=== PATIENT | female | born 1945 | race Caucasian/White ===

== ENCOUNTER → 2016-07-27 | Outpatient (CLI) | payer OTHER ==
[~2016-07-27] MED LIST: GADOBUTROL 10 ML VIAL IVP ONE; GLUCAGON,HUMAN RECOMBINANT 0.3 MG in SYRINGE 0.3 ML IVP ONE
[2016-07-27 12:30] LABS: CREATININE 0.9 mg/dL (0.6-1.0); GLOMERULAR FILTRATION RATE > 60
--- NOTE | 2016-07-27 17:40 | MR ---
MR Enterography (Abdomen and Pelvis) Without and With IV Contrast Indication: 70-year-old woman with history of Crohn disease. History of abscess. Follow up. Technique: Standard MR enterography protocol utilizing T2 and multiplanar T1 without and with contras t with fat suppression. Patient received 4 mL Gadavist intravenously without complication. Patient re ceived a total dose of 0.6 mg glucagon intravenously to minimize bowel peristalsis/motion artifact. P atient ingested 700 mL of negative oral contrast agent. Comparison: CT of the abdomen and pelvis dated December 03 and January 02, 2016. Findings: A 10-cm segment of the terminal ileum, extending to the ileocecal valve, has circumferentia l wall thickening and exuberant mucosal enhancement, indicative of active on chronic ileitis. The dis tati ileum is narrow and the small bowel just upstream from the active inflammation is mildly distende d up to 4 cm, suggestive of a low-grade partial obstruction due to underlying stricture and active in flammation. No residual abscess; however, residual architectural distortion and linear bands of enhancement commu nicating with adjacent loops of nondilated small bowel suggest fistula formation between the terminal ileum and adjacent loops of small bowel in the right lower quadrant. No free fluid. No other site of active inflammation or bowel wall thickening. No enlarged lymph node or mass. The liver, spleen, pancreas, adrenal glands, and kidneys are unremarkable. Simple bilateral renal cys ts are unchanged. No hydronephrosis. The bile ducts are normal caliber and normally taper to the major papilla. No evidence of common bile duct stone. Gallbladder is normal. No intraluminal stones or sludge. Bone marrow signal is normal. Minimal bilateral sacroiliitis is consistent with history of Crohn dise ase. Impression: 1. Active on chronic terminal ileitis and low-grade stenosis consistent with Crohn disease. 2. No residual abscess. 3. 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 4. Minimal enteropathic sacroiliitis.
== END ==
LOC: FIMAGING 11:06
PROVIDERS: ATTEND Internal Medicine Gastroenterology
DX: M46.1 Sacroiliitis, not elsewhere classified (principal); K50.814 Crohn's disease of both small and large intestine with abscess
CPT/HCPCS: 72196; 74182; A9585; J1610

== ENCOUNTER 2016-11-01 16:48 | Inpatient (IN) | payer OTHER ==
[2016-11-01] MEDS ORDERED: HYDROmorphONE/DILAUDID 1 MG/ML SYR IVP ONE ×2 (16:53→18:10)
[2016-11-01] MEDS ORDERED: NS 1,000 ML IV ONE (16:53)
[2016-11-01] MEDS ORDERED: ONDANSETRON 4 MG/2 ML VIAL IVP ONE (16:54)
--- NOTE | 2016-11-01 16:56 | EDPHY ---
H & P HPI/ROS: HPI CHIEF COMPLAINT: Abdominal pain, nausea, vomiting HISTORY OF PRESENT ILLNESS: This patient very pleasant 71-year-old female, she presents emergency room with abdominal pain x2 days with nausea vomiting. She tells me that she has a history of Crohn's disease takes daily steroids 5 mg twice daily she has had previous abdominal surgery including bowel resection. She tells me that the past 2 days she has had progressively worsening abdominal pain it is in her lower abdomen crampy with associated nausea vomiting. No bowel movement in 2 days. She thinks she may have a bowel obstruction. Past Medical History: Crohn's disease, arthritis Past Surgical History: Bowel resection, tubal ligation, SBO Social History: Denies daily use of drugs alcohol tobacco products Family History: Noncontributory ROS REVIEW OF SYSTEMS: A comprehensive 10 point review of systems is otherwise negative aside from elements mentioned in the history of present illness. Exam Constitutional triage nursing summary reviewed, vital signs reviewed, awake/ alert. Eyes normal conjunctivae and sclera, EOMI, PERRLA. HENT normal inspection, atraumatic, moist mucus membranes, no epistaxis, neck supple/ no meningismus, no raccoon eyes. Respiratory clear to auscultation bilaterally, normal breath sounds, no respiratory distress, no wheezing. Cardiovascular rate normal, regular rhythm, no murmur, no edema, distal pulses normal. Gastrointestinal mild tender palpation lower abdomen, no rebound, no guarding, normal bowel sounds, no distension, no pulsatile mass. Genitourinary no CVA tenderness. Musculoskeletal no midline vertebral tenderness, full range of motion, no calf swelling, no tenderness of extremities, no meningismus, good pulses, neurovascularly intact. Skin pink, warm, & dry, no rash, skin atraumatic. Neurologic awake, alert and oriented x 3, AAOx3, moves all 4 extremities equally, motor intact, sensory intact, CN II-XII intact, normal cerebellar, normal vision, normal speech. Psychiatric normal mood/affect. Heme/Lymph/Immune no lymphadenopathy. Differential diagnosis includes but is not limited to and in no particular order : Crohn's flare, Bowel obstruction, appendicitis, gallbladder disease, diverticulitis, colitis, enteritis, perforated viscus, gastritis, GERD, esophagitis, urinary tract infection, pyelonephritis, kidney stones Medical Decision Making: this patient had an IV established obtain blood work, patient be given a fluid bolus, IV Zofran for nausea, IV Dilaudid for pain control. Patient need a CT scan abdomen pelvis with IV contrast to rule out bowel perforation Crohn's inflammatory process or obstruction. Re-evaluation: CT scan of the abdomen pelvis with IV contrast. The results of the study are this shows a 10 cm area of focus inflammation of the distal ileum consistent with acute Crohn's however no evidence of perforation or free air no evidence of bowel obstruction The study was read by Dr. Roa I viewed the images myself on the PACS system. 182: Spoke with Dr. Olson with GI. Will See. Understands patient be admitted to the hospitalist service for Crohn's flare. Did not recommend steroids at this time. Will consult on the patient. 1825: I did update this patient she understands she will be admitted the hospital for pain control, IV fluids and Crohn's flare. No evidence of perforation free air or bowel obstruction. 1834: Spoke with the hospitalist service Dr. Arvizu who has accepted admission of this patient. Source: Patient, EMS - Personal History Tetanus Vaccine Date: >10 YEARS - Medical/Surgical History Hx Asthma: No Hx Chronic Respiratory Disease: No Hx Diabetes: No Hx Cardiac Disease: No Hx Renal Disease: No Hx Cirrhosis: No Hx Alcoholism: No Hx HIV/AIDS: No Hx Splenectomy or Spleen Trauma: No Other PMH: pmh- Depression, Chrons, DD scoliosis, SBO. psh- bowel resection 1997, breast augmentation, c-spine fusion, tubal ligation - Social History Smoking Status: Light smoker Constitutional: Initial Vital Signs Temperature (C) 36.5 C 11/01/16 16:55 Heart Rate 62 11/01/16 16:55 Respiratory Rate 16 11/01/16 16:55 Blood Pressure 168/62 H 11/01/16 16:55 O2 Sat (%) 95 11/01/16 16:55 O2 Delivery Mode Room Air Allergies/Adverse Reactions: fentanyl [Fentanyl] Allergy (Severe, Verified 05/14/14 20:23) WEIGHT LOSS, MEMORY LOSS gabapentin [From Neurontin] Allergy (Severe, Verified 05/14/14 20:23) Rash Penicillins Allergy (Severe, Verified 05/14/14 20:23) SEIZURES Sulfa (Sulfonamide Antibiotics) Allergy (Severe, Verified 05/14/14 20:23) NAUSEA morphine Allergy (Unknown, Verified 05/14/14 20:23) PT BECOMES "MEAN" tramadol [Tramadol] Allergy (Unknown, Verified 05/14/14 20:23) azathioprine [From Imuran] Allergy (Verified 12/01/15 11:22) Rash azathioprine sodium [From Imuran] Allergy (Verified 12/01/15 11:22) Rash budesonide [From Entocort EC] Allergy (Verified 12/01/15 11:24) Rash infliximab [From Remicade] Allergy (Verified 12/01/15 11:23) Itching mesalamine [From Pentasa] Allergy (Verified 12/01/15 11:23) Rash Home Medications: Medication Instructions Recorded FLUoxetine [Prozac 20 MG (*)] 60 mg PO DAILY 09/28/12 Pregabalin [LYRICA] 100 mg PO BID 09/28/12 Dicyclomine HCl 10 mg PO BID 09/28/13 oxyCODONE IR [Oxycodone Ir (*)] 15 mg PO Q6 PRN 09/28/13 Cholecalciferol Vit D3 [Vitamin D3 1,000 units PO DAILY 05/17/14 (*)] Herbals/Supplements -Info Only 1 ea PO DAILY 05/17/14 Multivitamins [Multivitamin (*)] 1 each PO DAILY 05/17/14 LORazepam [Ativan (*)] 0.25 mg PO BID #60 tab 12/05/15 Medical Decision Making - Diagnostics Imaging Results: Imaging Impressions Abdomen CT 11/01/16 16:53 Impression: 1. Status post distal small bowel resection and partial right hemicolectomy. There is a 10-cm segment of distal small bowel wall thickening compatible with Crohn's involvement, without active inflammatory changes or abscess. No significant dilatation of small bowel proximal to this. There is moderate fluid -filled distention of the stomach and right hemicolon. 2. Other findings, as above. Results called to Dr. Figueroa at 6:10 PM. - Data Points Laboratory Results: Laboratory Results 11/01/16 16:53 11/01/16 16:53 11/01/16 11/01/16 11/01/16 16:53 16:53 16:53 WBC 7.81 10^3/uL 10^3/uL (3.80-9.50) RBC 4.76 10^6/uL 10^6/uL (4.18-5.33) Hgb 14.3 g/dL g/dL (12.6-16.3) Hct 43.4 % % (38.0-47.0) MCV 91.2 fL fL (81.5-99.8) MCH 30.0 pg pg (27.9-34.1) MCHC 32.9 g/dL g/dL (32.4-36.7) RDW 15.6 % H % (11.5-15.2) Plt Count 337 10^3/uL 10^3/uL (150-400) MPV 10.4 fL fL (8.7-11.7) Neut % (Auto) 75.7 % H % (39.3-74.2) Lymph % (Auto) 15.6 % % (15.0-45.0) Imperial % (Auto) 6.8 % % (4.5-13.0) Eos % (Auto) 1.0 % % (0.6-7.6) Baso % (Auto) 0.5 % % (0.3-1.7) Nucleat RBC Rel Count 0.0 % % (0.0-0.2) Absolute Neuts (auto) 5.91 10^3/uL 10^3/uL (1.70-6.50) Absolute Lymphs (auto) 1.22 10^3/uL 10^3/uL (1.00-3.00) Absolute Monos (auto) 0.53 10^3/uL 10^3/uL (0.30-0.80) Absolute Eos (auto) 0.08 10^3/uL 10^3/uL (0.03-0.40) Absolute Basos (auto) 0.04 10^3/uL 10^3/uL (0.02-0.10) Absolute Nucleated RBC 0.00 10^3/uL 10^3/uL (0-0.01) Immature Gran % 0.4 % % (0.0-1.1) Immature Gran # 0.03 10^3/uL 10^3/uL (0.00-0.10) PT 13.3 SEC SEC (12.0-15.0) INR 1.02 (0.83-1.16) APTT 28.0 SEC SEC (23.0-38.0) VBG Lactic Acid Sodium 137 mEq/L mEq/L (134-144) Potassium 4.4 mEq/L mEq/L (3.5-5.2) Chloride 101 mEq/L mEq/L (97-110) Carbon Dioxide 26 mEq/l mEq/l (22-31) Anion Gap 10 mEq/L mEq/L (8-16) BUN 18 mg/dL mg/dL (7-23) Creatinine 0.8 mg/dL mg/dL (0.6-1.0) Estimated GFR > 60 Glucose 93 mg/dL mg/dL (70-100) Calcium 10.0 mg/dL mg/dL (8.5-10.4) Total Bilirubin 0.8 mg/dL mg/dL (0.1-1.4) Conjugated Bilirubin 0.5 mg/dL mg/dL (0.0-0.5) Unconjugated Bilirubin 0.3 mg/dL mg/dL (0.0-1.1) AST 27 IU/L IU/L (14-46) ALT 32 IU/L IU/L (9-52) Alkaline Phosphatase 66 IU/L IU/L (38-126) Total Protein 7.5 g/dL g/dL (6.3-8.2) Albumin 4.8 g/dL g/dL (3.5-5.0) Lipase 121.0 IU/L IU/L (23-300) 11/01/16 16:53 WBC RBC Hgb Hct MCV MCH MCHC RDW Plt Count MPV Neut % (Auto) Lymph % (Auto) Imperial % (Auto) Eos % (Auto) Baso % (Auto) Nucleat RBC Rel Count Absolute Neuts (auto) Absolute Lymphs (auto) Absolute Monos (auto) Absolute Eos (auto) Absolute Basos (auto) Absolute Nucleated RBC Immature Gran % Immature Gran # PT INR APTT VBG Lactic Acid 1.9 mmol/L mmol/L (0.7-2.1) Sodium Potassium Chloride Carbon Dioxide Anion Gap BUN Creatinine Estimated GFR Glucose Calcium Total Bilirubin Conjugated Bilirubin Unconjugated Bilirubin AST ALT Alkaline Phosphatase Total Protein Albumin Lipase Medications Given: Discontinued Medications Hydromorphone HCl (Dilaudid) 0.5 mg IVP EDNOW ONE Stop: 11/01/16 16:54 Last Admin: 11/01/16 17:24 Dose: 0.5 mg Hydromorphone HCl (Dilaudid) 1 mg IVP EDNOW ONE Stop: 11/01/16 18:11 Last Admin: 11/01/16 18:14 Dose: 1 mg Sodium Chloride (Ns) 1,000 mls @ 0 mls/hr IV ONCE ONE PRN Reason: Wide Open Stop: 11/01/16 16:54 Last Admin: 11/01/16 17:02 Dose: 1,000 mls Ondansetron HCl (Zofran) 4 mg IVP EDNOW ONE Stop: 11/01/16 16:55 Last Admin: 11/01/16 17:24 Dose: 4 mg Departure - Departure Disposition: [facility] Acute Clinical Impression: Abdominal pain Qualifiers: Abdominal location: generalized Qualified Code(s): R10.84 - Generalized abdominal pain Acute Crohn's disease Qualifiers: Digestive disease complication type: without complication Qualified Code(s): K50.90 - Crohn's disease, unspecified, without complications Condition: Fair Referrals: Patient,NotPresent [Unknown] - As per Instructions
[2016-11-01] MEDS ORDERED: IOPAMIDOL (ISOVUE-300) 100 ML BTL IV ONE (17:01)
[2016-11-01 17:06] LABS: % IMMATURE GRANULYOCYTES 0.4 % (0.0-1.1); ABSOLUTE IMMATURE GRANULOCYTES 0.03 10^3/uL (0.00-0.10); ADD DIFF? NO; ADD MORPH? NO; ADD SCAN? NO; ATYPICAL LYMPHOCYTE FLAG 0 (0-99); FRAGMENT RBC FLAG 0 (0-99); HEMATOCRIT 43.4 % (38.0-47.0); HEMOGLOBIN 14.3 g/dL (12.6-16.3); LEFT SHIFT FLG 0 (0-99); LIPEMIA HEMOLYSIS FLAG 80 (0-99); MEAN CELL HEMOGLOBIN CONCENTR. 32.9 g/dL (32.4-36.7); MEAN CELL VOLUME 91.2 fL (81.5-99.8); MEAN PLATELET VOLUME 10.4 fL (8.7-11.7); PLATELET CLUMPS FLAG 10 (0-99); PLATELET COUNT 337 10^3/uL (150-400); RED BLOOD CELL COUNT 4.76 10^6/uL (4.18-5.33); RED CELL DISTRIBUTION WIDTH 15.6 % (11.5-15.2)
[2016-11-01 17:17] LABS: INR 1.02 (0.83-1.16); PROTIME(PATIENT) 13.3 SEC (12.0-15.0)
[2016-11-01 17:39] LABS: ALANINE AMINOTRANSFERASE 32 IU/L (9-52); ALBUMIN 4.8 g/dL (3.5-5.0); ALKALINE PHOSPHATASE 66 IU/L (38-126); ANION GAP 10 mEq/L (8-16); ASPARTATE AMINOTRANSFERASE 27 IU/L (14-46); BILIRUBIN,TOTAL 0.8 mg/dL (0.1-1.4); BILIRUBIN-CONJUGATED 0.5 mg/dL (0.0-0.5); BILIRUBIN-UNCONJUGATED 0.3 mg/dL (0.0-1.1); CARBON DIOXIDE 26 mEq/l (22-31); CHLORIDE 101 mEq/L (97-110); CREATININE 0.8 mg/dL (0.6-1.0); GLOMERULAR FILTRATION RATE > 60; GLUCOSE 93 mg/dL (70-100); POTASSIUM 4.4 mEq/L (3.5-5.2); SODIUM 137 mEq/L (134-144); TOTAL PROTEIN 7.5 g/dL (6.3-8.2)
[2016-11-01 19:21] LABS: COLOR PALE YELLOW; LEUKOCYTE ESTERASE,URINE TRACE (NEGATIVE); NITRITE,URINE NEGATIVE (NEGATIVE)
[2016-11-01 19:28] LABS: BACTERIA NONE SEEN /hpf (NONE SEEN); MUCUS NONE SEEN /lpf (NONE-1+)
[2016-11-01] MEDS ORDERED: ACETAMINOPHEN 325 MG TAB PO PRN (21:01)
[2016-11-01] MEDS ORDERED: PREGABALIN 100 MG CAP PO SCH (21:15)
[2016-11-01] MEDS: NS 1,000 ML IV SCH (21:19)
--- NOTE | 2016-11-01 21:39 | GHP ---
[f rep st] HISTORY AND PHYSICAL DATE OF ADMISSION: 11/01/2016 CHIEF COMPLAINT: Abdominal pain. HISTORY OF PRESENT ILLNESS: This is a 71-year-old female with a history of Crohn disease. She has had previous surgery in the past. She has also had previous bowel obstructions. She sees Dr. Trejo as an outpatient. She has been on prednisone chronically. She has had chronic abdominal pain for some time which has been worsening. She does see Dr. Yee for surgery and the recommendation is fo r surgery. They think there might be a stricture at some point, perhaps in the anastomosis. A few days ago her dog became ill and her abdominal pain worsened, leading her to this admission. She fischer s not have any diarrhea, in fact feels a little bit constipated. No nausea or vomiting. No fevers or chills. REVIEW OF SYSTEMS: A 10-point review of systems was obtained and, other than stated, was negative. PAST MEDICAL HISTORY: 1. Crohn disease. 2. Chronic back pain with scoliosis. 3. Depression anxiety. PAST SURGICAL HISTORY: 1. Cervical fusion. 2. Breast augmentation. 3. Bilateral tubal ligation. 4. Bowel resection as well as lysis of adhesions. MEDICATIONS: Reviewed. SOCIAL HISTORY: No smoking or alcohol. FAMILY HISTORY: Mother of lung cancer. Father of an [place]. PHYSICAL EXAM: VITAL SIGNS: Afebrile, blood pressure is 142/76, heart rate 61, oxygen saturation 9 9% on room air. GENERAL: The patient is well developed, no apparent distress. HEENT: Nonicteric sclerae. Extraocular movements intact. Moist mucous membranes. NECK: Supple. No thyromegaly. L UNGS: Good effort. Clear to auscultation bilaterally. CARDIOVASCULAR: Regular rate and rhythm. No murmurs, gallops. ABDOMEN: Positive bowel sounds, soft, mild right upper quadrant tenderness. No rebound or guarding. EXTREMITIES: No clubbing, cyanosis, or edema. SKIN: Without rash dry int act. NEURO: Alert and oriented x3. Moving all 4 extremities equally. PSYCHIATRIC: Normal mood a nd affect. LABS: CBC is normal. Chemistry is also normal. CT scan of the abdomen and pelvis shows status pos t distal small-bowel resection and partial right hemicolectomy and there is a 10 cm segment of dista l small bowel that is thickened but no dilation prior to this. ASSESSMENT: A 71-year-old female with a history of Crohn disease, presenting with acute on chronic abdominal pain. PLAN: 1. Acute on chronic abdominal pain, possibly Crohn exacerbation. I am not sure if these inflammato ry changes seen on CT scan are chronic or new. She is not having a lot in the way of diarrhea. At this point she feels like her pain is unbearable and she wants to go ahead with surgery. I am not s ure what type of surgery Dr. Yee was thinking about. At this point, we will continue with pain co ntrol and continue her on her usual dose of steroids and will not increase this. We will have Dr. Gisell whitehead see in the morning. 2. Chronic pain. Patient is on oxycodone chronically. 3. Depression, anxiety. /[id number]/MODL
[2016-11-01] MEDS: LORazepam 0.5 MG TAB PO SCH (21:41)
[2016-11-01] MEDS: predniSONE 5 MG TAB PO SCH (21:41)
[2016-11-01] MEDS: PREGABALIN 50 MG CAP PO SCH (21:41)
[2016-11-01] MEDS: ONDANSETRON DISINTEGRATING 4 MG TAB PO PRN (21:46)
[2016-11-02 05:34] LABS: % IMMATURE GRANULYOCYTES 0.2 % (0.0-1.1); ABSOLUTE IMMATURE GRANULOCYTES 0.02 10^3/uL (0.00-0.10); ADD DIFF? NO; ADD MORPH? NO; ADD SCAN? NO; ATYPICAL LYMPHOCYTE FLAG 0 (0-99); FRAGMENT RBC FLAG 0 (0-99); HEMATOCRIT 40.3 % (38.0-47.0); HEMOGLOBIN 13.2 g/dL (12.6-16.3); LEFT SHIFT FLG 10 (0-99); LIPEMIA HEMOLYSIS FLAG 80 (0-99); MEAN CELL HEMOGLOBIN 30.3 pg (27.9-34.1); MEAN CELL HEMOGLOBIN CONCENTR. 32.8 g/dL (32.4-36.7); MEAN CELL VOLUME 92.4 fL (81.5-99.8); MEAN PLATELET VOLUME 10.2 fL (8.7-11.7); PLATELET CLUMPS FLAG 0 (0-99); PLATELET COUNT 261 10^3/uL (150-400); RED BLOOD CELL COUNT 4.36 10^6/uL (4.18-5.33); RED CELL DISTRIBUTION WIDTH 15.6 % (11.5-15.2)
[2016-11-02 06:12] LABS: ALANINE AMINOTRANSFERASE 28 IU/L (9-52); ALBUMIN 3.5 g/dL (3.5-5.0); ALKALINE PHOSPHATASE 55 IU/L (38-126); ANION GAP 8 mEq/L (8-16); ASPARTATE AMINOTRANSFERASE 19 IU/L (14-46); BILIRUBIN,TOTAL 0.7 mg/dL (0.1-1.4); CALCIUM 8.5 mg/dL (8.5-10.4); CARBON DIOXIDE 25 mEq/l (22-31); CHLORIDE 108 mEq/L (97-110); CREATININE 0.8 mg/dL (0.6-1.0); GLOMERULAR FILTRATION RATE > 60; GLUCOSE 86 mg/dL (70-100); POTASSIUM 4.5 mEq/L (3.5-5.2); SODIUM 141 mEq/L (134-144); TOTAL PROTEIN 5.8 g/dL (6.3-8.2)
[2016-11-02] MEDS: HYDROmorphONE/DILAUDID 1 MG/ML SYR IVP PRN ×2 (08:20→16:03)
[2016-11-02] MEDS ORDERED: PREGABALIN 50 MG CAP PO SCH (09:00)
[2016-11-02] MEDS: PREGABALIN 50 MG CAP PO SCH ×2 (10:17→20:55)
[2016-11-02] MEDS: NS 1,000 ML IV SCH (10:17)
[2016-11-02] MEDS: DICYCLOMINE 10 MG CAP PO SCH ×2 (10:17→20:56)
[2016-11-02] MEDS: predniSONE 5 MG TAB PO SCH ×2 (10:17→20:56)
[2016-11-02] MEDS: FLUoxetine 20 MG CAP PO SCH (10:18)
[2016-11-02] MEDS: LORazepam 0.5 MG TAB PO SCH ×2 (10:18→20:56)
[2016-11-02] MEDS: ENOXAPARIN 40 MG/0.4 ML SYR SC SCH (10:23)
--- NOTE | 2016-11-02 12:55 | GCON ---
[f rep st] CONSULTATION CONSULTATION NOTE. CHIEF COMPLAINT: Crohn disease with abdominal pain. HISTORY OF PRESENT ILLNESS: This 71-year-old woman has a longstanding history of Crohn disease. Katina moy is followed by Dr. Trejo as an outpatient. She was last seen on 10/09. 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 She has underlying terminal ileal Crohn d isease. She has had a previous small bowel resection in 1997. She had a recent MR enterography, wh ich showed long segment of active Crohn disease in the katina terminal ilium. She was asymptomatic at the time with periodic episodes of bowel obstruction best characterized by right abdominal pain, abd ominal distention, and obstipation. Symptoms typically do resolve after decompression of her abdome n with improvement of the symptoms. She has had intermittent attacks. She has been very adverse to taking any medications for Crohn disease in the past and has reviewed biologics and other immuno mo dulators. She has been intolerant to Entocort and mesalamine preparations. She has been thinking m ore about surgical resection. Biological therapy was discussed also. She does take chronic narcoti cs for back pain and hip pain. She recently was started on a course of low-dose prednisone without significant improvement of her symptoms. She has been diagnosed with sacral ileitis on previous yusra ging. She is felt to have significant stricturing and possible small bowel fistulization on recent imaging. There is probably a stenotic as well as inflammatory component of her disease. She had pr esented to the hospital with worsening abdominal pain. She had a CT scan that showed distal small b owel resection and partial right hemicolectomy. There again was a 10 cm segment of distal small bow el wall thickening compounded with patient's Crohn's involvement without significant active inflamma tion or changes of abscess. There was no significant dilatation of the proximal small bowel. There was a moderate amount of fluid-filled distention of the stomach in the right hemicolon. Otherwise unremarkable CT scan. I was asked to see patient for further evaluation. PAST MEDICAL HISTORY: Remarkable for Crohn disease, previous ileocolonic resection in 1997, chronic back pain with scoliosis and history of sacroiliitis, depression, anxiety. PAST SURGICAL HISTORY: Remarkable for cervical fusion, breast augmentation, bilateral tubal ligatio n, bowel resection as above, and previous history of lysis of adhesions. SOCIAL HISTORY: Nonsmoker, nondrinker. FAMILY HISTORY: Negative as it pertains to chief complaint. ALLERGIES: Reported to Duragesic, Entocort, fentanyl, Imuran, Neurontin, penicillin, Pentasa, sulfa drugs, and tramadol. MEDICATIONS: Prior to admission included acidophilus, cranberry extract, vitamin E, dicyclomine, fl uoxetine 20 mg three times daily, lorazepam 0.5 mg three times daily, Lyrica 100 mg twice daily, mul tivitamins, oxycodone 5 mg p.o. three times daily, and prednisone 10 mg twice daily. REVIEW OF SYSTEMS: Negative for 10 systems other than mentioned in HPI. PHYSICAL EXAMINATION: VITAL SIGNS: 104/58, pulse is 56, respiratory rate 18, 92% sat, 36.6 is her temperature. GENERAL: A very pleasant woman in no acute distress. HEENT: Normocephalic, atraumat ic. EOMI. Neck is supple. No cervical adenopathy. Mucous membranes moist. LUNGS: Clear. CARDI AC: Normal S1, S2, without murmur. ABDOMEN: Soft. Bowel sounds, multiple scars. No hepatospleno megaly. Mild tenderness to palpation. EXTREMITIES: Without clubbing, cyanosis, edema. NEURO: No nfocal. SKIN: Warm, dry, intact. PSYCH: Alert and oriented x3 with normal affect. LABORATORY DATA: White count of 8.31, hemoglobin 13.2, hematocrit 40.3, platelets of 261. PT 13.3. INR 1.02. PTT 28. Serum chemistries: Serum sodium 141, potassium 4.5, chloride 108, CO2 of 25, BUN 13, blood sugar of 86, total bilirubin 0.7, AST of 19, ALT of 28, alkaline phosphatase of 58. L ipase of 121. IMPRESSION: A 71-year-old woman with longstanding history of ileal Crohn disease with stricture for mation of the terminal ilium with probable component of active disease. She has a 10 cm segment of narrowing of the ilium with intermittent obstructive symptoms. Patient wishes to have surgery and s urgical resection. Patient would probably also benefit starting on biologics postop. However, this can be discussed with patient and Dr. Trejo. RECOMMENDATIONS: 1. Supportive care. Clear liquid diet, advance as tolerated. 2. Would recommend a surgical consultation. Patient has already met with Dr. Kassy Yee as an out patient prior to this admission. 3. Will follow with you. /[id number]/MODL
--- NOTE | 2016-11-02 13:29 | SOAPPROG ---
SOAP Progress Note Assessment/Plan: Assessment: OR at 2:3pm for lap poss open SB resection - will be made NPO Formal consult to follow Seen c Dr. Yee Objective: Vital Signs Temp Pulse Resp BP Pulse Ox 36.6 C 56 L 18 104/58 L 92 11/02/16 07:37 11/02/16 07:37 11/02/16 07:37 11/02/16 07:37 11/02/16 07:37 Laboratory Results 11/02/16 04:38 11/02/16 04:38 11/01/16 11/02/16 11/03/16 05:59 05:59 05:59 Intake Total 1800 Balance 1800 PT 13.3 SEC (12.0-15.0) 11/01/16 16:53 INR 1.02 (0.83-1.16) 11/01/16 16:53 ICD10 Worksheet Patient Problems: Problems Problem Status Onset Abdominal pain Acute Acute Crohn's disease Acute Abdominal pain, chronic, right lower quadrant Acute Bronchitis Acute Crohns disease Acute Crohns disease of small intestine Acute Intra-abdominal abscess Acute Malnutrition Acute
--- NOTE | 2016-11-02 14:00 | HOSPPROG ---
Hospitalist Progress Note Assessment/Plan: # crohn's exacerbation/abd pain - appreciate GI and surgery - OR on Thurs with Dr Yee for small bowel resection - cont prednisone, possible biologic after surgery as outpatient - pain control, supportive care Subjective: ongoing abd pain; no BM Objective: Vital Signs Temp Pulse Resp BP Pulse Ox 36.6 C 56 L 18 104/58 L 92 11/02/16 07:37 11/02/16 07:37 11/02/16 07:37 11/02/16 07:37 11/02/16 07:37 Laboratory Results 11/02/16 04:38 11/02/16 04:38 11/01/16 11/02/16 11/03/16 05:59 05:59 05:59 Intake Total 1800 Balance 1800 PT 13.3 SEC (12.0-15.0) 11/01/16 16:53 INR 1.02 (0.83-1.16) 11/01/16 16:[address] reviewed - Physical Exam Constitutional: no apparent distress, appears nourished Cardiovascular: regular rate and rhythym, no murmur, rub, or gallop Respiratory: no respiratory distress, no rales or rhonchi, clear to auscultation Gastrointestinal: normoactive bowel sounds, soft, non-tender abdomen, no palpable masses ICD10 Worksheet Patient Problems: Problems Problem Status Onset Bronchitis Acute Malnutrition Acute Crohns disease Acute Intra-abdominal abscess Acute Abdominal pain, chronic, right lower quadrant Acute Crohns disease of small intestine Acute Abdominal pain Acute Acute Crohn's disease Acute
--- NOTE | 2016-11-02 14:45 | GCON ---
[f rep st] CONSULTATION DATE OF CONSULTATION: 11/02/2016 REFERRING PHYSICIAN: Michele Willis MD HISTORY OF PRESENT ILLNESS: The patient is a 71-year-old woman with a long history of Crohn disease. She is followed by Dr. Rohan Trejo as an outpatient. She had a small bowel resection in 1997 and has been essentially symptom free since that time, with intermittent mild flares. She controls her flares with low doses of prednisone, as well as "pot tea" with relief. When we saw her as an outpatient in September, she was very against surgery or starting biologics, such as Humira. She presented to the emergency room yesterday complaining of worsening abdominal pain after her dog became sick. She denies nausea, vomiting , fevers, chills, constipation or diarrhea. She was admitted for pain control and possible surgical intervention. PAST MEDICAL HISTORY: Crohn disease, chronic back pain with scoliosis, depression, anxiety. PAST SURGICAL HISTORY: Small-bowel resection, as mentioned above; bilateral breast augmentation; cervical diskectomy, laminectomy; umbilical hernia repair; bilateral tubal ligation. SOCIAL HISTORY: She uses marijuana for medical reasons. She denies alcohol use. She is a current smoker. She is , with 2 children. FAMILY HISTORY: Mother of lung cancer, father with DC. ALLERGIES: Tylenol, Entocort, penicillins, sulfa. PHYSICAL EXAMINATION: GENERAL: Well-developed, well-nourished woman in no acute distress, sitting upright in bed, eating lunch. HEENT: Normocephalic, atraumatic. No hearing deficits. Pupils equal and round. No scleral icterus. Mucous membranes moist. NECK: Trachea midline. RESPIRATORY: No increased work of breathing. ABDOMEN: Soft, nondistended, nontender. Previous surgical scar is well healed. SKIN: Warm and dry. PSYCH: Mood and affect normal. IMPRESSION AND PLAN: The patient is a 71-year-old woman with chronic Crohn disease. She desires surgical intervention at this time. We discussed laparoscopic but possible open small-bowel resection at the area that shows on her CT to be thickened. We discussed risks of surgery, including, but not limited to, heart attack, stroke, blood clots or . We discussed risks of infection, bleeding, damage to surrounding structures, anastomotic leak, or recurrent symptoms. She understands the risks and would like to proceed. She is scheduled for surgery on , 11/04/2016, at 2:30 p.m. She will be made n.p.o. at 6:00 a.m. the morning of surgery. She will have antibiotics on- call to the operating room. We will continue to follow her until her surgery. Thank you to GI and hospitalist for co-managing. Patient seen with Dr. Kassy Yee, who agrees with the above impression and plan. I personally saw and evaluated this patient. She has recurrent small bowel obstructions. Her CT is stable. Her abdominal pain has essentially resolved. She is non tender. CTAB. We will proceed with lap likely open small bowel resection /[id number]/MODL MTDD
--- NOTE | 2016-11-02 19:27 | SOAPPROG ---
SOAP Progress Note Assessment/Plan: Assessment: saw and examined ms. garcia. full details in consultation by Sosa Ortiz PAC / Has crohns with recurrent sbo. Has thickened area of bowel. Decided that she would like to pursue surgery. Tolerating diet. Will take to OR on for small bowel resection. The risks and benefits were discussed. She is tolerating a general diet. NPO 6 am on Plan: 11/02/16 19:26 Objective: Vital Signs Temp Pulse Resp BP Pulse Ox 37.2 C 61 18 99/56 L 90 L 11/02/16 15:49 11/02/16 15:49 11/02/16 15:49 11/02/16 15:49 11/02/16 15:49 11/01/16 11/02/16 11/03/16 05:59 05:59 05:59 Intake Total 1900 Balance 1900 PT 13.3 SEC (12.0-15.0) 11/01/16 16:53 INR 1.02 (0.83-1.16) 11/01/16 16:53 ICD10 Worksheet Patient Problems: Problems Problem Status Onset Abdominal pain Acute Acute Crohn's disease Acute Abdominal pain, chronic, right lower quadrant Acute Bronchitis Acute Crohns disease Acute Crohns disease of small intestine Acute Intra-abdominal abscess Acute Malnutrition Acute
[2016-11-02] MEDS: TEMAZEPAM 15 MG CAP PO PRN (23:32)
--- NOTE | 2016-11-03 08:17 | SOAPPROG ---
SOAP Progress Note Assessment/Plan: Assessment: Crohn's Disease involving the katina-terminal ileum. 10 cm stricture. Patient with intermittent episodes of bowel obstruction. Clinically improved with normal BS and passing flatus. Surgery to do small bowel resection tomorrow. Patient c/o no BM's but not feeling uncomfortable. Plan: 1. Surgery tomorrow per Dr. foss, her help an input most appreciated. 2. Would not recommend use of oral laxatives. If patient with symptomatic constipation would recommend a fleets enema as needed. 3. Will need follow up with Dr. Trejo, post op after discharge to discuss possible additional treatment such as a biologic (Humira). Would recommend colonscopy six months post op to evaluate disease activity at the katina-terminal ileum. 11/03/16 08:11 Subjective: CC: Crohn's Disease, partial SBO and abdominal pain Patient feeling improved, tolerating PO. C/o no BM but does not feel uncomfortable. Objective: Vital Signs Temp Pulse Resp BP Pulse Ox 36.5 C 63 18 97/56 L 93 11/03/16 04:04 11/03/16 04:04 11/03/16 04:04 11/03/16 04:04 11/03/16 04:04 11/02/16 11/03/16 11/04/16 05:59 05:59 05:59 Intake Total 2350 300 Balance 2350 300 PT 13.3 SEC (12.0-15.0) 11/01/16 16:53 INR 1.02 (0.83-1.16) 11/01/16 16:53 Generic Name Dose Route Start Last Admin Trade Name Freq PRN Reason Stop Dose Admin Acetaminophen 650 mg 11/01/16 21:01 Tylenol PO 04/30/17 21:00 Q4HRS PRN Pain, Mild/Fever, Can Take PO Dicyclomine HCl 10 mg 11/02/16 09:00 11/02/16 20:56 Bentyl PO 05/01/17 08:59 10 mg BID ROLANDO Administration Enoxaparin Sodium 40 mg 11/02/16 09:00 11/02/16 10:23 Lovenox SC 05/01/17 08:59 Not Given DAILY ROLANDO Fluoxetine HCl 60 mg 11/02/16 09:00 11/02/16 10:18 Prozac PO 05/01/17 08:59 60 mg DAILY ROLANDO Administration Hydromorphone HCl 0.5 - 1 mg 11/01/16 21:03 11/02/16 16:03 Dilaudid IVP 11/11/16 21:02 0.8 mg Q2HRS PRN Administration Pain, Severe Unable to Take PO Sodium Chloride 1,000 mls @ 75 mls/hr 11/01/16 21:15 11/02/16 10:17 Ns IV 11/03/16 10:34 1,000 mls CONT ROLANDO Administration Lorazepam 0.25 mg 11/01/16 21:15 11/02/16 20:56 Ativan PO 04/30/17 21:14 0.25 mg BID ROLANDO Administration Ondansetron HCl 4 mg 11/01/16 21:01 Zofran IVP 04/30/17 21:00 Q4HRS PRN Nausea/Vomiting, Can't Take PO Ondansetron HCl 4 mg 11/01/16 21:01 11/01/16 21:46 Zofran Odt PO 04/30/17 21:00 4 mg Q4HRS PRN Administration Nausea/Vomiting, Use 1st Oxycodone HCl 15 mg 11/01/16 21:03 Oxycodone Ir PO 11/11/16 21:02 Q6 PRN Pain, Severe Prednisone 5 mg 11/01/16 21:15 11/02/16 20:56 Prednisone PO 04/30/17 21:14 5 mg BID ROLANDO Administration Pregabalin 100 mg 11/01/16 21:15 11/02/16 20:55 Lyrica PO 04/30/17 21:14 100 mg BID ROLANDO Administration Temazepam 15 mg 11/02/16 23:09 11/02/16 23:32 Restoril PO 05/01/17 23:08 15 mg HS PRN Administration Sleep/Insomnia Discontinued Medications Generic Name Dose Route Start Last Admin Trade Name Freq PRN Reason Stop Dose Admin Hydromorphone HCl 0.5 mg 11/01/16 16:53 11/01/16 17:24 Dilaudid IVP 11/01/16 16:54 0.5 mg EDNOW ONE Administration Hydromorphone HCl 1 mg 11/01/16 18:10 11/01/16 18:14 Dilaudid IVP 11/01/16 18:11 1 mg EDNOW ONE Administration Sodium Chloride 1,000 mls @ 0 mls/hr 11/01/16 16:53 11/01/16 17:02 Ns IV 11/01/16 16:54 1,000 mls ONCE ONE Administration Wide Open Iopamidol Confirm 11/01/16 17:01 Isovue-300 Administered 11/01/16 17:02 Dose 100 ml IV .STK-MED ONE Ondansetron HCl 4 mg 11/01/16 16:54 11/01/16 17:24 Zofran IVP 11/01/16 16:55 4 mg EDNOW ONE Administration Pregabalin 100 mg 11/01/16 21:15 Lyrica PO 04/30/17 21:14 BID ROLANDO Pregabalin 100 mg 11/02/16 09:00 Lyrica PO 04/30/17 21:14 BID ROLANDO Physical Exam - Physical Exam General Appearance: alert, no apparent distress Respiratory: lungs clear, normal breath sounds Cardiac/Chest: regular rate, rhythm Abdomen: normal bowel sounds, non-tender, soft Skin: normal color, warm/dry Extremities: non-tender Neuro/Psych: no motor/sensory deficits, alert, normal mood/affect ICD10 Worksheet Patient Problems: Problems Problem Status Onset Abdominal pain Acute Acute Crohn's disease Acute Abdominal pain, chronic, right lower quadrant Acute Bronchitis Acute Crohns disease Acute Crohns disease of small intestine Acute Intra-abdominal abscess Acute Malnutrition Acute
[2016-11-03] MEDS: ONDANSETRON DISINTEGRATING 4 MG TAB PO PRN ×2 (08:42→17:50)
[2016-11-03] MEDS: FLUoxetine 20 MG CAP PO SCH (09:49)
[2016-11-03] MEDS: predniSONE 5 MG TAB PO SCH ×2 (09:49→20:18)
[2016-11-03] MEDS: DICYCLOMINE 10 MG CAP PO SCH ×2 (09:49→20:18)
[2016-11-03] MEDS: ENOXAPARIN 40 MG/0.4 ML SYR SC SCH (09:49)
[2016-11-03] MEDS: PREGABALIN 50 MG CAP PO SCH ×2 (09:49→20:18)
[2016-11-03] MEDS: LORazepam 0.5 MG TAB PO SCH ×2 (09:50→18:27)
[2016-11-03] MEDS ORDERED: PNEUMOC 13-VAL CONJ-DIP CRM/PF 0.5 ML SYR IM ONE (10:36)
--- NOTE | 2016-11-03 11:53 | SOAPPROG ---
SOAP Progress Note Assessment/Plan: Assessment: 71yo F with Crohn's admitted with abdominal pain Tolerating regular diet Imaging reviewed - 10cm segment of small bowel thickening, ? fistulization on previous imaging OR tomorrow for lap poss open small bowel resection NPO after 6am. Consent signed in chart. Will receive IV cefoxitin OCTOR Pain controlled Seen c Dr. Yee S: pain controlled. tolerating regular diet. distension improved O: laying in bed, comfortable, NAD No increased WOB Abd soft, nondistended, nontender Surgical scars well healed 11/03/16 13:11 Objective: Vital Signs Temp Pulse Resp BP Pulse Ox 36.8 C 69 18 112/73 96 11/03/16 10:13 11/03/16 10:13 11/03/16 10:13 11/03/16 10:13 11/03/16 10:13 11/02/16 11/03/16 11/04/16 05:59 05:59 05:59 Intake Total 2350 300 Balance 2350 300 PT 13.3 SEC (12.0-15.0) 11/01/16 16:53 INR 1.02 (0.83-1.16) 11/01/16 16:53 ICD10 Worksheet Patient Problems: Problems Problem Status Onset Abdominal pain Acute Acute Crohn's disease Acute Abdominal pain, chronic, right lower quadrant Acute Bronchitis Acute Crohns disease Acute Crohns disease of small intestine Acute Intra-abdominal abscess Acute Malnutrition Acute
--- NOTE | 2016-11-03 12:21 | HOSPPROG ---
Hospitalist Progress Note Assessment/Plan: # crohn's exacerbation/abd pain - appreciate GI and surgery - OR tomorrow with Dr Yee for small bowel resection - cont prednisone, possible biologic after surgery as outpatient - pain control, supportive care Subjective: no BM; abd with ongoing pain, not distended; +flatus Objective: Vital Signs Temp Pulse Resp BP Pulse Ox 36.8 C 69 18 112/73 96 11/03/16 10:13 11/03/16 10:13 11/03/16 10:13 11/03/16 10:13 11/03/16 10:13 11/02/16 11/03/16 11/04/16 05:59 05:59 05:59 Intake Total 2350 300 Balance 2350 300 PT 13.3 SEC (12.0-15.0) 11/01/16 16:53 INR 1.02 (0.83-1.16) 11/01/16 16:[address] Olson's note - Physical Exam Constitutional: no apparent distress, appears nourished Cardiovascular: regular rate and rhythym, no murmur, rub, or gallop Respiratory: no respiratory distress, no rales or rhonchi, clear to auscultation Gastrointestinal: normoactive bowel sounds, other (soft, TTP mostly R sided), No guarding, No rebound, No distension ICD10 Worksheet Patient Problems: Problems Problem Status Onset Bronchitis Acute Malnutrition Acute Crohns disease Acute Intra-abdominal abscess Acute Abdominal pain, chronic, right lower quadrant Acute Crohns disease of small intestine Acute Abdominal pain Acute Acute Crohn's disease Acute
--- NOTE | 2016-11-03 18:24 | CPEKG ---
Heart Rate: 64 RR Interval: 938 P-R Interval: 132 QRSD Interval: 88 QT Interval: 388 QTC Interval: 401 P Halliday: 0 QRS Halliday: 79 T Wave Halliday: 67 EKG Severity - NORMAL ECG - EKG Impression: SINUS RHYTHM Electronically Signed By: Chucky Ahmadi 04-Nov-2016 14:16:21
[2016-11-03 18:27] LABS: HEMATOCRIT 42.7 % (38.0-47.0); HEMOGLOBIN 14.4 g/dL (12.6-16.3); MEAN CELL HEMOGLOBIN 30.4 pg (27.9-34.1); MEAN CELL HEMOGLOBIN CONCENTR. 33.7 g/dL (32.4-36.7); MEAN CELL VOLUME 90.1 fL (81.5-99.8); RED BLOOD CELL COUNT 4.74 10^6/uL (4.18-5.33); RED CELL DISTRIBUTION WIDTH 15.6 % (11.5-15.2)
[2016-11-03] MEDS ORDERED: IOPAMIDOL (ISOVUE 370) 100 ML BTL IV ONE (18:43)
[2016-11-03] MEDS: oxyCODONE IR 15 MG TAB PO PRN (20:18)
[2016-11-03] MEDS: TEMAZEPAM 15 MG CAP PO PRN (21:28)
[2016-11-03] MEDS ORDERED: LORazepam 0.5 MG TAB PO ONE (21:30)
[2016-11-04] MEDS: HYDROmorphONE/DILAUDID 1 MG/ML SYR IVP PRN ×5 (02:34→21:23)
[2016-11-04] MEDS ORDERED: LORazepam 0.5 MG TAB PO ONE (03:00)
[2016-11-04 06:21] LABS: % IMMATURE GRANULYOCYTES 0.3 % (0.0-1.1); ABSOLUTE IMMATURE GRANULOCYTES 0.02 10^3/uL (0.00-0.10); ADD DIFF? NO; ADD MORPH? NO; ADD SCAN? NO; ATYPICAL LYMPHOCYTE FLAG 0 (0-99); FRAGMENT RBC FLAG 0 (0-99); HEMATOCRIT 40.4 % (38.0-47.0); HEMOGLOBIN 13.6 g/dL (12.6-16.3); LEFT SHIFT FLG 0 (0-99); LIPEMIA HEMOLYSIS FLAG 80 (0-99); MEAN CELL HEMOGLOBIN 30.5 pg (27.9-34.1); MEAN CELL HEMOGLOBIN CONCENTR. 33.7 g/dL (32.4-36.7); MEAN CELL VOLUME 90.6 fL (81.5-99.8); MEAN PLATELET VOLUME 10.1 fL (8.7-11.7); PLATELET CLUMPS FLAG 10 (0-99); PLATELET COUNT 276 10^3/uL (150-400); RED BLOOD CELL COUNT 4.46 10^6/uL (4.18-5.33); RED CELL DISTRIBUTION WIDTH 15.6 % (11.5-15.2)
[2016-11-04 06:23] LABS: ANION GAP 5 mEq/L (8-16); CALCIUM 8.9 mg/dL (8.5-10.4); CARBON DIOXIDE 25 mEq/l (22-31); CHLORIDE 107 mEq/L (97-110); CREATININE 0.8 mg/dL (0.6-1.0); GLOMERULAR FILTRATION RATE > 60; GLUCOSE 84 mg/dL (70-100); POTASSIUM 4.3 mEq/L (3.5-5.2); SODIUM 137 mEq/L (134-144)
[2016-11-04 06:35] LABS: TROPONIN I < 0.012 ng/mL (0-0.034)
[2016-11-04] MEDS: ENOXAPARIN 40 MG/0.4 ML SYR SC SCH (07:22)
[2016-11-04] MEDS ORDERED: BUPIVACAINE 0.5% 30 ML SDV ONE (08:13)
[2016-11-04] MEDS: FLUoxetine 20 MG CAP PO SCH (09:28)
[2016-11-04] MEDS: LORazepam 0.5 MG TAB PO SCH ×2 (09:28→22:44)
[2016-11-04] MEDS: DICYCLOMINE 10 MG CAP PO SCH ×2 (09:28→21:24)
[2016-11-04] MEDS: PREGABALIN 50 MG CAP PO SCH ×3 (09:29→21:24)
[2016-11-04] MEDS: predniSONE 5 MG TAB PO SCH ×2 (09:29→21:24)
[2016-11-04] MEDS ORDERED: cefOXitin SODIUM 2 GM in D5W 100 ML IV ONE (11:21)
[2016-11-04] MEDS: LORazepam 2 MG/ML INJ IVP PRN ×2 (11:21→21:23)
--- NOTE | 2016-11-04 11:51 | HOSPPROG ---
Hospitalist Progress Note Assessment/Plan: # crohn's exacerbation/abd pain - appreciate GI and surgery - OR today with Dr Yee for small bowel resection - cont prednisone, possible biologic after surgery as outpatient - pain control, supportive care # anxiety attack - better with ativan Subjective: no acute events since last night Objective: Vital Signs Temp Pulse Resp BP Pulse Ox 36.9 C 66 18 107/60 97 11/04/16 08:45 11/04/16 08:45 11/04/16 08:45 11/04/16 08:45 11/04/16 08:45 Laboratory Results 11/04/16 05:39 11/04/16 05:39 11/03/16 11/04/16 11/05/16 05:59 05:59 05:59 Intake Total 2350 1600 Balance 2350 1600 PT 13.3 SEC (12.0-15.0) 11/01/16 16:53 INR 1.02 (0.83-1.16) 11/01/16 16:[address] Yee - OR today - Physical Exam Constitutional: no apparent distress, appears nourished, No chronically ill appearing, No uncomfortable, No cachectic Gastrointestinal: normoactive bowel sounds, soft, non-tender abdomen, no palpable masses ICD10 Worksheet Patient Problems: Problems Problem Status Onset Bronchitis Acute Malnutrition Acute Crohns disease Acute Intra-abdominal abscess Acute Abdominal pain, chronic, right lower quadrant Acute Crohns disease of small intestine Acute Abdominal pain Acute Acute Crohn's disease Acute
[2016-11-04] MEDS ORDERED: MIDAZOLAM 2 MG/2 ML VIAL ONE (14:23)
[2016-11-04] MEDS ORDERED: PROPOFOL 200 MG/20 ML VIAL ONE (14:47)
[2016-11-04] MEDS ORDERED: PROPOFOL/EMULSION 500 MG/50 ML BOTTLE IV ONE (14:48)
[2016-11-04] MEDS ORDERED: LR 1,000 ML IV ONE (15:01)
[2016-11-04] MEDS ORDERED: LIDOCAINE 2% 5 ML SDV ONE (16:22)
[2016-11-04] MEDS ORDERED: ROCURONIUM 50 MG/5 ML VIAL ONE ×2 (16:22→16:23)
[2016-11-04] MEDS ORDERED: PHENYLEPHRINE HCL 100 MCG/ML SYR ONE (16:23)
[2016-11-04] MEDS ORDERED: HYDROmorphONE/DILAUDID 2 MG/ML INJ ONE (16:25)
[2016-11-04] MEDS ORDERED: SUGAMMADEX SODIUM 200 MG/2 ML VIAL IVP ONE (16:46)
[2016-11-04] MEDS ORDERED: epHEDrine SULFATE 10 MG/ML SYR ONE (16:53)
[2016-11-04] MEDS ORDERED: HYDROmorphONE/DILAUDID 1 MG/ML SYR ONE (17:29)
--- NOTE | 2016-11-04 18:34 | POSTOPPROG ---
Post Op Note Date of Operation: 11/04/16 Surgeon: Kassy Yee Grinder Operator Automatic: michelle Anesthesiologist: randal Anesthesia: GET(General Endotracheal) Pre-op Diagnosis: chrons Post-op Diagnosis: adhesive stricture Indication: 71 yo with crohns and intermittendt sbo Procedure: lap josr, open small bowel resection Findings: adhesive disease Inf/Abcess present in the surg proc area at time of surgery?: No EBL: Minimal Specimen(s): small bowel
[2016-11-04] MEDS: D5W 1/2 NS W/ 20 KCl/L 1,000 ML IV SCH (20:03)
[2016-11-05] MEDS: HYDROmorphONE/DILAUDID 1 MG/ML SYR IVP PRN ×12 (00:36→23:58)
[2016-11-05] MEDS ORDERED: KETOROLAC 30 MG/1 ML SDV IVP ONE (01:06)
[2016-11-05] MEDS: D5W 1/2 NS W/ 20 KCl/L 1,000 ML IV SCH ×2 (06:26→19:49)
--- NOTE | 2016-11-05 06:48 | GOP ---
[f rep st] OPERATIVE REPORT DATE OF OPERATION: 11/04/2016 SURGEON: Kassy Yee MD PRODUCT SAFETY COORDINATOR: Isai Potter MD, who is needed for technical expertise and timely completion of the case. ANESTHESIA: General. ANESTHESIOLOGIST: Tonya Montes MD. PREOPERATIVE DIAGNOSIS: Crohn disease with also adhesive disease with intermittent small-bowel obstruction. POSTOPERATIVE DIAGNOSIS: Crohn disease with also adhesive disease with intermittent small-bowel obstruction. PROCEDURE PERFORMED: Laparoscopic lysis of adhesions and open small bowel resection. FINDINGS: She had a loop of proximal bowel that was adhered in her pelvis near the terminal ilium. There was no obvious fistulization. There were no stigmata of Crohn disease. SPECIMENS: Small bowel. ESTIMATED BLOOD LOSS: 25 cc. DESCRIPTION OF PROCEDURE: The patient was brought into the operating room, placed supine on the table, and general anesthesia was administered. Her abdomen was prepped and draped in the usual sterile fashion. I infiltrated all sites with 0.5% Marcaine prior to making incisions. I made an incision in the left upper quadrant. I inserted the Veress needle. It passed the hang drop test. Her abdomen insufflated easily to a pressure of 15 mmHg. I then placed a 5 mm trocar with a camera at this site. I explored her abdomen. There were no obvious stigmata of Crohn disease. She did have an area of the omentum adhesed to the upper midline incision. I, under direct vision, placed two 5 mm trocars in the lower midline. Using the Harmonic, I was able to reduce the omentum. Next, I ran the small bowel from the terminal ilium to the ligament of Treitz. At the ligament of Treitz, there appeared to be less movement of the bowel and appeared to be wrapping back on itself. I then traced the bowel distally; however, at the terminal ilium I saw another loop of bowel. At this point, I called my partner, Dr. Potter, in, and there was obvious pathology near the terminal ilium, but this appeared to be a loop of proximal bowel. I attempted laparoscopic lysis of adhesions in this area. However, it became clear that there were several loops that were adhered to each other as well as adhered to the abdominal sidewall. I removed the laparoscopic equipment. I made an incision over her prior horizontal incision in her right lower quadrant and dissected down through the skin and subcutaneous tissues. I retracted her rectus muscles medially, entered the peritoneal cavity and inserted an Carlton wound protector. I had to enlarge the incision slightly in order to safely dissect the area of concern. I ultimately was able to free the terminal ileum and the colon from the other loop of bowel. I then performed sharp dissection to continue dissecting the loop of bowel that was adhered. Once this was freed , I could see a stricture in this area. The pathology appeared to be adhesive disease rather than external stigmata of Crohn disease. I extracorporealized the bowel and ran the bowel. There were no injuries. The area that was adhesed tightly to the abdominal wall had a narrowing. I aligned the bowel along the antimesenteric borders. I placed Vicryl sutures. I then made an enterotomy in each limb of the bowel and created a [id number] functional end- to-end anastomosis. I divided the mesentery with the Harmonic Scalpel. I closed the enterotomy with a TANA 75. I closed the small defect in the mesentery with 3-0 Vicryl. The anastomosis was widely patent. The staple line was reinforced with 3-0 Vicryl. The bowel was returned to the abdominal cavity. I closed the posterior rectus sheath with 0 Vicryl. I closed the fascia with 0 PDS. I closed skin with 3-0 Vicryl and 4-0 Monocryl. Dermabond applied. She was awakened in the operating room, extubated, transferred to PACU in stable condition. /[id number]/MODL MTDD
[2016-11-05] MEDS: LORazepam 2 MG/ML INJ IVP PRN ×4 (07:42→21:01)
[2016-11-05] MEDS: DICYCLOMINE 10 MG CAP PO SCH ×2 (08:11→20:00)
[2016-11-05] MEDS: predniSONE 5 MG TAB PO SCH ×2 (08:12→20:00)
[2016-11-05] MEDS: PREGABALIN 50 MG CAP PO SCH ×2 (08:12→20:00)
[2016-11-05] MEDS: LORazepam 0.5 MG TAB PO SCH ×2 (08:12→20:00)
[2016-11-05] MEDS: FLUoxetine 20 MG CAP PO SCH (08:12)
[2016-11-05] MEDS: ENOXAPARIN 40 MG/0.4 ML SYR SC SCH (09:31)
--- NOTE | 2016-11-05 10:50 | SOAPPROG ---
<Sosa Ortiz - Last Filed: 11/05/16 10:48> SOAP Progress Note Assessment/Plan: Assessment: 71yo F with Crohn's admitted with abdominal pain POD#1 s/p ex lap with small bowel resection - pathology pending IV pain meds PRN NPO, sips and chips for comfort No nausea or vomiting PT Dispo: awaiting return of bowel function. Seen c Dr. Yee S: having pain at incision. no nausea or vomiting, no fevers O: laying in bed, comfortable, NAD NO increased WOB Hypoactive BS, softly distended, tender around surgical incisions. Incisions CDI Objective: Vital Signs Temp Pulse Resp BP Pulse Ox 37.3 C 83 18 98/57 L 95 11/05/16 09:07 11/05/16 09:07 11/05/16 09:07 11/05/16 09:07 11/05/16 09:07 Laboratory Results 11/04/16 05:39 11/04/16 05:39 11/04/16 11/05/16 11/06/16 05:59 05:59 05:59 Intake Total 1600 1350 Output Total 75 Balance 1600 1275 PT 13.3 SEC (12.0-15.0) 11/01/16 16:53 INR 1.02 (0.83-1.16) 11/01/16 16:53 ICD10 Worksheet Patient Problems: Problems Problem Status Onset Abdominal pain Acute Acute Crohn's disease Acute Abdominal pain, chronic, right lower quadrant Acute Bronchitis Acute Crohns disease Acute Crohns disease of small intestine Acute Intra-abdominal abscess Acute Malnutrition Acute <Kassy Yee - Last Filed: 11/05/16 23:22> SOAP Progress Note Assessment/Plan: Assessment: pain but admits to difficulty dealing with pain. Incision cdi. BS hypoactive. Soft. Comfortable. Encouraged ambulation Plan: 11/05/16 23:21 Objective: Vital Signs Temp Pulse Resp BP Pulse Ox 36.5 C 81 15 128/63 H 96 11/05/16 20:00 11/05/16 20:00 11/05/16 20:00 11/05/16 20:00 11/05/16 20:00 Laboratory Results 11/04/16 05:39 11/04/16 05:39 11/04/16 11/05/16 11/06/16 05:59 05:59 05:59 Intake Total 1600 1350 Output Total 75 Balance 1600 1275 PT 13.3 SEC (12.0-15.0) 11/01/16 16:53 INR 1.02 (0.83-1.16) 11/01/16 16:53
--- NOTE | 2016-11-05 14:22 | HOSPPROG ---
Hospitalist Progress Note Assessment/Plan: # crohn's exacerbation/abd pain s/p small bowel resection - bowel did not appear to have Crohn's involvement intra-operatively - cont prednisone, possible biologic after surgery as outpatient - pain control, post-op care # anxiety attack - better with ativan Subjective: s/p surgery; abd very painful Objective: Vital Signs Temp Pulse Resp BP Pulse Ox 37.1 C 80 16 109/63 99 11/05/16 13:02 11/05/16 13:02 11/05/16 13:02 11/05/16 13:02 11/05/16 13:02 Laboratory Results 11/04/16 05:39 11/04/16 05:39 11/04/16 11/05/16 11/06/16 05:59 05:59 05:59 Intake Total 1600 1350 Output Total 75 Balance 1600 1275 PT 13.3 SEC (12.0-15.0) 11/01/16 16:53 INR 1.02 (0.83-1.16) 11/01/16 16:53 - Physical Exam Constitutional: uncomfortable Cardiovascular: regular rate and rhythym, no murmur, rub, or gallop Respiratory: no respiratory distress, no rales or rhonchi, clear to auscultation Gastrointestinal: normoactive bowel sounds, soft, non-tender abdomen, no palpable masses ICD10 Worksheet Patient Problems: Problems Problem Status Onset Bronchitis Acute Malnutrition Acute Crohns disease Acute Intra-abdominal abscess Acute Abdominal pain, chronic, right lower quadrant Acute Crohns disease of small intestine Acute Abdominal pain Acute Acute Crohn's disease Acute
[2016-11-05] MEDS: ONDANSETRON 4 MG/2 ML VIAL IVP PRN (19:49)
[2016-11-06] MEDS: LORazepam 2 MG/ML INJ IVP PRN ×3 (00:53→14:50)
[2016-11-06 04:13] LABS: COLOR YELLOW; LEUKOCYTE ESTERASE,URINE 2+ (NEGATIVE); NITRITE,URINE NEGATIVE (NEGATIVE)
[2016-11-06 04:17] LABS: BACTERIA TRACE /hpf (NONE SEEN); MUCUS TRACE /lpf (NONE-1+); WBC,URINE 25-50 /hpf (0-3)
[2016-11-06] MEDS: DICYCLOMINE 10 MG CAP PO SCH ×2 (07:50→20:53)
[2016-11-06] MEDS: ENOXAPARIN 40 MG/0.4 ML SYR SC SCH (07:50)
[2016-11-06] MEDS: LORazepam 0.5 MG TAB PO SCH ×2 (07:50→20:50)
[2016-11-06 08:15] LABS: COLOR PALE YELLOW; LEUKOCYTE ESTERASE,URINE NEGATIVE (NEGATIVE); NITRITE,URINE NEGATIVE (NEGATIVE)
[2016-11-06 08:18] LABS: MUCUS TRACE /lpf (NONE-1+)
[2016-11-06] MEDS: FLUoxetine 20 MG CAP PO SCH (10:21)
[2016-11-06] MEDS: predniSONE 5 MG TAB PO SCH ×2 (10:21→20:52)
[2016-11-06] MEDS: PREGABALIN 50 MG CAP PO SCH (10:21)
[2016-11-06] MEDS: HYDROmorphONE/DILAUDID 1 MG/ML SYR IVP PRN ×4 (10:37→20:47)
[2016-11-06] MEDS: D5W 1/2 NS W/ 20 KCl/L 1,000 ML IV SCH (10:38)
--- NOTE | 2016-11-06 11:10 | SOAPPROG ---
SOAP Progress Note Assessment/Plan: Assessment: SP SB RESECTION FOR ADHESIVE STRICTURE/ PATH PENDING BUT NO OBVIOUS CROHNS AT SURGERY ABD SOFT WITH BS/ -FLATUS/ AFEBRILE, NONICTERIC CHEST CLEAR/ COR RR CONFUSED TODAY BUT PLEASANT/ DOESNT REMEMBER SURGERY/ CO A ROUGH NITE/ UO OK NEEDS MOBILIZATION Plan:AMBULATE/ ADD TORADOL/ MINIMIZE NARCS 11/06/16 11:06 Objective: Vital Signs Temp Pulse Resp BP Pulse Ox 37.1 C 96 20 130/86 H 97 11/06/16 10:28 11/06/16 07:19 11/06/16 07:19 11/06/16 07:19 11/06/16 07:19 Laboratory Results 11/04/16 05:39 11/04/16 05:39 11/05/16 11/06/16 11/07/16 05:59 05:59 05:59 Intake Total 1350 1400 Output Total 75 100 200 Balance 1275 -100 1200 PT 13.3 SEC (12.0-15.0) 11/01/16 16:53 INR 1.02 (0.83-1.16) 11/01/16 16:53 ICD10 Worksheet Patient Problems: Problems Problem Status Onset Abdominal pain Acute Acute Crohn's disease Acute Abdominal pain, chronic, right lower quadrant Acute Bronchitis Acute Crohns disease Acute Crohns disease of small intestine Acute Intra-abdominal abscess Acute Malnutrition Acute
[2016-11-06] MEDS: KETOROLAC 15 MG/1 ML SDV IVP SCH ×3 (11:50→23:39)
[2016-11-06] MEDS: ONDANSETRON 4 MG/2 ML VIAL IVP PRN (18:11)
[2016-11-06 18:35] LABS: ADD MORPH? NO; ADD SCAN? YES; ATYPICAL LYMPHOCYTE FLAG 0 (0-99); FRAGMENT RBC FLAG 0 (0-99); HEMATOCRIT 37.7 % (38.0-47.0); HEMOGLOBIN 12.8 g/dL (12.6-16.3); LIPEMIA HEMOLYSIS FLAG 90 (0-99); MEAN CELL VOLUME 88.3 fL (81.5-99.8); MEAN PLATELET VOLUME 10.1 fL (8.7-11.7); PLATELET CLUMPS FLAG 20 (0-99); PLATELET COUNT 254 10^3/uL (150-400); RED BLOOD CELL COUNT 4.27 10^6/uL (4.18-5.33); RED CELL DISTRIBUTION WIDTH 15.1 % (11.5-15.2)
[2016-11-06] MEDS: SIMETHICONE 80 MG TAB CHEW PO SCH ×2 (18:35→20:53)
[2016-11-06 18:36] LABS: LEFT SHIFT FLG 260 (0-99)
[2016-11-06 18:42] LABS: INR 1.24 (0.83-1.16); PROTIME(PATIENT) 15.6 SEC (12.0-15.0)
[2016-11-06 18:43] LABS: APTT 30.3 SEC (23.0-38.0)
[2016-11-06 18:45] LABS: ANION GAP 11 mEq/L (8-16); BILIRUBIN,TOTAL 1.2 mg/dL (0.1-1.4); CARBON DIOXIDE 23 mEq/l (22-31); CHLORIDE 100 mEq/L (97-110); CREATININE 0.6 mg/dL (0.6-1.0); GLOMERULAR FILTRATION RATE > 60; GLUCOSE 129 mg/dL (70-100); POTASSIUM 4.2 mEq/L (3.5-5.2); SODIUM 134 mEq/L (134-144)
[2016-11-06 18:57] LABS: ADD DIFF? YES; SCAN POSITIVE
[2016-11-06 19:12] LABS: PLATELET ESTIMATE ADEQUATE (ADEQ)
[2016-11-06 19:14] LABS: LARGE PLATELETS PRESENT
[2016-11-06 19:18] LABS: LACGHOST ORDER
[2016-11-06] MEDS ORDERED: NS 1,400 ML IV ONE (19:55)
--- NOTE | 2016-11-06 20:05 | HOSPPROG ---
Hospitalist Progress Note Objective: Vital Signs Temp Pulse Resp BP Pulse Ox 37.2 C 125 H 17 113/68 95 11/06/16 19:27 11/06/16 19:27 11/06/16 19:27 11/06/16 19:27 11/06/16 19:27 Laboratory Results 11/06/16 18:15 11/06/16 18:15 11/05/16 11/06/16 11/07/16 05:59 05:59 05:59 Intake Total 1350 2232 Output Total 75 100 500 Balance 1275 -100 1732 PT 15.6 SEC (12.0-15.0) H 11/06/16 18:15 INR 1.24 (0.83-1.16) H 11/06/16 18:15 ICD10 Worksheet Patient Problems: Problems Problem Status Onset Abdominal pain Acute Acute Crohn's disease Acute Abdominal pain, chronic, right lower quadrant Acute Bronchitis Acute Crohns disease Acute Crohns disease of small intestine Acute Intra-abdominal abscess Acute Malnutrition Acute
[2016-11-06] MEDS ORDERED: IPRATROPIUM/ALBUTEROL 3 ML DEYVIAL IH PRN (20:11)
--- NOTE | 2016-11-06 20:22 | HOSPPROG ---
Hospitalist Progress Note Assessment/Plan: The patient is a 71-year-old female with PMH Crohn's disease who was admitted for Crohn's exacerbation with abdominal pain, underwent small bowel resection for stricture. ASSESSMENT/PLAN: Severe sepsis Pneumonia, healthcare associated Abdominal pain Small bowel resection for stricture, pod #2 Crohn's disease Anxiety Delirium, resolved -alerted in the afternoon of sepsis flag with tachycardia and new onset fever. Ordered initial sepsis workup. Vital signs were stable at the time, patient was not hypotensive. Workup suggested severe sepsis secondary to pneumonia. -IV fluid resuscitation -IV antibiotics -cultures [id number] blood cultures, sputum culture -adding SVNs, flutter valve chest physiotherapy. Oxygen as needed. -added simethicone to help with gas. -patient resume p.o. meds today. Suspect withdrawal causing previous delirium symptoms reported by nursing, but infection may have also contributed. VTE prophylaxis: Enoxaparin Code Status: Full Status: Inpatient Disposition: Med surg This patient is new to me. Reviewed patient's chart/records for this visit. Personally discussed case with RN. ____ SUBJECTIVE: Patient was complaining of abdominal pain today. Had pain at site of surgery. Was complaining of bloating. Per nurse, patient was passing gas. Patient was complaining of frequent urination. OBJECTIVE: Physical Exam: General: The patient is a thin, elderly female who is alert and in mild acute distress. HEENT: normocephalic, extraocular movements intact, conjunctivae clear. Mucous membranes moist. Neck: trachea midline, no visible masses. CV: +S1/S2, RRR, no MRG. Resp: unlabored, CTAB no RRW. Abd: soft and nondistended. Bowel sounds present. Moderately tender centrally near surgical site. Musculoskeletal: Normal muscle tone/bulk. Neuro: cranial nerves II XII grossly intact. Intact gross motor and sensory function. Psych: Anxious mood and appropriate affect. Skin: Mild pallor. No petechiae. Heme/lymph: No peripheral edema at bilateral lower extremities. Labs/Imaging/Other Tests: Personally reviewed/interpreted. UA-no evidence of acute infection. Preliminary blood culture from 11/03- negative. White blood cells 1.49. Lactic acid 2.5. INR 1.24. PT 15.6. Total bilirubin 1.2. Chest x-ray: Personally reviewed and interpreted. Patchy bibasilar opacities. Reviewed radiology report Objective: Vital Signs Temp Pulse Resp BP Pulse Ox 37.2 C 125 H 17 113/68 95 11/06/16 19:27 11/06/16 19:27 11/06/16 19:27 11/06/16 19:27 11/06/16 19:27 Laboratory Results 11/06/16 18:15 11/06/16 18:15 11/05/16 11/06/16 11/07/16 05:59 05:59 05:59 Intake Total 1350 2232 Output Total 75 100 500 Balance 1275 -100 1732 PT 15.6 SEC (12.0-15.0) H 11/06/16 18:15 INR 1.24 (0.83-1.16) H 11/06/16 18:15 ICD10 Worksheet Patient Problems: Problems Problem Status Onset Abdominal pain Acute Acute Crohn's disease Acute Abdominal pain, chronic, right lower quadrant Acute Bronchitis Acute Crohns disease Acute Crohns disease of small intestine Acute Intra-abdominal abscess Acute Malnutrition Acute
[2016-11-06] MEDS: VANCOMYCIN 750 MG in D5W 150 ML IV SCH (20:43)
--- NOTE | 2016-11-06 21:40 | CPEKG ---
Heart Rate: 112 RR Interval: 536 P-R Interval: 136 QRSD Interval: 86 QT Interval: 304 QTC Interval: 415 P [place]: 53 QRS [place]: 74 T Wave [place]: -33 EKG Severity - BORDERLINE ECG - EKG Impression: SINUS TACHYCARDIA EKG Impression: BORDERLINE T ABNORMALITIES, INFERIOR LEADS Electronically Signed By: Yanet Rondon 08-Nov-2016 07:06:33
[2016-11-06] MEDS ORDERED: MEROPENEM 1 GM in NS 100 ML IV SCH (22:00)
[2016-11-06] MEDS: oxyCODONE IR 15 MG TAB PO PRN (23:35)
[2016-11-07 00:37] LABS: ADD DIFF? NO; ADD MORPH? NO; ADD SCAN? YES; ATYPICAL LYMPHOCYTE FLAG 50 (0-99); FRAGMENT RBC FLAG 0 (0-99); HEMATOCRIT 33.6 % (38.0-47.0); HEMOGLOBIN 11.3 g/dL (12.6-16.3); LIPEMIA HEMOLYSIS FLAG 80 (0-99); MEAN CELL HEMOGLOBIN 29.9 pg (27.9-34.1); MEAN CELL HEMOGLOBIN CONCENTR. 33.6 g/dL (32.4-36.7); MEAN CELL VOLUME 88.9 fL (81.5-99.8); MEAN PLATELET VOLUME 10.4 fL (8.7-11.7); PLATELET CLUMPS FLAG 10 (0-99); PLATELET COUNT 199 10^3/uL (150-400); RED BLOOD CELL COUNT 3.78 10^6/uL (4.18-5.33); RED CELL DISTRIBUTION WIDTH 15.1 % (11.5-15.2)
[2016-11-07 00:40] LABS: LEFT SHIFT FLG 300 (0-99)
[2016-11-07] MEDS ORDERED: POLYETHYLENE GLYCOL 3350 17 GM PKT PO PRN (00:52)
[2016-11-07] MEDS ORDERED: BISACODYL 10 MG SUPP PR PRN (00:52)
[2016-11-07] MEDS ORDERED: MAGNESIUM HYDROXIDE 30 ML UDCUP PO PRN (00:52)
[2016-11-07 01:15] LABS: SCAN POSITIVE
[2016-11-07 01:22] LABS: PLATELET ESTIMATE ADEQUATE (ADEQ)
[2016-11-07] MEDS: NS 1,000 ML IV SCH ×2 (01:56→09:51)
[2016-11-07] MEDS: HYDROmorphONE/DILAUDID 1 MG/ML SYR IVP PRN ×2 (03:47→15:01)
[2016-11-07 05:07] LABS: % IMMATURE GRANULYOCYTES 0.4 % (0.0-1.1); ABSOLUTE IMMATURE GRANULOCYTES 0.01 10^3/uL (0.00-0.10); ABSOLUTE NRBC COUNT 0.05 10^3/uL (0-0.01); ADD DIFF? NO; ADD SCAN? YES; ATYPICAL LYMPHOCYTE FLAG 0 (0-99); FRAGMENT RBC FLAG 0 (0-99); HEMATOCRIT 33.8 % (38.0-47.0); HEMOGLOBIN 11.2 g/dL (12.6-16.3); LIPEMIA HEMOLYSIS FLAG 80 (0-99); MEAN CELL HEMOGLOBIN 29.8 pg (27.9-34.1); MEAN CELL HEMOGLOBIN CONCENTR. 33.1 g/dL (32.4-36.7); MEAN CELL VOLUME 89.9 fL (81.5-99.8); PLATELET CLUMPS FLAG 0 (0-99); PLATELET COUNT 214 10^3/uL (150-400); RED BLOOD CELL COUNT 3.76 10^6/uL (4.18-5.33)
[2016-11-07 05:12] LABS: LEFT SHIFT FLG 300 (0-99); NRBC-AUTO% 1.8 % (0.0-0.2)
[2016-11-07 05:21] LABS: ANION GAP 4 mEq/L (8-16); CALCIUM 7.9 mg/dL (8.5-10.4); CARBON DIOXIDE 22 mEq/l (22-31); CHLORIDE 105 mEq/L (97-110); CREATININE 0.5 mg/dL (0.6-1.0); GLOMERULAR FILTRATION RATE > 60; GLUCOSE 101 mg/dL (70-100); MAGNESIUM 1.5 mg/dL (1.6-2.3); POTASSIUM 4.1 mEq/L (3.5-5.2); SODIUM 131 mEq/L (134-144)
[2016-11-07 05:35] LABS: SCAN POSITIVE
[2016-11-07] MEDS: KETOROLAC 15 MG/1 ML SDV IVP SCH ×4 (05:35→23:53)
[2016-11-07 05:51] LABS: PLATELET ESTIMATE ADEQUATE (ADEQ)
--- NOTE | 2016-11-07 08:38 | SOAPPROG ---
SOAP Progress Note Assessment/Plan: Assessment: SP SB RESECTION FOR ADHESIVE STRICTURE/ PATH PENDING BUT NO OBVIOUS CROHNS AT SURGERY ABD SOFT WITH BS/ -FLATUS/ AFEBRILE, NONICTERIC CHEST CLEAR/ COR RR CONFUSED TODAY BUT PLEASANT/ DOESNT REMEMBER SURGERY/ CO A ROUGH NITE/ UO OK NEEDS MOBILIZATION Plan:AMBULATE/ ADD TORADOL/ MINIMIZE NARCS 11/06/16 11:06 11/07/16 08:36 still confused/ wound ok/ abd soft/ -flatus/ no bm/ path pending/ cxr basilar atelectasis/ wbc2.7k/ mobilize Objective: Vital Signs Temp Pulse Resp BP Pulse Ox 36.3 C 86 16 95/61 L 96 11/07/16 06:40 11/07/16 06:40 11/07/16 06:40 11/07/16 07:03 11/07/16 06:40 Laboratory Results 11/07/16 04:59 11/07/16 04:39 11/06/16 11/07/16 11/08/16 05:59 05:59 05:59 Intake Total 3632 Output Total 100 1200 Balance -100 2432 PT 15.6 SEC (12.0-15.0) H 11/06/16 18:15 INR 1.24 (0.83-1.16) H 11/06/16 18:15 ICD10 Worksheet Patient Problems: Problems Problem Status Onset Abdominal pain Acute Acute Crohn's disease Acute Abdominal pain, chronic, right lower quadrant Acute Bronchitis Acute Crohns disease Acute Crohns disease of small intestine Acute Intra-abdominal abscess Acute Malnutrition Acute
[2016-11-07] MEDS: PREGABALIN 50 MG CAP PO SCH ×2 (09:52→20:48)
[2016-11-07] MEDS: SIMETHICONE 80 MG TAB CHEW PO SCH ×4 (09:52→20:49)
[2016-11-07] MEDS: SENNOSIDES/DOCUSATE SODIUM TAB PO SCH ×2 (09:52→20:49)
[2016-11-07] MEDS: DICYCLOMINE 10 MG CAP PO SCH ×2 (09:53→20:49)
[2016-11-07] MEDS: LORazepam 0.5 MG TAB PO SCH ×2 (09:53→20:49)
[2016-11-07] MEDS: predniSONE 5 MG TAB PO SCH ×2 (09:53→20:49)
[2016-11-07] MEDS: FLUoxetine 20 MG CAP PO SCH (09:53)
[2016-11-07] MEDS: ENOXAPARIN 40 MG/0.4 ML SYR SC SCH (09:56)
[2016-11-07] MEDS: VANCOMYCIN 750 MG in D5W 150 ML IV SCH (13:41)
[2016-11-07] MEDS: oxyCODONE IR 15 MG TAB PO PRN (13:52)
[2016-11-07 15:53] LABS: PLATELET ESTIMATE ADEQUATE (ADEQ)
--- NOTE | 2016-11-07 19:11 | HOSPPROG ---
Hospitalist Progress Note Assessment/Plan: The patient is a 71-year-old female with PMH Crohn's disease who was admitted for Crohn's exacerbation with abdominal pain, underwent small bowel resection for stricture. ASSESSMENT/PLAN: Severe sepsis, resolved Possible pneumonia vs Atelectasis - resolving Abdominal pain Small bowel resection for stricture, pod #3 Crohn's disease Leukopenia Hypomagnesemia Anxiety Delirium, resolved -Unclear what caused SIRS yesterday -- CXR suggests opacities which could be PNA. Pt has some hypoxemia is on O2, no cough/sputum production. D/w Dr. Doan, who believes it is atelectasis from being in bed a few days. -FU blood cultures. -IV antibiotics, empiric. May DC if blood Cx negative and pt exhibits no signs of ongoing infection. -SVNs, flutter valve chest physiotherapy. Oxygen as needed. -ISU. -Peripheral blood smear pending -daily magnesium supplement -simethicone to help with gas. -continue w/ ambulation, PT. VTE prophylaxis: Enoxaparin Code Status: Full Status: Inpatient Disposition: Med surg Personally discussed case with Surgeon and daughter. ____ SUBJECTIVE: Patient passed gas today. She was very pleased with this progress. No BM yet. Ambulated a little. OBJECTIVE: Physical Exam: General: The patient is a thin, elderly female who is alert and in mild acute distress. HEENT: normocephalic, extraocular movements intact, conjunctivae clear. Mucous membranes moist. Neck: trachea midline, no visible masses. CV: +S1/S2, RRR, no MRG. Resp: unlabored, CTAB no RRW. Abd: soft and nondistended. Bowel sounds present. Moderately tender centrally near surgical site. Musculoskeletal: Normal muscle tone/bulk. Neuro: cranial nerves II XII grossly intact. Intact gross motor and sensory function. Psych: Anxious mood and appropriate affect. Skin: Mild pallor. No petechiae. Heme/lymph: No peripheral edema at bilateral lower extremities. Labs/Imaging/Other Tests: Personally reviewed/interpreted. UA-no evidence of acute infection. Preliminary blood culture from 11/03- negative. New BCx pending. Chest x-ray: Personally reviewed and interpreted. minimal patchy opacities b/ l lower lobes. Reviewed radiology report Objective: Vital Signs Temp Pulse Resp BP Pulse Ox 36.8 C 85 16 108/72 92 11/07/16 17:00 11/07/16 17:00 11/07/16 17:00 11/07/16 17:00 11/07/16 17:00 Laboratory Results 11/07/16 04:59 11/07/16 04:39 11/06/16 11/07/16 11/08/16 05:59 05:59 05:59 Intake Total 3632 2240 Output Total 100 1200 1800 Balance -100 2432 440 PT 15.6 SEC (12.0-15.0) H 11/06/16 18:15 INR 1.24 (0.83-1.16) H 11/06/16 18:15 ICD10 Worksheet Patient Problems: Problems Problem Status Onset Abdominal pain Acute Acute Crohn's disease Acute Abdominal pain, chronic, right lower quadrant Acute Bronchitis Acute Crohns disease Acute Crohns disease of small intestine Acute Intra-abdominal abscess Acute Malnutrition Acute
[2016-11-08] MEDS: NS 1,000 ML IV SCH (00:59)
[2016-11-08] MEDS: HYDROmorphONE/DILAUDID 1 MG/ML SYR IVP PRN ×4 (02:41→18:59)
[2016-11-08 04:38] LABS: % IMMATURE GRANULYOCYTES 0.3 % (0.0-1.1); ABSOLUTE IMMATURE GRANULOCYTES 0.01 10^3/uL (0.00-0.10); ADD DIFF? NO; ADD MORPH? NO; ADD SCAN? YES; ATYPICAL LYMPHOCYTE FLAG 0 (0-99); FRAGMENT RBC FLAG 0 (0-99); HEMATOCRIT 29.4 % (38.0-47.0); HEMOGLOBIN 9.9 g/dL (12.6-16.3); LIPEMIA HEMOLYSIS FLAG 80 (0-99); MEAN CELL HEMOGLOBIN 30.4 pg (27.9-34.1); MEAN CELL HEMOGLOBIN CONCENTR. 33.7 g/dL (32.4-36.7); MEAN CELL VOLUME 90.2 fL (81.5-99.8); MEAN PLATELET VOLUME 10.3 fL (8.7-11.7); PLATELET CLUMPS FLAG 0 (0-99); PLATELET COUNT 221 10^3/uL (150-400); RED BLOOD CELL COUNT 3.26 10^6/uL (4.18-5.33); RED CELL DISTRIBUTION WIDTH 15.3 % (11.5-15.2)
[2016-11-08 04:49] LABS: ANION GAP 6 mEq/L (8-16); CALCIUM 8.1 mg/dL (8.5-10.4); CARBON DIOXIDE 22 mEq/l (22-31); CHLORIDE 107 mEq/L (97-110); CREATININE 0.6 mg/dL (0.6-1.0); GLOMERULAR FILTRATION RATE > 60; GLUCOSE 97 mg/dL (70-100); MAGNESIUM 1.7 mg/dL (1.6-2.3); POTASSIUM 3.7 mEq/L (3.5-5.2); SODIUM 135 mEq/L (134-144)
[2016-11-08 05:19] LABS: LEFT SHIFT FLG 300 (0-99)
[2016-11-08] MEDS: KETOROLAC 15 MG/1 ML SDV IVP SCH ×3 (05:24→18:14)
[2016-11-08 05:56] LABS: SCAN POSITIVE
[2016-11-08 06:02] LABS: PLATELET ESTIMATE ADEQUATE (ADEQ)
--- NOTE | 2016-11-08 08:45 | SOAPPROG ---
SOAP Progress Note Assessment/Plan: Assessment: 71yo F with Crohn's admitted with abdominal pain POD#4 s/p ex lap with small bowel resection - pathology pending Transition to PO pain meds Tolerating clear liquids- advance to low fiber No increased WOB Continue IS and ambulation PT Dispo: likely home in 1-[address] Doan S: pain controlled. no nausea or vomiting, no fevers. No shortness of breath or increased WOB, no cough O: laying in bed, comfortable, NAD, daughter at bedside NO increased WOB + BS throughout, softly distended, nontender. Incisions CDI Objective: Vital Signs Temp Pulse Resp BP Pulse Ox 36.7 C 97 18 111/65 92 11/08/16 07:41 11/08/16 07:41 11/08/16 07:41 11/08/16 07:41 11/08/16 07:41 Laboratory Results 11/08/16 04:22 11/08/16 04:22 11/07/16 11/08/16 11/09/16 05:59 05:59 05:59 Intake Total 3632 2615 819 Output Total 1200 2550 150 Balance 2432 65 669 PT 15.6 SEC (12.0-15.0) H 11/06/16 18:15 INR 1.24 (0.83-1.16) H 11/06/16 18:15 ICD10 Worksheet Patient Problems: Problems Problem Status Onset Abdominal pain Acute Acute Crohn's disease Acute Abdominal pain, chronic, right lower quadrant Acute Bronchitis Acute Crohns disease Acute Crohns disease of small intestine Acute Intra-abdominal abscess Acute Malnutrition Acute
[2016-11-08] MEDS: ENOXAPARIN 40 MG/0.4 ML SYR SC SCH (09:09)
[2016-11-08] MEDS: FLUoxetine 20 MG CAP PO SCH (09:09)
[2016-11-08] MEDS: SENNOSIDES/DOCUSATE SODIUM TAB PO SCH ×2 (09:10→20:30)
[2016-11-08] MEDS: predniSONE 5 MG TAB PO SCH ×2 (09:11→20:30)
[2016-11-08] MEDS: MAGNESIUM OXIDE 400 MG TAB PO SCH (09:11)
[2016-11-08] MEDS: PREGABALIN 50 MG CAP PO SCH ×2 (09:11→20:30)
[2016-11-08] MEDS: SIMETHICONE 80 MG TAB CHEW PO SCH ×4 (09:11→20:30)
[2016-11-08] MEDS: DICYCLOMINE 10 MG CAP PO SCH ×2 (09:12→20:30)
[2016-11-08] MEDS: oxyCODONE IR 15 MG TAB PO PRN (09:20)
[2016-11-08] MEDS: LORazepam 0.5 MG TAB PO SCH ×2 (09:24→20:32)
--- NOTE | 2016-11-08 10:31 | HOSPPROG ---
Hospitalist Progress Note Assessment/Plan: 71-year-old female with PMH of Crohn's disease who is admitted with a Crohn's exacerbation, abdominal pain and underwent a small-bowel resection for stricture. Patient is new to me today -SBO, status post small-bowel resection, pod #4. Patient is slowly improving and had a loose bowel movement today. She continues to have significant abdominal pain especially at the surgical site. Appetite is poor no vomiting. -possible pneumonia versus atelectasis, resolving patient is using IIS and has been ambulatory to the bathroom. -abdominal pain: Persists no vomiting she did move her bowels. Will continue with current pain regime. -leukopenia: Now resolved patient has been afebrile and on Levaquin and vancomycin. The surgical site is healing well without signs of inflammation or drainage. Will DC the vancomycin and continue the Levaquin. -hypo magnesiumemia, following and treating and -delirium: Resolved -DVT prophylaxis Lovenox Plan: DC the vancomycin as previous blood cultures are negative x2. 2 blood cultures are pending from 11/06. There is no signs of active infection and the patient is afebrile with a normal white count now. Continue pulmonary care incentive spirometer flutter chest physiotherapy. O2 as needed PT and OT Disposition: Patient is considering rehab or SNF for recovery. Case was discussed with the patient and her daughter Annika who was present in the room. Will have case management of explore disposition options with the patient and daughter. Subjective: Feeling slightly better. Very little appetite but no nausea or vomiting. Abdominal pain continues to be significant although it is decreasing. She moved her bowels with a loose stool today. No fever chills cough or chest pain. Objective: Vital Signs Temp Pulse Resp BP Pulse Ox 36.7 C 97 18 111/65 92 11/08/16 07:41 11/08/16 07:41 11/08/16 07:41 11/08/16 07:41 11/08/16 07:41 Laboratory Results 11/08/16 04:22 11/08/16 04:22 11/07/16 11/08/16 11/09/16 05:59 05:59 05:59 Intake Total 3632 2615 819 Output Total 1200 2550 150 Balance 2432 65 669 PT 15.6 SEC (12.0-15.0) H 11/06/16 18:15 INR 1.24 (0.83-1.16) H 11/06/16 18:15 Laboratory Tests 11/04/16 11/06/16 11/07/16 05:39 23:50 04:39 WBC 7.53 1.98 L Hgb 11.3 L Sodium 131 L 11/08/16 11/08/16 04:22 04:22 WBC 3.54 L Hgb 9.9 L Sodium 135 Afebrile; WBC was decreased and now normal; hyponatremia now resolved; ; anemia persists without bleeding signs - Time Spent With Patient Time Spent with Patient: greater than 35 minutes Time Spent with Patient: Greater than 35 minutes spent on this patients care, greater than 50% of time spent counseling, educating, and coordinating care regarding the above mentioned plan. - Pending Discharge Pending Discharge Within 24 Hours: No Pending Discharge Within 48 Hours: No - Physical Exam Constitutional: chronically ill appearing, other (Patient is in pain with abdominal pain) Eyes: PERRL, anicteric sclera Ears, Nose, Mouth, Throat: moist mucous membranes, hearing normal Cardiovascular: regular rate and rhythym, no murmur, rub, or gallop Respiratory: no respiratory distress, no rales or rhonchi Gastrointestinal: tenderness (Tenderness overall in the abdomen especially at the right abdominal surgical site which is healing well. She is tender to to light and deep palpation but no rebound is noted. Slight distention is noted with active bowel sounds.) Skin: warm Musculoskeletal: generalized weakness Neurologic: AAOx3, CN II-XII Intact Psychiatric: interacting appropriately ICD10 Worksheet Patient Problems: Problems Problem Status Onset Abdominal pain Acute Acute Crohn's disease Acute Abdominal pain, chronic, right lower quadrant Acute Bronchitis Acute Crohns disease Acute Crohns disease of small intestine Acute Intra-abdominal abscess Acute Malnutrition Acute
[2016-11-08] MEDS ORDERED: VANCOMYCIN 750 MG in D5W 150 ML IV SCH (13:30)
[2016-11-09] MEDS: KETOROLAC 15 MG/1 ML SDV IVP SCH ×4 (00:44→21:52)
[2016-11-09] MEDS: HYDROmorphONE/DILAUDID 1 MG/ML SYR IVP PRN ×3 (00:45→05:01)
[2016-11-09] MEDS: ONDANSETRON 4 MG/2 ML VIAL IVP PRN (00:52)
[2016-11-09 05:32] LABS: ABSOLUTE NRBC COUNT 0.02 10^3/uL (0-0.01); ATYPICAL LYMPHOCYTE FLAG 0 (0-99); FRAGMENT RBC FLAG 0 (0-99); HEMATOCRIT 38.3 % (38.0-47.0); HEMOGLOBIN 12.8 g/dL (12.6-16.3); LIPEMIA HEMOLYSIS FLAG 80 (0-99); MEAN CELL HEMOGLOBIN 29.7 pg (27.9-34.1); MEAN CELL HEMOGLOBIN CONCENTR. 33.4 g/dL (32.4-36.7); MEAN CELL VOLUME 88.9 fL (81.5-99.8); MEAN PLATELET VOLUME 10.1 fL (8.7-11.7); PLATELET CLUMPS FLAG 10 (0-99); PLATELET COUNT 290 10^3/uL (150-400); RED BLOOD CELL COUNT 4.31 10^6/uL (4.18-5.33); RED CELL DISTRIBUTION WIDTH 15.2 % (11.5-15.2)
[2016-11-09 05:46] LABS: ANION GAP 11 mEq/L (8-16); CALCIUM 7.9 mg/dL (8.5-10.4); CARBON DIOXIDE 21 mEq/l (22-31); CHLORIDE 107 mEq/L (97-110); CREATININE 0.7 mg/dL (0.6-1.0); GLOMERULAR FILTRATION RATE > 60; GLUCOSE 115 mg/dL (70-100); POTASSIUM 3.4 mEq/L (3.5-5.2); SODIUM 139 mEq/L (134-144)
[2016-11-09 06:23] LABS: LEFT SHIFT FLG 300 (0-99); NRBC-AUTO% 1.2 % (0.0-0.2)
[2016-11-09 06:24] LABS: ADD DIFF? YES; ADD MORPH? NO; ADD SCAN? NO
[2016-11-09 06:34] LABS: PLATELET ESTIMATE ADEQUATE (ADEQ); TOXIC GRANULATION PRESENT
[2016-11-09] MEDS: oxyCODONE IR 15 MG TAB PO PRN (07:51)
[2016-11-09] MEDS: LORazepam 2 MG/ML INJ IVP PRN (07:59)
[2016-11-09] MEDS ORDERED: NS 1,000 ML IV ONE (08:43)
[2016-11-09] MEDS: predniSONE 5 MG TAB PO SCH ×2 (08:51→21:50)
[2016-11-09] MEDS: PREGABALIN 50 MG CAP PO SCH (08:51)
[2016-11-09] MEDS: FLUoxetine 20 MG CAP PO SCH (08:52)
[2016-11-09] MEDS: SIMETHICONE 80 MG TAB CHEW PO SCH ×3 (08:52→21:50)
[2016-11-09] MEDS: ENOXAPARIN 40 MG/0.4 ML SYR SC SCH (08:52)
[2016-11-09] MEDS: MAGNESIUM OXIDE 400 MG TAB PO SCH (08:52)
--- NOTE | 2016-11-09 09:00 | SOAPPROG ---
SOAP Progress Note Assessment/Plan: Assessment: 71yo F with Crohn's admitted with abdominal pain POD#5 s/p ex lap with small bowel resection - pathology without overt evidence of crohns. +BM and flatus Increased pain this morning Hypotensive and tachy - 1L bolus NS. H/H stable Check AXR stat Back off on diet - clear liquids Continue IS and ambulation PT Will have Dr. Doan see this morning Dispo: home when CV stable and pain controlled. full return of bowel function S: increased pain this morning. she feels very tired. no nausea or vomiting, no fevers. No shortness of breath or increased WOB, no cough. urinating, no dysuria O: laying in bed, tired, daughter at bedside CTAB anteriorly + BS, distended but soft, tender RLQ. Incisions CDI 11/09/16 09:01 11/15/16 16:28 Objective: Vital Signs Temp Pulse Resp BP Pulse Ox 36.6 C 110 H 20 79/56 L 93 11/09/16 08:00 11/09/16 08:00 11/09/16 08:00 11/09/16 08:00 11/09/16 08:00 Microbiology 11/03/16 18:38 Blood Culture - Final Blood 11/03/16 18:38 Blood Culture - Final Blood Laboratory Results 11/09/16 04:56 11/09/16 04:56 11/08/16 11/09/16 11/10/16 05:59 05:59 05:59 Intake Total 2615 3219 Output Total 2550 475 Balance 65 2744 PT 15.6 SEC (12.0-15.0) H 11/06/16 18:15 INR 1.24 (0.83-1.16) H 11/06/16 18:15 ICD10 Worksheet Patient Problems: Problems Problem Status Onset Abdominal pain Acute Acute Crohn's disease Acute Abdominal pain, chronic, right lower quadrant Acute Bronchitis Acute Crohns disease Acute Crohns disease of small intestine Acute Intra-abdominal abscess Acute Malnutrition Acute
[2016-11-09] MEDS: LORazepam 0.5 MG TAB PO SCH (09:20)
[2016-11-09] MEDS: DICYCLOMINE 10 MG CAP PO SCH (09:21)
[2016-11-09] MEDS: SENNOSIDES/DOCUSATE SODIUM TAB PO SCH (09:21)
[2016-11-09] MEDS ORDERED: NS 1,000 ML IV SCH (09:45)
--- NOTE | 2016-11-09 09:45 | HOSPPROG ---
Hospitalist Progress Note Assessment/Plan: 71-year-old female with PMH of Crohn's disease who is admitted with a Crohn's exacerbation, abdominal pain and underwent Lysis of adhesions for stricture, and then end to end bowel anastomosis. She is postop day 5 Today a new problem of tachypnea tachycardia and new distention of the abdomen. -Sepsis with tachypnea, tachycardia, hypotension, and slightly increased hypoxemia today, new. We will give fluids get x-rays of the abdomen and chest, and review. Patient will be transferred to the ICU. CT angiography of the abdomen shows free air and a large amount of fluid. By report she had a large bowel movement this morning a sample will be sent for C difficile but it is likely this represents an intra-abdominal surgical problem. -SBO, status post small-bowel resection, pod #5. question here of C difficile and a stool sample will be sent. She continues to have significant abdominal pain especially at the surgical site. Appetite is poor no vomiting. -possible pneumonia versus atelectasis. Patient is using IS. Today she is slightly more hypoxic with abdominal pain. -abdominal pain: Persists no vomiting she did move her bowels. Will continue with current pain regime. -leukopenia: had been improving and now has a leukocytosis with the acute sepsis. She was on Levaquin for possible pneumonia. This will be changed to Invanz in light of her acute abdominal findings. -hypo magnesiumemia, following and treating. -delirium: Resolved -DVT prophylaxis Lovenox Plan: DC the vancomycin as previous blood cultures are negative x2. 2 blood cultures are pending from 11/06. Repeat blood cultures today unchanged Levaquin to Invanz. Transfer to the ICU. Disposition: Patient transferred to the ICU. Case was discussed with Dr. Doan, Dr. Balaji Jackson in the ICU, and Radiology. X-rays were reviewed personally by myself. Subjective: Tachypnea tachycardia and a increased abdominal pain with shortness of breath today. No fever. Objective: Vital Signs Temp Pulse Resp BP Pulse Ox 36.8 C 105 H 24 H 91/51 L 96 11/09/16 09:08 11/09/16 09:08 11/09/16 09:08 11/09/16 09:08 11/09/16 09:08 Microbiology 11/03/16 18:38 Blood Culture - Final Blood 11/03/16 18:38 Blood Culture - Final Blood Laboratory Results 11/09/16 04:56 11/09/16 04:56 11/08/16 11/09/16 11/10/16 05:59 05:59 05:59 Intake Total 2615 3219 Output Total 2550 475 Balance 65 2744 PT 15.6 SEC (12.0-15.0) H 11/06/16 18:15 INR 1.24 (0.83-1.16) H 11/06/16 18:15 - Time Spent With Patient Time Spent with Patient: greater than 35 minutes Time Spent with Patient: Greater than 35 minutes spent on this patients care, greater than 50% of time spent counseling, educating, and coordinating care regarding the above mentioned plan. - Pending Discharge Pending Discharge Within 24 Hours: No Pending Discharge Within 48 Hours: No - Physical Exam Constitutional: other (Acutely ill appearing and in pain with increased abdominal distention.) Eyes: PERRL, anicteric sclera Ears, Nose, Mouth, Throat: moist mucous membranes, hearing normal Cardiovascular: tachycardia Respiratory: clear to auscultation, reduced air movement Gastrointestinal: other (Hypoactive bowel sounds with distention greater than yesterday. There is increased tenderness around the surgical site without rebound.) Genitourinary: no bladder fullness Skin: warm Musculoskeletal: generalized weakness Neurologic: AAOx3, CN II-XII Intact, other (Appears in distress) Psychiatric: interacting appropriately ICD10 Worksheet Patient Problems: Problems Problem Status Onset Bronchitis Acute Malnutrition Acute Crohns disease Acute Intra-abdominal abscess Acute Abdominal pain, chronic, right lower quadrant Acute Crohns disease of small intestine Acute Abdominal pain Acute Acute Crohn's disease Acute
[2016-11-09 10:28] LABS: ADD MORPH? NO; ATYPICAL LYMPHOCYTE FLAG 0 (0-99); FRAGMENT RBC FLAG 0 (0-99); HEMATOCRIT 33.4 % (38.0-47.0); HEMOGLOBIN 11.5 g/dL (12.6-16.3); LIPEMIA HEMOLYSIS FLAG 90 (0-99); MEAN CELL HEMOGLOBIN 29.9 pg (27.9-34.1); MEAN CELL HEMOGLOBIN CONCENTR. 34.4 g/dL (32.4-36.7); PLATELET CLUMPS FLAG 10 (0-99); PLATELET COUNT 251 10^3/uL (150-400); RED BLOOD CELL COUNT 3.84 10^6/uL (4.18-5.33); RED CELL DISTRIBUTION WIDTH 15.4 % (11.5-15.2)
[2016-11-09 10:48] LABS: LEFT SHIFT FLG 300 (0-99)
[2016-11-09] MEDS ORDERED: ALTEPLASE 2 MG VIAL IVP PRN (10:54)
[2016-11-09 10:57] LABS: ANION GAP 11 mEq/L (8-16); CALCIUM 7.4 mg/dL (8.5-10.4); CARBON DIOXIDE 18 mEq/l (22-31); CHLORIDE 109 mEq/L (97-110); GLOMERULAR FILTRATION RATE 55; GLUCOSE 120 mg/dL (70-100); MAGNESIUM 1.9 mg/dL (1.6-2.3); POTASSIUM 3.3 mEq/L (3.5-5.2); SODIUM 138 mEq/L (134-144)
[2016-11-09 11:24] LABS: ADD DIFF? YES; ADD SCAN? NO; SCAN POSITIVE
[2016-11-09] MEDS ORDERED: NOREPINEPHRINE/NS 4 MG/500 ML BAG IV ONE (12:31)
[2016-11-09 12:32] LABS: MICROCYTES 1+; PLATELET ESTIMATE ADEQUATE (ADEQ); POLYCHROMASIA 2+
[2016-11-09 12:33] LABS: ECHINOCYTES 1+; GIANT PLATELETS PRESENT
[2016-11-09] MEDS ORDERED: IOPAMIDOL (ISOVUE-300) 100 ML BTL ONE (12:57)
[2016-11-09] MEDS ORDERED: PHENYLEPHRINE HCL 50 MG in D5W 250 ML IV SCH (13:00)
[2016-11-09] MEDS ORDERED: VASOPRESSIN/DEXTROSE 250 ML IV SCH (13:00)
--- NOTE | 2016-11-09 13:55 | SOAPPROG ---
SOAP Progress Note Assessment/Plan: Assessment: SP SB RESECTION FOR ADHESIVE STRICTURE/ PATH PENDING BUT NO OBVIOUS CROHNS AT SURGERY ABD SOFT WITH BS/ -FLATUS/ AFEBRILE, NONICTERIC CHEST CLEAR/ COR RR CONFUSED TODAY BUT PLEASANT/ DOESNT REMEMBER SURGERY/ CO A ROUGH NITE/ UO OK NEEDS MOBILIZATION Plan:AMBULATE/ ADD TORADOL/ MINIMIZE NARCS 11/06/16 11:06 11/07/16 08:36 still confused/ wound ok/ abd soft/ -flatus/ no bm/ path pending/ cxr basilar atelectasis/ wbc2.7k/ mobilize 11/09/16 13:54 DRAMATIC CHANGE TODAY/ MARKEDLY DISTENDED WITH ACTIVE BS/ MINIMAL FLATUS/ AFEBRILE/ WBC 2.6K WILL CHECK CT AND MOVE TO ICU Objective: Vital Signs Temp Pulse Resp BP Pulse Ox 37.1 C 112 H 20 74/50 L 92 11/09/16 10:26 11/09/16 12:30 11/09/16 12:30 11/09/16 12:30 11/09/16 12:30 Microbiology 11/03/16 18:38 Blood Culture - Final Blood 11/03/16 18:38 Blood Culture - Final Blood Laboratory Results 11/09/16 10:15 11/09/16 10:15 11/08/16 11/09/16 11/10/16 05:59 05:59 05:59 Intake Total 2615 3219 Output Total 2550 475 Balance 65 2744 PT 15.6 SEC (12.0-15.0) H 11/06/16 18:15 INR 1.24 (0.83-1.16) H 11/06/16 18:15 ICD10 Worksheet Patient Problems: Problems Problem Status Onset Abdominal pain Acute Acute Crohn's disease Acute Abdominal pain, chronic, right lower quadrant Acute Bronchitis Acute Crohns disease Acute Crohns disease of small intestine Acute Intra-abdominal abscess Acute Malnutrition Acute
[2016-11-09] MEDS: HYDROCORTISONE 100 MG/2 ML VIAL IVP SCH ×2 (14:17→22:15)
[2016-11-09] MEDS: ERTAPENEM 1 GM in NS 100 ML IV SCH (14:19)
--- NOTE | 2016-11-09 14:20 | CPEKG ---
Heart Rate: 119 RR Interval: 504 P-R Interval: 128 QRSD Interval: 78 QT Interval: 312 QTC Interval: 439 P [place]: -11 QRS [place]: 66 T Wave [place]: 27 EKG Severity - OTHERWISE NORMAL ECG - EKG Impression: SINUS TACHYCARDIA Electronically Signed By: Yanet Rondon 09-Nov-2016 17:06:29
[2016-11-09] MEDS: NOREPINEPHRINE/NS 500 ML IV SCH (14:29)
[2016-11-09 14:48] LABS: ANION GAP 9 mEq/L (8-16); CALCIUM 6.6 mg/dL (8.5-10.4); CARBON DIOXIDE 18 mEq/l (22-31); CHLORIDE 110 mEq/L (97-110); CREATININE 0.8 mg/dL (0.6-1.0); GLOMERULAR FILTRATION RATE > 60; GLUCOSE 82 mg/dL (70-100); MAGNESIUM 1.8 mg/dL (1.6-2.3); POTASSIUM 3.5 mEq/L (3.5-5.2); SODIUM 137 mEq/L (134-144)
[2016-11-09 14:59] LABS: TROPONIN I < 0.012 ng/mL (0-0.034)
[2016-11-09] MEDS ORDERED: BUPIVACAINE 0.5% 30 ML SDV ONE (15:53)
[2016-11-09] MEDS ORDERED: THROMBIN(HUM PLAS)/FIBRINOG/CA 5 ML VIAL TP ONE (15:53)
[2016-11-09] MEDS ORDERED: POLYMYXIN B SULFATE 500,000 UNIT/10 ML SYR IRR ONE (15:53)
[2016-11-09] MEDS ORDERED: BACITRACIN 50,000 UNITS/10 ML SYR IRR ONE (15:56)
[2016-11-09] MEDS ORDERED: PROPOFOL 200 MG/20 ML VIAL ONE (17:22)
--- NOTE | 2016-11-09 17:31 | SOAPPROG ---
SOAP Progress Note Assessment/Plan: Assessment: SP SB RESECTION FOR ADHESIVE STRICTURE/ PATH PENDING BUT NO OBVIOUS CROHNS AT SURGERY ABD SOFT WITH BS/ -FLATUS/ AFEBRILE, NONICTERIC CHEST CLEAR/ COR RR CONFUSED TODAY BUT PLEASANT/ DOESNT REMEMBER SURGERY/ CO A ROUGH NITE/ UO OK NEEDS MOBILIZATION Plan:AMBULATE/ ADD TORADOL/ MINIMIZE NARCS 11/06/16 11:06 11/07/16 08:36 still confused/ wound ok/ abd soft/ -flatus/ no bm/ path pending/ cxr basilar atelectasis/ wbc2.7k/ mobilize 11/09/16 13:54 DRAMATIC CHANGE TODAY/ MARKEDLY DISTENDED WITH ACTIVE BS/ MINIMAL FLATUS/ AFEBRILE/ WBC 2.6K WILL CHECK CT AND MOVE TO ICU 11/09/16 17:29 ct shows some free air and lots of ascites/ requiring pressors for bp/ uo diminished/ abd distended and tender risks and options fully discussed with pt and family who wish to proceed with urgent laparotomy Objective: Vital Signs Temp Pulse Resp BP Pulse Ox 36.9 C 119 H 24 H 97/60 L 95 11/09/16 14:00 11/09/16 17:00 11/09/16 17:00 11/09/16 17:00 11/09/16 17:00 Microbiology 11/03/16 18:38 Blood Culture - Final Blood 11/03/16 18:38 Blood Culture - Final Blood Laboratory Results 11/09/16 10:15 11/09/16 14:00 11/08/16 11/09/16 11/10/16 05:59 05:59 05:59 Intake Total 2615 3219 3090 Output Total 2550 475 150 Balance 65 2744 2940 PT 15.6 SEC (12.0-15.0) H 11/06/16 18:15 INR 1.24 (0.83-1.16) H 11/06/16 18:15 ICD10 Worksheet Patient Problems: Problems Problem Status Onset Abdominal pain Acute Acute Crohn's disease Acute Abdominal pain, chronic, right lower quadrant Acute Bronchitis Acute Crohns disease Acute Crohns disease of small intestine Acute Intra-abdominal abscess Acute Malnutrition Acute
[2016-11-09] MEDS ORDERED: MIDAZOLAM 2 MG/2 ML VIAL ONE (17:37)
[2016-11-09] MEDS ORDERED: HYDROmorphONE/DILAUDID 2 MG/ML INJ ONE (17:48)
[2016-11-09] MEDS ORDERED: SUGAMMADEX SODIUM 200 MG/2 ML VIAL IVP ONE (18:51)
[2016-11-09] MEDS ORDERED: ROCURONIUM 50 MG/5 ML VIAL ONE (18:51)
[2016-11-09] MEDS ORDERED: ONDANSETRON 4 MG/2 ML VIAL ONE (18:52)
[2016-11-09] MEDS ORDERED: PROTOCOL MAGNESIUM 1 DOSE IV PRN (19:26)
[2016-11-09] MEDS ORDERED: PROTOCOL POTASSIUM 1 DOSE MISC PRN (19:26)
[2016-11-09 21:10] LABS: ANION GAP 7 mEq/L (8-16); CALCIUM 6.9 mg/dL (8.5-10.4); CARBON DIOXIDE 19 mEq/l (22-31); CHLORIDE 112 mEq/L (97-110); CREATININE 0.7 mg/dL (0.6-1.0); GLOMERULAR FILTRATION RATE > 60; GLUCOSE 81 mg/dL (70-100); POTASSIUM 3.5 mEq/L (3.5-5.2); SODIUM 138 mEq/L (134-144)
[2016-11-09] MEDS ORDERED: ALBUMIN 5% 500 ML IV ONE (21:30)
--- NOTE | 2016-11-09 21:38 | GCON ---
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 She was admitte d on 11/01/2016 with what was thought to be a Crohn's exacerbation. She was managed conservatively at first, and eventually went for small-bowel resection and lysis of adhesions on 11/04. The surger y itself was uncomplicated, though she did develop fever on 11/06 with a normal blood pressure. She was given, I believe, Levaquin and vancomycin, as well as oxygen based on a chest x-ray that showed minor atelectasis. Blood cultures were negative at the time. She remains relatively stable, but h as continued to have issues of ongoing abdominal pain. Her blood pressure dropped a little bit yest erday, she got IV fluids, but today was down in the 70s, so she was transferred to the ICU. Started on Levophed and sepsis protocol. In terms of symptoms, the patient reports ongoing abdominal pain, and says that today's pain was certainly worse than it had been previously, and was sudden onset, a nd the drop in blood pressure was relatively acute. She has been getting prednisone 5 mg a day, but not stress dose steroids that I am aware of. She denies any shortness of breath or cough. No luis carlos rs. Review of systems otherwise negative. PAST MEDICAL HISTORY: Crohn's disease, chronic back pain with scoliosis, depression with anxiety. PAST SURGICAL HISTORY: Cervical fusion, breast augmentation, tubal ligation, previous bowel resecti ons and lysis of adhesions. SOCIAL HISTORY: She is a nonsmoker. No alcohol. FAMILY HISTORY: Lung cancer, coronary artery disease. MEDICATIONS: DuoNeb, Dulcolax, Bentyl, Lovenox, Prozac, Toradol, Ativan, Zofran, pantoprazole, pred nisone, Lyrica, Restoril. EXAM: VITAL SIGNS: Blood pressure was 74/58, heart rate of 112, respiratory rate 20, oxygen satura tion 92% on 2 L. GENERAL: She is awake, alert, oriented x3, in no apparent distress. Able to spea k in full sentences without using accessory muscles for breathing. HEENT: Pupils equally round, re active to light. Nonicteric and noninjected. Mucous membranes are dry, but otherwise neck is suppl e without adenopathy or jugular vein distention. LUNGS: Breath sounds are clear to auscultation bi laterally without wheezes, rubs or rales. HEART: Regular rate and rhythm without murmurs, rubs, or gallops. ABDOMEN: Firm, tender particularly in the left upper quadrant. Her surgical incision is clean and dry without evidence of obvious infection. EXTREMITIES: No clubbing, cyanosis, or edema . NEUROLOGIC: Nonfocal, including cranial nerves and deep tendon reflexes. SKIN: Warm and dry wi thout evidence of rash. LABORATORY DATA: White count of 2.18, with a hematocrit of 33, platelets of 251. Her basic metabol ic panel was relatively unremarkable, though her bicarb was dropping to 18. Her creatinine was 1.02 . Blood cultures were drawn. They were negative from 11/06. A chest x-ray from earlier today shows no significant infiltrate. She also had an abdominal CT scan, for which the official read is currently pending, but it is rumor ed to involve perforation and bleeding in the low pelvis. ASSESSMENT/PLAN: 1. Septic shock probably from abdominal bowel perforation. I would like to get the official read o n that. A surgical consult is pending at this time. I have started her on Zosyn, as well as Flagyl . In addition to her cultures, we will make sure she does not have C diff as well. I believe she i s already on vancomycin. She also will require stress dose steroids, so hydrocortisone was started because of the severe hypotension. I see little to support an acute coronary syndrome at this time. She has been getting some Dilaudid, but there is no spinal cord involvement, and it is not likely to explain her hypotension. 2. Crohn's disease. Stress dose steroids would be useful for this as well. 3. Diabetes. We will have to watch her blood sugars given the higher dose steroids. Total of about 45 minutes of critical care time was required for this patient. /[id number]/MODL
[2016-11-09] MEDS: PANTOPRAZOLE SODIUM 40 MG in NS 100 ML IV SCH (22:14)
[2016-11-09] MEDS: POTASSIUM Cl (KCl) 50 ML IV SCH (23:30)
[2016-11-10] MEDS: POTASSIUM Cl (KCl) 50 ML IV SCH ×8 (00:30→23:20)
[2016-11-10] MEDS: NOREPINEPHRINE/NS 500 ML IV SCH ×2 (02:00→11:34)
[2016-11-10 05:44] LABS: BASE EXCESS -6.7 mEq/L (-2.5-2.5); BICARBONATE 19 mEq/L (22-26); MEASURED OXYGEN SATURATION 85 % (92-95); PCO2 40 mmHg (34-38); PO2 54 mmHg (65-75); TCO2 20 mEq/L (23-27)
[2016-11-10] MEDS: HYDROCORTISONE 100 MG/2 ML VIAL IVP SCH ×3 (05:50→21:24)
[2016-11-10 06:05] LABS: ANION GAP 8 mEq/L (8-16); CALCIUM 7.4 mg/dL (8.5-10.4); CARBON DIOXIDE 20 mEq/l (22-31); CHLORIDE 114 mEq/L (97-110); CREATININE 0.6 mg/dL (0.6-1.0); GLOMERULAR FILTRATION RATE > 60; GLUCOSE 73 mg/dL (70-100); MAGNESIUM 2.4 mg/dL (1.6-2.3); POTASSIUM 4.1 mEq/L (3.5-5.2); SODIUM 142 mEq/L (134-144)
[2016-11-10 06:15] LABS: ADD MORPH? NO; ADD SCAN? YES; ATYPICAL LYMPHOCYTE FLAG 0 (0-99); FRAGMENT RBC FLAG 0 (0-99); HEMATOCRIT 29.8 % (38.0-47.0); HEMOGLOBIN 10.1 g/dL (12.6-16.3); LIPEMIA HEMOLYSIS FLAG 90 (0-99); MEAN CELL HEMOGLOBIN 30.3 pg (27.9-34.1); MEAN CELL HEMOGLOBIN CONCENTR. 33.9 g/dL (32.4-36.7); MEAN CELL VOLUME 89.5 fL (81.5-99.8); MEAN PLATELET VOLUME 10.3 fL (8.7-11.7); PLATELET CLUMPS FLAG 40 (0-99); PLATELET COUNT 242 10^3/uL (150-400); RED BLOOD CELL COUNT 3.33 10^6/uL (4.18-5.33); RED CELL DISTRIBUTION WIDTH 15.9 % (11.5-15.2)
[2016-11-10 06:16] LABS: LEFT SHIFT FLG 300 (0-99)
[2016-11-10] MEDS ORDERED: FUROSEMIDE 20 MG/2 ML VIAL IVP ONE (06:23)
[2016-11-10] MEDS: HYDROmorphONE/DILAUDID 1 MG/ML SYR IVP PRN ×3 (06:59→14:50)
[2016-11-10 07:18] LABS: ADD DIFF? YES; SCAN POSITIVE
[2016-11-10 07:25] LABS: ECHINOCYTES 1+; MICROCYTES 1+; PLATELET ESTIMATE ADEQUATE (ADEQ); POLYCHROMASIA 1+; TOXIC GRANULATION PRESENT; TOXIC VACUOLIZATION PRESENT
--- NOTE | 2016-11-10 07:40 | GOP ---
[f rep st] OPERATIVE REPORT DATE OF OPERATION: 11/09/2016 SURGEON: Denis Doan MD WIPING RAG WASHER: CHHAYA Calvert ANESTHESIOLOGIST: Franklin Agudelo M.D. PREOPERATIVE DIAGNOSIS: Peritonitis. POSTOPERATIVE DIAGNOSIS: Perforated ileocolonic anastomosis with peritonitis. PROCEDURE PERFORMED: Laparotomy with extensive adhesiolysis,, ileocolic resection with end ileostomy, peritoneal lavage and ABThera 0 wound VAC placement, drainage of retroperitoneal abscess FINDINGS: The patient was found to have diffuse cloudy fluid and fibrinous exudate throughout the abdominal cavity in all quadrants and spaces. A previous anastomosis done 5 days ago was quite viable and intact. The problem was found in the right upper quadrant fixed to the right lateral retroperitoneal wall. There was an inflammatory piece of bowel suggestive of recurrent Crohn's where a previous old ileocolic anastomosis had been made. This was heavily inflamed and fixed to the right abdominal wall and retroperitoneum and appeared to have a perforation at the end. There was necrotic abscess tissue in the area, but not a lot of gross actual pus. DESCRIPTION OF PROCEDURE: The patient was taken to the operating room, where she received satisfactory general endotracheal anesthesia by Dr. Agudelo. She was placed in the supine position, prepped and draped in usual sterile fashion. A midline abdominal incision was made and carried through to the linea alba. The abdomen was carefully entered. It became apparent that there was bile- stained cloudy infected fluid throughout the abdomen. The incision was traumatically enlarged. Fibrinous adhesions were broken down. The small bowel was eventually eviscerated out of the abdomen. All the pockets were broken down and adhesions were lysed. The previous anastomosis was identified and was only less than 2 feet from the ligament of Treitz and it appeared to be intact and healing well. The small bowel lead up to the right upper quadrant where a previous ileocolic anastomosis was present. It was markedly fixed and inflamed in that area and difficult to free up. This was eventually freed up with sharp dissection entering the retroperitoneal cavity with this small perforation at the very end of the anastomosis. So the bowel was all freed up. The terminal ileum was divided with a TANA stapler and the right transverse colon was divided with a TANA stapler. Mesentery between the two was divided with the Harmonic Scalpel and the specimen was removed and sent to Pathology. The wound was then massively irrigated with over 10 L of saline washing out all corners of the abdomen. A 15 round silicone JAS drain was brought out through a right flank stab incision and placed in the abscess pocket in the right upper quadrant and secured at the skin with a nylon suture. The cut end of the transverse colon was marked with some Prolene sutures and left in the upper abdomen. The terminal ileum was brought out through a circular incision in the left lower quadrant. This was chosen because of a recent incision in the right lower quadrant. The ostomy was brought up through this 2 cm incision and was secured at the fascia with interrupted 3-0 Vicryl sutures. An ABThera was placed in the abdomen covering the bowels and 2 large stay sutures of #1 PDS were created above and below the ileostomy site, partially closing the abdomen. The ABThera was covered with additional blue foam which was then covered with a sticky drape and then attached to the wound VAC suction which appeared to work well with no air leak despite the ileostomy coming out in the left lower quadrant. Ileostomy was then matured using 4-0 Vicryl interrupted sutures to create a lovelock type ileostomy nipple. Ostomy appliance was applied and she was taken to the recovery room in satisfactory condition. Blood loss from the procedure was less than 25 cc. There were no complications. She tolerated the procedure well. She was taken to the recovery room in satisfactory condition. PROCEDURE: Exploratory laparotomy with ileocolonic resection and drainage of perforation, extensive lysis of adhesions and extensive peritoneal lavage with ABThera wound VAC placement. /[id number]/MODL MTDD
[2016-11-10] MEDS ORDERED: ENOXAPARIN 40 MG/0.4 ML SYR SC SCH (09:00)
[2016-11-10] MEDS: predniSONE 5 MG TAB PO SCH (09:03)
[2016-11-10] MEDS: ERTAPENEM 1 GM in NS 100 ML IV SCH (09:10)
[2016-11-10] MEDS ORDERED: ALBUMIN 25% 100 ML IV ONE (09:39)
[2016-11-10] MEDS ORDERED: FUROSEMIDE 40 MG/4 ML VIAL IVP ONE (09:39)
[2016-11-10] MEDS: PANTOPRAZOLE SODIUM 40 MG in NS 100 ML IV SCH ×2 (10:43→21:40)
--- NOTE | 2016-11-10 11:28 | SOAPPROG ---
EMMANUEL Progress Note Assessment/Plan: Assessment/Plan: 71 Y F Crohn's disease, s/p SBR for stricture, peritonitis. s/ p abdominal exploration with resection of remote ileocolic anastomosis, open abdomen with abthera wound vac, ileostomy. Current condition is guarded. On pressors, some weaning overnight. +pulmonary edema on CXR. Diuresing now. 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 Possible intubation today pending course. Plan for return to OR tomorrow for abdominal exploration, possible closure, possible wound vac replacement, possible ileostomy takedown. Discussed with daughter today. Seen and examined twice this am--once with Dr. Doan. S: Sleeping but arousable O: Tired, nonverbal, nodding yes and seems appropriate given current condition. diminished BS rrr abd distended with vac in place, no BS, JAS serosanguinous, ileostomy pink, mild duskiness 11/10/16 11:21 Objective: Vital Signs Temp Pulse Resp BP Pulse Ox 37.0 C 106 H 21 H 117/68 93 11/10/16 11:00 11/10/16 11:00 11/10/16 11:00 11/10/16 11:00 11/10/16 11:00 Microbiology 11/09/16 12:40 Blood Panel (PCR) - Final Blood No Organism Detected Laboratory Results 11/10/16 05:30 11/10/16 05:30 11/09/16 11/10/16 11/11/16 05:59 05:59 05:59 Intake Total 3219 3090 Output Total 475 1215 1750 Balance 2744 1875 -1750 PT 15.6 SEC (12.0-15.0) H 11/06/16 18:15 INR 1.24 (0.83-1.16) H 11/06/16 18:15 ICD10 Worksheet Patient Problems: Problems Problem Status Onset Abdominal pain Acute Acute Crohn's disease Acute Abdominal pain, chronic, right lower quadrant Acute Bronchitis Acute Crohns disease Acute Crohns disease of small intestine Acute Intra-abdominal abscess Acute Malnutrition Acute
[2016-11-10] MEDS ORDERED: HYDROmorphONE/DILAUDID 1 MG/ML SYR ONE (11:32)
[2016-11-10 13:49] LABS: POTASSIUM 3.4 mEq/L (3.5-5.2)
[2016-11-10] MEDS ORDERED: ETOMIDATE 40 MG/20 ML INJ ONE (14:13)
[2016-11-10] MEDS ORDERED: MIDAZOLAM 2 MG/2 ML VIAL ONE (14:13)
[2016-11-10] MEDS ORDERED: MIDAZOLAM 2 MG/2 ML VIAL IVP ONE (14:13)
[2016-11-10] MEDS ORDERED: ETOMIDATE 20 MG/10 ML VIAL IVP ONE (14:14)
--- NOTE | 2016-11-10 14:28 | HOSPPROG ---
Hospitalist Progress Note Assessment/Plan: 71-year-old female with PMH of Crohn's disease who is admitted with a Crohn's exacerbation, abdominal pain and underwent Lysis of adhesions for stricture, and then end to end bowel anastomosis. She is postop day 6 for the initial surgery. Yesterday returned to OR and found grossly contaminated abdominal cavity with perforation at a 2nd site in the bowel. -Sepsis with tachypnea, tachycardia, hypotension, and slightly increased hypoxemia today, Persistent. Patient currently on pressors and 100% oxygen. Surgical plan is to re-explore and perform an abdominal washout 1 or 2 more times in the next 2-3 days. - Acute respiratory failure: Patient on 100% oxygen with PA O2 of 60%. Chest x-ray shows pulmonary edema and she has been given IV Lasix along with albumin and had a good diuresis but her hypoxemia persists. Intubation is likely. -SBO, status post small-bowel resection, pod #6. POD #1 reexploration and new perforated bowel 2/2 crohns inflammation. -possible pneumonia versus atelectasis. Patient is using IS. Today she is slightly more hypoxic with abdominal pain. -leukopenia: Persistent relatively probably secondary to ongoing sepsis. - Multiple electrolyte disorders: Patient is on replacement protocol. -delirium: Resolved -DVT prophylaxis Lovenox Plan: Continue ICU and pulmonary care. Possible intubation later today for respiratory failure. Disposition: Case was discussed with Dr. Doan, Dr. Balaji Jackson in the ICU, and Radiology. X-rays were reviewed personally by myself. Subjective: Drowsy and sedated. She can be aroused. She is experiencing abdominal pain and shows clear respiratory distress. Objective: Vital Signs Temp Pulse Resp BP Pulse Ox 36.9 C 102 H 21 H 117/68 64 L 11/10/16 13:00 11/10/16 13:00 11/10/16 13:00 11/10/16 13:00 11/10/16 13:00 Microbiology 11/09/16 12:40 Blood Panel (PCR) - Final Blood No Organism Detected Laboratory Results 11/10/16 05:30 11/10/16 12:55 11/09/16 11/10/16 11/11/16 05:59 05:59 05:59 Intake Total 3219 3090 Output Total 475 1215 3390 Balance 2744 1875 -3390 PT 15.6 SEC (12.0-15.0) H 11/06/16 18:15 INR 1.24 (0.83-1.16) H 11/06/16 18:15 - Time Spent With Patient Time Spent with Patient: greater than 35 minutes Time Spent with Patient: Greater than 35 minutes spent on this patients care, greater than 50% of time spent counseling, educating, and coordinating care regarding the above mentioned plan. - Pending Discharge Pending Discharge Within 24 Hours: No Pending Discharge Within 48 Hours: No - Physical Exam Constitutional: chronically ill appearing, other ( In pain.) Eyes: PERRL, anicteric sclera Ears, Nose, Mouth, Throat: hearing normal, dry mucous membranes Cardiovascular: regular rate and rhythym, systolic murmur, tachycardia Respiratory: reduced air movement, inspiratory crackles, bronchial breath sounds , rhonchi Gastrointestinal: tenderness, guarding, other ( Ileostomy is in place. Limited stools in the bag. [address] and performing well. Surgical sites appeared to be healing well.) Genitourinary: no bladder fullness, other ( Leiva cathetr in place) Skin: warm Musculoskeletal: generalized weakness, other ( PICC line noted in the right upper extremity) Psychiatric: other ( sedated due to respiratory distress.) ICD10 Worksheet Patient Problems: Problems Problem Status Onset Bronchitis Acute Malnutrition Acute Crohns disease Acute Intra-abdominal abscess Acute Abdominal pain, chronic, right lower quadrant Acute Crohns disease of small intestine Acute Abdominal pain Acute Acute Crohn's disease Acute
[2016-11-10] MEDS ORDERED: ETOMIDATE 40 MG/20 ML INJ IVP ONE (14:30)
[2016-11-10 15:24] LABS: BASE EXCESS -2.7 mEq/L (-2.5-2.5); BICARBONATE 23 mEq/L (22-26); MEASURED OXYGEN SATURATION 95 % (92-95); PCO2 47 mmHg (34-38); PO2 82 mmHg (65-75); TCO2 24 mEq/L (23-27)
[2016-11-10 15:25] LABS: ASSIST CONTROL YES; END TIDAL CO2 55; O2 CONCENTRATIION 70 % (0-100); P/F RATIO 117 RATIO
[2016-11-10 15:26] LABS: TOTAL RATE 15
[2016-11-10] MEDS: fentaNYL 100 MCG/2 ML INJ IVP PRN ×2 (18:43→20:38)
[2016-11-10 20:33] LABS: POTASSIUM 3.5 mEq/L (3.5-5.2)
[2016-11-10] MEDS: CHLORHEXIDINE GLUCONATE 15 ML UDL PO SCH (20:46)
[2016-11-10] MEDS: FAMOTIDINE 20 MG/NACL 50 ML IV SCH (21:25)
[2016-11-10 21:28] LABS: BICARBONATE 23 mEq/L (22-26); MEASURED OXYGEN SATURATION 99 % (92-95); PCO2 39 mmHg (34-38); PO2 151 mmHg (65-75); TCO2 24 mEq/L (23-27)
[2016-11-10 21:29] LABS: ASSIST CONTROL YES
[2016-11-10 21:30] LABS: END TIDAL CO2 54; O2 CONCENTRATIION 70 % (0-100); P/F RATIO 216 RATIO; TOTAL RATE 20
[2016-11-11] MEDS: fentaNYL 100 MCG/2 ML INJ IVP PRN ×7 (01:59→22:31)
[2016-11-11 04:59] LABS: BASE EXCESS -1.6 mEq/L (-2.5-2.5); BICARBONATE 23 mEq/L (22-26); MEASURED OXYGEN SATURATION 98 % (92-95); PCO2 40 mmHg (34-38); PO2 96 mmHg (65-75); TCO2 24 mEq/L (23-27)
[2016-11-11 05:18] LABS: % IMMATURE GRANULYOCYTES 1.6 % (0.0-1.1); ABSOLUTE IMMATURE GRANULOCYTES 0.21 10^3/uL (0.00-0.10); ABSOLUTE NRBC COUNT 0.06 10^3/uL (0-0.01); ADD DIFF? NO; ADD MORPH? NO; ADD SCAN? YES; ATYPICAL LYMPHOCYTE FLAG 0 (0-99); FRAGMENT RBC FLAG 0 (0-99); HEMATOCRIT 26.1 % (38.0-47.0); HEMOGLOBIN 8.8 g/dL (12.6-16.3); LIPEMIA HEMOLYSIS FLAG 80 (0-99); MEAN CELL HEMOGLOBIN 29.5 pg (27.9-34.1); MEAN CELL HEMOGLOBIN CONCENTR. 33.7 g/dL (32.4-36.7); MEAN CELL VOLUME 87.6 fL (81.5-99.8); MEAN PLATELET VOLUME 10.6 fL (8.7-11.7); NRBC-AUTO% 0.5 % (0.0-0.2); PLATELET CLUMPS FLAG 0 (0-99); PLATELET COUNT 187 10^3/uL (150-400); RED BLOOD CELL COUNT 2.98 10^6/uL (4.18-5.33); RED CELL DISTRIBUTION WIDTH 15.9 % (11.5-15.2)
[2016-11-11 05:25] LABS: LEFT SHIFT FLG 300 (0-99)
[2016-11-11 05:30] LABS: ALANINE AMINOTRANSFERASE 41 IU/L (9-52); ALBUMIN 2.4 g/dL (3.5-5.0); ALKALINE PHOSPHATASE 74 IU/L (38-126); ANION GAP 11 mEq/L (8-16); ASPARTATE AMINOTRANSFERASE 87 IU/L (14-46); BILIRUBIN,TOTAL 2.3 mg/dL (0.1-1.4); CALCIUM 8.2 mg/dL (8.5-10.4); CARBON DIOXIDE 25 mEq/l (22-31); CHLORIDE 110 mEq/L (97-110); CREATININE 0.6 mg/dL (0.6-1.0); GLOMERULAR FILTRATION RATE > 60; GLUCOSE 91 mg/dL (70-100); MAGNESIUM 2.4 mg/dL (1.6-2.3); POTASSIUM 3.3 mEq/L (3.5-5.2); SODIUM 146 mEq/L (134-144); TOTAL PROTEIN 4.4 g/dL (6.3-8.2)
[2016-11-11 05:37] LABS: BILIRUBIN-CONJUGATED 1.7 mg/dL (0.0-0.5); BILIRUBIN-UNCONJUGATED 0.6 mg/dL (0.0-1.1)
[2016-11-11 05:54] LABS: SCAN POSITIVE
[2016-11-11 06:00] LABS: TOXIC GRANULATION PRESENT; TOXIC VACUOLIZATION PRESENT
[2016-11-11 06:01] LABS: PLATELET ESTIMATE ADEQUATE (ADEQ); POLYCHROMASIA 1+
[2016-11-11] MEDS: POTASSIUM Cl (KCl) 50 ML IV SCH ×6 (06:16→21:25)
[2016-11-11] MEDS: HYDROCORTISONE 100 MG/2 ML VIAL IVP SCH ×3 (06:17→21:31)
[2016-11-11] MEDS: PROPOFOL/EMULSION 100 ML IV SCH (06:44)
[2016-11-11] MEDS: CHLORHEXIDINE GLUCONATE 15 ML UDL PO SCH ×2 (08:03→21:24)
--- NOTE | 2016-11-11 08:35 | HOSPPROG ---
Hospitalist Progress Note Assessment/Plan: 71-year-old female with PMH of Crohn's disease who is admitted with a Crohn's exacerbation, abdominal pain and underwent Lysis of adhesions for stricture, and then end to end bowel anastomosis. She is postop day 6 for the initial surgery. Yesterday returned to OR and found grossly contaminated abdominal cavity with perforation at a 2nd site in the bowel. -Sepsis with tachypnea, tachycardia, hypotension, and slightly increased hypoxemia today, Persistent. Patient currently on pressors and 100% oxygen. Surgical plan is to re-explore and perform an abdominal washout 1 or 2 more times in the next 2-3 days. - Acute respiratory failure: Patient on 100% oxygen with PA O2 of 60%. Chest x-ray shows pulmonary edema and she has been given IV Lasix along with albumin and had a good diuresis but her hypoxemia persists. Intubation is likely. -SBO, status post small-bowel resection, pod #6. POD #1 reexploration and new perforated bowel 2/2 crohns inflammation. -possible pneumonia versus atelectasis. Patient is using IS. Today she is slightly more hypoxic with abdominal pain. -leukopenia: Persistent relatively probably secondary to ongoing sepsis. - Multiple electrolyte disorders: Patient is on replacement protocol. -delirium: Resolved -DVT prophylaxis Lovenox Plan: Continue ICU and pulmonary care. Possible intubation later today for respiratory failure. Disposition: Case was discussed with Dr. Doan, Dr. Balaji Jackson in the ICU, and Radiology. X-rays were reviewed personally by myself. Objective: Vital Signs Temp Pulse Resp BP Pulse Ox 37.4 C 96 22 H 113/68 98 11/11/16 06:00 11/11/16 08:17 11/11/16 08:17 11/11/16 06:00 11/11/16 08:17 Microbiology 11/09/16 12:40 Blood Panel (PCR) - Final Blood No Organism Detected Laboratory Results 11/11/16 05:00 11/11/16 05:00 11/10/16 11/11/16 11/12/16 05:59 05:59 05:59 Intake Total 3090 2194 Output Total 1215 5900 Balance 1875 -3706 PT 15.6 SEC (12.0-15.0) H 11/06/16 18:15 INR 1.24 (0.83-1.16) H 11/06/16 18:15 Laboratory Tests 11/06/16 11/09/16 11/09/16 18:15 04:56 10:15 WBC 1.67 L 2.18 L Hgb 12.8 11.5 L INR 1.24 H Potassium Calcium Magnesium Albumin 11/10/16 11/10/16 11/11/16 05:30 05:30 05:00 WBC 6.93 Hgb 10.1 L INR Potassium 3.3 L Calcium 7.4 L Magnesium 2.4 H Albumin 2.4 L 11/11/16 05:00 WBC 13.15 H Hgb 8.8 L INR Potassium Calcium Magnesium Albumin ICD10 Worksheet Patient Problems: Problems Problem Status Onset Bronchitis Acute Malnutrition Acute Crohns disease Acute Intra-abdominal abscess Acute Abdominal pain, chronic, right lower quadrant Acute Crohns disease of small intestine Acute Abdominal pain Acute Acute Crohn's disease Acute
[2016-11-11] MEDS ORDERED: POLYMYXIN B SULFATE 500,000 UNIT/10 ML SYR IRR ONE (08:51)
[2016-11-11] MEDS ORDERED: BUPIVACAINE 0.5% 30 ML SDV ONE (08:51)
[2016-11-11] MEDS ORDERED: BACITRACIN 50,000 UNITS/10 ML SYR IRR ONE (08:52)
--- NOTE | 2016-11-11 09:00 | SOAPPROG ---
SOAP Progress Note Assessment/Plan: Assessment: SP SB RESECTION FOR ADHESIVE STRICTURE/ PATH PENDING BUT NO OBVIOUS CROHNS AT SURGERY ABD SOFT WITH BS/ -FLATUS/ AFEBRILE, NONICTERIC CHEST CLEAR/ COR RR CONFUSED TODAY BUT PLEASANT/ DOESNT REMEMBER SURGERY/ CO A ROUGH NITE/ UO OK NEEDS MOBILIZATION Plan:AMBULATE/ ADD TORADOL/ MINIMIZE NARCS 11/06/16 11:06 11/07/16 08:36 still confused/ wound ok/ abd soft/ -flatus/ no bm/ path pending/ cxr basilar atelectasis/ wbc2.7k/ mobilize 11/09/16 13:54 DRAMATIC CHANGE TODAY/ MARKEDLY DISTENDED WITH ACTIVE BS/ MINIMAL FLATUS/ AFEBRILE/ WBC 2.6K WILL CHECK CT AND MOVE TO ICU 11/09/16 17:29 ct shows some free air and lots of ascites/ requiring pressors for bp/ uo diminished/ abd distended and tender risks and options fully discussed with pt and family who wish to proceed with urgent laparotomy 11/11/16 08:58 STABLE ON PEEP AT 10/ CXR BILATERAL FLUFFINESS/ WOUND OK/ LOW GRADE TEMP/ UO MASSIVE WITH DIURESIS/ ABD GOOD/ HCT 26 WOUND VAC CHANGE TODAY/ CONSIDER WOUND FASCIAL CLOSURE Objective: Vital Signs Temp Pulse Resp BP Pulse Ox 37.4 C 96 22 H 113/68 98 11/11/16 06:00 11/11/16 08:17 11/11/16 08:17 11/11/16 06:00 11/11/16 08:17 Microbiology 11/09/16 12:40 Blood Panel (PCR) - Final Blood No Organism Detected Laboratory Results 11/11/16 05:00 11/11/16 05:00 11/10/16 11/11/16 11/12/16 05:59 05:59 05:59 Intake Total 3090 2194 Output Total 1215 5900 Balance 1875 -3706 PT 15.6 SEC (12.0-15.0) H 11/06/16 18:15 INR 1.24 (0.83-1.16) H 11/06/16 18:15 ICD10 Worksheet Patient Problems: Problems Problem Status Onset Abdominal pain Acute Acute Crohn's disease Acute Abdominal pain, chronic, right lower quadrant Acute Bronchitis Acute Crohns disease Acute Crohns disease of small intestine Acute Intra-abdominal abscess Acute Malnutrition Acute
[2016-11-11] MEDS ORDERED: HYDROmorphONE/DILAUDID 2 MG/ML INJ ONE (10:03)
[2016-11-11] MEDS ORDERED: DEXAMETHASONE 4 MG/ML VIAL ONE (10:17)
[2016-11-11] MEDS ORDERED: ONDANSETRON 4 MG/2 ML VIAL ONE (10:17)
[2016-11-11] MEDS ORDERED: ROCURONIUM 50 MG/5 ML VIAL ONE (10:17)
[2016-11-11] MEDS: PANTOPRAZOLE SODIUM 40 MG in NS 100 ML IV SCH ×2 (11:30→21:31)
[2016-11-11] MEDS: ERTAPENEM 1 GM in NS 100 ML IV SCH (11:30)
[2016-11-11] MEDS: FAMOTIDINE 20 MG/NACL 50 ML IV SCH ×2 (11:30→21:31)
[2016-11-11 12:27] LABS: POTASSIUM 3.5 mEq/L (3.5-5.2)
--- NOTE | 2016-11-11 12:33 | SOAPPROG ---
SOAP Progress Note Assessment/Plan: Assessment: SP SB RESECTION FOR ADHESIVE STRICTURE/ PATH PENDING BUT NO OBVIOUS CROHNS AT SURGERY ABD SOFT WITH BS/ -FLATUS/ AFEBRILE, NONICTERIC CHEST CLEAR/ COR RR CONFUSED TODAY BUT PLEASANT/ DOESNT REMEMBER SURGERY/ CO A ROUGH NITE/ UO OK NEEDS MOBILIZATION Plan:AMBULATE/ ADD TORADOL/ MINIMIZE NARCS 11/06/16 11:06 11/07/16 08:36 still confused/ wound ok/ abd soft/ -flatus/ no bm/ path pending/ cxr basilar atelectasis/ wbc2.7k/ mobilize 11/09/16 13:54 DRAMATIC CHANGE TODAY/ MARKEDLY DISTENDED WITH ACTIVE BS/ MINIMAL FLATUS/ AFEBRILE/ WBC 2.6K WILL CHECK CT AND MOVE TO ICU 11/09/16 17:29 ct shows some free air and lots of ascites/ requiring pressors for bp/ uo diminished/ abd distended and tender risks and options fully discussed with pt and family who wish to proceed with urgent laparotomy 11/11/16 08:58 STABLE ON PEEP AT 10/ CXR BILATERAL FLUFFINESS/ WOUND OK/ LOW GRADE TEMP/ UO MASSIVE WITH DIURESIS/ ABD GOOD/ HCT 26 WOUND VAC CHANGE TODAY/ CONSIDER WOUND FASCIAL CLOSURE 11/11/16 12:31 PATIENT SEEN EARLIER TODAY. AFEBRILE AND STABLE VITAL SIGNS. PLAN IS A WOUND VAC CHANGE IN THE OR. RISKS AND OPTIONS FULLY DISCUSSED WITH THE DAUGHTER WISHES TO PROCEED Objective: Vital Signs Temp Pulse Resp BP Pulse Ox 37.4 C 96 22 H 113/68 98 11/11/16 06:00 11/11/16 08:17 11/11/16 08:17 11/11/16 06:00 11/11/16 08:17 Microbiology 11/09/16 12:40 Blood Panel (PCR) - Final Blood No Organism Detected Laboratory Results 11/11/16 05:00 11/11/16 12:00 11/10/16 11/11/16 11/12/16 05:59 05:59 05:59 Intake Total 3090 2194 Output Total 1215 5900 Balance 1875 -3706 PT 15.6 SEC (12.0-15.0) H 11/06/16 18:15 INR 1.24 (0.83-1.16) H 11/06/16 18:15 ICD10 Worksheet Patient Problems: Problems Problem Status Onset Abdominal pain Acute Acute Crohn's disease Acute Abdominal pain, chronic, right lower quadrant Acute Bronchitis Acute Crohns disease Acute Crohns disease of small intestine Acute Intra-abdominal abscess Acute Malnutrition Acute
--- NOTE | 2016-11-11 12:35 | POSTOPPROG ---
Post Op Note Date of Operation: 11/11/16 Surgeon: Denis Doan Vacuum Drier Operator: CORINE Anesthesiologist: AVA Anesthesia: GET(General Endotracheal) Pre-op Diagnosis: PERITONITIS AND OPEN ABDOMEN Post-op Diagnosis: SAME Procedure: EXPLORATORY LAPAROTOMY WITH PERITONEAL LAVAGE AND WOUND VAC CHANGE Findings: STILL SOME PURULENT COLLECTIONS IN INTERLOOP ABSCESSES BOWEL IS QUITE VIAB Inf/Abcess present in the surg proc area at time of surgery?: Yes Depth: Organ Space EBL: Minimal Complications: NONE Drains: Wound Vac
[2016-11-11] MEDS: ENOXAPARIN 40 MG/0.4 ML SYR SC SCH (13:49)
--- NOTE | 2016-11-11 16:33 | PDINTPN ---
Apprentice/Lineman Progress Note Assessment/Plan: Assessment/plan: 71 F with Crohns disease admitted 10/30/16 with abdominal pain and eventually underwent SB resection/SUHAIL on 11/04 who developed an acute abdomen on 11/09 requiring emergent surgery. She had a perforated bowel with peritonitis and returned to the ICU extubated but tenuous. She continued to have respiratory distress and her CXR showed diffuse bilateral infiltrates. An attempt at diuresis was unsuccessful and she was re-intubated 11/10/16. * Peritonitis 2/2 bowel perforation at an old anastamosis site (separate from her recent surgery). She is on broad spectrum abx with a drop in WBC but will return to the OR today (and tomorrow?) for additional wash out. FU cultures and continue to titrate pressors * Septic shock 2/2 above. Following sepsis protocol. * Respiratory failure- source not clear at the moment. Differential includes volume overload/pulmonary edema, aspiration pneumonitis or asp PNA, versus ARDS from septic shock. Her PAP are low and she is responding well to PEEP. Checking BNP today and will consider diuretic though I am concerned about losses from OR. Since additional surgeyr is required tomorrow, anticipate she will remain intubated after OR. * Anemia- HCT is 24 but no signs of bleeding and improved BP overall. Follow * * * critical care 40 minutes Objective: Vital Signs Temp Pulse Resp BP Pulse Ox 37.3 C 89 20 91/53 L 96 11/11/16 16:00 11/11/16 16:00 11/11/16 16:00 11/11/16 16:00 11/11/16 16:00 Microbiology 11/09/16 12:40 Blood Panel (PCR) - Final Blood No Organism Detected Laboratory Results 11/11/16 05:00 11/11/16 12:00 11/10/16 11/11/16 11/12/16 05:59 05:59 05:59 Intake Total 3090 2194 Output Total 1215 5900 Balance 1875 -3706 PT 15.6 SEC (12.0-15.0) H 11/06/16 18:15 INR 1.24 (0.83-1.16) H 11/06/16 18:15 Physical Exam - Physical Exam General Appearance: other (sedated) EENT: PERRL/EOMI Neck: supple Respiratory: lungs clear, decreased breath sounds, No respiratory distress Cardiac/Chest: regular rate, rhythm, No edema Abdomen: non-tender, soft, No distended Skin: warm/dry Lymphatic: no adenopathy Neuro/Psych: cognition abnormalities ICD10 Worksheet Patient Problems: Problems Problem Status Onset Abdominal pain Acute Acute Crohn's disease Acute Abdominal pain, chronic, right lower quadrant Acute Bronchitis Acute Crohns disease Acute Crohns disease of small intestine Acute Intra-abdominal abscess Acute Malnutrition Acute
--- NOTE | 2016-11-11 16:34 | HOSPPROG ---
Hospitalist Progress Note Assessment/Plan: 71-year-old female with PMH of Crohn's disease who is admitted with a Crohn's exacerbation, abdominal pain and underwent Lysis of adhesions for stricture, and then end to end bowel anastomosis. 11/11 is postop day number 1 from an abdominal washout post abdominal abscess and viscus rupture with a perineal soiling. Today she had peritoneal washout. -Sepsis with tachypnea, tachycardia, hypotension, and slightly increased hypoxemia today, Persistent. Patient currently on pressors and requires ventilator support. She is sedated on Diprivan. - Acute respiratory failure: Chest x-ray shows pulmonary edema and she has been given IV Lasix along with albumin and had a good diuresis but her hypoxemia persists. Patient currently intubated. -SBO, status post small-bowel resection, pod #6. POD #2 reexploration and new perforated bowel 2/2 crohns inflammation. Today, 11/12 she returned to the OR for abdominal peritoneal washout. -possible pneumonia versus atelectasis. Patient is using IS. Today she is slightly more hypoxic with abdominal pain. -leukocytosis secondary to sepsis. - multiple little like disorders being repleted. -DVT prophylaxis Lovenox Plan: Continue ICU and pulmonary care. Disposition: Case was discussed with Dr. Doan, Dr. Balaji Jackson in the ICU, and Radiology. X-rays were reviewed personally by myself. Subjective: Sedated on ventilation. Objective: Vital Signs Temp Pulse Resp BP Pulse Ox 37.3 C 89 20 91/53 L 96 11/11/16 16:00 11/11/16 16:00 11/11/16 16:00 11/11/16 16:00 11/11/16 16:00 Microbiology 11/09/16 12:40 Blood Panel (PCR) - Final Blood No Organism Detected Laboratory Results 11/11/16 05:00 11/11/16 12:00 11/10/16 11/11/16 11/12/16 05:59 05:59 05:59 Intake Total 3090 2194 Output Total 1215 5900 Balance 1875 -3706 PT 15.6 SEC (12.0-15.0) H 11/06/16 18:15 INR 1.24 (0.83-1.16) H 11/06/16 18:15 - Time Spent With Patient Time Spent with Patient: greater than 35 minutes Time Spent with Patient: Greater than 35 minutes spent on this patients care, greater than 50% of time spent counseling, educating, and coordinating care regarding the above mentioned plan. - Pending Discharge Pending Discharge Within 24 Hours: No Pending Discharge Within 48 Hours: No - Physical Exam Constitutional: chronically ill appearing, other (Acutely ill.) Eyes: PERRL, other (Pinpoint pupils secondary to medication) Ears, Nose, Mouth, Throat: other (Intubated) Cardiovascular: regular rate and rhythym, no murmur, rub, or gallop Respiratory: rhonchi, other (Patient is intubated and sedated on Diprivan.) Gastrointestinal: other (Surgical wound noted and healing without erythema. A VAC pack is in place along with a JAS drain. No bowel sounds heard) Genitourinary: no bladder fullness Skin: warm Neurologic: other (Sedated on mechanical ventilation) ICD10 Worksheet Patient Problems: Problems Problem Status Onset Bronchitis Acute Malnutrition Acute Crohns disease Acute Intra-abdominal abscess Acute Abdominal pain, chronic, right lower quadrant Acute Crohns disease of small intestine Acute Abdominal pain Acute Acute Crohn's disease Acute
[2016-11-12 00:57] LABS: POTASSIUM 3.8 mEq/L (3.5-5.2)
[2016-11-12] MEDS ORDERED: POTASSIUM Cl (KCl) 50 ML IV ONE (01:05)
[2016-11-12] MEDS: NOREPINEPHRINE/NS 500 ML IV SCH ×2 (01:45→14:56)
[2016-11-12] MEDS: fentaNYL 100 MCG/2 ML INJ IVP PRN ×5 (04:00→14:56)
[2016-11-12 04:19] LABS: ABSOLUTE NRBC COUNT 0.09 10^3/uL (0-0.01); ADD DIFF? YES; ADD MORPH? NO; ASSIST CONTROL YES; ATYPICAL LYMPHOCYTE FLAG 30 (0-99); BASE EXCESS 0.5 mEq/L (-2.5-2.5); BICARBONATE 25 mEq/L (22-26); FRAGMENT RBC FLAG 0 (0-99); HEMATOCRIT 25.8 % (38.0-47.0); HEMOGLOBIN 8.6 g/dL (12.6-16.3); LIPEMIA HEMOLYSIS FLAG 80 (0-99); MEAN CELL HEMOGLOBIN 29.8 pg (27.9-34.1); MEAN CELL HEMOGLOBIN CONCENTR. 33.3 g/dL (32.4-36.7); MEAN CELL VOLUME 89.3 fL (81.5-99.8); MEAN PLATELET VOLUME 11.1 fL (8.7-11.7); MEASURED OXYGEN SATURATION 97 % (92-95); NRBC-AUTO% 0.5 % (0.0-0.2); PCO2 45 mmHg (34-38); PLATELET CLUMPS FLAG 0 (0-99); PLATELET COUNT 168 10^3/uL (150-400); PO2 94 mmHg (65-75); RED BLOOD CELL COUNT 2.89 10^6/uL (4.18-5.33); RED CELL DISTRIBUTION WIDTH 16.6 % (11.5-15.2); TCO2 27 mEq/L (23-27)
[2016-11-12 04:20] LABS: O2 CONCENTRATIION 40 % (0-100); P/F RATIO 235 RATIO
[2016-11-12 04:21] LABS: END TIDAL CO2 54; TOTAL RATE 40
[2016-11-12 04:30] LABS: ALANINE AMINOTRANSFERASE 42 IU/L (9-52); ALBUMIN 2.3 g/dL (3.5-5.0); ALKALINE PHOSPHATASE 94 IU/L (38-126); ANION GAP 6 mEq/L (8-16); ASPARTATE AMINOTRANSFERASE 105 IU/L (14-46); BILIRUBIN,TOTAL 1.7 mg/dL (0.1-1.4); CALCIUM 7.9 mg/dL (8.5-10.4); CARBON DIOXIDE 26 mEq/l (22-31); CHLORIDE 115 mEq/L (97-110); CREATININE 0.5 mg/dL (0.6-1.0); GLOMERULAR FILTRATION RATE > 60; GLUCOSE 122 mg/dL (70-100); LEFT SHIFT FLG 300 (0-99); MAGNESIUM 2.1 mg/dL (1.6-2.3); SODIUM 147 mEq/L (134-144); TOTAL PROTEIN 4.4 g/dL (6.3-8.2)
[2016-11-12 04:31] LABS: ADD SCAN? NO
[2016-11-12] MEDS: LORazepam 2 MG/ML INJ IVP PRN (05:23)
[2016-11-12 05:33] LABS: POLYCHROMASIA 1+
[2016-11-12 05:35] LABS: PLATELET ESTIMATE ADEQUATE (ADEQ); TOXIC GRANULATION PRESENT
[2016-11-12 05:36] LABS: TOXIC VACUOLIZATION PRESENT
[2016-11-12] MEDS: HYDROCORTISONE 100 MG/2 ML VIAL IVP SCH ×2 (06:20→14:43)
--- NOTE | 2016-11-12 06:40 | GOP ---
[f rep st] OPERATIVE REPORT DATE OF OPERATION: 11/11/2016 SURGEON: Denis Doan MD BAT CARRIER: CHHAYA Wayne. ANESTHESIOLOGIST: . PREOPERATIVE DIAGNOSIS: Peritonitis and open abdomen. POSTOPERATIVE DIAGNOSIS: Peritonitis and open abdomen. PROCEDURE PERFORMED: Laparotomy with peritoneal lavage and re-placement of an intraabdominal wound VAC. FINDINGS: The patient was found to have still pockets of cloudy peritoneal fluid and fibrinous exud ate around the bowels. The bowels all appeared to be viable, and the ostomy itself was viable. DESCRIPTION OF PROCEDURE: The patient was taken to the operating room where she received satisfacto ry general endotracheal anesthesia by . She was placed in supine position. Wound VAC was discontinued, and she was prepped and draped in the usual sterile fashion. The ABThera was the n removed from the abdomen, and adhesions were broken down, and all pockets were copiously irrigated . Fibrinous debris was removed as much as easily possible. There were no major collections of puru lent material but more thin watery interloop collections. These were all irrigated clear. It was f elt that there was still too much contamination for wound closure. ABThera was replaced in the abdo men, and the skin and fascia were approximated with 2 separate 0 PDS sutures. A wound VAC was then connected to the blue foam over the ABThera and appeared to function well. It was connected to the wound VAC. She tolerated the procedure well. She was taken to the recovery room in good condition. There were no complications. /[id number]/MODL
[2016-11-12] MEDS: FAMOTIDINE 20 MG/NACL 50 ML IV SCH (10:22)
[2016-11-12] MEDS: PANTOPRAZOLE SODIUM 40 MG in NS 100 ML IV SCH ×2 (10:22→22:56)
[2016-11-12] MEDS: ENOXAPARIN 40 MG/0.4 ML SYR SC SCH (10:22)
[2016-11-12] MEDS: CHLORHEXIDINE GLUCONATE 15 ML UDL PO SCH ×2 (10:22→20:31)
[2016-11-12] MEDS: ERTAPENEM 1 GM in NS 100 ML IV SCH (10:22)
[2016-11-12] MEDS ORDERED: D5W 1/2 NS W/ 10 KCl/L 1,000 ML IV SCH (15:15)
[2016-11-12 15:16] LABS: POTASSIUM 3.7 mEq/L (3.5-5.2)
--- NOTE | 2016-11-12 15:56 | SOAPPROG ---
SOAP Progress Note Assessment/Plan: Assessment: 71yo F with Crohn's admitted with abdominal pain S/p ex lap with small bowel resection - pathology without overt evidence of crohns. S/p ex lap with small bowel resection for perforation at old anastomosis Back to OR in am with Dr. Doan for washout and possible closure of fascia Neuro/resp: sedated on vent CV: hypotension on norepi GI: NG. tube feeds. ileostomy with stool in appliance. : au for accurate I&Os JAS drain to suction Ab-thera to suction IV invanz - add fluconazole. ID consult Additionally seen by Dr. Doan S: intubated and sedated O: laying in bed, intubated and sedated NG tube CTAB anteriorly RRR Hypoactive bs, distended, does not grimace to palpation. ileostomy pink with good profile, thin liquid stool in bag WV to suction JAS serosanguinous Clear yellow urine in bag SCDs in place 11/12/16 16:25 Objective: Vital Signs Temp Pulse Resp BP Pulse Ox 37.8 C 112 H 20 140/75 H 97 11/12/16 14:00 11/12/16 14:56 11/12/16 14:00 11/12/16 14:56 11/12/16 14:00 Microbiology 11/09/16 12:40 Blood Panel (PCR) - Final Blood No Organism Detected 11/06/16 18:25 Blood Culture - Final Blood 11/06/16 18:15 Blood Culture - Final Blood Laboratory Results 11/12/16 04:00 11/12/16 13:56 11/11/16 11/12/16 11/13/16 05:59 05:59 05:59 Intake Total 2194 2456 Output Total 5900 1660 350 Balance -3706 796 -350 PT 15.6 SEC (12.0-15.0) H 11/06/16 18:15 INR 1.24 (0.83-1.16) H 11/06/16 18:15 ICD10 Worksheet Patient Problems: Problems Problem Status Onset Abdominal pain Acute Acute Crohn's disease Acute Abdominal pain, chronic, right lower quadrant Acute Bronchitis Acute Crohns disease Acute Crohns disease of small intestine Acute Intra-abdominal abscess Acute Malnutrition Acute
[2016-11-12] MEDS: fentaNYL/NACL 100 ML IV SCH (15:57)
--- NOTE | 2016-11-12 16:14 | HOSPPROG ---
Hospitalist Progress Note Assessment/Plan: 71-year-old female with PMH of Crohn's disease who is admitted with a Crohn's exacerbation, abdominal pain and underwent Lysis of adhesions for stricture, and then end to end bowel anastomosis. 11/11 is postop day number 1 from an abdominal washout post abdominal abscess and viscus rupture with a perineal soiling. Today she had peritoneal washout. -Sepsis with tachypnea, tachycardia, hypotension, and slightly increased hypoxemia today, Persistent. Patient currently on pressors and requires ventilator support. She is sedated on Diprivan. - Acute respiratory failure: Chest x-ray shows pulmonary edema and she has been given IV Lasix along with albumin and had a good diuresis but her hypoxemia persists. Patient currently intubated. -SBO, status post small-bowel resection, pod #6. POD #2 reexploration and new perforated bowel 2/2 crohns inflammation. Today, 11/12 she returned to the OR for abdominal peritoneal washout. -possible pneumonia versus atelectasis. Patient is using IS. Today she is slightly more hypoxic with abdominal pain. -leukocytosis secondary to sepsis. - multiple little like disorders being repleted. -DVT prophylaxis Lovenox Plan: Continue ICU and pulmonary care. Disposition: Case was discussed with Dr. Doan, Dr. Balaji Jackson in the ICU, and Radiology. X-rays were reviewed personally by myself. Objective: Vital Signs Temp Pulse Resp BP Pulse Ox 37.8 C 112 H 20 140/75 H 97 11/12/16 14:00 11/12/16 14:56 11/12/16 14:00 11/12/16 14:56 11/12/16 14:00 Microbiology 11/09/16 12:40 Blood Panel (PCR) - Final Blood No Organism Detected 11/06/16 18:25 Blood Culture - Final Blood 11/06/16 18:15 Blood Culture - Final Blood Laboratory Results 11/12/16 04:00 11/12/16 13:56 11/11/16 11/12/16 11/13/16 05:59 05:59 05:59 Intake Total 2194 2456 Output Total 5900 1660 350 Balance -3706 796 -350 PT 15.6 SEC (12.0-15.0) H 11/06/16 18:15 INR 1.24 (0.83-1.16) H 11/06/16 18:15 - Time Spent With Patient Time Spent with Patient: greater than 35 minutes Time Spent with Patient: Greater than 35 minutes spent on this patients care, greater than 50% of time spent counseling, educating, and coordinating care regarding the above mentioned plan. - Pending Discharge Pending Discharge Within 24 Hours: No Pending Discharge Within 48 Hours: No - Physical Exam Constitutional: chronically ill appearing Eyes: PERRL Ears, Nose, Mouth, Throat: moist mucous membranes Cardiovascular: regular rate and rhythym, no murmur, rub, or gallop Respiratory: no respiratory distress, inspiratory crackles, bronchial breath sounds (No bowel sounds. Open abdominal wound. No signs of surface cellulitis for inflammation. Wound VAC is in place. JAS drain in place.), rhonchi Gastrointestinal: other Genitourinary: au in urethra Skin: warm Musculoskeletal: other Psychiatric: other (Intubated and sedated on a ventilator) ICD10 Worksheet Patient Problems: Problems Problem Status Onset Abdominal pain Acute Acute Crohn's disease Acute Abdominal pain, chronic, right lower quadrant Acute Bronchitis Acute Crohns disease Acute Crohns disease of small intestine Acute Intra-abdominal abscess Acute Malnutrition Acute
--- NOTE | 2016-11-12 17:01 | PDINTPN ---
Stereotyper Progress Note Assessment/Plan: Assessment/plan: 71 F with Crohns disease admitted 10/30/16 with abdominal pain and eventually underwent SB resection/SUHAIL on 11/04 who developed an acute abdomen on 11/09 requiring emergent surgery. She had a perforated bowel with peritonitis and returned to the ICU extubated but tenuous. She continued to have respiratory distress and her CXR showed diffuse bilateral infiltrates. An attempt at diuresis was unsuccessful and she was re-intubated 11/10/16. * Peritonitis 2/2 bowel perforation at an old anastamosis site (separate from her recent surgery). She is on broad spectrum abx and cultures are growing C ramosum. Her rising WBC may be from her stress dose steroids, which I hope to taper quickly once her abdomen is closed. * Septic shock 2/2 above. She is on smaller doses of levophed with a MAP of 70 at the moment. * Respiratory failure- source not clear at the moment. Differential includes volume overload/pulmonary edema, aspiration pneumonitis or asp PNA, versus ARDS from septic shock. Her PAP are low and she is responding well to PEEP. Stable from this perspective. Hopefully wean towards extubation in next 1-2 days * Anemia- Hct continues to trickle down and RN reports heme positive stool in ileostomy. Recheck H/H now, dc lovenox and use SCDs for prophylaxis. * * critical care 40 minutes 11/12/16 16:52 Objective: Vital Signs Temp Pulse Resp BP Pulse Ox 37.8 C 115 H 20 140/75 H 98 11/12/16 14:00 11/12/16 16:39 11/12/16 16:39 11/12/16 14:56 11/12/16 16:39 Microbiology 11/09/16 12:40 Blood Panel (PCR) - Final Blood No Organism Detected 11/06/16 18:25 Blood Culture - Final Blood 11/06/16 18:15 Blood Culture - Final Blood Laboratory Results 11/12/16 04:00 11/12/16 13:56 11/11/16 11/12/16 11/13/16 05:59 05:59 05:59 Intake Total 2194 2456 Output Total 5900 1660 350 Balance -3706 796 -350 PT 15.6 SEC (12.0-15.0) H 11/06/16 18:15 INR 1.24 (0.83-1.16) H 11/06/16 18:15 Physical Exam - Physical Exam General Appearance: no apparent distress, other (sedated) EENT: PERRL/EOMI Neck: supple Respiratory: lungs clear, normal breath sounds, No respiratory distress Cardiac/Chest: regular rate, rhythm, No edema Abdomen: soft, No distended Skin: normal color, warm/dry, No cyanosis Lymphatic: no adenopathy Extremities: No pedal edema ICD10 Worksheet Patient Problems: Problems Problem Status Onset Abdominal pain Acute Acute Crohn's disease Acute Abdominal pain, chronic, right lower quadrant Acute Bronchitis Acute Crohns disease Acute Crohns disease of small intestine Acute Intra-abdominal abscess Acute Malnutrition Acute
[2016-11-12 17:08] LABS: HEMATOCRIT 23.7 % (38.0-47.0); HEMOGLOBIN 7.9 g/dL (12.6-16.3); MEAN CELL HEMOGLOBIN 29.6 pg (27.9-34.1); MEAN CELL HEMOGLOBIN CONCENTR. 33.3 g/dL (32.4-36.7); MEAN CELL VOLUME 88.8 fL (81.5-99.8); RED BLOOD CELL COUNT 2.67 10^6/uL (4.18-5.33); RED CELL DISTRIBUTION WIDTH 16.6 % (11.5-15.2)
[2016-11-12] MEDS: POTASSIUM Cl (KCl) 100 ML IV SCH ×2 (17:08→18:15)
[2016-11-12] MEDS: PROPOFOL/EMULSION 100 ML IV SCH (17:09)
[2016-11-12] MEDS ORDERED: FUROSEMIDE 20 MG/2 ML VIAL IVP ONE (18:30)
--- NOTE | 2016-11-12 22:39 | GCON ---
[f rep st] CONSULTATION INFECTIOUS DISEASE CONSULTATION REFERRING PHYSICIAN: Denis Doan MD REASON FOR REFERRAL: Sepsis, bacteremia, peritonitis. HISTORY OF PRESENT ILLNESS: Patient is a 71-year-old female, with known underlying Crohn disease, w charlie was admitted to [facility] on 11/02/2016 after presenting to the emergency room wit h abdominal pain. Patient showed initially a 10 cm segment of small bowel which was thickened. Patie nt was in severe discomfort. Patient desired to have surgery for resection of the thickened area of small bowel. She has had numerous small bowel resections prior for Crohn disease flares. She underwe nt this procedure on 11/04/2016. She had lysis of adhesions with small bowel resection. Patient was covered appropriately perioperatively with antibiotic coverage for bowel azam; however, 4 days afte r surgery, patient started having hypotension, and a repeat abdominal CT showed free air, stranding, and fluid collections suspicious for breakdown of the anastomosis. Patient underwent surgery on the evening of 11/09/2016, where she underwent ileocolic resection with end ileostomy and peritoneal la vage. Since then, she has been intubated and on pressors. Currently, she is in the ICU on a low amou nt of pressors and remains intubated. She is covered with ertapenem monotherapy. She has not been fe brile. Blood cultures sent on 11/09/2016 are growing Clostridium ramosum. We are consulted to help d etermine the appropriate agent and duration of coverage. PAST MEDICAL HISTORY: 1. Crohn disease. 2. Chronic back pain. 3. Depression with anxiety. PAST SURGICAL HISTORY: 1. Status post cervical fusion. 2. Status post breast augmentation. 3. Status post tubal ligation. 4. Status post multiple bowel resections and lysis of adhesions. ANTIBIOTICS: Ertapenem. ALLERGIES: Patient is allergic to fentanyl, gabapentin, penicillins, sulfa, morphine, tramadol, Imu ran, budesonide, Remicade, and Pentasa. SOCIAL HISTORY: Patient denies any significant tobacco or alcohol use. FAMILY HISTORY: Noncontributory. REVIEW OF SYSTEMS: Unable to obtain secondary to patient's intubated status. PHYSICAL EXAMINATION: VITAL SIGNS: Temperature maximum is 37.8 and temperature current is 37.6, hea rt rate is 107, respiratory rate is 20, blood pressure is 117/63. GENERAL: Patient is a well-formed, thin-appearing older female. She is not alert. She is intubated and sedated. HEENT: Normocephalic f or age. Atraumatic. No scleral icterus. No oral lesion. ET tube in place. LUNGS: Clear to auscultati on with decreased breath sounds in the bases bilaterally. Mechanical effort. HEART: Tachycardic with a regular rhythm. The patient has 2+ bilateral pedal edema. ABDOMEN: Soft. Postoperative. The patie nt has an enterotomy with melenic-appearing stool in it. The patient also has an NG tube which is dr barrientos possibly melenic-appearing fluid, as well. MUSCULOSKELETAL: No muscle belly tenderness is not ed. No joint line effusion or arthritis is seen. LABORATORY DATA: Patient has a CBC dated 11/12/2016 that shows a white blood cell count of 16.5, he moglobin of 8.6, hematocrit of 25.8, and platelet count of 168. Differential shows left shifting wit h 57% segmented neutrophils and 37% band forms. Serum chemistries on 11/12/2016 show sodium of 147, potassium of 4.0, chloride of 115, bicarbonate of 26, BUN of 29, and creatinine is 0.5. AST is 105, ALT is 42. C diff toxin PCR is negative. MICROBIOLOGIC DATA: Patient's blood cultures dated 11/03 and 11/06 are negative. Blood culture date d 11/09/2016 is growing Clostridium ramosum. ASSESSMENT: Clostridial bacteremia secondary to small-bowel breakdown of anastomosis, peritonitis, and sepsis. Clostridium ramosum is a common anaerobe present in most humans' colon and small bowel. It is uncommonly a pathogen, but when it is, it is usually in children with chronic ear infections a nd older adults who are immunocompromised. Clearly, this patient falls in the latter group. Zoraida haines, this is not a highly resistant organism. The ertapenem monotherapy should be covering adequatel y. We will continue to watch blood cultures for other growth. By tracking her vitals and pressor use , it appears that she is improving clinically. At this point, no additional changes will be made. PLAN: 1. Continue ertapenem daily. 2. Follow blood cultures and weaning from pressors, as well as respiratory status. /[id number]/MODL
--- NOTE | 2016-11-12 23:04 | GPROG ---
[f rep st] PROGRESS NOTE INTERIM SUMMARY DATE OF SERVICE: 11/12/2016 ACUTE DIAGNOSES: 1. Acute sepsis with tachypnea, tachycardia, hypotension, and hypoxemia, requiring ventilator suppo rt and pressors, currently in the ICU. 2. Severe peritonitis secondary to ruptured viscus. Patient is status post lysis of adhesions x2. 3. Acute respiratory failure secondary to sepsis. 4. Small bowel obstruction secondary to adhesions secondary to Crohn disease. 5. Crohn disease for many years. 6. Severe protein-calorie malnutrition with an albumin of 2.3. CONSULTATIONS: General Surgery, Intensive Care Medicine. PROCEDURES: 11/[address] Yee, a laparoscopic lysis of adhesions and open small bowel resection, a nd another procedure on 11/[address] Doan was a laparotomy with extensive lysis of adhesions, ileoc olic resection with end ileostomy, peritoneal lavage, and drainage of a perineal abscess. Note that on the second procedure the patient had a new breakdown of a prior, prior to this admission and pro cedure, ileocolic anastomosis. This prior anastomosis experienced breakdown and subsequent peritoni tis. HOSPITAL COURSE: This is a 71-year-old female with a known history of Crohn disease and previous sm all bowel obstruction and prior lysis of adhesions, who presented with a small bowel obstruction. I t was unable to be relieved and on 11/05 she underwent a lysis of adhesions successfully. She had b een doing well and then on 11/09 she developed acute sepsis, was found to have acute and severe christiano tonitis, and underwent a second laparotomy lysis of adhesions and an ileostomy was made along with p eritoneal lavage. She has since undergone [address] Doan and continues on the ve ntilator in respiratory failure and in persistent sepsis. She is requiring mechanical ventilation, pressors for blood pressure support, and significant electrolyte management. Given the prolonged nature of the lady's illness, her nutrition should be addressed. This possibly needs to occur by TPN. Nutritional needs need to be met soon. Goals at this time are for perhaps a third abdominal wash out, ventilator and cardiovascular support . The patient is a full code. /[id number]/MODL
[2016-11-12] MEDS ORDERED: FUROSEMIDE 20 MG/2 ML VIAL ONE (23:30)
[2016-11-13] MEDS: POTASSIUM Cl (KCl) 50 ML IV SCH ×3 (01:52→03:00)
[2016-11-13] MEDS: fentaNYL/NACL 100 ML IV SCH ×2 (02:30→19:38)
[2016-11-13 04:31] LABS: BASE EXCESS 6.1 mEq/L (-2.5-2.5); BICARBONATE 31 mEq/L (22-26); MEASURED OXYGEN SATURATION 97 % (92-95); PCO2 46 mmHg (34-38); PO2 86 mmHg (65-75); TCO2 32 mEq/L (23-27)
[2016-11-13 04:33] LABS: ASSIST CONTROL YES; END TIDAL CO2 50; O2 CONCENTRATIION 40 % (0-100); P/F RATIO 215 RATIO; TOTAL RATE 20
[2016-11-13 04:44] LABS: ABSOLUTE NRBC COUNT 0.12 10^3/uL (0-0.01); ADD DIFF? YES; ADD MORPH? NO; FRAGMENT RBC FLAG 0 (0-99); HEMATOCRIT 30.8 % (38.0-47.0); HEMOGLOBIN 10.7 g/dL (12.6-16.3); LIPEMIA HEMOLYSIS FLAG 90 (0-99); MEAN CELL HEMOGLOBIN 29.8 pg (27.9-34.1); MEAN CELL HEMOGLOBIN CONCENTR. 34.7 g/dL (32.4-36.7); MEAN CELL VOLUME 85.8 fL (81.5-99.8); MEAN PLATELET VOLUME 11.3 fL (8.7-11.7); NRBC-AUTO% 0.9 % (0.0-0.2); PLATELET CLUMPS FLAG 0 (0-99); PLATELET COUNT 150 10^3/uL (150-400); RED BLOOD CELL COUNT 3.59 10^6/uL (4.18-5.33); RED CELL DISTRIBUTION WIDTH 16.4 % (11.5-15.2)
[2016-11-13 04:49] LABS: ADD SCAN? NO; ATYPICAL LYMPHOCYTE FLAG 130 (0-99); LEFT SHIFT FLG 170 (0-99)
[2016-11-13 05:04] LABS: ALANINE AMINOTRANSFERASE 46 IU/L (9-52); ALBUMIN 2.3 g/dL (3.5-5.0); ALKALINE PHOSPHATASE 92 IU/L (38-126); ANION GAP 5 mEq/L (8-16); ASPARTATE AMINOTRANSFERASE 94 IU/L (14-46); BILIRUBIN,TOTAL 1.6 mg/dL (0.1-1.4); CALCIUM 7.4 mg/dL (8.5-10.4); CARBON DIOXIDE 32 mEq/l (22-31); CHLORIDE 112 mEq/L (97-110); CREATININE 0.6 mg/dL (0.6-1.0); GLOMERULAR FILTRATION RATE > 60; GLUCOSE 162 mg/dL (70-100); POTASSIUM 4.2 mEq/L (3.5-5.2); SODIUM 149 mEq/L (134-144); TOTAL PROTEIN 4.3 g/dL (6.3-8.2)
[2016-11-13 06:30] LABS: PLATELET ESTIMATE DECREASED (ADEQ); TOXIC GRANULATION PRESENT; TOXIC VACUOLIZATION PRESENT
[2016-11-13 06:31] LABS: TARGET CELLS 1+
[2016-11-13] MEDS ORDERED: BUPIVACAINE 0.5% 30 ML SDV ONE (07:49)
[2016-11-13] MEDS ORDERED: POLYMYXIN B SULFATE 500,000 UNIT/10 ML SYR IRR ONE (07:50)
[2016-11-13] MEDS: PANTOPRAZOLE SODIUM 40 MG in NS 100 ML IV SCH ×2 (07:50→21:26)
[2016-11-13] MEDS ORDERED: BACITRACIN 50,000 UNITS/10 ML SYR IRR ONE (07:50)
[2016-11-13] MEDS ORDERED: ROCURONIUM 50 MG/5 ML VIAL ONE ×2 (07:51)
[2016-11-13] MEDS: ERTAPENEM 1 GM in NS 100 ML IV SCH (07:51)
[2016-11-13] MEDS ORDERED: PROPOFOL 200 MG/20 ML VIAL ONE (07:52)
[2016-11-13] MEDS ORDERED: PHENYLEPHRINE HCL 100 MCG/ML SYR ONE (07:54)
--- NOTE | 2016-11-13 09:52 | POSTOPPROG ---
Post Op Note Date of Operation: 11/13/16 Surgeon: Denis Doan Die Keeper: michelle Anesthesiologist: ana Anesthesia: GET(General Endotracheal) Pre-op Diagnosis: peritonitis Post-op Diagnosis: same Indication: open wound Procedure: laparotomy, peritoneal lavage, drainage multiple abscesses, wound vac place Findings: multiple fluid filled pockets/ bowell in good shape Inf/Abcess present in the surg proc area at time of surgery?: Yes Depth: Organ Space EBL: Minimal Complications: 0 Drains: Benito Durbin, Wound Vac
[2016-11-13] MEDS: CHLORHEXIDINE GLUCONATE 15 ML UDL PO SCH ×2 (10:27→21:26)
[2016-11-13] MEDS: FLUCONAZOLE/NaCl 100 ML IV SCH (10:27)
[2016-11-13] MEDS ORDERED: D10W 1,000 ML IV PRN (12:36)
[2016-11-13 14:01] LABS: APTT 22.8 SEC (23.0-38.0); INR 1.07 (0.83-1.16); PROTIME(PATIENT) 13.8 SEC (12.0-15.0)
[2016-11-13 14:04] LABS: POTASSIUM 3.9 mEq/L (3.5-5.2)
[2016-11-13 14:27] LABS: TRIGLYCERIDE 581 mg/dL (35-135)
[2016-11-13] MEDS: POTASSIUM Cl (KCl) 100 ML IV SCH ×2 (15:05→17:30)
--- NOTE | 2016-11-13 15:07 | PDINTPN ---
Peer Financial Counselor Progress Note Assessment/Plan: Assessment/plan: 71 F with Crohns disease admitted 10/30/16 with abdominal pain and eventually underwent SB resection/SUHAIL on 11/04 who developed an acute abdomen on 11/09 requiring emergent surgery. She had a perforated bowel with peritonitis and returned to the ICU extubated but tenuous. She continued to have respiratory distress and her CXR showed diffuse bilateral infiltrates. An attempt at diuresis was unsuccessful and she was re-intubated 11/10/16. * Peritonitis 2/2 bowel perforation at an old anastamosis site (separate from her recent surgery). She is on broad spectrum abx and cultures are growing C ramosum. Her rising WBC may be from her stress dose steroids, which I hope to taper quickly once her abdomen is closed. She went back to OR today and her abdomen remains open as additional wash out was necessary. A wound vac remains in place. Pressors are off and steroids dc'd. She will need low dose prednisone (5/day chronically). Currently on ertapenem and fluconazole * Septic shock 2/2 above. Off pressors * Respiratory failure- source not clear at the moment. Differential includes volume overload/pulmonary edema, aspiration pneumonitis or asp PNA, versus ARDS from septic shock. Her PAP are low and she is responding well to PEEP. Stable from this perspective. Started weans today. Planning OR again on tuesday * Anemia- Not clearly bleeding but transfused last PM. Will recheck again today. * Nutrition- starting TPN today. May need to adjust IVF (now on D51/2NS with 10 mEq KCL/liter and still supplementing. Await TPN formulation. * * critical care 40 minutes 11/12/16 16:52 11/13/16 15:03 Objective: Vital Signs Temp Pulse Resp BP Pulse Ox 37.9 C 122 H 20 119/65 95 11/13/16 14:00 11/13/16 14:00 11/13/16 14:00 11/13/16 14:00 11/13/16 14:00 Microbiology 11/09/16 12:40 Blood Panel (PCR) - Final Blood No Organism Detected Laboratory Results 11/13/16 04:25 11/13/16 13:45 11/12/16 11/13/16 11/14/16 05:59 05:59 05:59 Intake Total 2456 3710.4 Output Total 1660 2715 Balance 796 995.4 PT 13.8 SEC (12.0-15.0) 11/13/16 13:45 INR 1.07 (0.83-1.16) 11/13/16 13:45 Physical Exam - Physical Exam General Appearance: no apparent distress, other (sedated) EENT: PERRL/EOMI Neck: supple Respiratory: lungs clear, normal breath sounds, No respiratory distress Cardiac/Chest: regular rate, rhythm, No edema Abdomen: soft, other (ileostomy and wound vac clean and without evidence of infection), No distended Skin: normal color, warm/dry Lymphatic: no adenopathy Extremities: No pedal edema Neuro/Psych: No abnormal chief estimator II-XII ICD10 Worksheet Patient Problems: Problems Problem Status Onset Abdominal pain Acute Acute Crohn's disease Acute Abdominal pain, chronic, right lower quadrant Acute Bronchitis Acute Crohns disease Acute Crohns disease of small intestine Acute Intra-abdominal abscess Acute Malnutrition Acute
--- NOTE | 2016-11-13 16:55 | HOSPPROG ---
Hospitalist Progress Note Assessment/Plan: * SBO due to Crohn's stricture s/p SUHAIL/SB resection * Peritonitis and abd abscess s/p bowel perf -s/p washout - open abdomen with wound vac -invanz, fluconazole * Septic shock - pressors * Acute respiratory failure - vent -ARDS vs. asp PNA vs. CHF * Crohn's disease -on chronic prednisone 5mg BID -s/p stress dose steroids Subjective: no events Objective: Vital Signs Temp Pulse Resp BP Pulse Ox 37.9 C 129 H 20 132/76 H 96 11/13/16 16:00 11/13/16 16:00 11/13/16 16:00 11/13/16 16:00 11/13/16 16:00 Microbiology 11/09/16 12:40 Blood Panel (PCR) - Final Blood No Organism Detected Laboratory Results 11/13/16 04:25 11/13/16 13:45 11/12/16 11/13/16 11/14/16 05:59 05:59 05:59 Intake Total 2456 3710.4 Output Total 1660 2715 Balance 796 995.4 PT 13.8 SEC (12.0-15.0) 11/13/16 13:45 INR 1.07 (0.83-1.16) 11/13/16 13:45 IV fentanyl gtt - Physical Exam Constitutional: no apparent distress, appears nourished, not in pain Cardiovascular: regular rate and rhythym, no murmur, rub, or gallop Respiratory: no respiratory distress, no rales or rhonchi, clear to auscultation Gastrointestinal: normoactive bowel sounds, soft, non-tender abdomen, no palpable masses Neurologic: No AAOx3 Psychiatric: other (intubated and sedated), No interacting appropriately ICD10 Worksheet Patient Problems: Problems Problem Status Onset Abdominal pain Acute Acute Crohn's disease Acute Abdominal pain, chronic, right lower quadrant Acute Bronchitis Acute Crohns disease Acute Crohns disease of small intestine Acute Intra-abdominal abscess Acute Malnutrition Acute
[2016-11-13] MEDS ORDERED: NS BOLUS 500 ML (Wide open) IV ONE (17:00)
[2016-11-13] MEDS ORDERED: D5W 1,000 ML IV SCH (21:00)
[2016-11-13] MEDS: TPN 1 EA BAG IV SCH (21:04)
[2016-11-13] MEDS: HYDROCORTISONE 100 MG/2 ML VIAL IVP SCH (21:26)
[2016-11-14] MEDS ORDERED: D50W 25 GM/50 ML SYR IVP PRN ×2 (00:30→09:53)
[2016-11-14] MEDS ORDERED: INSULIN LISPRO 100 UNIT/ML SC ONE (00:38)
[2016-11-14] MEDS: INSULIN LISPRO 100 UNIT/ML SC SCH ×6 (00:49→23:52)
[2016-11-14 00:56] LABS: POTASSIUM 4.5 mEq/L (3.5-5.2)
[2016-11-14 08:14] LABS: ALANINE AMINOTRANSFERASE 40 IU/L (9-52); ALBUMIN 1.9 g/dL (3.5-5.0); ALKALINE PHOSPHATASE 69 IU/L (38-126); ANION GAP 5 mEq/L (8-16); ASPARTATE AMINOTRANSFERASE 84 IU/L (14-46); BILIRUBIN,TOTAL 1.3 mg/dL (0.1-1.4); CALCIUM 7.2 mg/dL (8.5-10.4); CARBON DIOXIDE 29 mEq/l (22-31); CHLORIDE 112 mEq/L (97-110); CREATININE 0.5 mg/dL (0.6-1.0); GLOMERULAR FILTRATION RATE > 60; GLUCOSE 268 mg/dL (70-100); MAGNESIUM 1.9 mg/dL (1.6-2.3); POTASSIUM 4.3 mEq/L (3.5-5.2); SODIUM 146 mEq/L (134-144); TOTAL PROTEIN 3.8 g/dL (6.3-8.2)
[2016-11-14 08:18] LABS: ADD DIFF? YES; ADD MORPH? NO; ATYPICAL LYMPHOCYTE FLAG 40 (0-99); FRAGMENT RBC FLAG 90 (0-99); HEMATOCRIT 32.9 % (38.0-47.0); HEMOGLOBIN 10.9 g/dL (12.6-16.3); LIPEMIA HEMOLYSIS FLAG 80 (0-99); MEAN CELL HEMOGLOBIN CONCENTR. 33.1 g/dL (32.4-36.7); MEAN CELL VOLUME 87.5 fL (81.5-99.8); MEAN PLATELET VOLUME 11.8 fL (8.7-11.7); NRBC-AUTO% 0.6 % (0.0-0.2); PLATELET CLUMPS FLAG 10 (0-99); PLATELET COUNT 162 10^3/uL (150-400); RED BLOOD CELL COUNT 3.76 10^6/uL (4.18-5.33); RED CELL DISTRIBUTION WIDTH 16.8 % (11.5-15.2)
[2016-11-14 08:19] LABS: ADD SCAN? NO; LEFT SHIFT FLG 300 (0-99)
[2016-11-14] MEDS: PANTOPRAZOLE SODIUM 40 MG in NS 100 ML IV SCH (08:53)
[2016-11-14] MEDS: CHLORHEXIDINE GLUCONATE 15 ML UDL PO SCH ×2 (08:54→19:54)
[2016-11-14] MEDS: HYDROCORTISONE 100 MG/2 ML VIAL IVP SCH ×2 (08:54→20:23)
[2016-11-14] MEDS: ERTAPENEM 1 GM in NS 100 ML IV SCH (08:54)
--- NOTE | 2016-11-14 09:20 | SOAPPROG ---
SOAP Progress Note Assessment/Plan: Assessment/Plan - Neuro: denies pain when asked this AM. Sedation has been held - Pulm: Intubated, has been making a lot of progress with weans. Attempting extubation later this AM, shes still a little sleepy today - CV: Off pressors since yesterday AM, BP and HR stable. Cont to monitor. Has L femoral A line, would dc this LOUIE if she continues to be stable from BP - Abd: denies pain, Abthera in place, 300cc out since placement. AJS serosang. Ostomy working well. Takeback planned for tomorrow. NPO at [place] - ID: WBC back up to 15, on BS abx. Appreciate ID assistance - Heme: Hb stable, on LMWH - Dispo: poss extubation today, takeback tomorrow where she will hopefully be closed. 11/14/16 09:17 Subjective: Alert, doing well with weans Objective: Vital Signs Temp Pulse Resp BP Pulse Ox 37.6 C 94 20 128/68 H 96 11/14/16 08:00 11/14/16 08:25 11/14/16 08:00 11/14/16 08:00 11/14/16 08:25 Microbiology 11/09/16 12:40 Blood Panel (PCR) - Final Blood No Organism Detected Laboratory Results 11/14/16 04:25 11/14/16 04:25 11/13/16 11/14/16 11/15/16 05:59 05:59 05:59 Intake Total 3710.4 2243.6 Output Total 2715 1100 Balance 995.4 1143.6 PT 13.8 SEC (12.0-15.0) 11/13/16 13:45 INR 1.07 (0.83-1.16) 11/13/16 13:45 ICD10 Worksheet Patient Problems: Problems Problem Status Onset Abdominal pain Acute Acute Crohn's disease Acute Abdominal pain, chronic, right lower quadrant Acute Bronchitis Acute Crohns disease Acute Crohns disease of small intestine Acute Intra-abdominal abscess Acute Malnutrition Acute
[2016-11-14] MEDS ORDERED: D50W 25 GM/50 ML VIAL IVP PRN (09:53)
[2016-11-14] MEDS ORDERED: PARAMETERS MISC PRN (09:53)
[2016-11-14] MEDS: FLUCONAZOLE/NaCl 100 ML IV SCH (10:14)
[2016-11-14 11:26] LABS: HYPOCHROMIA 2+; LARGE PLATELETS PRESENT; PLATELET ESTIMATE ADEQUATE (ADEQ); POLYCHROMASIA 1+; TARGET CELLS 1+; TOXIC GRANULATION PRESENT; TOXIC VACUOLIZATION PRESENT
[2016-11-14] MEDS ORDERED: INSULIN REGULAR, HUMAN 100 UNIT/1 ML VIAL STANDARD SC SCH (12:00)
[2016-11-14] MEDS ORDERED: ACETAMINOPHEN 650 MG SUPP PR PRN (12:21)
[2016-11-14 12:31] LABS: POTASSIUM 3.6 mEq/L (3.5-5.2)
[2016-11-14] MEDS: POTASSIUM Cl (KCl) 50 ML IV SCH ×3 (12:58→14:28)
[2016-11-14] MEDS: PROPOFOL/EMULSION 100 ML IV SCH ×2 (13:35→20:22)
--- NOTE | 2016-11-14 14:30 | PDINTPN ---
Adult Psychiatrist Progress Note Assessment/Plan: Assessment/plan: 71 F with Crohns disease admitted 10/30/16 with abdominal pain and eventually underwent SB resection/SUHAIL on 11/04 who developed an acute abdomen on 11/09 requiring emergent surgery. She had a perforated bowel with peritonitis and returned to the ICU extubated but tenuous. She continued to have respiratory distress and her CXR showed diffuse bilateral infiltrates. An attempt at diuresis was unsuccessful and she was re-intubated 11/10/16. * Peritonitis 2/2 bowel perforation at an old anastamosis site (separate from her recent surgery). She is on broad spectrum abx and cultures are growing C ramosum. Currently on ertapenem and fluconazole; planning OR 11/14/16 * Septic shock 2/2 above. Off pressors * Respiratory failure- source not clear at the moment. Differential includes volume overload/pulmonary edema, aspiration pneumonitis or asp PNA, versus ARDS from septic shock. Her PAP are low and she is responding well to PEEP. Stable from this perspective, but unable to extubate today. * Anemia- Not clearly bleeding but transfused 11/12. Hct stable with appropriate response to transfusion. * Nutrition- starting TPN 11/13/16. * Hyperglycemia- dc'd maintenance IVF. Use SSI in the meantime * critical care 40 minutes Objective: Vital Signs Temp Pulse Resp BP Pulse Ox 37.8 C 98 14 147/81 H 97 11/14/16 12:00 11/14/16 12:20 11/14/16 12:00 11/14/16 12:00 11/14/16 12:20 Microbiology 11/09/16 12:40 Blood Panel (PCR) - Final Blood No Organism Detected Laboratory Results 11/14/16 04:25 11/14/16 12:05 11/13/16 11/14/16 11/15/16 05:59 05:59 05:59 Intake Total 3710.4 2243.6 Output Total 2715 1100 Balance 995.4 1143.6 PT 13.8 SEC (12.0-15.0) 11/13/16 13:45 INR 1.07 (0.83-1.16) 11/13/16 13:45 Physical Exam - Physical Exam General Appearance: no apparent distress, other (awake, but not following commands) EENT: PERRL/EOMI Neck: supple Respiratory: lungs clear, normal breath sounds, No respiratory distress Cardiac/Chest: regular rate, rhythm, No edema Abdomen: soft, No normal bowel sounds, No distended Skin: normal color, warm/dry Lymphatic: no adenopathy Extremities: No pedal edema Neuro/Psych: cognition abnormalities, No abnormal 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
--- NOTE | 2016-11-14 16:16 | HOSPPROG ---
Hospitalist Progress Note Assessment/Plan: * SBO due to adhesions s/p SUHAIL/SB resection * Leaking old ileocolic anastomosis with peritonitis/abd abscess -s/p washout - open abdomen - back to OR in am to close -invanz, fluconazole * Crohn's disease -on chronic prednisone 5mg BID -s/p stress dose steroids -continue low dose hydrocortisone while NPO * Septic shock - pressors off * Acute respiratory failure - vent -possible extubate soon * Nutrition -TPN while NPO Subjective: weaning well, extubate soon Objective: Vital Signs Temp Pulse Resp BP Pulse Ox 37.5 C 97 22 H 128/73 H 95 11/14/16 14:00 11/14/16 14:00 11/14/16 14:00 11/14/16 14:00 11/14/16 14:00 Laboratory Results 11/14/16 04:25 11/14/16 12:05 11/13/16 11/14/16 11/15/16 05:59 05:59 05:59 Intake Total 3710.4 2243.6 Output Total 2715 1100 Balance 995.4 1143.6 PT 13.8 SEC (12.0-15.0) 11/13/16 13:45 INR 1.07 (0.83-1.16) 11/13/16 13:45 d/w Dr. Jackson ICU rounds - weaning well, possible extubation today tele reviewed - NSR - Physical Exam Constitutional: no apparent distress, appears nourished, not in pain Cardiovascular: regular rate and rhythym, no murmur, rub, or gallop Respiratory: no respiratory distress, no rales or rhonchi, clear to auscultation Gastrointestinal: soft, non-tender abdomen, no palpable masses, other (wound vac to open abdomen) Skin: no rashes or abrasions, no fluctuance, no induration Neurologic: other (sedated), No AAOx3 Psychiatric: encephalopathic, poor insight, poor judgement, poor memory, No agitated ICD10 Worksheet Patient Problems: Problems Problem Status Onset Abdominal pain Acute Acute Crohn's disease Acute Abdominal pain, chronic, right lower quadrant Acute Bronchitis Acute Crohns disease Acute Crohns disease of small intestine Acute Intra-abdominal abscess Acute Malnutrition Acute
--- NOTE | 2016-11-14 17:12 | PCMIDPN ---
Assessment/Plan: Assessment: Septic shock and peritonitis-with bacteremia due to Clostridium ramosum. This isolate is covered by the ertapenem. The broad-spectrum coverage of ertapenem also covers the majority of bowel organisms that could be involved in spillage. Fluconazole is a useful addition. Plan to continue this regimen. Patient to return to the OR tomorrow for another washout and hopeful closure. Plan: 1. Continue both ertapenem and fluconazole. 2. Return to the OR tomorrow. Await report from that procedure. 11/14/16 17:18 Subjective: Patient remains intubated. Weaning attempt today was halted secondary to patient's inability to follow commands appropriately. She will remain intubated through the procedure tomorrow. Temperatures have been fluctuating between 37 and 38 degrees C. Objective: Ertapenem # 6 Fluconazole # 2 Vital Signs Temp Pulse Resp BP Pulse Ox 37.4 C 71 18 108/62 96 11/14/16 16:00 11/14/16 16:00 11/14/16 16:00 11/14/16 16:00 11/14/16 16:00 Laboratory Results 11/14/16 04:25 11/14/16 12:05 11/13/16 11/14/16 11/15/16 05:59 05:59 05:59 Intake Total 3710.4 2243.6 Output Total 2715 1100 Balance 995.4 1143.6 - Physical Exam General Appearance: WD/WN, thin, other (Intubated and sedated) Respiratory: lungs clear, normal breath sounds, No respiratory distress Cardiac/Chest: regular rate, rhythm, No tachycardia Skin: normal color, warm/dry, No rash ICD10 Worksheet Patient Problems: Problems Problem Status Onset Abdominal pain Acute Acute Crohn's disease Acute Abdominal pain, chronic, right lower quadrant Acute Bronchitis Acute Crohns disease Acute Crohns disease of small intestine Acute Intra-abdominal abscess Acute Malnutrition Acute
[2016-11-14 18:10] LABS: POTASSIUM 3.9 mEq/L (3.5-5.2)
[2016-11-14] MEDS ORDERED: POTASSIUM Cl (KCl) 50 ML IV ONE (19:52)
[2016-11-14] MEDS: fentaNYL/NACL 100 ML IV SCH (20:23)
[2016-11-14] MEDS: TPN 1 EA BAG IV SCH (20:23)
[2016-11-15 04:38] LABS: ABSOLUTE NRBC COUNT 0.09 10^3/uL (0-0.01); ADD DIFF? YES; ADD MORPH? NO; ATYPICAL LYMPHOCYTE FLAG 10 (0-99); FRAGMENT RBC FLAG 0 (0-99); HEMATOCRIT 29.1 % (38.0-47.0); HEMOGLOBIN 9.6 g/dL (12.6-16.3); LIPEMIA HEMOLYSIS FLAG 80 (0-99); MEAN CELL HEMOGLOBIN 29.2 pg (27.9-34.1); MEAN CELL VOLUME 88.4 fL (81.5-99.8); NRBC-AUTO% 0.4 % (0.0-0.2); PLATELET CLUMPS FLAG 10 (0-99); PLATELET COUNT 176 10^3/uL (150-400); RED BLOOD CELL COUNT 3.29 10^6/uL (4.18-5.33); RED CELL DISTRIBUTION WIDTH 16.6 % (11.5-15.2)
[2016-11-15 04:45] LABS: ADD SCAN? NO; LEFT SHIFT FLG 230 (0-99)
[2016-11-15 04:50] LABS: INR 1.12 (0.83-1.16); PROTIME(PATIENT) 14.3 SEC (12.0-15.0)
[2016-11-15 04:53] LABS: ALANINE AMINOTRANSFERASE 45 IU/L (9-52); ALBUMIN 1.9 g/dL (3.5-5.0); ALKALINE PHOSPHATASE 76 IU/L (38-126); ANION GAP 2 mEq/L (8-16); ASPARTATE AMINOTRANSFERASE 81 IU/L (14-46); BILIRUBIN,TOTAL 0.9 mg/dL (0.1-1.4); CALCIUM 7.4 mg/dL (8.5-10.4); CARBON DIOXIDE 32 mEq/l (22-31); CHLORIDE 110 mEq/L (97-110); CREATININE 0.4 mg/dL (0.6-1.0); GLOMERULAR FILTRATION RATE > 60; GLUCOSE 197 mg/dL (70-100); MAGNESIUM 1.9 mg/dL (1.6-2.3); POTASSIUM 3.9 mEq/L (3.5-5.2); SODIUM 144 mEq/L (134-144); TOTAL PROTEIN 4.2 g/dL (6.3-8.2); TRIGLYCERIDE 244 mg/dL (35-135)
[2016-11-15] MEDS ORDERED: POTASSIUM Cl (KCl) 50 ML IV ONE ×2 (04:57→13:49)
[2016-11-15 04:58] LABS: APTT 27.6 SEC (23.0-38.0)
[2016-11-15] MEDS: INSULIN LISPRO 100 UNIT/ML SC SCH (05:09)
[2016-11-15 05:21] LABS: PLATELET ESTIMATE ADEQUATE (ADEQ)
[2016-11-15 05:22] LABS: HYPOCHROMIA 1+; LARGE PLATELETS PRESENT; POLYCHROMASIA 1+
[2016-11-15] MEDS: PREGABALIN 50 MG CAP PO SCH (07:56)
[2016-11-15] MEDS ORDERED: BUPIVACAINE 0.5% 30 ML SDV ONE (07:58)
[2016-11-15] MEDS: HYDROCORTISONE 100 MG/2 ML VIAL IVP SCH ×2 (08:00→20:22)
[2016-11-15] MEDS: PANTOPRAZOLE SODIUM 40 MG in NS 100 ML IV SCH (08:02)
[2016-11-15] MEDS: CHLORHEXIDINE GLUCONATE 15 ML UDL PO SCH ×2 (08:02→20:22)
[2016-11-15] MEDS: FLUCONAZOLE/NaCl 100 ML IV SCH (08:02)
[2016-11-15] MEDS: ERTAPENEM 1 GM in NS 100 ML IV SCH (08:02)
[2016-11-15] MEDS: PROPOFOL/EMULSION 100 ML IV SCH ×2 (11:00→20:22)
--- NOTE | 2016-11-15 11:10 | PCMIDPN ---
Assessment/Plan: Assessment/Plan: * Septic shock due to peritonitis associated with anastomotic breakdown: Blood culture show growth of Clostridia species. White blood cell count increased today which could be secondary to infection versus leukemoid response after initial white blood cell count had decreased significantly during acute sepsis. Plans for repeat washout in OR today and possible wound closure depending on findings. Continue ertapenem and fluconazole. 11/15/16 11:07 Subjective: Intubated. Plans for repeat washout in OR today. Off pressors. Objective: Vital Signs Temp Pulse Resp BP Pulse Ox 37.6 C 89 28 H 157/77 H 95 11/15/16 10:00 11/15/16 10:00 11/15/16 10:00 11/15/16 10:00 11/15/16 08:30 Laboratory Results 11/15/16 04:10 11/15/16 04:10 11/14/16 11/15/16 11/16/16 05:59 05:59 05:59 Intake Total 2243.6 2244 Output Total 1100 1810 Balance 1143.6 434 Ertapenem # 7 Fluconazole # 3 T 37.6 - Physical Exam General Appearance: non-toxic, other (Mild agitation) EENT: ET Tube, No scleral icterus Respiratory: lungs clear (Anterolaterally) Cardiac/Chest: regular rate, rhythm Abdomen: non-tender, other (Wound VAC in place; serous output from JAS bulb), No distended - Line/s RUE PICC Lines: No drainage, No erythema ICD10 Worksheet Patient Problems: Problems Problem Status Onset Abdominal pain Acute Acute Crohn's disease Acute Abdominal pain, chronic, right lower quadrant Acute Bronchitis Acute Crohns disease Acute Crohns disease of small intestine Acute Intra-abdominal abscess Acute Malnutrition Acute
[2016-11-15] MEDS: INSULIN REGULAR, HUMAN 100 UNIT/1 ML VIAL STANDARD SC SCH ×2 (11:51→18:11)
[2016-11-15 12:01] LABS: POTASSIUM 3.8 mEq/L (3.5-5.2)
[2016-11-15] MEDS ORDERED: fentaNYL 250 MCG/5 ML INJ ONE (13:22)
[2016-11-15] MEDS ORDERED: PROPOFOL 200 MG/20 ML VIAL ONE (13:24)
[2016-11-15] MEDS ORDERED: HYDROmorphONE/DILAUDID 2 MG/ML INJ ONE (14:10)
[2016-11-15] MEDS ORDERED: epHEDrine SULFATE 10 MG/ML SYR ONE (14:10)
[2016-11-15] MEDS ORDERED: PHENYLEPHRINE HCL 100 MCG/ML SYR ONE (14:38)
--- NOTE | 2016-11-15 15:50 | PDINTPN ---
Lower In Supervisor Progress Note Assessment/Plan: Assessment: 71 F with Crohns disease admitted 10/30/16 with abdominal pain and eventually underwent SB resection/SUHAIL on 11/04 who developed an acute abdomen on 11/09 requiring emergent surgery. She had a perforated bowel with peritonitis and returned to the ICU extubated but tenuous. She continued to have respiratory distress and her CXR showed diffuse bilateral infiltrates. An attempt at diuresis was unsuccessful and she was re-intubated 11/10/16. * Peritonitis 2/2 bowel perforation at an old anastamosis site (separate from her recent surgery). She is on broad spectrum abx and cultures are growing C ramosum. Currently on ertapenem and fluconazole; Unable to close abdomen today. * Septic shock 2/2 above. Off pressors * Respiratory failure- New problem to me. source not clear at the moment. Differential includes volume overload/pulmonary edema, aspiration pneumonitis or asp PNA, versus ARDS from septic shock. Her PAP are low and she is responding well to PEEP. Will not extubate today, as she has just returned from the OR and is still sedated. * Anemia- Not clearly bleeding but transfused 11/12. Hct stable with appropriate response to transfusion. * Nutrition- starting TPN 11/13/16. * Hyperglycemia- dc'd maintenance IVF. Use SSI in the meantime Plan: Continue antibiotics, mechanical ventilation. Follow Hgb. Repeat CXR. 11/15/16 15:48 11/15/16 15:51 Subjective: Intubated, sedated. Objective: Vital Signs Temp Pulse Resp BP Pulse Ox 36.9 C 92 9 L 145/67 H 96 11/15/16 15:07 11/15/16 15:07 11/15/16 15:07 11/15/16 15:07 11/15/16 15:07 Laboratory Results 11/15/16 04:10 11/15/16 11:45 11/14/16 11/15/16 11/16/16 05:59 05:59 05:59 Intake Total 2243.6 2244 1345 Output Total 1100 1810 400 Balance 1143.6 434 945 PT 14.3 SEC (12.0-15.0) 11/15/16 04:10 INR 1.12 (0.83-1.16) 11/15/16 04:10 CXR: Physical Exam - Physical Exam General Appearance: no apparent distress, No alert (sedated, opens eyes, not following commands.) EENT: pharynx normal Neck: normal inspection Respiratory: lungs clear, normal breath sounds, No respiratory distress Cardiac/Chest: regular rate, rhythm, No edema Abdomen: soft, other (open abdomen dressed.), No normal bowel sounds, No non- tender Skin: normal color, warm/dry Extremities: non-tender, normal inspection Neuro/Psych: No alert, No oriented x 3 ICD10 Worksheet Patient Problems: Problems Problem Status Onset Abdominal pain Acute Acute Crohn's disease Acute Abdominal pain, chronic, right lower quadrant Acute Bronchitis Acute Crohns disease Acute Crohns disease of small intestine Acute Intra-abdominal abscess Acute Malnutrition Acute
--- NOTE | 2016-11-15 16:23 | HOSPPROG ---
Hospitalist Progress Note Assessment/Plan: assessment: 71-year-old female presents with acute SBO c/b acute peritonitis, septic shock, acute hypoxic respiratory failure Plan: 1. SBO due to adhesions s/p SUHAIL/SB resection 2. Leaking old ileocolic anastomosis with peritonitis/abd abscess -Clostridium possible organism on culture -s/p OR today -cont invanz, fluconazole -appreciate ongoing ID consultation -cont monitor CBC, WBC rising today 3. Crohn's disease, with chronic immunosuppression, potentially contributing to presentation -s/p stress dose steroids -continue low dose hydrocortisone while NPO 4. Septic shock, evidenced by SBP 84, vLact 4.2, tachycardia/tachypnea/ leukocytosis/clear source of infection, resulting in autonomic dysregulation in setting of infxn -cont empiric Abx -holding on further IVF -monitor WBC 5. Acute hypoxic respiratory failure, evidenced by PaO2 54 and objective tachypnea/respiratory distress requiring reintubation, secondary to either acute volume overload vs. aspiration pneumonia, NOT a complication related to the surgery, infiltrates on CXR -d/w Dr. Roy, he does not recommend extubating patient while she is not following commands, will hold sedation daily to gauge level of interactiveness Diet. NPO, TPN Code. Full PPx. High risk, SCDs, lovenox 40 in AM Dispo. ADD uncertain, pending stabilization of above Patient remains critically ill w/ high level of medical complexity, high risk of morbidity and/or mortality. Subjective: patient not following commands Objective: Vital Signs Temp Pulse Resp BP Pulse Ox 36.9 C 87 8 L 138/74 H 95 11/15/16 16:00 11/15/16 16:00 11/15/16 16:00 11/15/16 16:00 11/15/16 16:00 Laboratory Results 11/15/16 04:10 11/15/16 11:45 11/14/16 11/15/16 11/16/16 05:59 05:59 05:59 Intake Total 2243.6 2244 1345 Output Total 1100 1810 400 Balance 1143.6 434 945 PT 14.3 SEC (12.0-15.0) 11/15/16 04:10 INR 1.12 (0.83-1.16) 11/15/16 04:10 - Physical Exam Constitutional: no apparent distress, not in pain, unkempt, No uncomfortable Eyes: PERRL, anicteric sclera, EOMI Cardiovascular: systolic murmur ( 1/6 at the sternum), No irregularly irregular , No tachycardia, No edema Respiratory: reduced air movement ( bilateral bases), No expiratory wheeze, No inspiratory crackles, No bronchial breath sounds Gastrointestinal: other ( abdominal incision site in place, tenderness to palpation over right abdomen, hypoactive bowel sounds), No guarding, No distension Neurologic: other ( not following commands) ICD10 Worksheet Patient Problems: Problems Problem Status Onset Bronchitis Acute Malnutrition Acute Crohns disease Acute Intra-abdominal abscess Acute Abdominal pain, chronic, right lower quadrant Acute Crohns disease of small intestine Acute Abdominal pain Acute Acute Crohn's disease Acute
--- NOTE | 2016-11-15 17:36 | POSTOPPROG ---
Post Op Note Date of Operation: 11/15/16 Surgeon: Denis Doan Range Examiner: TANYA Anesthesiologist: DENNIS Anesthesia: GET(General Endotracheal) Pre-op Diagnosis: PERITONITIS AND OPEN ABDOMEN Post-op Diagnosis: SAME Indication: IMPROVING Procedure: LAPAROTOMY / DRAINAGE PELVIC ABSCESS/ ABDOMINAL LAVAGE AND ABDOMINAL CLOSU Findings: DECREASING PERITONEAL CONTAMINATION / LOCALIZED COLLECTION IN CUL-DE -SAC Inf/Abcess present in the surg proc area at time of surgery?: Yes Depth: Organ Space EBL: Minimal Complications: 9 Drains: Benito Durbin
[2016-11-15] MEDS: TPN 1 EA BAG IV SCH (20:22)
[2016-11-15] MEDS: fentaNYL/NACL 100 ML IV SCH (20:22)
[2016-11-16] MEDS: INSULIN REGULAR, HUMAN 100 UNIT/1 ML VIAL STANDARD SC SCH ×4 (00:40→18:38)
[2016-11-16 04:28] LABS: HEMATOCRIT 31.8 % (38.0-47.0); HEMOGLOBIN 10.6 g/dL (12.6-16.3); MEAN CELL HEMOGLOBIN 29.6 pg (27.9-34.1); MEAN CELL HEMOGLOBIN CONCENTR. 33.3 g/dL (32.4-36.7); MEAN CELL VOLUME 88.8 fL (81.5-99.8); RED BLOOD CELL COUNT 3.58 10^6/uL (4.18-5.33); RED CELL DISTRIBUTION WIDTH 16.5 % (11.5-15.2)
[2016-11-16 04:41] LABS: ANION GAP 6 mEq/L (8-16); CALCIUM 7.6 mg/dL (8.5-10.4); CARBON DIOXIDE 34 mEq/l (22-31); CHLORIDE 106 mEq/L (97-110); CREATININE 0.3 mg/dL (0.6-1.0); GLOMERULAR FILTRATION RATE > 60; GLUCOSE 97 mg/dL (70-100); POTASSIUM 3.8 mEq/L (3.5-5.2); SODIUM 146 mEq/L (134-144)
[2016-11-16] MEDS ORDERED: POTASSIUM Cl (KCl) 50 ML IV ONE ×2 (07:08→15:45)
[2016-11-16] MEDS: PANTOPRAZOLE SODIUM 40 MG in NS 100 ML IV SCH (07:19)
[2016-11-16] MEDS: ERTAPENEM 1 GM in NS 100 ML IV SCH (07:20)
[2016-11-16] MEDS: CHLORHEXIDINE GLUCONATE 15 ML UDL PO SCH ×2 (07:20→21:23)
[2016-11-16] MEDS: HYDROCORTISONE 100 MG/2 ML VIAL IVP SCH (07:20)
[2016-11-16] MEDS: FLUCONAZOLE/NaCl 100 ML IV SCH (07:20)
--- NOTE | 2016-11-16 08:55 | PCMIDPN ---
Assessment/Plan: Assessment/Plan: 1. Septic shock secondary to Interloop abscess/peritonitis secondary related to anastomotic leak - s/p wash out x 4 (11/09, 11/11, 11/13, 11/15) -Recent op noted reviewed. less purulent material noted -For possible surgery tomorrow or day after with possible closure depending on findings. -Currnelty on invanz, fluconazole. -wbc still elevated. Cr stable. -recent c. diff neg -daughter updated, reviewed plan of care 2. Clostridium bacteremia: - secondary to above, -check f/u blood cx today. Meds invanz fluconaozle Subjective: inermittnet low grade temps. eyes open but not really following commands. on light sedation. intubated. drains in place. au Objective: Vital Signs Temp Pulse Resp BP Pulse Ox 37.7 C 97 23 H 158/91 H 99 11/16/16 07:23 11/16/16 07:23 11/16/16 07:23 11/16/16 07:23 11/16/16 07:23 Laboratory Results 11/16/16 04:15 11/16/16 04:15 11/15/16 11/16/16 11/17/16 05:59 05:59 05:59 Intake Total 2244 2420 Output Total 1810 2215 Balance 434 205 - Physical Exam General Appearance: other (eyes open but not following commands. in icu, intubated) EENT: ET Tube Respiratory: coarse breath sounds (mild) Cardiac/Chest: regular rate, rhythm Extremities: No swelling Abdomen: other (bs quiet, distended, drains in place, with serosanguinous and serous drainage. ) Pelvic Exam: au Skin: No erythema ICD10 Worksheet Patient Problems: Problems Problem Status Onset Abdominal pain Acute Acute Crohn's disease Acute Abdominal pain, chronic, right lower quadrant Acute Bronchitis Acute Crohns disease Acute Crohns disease of small intestine Acute Intra-abdominal abscess Acute Malnutrition Acute
[2016-11-16] MEDS ORDERED: PROTOCOL POTASSIUM 1 DOSE MISC PRN (09:31)
[2016-11-16] MEDS: fentaNYL/NACL 100 ML IV SCH (11:02)
--- NOTE | 2016-11-16 13:13 | PDINTPN ---
Energy Rater Progress Note Assessment/Plan: Assessment: 71 F with Crohns disease admitted 10/30/16 with abdominal pain and eventually underwent SB resection/SUHAIL on 11/04 who developed an acute abdomen on 11/09 requiring emergent surgery. She had a perforated bowel with peritonitis and returned to the ICU extubated but tenuous. She continued to have respiratory distress and her CXR showed diffuse bilateral infiltrates. An attempt at diuresis was unsuccessful and she was re-intubated 11/10/16. * Peritonitis 2/2 bowel perforation at an old anastamosis site (separate from her recent surgery). She is on broad spectrum abx and cultures are growing C ramosum. Currently on ertapenem and fluconazole; Unable to close abdomen today. * Septic shock 2/2 above. Off pressors * Respiratory failure- Source not clear at the moment. Differential includes volume overload/pulmonary edema, aspiration pneumonitis or asp PNA, versus ARDS from septic shock. Her PAP are low and she is responding well to PEEP. * Anemia- Not clearly bleeding but transfused 11/12. Hct stable with appropriate response to transfusion. * Nutrition- started TPN 11/13/16. * Hyperglycemia- Improved Plan: Continue antibiotics. Decrease sedation. Probably can extubate. Can start PO meds. Will change steroids to PO and reduce dose. Follow Hgb. 11/16/16 13:19 11/16/16 13:21 Subjective: Awake but not responding to questions. Objective: Vital Signs Temp Pulse Resp BP Pulse Ox 37.6 C 88 20 161/88 H 100 11/16/16 10:00 11/16/16 10:00 11/16/16 10:00 11/16/16 10:00 11/16/16 10:00 Laboratory Results 11/16/16 04:15 11/16/16 04:15 11/15/16 11/16/16 11/17/16 05:59 05:59 05:59 Intake Total 2244 2420 Output Total 1810 2215 225 Balance 434 205 -225 PT 14.3 SEC (12.0-15.0) 11/15/16 04:10 INR 1.12 (0.83-1.16) 11/15/16 04:10 Improved bilateral infiltrates. Images reviewed. Physical Exam - Physical Exam General Appearance: alert, no apparent distress EENT: normal ENT inspection Neck: normal inspection Respiratory: lungs clear, normal breath sounds, No respiratory distress Cardiac/Chest: regular rate, rhythm, No edema Abdomen: normal bowel sounds, soft, No non-tender (diffuse tenderness to firm palpation) Skin: normal color, warm/dry Extremities: normal inspection Neuro/Psych: alert, No normal mood/affect, No oriented x 3 ICD10 Worksheet Patient Problems: Problems Problem Status Onset Abdominal pain Acute Acute Crohn's disease Acute Abdominal pain, chronic, right lower quadrant Acute Bronchitis Acute Crohns disease Acute Crohns disease of small intestine Acute Intra-abdominal abscess Acute Malnutrition Acute
[2016-11-16 15:04] LABS: POTASSIUM 3.7 mEq/L (3.5-5.2)
--- NOTE | 2016-11-16 15:10 | SOAPPROG ---
SOAP Progress Note Assessment/Plan: Assessment/Plan: 71 Y F Crohn's disease, s/p SBR for stricture, peritonitis. s/ p abdominal exploration with resection of remote ileocolic anastomosis, open abdomen with multiple abthera wound vac changes in OR, ileostomy, now s/p fascial closure with superficial abdominal wall/incisional wound vac. Plan for vac change tomorrow. Appreciate home care associate, medicine, and ID input. Off pressors. Continue abx. Possible extubation soon. S: Sleeping but arousable O: Tired, nonverbal diminished BS rrr abd softer but still distended, vac to suction, drain serosanguinous, ileostomy in rlq pink 11/16/16 15:08 Objective: Vital Signs Temp Pulse Resp BP Pulse Ox 37.3 C 92 27 H 165/89 H 99 11/16/16 14:00 11/16/16 14:35 11/16/16 14:35 11/16/16 14:00 11/16/16 14:35 Laboratory Results 11/16/16 04:15 11/16/16 14:30 11/15/16 11/16/16 11/17/16 05:59 05:59 05:59 Intake Total 2244 2420 Output Total 1810 2215 1050 Balance 434 205 -1050 PT 14.3 SEC (12.0-15.0) 11/15/16 04:10 INR 1.12 (0.83-1.16) 11/15/16 04:10 ICD10 Worksheet Patient Problems: Problems Problem Status Onset Abdominal pain Acute Acute Crohn's disease Acute Abdominal pain, chronic, right lower quadrant Acute Bronchitis Acute Crohns disease Acute Crohns disease of small intestine Acute Intra-abdominal abscess Acute Malnutrition Acute
[2016-11-16] MEDS ORDERED: POTASSIUM Cl (KCl) 20 MEQ/50 ML BAG IV ONE (15:48)
[2016-11-16] MEDS ORDERED: ONDANSETRON DISINTEGRATING 4 MG TAB TUBE PRN (16:06)
[2016-11-16] MEDS: predniSONE 5 MG TAB TUBE SCH (18:41)
--- NOTE | 2016-11-16 19:10 | HOSPPROG ---
Hospitalist Progress Note Assessment/Plan: assessment: 71-year-old female presents with acute SBO c/b acute peritonitis, septic shock, acute hypoxic respiratory failure Plan: 1. SBO due to adhesions s/p SUHAIL/SB resection 2. Leaking old ileocolic anastomosis with peritonitis/abd abscess -Clostridium possible organism on culture -s/p OR w/ fluid collection washed out, vac in place -cont invanz, fluconazole -appreciate ongoing ID consultation, repeat BCx today -cont monitor CBC 3. Crohn's disease, with chronic immunosuppression, potentially contributing to presentation -s/p stress dose steroids -adjusted back to prednisone 4. Septic shock, evidenced by SBP 84, vLact 4.2, tachycardia/tachypnea/ leukocytosis/clear source of infection, resulting in autonomic dysregulation in setting of infxn -cont empiric Abx -holding on further IVF -monitor WBC 5. Acute hypoxic respiratory failure, evidenced by PaO2 54 and objective tachypnea/respiratory distress requiring reintubation, secondary to either acute volume overload vs. aspiration pneumonia, NOT a complication related to the surgery, infiltrates on CXR -d/w Dr. Roy, we agree that CXR is improving and if patient can be weaned from sedation safely, then she can possibly extubate 6. Atelectasis. Acute, present on CXR, will get IS when extubated Diet. TPN, trickle Code. Full PPx. High risk, SCDs, no lovenox 2/2 bleeding at site Dispo. ADD uncertain, pending stabilization of above Patient remains critically ill w/ high level of medical complexity, high risk of morbidity and/or mortality. Subjective: patient remains non directable Objective: Vital Signs Temp Pulse Resp BP Pulse Ox 37.1 C 82 16 145/72 H 97 11/16/16 18:00 11/16/16 18:00 11/16/16 16:00 11/16/16 18:00 11/16/16 16:00 Laboratory Results 11/16/16 04:15 11/16/16 14:30 11/15/16 11/16/16 11/17/16 05:59 05:59 05:59 Intake Total 2244 2420 1162 Output Total 1810 2215 1350 Balance 434 205 -188 PT 14.3 SEC (12.0-15.0) 11/15/16 04:10 INR 1.12 (0.83-1.16) 11/15/16 04:10 - Physical Exam Constitutional: no apparent distress, not in pain, chronically ill appearing, No uncomfortable Cardiovascular: No systolic murmur, No irregularly irregular, No tachycardia, No edema Respiratory: inspiratory crackles ( bilateral bases), No reduced air movement, No expiratory wheeze, No bronchial breath sounds Gastrointestinal: tenderness ( bilaterally to moderate depth palpation, patient winces), other ( central abdominal wound with VAC in place), No normoactive bowel sounds ( hypoactive bowel sounds), No guarding, No distension Skin: other ( no erythema, no induration, no fluctuance, no pustulant or bleeding around the wound VAC site) Neurologic: other ( patient not following commands) ICD10 Worksheet Patient Problems: Problems Problem Status Onset Bronchitis Acute Malnutrition Acute Crohns disease Acute Intra-abdominal abscess Acute Abdominal pain, chronic, right lower quadrant Acute Crohns disease of small intestine Acute Abdominal pain Acute Acute Crohn's disease Acute
[2016-11-16] MEDS: PREGABALIN 50 MG CAP TUBE SCH (21:23)
[2016-11-16] MEDS: TPN W/ FAMOTIDINE 1 EA BAG IV SCH (21:30)
[2016-11-17 00:57] LABS: GLUCOSE 115 mg/dL (70-100)
[2016-11-17] MEDS: PROPOFOL/EMULSION 100 ML IV SCH (02:03)
[2016-11-17] MEDS: fentaNYL/NACL 100 ML IV SCH (02:03)
[2016-11-17] MEDS: INSULIN REGULAR, HUMAN 100 UNIT/1 ML VIAL STANDARD SC SCH ×4 (02:04→18:21)
[2016-11-17 05:25] LABS: ANION GAP 7 mEq/L (8-16); CALCIUM 7.8 mg/dL (8.5-10.4); CARBON DIOXIDE 29 mEq/l (22-31); CHLORIDE 105 mEq/L (97-110); CREATININE 0.4 mg/dL (0.6-1.0); GLOMERULAR FILTRATION RATE > 60; GLUCOSE 123 mg/dL (70-100); MAGNESIUM 2.1 mg/dL (1.6-2.3); POTASSIUM 4.4 mEq/L (3.5-5.2); SODIUM 141 mEq/L (134-144)
--- NOTE | 2016-11-17 08:29 | PCMIDPN ---
Assessment/Plan: #Polymicrobial peritonitis s/p anastomotic leak following open SB resection for management of Crohn's. Now s/p abdominal exploration with resection of remote ileocolic anastomosis abdomen then left open with multiple wound vac changes in OR, ileostomy, now s/p fascial closure with superficial abdominal wall/ incisional wound vac. No new WBC today, but yesterday markedly elevated, Tm 37.7 --empiric coverage with ertapenem and fluconazole #clostridium bacteremia 11/09 secondary to intra-abdominal process --blood cx repeated yesterday 11/16 --ertapenem will cover meds ertapenem 1gm IV daily, #9 fluconazole 200mg IV daily, #5 Subjective: no specific events overnight off propofol but not following commands Currently trying to wean from vent, mental status limiting Objective: Vital Signs Temp Pulse Resp BP Pulse Ox 37.5 C 96 16 156/82 H 99 11/17/16 08:00 11/17/16 08:00 11/17/16 08:00 11/17/16 08:00 11/17/16 08:00 Laboratory Results 11/16/16 04:15 11/17/16 04:45 11/16/16 11/17/16 11/18/16 05:59 05:59 05:59 Intake Total 2420 2053 Output Total 2215 2260 Balance - Physical Exam EENT: pale conjunctiva, ET Tube, NG Tube Respiratory: coarse breath sounds, No accessory muscle use Cardiac/Chest: regular rate, rhythm Extremities: pedal edema Abdomen: non-tender, other (Bowel sound present; midline wound vac, ileostomy with stool) Pelvic Exam: au Skin: pallor, No diaphoresis, No rash Neuro/Psych: alert, confused - Line/s RUE PICC Lines: No drainage, No erythema ICD10 Worksheet Patient Problems: Problems Problem Status Onset Abdominal pain Acute Acute Crohn's disease Acute Abdominal pain, chronic, right lower quadrant Acute Bronchitis Acute Crohns disease Acute Crohns disease of small intestine Acute Intra-abdominal abscess Acute Malnutrition Acute
[2016-11-17] MEDS: CHLORHEXIDINE GLUCONATE 15 ML UDL PO SCH (09:17)
[2016-11-17] MEDS: FLUoxetine 20 MG CAP TUBE SCH (09:18)
[2016-11-17] MEDS: ERTAPENEM 1 GM in NS 100 ML IV SCH (09:18)
[2016-11-17] MEDS: predniSONE 5 MG TAB TUBE SCH ×2 (09:18→17:14)
[2016-11-17] MEDS: PREGABALIN 50 MG CAP TUBE SCH ×2 (09:18→20:32)
[2016-11-17] MEDS: FLUCONAZOLE/NaCl 100 ML IV SCH (09:26)
[2016-11-17 09:46] LABS: ABSOLUTE NRBC COUNT 0.02 10^3/uL (0-0.01); ADD DIFF? YES; ADD MORPH? NO; ATYPICAL LYMPHOCYTE FLAG 0 (0-99); FRAGMENT RBC FLAG 10 (0-99); HEMATOCRIT 32.4 % (38.0-47.0); HEMOGLOBIN 10.6 g/dL (12.6-16.3); LIPEMIA HEMOLYSIS FLAG 80 (0-99); MEAN CELL HEMOGLOBIN CONCENTR. 32.7 g/dL (32.4-36.7); MEAN CELL VOLUME 88.5 fL (81.5-99.8); MEAN PLATELET VOLUME 11.7 fL (8.7-11.7); NRBC-AUTO% 0.1 % (0.0-0.2); PLATELET CLUMPS FLAG 10 (0-99); PLATELET COUNT 345 10^3/uL (150-400); RED BLOOD CELL COUNT 3.66 10^6/uL (4.18-5.33); RED CELL DISTRIBUTION WIDTH 16.4 % (11.5-15.2)
[2016-11-17 09:49] LABS: LEFT SHIFT FLG 100 (0-99)
[2016-11-17 09:50] LABS: ADD SCAN? NO
[2016-11-17 11:26] LABS: BASE EXCESS 4.1 mEq/L (-2.5-2.5); BICARBONATE 28 mEq/L (22-26); CPAP YES; MEASURED OXYGEN SATURATION 96 % (92-95); PCO2 45 mmHg (34-38); PO2 88 mmHg (65-75); TCO2 30 mEq/L (23-27)
[2016-11-17 11:27] LABS: PATIENT RATE 20; PRESSURE SUPPORT 7
[2016-11-17 11:28] LABS: O2 CONCENTRATIION 40 % (0-100); P/F RATIO 220 RATIO
[2016-11-17 11:29] LABS: END TIDAL CO2 62
[2016-11-17 11:29] LABS: MACROCYTES 1+; PLATELET ESTIMATE ADEQUATE (ADEQ); POLYCHROMASIA 1+; TOXIC GRANULATION PRESENT
--- NOTE | 2016-11-17 12:20 | SOAPPROG ---
SOAP Progress Note Assessment/Plan: Assessment/Plan: 71 Y F Crohn's disease, s/p SBR for stricture, peritonitis. s/ p abdominal exploration with resection of remote ileocolic anastomosis, open abdomen with multiple abthera wound vac changes in OR, ileostomy, now s/p fascial closure with superficial abdominal wall/incisional wound vac. Vac change by acid tender today. Tube feeds to goal, wean TPN Appreciate beef boner, medicine, and ID input. Off pressors. Continue abx. Possible extubation soon. Seen c Dr. Yee S: Alert O: Laying in bed, comfortable, alert Intubated decreased bases bilaterally RRR Abd softly distended, vac to suction, drain serosanguinous, ileostomy in rlq pink with stool in appliance 11/17/16 12:22 Objective: Vital Signs Temp Pulse Resp BP Pulse Ox 37.5 C 101 H 16 159/95 H 100 11/17/16 12:00 11/17/16 12:00 11/17/16 12:00 11/17/16 12:00 11/17/16 12:00 Laboratory Results 11/17/16 09:30 11/17/16 04:45 11/16/16 11/17/16 11/18/16 05:59 05:59 05:59 Intake Total 2420 2053 Output Total 2215 2260 Balance 205 -207 PT 14.3 SEC (12.0-15.0) 11/15/16 04:10 INR 1.12 (0.83-1.16) 11/15/16 04:10 ICD10 Worksheet Patient Problems: Problems Problem Status Onset Abdominal pain Acute Acute Crohn's disease Acute Abdominal pain, chronic, right lower quadrant Acute Bronchitis Acute Crohns disease Acute Crohns disease of small intestine Acute Intra-abdominal abscess Acute Malnutrition Acute
--- NOTE | 2016-11-17 12:29 | PDINTPN ---
Beater Out Progress Note Assessment/Plan: Assessment: 71 F with Crohns disease admitted 10/30/16 with abdominal pain and eventually underwent SB resection/SUHAIL on 11/04 who developed an acute abdomen on 11/09 requiring emergent surgery. She had a perforated bowel with peritonitis and returned to the ICU extubated but tenuous. She continued to have respiratory distress and her CXR showed diffuse bilateral infiltrates. An attempt at diuresis was unsuccessful and she was re-intubated 11/10/16. * Peritonitis 2/2 bowel perforation at an old anastamosis site (separate from her recent surgery). She is on broad spectrum abx and cultures are growing C ramosum. Currently on ertapenem and fluconazole; Unable to close abdomen today. * Septic shock 2/2 above. Off pressors * Respiratory failure- Source not clear at the moment. Differential includes volume overload/pulmonary edema, aspiration pneumonitis or asp PNA, versus ARDS from septic shock. Her PAP are low and she is responding well to PEEP. Weaning parameters better today than yesterday. * Anemia- Not clearly bleeding but transfused 11/12. Hct stable over the last few days. * Nutrition- started TPN 11/13/16. * Hyperglycemia- Improved Plan: Continue antibiotics. Hold sedation. Probably can extubate. Continue PO meds/steroids. Follow Hgb. 11/17/16 12:29 Subjective: Intubated, alert but not responding to questions. Objective: Vital Signs Temp Pulse Resp BP Pulse Ox 37.5 C 101 H 16 159/95 H 100 11/17/16 12:00 11/17/16 12:00 11/17/16 12:00 11/17/16 12:00 11/17/16 12:00 Laboratory Results 11/17/16 09:30 11/17/16 04:45 11/16/16 11/17/16 11/18/16 05:59 05:59 05:59 Intake Total 2420 2053 Output Total 2215 2260 Balance 205 -207 PT 14.3 SEC (12.0-15.0) 11/15/16 04:10 INR 1.12 (0.83-1.16) 11/15/16 04:10 Laboratory Tests 11/17/16 11:15 pCO2 45 H pO2 88 H Total CO2 30 H ABG pH 7.42 ABG HCO3 28 H ABG O2 Saturation 96 H O2 Concentration % 40 CPAP YES Physical Exam - Physical Exam General Appearance: alert, no apparent distress EENT: normal ENT inspection Neck: normal inspection Respiratory: lungs clear, normal breath sounds Cardiac/Chest: regular rate, rhythm, edema Abdomen: normal bowel sounds, No non-tender (tender to firm palpation, less so than yesterday) Skin: normal color, warm/dry Extremities: non-tender Neuro/Psych: alert, No normal mood/affect, No oriented x 3 ICD10 Worksheet Patient Problems: Problems Problem Status Onset Abdominal pain Acute Acute Crohn's disease Acute Abdominal pain, chronic, right lower quadrant Acute Bronchitis Acute Crohns disease Acute Crohns disease of small intestine Acute Intra-abdominal abscess Acute Malnutrition Acute
[2016-11-17] MEDS: HYDROmorphONE/DILAUDID 1 MG/ML SYR IVP PRN ×2 (14:08→19:33)
--- NOTE | 2016-11-17 16:27 | WOCRNPDOC ---
WOCRN Advanced Assessment Note - Skin Integrity Problem, Advanced Assess Abdomen Surgical Wound/Incision Dressing Type: Black Vac Foam (x1), Wound Vac Dressing Description: Clean/Dry, Intact Closure Description: Sutures Exudate Amount: Scant Exudate Characteristic(s): Serosanguinous Integumentary Issue Intervention: Dressing Changed Kenzie Wound Swelling: Mild Wound Bed Color: [place], Red, Yellow Wound Bed Constitution: Granulation Tissue (40%), Smooth Tissue (50%), Adhered Slough (10%) Wound Edges: Attached Site Odor: None Site Measurement - Head-to-Toe Length X Width X Depth (cm): 23.5x2.3x1 Skin Integrity Problem Comment: Removed with adhesive releaser. Patient though non-verbal at this time did open mouth and say "ow" during dressing change. Patient received 5 mg dilaudid IV which helped. Pubic hair was clipped. Wound cleaned with ns and gauze. Skin prep applied kenzie wound and drape. One piece of medium simplace across wound bed with a second piece at bottom for trac pad. Vac restarted at -125 mm Hg continuous suction. Working with no leaks. Ostomy appliance very close to midline incision. Tape border was trimmed back as much as possible, however there was some drape overlap onto the border. Discussed care with Wound RN Claribel and she will check appliance tuesday to see if patient could use a smaller diameter appliance. Patient not teachable at this time for ostomy care. Findings communicated with Sosa Montalvo, [place] LAMA. [place] INGRAM in room for care.
--- NOTE | 2016-11-17 17:20 | SOAPPROG ---
SOAP Progress Note Assessment/Plan: Assessment: SP SB RESECTION FOR ADHESIVE STRICTURE/ PATH PENDING BUT NO OBVIOUS CROHNS AT SURGERY ABD SOFT WITH BS/ -FLATUS/ AFEBRILE, NONICTERIC CHEST CLEAR/ COR RR CONFUSED TODAY BUT PLEASANT/ DOESNT REMEMBER SURGERY/ CO A ROUGH NITE/ UO OK NEEDS MOBILIZATION Plan:AMBULATE/ ADD TORADOL/ MINIMIZE NARCS 11/06/16 11:06 11/07/16 08:36 still confused/ wound ok/ abd soft/ -flatus/ no bm/ path pending/ cxr basilar atelectasis/ wbc2.7k/ mobilize 11/09/16 13:54 DRAMATIC CHANGE TODAY/ MARKEDLY DISTENDED WITH ACTIVE BS/ MINIMAL FLATUS/ AFEBRILE/ WBC 2.6K WILL CHECK CT AND MOVE TO ICU 11/09/16 17:29 ct shows some free air and lots of ascites/ requiring pressors for bp/ uo diminished/ abd distended and tender risks and options fully discussed with pt and family who wish to proceed with urgent laparotomy 11/11/16 08:58 STABLE ON PEEP AT 10/ CXR BILATERAL FLUFFINESS/ WOUND OK/ LOW GRADE TEMP/ UO MASSIVE WITH DIURESIS/ ABD GOOD/ HCT 26 WOUND VAC CHANGE TODAY/ CONSIDER WOUND FASCIAL CLOSURE 11/11/16 12:31 PATIENT SEEN EARLIER TODAY. AFEBRILE AND STABLE VITAL SIGNS. PLAN IS A WOUND VAC CHANGE IN THE OR. RISKS AND OPTIONS FULLY DISCUSSED WITH THE DAUGHTER WISHES TO PROCEED 11/17/16 17:17 afebrile / vital signs stable/ wound clean with wound VAC change today / ostomy functioning well / abdomen clean rice grader and reel tender with decreased bowel sounds and slight distention / urine output is good / Pelvic JAS drain is putting out some cloudy fluid but the upper drain is putting out minimal serous fluid Unable to speak and mental status is in question but alert and follows the activities in the room / may need a head CT scan Objective: Vital Signs Temp Pulse Resp BP Pulse Ox 37.6 C 99 20 140/73 H 94 11/17/16 16:00 11/17/16 16:00 11/17/16 16:00 11/17/16 16:00 11/17/16 16:00 Laboratory Results 11/17/16 09:30 11/17/16 04:45 11/16/16 11/17/16 11/18/16 05:59 05:59 05:59 Intake Total 2422052 44 Output Total 5973 7210 175 Balance 205 -207 -131 PT 14.3 SEC (12.0-15.0) 11/15/16 04:10 INR 1.12 (0.83-1.16) 11/15/16 04:10 ICD10 Worksheet Patient Problems: Problems Problem Status Onset Abdominal pain Acute Acute Crohn's disease Acute Abdominal pain, chronic, right lower quadrant Acute Bronchitis Acute Crohns disease Acute Crohns disease of small intestine Acute Intra-abdominal abscess Acute Malnutrition Acute
[2016-11-17 17:38] LABS: POTASSIUM 4.7 mEq/L (3.5-5.2)
--- NOTE | 2016-11-17 18:27 | HOSPPROG ---
Hospitalist Progress Note Assessment/Plan: assessment: 71-year-old female presents with acute SBO c/b acute peritonitis, septic shock, acute hypoxic respiratory failure c/b ongoing acute encephalopathy Plan: 1. SBO due to adhesions s/p SUHAIL/SB resection 2. Leaking old ileocolic anastomosis with peritonitis/abd abscess -Clostridium possible organism on culture -s/p OR w/ fluid collection washed out, vac in place -potentially infected material draining from inferior drain, WBC remains elevated, likely e/o ongoing infxn -cont invanz, fluconazole -appreciate ongoing ID consultation -cont monitor CBC 3. Crohn's disease, with chronic immunosuppression, potentially contributing to presentation -s/p stress dose steroids -adjusted back to prednisone 4. Septic shock, evidenced by SBP 84, vLact 4.2, tachycardia/tachypnea/ leukocytosis/clear source of infection, resulting in autonomic dysregulation in setting of infxn -cont empiric Abx -holding on further IVF -monitor WBC 5. Acute hypoxic respiratory failure, evidenced by PaO2 54 and objective tachypnea/respiratory distress requiring reintubation, secondary to either acute volume overload vs. aspiration pneumonia, NOT a complication related to the surgery, infiltrates on CXR -d/w Dr. Roy, we agree that CXR is improving (personally interpreted) and if patient can be weaned from sedation safely, then she can possibly extubate if she protects airway 6. Atelectasis. Acute, present on CXR, will get IS when extubated 7. Encephalopathy. Acute, new problem, further w/u indicated. Evidenced by global brain dysfunction characterized by inability to follow commands, no cooperation and minimal communication, acute change from prior to intubation, likely 2/2 toxic effects of sedation and infxn -get HCT r/o bleed -blinks eyes appropriately in response to questions, but does not track or follow other commands -minimize sedation if possible Diet. TPN, trickle Code. Full PPx. High risk, SCDs, no lovenox 2/2 bleeding at site, initiation of pharm per Dr. Doan Dispo. ADD uncertain, pending stabilization of above Patient remains critically ill w/ high level of medical complexity, high risk of morbidity and/or mortality. Subjective: patient awakens to verbal stim but no other interactiveness Objective: Vital Signs Temp Pulse Resp BP Pulse Ox 37.6 C 98 24 H 134/77 H 93 11/17/16 16:00 11/17/16 18:00 11/17/16 18:00 11/17/16 18:00 11/17/16 18:00 Laboratory Results 11/17/16 09:30 11/17/16 17:20 11/16/16 11/17/16 11/18/16 05:59 05:59 05:59 Intake Total 2420 2052 102 Output Total 2218 6950 1131 Balance 205 -207 -110 PT 14.3 SEC (12.0-15.0) 11/15/16 04:10 INR 1.12 (0.83-1.16) 11/15/16 04:10 - Physical Exam Constitutional: no apparent distress, not in pain, chronically ill appearing, No uncomfortable Eyes: PERRL, anicteric sclera, EOMI Cardiovascular: regular rate and rhythym, no murmur, rub, or gallop, No edema Respiratory: inspiratory crackles, No reduced air movement, No expiratory wheeze , No bronchial breath sounds Gastrointestinal: tenderness (bilat to mod depth palpation), distension (mild), other (drains in place, vac in place), No normoactive bowel sounds (hypoactive bowel sounds), No guarding Neurologic: other (blinks to commands, no other volitional cooperative responsiveness) ICD10 Worksheet Patient Problems: Problems Problem Status Onset Bronchitis Acute Malnutrition Acute Crohns disease Acute Intra-abdominal abscess Acute Abdominal pain, chronic, right lower quadrant Acute Crohns disease of small intestine Acute Abdominal pain Acute Acute Crohn's disease Acute
[2016-11-17] MEDS: ONDANSETRON 4 MG/2 ML VIAL IVP PRN (19:33)
[2016-11-17] MEDS: LORazepam 2 MG/ML INJ IVP PRN (20:31)
[2016-11-17] MEDS: TPN W/ FAMOTIDINE 1 EA BAG IV SCH (20:32)
[2016-11-17] MEDS ORDERED: MELATONIN 3 MG TAB PO SCH (21:00)
[2016-11-18] MEDS: INSULIN REGULAR, HUMAN 100 UNIT/1 ML VIAL STANDARD SC SCH ×4 (00:16→17:46)
[2016-11-18] MEDS: HYDROmorphONE/DILAUDID 1 MG/ML SYR IVP PRN ×2 (04:18→19:43)
[2016-11-18 05:08] LABS: ALANINE AMINOTRANSFERASE 67 IU/L (9-52); ALBUMIN 2.1 g/dL (3.5-5.0); ALKALINE PHOSPHATASE 163 IU/L (38-126); ANION GAP 3 mEq/L (8-16); ASPARTATE AMINOTRANSFERASE 84 IU/L (14-46); BILIRUBIN,TOTAL 0.7 mg/dL (0.1-1.4); CALCIUM 7.6 mg/dL (8.5-10.4); CARBON DIOXIDE 28 mEq/l (22-31); CHLORIDE 104 mEq/L (97-110); CREATININE 0.4 mg/dL (0.6-1.0); GLOMERULAR FILTRATION RATE > 60; GLUCOSE 105 mg/dL (70-100); SODIUM 135 mEq/L (134-144); TOTAL PROTEIN 4.7 g/dL (6.3-8.2)
[2016-11-18 05:13] LABS: BASE EXCESS 3.4 mEq/L (-2.5-2.5); BICARBONATE 27 mEq/L (22-26); MEASURED OXYGEN SATURATION 89 % (92-95); PCO2 38 mmHg (34-38); PO2 58 mmHg (65-75); TCO2 28 mEq/L (23-27)
[2016-11-18 05:23] LABS: ABSOLUTE NRBC COUNT 0.02 10^3/uL (0-0.01); ADD DIFF? YES; ADD MORPH? NO; ATYPICAL LYMPHOCYTE FLAG 0 (0-99); FRAGMENT RBC FLAG 10 (0-99); HEMATOCRIT 29.3 % (38.0-47.0); HEMOGLOBIN 9.9 g/dL (12.6-16.3); LIPEMIA HEMOLYSIS FLAG 90 (0-99); MEAN CELL HEMOGLOBIN CONCENTR. 33.8 g/dL (32.4-36.7); MEAN CELL VOLUME 88.8 fL (81.5-99.8); MEAN PLATELET VOLUME 11.7 fL (8.7-11.7); NRBC-AUTO% 0.1 % (0.0-0.2); PLATELET CLUMPS FLAG 0 (0-99); PLATELET COUNT 383 10^3/uL (150-400); RED CELL DISTRIBUTION WIDTH 16.4 % (11.5-15.2)
[2016-11-18 05:24] LABS: ADD SCAN? NO; LEFT SHIFT FLG 170 (0-99)
--- NOTE | 2016-11-18 05:48 | CPEKG ---
Heart Rate: 113 RR Interval: 531 P-R Interval: 136 QRSD Interval: 74 QT Interval: 316 QTC Interval: 434 P [place]: 40 QRS [place]: 31 T Wave [place]: 56 EKG Severity - OTHERWISE NORMAL ECG - EKG Impression: SINUS TACHYCARDIA Electronically Signed By: Elise Campa 18-Nov-2016 11:51:27
[2016-11-18] MEDS ORDERED: IOPAMIDOL (ISOVUE 370) 100 ML BTL IV ONE (05:51)
--- NOTE | 2016-11-18 05:52 | HOSPPROG ---
Hospitalist Progress Note Assessment/Plan: CROSS COVER EVENT NOTE Called by RN at approximately 530AM for acute desaturation to 70% range on 4L NC , tachycardia and tachypnea. On my assessment, patient appeared encephalopathic , was not able to provide symptom/complaint VS: HR 110 RR 25 BP 90/45 O2 Sat 94% on 15L oxymask Gen: chronically ill appearing CV: tachycardic Resp: diffuse rhonchi bilaterally Abd: midline incision to wound vac drainage; 2 JAS drains with sero-purulent drainage Ext: edema of all four distal extremities Neuro: awake, maintains eye contact; minimal movements of all extremities equally Labs: ABG prior to desat: 7.47 / 38 / 58 / 28 / 89% CBC, BMP noted Impression/Plan: Patient is 71-year-old female presents with acute SBO c/b acute peritonitis, with long hospital course complicated by: septic shock, acute hypoxic respiratory failure requiring intubation and acute encephalopathy. Patient was extubated on 11/17 and, other than ongoing encephalopathy, had tolerated extubation well, was saturating well on 4L via NC. However, this morning at approximately 530am, patient acutely desaturated into the 70% range on 4L, began acutely tachycardic and relatively hypotensive. Stat chest x ray and EKG obtained. EKG reveals sinus tachycardia with new inf q waves. CXR shows bilateral patchy infiltrates, worse from 11/16 cxr. Differential for acute decompensation includes acute PE (pt not on dvt ppx due to concern for bleeding) vs acute fluid overload vs aspiration event. - obtain stat CT angio chest to r/o PE - consider escalation to BIPAP - f/u pulmonary recommendations Olivia Constantino DO Objective: Vital Signs Temp Pulse Resp BP Pulse Ox 37.9 C 107 H 26 H 90/44 L 90 L 11/18/16 05:15 11/18/16 05:15 11/18/16 05:15 11/18/16 05:15 11/18/16 05:15 Laboratory Results 11/18/16 04:20 11/18/16 04:20 11/16/16 11/17/16 11/18/16 05:59 05:59 05:59 Intake Total 2420 2053 1028 Output Total 2215 2260 1138 Balance 205 -207 -110 PT 14.3 SEC (12.0-15.0) 11/15/16 04:10 INR 1.12 (0.83-1.16) 11/15/16 04:10 ICD10 Worksheet Patient Problems: Problems Problem Status Onset Abdominal pain Acute Acute Crohn's disease Acute Abdominal pain, chronic, right lower quadrant Acute Bronchitis Acute Crohns disease Acute Crohns disease of small intestine Acute Intra-abdominal abscess Acute Malnutrition Acute
[2016-11-18 06:02] LABS: PLATELET ESTIMATE ADEQUATE (ADEQ)
[2016-11-18 06:03] LABS: POLYCHROMASIA 1+; TOXIC GRANULATION PRESENT
[2016-11-18] MEDS: FLUCONAZOLE/NaCl 100 ML IV SCH (08:02)
[2016-11-18] MEDS: ERTAPENEM 1 GM in NS 100 ML IV SCH (08:02)
--- NOTE | 2016-11-18 08:37 | SOAPPROG ---
SOAP Progress Note Assessment/Plan: Assessment: 71 yo s/p resection of bowel due to adhesions Later developed leak at original anastomosis/perforated crohns Remains critically ill Now extubated, will track with eyes but does not answer questions. CT head without new intracrainial abnormality CTA negative for PE, has pneumonia Can consider CT abdomen S: Tracks with eyes but does not respond O: Sitting in bed NG with tube feeds Lungs coarse bilaterally Regular rate BS present Ostomy in LUQ with thin output. Inferior drain with thin purulent drainage, superior drain with scant serous drainage WV to suction Plan: 11/05/16 23:21 11/18/16 08:34 Objective: Vital Signs Temp Pulse Resp BP Pulse Ox 38.1 C 108 H 20 127/67 H 94 11/18/16 08:00 11/18/16 08:00 11/18/16 08:00 11/18/16 08:00 11/18/16 08:00 Laboratory Results 11/18/16 04:20 11/18/16 04:20 11/17/16 11/18/16 11/19/16 05:59 05:59 05:59 Intake Total 2052 1658 Output Total 2259 2017 Balance -207 -359 PT 14.3 SEC (12.0-15.0) 11/15/16 04:10 INR 1.12 (0.83-1.16) 11/15/16 04:10 ICD10 Worksheet Patient Problems: Problems Problem Status Onset Abdominal pain Acute Acute Crohn's disease Acute Abdominal pain, chronic, right lower quadrant Acute Bronchitis Acute Crohns disease Acute Crohns disease of small intestine Acute Intra-abdominal abscess Acute Malnutrition Acute
--- NOTE | 2016-11-18 09:29 | SOAPPROG ---
SOAP Progress Note Assessment/Plan: Assessment: 71yo female s/p bowel resection for stricture, multiple washouts, anastomotic leak, wound now closed. History of crohn's . Main issues now are worsening respiratory status possibly secondary to PNA. Altered mental status, encephalopathy. CT head negative for acute process. PE awake, does not follow motor commands O2 mask chest rhonchi B/L abdomen Vac in place, JAS drains one with serous other with exudative Plan: saw pt with Dr Doan, would appreciate neuro consult given change in mental status 11/18/16 09:22 Objective: Vital Signs Temp Pulse Resp BP Pulse Ox 38.1 C 108 H 20 127/67 H 94 11/18/16 08:00 11/18/16 08:00 11/18/16 08:00 11/18/16 08:00 11/18/16 08:00 Laboratory Results 11/18/16 04:20 11/18/16 04:20 11/17/16 11/18/16 11/19/16 05:59 05:59 05:59 Intake Total 2052 1658 Output Total 2259 2017 Balance -207 -359 PT 14.3 SEC (12.0-15.0) 11/15/16 04:10 INR 1.12 (0.83-1.16) 11/15/16 04:10 ICD10 Worksheet Patient Problems: Problems Problem Status Onset Abdominal pain Acute Acute Crohn's disease Acute Abdominal pain, chronic, right lower quadrant Acute Bronchitis Acute Crohns disease Acute Crohns disease of small intestine Acute Intra-abdominal abscess Acute Malnutrition Acute
[2016-11-18 09:30] LABS: MAGNESIUM 2.1 mg/dL (1.6-2.3)
--- NOTE | 2016-11-18 09:47 | SOAPPROG ---
SOAP Progress Note Assessment/Plan: Assessment: SP SB RESECTION FOR ADHESIVE STRICTURE/ PATH PENDING BUT NO OBVIOUS CROHNS AT SURGERY ABD SOFT WITH BS/ -FLATUS/ AFEBRILE, NONICTERIC CHEST CLEAR/ COR RR CONFUSED TODAY BUT PLEASANT/ DOESNT REMEMBER SURGERY/ CO A ROUGH NITE/ UO OK NEEDS MOBILIZATION Plan:AMBULATE/ ADD TORADOL/ MINIMIZE NARCS 11/06/16 11:06 11/07/16 08:36 still confused/ wound ok/ abd soft/ -flatus/ no bm/ path pending/ cxr basilar atelectasis/ wbc2.7k/ mobilize 11/09/16 13:54 DRAMATIC CHANGE TODAY/ MARKEDLY DISTENDED WITH ACTIVE BS/ MINIMAL FLATUS/ AFEBRILE/ WBC 2.6K WILL CHECK CT AND MOVE TO ICU 11/09/16 17:29 ct shows some free air and lots of ascites/ requiring pressors for bp/ uo diminished/ abd distended and tender risks and options fully discussed with pt and family who wish to proceed with urgent laparotomy 11/11/16 08:58 STABLE ON PEEP AT 10/ CXR BILATERAL FLUFFINESS/ WOUND OK/ LOW GRADE TEMP/ UO MASSIVE WITH DIURESIS/ ABD GOOD/ HCT 26 WOUND VAC CHANGE TODAY/ CONSIDER WOUND FASCIAL CLOSURE 11/11/16 12:31 PATIENT SEEN EARLIER TODAY. AFEBRILE AND STABLE VITAL SIGNS. PLAN IS A WOUND VAC CHANGE IN THE OR. RISKS AND OPTIONS FULLY DISCUSSED WITH THE DAUGHTER WISHES TO PROCEED 11/17/16 17:17 afebrile / vital signs stable/ wound clean with wound VAC change today / ostomy functioning well / abdomen benzol still operator with decreased bowel sounds and slight distention / urine output is good / Pelvic JAS drain is putting out some cloudy fluid but the upper drain is putting out minimal serous fluid Unable to speak and mental status is in question but alert and follows the activities in the room / may need a head CT scan 11/18/16 09:45 low-grade temp / still with the non communication problem / wound okay / urine output grade / abdomen is soft and nontender / JAS drainage is still purulence from the pelvis Head CT was negative for any acute problem / chest CT shows bilateral pneumonia and effusion / abdominal CT is pending / patient is a setup for possible new abscess in her abdomen Objective: Vital Signs Temp Pulse Resp BP Pulse Ox 38.1 C 108 H 20 127/67 H 94 11/18/16 08:00 11/18/16 08:00 11/18/16 08:00 11/18/16 08:00 11/18/16 08:00 Laboratory Results 11/18/16 04:20 11/18/16 04:20 11/17/16 11/18/16 11/19/16 05:59 05:59 05:59 Intake Total 20521 Output Total 5026 2017 Balance -207 -273 PT 14.3 SEC (12.0-15.0) 11/15/16 04:10 INR 1.12 (0.83-1.16) 11/15/16 04:10 ICD10 Worksheet Patient Problems: Problems Problem Status Onset Abdominal pain Acute Acute Crohn's disease Acute Abdominal pain, chronic, right lower quadrant Acute Bronchitis Acute Crohns disease Acute Crohns disease of small intestine Acute Intra-abdominal abscess Acute Malnutrition Acute
[2016-11-18] MEDS: MEROPENEM 1 GM in NS 100 ML IV SCH ×3 (10:10→21:50)
[2016-11-18] MEDS: ACETAMINOPHEN 325 MG TAB TUBE PRN (11:03)
[2016-11-18] MEDS: ENOXAPARIN 40 MG/0.4 ML SYR SC SCH (11:03)
[2016-11-18] MEDS: VANCOMYCIN 750 MG in D5W 150 ML IV SCH ×2 (11:03→21:51)
[2016-11-18] MEDS: PREGABALIN 50 MG CAP TUBE SCH ×2 (11:07→21:51)
[2016-11-18] MEDS: predniSONE 5 MG TAB TUBE SCH ×2 (11:08→17:48)
[2016-11-18] MEDS: FLUoxetine 20 MG CAP TUBE SCH (11:08)
[2016-11-18] MEDS: oxyCODONE IR 5 MG TAB TUBE PRN ×2 (11:20→19:44)
--- NOTE | 2016-11-18 11:30 | PDINTPN ---
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 She had a perforated bowel with peritonitis and returned to the ICU extubated but tenuous. She continued to have respiratory distress and her CXR showed diffuse bilateral infiltrates. An attempt at diuresis was unsuccessful and she was re-intubated 11/10/16. * Peritonitis 2/2 bowel perforation at an old anastamosis site (separate from her recent surgery). She is on broad spectrum abx and cultures are growing C ramosum. Currently on ertapenem and fluconazole; Unable to close abdomen today. * Septic shock 2/2 above. Off pressors * Respiratory failure- Extubated. Likely has multifocal pneumonia. RLL atelectasis with probable mucous plugging RLL and RML. * Anemia- Not clearly bleeding but transfused 11/12. Hct stable over the last few days. * Nutrition- started TPN 11/13/16. * Hyperglycemia- Improved Plan: Continue Meropenem, Vanco. Probably bronch due to RLL collapse. Continue PO meds/steroids. Follow Hgb. Increase activity. D/C Ativan. 11/18/16 11:31 Subjective: COnfused, agitated, c/o back pain. Objective: Vital Signs Temp Pulse Resp BP Pulse Ox 38.1 C 106 H 24 H 140/68 H 91 L 11/18/16 08:00 11/18/16 10:00 11/18/16 10:00 11/18/16 10:00 11/18/16 10:00 Laboratory Results 11/18/16 04:20 11/18/16 04:20 11/17/16 11/18/16 11/19/16 05:59 05:59 05:59 Intake Total 2052 1658 Output Total 0 2018 Balance -207 -359 PT 14.3 SEC (12.0-15.0) 11/15/16 04:10 INR 1.12 (0.83-1.16) 11/15/16 04:10 CT Chest: Multiple small infiltrates, complete collapse RLL and partial RML, with occluded airways. Images reviewed. Physical Exam - Physical Exam General Appearance: alert, no apparent distress EENT: normal ENT inspection Neck: normal inspection Respiratory: decreased breath sounds (right base) Cardiac/Chest: regular rate, rhythm, No edema Abdomen: normal bowel sounds, non-tender Skin: normal color, warm/dry Extremities: non-tender Neuro/Psych: alert, No normal mood/affect, No oriented x 3, No motor weakness ICD10 Worksheet Patient Problems: Problems Problem Status Onset Abdominal pain Acute Acute Crohn's disease Acute Abdominal pain, chronic, right lower quadrant Acute Bronchitis Acute Crohns disease Acute Crohns disease of small intestine Acute Intra-abdominal abscess Acute Malnutrition Acute
--- NOTE | 2016-11-18 13:22 | ECHO ---
[id number] + + [address] : : [place] [address] : : [phone] + + Adult Echocardiographic Report + -------+ :Name: DARLEEN RUBIO Jyotsna Date: 11/18/2016 11:40 AM : : Hospital Admission Number: [id number] Locati on: 256: :: 1945 Gender: Female Height: 62 in : :Age: 71 yrs Race: WH Weight: 116 lb : :Reason For Study: R/O Cardiomyopathy : : BSA: 1.5 meter s2 : :History: Post Abdominal surgery, Tachycardia, hypoxia : + -------+ MMode/2D Measurements \T\ Calculations IVSd: 0.65 cm LVIDd: 3.5 cm FS: 43.5 % Ao root diam: 2.2 cm LVPWd: 0.77 cm LVIDs: 2.0 cm EDV(Teich): 49.7 ml ACS: 1.4 cm ESV(Teich): 12.1 ml EF(Teich): 75.7 % Normal Measurement Values: + + :LVIDd (3.5-5.7cm) IVSd (0.6-1.1cm) LVPWd (0.6-1.1cm) Aortic Root (2.0-3.7cm)Left Atrium (1.5-4.0cm): :LV Vol(d) (76-115ml) LV Vol(s) (29-48ml) Ejec Fraction (50-65%)PV Dereje (0.6- 1.2m/s) TV Dereje (0.4-1.0m/s) : :MV E Dereje (0.8-1.0m/s)MV A Dereje (0.3-1.0m/s)LVOT Dereje (0.7-1.2m/s) Asc Ao Dereje ( 0.9-1.8m/s) : + + Doppler Measurements \T\ Calculations MV E max dereje: Ao V2 max: LV V1 max: PA V2 max: 60.7 cm/sec 162.9 cm/sec 121.7 cm/sec 122.2 cm/sec MV A max dereje: Ao max PG: LV V1 max PG: PA max P.7 cm/sec 10.6 mmHg 5.9 mmHg 6.0 mmHg MV E/A: 0.61 TR max dereje: 313.6 cm/sec TR max P.3 mmHg RAP systole: 5.0 mmHg RVSP(TR): 44.3 mmHg Left Ventricle The left ventricle is normal in size. There is normal left ventricular wall thickness. Ejection Fraction = 75%. There is Doppler evidence for diastolic dysfunction. The left ventricle is hyperdynamic. The left ventricular wall motion is normal. Right Ventricle The right ventricle is normal in size and function. Atria The left atrial size is normal. Right atrial size is normal. Mitral Valve The mitral valve is normal in structure and function. There is no evidence of mitral valve prolapse. There is no mitral valve stenosis. There is no mitral regurgitation noted. Tricuspid Valve There is mild tricuspid regurgitation. Right ventricular systolic pressure is 44mmHg. There is Doppler evidence for mild pulmonary hypertension. Aortic Valve The aortic valve is not well visualized. There is no aortic stenosis. There is no aortic insufficiency. Pulmonic Valve The pulmonic valve is not well visualized. There is no pulmonic valvular regurgitation. Great Vessels The aortic root is normal size. Pericardium/Pleural There is no pericardial effusion. Subcostal views are not available due to surgical dressing. Conclusion A complete two-dimensional transthoracic echocardiogram was performed (2D, M-mode, Doppler and color flow Doppler). 1. The left ventricle is normal in size. The left ventricle is hyperdynamic. The Ejection Fraction = 75%. 2. The mitral valve is normal in structure and function. 3. The aortic valve is not well visualized. There is no aortic stenosis. There is no aortic insufficiency. 4. There is no pericardial effusion. 5. Right ventricular systolic pressure is elevated at 44mmHg. Final Reading Physician: Adan Hand MD electronically signed on 11/18/2016 01:21 PM Ordering Physician: Olivia Constantino Performed By: Blake Raphael, CS
[2016-11-18] MEDS ORDERED: LIDOCAINE 1% 300 MG/30 ML SDV MISC ONE (14:56)
[2016-11-18] MEDS ORDERED: LIDOCAINE 2% JELLY 5 ML TUBE TP ONE (14:56)
[2016-11-18] MEDS ORDERED: BENZOCAINE UNIT DOSE SPRAY HURRICAINE MM ONE ×2 (14:56→15:03)
[2016-11-18] MEDS ORDERED: MIDAZOLAM 2 MG/2 ML VIAL ONE ×2 (15:02→15:23)
[2016-11-18] MEDS ORDERED: fentaNYL 100 MCG/2 ML INJ ONE ×2 (15:03→15:22)
[2016-11-18] MEDS ORDERED: LIDOCAINE 1% 300 MG/30 ML SDV ONE (15:04)
[2016-11-18] MEDS ORDERED: LIDOCAINE 2% JELLY 5 ML TUBE ONE (15:04)
[2016-11-18] MEDS ORDERED: fentaNYL 100 MCG/2 ML INJ IVP ONE (15:45)
[2016-11-18] MEDS ORDERED: MIDAZOLAM 2 MG/2 ML VIAL IVP ONE (15:45)
--- NOTE | 2016-11-18 17:44 | GPN ---
[f rep st] PROCEDURE NOTE DATE OF PROCEDURE: 11/18/2016 PROCEDURE: Flexible fiberoptic upper bronchoscopy. REASON FOR THE PROCEDURE: Hypoxemic respiratory failure with occluded airways, probable mucus plugging. PROCEDURE NOTE: The risks and benefits of the procedure were explained to the patient and the patient's daughter, who agreed to proceed. The entire procedure was performed in the intensive care unit with the patient under blood pressure, EKG, and oximetry monitoring. It was my assessment that there was no risk of airborne infection from the procedure. After an appropriate time-out, the patient's oropharynx was anesthetized with topical spray and a bite block was placed between her teeth. The bronchoscope was advanced through the bite block into the vocal cords. There were fairly copious mucopurulent secretions in the posterior pharynx which were suctioned. I then advanced the bronchoscope through the vocal cords into the main trachea, where some scattered mucopurulent secretions were encountered and suctioned. I then decided to proceed to the left-sided airways , which had just scant secretions. On the right, there was a small to moderate amount of secretions, particularly on the right lower lobe, which were suctioned until clear. A small volume lavage was performed with return of cloudy fluid. All airways were clear of secretions at the end of the procedure. The patient tolerated the procedure well. There were no complications apparent at the end of the procedure. The patient received 3 mg of Versed and 100 mcg of fentanyl intravenously for analgesia and sedation. No specimens were sent. /[id number]/MODL MTDD
--- NOTE | 2016-11-18 18:10 | PCMIDPN ---
Assessment/Plan: Assessment: Septic shock and peritonitis-with bacteremia due to Clostridium ramosum. The blood isolate and the peritonitis was covered through this morning with ertapenem and fluconazole. Empirically broadened this morning to meropenem (to cover ? possible pseudomonas) and Vancomycin (to cover resistant gram positives ) as well as continuing fluconazole for yeast coverage. Plan: 1. Continue newly broadened regimen and observe for change. 2. Follow clinical changes including vital signs and leukocytosis. 11/14/16 17:18 11/18/16 23:20 11/18/16 23:22 Subjective: Patient remains in intensive care. No significant improvement in status. Antibiotics were broadened this morning. Early this afternoon patient underwent bronchoscopy where some mucous plugs and secretions were therapeutically aspirated. Objective: Vancomycin # 1 Meropenem # 1 Fluconazole # 6 Vital Signs Temp Pulse Resp BP Pulse Ox 37.5 C 94 14 111/65 95 11/18/16 15:43 11/18/16 15:43 11/18/16 15:43 11/18/16 15:43 11/18/16 15:43 Laboratory Results 11/18/16 04:20 11/18/16 04:20 11/17/16 11/18/16 11/19/16 05:59 05:59 05:59 Intake Total 20529 Output Total 2259 2017 116 Balance -207 -996 89 - Physical Exam General Appearance: WD/WN, no apparent distress, other (poorly interactive) Respiratory: lungs clear, normal breath sounds Cardiac/Chest: regular rate, rhythm, No tachycardia Extremities: non-tender, normal inspection Skin: normal color, warm/dry, No rash ICD10 Worksheet Patient Problems: Problems Problem Status Onset Abdominal pain Acute Acute Crohn's disease Acute Abdominal pain, chronic, right lower quadrant Acute Bronchitis Acute Crohns disease Acute Crohns disease of small intestine Acute Intra-abdominal abscess Acute Malnutrition Acute
--- NOTE | 2016-11-18 19:31 | NEUROPROG ---
Assessment: CC: Altered Mental Status HPI: This 71F patient was initially seen as an inpatient consult on 11/18/16. She has underlying Crohn's disease. She was admitted to [facility] on 11/02/16 for surgery for a thickened area of small bowel. She had this procedure on . 4 days after procedure she worsened and was noted to have free air in her abdomen concerning for breakdown of the anastomosis. On 11/09/16 she underwent ileocolic resection. Following that she was intubated requiring pressors for sepsis from bacteremia. ID was consulted. Pt improved so she was extubated on 11/17/16. At 5:30 am on 11/18/16, she developed acute desturation of 70% and was noted to be confused. STAT head CT and TTE showed no obvious cause of her confusion but chest CT did show b/l pneumonia. Neurology was consulted to evaluate mental status. 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 BP 90/44 P102H RR18 Satting 96% on 5L NC, Temp 37.8C General: Drowsy Eyes: Fundoscopic exam not able to visualize optic disks CV: Heart RRR, no murmur, no carotid bruit Lungs: Clear to auscultation bilaterally, no rhonci or rales Neuro: Patient lying in bed, she will minimally wiggle toes or fingers to command, opens eyes and looks around but does not speak, withdraws to pain in arms/legs weakly, reflexes 1 / 4 globally, tone decreased throughout Labs: 11/18/16- CBC WBC 21.17 Hct 29.3L, CMP BUN 26H Cr 0.4L AST/ALT elevated and alk phos elevated Rads: 11/18/16- Head CT w/o con: old R basal ganglia lacunar infarct, no definite bleed or infarct, mod atrophy, mild CMVD (I personally visualized the images on 11/18/16) 11/18/16- Chest CTA: no PE, RLL atelectasis w/small R pleural effusion, multifocal B/L PNA, no Ao aneurysm or dissection Assessment: 1. Septic Shock from Peritonitis secondary to bowel perforation at an old anastomosis from surgery 11/04/16 2. Recent Pneumonia with respiratory distress 3. History of Crohn's Disease 4. 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 No focal deficits to suggest stroke and brain MRI would require stopping the wound vac which seems to have greater risk than the benefit of obtaining the study. At this time recommend treating infection with antibiotics and pursuing PT/OT. Hopefully, with improvement of her pneumonia and sepsis then she will improve. Plan: -Hold off on brain MRI until no longer using wound vac as benefit of study outweighed by risk of not using wound vac -Agree with antibiotics and PT/OT -Neurology will continue to follow closely Objective: Vital Signs Temp Pulse Resp BP Pulse Ox 37.5 C 90 17 117/67 100 11/18/16 15:43 11/18/16 18:00 11/18/16 18:00 11/18/16 18:00 11/18/16 18:00 Laboratory Results 11/18/16 04:20 11/18/16 04:20 11/17/16 11/18/16 11/19/16 05:59 05:59 05:59 Intake Total 2052 1658 1248 Output Total 2259 2017 116 Balance -207 -359 89 PT 14.3 SEC (12.0-15.0) 11/15/16 04:10 INR 1.12 (0.83-1.16) 11/15/16 04:10 Allergies/Adverse Reactions: fentanyl [Fentanyl] Allergy (Severe, Verified 05/14/14 20:23) WEIGHT LOSS, MEMORY LOSS gabapentin [From Neurontin] Allergy (Severe, Verified 05/14/14 20:23) Rash Penicillins Allergy (Severe, Verified 05/14/14 20:23) SEIZURES Sulfa (Sulfonamide Antibiotics) Allergy (Severe, Verified 05/14/14 20:23) NAUSEA morphine Allergy (Unknown, Verified 05/14/14 20:23) PT BECOMES "MEAN" tramadol [Tramadol] Allergy (Unknown, Verified 05/14/14 20:23) azathioprine [From Imuran] Allergy (Verified 12/01/15 11:22) Rash azathioprine sodium [From Imuran] Allergy (Verified 12/01/15 11:22) Rash budesonide [From Entocort EC] Allergy (Verified 12/01/15 11:24) Rash infliximab [From Remicade] Allergy (Verified 12/01/15 11:23) Itching mesalamine [From Pentasa] Allergy (Verified 12/01/15 11:23) Rash
[2016-11-18] MEDS: MELATONIN 3 MG TAB TUBE SCH (21:51)
[2016-11-18] MEDS: TPN W/ FAMOTIDINE 1 EA BAG IV SCH (22:22)
--- NOTE | 2016-11-18 22:24 | HOSPPROG ---
Hospitalist Progress Note Assessment/Plan: assessment: 71-year-old female presents with acute SBO c/b acute peritonitis, septic shock, acute hypoxic respiratory failure c/b ongoing acute encephalopathy and healthcare assoc pneumonia Plan: 1. SBO due to adhesions s/p SUHAIL/SB resection 2. Leaking old ileocolic anastomosis with peritonitis/abd abscess -Clostridium possible organism on culture -s/p OR w/ fluid collection washed out, vac in place -potentially infected material draining from inferior drain -adjusted to cassidy, fluconazole -appreciate ongoing ID consultation -cont monitor CBC 3. Crohn's disease, with chronic immunosuppression, potentially contributing to presentation -s/p stress dose steroids -adjusted back to prednisone 4. Septic shock, evidenced by SBP 84, vLact 4.2, tachycardia/tachypnea/ leukocytosis/clear source of infection, resulting in autonomic dysregulation in setting of infxn -cont empiric Abx -holding on further IVF -monitor WBC 5. Acute hypoxic respiratory failure, evidenced by PaO2 54 and objective tachypnea/respiratory distress requiring reintubation, secondary suspected HCAP , NOT related to original surgery - cont high flow o2, extubated 6. Atelectasis. Acute, present on CXR, will get IS when extubated 7. Encephalopathy. Acute, evidenced by global brain dysfunction characterized by inability to follow commands, no cooperation and minimal communication, acute change from prior to intubation, likely 2/2 toxic effects of sedation and infxn - HCT w/o bleed - blinks eyes appropriately in response to questions, but does not track or follow other commands - appreciate neuro eval, hold on MRI 8. HCAP. Acute, new problem, further w/u indicated. Worsening resp status, fever , leukocytosis - d/w Dr. Roy, we noted infiltrates on CT (personally interpreted), get sputum cx, bcx - adjusted Abx to cover possible pseudomonas and MRSA w/ cassidy/vanco 9. Chronic pain w/ continuous opiate dependency. 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 Full PPx. High risk, SCDs, no lovenox 2/2 bleeding at site, initiation of pharm per Dr. Doan Dispo. ADD uncertain, pending stabilization of above Subjective: intermittently moving upper ext Objective: Vital Signs Temp Pulse Resp BP Pulse Ox 37.4 C 93 18 126/64 H 99 11/18/16 20:00 11/18/16 20:00 11/18/16 20:00 11/18/16 20:00 11/18/16 20:00 Laboratory Results 11/18/16 04:20 11/18/16 04:20 11/17/16 11/18/16 11/19/16 05:59 05:59 05:59 Intake Total 2052 1658 1248 Output Total 2259 2017 116 Balance -207 -359 89 PT 14.3 SEC (12.0-15.0) 11/15/16 04:10 INR 1.12 (0.83-1.16) 11/15/16 04:10 - Physical Exam Constitutional: chronically ill appearing, uncomfortable, unkempt, No not in pain Cardiovascular: systolic murmur, tachycardia, edema, No irregularly irregular Respiratory: reduced air movement (bilat bases anteriorly), rhonchi (bilat), No expiratory wheeze, No bronchial breath sounds Gastrointestinal: tenderness (bilat to mild depth palp), distension (moderate), other (wound vac in place), No normoactive bowel sounds (hypoactive bowel sounds ), No guarding Neurologic: other (blinks to commands, no volitional motor responses) ICD10 Worksheet Patient Problems: Problems Problem Status Onset Bronchitis Acute Malnutrition Acute Crohns disease Acute Intra-abdominal abscess Acute Abdominal pain, chronic, right lower quadrant Acute Crohns disease of small intestine Acute Abdominal pain Acute Acute Crohn's disease Acute
[2016-11-19] MEDS: oxyCODONE IR 5 MG TAB TUBE PRN ×3 (00:32→17:01)
[2016-11-19] MEDS: HYDROmorphONE/DILAUDID 1 MG/ML SYR IVP PRN ×7 (00:32→20:17)
[2016-11-19] MEDS: INSULIN REGULAR, HUMAN 100 UNIT/1 ML VIAL STANDARD SC SCH ×4 (00:34→17:27)
[2016-11-19 04:55] LABS: ABSOLUTE NRBC COUNT 0.02 10^3/uL (0-0.01); ADD DIFF? YES; ADD MORPH? NO; ADD SCAN? NO; ATYPICAL LYMPHOCYTE FLAG 0 (0-99); FRAGMENT RBC FLAG 10 (0-99); HEMATOCRIT 28.5 % (38.0-47.0); HEMOGLOBIN 9.4 g/dL (12.6-16.3); LEFT SHIFT FLG 80 (0-99); LIPEMIA HEMOLYSIS FLAG 80 (0-99); MEAN CELL HEMOGLOBIN 28.9 pg (27.9-34.1); MEAN CELL VOLUME 87.7 fL (81.5-99.8); MEAN PLATELET VOLUME 11.2 fL (8.7-11.7); NRBC-AUTO% 0.1 % (0.0-0.2); PLATELET CLUMPS FLAG 10 (0-99); PLATELET COUNT 446 10^3/uL (150-400); RED BLOOD CELL COUNT 3.25 10^6/uL (4.18-5.33); RED CELL DISTRIBUTION WIDTH 16.3 % (11.5-15.2)
[2016-11-19 05:12] LABS: ANION GAP 5 mEq/L (8-16); CALCIUM 7.5 mg/dL (8.5-10.4); CARBON DIOXIDE 28 mEq/l (22-31); CHLORIDE 100 mEq/L (97-110); CREATININE 0.4 mg/dL (0.6-1.0); GLOMERULAR FILTRATION RATE > 60; GLUCOSE 100 mg/dL (70-100); POTASSIUM 4.7 mEq/L (3.5-5.2); SODIUM 133 mEq/L (134-144)
[2016-11-19] MEDS: MEROPENEM 1 GM in NS 100 ML IV SCH ×3 (05:36→22:19)
[2016-11-19 06:03] LABS: PLATELET ESTIMATE INCREASED (ADEQ)
[2016-11-19 06:04] LABS: HYPOCHROMIA 1+
[2016-11-19 06:05] LABS: POLYCHROMASIA 1+
[2016-11-19] MEDS: ENOXAPARIN 40 MG/0.4 ML SYR SC SCH (09:00)
[2016-11-19] MEDS: predniSONE 5 MG TAB TUBE SCH ×2 (09:01→17:01)
[2016-11-19] MEDS: FLUoxetine 20 MG CAP TUBE SCH (09:02)
[2016-11-19] MEDS: PREGABALIN 50 MG CAP TUBE SCH ×2 (09:02→20:20)
[2016-11-19] MEDS: VANCOMYCIN 750 MG in D5W 150 ML IV SCH ×2 (09:15→20:21)
--- NOTE | 2016-11-19 13:04 | SOAPPROG ---
SOAP Progress Note Assessment/Plan: Assessment: 71 yo s/p resection of bowel due to adhesions Later developed leak at original anastomosis/perforated crohns Improved Now extubated, talking today WBC still elevated Advance tube feeds Can consider CT abdomen S: Oriented to person and place. O: Sitting in bed NG with tube feeds Lungs coarse bilaterally Regular rate BS present Ostomy in LUQ with thin output. Inferior drain with scant thin purulent drainage, superior drain with scant serous drainage WV to suction Plan: 11/05/16 23:21 11/18/16 08:34 11/19/16 13:02 Objective: Vital Signs Temp Pulse Resp BP Pulse Ox 37.9 C 105 H 19 107/60 92 11/19/16 09:40 11/19/16 09:40 11/19/16 09:40 11/19/16 09:40 11/19/16 11:00 Laboratory Results 11/19/16 04:45 11/19/16 04:45 11/18/16 11/19/16 11/20/16 05:59 05:59 05:59 Intake Total 1658 2411 Output Total 2017 1849 Balance -359 561 PT 14.3 SEC (12.0-15.0) 11/15/16 04:10 INR 1.12 (0.83-1.16) 11/15/16 04:10 ICD10 Worksheet Patient Problems: Problems Problem Status Onset Abdominal pain Acute Acute Crohn's disease Acute Abdominal pain, chronic, right lower quadrant Acute Bronchitis Acute Crohns disease Acute Crohns disease of small intestine Acute Intra-abdominal abscess Acute Malnutrition Acute
[2016-11-19] MEDS: FLUCONAZOLE/NaCl 100 ML IV SCH (15:02)
[2016-11-19] MEDS: ACETAMINOPHEN 325 MG TAB TUBE PRN (15:07)
--- NOTE | 2016-11-19 16:34 | PDINTPN ---
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 She had a perforated bowel with peritonitis and returned to the ICU extubated but tenuous. She continued to have respiratory distress and her CXR showed diffuse bilateral infiltrates. An attempt at diuresis was unsuccessful and she was re-intubated 11/10/16. * Peritonitis 2/2 bowel perforation at an old anastamosis site (separate from her recent surgery). She is on broad spectrum abx and cultures are growing C ramosum. Currently on meropenem and fluconazole; Unable to fully close abdomen. * Septic shock 2/2 above. Off pressors * Respiratory failure- Extubated, oxygen needs reduced. Likely has multifocal pneumonia. S/P bronch 11/18, with purulent secretions. * Anemia- Not clearly bleeding but transfused 11/12. Hct trending down a bit over the last few days. * Nutrition- started TPN 11/13/16. Now on TF at about 50% of goal. * Hyperglycemia- Improved Plan: Continue fluconazole, meropenem, Vanco. Continue PO meds/steroids. Increase TF. Follow Hgb. Increase activity. D/C Ativan. 11/18/16 11:31 11/19/16 16:34 11/19/16 16:35 11/19/16 16:35 Subjective: C/O back pain and confusion. No nausea. Objective: Vital Signs Temp Pulse Resp BP Pulse Ox 38.1 C 89 20 142/67 H 98 11/19/16 14:00 11/19/16 14:00 11/19/16 14:00 11/19/16 14:00 11/19/16 14:00 Laboratory Results 11/19/16 04:45 11/19/16 04:45 11/18/16 11/19/16 11/20/16 05:59 05:59 05:59 Intake Total 1659 2411 Output Total 2017 1849 Balance -359 561 PT 14.3 SEC (12.0-15.0) 11/15/16 04:10 INR 1.12 (0.83-1.16) 11/15/16 04:10 Physical Exam - Physical Exam General Appearance: alert, no apparent distress EENT: normal ENT inspection Neck: normal inspection Respiratory: lungs clear, normal breath sounds Cardiac/Chest: regular rate, rhythm, No edema Abdomen: soft, No normal bowel sounds (diminished), No non-tender (mild tenderness to firm palpation) Skin: normal color, warm/dry Extremities: non-tender Neuro/Psych: alert, normal mood/affect, No oriented x 3 ICD10 Worksheet Patient Problems: Problems Problem Status Onset Abdominal pain Acute Acute Crohn's disease Acute Abdominal pain, chronic, right lower quadrant Acute Bronchitis Acute Crohns disease Acute Crohns disease of small intestine Acute Intra-abdominal abscess Acute Malnutrition Acute
--- NOTE | 2016-11-19 17:03 | PCMIDPN ---
Assessment/Plan: Assessment: Septic shock and peritonitis-with bacteremia due to Clostridium ramosum. Currently covered with vancomycin, meropenem and fluconazole. Fever curve unchanged. Remains with expected leukocytosis given extent of peritonitis. Would expect the patient to continue to have this degree of leukocytosis with slow resolution over the next 1-2 weeks unless recurrent collection occurs within the abdominal or pelvic cavity. Plan: 1. Continue current antibiotic regimen. 2. Follow clinical changes including vital signs and leukocytosis. If these deviate from expected improvement then repeat CT scan would be the initial test looking for development of new collections.. Subjective: Patient is much more alert today. She is working with physical therapy and following commands appropriately. Continues to have low-grade fever elevations up to 38.1 C. Objective: Vancomycin # 2 Meropenem # 2 Fluconazole # 7 Vital Signs Temp Pulse Resp BP Pulse Ox 38.1 C 89 20 142/67 H 98 11/19/16 14:00 11/19/16 14:00 11/19/16 14:00 11/19/16 14:00 11/19/16 14:00 Laboratory Results 11/19/16 04:45 11/19/16 04:45 11/18/16 11/19/16 11/20/16 05:59 05:59 05:59 Intake Total 1658 4511 Output Total 2017 1849 Balance -359 561 - Physical Exam General Appearance: WD/WN, alert, no apparent distress, other (Appears confused and weak.) Respiratory: lungs clear, normal breath sounds, No respiratory distress Cardiac/Chest: regular rate, rhythm, No tachycardia Extremities: non-tender, normal inspection Skin: normal color, warm/dry, No rash Neuro/Psych: alert, confused ICD10 Worksheet Patient Problems: Problems Problem Status Onset Abdominal pain Acute Acute Crohn's disease Acute Abdominal pain, chronic, right lower quadrant Acute Bronchitis Acute Crohns disease Acute Crohns disease of small intestine Acute Intra-abdominal abscess Acute Malnutrition Acute
--- NOTE | 2016-11-19 19:11 | NEUROPROG ---
Assessment: CC: F/U for Altered Mental Status Narrative SUmmary: This 71F patient was initially seen as an inpatient consult on 11/18/16. She has underlying Crohn's disease. She was admitted to [facility] on 11/02/16 for surgery for a thickened area of small bowel. She had this procedure on 11/04/16. 4 days after procedure she worsened and was noted to have free air in her abdomen concerning for breakdown of the anastomosis. On 11/09/16 she underwent ileocolic resection. Following that she was intubated requiring pressors for sepsis from bacteremia. ID was consulted. Pt improved so she was extubated on 11/17/16. At 5:30 am on 11/18/16, she developed acute desturation of 70% and was noted to be confused. STAT head CT and TTE showed no obvious cause of her confusion but chest CT did show b/l pneumonia. Neurology was consulted to evaluate mental status. HPI: F/U on 11/19/16. Pt improved with ability to answer questions (1-2 words), follow simple commands, and move arms a little better. No lateralizing neurologic weakness seen so stroke seems unlikely. 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 Septic Shock from Peritonitis secondary to bowel perforation at an old anastomosis from surgery 11/04/16 2. Recent Pneumonia with respiratory distress 3. History of Crohn's Disease 4. 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 No focal deficits to suggest stroke and brain MRI would require stopping the wound vac which seems to have greater risk than the benefit of obtaining the study. At this time recommend treating infection with antibiotics and pursuing PT/OT. Hopefully, with improvement of her pneumonia and sepsis then she will improve. 5. Critical Illness Myoneuropathy Plan: -Agree with antibiotics and PT/OT -Neurology will sign off but is happy to become re-involved if needed 35 min spent with patient, majority of time spent coordinating her care with nurse to include discussing diagnostic testing. Objective: Vital Signs Temp Pulse Resp BP Pulse Ox 37.8 C 86 20 138/60 H 97 11/19/16 17:06 11/19/16 17:06 11/19/16 17:06 11/19/16 17:06 11/19/16 17:06 Laboratory Results 11/19/16 04:45 11/19/16 04:45 11/18/16 11/19/16 11/20/16 05:59 05:59 05:59 Intake Total 1658 2411 847.1 Output Total 2017 169 2410 Balance -359 561 -1562.9 PT 14.3 SEC (12.0-15.0) 11/15/16 04:10 INR 1.12 (0.83-1.16) 11/15/16 04:10 Allergies/Adverse Reactions: fentanyl [Fentanyl] Allergy (Severe, Verified 05/14/14 20:23) WEIGHT LOSS, MEMORY LOSS gabapentin [From Neurontin] Allergy (Severe, Verified 05/14/14 20:23) Rash Penicillins Allergy (Severe, Verified 05/14/14 20:23) SEIZURES Sulfa (Sulfonamide Antibiotics) Allergy (Severe, Verified 05/14/14 20:23) NAUSEA morphine Allergy (Unknown, Verified 05/14/14 20:23) PT BECOMES "MEAN" tramadol [Tramadol] Allergy (Unknown, Verified 05/14/14 20:23) azathioprine [From Imuran] Allergy (Verified 12/01/15 11:22) Rash azathioprine sodium [From Imuran] Allergy (Verified 12/01/15 11:22) Rash budesonide [From Entocort EC] Allergy (Verified 12/01/15 11:24) Rash infliximab [From Remicade] Allergy (Verified 12/01/15 11:23) Itching mesalamine [From Pentasa] Allergy (Verified 12/01/15 11:23) Rash
--- NOTE | 2016-11-19 19:46 | SOAPPROG ---
SOAP Progress Note Assessment/Plan: Assessment: SP SB RESECTION FOR ADHESIVE STRICTURE/ PATH PENDING BUT NO OBVIOUS CROHNS AT SURGERY ABD SOFT WITH BS/ -FLATUS/ AFEBRILE, NONICTERIC CHEST CLEAR/ COR RR CONFUSED TODAY BUT PLEASANT/ DOESNT REMEMBER SURGERY/ CO A ROUGH NITE/ UO OK NEEDS MOBILIZATION Plan:AMBULATE/ ADD TORADOL/ MINIMIZE NARCS 11/06/16 11:06 11/07/16 08:36 still confused/ wound ok/ abd soft/ -flatus/ no bm/ path pending/ cxr basilar atelectasis/ wbc2.7k/ mobilize 11/09/16 13:54 DRAMATIC CHANGE TODAY/ MARKEDLY DISTENDED WITH ACTIVE BS/ MINIMAL FLATUS/ AFEBRILE/ WBC 2.6K WILL CHECK CT AND MOVE TO ICU 11/09/16 17:29 ct shows some free air and lots of ascites/ requiring pressors for bp/ uo diminished/ abd distended and tender risks and options fully discussed with pt and family who wish to proceed with urgent laparotomy 11/11/16 08:58 STABLE ON PEEP AT 10/ CXR BILATERAL FLUFFINESS/ WOUND OK/ LOW GRADE TEMP/ UO MASSIVE WITH DIURESIS/ ABD GOOD/ HCT 26 WOUND VAC CHANGE TODAY/ CONSIDER WOUND FASCIAL CLOSURE 11/11/16 12:31 PATIENT SEEN EARLIER TODAY. AFEBRILE AND STABLE VITAL SIGNS. PLAN IS A WOUND VAC CHANGE IN THE OR. RISKS AND OPTIONS FULLY DISCUSSED WITH THE DAUGHTER WISHES TO PROCEED 11/17/16 17:17 afebrile / vital signs stable/ wound clean with wound VAC change today / ostomy functioning well / abdomen distillery miller with decreased bowel sounds and slight distention / urine output is good / Pelvic JAS drain is putting out some cloudy fluid but the upper drain is putting out minimal serous fluid Unable to speak and mental status is in question but alert and follows the activities in the room / may need a head CT scan 11/18/16 09:45 low-grade temp / still with the non communication problem / wound okay / urine output grade / abdomen is soft and nontender / JAS drainage is still purulence from the pelvis Head CT was negative for any acute problem / chest CT shows bilateral pneumonia and effusion / abdominal CT is pending / patient is a setup for possible new abscess in her abdomen 11/19/16 19:44 AFEBRILE/ MENTAL STATUS IMPROVED/ WOUND OKAY / OSTOMY FUNCTIONING WELL/ TOLERATING SLOW TO FEEDS / ABDOMEN IS SOFT AND VAGUELY TENDER / DRAINAGE DECREASED / PLAN IS TO SLOWLY ADVANCE THE TUBE FEEDS / SHE MAY NEED FOLLOW-UP CT SCAN IF SHE GETS SICKER Objective: Vital Signs Temp Pulse Resp BP Pulse Ox 37.8 C 86 20 138/60 H 97 11/19/16 17:06 11/19/16 17:06 11/19/16 17:06 11/19/16 17:06 11/19/16 17:06 Laboratory Results 11/19/16 04:45 11/19/16 04:45 11/18/16 11/19/16 11/20/16 05:59 05:59 05:59 Intake Total 1658 2411 847.1 Output Total 2017 612 2410 Balance -359 561 -1562.9 PT 14.3 SEC (12.0-15.0) 11/15/16 04:10 INR 1.12 (0.83-1.16) 11/15/16 04:10 ICD10 Worksheet Patient Problems: Problems Problem Status Onset Abdominal pain Acute Acute Crohn's disease Acute Abdominal pain, chronic, right lower quadrant Acute Bronchitis Acute Crohns disease Acute Crohns disease of small intestine Acute Intra-abdominal abscess Acute Malnutrition Acute
[2016-11-19] MEDS: TPN W/ FAMOTIDINE 1 EA BAG IV SCH (20:20)
[2016-11-19] MEDS: MELATONIN 3 MG TAB TUBE SCH (20:20)
--- NOTE | 2016-11-19 21:15 | HOSPPROG ---
Hospitalist Progress Note Assessment/Plan: assessment: 71-year-old female presents with acute SBO requiring SUHAIL/SB resection c/b anastomotic leak and acute peritonitis, septic shock, acute hypoxic respiratory failure, and possible healthcare assoc pneumonia Plan: 1. SBO due to adhesions s/p SUHAIL/SB resection by Dr. Yee 11/04 2. Leaking old ileocolic anastomosis with peritonitis/abd abscess -Clostridium possible organism on culture -s/p repeat OR w/ fluid collection washed out, vac in place -potentially infected material draining from inferior drain, drainage somewhat purulent -cont cassidy, fluconazole -cont monitor CBC -on team rounds we agreed that the likely cause of her ongoing leukocytosis and mild fever is intra-abdominal infxn, and, if significantly worsening, would get abd CT to eval for discreet fluid collection 3. Crohn's disease, with chronic immunosuppression, potentially contributing stricture on presentation -s/p stress dose steroids -adjusted back to prednisone 4. Septic shock, resolved 5. Acute hypoxic respiratory failure, secondary suspected HCAP, NOT related to original surgery - cont high flow o2, extubated 6. Atelectasis. Acute, present on CXR, IS 7. Encephalopathy. Acute, likely 2/2 toxic effects of sedation and infxn -improving today w/ ability to follow commands and verbally respond -remains below baseline 8. Possible HCAP. PNA noted on chest CT in context of worsening resp status, rising WBC, fever, already on ertapenem -d/w Dr. Roy, purulent secretions suctioned from bronch w/o culture given that initial secretions were from posterior pharynx and contamination was possible -d/w Dr. Knox, cont current Abx to cover possible pseudomonas and MRSA w/ cassidy /vanco, will de-escalate the vanco if/when improving 9. Chronic pain w/ continuous opiate dependency. High home opiate requirements, increasing PO oxy IR and uptitrate if needed for pain -home requirement is 15mg q6 Diet. Increase TF rate to 25/hr, cont TPN Code. Full PPx. High risk, SCDs, no lovenox 2/2 bleeding at site, initiation of pharm per Dr. Doan Dispo. ADD uncertain, pending stabilization of above Subjective: patient reports she is in pain Objective: Vital Signs Temp Pulse Resp BP Pulse Ox 37.3 C 91 20 142/52 H 99 11/19/16 20:00 11/19/16 20:00 11/19/16 20:00 11/19/16 20:00 11/19/16 20:00 Laboratory Results 11/19/16 04:45 11/19/16 04:45 11/18/16 11/19/16 11/20/16 05:59 05:59 05:59 Intake Total 9 2411 847.1 Output Total 20170 2860 Balance -359 561 -2012.9 PT 14.3 SEC (12.0-15.0) 11/15/16 04:10 INR 1.12 (0.83-1.16) 11/15/16 04:10 - Time Spent With Patient Time Spent with Patient: greater than 35 minutes Time Spent with Patient: Greater than 35 minutes spent on this patients care, greater than 50% of time spent counseling, educating, and coordinating care regarding the above mentioned plan. - Physical Exam Constitutional: chronically ill appearing, uncomfortable, No no apparent distress (moderate distress), No not in pain Cardiovascular: tachycardia, No systolic murmur, No edema Respiratory: rhonchi (bilat), No expiratory wheeze, No bronchial breath sounds Gastrointestinal: tenderness (diffusely throughout to moderate depth palpation) , distension (mild), other (hypoactive bowel sounds, two drains in place, central wound vac) Neurologic: other (following some commands, motor strength 4/5 bilat hand warp drawer, moving feet spontaneously but not on command) Psychiatric: encephalopathic ICD10 Worksheet Patient Problems: Problems Problem Status Onset Abdominal pain Acute Acute Crohn's disease Acute Abdominal pain, chronic, right lower quadrant Acute Bronchitis Acute Crohns disease Acute Crohns disease of small intestine Acute Intra-abdominal abscess Acute Malnutrition Acute
[2016-11-20] MEDS: INSULIN REGULAR, HUMAN 100 UNIT/1 ML VIAL STANDARD SC SCH ×4 (00:24→18:34)
[2016-11-20] MEDS: HYDROmorphONE/DILAUDID 1 MG/ML SYR IVP PRN ×3 (00:57→05:59)
[2016-11-20] MEDS: oxyCODONE IR 5 MG TAB TUBE PRN ×3 (02:14→19:15)
[2016-11-20] MEDS: ONDANSETRON 4 MG/2 ML VIAL IVP PRN (02:16)
[2016-11-20] MEDS: MEROPENEM 1 GM in NS 100 ML IV SCH ×3 (05:19→21:21)
[2016-11-20 05:47] LABS: ANION GAP 8 mEq/L (8-16); CALCIUM 7.4 mg/dL (8.5-10.4); CARBON DIOXIDE 25 mEq/l (22-31); CHLORIDE 98 mEq/L (97-110); CREATININE 0.4 mg/dL (0.6-1.0); GLOMERULAR FILTRATION RATE > 60; GLUCOSE 121 mg/dL (70-100); SODIUM 131 mEq/L (134-144)
[2016-11-20 05:54] LABS: % IMMATURE GRANULYOCYTES 1.4 % (0.0-1.1); ABSOLUTE IMMATURE GRANULOCYTES 0.27 10^3/uL (0.00-0.10); ADD DIFF? NO; ADD MORPH? NO; ADD SCAN? YES; ATYPICAL LYMPHOCYTE FLAG 0 (0-99); FRAGMENT RBC FLAG 10 (0-99); HEMATOCRIT 28.4 % (38.0-47.0); HEMOGLOBIN 9.7 g/dL (12.6-16.3); LEFT SHIFT FLG 70 (0-99); LIPEMIA HEMOLYSIS FLAG 90 (0-99); MEAN CELL HEMOGLOBIN 29.6 pg (27.9-34.1); MEAN CELL HEMOGLOBIN CONCENTR. 34.2 g/dL (32.4-36.7); MEAN CELL VOLUME 86.6 fL (81.5-99.8); MEAN PLATELET VOLUME 11.1 fL (8.7-11.7); PLATELET CLUMPS FLAG 20 (0-99); PLATELET COUNT 464 10^3/uL (150-400); RED BLOOD CELL COUNT 3.28 10^6/uL (4.18-5.33)
[2016-11-20 06:48] LABS: SCAN POSITIVE
[2016-11-20 06:54] LABS: HYPOCHROMIA 1+; PLATELET ESTIMATE INCREASED (ADEQ); POLYCHROMASIA 1+
--- NOTE | 2016-11-20 07:53 | SOAPPROG ---
SOAP Progress Note Assessment/Plan: Assessment: 71 yo s/p resection of bowel due to adhesions Later developed leak at original anastomosis/perforated crohns Passed swallow. Regular diet with supervision If mental status worsens, we can remove wound vac to get MRI If concern for intrabdominal process, can get CT abdomen S: Pulled NG O: Required assist of 2 to move from chair to bed Lungs decreased bilaterally Regular rate BS present Ostomy in LUQ with thin output. Inferior drain with scant thin purulent drainage, superior drain with scant serous drainage WV to suction Plan: 11/05/16 23:21 11/18/16 08:34 11/19/16 13:02 11/20/16 07:52 11/20/16 13:39 Objective: Vital Signs Temp Pulse Resp BP Pulse Ox 37.5 C 89 14 137/85 H 97 11/20/16 04:00 11/20/16 04:00 11/20/16 04:00 11/20/16 04:00 11/20/16 00:00 Laboratory Results 11/20/16 05:15 11/20/16 05:15 11/19/16 11/20/16 11/21/16 05:59 05:59 05:59 Intake Total 2411 2140.1 Output Total 1850 4355 Balance 561 -2214.9 PT 14.3 SEC (12.0-15.0) 11/15/16 04:10 INR 1.12 (0.83-1.16) 11/15/16 04:10 ICD10 Worksheet Patient Problems: Problems Problem Status Onset Abdominal pain Acute Acute Crohn's disease Acute Abdominal pain, chronic, right lower quadrant Acute Bronchitis Acute Crohns disease Acute Crohns disease of small intestine Acute Intra-abdominal abscess Acute Malnutrition Acute
[2016-11-20] MEDS: PREGABALIN 50 MG CAP TUBE SCH ×2 (08:55→21:22)
[2016-11-20] MEDS: FLUoxetine 20 MG CAP TUBE SCH (08:55)
[2016-11-20] MEDS: predniSONE 5 MG TAB TUBE SCH ×2 (08:55→19:15)
[2016-11-20] MEDS: VANCOMYCIN 750 MG in D5W 150 ML IV SCH ×2 (08:55→13:26)
[2016-11-20] MEDS: ENOXAPARIN 40 MG/0.4 ML SYR SC SCH (08:55)
--- NOTE | 2016-11-20 10:36 | HOSPPROG ---
Hospitalist Progress Note Assessment/Plan: * SBO due to adhesions s/p SUHAIL/SB resection by Dr. Yee 11/04 * Leaking old ileocolic anastomosis with peritonitis/abd abscess -Clostridium possible organism on culture -s/p repeat OR w/ fluid collection washed out, vac in place -potentially infected material draining from inferior drain, drainage somewhat purulent -cont cassidy, fluconazole -cont monitor CBC -consider CT scan abdomen pelvis if continued fever and leukocytosis * Crohn's disease, with chronic immunosuppression, potentially contributing stricture on presentation -s/p stress dose steroids -adjusted back to prednisone * Septic shock, resolved * Acute hypoxic respiratory failure, secondary suspected HCAP, NOT related to original surgery * cont high flow o2, extubated * acute encephalopathy * Uncertain cause but probably due to acute illness and being in the ICU * Considering MRI if not better * Adjusting pain medicine * Healthcare associated pneumonia * On meropenem and vancomycin * Id following * Chronic pain w/ continuous opiate dependency. High home opiate requirements, increasing PO oxy IR and uptitrate if needed for pain -home requirement is 15mg q6 * nutrition * Increase tube feeds to goal discontinue TPN Subjective: Still confused. Moaning in pain Objective: Vital Signs Temp Pulse Resp BP Pulse Ox 37.4 C 94 16 160/78 H 94 11/20/16 08:00 11/20/16 08:00 11/20/16 08:00 11/20/16 08:00 11/20/16 08:00 Laboratory Results 11/20/16 05:15 11/20/16 05:15 11/19/16 11/20/16 11/21/16 05:59 05:59 05:59 Intake Total 2411 2140.1 Output Total 1850 4355 Balance 561 -2214.9 PT 14.3 SEC (12.0-15.0) 11/15/16 04:10 INR 1.12 (0.83-1.16) 11/15/16 04:10 Discussed with pulmonology Tele personally viewed interpreted normal sinus rhythm - Physical Exam Constitutional: no apparent distress, appears nourished, not in pain Eyes: anicteric sclera, EOMI Ears, Nose, Mouth, Throat: moist mucous membranes, hearing normal Cardiovascular: regular rate and rhythym, no murmur, rub, or gallop Respiratory: no respiratory distress, no rales or rhonchi, clear to auscultation Gastrointestinal: normoactive bowel sounds, tenderness (Mild), distension Skin: warm Neurologic: other (Not very interactive. Possibly slight left sided weakness), No AAOx3 ICD10 Worksheet Patient Problems: Problems Problem Status Onset Abdominal pain Acute Acute Crohn's disease Acute Abdominal pain, chronic, right lower quadrant Acute Bronchitis Acute Crohns disease Acute Crohns disease of small intestine Acute Intra-abdominal abscess Acute Malnutrition Acute
--- NOTE | 2016-11-20 12:17 | PDINTPN ---
Maintenance Department Technician Progress Note Assessment/Plan: Assessment: 71 F with Crohns disease admitted 10/30/16 with abdominal pain and eventually underwent SB resection/SUHAIL on 11/04 who developed an acute abdomen on 11/09 requiring emergent surgery. She had a perforated bowel with peritonitis and returned to the ICU extubated but tenuous. She continued to have respiratory distress and her CXR showed diffuse bilateral infiltrates. An attempt at diuresis was unsuccessful and she was re-intubated 11/10/16. * Peritonitis 2/2 bowel perforation at an old anastamosis site (separate from her recent surgery). She is on broad spectrum abx and cultures are growing C ramosum. Currently on meropenem and fluconazole; Unable to fully close abdomen. * Septic shock 2/2 above. Off pressors * Respiratory failure- Extubated, oxygen needs reduced to 0-2 liters/minute. Likely has multifocal pneumonia. S/P bronch 11/18, with purulent secretions. * Anemia- Not clearly bleeding but transfused 11/12. Hct stable past few days. * Nutrition- started TPN 11/13/16. Now on TF at about 50% of goal. * Hyperglycemia- Improved Plan: Continue fluconazole, meropenem, Vanco. Continue PO meds/steroids. Increase TF, hopefully can stop TPN soon. Follow Hgb. Increase activity. 11/20/16 12:17 Subjective: Not reliably answering questions, but denies pain at this time. Objective: Vital Signs Temp Pulse Resp BP Pulse Ox 37.4 C 94 16 160/78 H 94 11/20/16 08:00 11/20/16 08:00 11/20/16 08:00 11/20/16 08:00 11/20/16 08:00 Laboratory Results 11/20/16 05:15 11/20/16 05:15 11/19/16 11/20/16 11/21/16 05:59 05:59 05:59 Intake Total 2411 2140.1 Output Total 1850 4355 Balance 561 -2214.9 PT 14.3 SEC (12.0-15.0) 11/15/16 04:10 INR 1.12 (0.83-1.16) 11/15/16 04:10 Physical Exam - Physical Exam General Appearance: alert EENT: normal ENT inspection Neck: normal inspection Respiratory: normal breath sounds, No respiratory distress Cardiac/Chest: regular rate, rhythm, No edema Abdomen: normal bowel sounds, non-tender Skin: normal color, warm/dry Extremities: normal inspection Neuro/Psych: alert, No normal mood/affect, No oriented x 3, No motor weakness ICD10 Worksheet Patient Problems: Problems Problem Status Onset Abdominal pain Acute Acute Crohn's disease Acute Abdominal pain, chronic, right lower quadrant Acute Bronchitis Acute Crohns disease Acute Crohns disease of small intestine Acute Intra-abdominal abscess Acute Malnutrition Acute
[2016-11-20] MEDS: LIDOCAINE 5% 1 EA PATCH TD SCH (13:22)
[2016-11-20] MEDS: FLUCONAZOLE/NaCl 100 ML IV SCH (13:27)
[2016-11-20] MEDS ORDERED: VANCOMYCIN HCL/NORMAL SALINE 250 ML IV SCH (13:30)
--- NOTE | 2016-11-20 14:11 | PCMIDPN ---
Assessment/Plan: 1. Peritonitis status post anastomotic leak in the setting of Crohn's disease: Patient is on broad-spectrum therapy with vancomycin, meropenem, and fluconazole. Previous to that, she had been on ertapenem and fluconazole alone. Antibiotics broadened by the hospitalist service given low-grade fevers and persistent leukocytosis. No evidence of resistant g positives, although patient did not have a bronch sample sent for culture at the time of this procedure 2 days ago. That being said, her respiratory status is quite stable. Will discontinue vancomycin and continue meropenem and fluconazole as is. If low-grade fevers and leukocytosis continue, would pursue CT scan of the abdomen and pelvis 1st, as outlined by my colleague, Dr. Knox. Subjective: Much better today. Passed her swallow evaluation. No cough, oxygenating well. Objective: T-max 37.9degrees Vancomycin 1 g IV q.12 hours day 3 Meropenem 1 g IV q.8 hours day 3. ( antibiotics day 12, previously received 9 days of ertapenem) Fluconazole 200 mg daily day 8 Vital Signs Temp Pulse Resp BP Pulse Ox 37.4 C 86 16 148/76 H 98 11/20/16 08:00 11/20/16 12:00 11/20/16 12:00 11/20/16 12:00 11/20/16 12:00 Laboratory Results 11/20/16 05:15 11/20/16 05:15 11/19/16 11/20/16 11/21/16 05:59 05:59 05:59 Intake Total 2411 2140.1 Output Total 1850 5565 Balance 561 -2214.9 November 18 blood cultures x2 negative Blood cultures November 09 with Clostridium ramosum - Physical Exam General Appearance: alert, no apparent distress, cachetic EENT: pharynx normal, No thrush Respiratory: lungs clear Cardiac/Chest: regular rate, rhythm Abdomen: other ( ileostomy bag with gas, wound VAC looks fine. No surrounding erythema. Minimal tenderness to palpation. ) Skin: No rash ICD10 Worksheet Patient Problems: Problems Problem Status Onset Abdominal pain Acute Acute Crohn's disease Acute Abdominal pain, chronic, right lower quadrant Acute Bronchitis Acute Crohns disease Acute Crohns disease of small intestine Acute Intra-abdominal abscess Acute Malnutrition Acute
[2016-11-20] MEDS: PATCH REMOVAL 1 EA PATCH TD SCH (19:01)
[2016-11-20] MEDS: MELATONIN 3 MG TAB TUBE SCH (21:21)
[2016-11-21 04:42] LABS: % IMMATURE GRANULYOCYTES 0.9 % (0.0-1.1); ADD DIFF? NO; ADD MORPH? NO; ADD SCAN? NO; ATYPICAL LYMPHOCYTE FLAG 0 (0-99); FRAGMENT RBC FLAG 10 (0-99); HEMATOCRIT 28.5 % (38.0-47.0); HEMOGLOBIN 9.6 g/dL (12.6-16.3); LEFT SHIFT FLG 20 (0-99); LIPEMIA HEMOLYSIS FLAG 80 (0-99); MEAN CELL HEMOGLOBIN 28.6 pg (27.9-34.1); MEAN CELL HEMOGLOBIN CONCENTR. 33.7 g/dL (32.4-36.7); MEAN CELL VOLUME 84.8 fL (81.5-99.8); MEAN PLATELET VOLUME 10.9 fL (8.7-11.7); PLATELET CLUMPS FLAG 10 (0-99); PLATELET COUNT 520 10^3/uL (150-400); RED BLOOD CELL COUNT 3.36 10^6/uL (4.18-5.33); RED CELL DISTRIBUTION WIDTH 15.9 % (11.5-15.2)
[2016-11-21 04:56] LABS: ALANINE AMINOTRANSFERASE 73 IU/L (9-52); ALBUMIN 2.5 g/dL (3.5-5.0); ALKALINE PHOSPHATASE 187 IU/L (38-126); ANION GAP 6 mEq/L (8-16); ASPARTATE AMINOTRANSFERASE 66 IU/L (14-46); BILIRUBIN,TOTAL 0.9 mg/dL (0.1-1.4); CALCIUM 7.9 mg/dL (8.5-10.4); CARBON DIOXIDE 26 mEq/l (22-31); CHLORIDE 99 mEq/L (97-110); CREATININE 0.4 mg/dL (0.6-1.0); GLOMERULAR FILTRATION RATE > 60; GLUCOSE 78 mg/dL (70-100); POTASSIUM 3.9 mEq/L (3.5-5.2); SODIUM 131 mEq/L (134-144); TOTAL PROTEIN 5.2 g/dL (6.3-8.2)
[2016-11-21] MEDS: INSULIN REGULAR, HUMAN 100 UNIT/1 ML VIAL STANDARD SC SCH ×3 (05:45→17:57)
[2016-11-21] MEDS: MEROPENEM 1 GM in NS 100 ML IV SCH ×3 (05:52→20:55)
--- NOTE | 2016-11-21 08:10 | SOAPPROG ---
SOAP Progress Note Assessment/Plan: Assessment: 71 yo s/p resection of bowel due to adhesions Later developed leak at original anastomosis/perforated crohns Passed swallow. Regular diet with supervision If mental status worsens, we can remove wound vac to get MRI WBC persistently elevated. Can get CT abdomen S: Said food tasted good O: Sitting in bed, nodding appropriately but not talking Lungs decreased bilaterally Regular rate BS present Ostomy in LUQ with thin output. Inferior drain with scant thin purulent drainage, superior drain with scant serous drainage WV to suction Abdomen is soft Plan: 11/05/16 23:21 11/18/16 08:34 11/19/16 13:02 11/20/16 07:52 11/20/16 13:39 11/21/16 08:08 Objective: Vital Signs Temp Pulse Resp BP Pulse Ox 37.2 C 75 18 144/63 H 100 11/21/16 03:59 11/21/16 03:59 11/21/16 03:59 11/21/16 03:59 11/21/16 03:59 Laboratory Results 11/21/16 04:15 11/21/16 04:15 11/20/16 11/21/16 11/22/16 05:59 05:59 05:59 Intake Total 2140.1 1440 Output Total 4355 3420 Balance -2214.9 -1979 PT 14.3 SEC (12.0-15.0) 11/15/16 04:10 INR 1.12 (0.83-1.16) 11/15/16 04:10 ICD10 Worksheet Patient Problems: Problems Problem Status Onset Abdominal pain Acute Acute Crohn's disease Acute Abdominal pain, chronic, right lower quadrant Acute Bronchitis Acute Crohns disease Acute Crohns disease of small intestine Acute Intra-abdominal abscess Acute Malnutrition Acute
[2016-11-21] MEDS: ENOXAPARIN 40 MG/0.4 ML SYR SC SCH (08:55)
[2016-11-21] MEDS: PREGABALIN 50 MG CAP TUBE SCH ×2 (08:55→20:55)
[2016-11-21] MEDS: predniSONE 5 MG TAB TUBE SCH ×2 (08:55→18:00)
[2016-11-21] MEDS: FLUoxetine 20 MG CAP TUBE SCH (08:55)
[2016-11-21] MEDS: LIDOCAINE 5% 1 EA PATCH TD SCH (08:56)
--- NOTE | 2016-11-21 09:20 | WOCRNPDOC ---
WOCRN Advanced Assessment Note - Skin Integrity Problem, Advanced Assess Abdomen Surgical Wound/Incision Dressing Type: Black Vac Foam (2 pieces removed), Wound Vac Dressing Description: Intact Closure Description: Retention Sutures (visible at wound base) Exudate Amount: Minimal Exudate Color: Reddish/Yellow Exudate Characteristic(s): Cloudy, Serosanguinous Integumentary Issue Intervention: Dressing Changed Wound Bed Color: Red Wound Bed Constitution: Granulation Tissue Site Odor: None Site Measurement - Head-to-Toe Length X Width X Depth (cm): [id number] Skin Integrity Problem Comment: Previous wound vac black foam dressing removed. Intact retention sutures in wound base. Red, granulating tissue noted throughout , more exudative in the inferior aspect of wound where some scant cloudy drainage was observed. Of concern to nursing is the ostomy appliance, which is very close to this midline incision. Upon my assessment, ostomy appliance was intact, and no effluent was observed under the adhesive or leaking onto midline dressing. 2 1/, 2-piece appliance intact, though it has to be trimmed along the medial aspect in order to get a seal on the wound vac. Vac dressing reapplied to midline, 2 pieces of black Simplace w/ trac pad at inferior aspect , set to 125mmHg low, continuous suction, no leaks. Wound care will follow up with patient on Tuesday, 11/22.
[2016-11-21] MEDS ORDERED: IOPAMIDOL (ISOVUE-300) 100 ML BTL ONE (09:33)
--- NOTE | 2016-11-21 09:58 | HOSPPROG ---
Hospitalist Progress Note Assessment/Plan: * SBO due to adhesions s/p SUHAIL/SB resection by Dr. Yee 11/04 * Leaking old ileocolic anastomosis with peritonitis/abd abscess * Clostridium possible organism on culture * s/p repeat OR w/ fluid collection washed out, vac in place * potentially infected material draining from inferior drain, drainage somewhat purulent * cont cassidy, fluconazole * CT scan today due to persistent leukocytosis * Crohn's disease, with chronic immunosuppression, potentially contributing stricture on presentation -s/p stress dose steroids -adjusted back to prednisone * Septic shock, resolved * Acute hypoxic respiratory failure, secondary suspected HCAP, NOT related to original surgery * cont high flow o2, extubated * acute encephalopathy * Uncertain cause but probably due to acute illness and being in the ICU * Getting better * Healthcare associated pneumonia * Resolving * Chronic pain w/ continuous opiate dependency. High home opiate requirements, increasing PO oxy IR and uptitrate if needed for pain -home requirement is 15mg q6 * nutrition * On oral Subjective: Much more conversive. Quite fatigued with any type of exertion Objective: Vital Signs Temp Pulse Resp BP Pulse Ox 37.0 C 86 18 143/89 H 97 11/21/16 08:00 11/21/16 08:00 11/21/16 08:00 11/21/16 08:00 11/21/16 08:00 Laboratory Results 11/21/16 04:15 11/21/16 04:15 11/20/16 11/21/16 11/22/16 05:59 05:59 05:59 Intake Total 2140.1 1440 Output Total 4355 3420 Balance -4.9 -1979 PT 14.3 SEC (12.0-15.0) 11/15/16 04:10 INR 1.12 (0.83-1.16) 11/15/16 04:10 Discussed with Pulmonary - Physical Exam Constitutional: no apparent distress, appears nourished, not in pain Eyes: anicteric sclera, EOMI Ears, Nose, Mouth, Throat: moist mucous membranes, hearing normal Cardiovascular: regular rate and rhythym, no murmur, rub, or gallop Respiratory: no respiratory distress, no rales or rhonchi, clear to auscultation Gastrointestinal: normoactive bowel sounds, tenderness (Mild) Skin: warm Psychiatric: interacting appropriately, not anxious, not encephalopathic, thought process linear ICD10 Worksheet Patient Problems: Problems Problem Status Onset Abdominal pain Acute Acute Crohn's disease Acute Abdominal pain, chronic, right lower quadrant Acute Bronchitis Acute Crohns disease Acute Crohns disease of small intestine Acute Intra-abdominal abscess Acute Malnutrition Acute
[2016-11-21] MEDS: ONDANSETRON 4 MG/2 ML VIAL IVP PRN (11:03)
--- NOTE | 2016-11-21 11:23 | PDINTPN ---
Veterinary Surgeon Progress Note Assessment/Plan: Assessment: 71 F with Crohns disease admitted 10/30/16 with abdominal pain and eventually underwent SB resection/SUHAIL on 11/04 who developed an acute abdomen on 11/09 requiring emergent surgery. She had a perforated bowel with peritonitis and returned to the ICU extubated but tenuous. She continued to have respiratory distress and her CXR showed diffuse bilateral infiltrates. An attempt at diuresis was unsuccessful and she was re-intubated 11/10/16. * Peritonitis 2/2 bowel perforation at an old anastamosis site (separate from her recent surgery). She is on broad spectrum abx and cultures are growing C ramosum. Currently on meropenem and fluconazole; Unable to fully close abdomen. WBC continues to trend up. * Septic shock 2/2 above. Off pressors * Respiratory failure- Extubated, oxygen needs reduced to 0-2 liters/minute. May have multifocal pneumonia. S/P bronch 11/18, with purulent secretions. * Anemia- Not clearly bleeding but transfused 11/12. Hct stable past few days. * Nutrition- Taking some PO, but appetite poor. * Hyperglycemia- Improved * Delerium: Improved a bit, but still disoriented. Plan: Continue fluconazole, meropenem, Vanco. Continue PO meds, low-dose steroids (chronic). CT Abdomen today. Follow Hgb. Increase activity. Probably can transfer to floor. 11/21/16 11:21 Subjective: Confused, but denies pain. Poor appetite. Objective: Vital Signs Temp Pulse Resp BP Pulse Ox 37.0 C 86 18 143/89 H 97 11/21/16 08:00 11/21/16 08:00 11/21/16 08:00 11/21/16 08:00 11/21/16 08:00 Laboratory Results 11/21/16 04:15 11/21/16 04:15 11/20/16 11/21/16 11/22/16 05:59 05:59 05:59 Intake Total 2140.1 1440 Output Total 4355 3420 Balance -2214.9 -1980 PT 14.3 SEC (12.0-15.0) 11/15/16 04:10 INR 1.12 (0.83-1.16) 11/15/16 04:10 Physical Exam - Physical Exam General Appearance: alert, no apparent distress EENT: normal ENT inspection Neck: normal inspection Respiratory: lungs clear, normal breath sounds Cardiac/Chest: regular rate, rhythm, No edema Abdomen: normal bowel sounds, soft, No non-tender (mild tenderness to firm palpation) Skin: normal color, warm/dry Extremities: normal inspection Neuro/Psych: alert, No normal mood/affect (flat), No oriented x 3 ICD10 Worksheet Patient Problems: Problems Problem Status Onset Abdominal pain Acute Acute Crohn's disease Acute Abdominal pain, chronic, right lower quadrant Acute Bronchitis Acute Crohns disease Acute Crohns disease of small intestine Acute Intra-abdominal abscess Acute Malnutrition Acute
--- NOTE | 2016-11-21 15:37 | PCMIDPN ---
Assessment/Plan: 1. Peritonitis status post anastomotic leak in the setting of Crohn's disease: Persistent leukocytosis after her 2nd surgery-- would continue same antibiotics meropenem and fluconazole. Vancomycin was discontinued by me yesterday. I am mindful of the fact that we are not covering MRSA or Enterococcus with this particular regimen, but I do not feel that a change in her antibiotic regimen is warranted at this time. Continue to follow her clinically, and hopefully her white blood cell count will start to fall. No obvious drainable focus on CT of the abdomen done today. Subjective: much more interactive with me today. Talking. Told me that Skip is the president. much more alert and aware. Objective: Meropenem 1 g IV q.8 hours day 4. (Antibiotics day 13) Fluconazole 200 mg daily day 9 line T-max 37.5degrees Vital Signs Temp Pulse Resp BP Pulse Ox 37.5 C 101 H 18 144/90 H 95 11/21/16 12:00 11/21/16 12:00 11/21/16 12:00 11/21/16 12:00 11/21/16 12:00 Microbiology 11/16/16 10:30 Blood Culture - Final Blood Laboratory Results 11/21/16 04:15 11/21/16 04:15 11/20/16 11/21/16 11/22/16 05:59 05:59 05:59 Intake Total 2140.1 1440 Output Total 4355 3420 Balance -2214.9 -1980 blood cultures 525 no growth - Physical Exam General Appearance: alert, no apparent distress, cachetic EENT: pharynx normal, No scleral icterus, No thrush Respiratory: lungs clear Cardiac/Chest: regular rate, rhythm Abdomen: other ( wound VAC in place. Margins are not red. [address], and ileostomy bag with dark brown thin fluid.) Skin: No rash ICD10 Worksheet Patient Problems: Problems Problem Status Onset Abdominal pain Acute Acute Crohn's disease Acute Abdominal pain, chronic, right lower quadrant Acute Bronchitis Acute Crohns disease Acute Crohns disease of small intestine Acute Intra-abdominal abscess Acute Malnutrition Acute
[2016-11-21] MEDS: FLUCONAZOLE/NaCl 100 ML IV SCH (16:05)
[2016-11-21] MEDS: oxyCODONE IR 5 MG TAB TUBE PRN (21:10)
[2016-11-21] MEDS: MELATONIN 3 MG TAB TUBE SCH (21:29)
[2016-11-21] MEDS: PATCH REMOVAL 1 EA PATCH TD SCH (21:29)
[2016-11-22] MEDS: oxyCODONE IR 5 MG TAB TUBE PRN ×3 (00:44→20:36)
[2016-11-22] MEDS: INSULIN REGULAR, HUMAN 100 UNIT/1 ML VIAL STANDARD SC SCH ×5 (02:24→23:59)
[2016-11-22] MEDS: MEROPENEM 1 GM in NS 100 ML IV SCH ×3 (06:35→22:08)
[2016-11-22 06:51] LABS: % IMMATURE GRANULYOCYTES 0.6 % (0.0-1.1); ADD DIFF? NO; ADD MORPH? NO; ADD SCAN? NO; ATYPICAL LYMPHOCYTE FLAG 10 (0-99); FRAGMENT RBC FLAG 10 (0-99); HEMATOCRIT 28.9 % (38.0-47.0); HEMOGLOBIN 9.8 g/dL (12.6-16.3); LEFT SHIFT FLG 30 (0-99); LIPEMIA HEMOLYSIS FLAG 90 (0-99); MEAN CELL HEMOGLOBIN 29.2 pg (27.9-34.1); MEAN CELL HEMOGLOBIN CONCENTR. 33.9 g/dL (32.4-36.7); MEAN PLATELET VOLUME 10.6 fL (8.7-11.7); PLATELET CLUMPS FLAG 0 (0-99); PLATELET COUNT 593 10^3/uL (150-400); RED BLOOD CELL COUNT 3.36 10^6/uL (4.18-5.33); RED CELL DISTRIBUTION WIDTH 15.9 % (11.5-15.2)
[2016-11-22 07:02] LABS: INR 1.22 (0.83-1.16); PROTIME(PATIENT) 15.4 SEC (12.0-15.0)
[2016-11-22 07:03] LABS: APTT 36.5 SEC (23.0-38.0)
[2016-11-22 07:09] LABS: ALANINE AMINOTRANSFERASE 79 IU/L (9-52); ALBUMIN 2.7 g/dL (3.5-5.0); ALKALINE PHOSPHATASE 228 IU/L (38-126); ANION GAP 10 mEq/L (8-16); ASPARTATE AMINOTRANSFERASE 72 IU/L (14-46); BILIRUBIN,TOTAL 0.9 mg/dL (0.1-1.4); CALCIUM 8.4 mg/dL (8.5-10.4); CARBON DIOXIDE 24 mEq/l (22-31); CHLORIDE 98 mEq/L (97-110); CREATININE 0.4 mg/dL (0.6-1.0); GLOMERULAR FILTRATION RATE > 60; GLUCOSE 73 mg/dL (70-100); MAGNESIUM 2.1 mg/dL (1.6-2.3); SODIUM 132 mEq/L (134-144); TOTAL PROTEIN 5.8 g/dL (6.3-8.2); TRIGLYCERIDE 209 mg/dL (35-135)
[2016-11-22] MEDS: ONDANSETRON 4 MG/2 ML VIAL IVP PRN ×2 (08:30→12:44)
[2016-11-22] MEDS: PREGABALIN 50 MG CAP TUBE SCH ×2 (08:30→20:36)
[2016-11-22] MEDS: FLUoxetine 20 MG CAP TUBE SCH (08:30)
[2016-11-22] MEDS: ENOXAPARIN 40 MG/0.4 ML SYR SC SCH (08:31)
[2016-11-22] MEDS: predniSONE 5 MG TAB TUBE SCH ×2 (08:31→20:36)
[2016-11-22] MEDS: LIDOCAINE 5% 1 EA PATCH TD SCH (08:31)
--- NOTE | 2016-11-22 11:17 | HOSPPROG ---
Hospitalist Progress Note Assessment/Plan: * SBO due to adhesions s/p SUHAIL/SB resection by Dr. Yee 11/04 * Leaking old ileocolic anastomosis with peritonitis/abd abscess * Clostridium possible organism on culture * s/p repeat OR w/ fluid collection washed out, vac in place * CT scan with small fluid collections although I am not sure if this is amenable to drainage * cont cassidy, fluconazole * Leukocytosis better today * Crohn's disease, with chronic immunosuppression, potentially contributing stricture on presentation -s/p stress dose steroids -adjusted back to prednisone * Septic shock, resolved * Acute hypoxic respiratory failure, secondary suspected HCAP, NOT related to original surgery * cont high flow o2, extubated * acute encephalopathy * Uncertain cause but probably due to acute illness and being in the ICU * Getting better * Healthcare associated pneumonia * Resolving * Chronic pain w/ continuous opiate dependency. High home opiate requirements, increasing PO oxy IR and uptitrate if needed for pain -home requirement is 15mg q6 * nutrition * On oral Subjective: No new complaints. Denies pain Objective: Vital Signs Temp Pulse Resp BP Pulse Ox 37 C 89 18 137/69 H 96 11/22/16 08:00 11/22/16 08:00 11/22/16 08:00 11/22/16 08:00 11/22/16 08:00 Microbiology 11/16/16 22:00 Blood Culture - Final Blood 11/16/16 10:30 Blood Culture - Final Blood Laboratory Results 11/22/16 06:40 11/22/16 06:40 11/21/16 11/22/16 11/23/16 05:59 05:59 05:59 Intake Total 1440 648 Output Total 3420 3660 800 Balance -1980 -3012 -800 PT 15.4 SEC (12.0-15.0) H 11/22/16 06:40 INR 1.22 (0.83-1.16) H 11/22/16 06:40 CT scan abdomen pelvis reviewed and summarized Discussed with Infectious Disease - Physical Exam Constitutional: no apparent distress, appears nourished, not in pain Eyes: anicteric sclera, EOMI Ears, Nose, Mouth, Throat: moist mucous membranes, hearing normal Cardiovascular: regular rate and rhythym, no murmur, rub, or gallop Respiratory: no respiratory distress, no rales or rhonchi, clear to auscultation Gastrointestinal: normoactive bowel sounds, soft, non-tender abdomen, other ( Ileostomy) Skin: warm Neurologic: AAOx3 Psychiatric: interacting appropriately, not anxious, not encephalopathic, thought process linear ICD10 Worksheet Patient Problems: Problems Problem Status Onset Abdominal pain Acute Acute Crohn's disease Acute Abdominal pain, chronic, right lower quadrant Acute Bronchitis Acute Crohns disease Acute Crohns disease of small intestine Acute Intra-abdominal abscess Acute Malnutrition Acute
--- NOTE | 2016-11-22 11:21 | PCMIDPN ---
Assessment/Plan: 1. Peritonitis status post anastomotic leak in the setting of Crohn's disease: White blood cell count down today. No new recommendations other than changing fluconazole to Micafungin as outlined in 2. continue supportive care. As outlined in previous notes, ertapenem changed to meropenem by hospitalist service, which we have left as is. I discontinued vancomycin 2 days ago as no evidence of resistant g positives. 2. Elevated liver function tests: Query secondary to history of TPN, but could be exacerbated by fluconazole. Will change to Micafungin and follow. 11/22/16 11:22 Subjective: No significant overnight events. Remains quite deconditioned. Does not know year, but continues to know that Skip is president. Has minimal abdominal discomfort. No nausea or vomiting. Objective: Meropenem 1 g IV q.8 hours day 5 (antibiotics day 14) Fluconazole 200 mg daily day 10 T-max 37.6degrees Vital Signs Temp Pulse Resp BP Pulse Ox 37 C 89 18 137/69 H 96 11/22/16 08:00 11/22/16 08:00 11/22/16 08:00 11/22/16 08:00 11/22/16 08:00 Microbiology 11/16/16 22:00 Blood Culture - Final Blood 11/16/16 10:30 Blood Culture - Final Blood Laboratory Results 11/22/16 06:40 11/22/16 06:40 11/21/16 11/22/16 11/23/16 05:59 05:59 05:59 Intake Total 1440 648 Output Total 3420 3660 800 Balance -1979 -3012 -[address] scan of the abdomen and pelvis yesterday shows multiple scattered fluid collections, but they are small, and not particularly amenable to Drainage - Physical Exam General Appearance: cachetic EENT: pharynx normal, No thrush Respiratory: lungs clear Abdomen: other ( wound VAC in place. Margins are fine. ileostomy bag in place. Stoma pink. 2 drains right lower abdomen are empty. Her abdomen is still fairly tender. Not distended.) Skin: No rash ICD10 Worksheet Patient Problems: Problems Problem Status Onset Abdominal pain Acute Acute Crohn's disease Acute Abdominal pain, chronic, right lower quadrant Acute Bronchitis Acute Crohns disease Acute Crohns disease of small intestine Acute Intra-abdominal abscess Acute Malnutrition Acute
[2016-11-22] MEDS: MICAFUNGIN NA 100 MG in NS 100 ML IV SCH (11:40)
--- NOTE | 2016-11-22 15:19 | WOCRNPDOC ---
WOCRN Advanced Assessment Note - Skin Integrity Problem, Advanced Assess Abdomen Surgical Wound/Incision Dressing Type: Black Vac Foam (x2), Wound Vac Dressing Description: Clean/Dry, Intact Closure Description: Retention Sutures Exudate Amount: Scant Exudate Characteristic(s): Serosanguinous Integumentary Issue Intervention: Dressing Changed Christiano Wound Tissue: Erythema Christiano Wound Swelling: Mild Wound Bed Color: Red, Yellow Wound Bed Constitution: Granulation Tissue (70%), Smooth Tissue (30%) Wound Edges: Epithelizing Site Measurement - Head-to-Toe Length X Width X Depth (cm): 19.7x1.8x1 Skin Integrity Problem Comment: Cleaned with ns and gauze. Skin prep christiano wound and drape. Had to cut back tape border on ileostomy quite a bit to fit drape down. One piece of small simplace foam placed on wound bed. Vac set to suction - 125 mm Hg continuous and working with no leaks. Rolly ZAVALA in room for final portion of vac placement. Next vac change Wed.
--- NOTE | 2016-11-22 16:46 | SOAPPROG ---
SOAP Progress Note Assessment/Plan: Assessment: 71 yo s/p resection of bowel due to adhesions Later developed leak at original anastomosis/perforated crohns Passed swallow. Regular diet with supervision CT abdomen with multiple small collections, too small to drain Severe deconditioning S: Tolerating ensure O: Sitting in bed, pleasant, says uncomfortable in bed Lungs decreased bilaterally Regular rate BS present Ostomy in LUQ with thin output. Inferior drain with scant thin purulent drainage, superior drain with scant serous drainage WV to suction Abdomen is soft Plan: 11/05/16 23:21 11/18/16 08:34 11/19/16 13:02 11/20/16 07:52 11/20/16 13:39 11/21/16 08:08 11/22/16 16:45 Objective: Vital Signs Temp Pulse Resp BP Pulse Ox 36.7 C 90 20 139/79 H 92 11/22/16 15:28 11/22/16 15:28 11/22/16 15:28 11/22/16 15:28 11/22/16 15:28 Microbiology 11/16/16 22:00 Blood Culture - Final Blood 11/16/16 10:30 Blood Culture - Final Blood Laboratory Results 11/22/16 06:40 11/22/16 06:40 11/21/16 11/22/16 11/23/16 05:59 05:59 05:59 Intake Total 1440 648 Output Total 3420 3660 800 Balance -1980 -3012 -800 PT 15.4 SEC (12.0-15.0) H 11/22/16 06:40 INR 1.22 (0.83-1.16) H 11/22/16 06:40 ICD10 Worksheet Patient Problems: Problems Problem Status Onset Abdominal pain Acute Acute Crohn's disease Acute Abdominal pain, chronic, right lower quadrant Acute Bronchitis Acute Crohns disease Acute Crohns disease of small intestine Acute Intra-abdominal abscess Acute Malnutrition Acute
[2016-11-22] MEDS: MELATONIN 3 MG TAB TUBE SCH (20:36)
[2016-11-22] MEDS: PATCH REMOVAL 1 EA PATCH TD SCH (20:47)
[2016-11-22] MEDS: ACETAMINOPHEN 325 MG TAB PO PRN (23:50)
[2016-11-23 05:04] LABS: % IMMATURE GRANULYOCYTES 0.7 % (0.0-1.1); ADD DIFF? NO; ADD MORPH? NO; ADD SCAN? NO; ATYPICAL LYMPHOCYTE FLAG 20 (0-99); FRAGMENT RBC FLAG 10 (0-99); HEMOGLOBIN 9.9 g/dL (12.6-16.3); LEFT SHIFT FLG 10 (0-99); LIPEMIA HEMOLYSIS FLAG 80 (0-99); MEAN CELL HEMOGLOBIN 28.7 pg (27.9-34.1); MEAN PLATELET VOLUME 10.8 fL (8.7-11.7); PLATELET CLUMPS FLAG 0 (0-99); PLATELET COUNT 666 10^3/uL (150-400); RED BLOOD CELL COUNT 3.45 10^6/uL (4.18-5.33)
[2016-11-23] MEDS: MEROPENEM 1 GM in NS 100 ML IV SCH ×3 (05:10→21:50)
[2016-11-23 05:20] LABS: ALANINE AMINOTRANSFERASE 73 IU/L (9-52); ALBUMIN 2.8 g/dL (3.5-5.0); ALKALINE PHOSPHATASE 194 IU/L (38-126); ANION GAP 9 mEq/L (8-16); ASPARTATE AMINOTRANSFERASE 59 IU/L (14-46); BILIRUBIN,TOTAL 0.7 mg/dL (0.1-1.4); CALCIUM 8.9 mg/dL (8.5-10.4); CARBON DIOXIDE 28 mEq/l (22-31); CHLORIDE 98 mEq/L (97-110); CREATININE 0.6 mg/dL (0.6-1.0); GLOMERULAR FILTRATION RATE > 60; GLUCOSE 118 mg/dL (70-100); POTASSIUM 4.3 mEq/L (3.5-5.2); SODIUM 135 mEq/L (134-144); TOTAL PROTEIN 5.9 g/dL (6.3-8.2)
[2016-11-23] MEDS: INSULIN REGULAR, HUMAN 100 UNIT/1 ML VIAL STANDARD SC SCH ×2 (06:12→15:51)
[2016-11-23] MEDS: FLUoxetine 20 MG CAP TUBE SCH (09:18)
[2016-11-23] MEDS: predniSONE 5 MG TAB TUBE SCH (09:20)
[2016-11-23] MEDS: PREGABALIN 50 MG CAP TUBE SCH (09:20)
[2016-11-23] MEDS: ENOXAPARIN 40 MG/0.4 ML SYR SC SCH (09:21)
[2016-11-23] MEDS: MICAFUNGIN NA 100 MG in NS 100 ML IV SCH (09:23)
[2016-11-23] MEDS: LIDOCAINE 5% 1 EA PATCH TD SCH (09:34)
--- NOTE | 2016-11-23 13:09 | HOSPPROG ---
Hospitalist Progress Note Assessment/Plan: * SBO due to adhesions s/p SUHAIL/SB resection by Dr. Yee 11/04 * Leaking old ileocolic anastomosis with peritonitis/abd abscess * Clostridium possible organism on culture * s/p repeat OR w/ fluid collection washed out, vac in place * CT scan with small fluid collections although I am not sure if this is amenable to drainage * cont cassidy, fluconazole switched to micofungin * Leukocytosis better today * elevated liver function tests * Possibly due to fluconazole * Will monitor off now that she is off * * Crohn's disease, with chronic immunosuppression, potentially contributing stricture on presentation -s/p stress dose steroids -adjusted back to prednisone * Septic shock, resolved * Acute hypoxic respiratory failure, secondary suspected HCAP, NOT related to original surgery * cont high flow o2, extubated * acute encephalopathy * Uncertain cause but probably due to acute illness and being in the ICU * Getting better * Healthcare associated pneumonia * Resolving * Chronic pain w/ continuous opiate dependency. High home opiate requirements, increasing PO oxy IR and uptitrate if needed for pain -home requirement is 15mg q6 * nutrition * On oral Subjective: Making more progress with physical therapy today Objective: Vital Signs Temp Pulse Resp BP Pulse Ox 36.5 C 98 18 104/70 96 11/23/16 11:37 11/23/16 11:37 11/23/16 11:37 11/23/16 11:37 11/23/16 11:37 Microbiology 11/16/16 22:00 Blood Culture - Final Blood Laboratory Results 11/23/16 04:44 11/23/16 04:44 11/22/16 11/23/16 11/24/16 05:59 05:59 05:59 Intake Total 648 500 Output Total 3660 4363 700 Balance -3012 -2193 -700 PT 15.4 SEC (12.0-15.0) H 11/22/16 06:40 INR 1.22 (0.83-1.16) H 11/22/16 06:40 - Physical Exam Constitutional: no apparent distress, appears nourished, not in pain Eyes: anicteric sclera, EOMI Ears, Nose, Mouth, Throat: moist mucous membranes, hearing normal Cardiovascular: regular rate and rhythym, no murmur, rub, or gallop Respiratory: no respiratory distress, no rales or rhonchi Gastrointestinal: normoactive bowel sounds, soft, non-tender abdomen, no palpable masses Skin: warm Neurologic: AAOx3 Psychiatric: interacting appropriately, not anxious, not encephalopathic, thought process linear ICD10 Worksheet Patient Problems: Problems Problem Status Onset Abdominal pain Acute Acute Crohn's disease Acute Abdominal pain, chronic, right lower quadrant Acute Bronchitis Acute Crohns disease Acute Crohns disease of small intestine Acute Intra-abdominal abscess Acute Malnutrition Acute
--- NOTE | 2016-11-23 13:49 | SOAPPROG ---
SOAP Progress Note Assessment/Plan: Assessment: SP SB RESECTION FOR ADHESIVE STRICTURE/ PATH PENDING BUT NO OBVIOUS CROHNS AT SURGERY ABD SOFT WITH BS/ -FLATUS/ AFEBRILE, NONICTERIC CHEST CLEAR/ COR RR CONFUSED TODAY BUT PLEASANT/ DOESNT REMEMBER SURGERY/ CO A ROUGH NITE/ UO OK NEEDS MOBILIZATION Plan:AMBULATE/ ADD TORADOL/ MINIMIZE NARCS 11/06/16 11:06 11/07/16 08:36 still confused/ wound ok/ abd soft/ -flatus/ no bm/ path pending/ cxr basilar atelectasis/ wbc2.7k/ mobilize 11/09/16 13:54 DRAMATIC CHANGE TODAY/ MARKEDLY DISTENDED WITH ACTIVE BS/ MINIMAL FLATUS/ AFEBRILE/ WBC 2.6K WILL CHECK CT AND MOVE TO ICU 11/09/16 17:29 ct shows some free air and lots of ascites/ requiring pressors for bp/ uo diminished/ abd distended and tender risks and options fully discussed with pt and family who wish to proceed with urgent laparotomy 11/11/16 08:58 STABLE ON PEEP AT 10/ CXR BILATERAL FLUFFINESS/ WOUND OK/ LOW GRADE TEMP/ UO MASSIVE WITH DIURESIS/ ABD GOOD/ HCT 26 WOUND VAC CHANGE TODAY/ CONSIDER WOUND FASCIAL CLOSURE 11/11/16 12:31 PATIENT SEEN EARLIER TODAY. AFEBRILE AND STABLE VITAL SIGNS. PLAN IS A WOUND VAC CHANGE IN THE OR. RISKS AND OPTIONS FULLY DISCUSSED WITH THE DAUGHTER WISHES TO PROCEED 11/17/16 17:17 afebrile / vital signs stable/ wound clean with wound VAC change today / ostomy functioning well / abdomen ammonia distiller with decreased bowel sounds and slight distention / urine output is good / Pelvic JAS drain is putting out some cloudy fluid but the upper drain is putting out minimal serous fluid Unable to speak and mental status is in question but alert and follows the activities in the room / may need a head CT scan 11/18/16 09:45 low-grade temp / still with the non communication problem / wound okay / urine output grade / abdomen is soft and nontender / JAS drainage is still purulence from the pelvis Head CT was negative for any acute problem / chest CT shows bilateral pneumonia and effusion / abdominal CT is pending / patient is a setup for possible new abscess in her abdomen 11/19/16 19:44 AFEBRILE/ MENTAL STATUS IMPROVED/ WOUND OKAY / OSTOMY FUNCTIONING WELL/ TOLERATING SLOW TO FEEDS / ABDOMEN IS SOFT AND VAGUELY TENDER / DRAINAGE DECREASED / PLAN IS TO SLOWLY ADVANCE THE TUBE FEEDS / SHE MAY NEED FOLLOW-UP CT SCAN IF SHE GETS SICKER 11/23/16 13:47 afebrile/ ostomy ok/ wound ok/ uo adequate/ wbc down to 14k/ abd soft,minimally tender/ probably can dc vac soon Objective: Vital Signs Temp Pulse Resp BP Pulse Ox 36.5 C 98 18 104/70 96 11/23/16 11:37 11/23/16 11:37 11/23/16 11:37 11/23/16 11:37 11/23/16 11:37 Laboratory Results 11/23/16 04:44 11/23/16 04:44 11/22/16 11/23/16 11/24/16 05:59 05:59 05:59 Intake Total 648 500 Output Total 3660 2693 950 [facility] -3012 -2193 -950 PT 15.4 SEC (12.0-15.0) H 11/22/16 06:40 INR 1.22 (0.83-1.16) H 11/22/16 06:40 ICD10 Worksheet Patient Problems: Problems Problem Status Onset Abdominal pain Acute Acute Crohn's disease Acute Abdominal pain, chronic, right lower quadrant Acute Bronchitis Acute Crohns disease Acute Crohns disease of small intestine Acute Intra-abdominal abscess Acute Malnutrition Acute
--- NOTE | 2016-11-23 14:19 | PCMIDPN ---
Assessment/Plan: Assessment/Plan: 1. Septic shock secondary to Interloop abscess/peritonitis secondary related to anastomotic leak - s/p wash out x 4 (11/09, 11/11, 11/13, 11/15) - Currently on merem, micafungin. Switched to micafungin due to rising LFT's -Recently with leukocytosis, now improving. -Continue therapy for now. 2. Clostridium bacteremia: - secondary to above. - f/u blood cx from 11/16, adn 11/18 ngtd Meds merem 1g q8- 11/18/16 micafungin 100mg daily - 11/22/16 s/p invanz, fluconazole. Subjective: Afebrile. awake. denies sob, cough. continues with abd pain. wound vac present. colostomy. Objective: Vital Signs Temp Pulse Resp BP Pulse Ox 36.5 C 98 18 104/70 96 11/23/16 11:37 11/23/16 11:37 11/23/16 11:37 11/23/16 11:37 11/23/16 11:37 Laboratory Results 11/23/16 04:44 11/23/16 04:44 11/22/16 11/23/16 11/24/16 05:59 05:59 05:59 Intake Total 648 500 Output Total 3660 4923 351 [facility] -3012 -2193 -950 - Physical Exam General Appearance: alert, no apparent distress Respiratory: lungs clear Cardiac/Chest: regular rate, rhythm Extremities: No swelling Abdomen: normal bowel sounds, soft, other (colostomy. wound vac noted.), No distended, No guarding Pelvic Exam: au Skin: No erythema ICD10 Worksheet Patient Problems: Problems Problem Status Onset Abdominal pain Acute Acute Crohn's disease Acute Abdominal pain, chronic, right lower quadrant Acute Bronchitis Acute Crohns disease Acute Crohns disease of small intestine Acute Intra-abdominal abscess Acute Malnutrition Acute
[2016-11-23] MEDS: oxyCODONE IR 5 MG TAB TUBE PRN ×2 (14:49)
[2016-11-23] MEDS: predniSONE 5 MG TAB PO SCH (18:34)
[2016-11-23] MEDS: oxyCODONE IR 5 MG TAB PO PRN (19:53)
--- NOTE | 2016-11-23 19:53 | SOAPPROG ---
SOAP Progress Note Assessment/Plan: Assessment: 71 yo s/p resection of bowel due to adhesions Later developed leak at original anastomosis/perforated crohns Regular diet with supervision CT abdomen with multiple small collections, too small to drain Severe deconditioning D/C superior drain in am. Will likely be able to discontinue wound vac later this week Needs to work on PO intake and strength WBC improved Mentation improved Look for placement S: Tolerating diet - had a fruit cup and ensure today O: Lying in bed, smiling BS present Ostomy in LUQ with thin output. Both drains with scant output WV to suction Abdomen is soft Plan: 11/05/16 23:21 11/18/16 08:34 11/19/16 13:02 11/20/16 07:52 11/20/16 13:39 11/21/16 08:08 11/22/16 16:45 11/23/16 19:52 Objective: Vital Signs Temp Pulse Resp BP Pulse Ox 37 C 96 18 122/67 H 96 11/23/16 19:36 11/23/16 19:36 11/23/16 19:36 11/23/16 19:36 11/23/16 19:36 Microbiology 11/18/16 09:17 Blood Culture - Final Blood 11/18/16 09:10 Blood Culture - Final Blood Laboratory Results 11/23/16 04:44 11/23/16 04:44 11/22/16 11/23/16 11/24/16 05:59 05:59 05:59 Intake Total 437 820 1551 Output Total 3660 2693 1660 Balance -3012 -2193 140 PT 15.4 SEC (12.0-15.0) H 11/22/16 06:40 INR 1.22 (0.83-1.16) H 11/22/16 06:40 ICD10 Worksheet Patient Problems: Problems Problem Status Onset Abdominal pain Acute Acute Crohn's disease Acute Abdominal pain, chronic, right lower quadrant Acute Bronchitis Acute Crohns disease Acute Crohns disease of small intestine Acute Intra-abdominal abscess Acute Malnutrition Acute
[2016-11-23] MEDS: PREGABALIN 50 MG CAP PO SCH (21:40)
[2016-11-23] MEDS: ACETAMINOPHEN 325 MG TAB PO PRN (21:41)
[2016-11-23] MEDS: MELATONIN 3 MG TAB PO SCH (21:41)
[2016-11-23] MEDS: PATCH REMOVAL 1 EA PATCH TD SCH (22:00)
[2016-11-24 06:10] LABS: ANION GAP 10 mEq/L (8-16); CALCIUM 8.6 mg/dL (8.5-10.4); CARBON DIOXIDE 29 mEq/l (22-31); CHLORIDE 99 mEq/L (97-110); CREATININE 0.4 mg/dL (0.6-1.0); GLOMERULAR FILTRATION RATE > 60; GLUCOSE 90 mg/dL (70-100); MAGNESIUM 2.2 mg/dL (1.6-2.3); POTASSIUM 4.5 mEq/L (3.5-5.2); SODIUM 138 mEq/L (134-144)
[2016-11-24] MEDS: MEROPENEM 1 GM in NS 100 ML IV SCH ×3 (06:27→21:47)
[2016-11-24] MEDS: PREGABALIN 50 MG CAP PO SCH ×2 (08:29→21:47)
[2016-11-24] MEDS: FLUoxetine 20 MG CAP PO SCH (08:29)
[2016-11-24] MEDS: oxyCODONE IR 5 MG TAB PO PRN ×4 (08:30→21:53)
[2016-11-24] MEDS: ENOXAPARIN 40 MG/0.4 ML SYR SC SCH (08:38)
[2016-11-24] MEDS: predniSONE 5 MG TAB PO SCH ×2 (08:43→18:01)
[2016-11-24] MEDS: ONDANSETRON 4 MG/2 ML VIAL IVP PRN (09:19)
[2016-11-24] MEDS: MICAFUNGIN NA 100 MG in NS 100 ML IV SCH (09:21)
[2016-11-24] MEDS: LIDOCAINE 5% 1 EA PATCH TD SCH (10:13)
--- NOTE | 2016-11-24 11:35 | SOAPPROG ---
SOAP Progress Note Assessment/Plan: Assessment: SP SB RESECTION FOR ADHESIVE STRICTURE/ PATH PENDING BUT NO OBVIOUS CROHNS AT SURGERY ABD SOFT WITH BS/ -FLATUS/ AFEBRILE, NONICTERIC CHEST CLEAR/ COR RR CONFUSED TODAY BUT PLEASANT/ DOESNT REMEMBER SURGERY/ CO A ROUGH NITE/ UO OK NEEDS MOBILIZATION Plan:AMBULATE/ ADD TORADOL/ MINIMIZE NARCS 11/06/16 11:06 11/07/16 08:36 still confused/ wound ok/ abd soft/ -flatus/ no bm/ path pending/ cxr basilar atelectasis/ wbc2.7k/ mobilize 11/09/16 13:54 DRAMATIC CHANGE TODAY/ MARKEDLY DISTENDED WITH ACTIVE BS/ MINIMAL FLATUS/ AFEBRILE/ WBC 2.6K WILL CHECK CT AND MOVE TO ICU 11/09/16 17:29 ct shows some free air and lots of ascites/ requiring pressors for bp/ uo diminished/ abd distended and tender risks and options fully discussed with pt and family who wish to proceed with urgent laparotomy 11/11/16 08:58 STABLE ON PEEP AT 10/ CXR BILATERAL FLUFFINESS/ WOUND OK/ LOW GRADE TEMP/ UO MASSIVE WITH DIURESIS/ ABD GOOD/ HCT 26 WOUND VAC CHANGE TODAY/ CONSIDER WOUND FASCIAL CLOSURE 11/11/16 12:31 PATIENT SEEN EARLIER TODAY. AFEBRILE AND STABLE VITAL SIGNS. PLAN IS A WOUND VAC CHANGE IN THE OR. 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 / urine output is good / Pelvic JAS drain is putting out some cloudy fluid but the upper drain is putting out minimal serous fluid Unable to speak and mental status is in question but alert and follows the activities in the room / may need a head CT scan 11/18/16 09:45 low-grade temp / still with the non communication problem / wound okay / urine output grade / abdomen is soft and nontender / JAS drainage is still purulence from the pelvis Head CT was negative for any acute problem / chest CT shows bilateral pneumonia and effusion / abdominal CT is pending / patient is a setup for possible new abscess in her abdomen 11/19/16 19:44 AFEBRILE/ MENTAL STATUS IMPROVED/ WOUND OKAY / OSTOMY FUNCTIONING WELL/ TOLERATING SLOW TO FEEDS / ABDOMEN IS SOFT AND VAGUELY TENDER / DRAINAGE DECREASED / PLAN IS TO SLOWLY ADVANCE THE TUBE FEEDS / SHE MAY NEED FOLLOW-UP CT SCAN IF SHE GETS SICKER 11/23/16 13:47 afebrile/ ostomy ok/ wound ok/ uo adequate/ wbc down to 14k/ abd soft,minimally tender/ probably can dc vac soon 11/24/16 11:34 VITAL SIGNS STABLE/ AFEBRILE/ ABDOMEN SOFT/ WOUND VAC IN PLACE/ STARTING TO EAT SMALL AMOUNTS/ OSTOMY GOOD / POSITIVE BOWEL SOUNDS / MINIMAL JAS DRAINAGE / IMPROVING Objective: Vital Signs Temp Pulse Resp BP Pulse Ox 36.4 C 93 16 123/75 H 97 11/24/16 08:00 11/24/16 08:00 11/24/16 08:00 11/24/16 08:00 11/24/16 08:00 Microbiology 11/18/16 09:17 Blood Culture - Final Blood 11/18/16 09:10 Blood Culture - Final Blood Laboratory Results 11/23/16 04:44 11/24/16 05:00 11/23/16 11/24/16 11/25/16 05:59 05:59 05:59 Intake Total 500 2100 Output Total 2693 2085 200 Balance -2193 15 -200 PT 15.4 SEC (12.0-15.0) H 11/22/16 06:40 INR 1.22 (0.83-1.16) H 11/22/16 06:40 ICD10 Worksheet Patient Problems: Problems Problem Status Onset Abdominal pain Acute Acute Crohn's disease Acute Abdominal pain, chronic, right lower quadrant Acute Bronchitis Acute Crohns disease Acute Crohns disease of small intestine Acute Intra-abdominal abscess Acute Malnutrition Acute
[2016-11-24 11:36] LABS: ALBUMIN 2.9 g/dL (3.5-5.0); BILIRUBIN,TOTAL 0.8 mg/dL (0.1-1.4); BILIRUBIN-CONJUGATED 0.6 mg/dL (0.0-0.5); BILIRUBIN-UNCONJUGATED 0.2 mg/dL (0.0-1.1); TOTAL PROTEIN 5.9 g/dL (6.3-8.2)
--- NOTE | 2016-11-24 13:38 | HOSPPROG ---
Hospitalist Progress Note Assessment/Plan: * SBO due to adhesions s/p SUHAIL/SB resection by Dr. Yee 11/04 * Leaking old ileocolic anastomosis with peritonitis/abd abscess * Clostridium possible organism on culture * s/p repeat OR w/ fluid collection washed out, vac in place * CT scan with small fluid collections although I am not sure if this is amenable to drainage * cont cassidy, fluconazole switched to micofungin * Leukocytosis improving * elevated liver function tests * Possibly due to fluconazole * Will monitor off now that she is off * Crohn's disease, with chronic immunosuppression, potentially contributing stricture on presentation * s/p stress dose steroids * adjusted back to prednisone * Septic shock, resolved * Acute hypoxic respiratory failure, secondary suspected HCAP, NOT related to original surgery * cont high flow o2, extubated * acute encephalopathy * resolved * Healthcare associated pneumonia * Resolving * Chronic pain w/ continuous opiate dependency. High home opiate requirements, increasing PO oxy IR and uptitrate if needed for pain -home requirement is 15mg q6 * nutrition * On oral * disposition - probably can go to rehab fairly soon Subjective: no new complaints. Is still quite weak but seems to be getting a little bit stronger. Objective: Vital Signs Temp Pulse Resp BP Pulse Ox 36.9 C 92 16 124/75 H 98 11/24/16 12:51 11/24/16 12:51 11/24/16 12:51 11/24/16 12:51 11/24/16 12:51 Microbiology 11/18/16 09:17 Blood Culture - Final Blood 11/18/16 09:10 Blood Culture - Final Blood Laboratory Results 11/23/16 04:44 11/24/16 05:00 11/23/16 11/24/16 11/25/16 05:59 05:59 05:59 Intake Total 500 2100 Output Total 2693 2085 200 Balance -2193 15 -200 PT 15.4 SEC (12.0-15.0) H 11/22/16 06:40 INR 1.22 (0.83-1.16) H 11/22/16 06:40 - Physical Exam Constitutional: no apparent distress, appears nourished, not in pain Eyes: anicteric sclera, EOMI Ears, Nose, Mouth, Throat: moist mucous membranes, hearing normal Cardiovascular: regular rate and rhythym Respiratory: no respiratory distress Gastrointestinal: normoactive bowel sounds, soft, non-tender abdomen, no palpable masses, other ( Ileostomy) Skin: warm Neurologic: AAOx3 Psychiatric: interacting appropriately, not anxious, not encephalopathic, thought process linear ICD10 Worksheet Patient Problems: Problems Problem Status Onset Abdominal pain Acute Acute Crohn's disease Acute Abdominal pain, chronic, right lower quadrant Acute Bronchitis Acute Crohns disease Acute Crohns disease of small intestine Acute Intra-abdominal abscess Acute Malnutrition Acute
--- NOTE | 2016-11-24 15:24 | WOCRNPDOC ---
WOCRN Advanced Assessment Note - Skin Integrity Problem, Advanced Assess Abdomen Surgical Wound/Incision Dressing Type: Black Vac Foam, Wound Vac Dressing Description: Clean/Dry, Intact Closure Description: Retention Sutures (noted in wound base, intact.) Exudate Amount: None Exudate Characteristic(s): None Integumentary Issue Intervention: Dressing Changed Kenzie Wound Swelling: None Wound Bed Color: Red, Yellow Wound Bed Constitution: Granulation Tissue (95%), Subcutaneous Fat, Adhered Slough (5%) Wound Edges: Epithelizing Site Odor: None Site Measurement - Head-to-Toe Length X Width X Depth (cm): [id number] Skin Integrity Problem Comment: Vac dressing removed; wound bed 95% granulation tissue, w/ scant adhered slough in distal aspect of wound bed. Wound almost approximated at midpoint, distal and proximal wound beds. No exudate was noted in the canister, which was changed on 11/22, and there was no appreciable exudate observed during dressing change or assessment. After consultation w/ Dr. Yee, decision was made to transition patient from a wound vac to an incisional dressing. Site cleansed w/ NS and gauze, and Hydrofera Blue classic foam was applied to the wound bed. Site covered w/ an incisional dressing, trimmed along left lateral edge to accommodate ostomy appliance. Wound vac dc'd, and report given to software architectLUCAS Smith. Wound care will follow up with patient on Sunday 11/26.
--- NOTE | 2016-11-24 19:09 | SOAPPROG ---
SOAP Progress Note Assessment/Plan: Assessment/Plan: 71yo F Crohn's disease s/p small bowel resection due to adhesions, later developed leak at original anastomosis/perforated crohns Wound vac to be d/c'd today and switch to HFB Regular diet Remove superior drain today Severe deconditioning - PT and OT Dispo: pending placement. appreciate hospitalists. discussed c Dr. Yee S: Says she is "so weak". tolerating regular diet without n/v. Abdominal pain but mostly discouraged O: Laying in bed, no acute distress CTAB anteriorly RRR BS presents, abd soft, nondistended, nontender Ostomy in LUQ with thin output Both drains with min output WV to suction Objective: Vital Signs Temp Pulse Resp BP Pulse Ox 36.4 C 112 H 18 106/63 98 11/24/16 15:58 11/24/16 15:58 11/24/16 15:58 11/24/16 15:58 11/24/16 15:58 Microbiology 11/18/16 09:17 Blood Culture - Final Blood 11/18/16 09:10 Blood Culture - Final Blood Laboratory Results 11/23/16 04:44 11/24/16 05:00 11/23/16 11/24/16 11/25/16 05:59 05:59 05:59 Intake Total 500 2100 750 Output Total 2693 2085 1203 Balance -2193 15 -453 PT 15.4 SEC (12.0-15.0) H 11/22/16 06:40 INR 1.22 (0.83-1.16) H 11/22/16 06:40 ICD10 Worksheet Patient Problems: Problems Problem Status Onset Abdominal pain Acute Acute Crohn's disease Acute Abdominal pain, chronic, right lower quadrant Acute Bronchitis Acute Crohns disease Acute Crohns disease of small intestine Acute Intra-abdominal abscess Acute Malnutrition Acute
--- NOTE | 2016-11-24 19:19 | PCMIDPN ---
Assessment/Plan: Assessment/Plan: * Septic shock due to peritonitis associated with anastomotic breakdown with Clostridium bacteremia: Continued slow clinical improvement. Continue micafungin and meropenem. Treatment duration dependent on clinical course but likely to require at least 4 week course of treatment. * Increased LFTs: Stable mild increase in LFTs. Fluconazole changed to micafungin in event contributing. Continue to follow over time. 11/24/16 19:15 Subjective: Patient was able to walk today. Remains quite weak. Mild abdominal discomfort present. Objective: Vital Signs Temp Pulse Resp BP Pulse Ox 36.4 C 112 H 18 106/63 98 11/24/16 15:58 11/24/16 15:58 11/24/16 15:58 11/24/16 15:58 11/24/16 15:58 Microbiology 11/18/16 09:17 Blood Culture - Final Blood 11/18/16 09:10 Blood Culture - Final Blood Laboratory Results 11/23/16 04:44 11/24/16 05:00 11/23/16 11/24/16 11/25/16 05:59 05:59 05:59 Intake Total 500 2100 750 Output Total 2693 2085 1203 [facility] -2193 15 -712 Meropenem # 7, antibiotics # 16 Micafungin # 3, anti fungal # 12 Laboratory Tests 11/24/16 05:20 Total Bilirubin 0.8 AST 70 H ALT 72 H Alkaline Phosphatase 196 H - Physical Exam General Appearance: alert, no apparent distress, thin EENT: No scleral icterus, No thrush Respiratory: No respiratory distress Cardiac/Chest: regular rate, rhythm Abdomen: tender (Mild diffusely), other (JAS bulb with serosanguineous output) Neuro/Psych: other (Diffuse muscular atrophy) ICD10 Worksheet Patient Problems: Problems Problem Status Onset Abdominal pain Acute Acute Crohn's disease Acute Abdominal pain, chronic, right lower quadrant Acute Bronchitis Acute Crohns disease Acute Crohns disease of small intestine Acute Intra-abdominal abscess Acute Malnutrition Acute
[2016-11-24] MEDS: ACETAMINOPHEN 325 MG TAB PO PRN (19:39)
[2016-11-24] MEDS: ONDANSETRON DISINTEGRATING 4 MG TAB PO PRN (19:39)
[2016-11-24] MEDS: MELATONIN 3 MG TAB PO SCH (21:47)
[2016-11-24] MEDS: PATCH REMOVAL 1 EA PATCH TD SCH (22:00)
[2016-11-25] MEDS ORDERED: LORazepam 0.5 MG TAB PO ONE (02:57)
[2016-11-25] MEDS: MEROPENEM 1 GM in NS 100 ML IV SCH ×2 (05:40→14:12)
[2016-11-25 05:59] LABS: % IMMATURE GRANULYOCYTES 0.5 % (0.0-1.1); ABSOLUTE IMMATURE GRANULOCYTES 0.07 10^3/uL (0.00-0.10); ADD DIFF? NO; ADD MORPH? NO; ADD SCAN? NO; ATYPICAL LYMPHOCYTE FLAG 40 (0-99); FRAGMENT RBC FLAG 0 (0-99); HEMATOCRIT 31.5 % (38.0-47.0); HEMOGLOBIN 10.4 g/dL (12.6-16.3); LEFT SHIFT FLG 30 (0-99); LIPEMIA HEMOLYSIS FLAG 80 (0-99); MEAN CELL HEMOGLOBIN 29.3 pg (27.9-34.1); MEAN CELL VOLUME 88.7 fL (81.5-99.8); MEAN PLATELET VOLUME 10.1 fL (8.7-11.7); PLATELET CLUMPS FLAG 10 (0-99); PLATELET COUNT 622 10^3/uL (150-400); RED BLOOD CELL COUNT 3.55 10^6/uL (4.18-5.33); RED CELL DISTRIBUTION WIDTH 15.9 % (11.5-15.2)
[2016-11-25 06:32] LABS: ALANINE AMINOTRANSFERASE 87 IU/L (9-52); ALKALINE PHOSPHATASE 195 IU/L (38-126); ANION GAP 9 mEq/L (8-16); ASPARTATE AMINOTRANSFERASE 70 IU/L (14-46); BILIRUBIN,TOTAL 0.8 mg/dL (0.1-1.4); CALCIUM 8.8 mg/dL (8.5-10.4); CARBON DIOXIDE 30 mEq/l (22-31); CHLORIDE 97 mEq/L (97-110); CREATININE 0.4 mg/dL (0.6-1.0); GLOMERULAR FILTRATION RATE > 60; GLUCOSE 107 mg/dL (70-100); POTASSIUM 4.6 mEq/L (3.5-5.2); SODIUM 136 mEq/L (134-144); TOTAL PROTEIN 6.4 g/dL (6.3-8.2)
[2016-11-25] MEDS: FLUoxetine 20 MG CAP PO SCH (08:56)
[2016-11-25] MEDS: predniSONE 5 MG TAB PO SCH ×2 (08:56→18:14)
[2016-11-25] MEDS: oxyCODONE IR 5 MG TAB PO PRN ×4 (08:56→22:11)
[2016-11-25] MEDS: MICAFUNGIN NA 100 MG in NS 100 ML IV SCH (08:56)
[2016-11-25] MEDS: PREGABALIN 50 MG CAP PO SCH ×2 (08:56→22:13)
[2016-11-25] MEDS: ONDANSETRON DISINTEGRATING 4 MG TAB PO PRN ×3 (08:56→18:14)
[2016-11-25] MEDS: ENOXAPARIN 40 MG/0.4 ML SYR SC SCH (09:01)
[2016-11-25] MEDS: LIDOCAINE 5% 1 EA PATCH TD SCH (09:03)
--- NOTE | 2016-11-25 10:12 | PCMIDPN ---
Assessment/Plan: #Polymicrobial peritonitis s/p anastomotic leak following open SB resection for management of Crohn's. Now s/p abdominal exploration with resection of remote ileocolic anastomosis abdomen then left open with multiple wound vac changes in OR, ileostomy, now s/p fascial closure. WBC improving, increasing strength. Antibiotics broadened during sepsis but now microbiologic evidence of more resistant GNRs --stepdown antibiotics to ertapenem for clostridium coverage + typical enterics --resume fluconazole for empiric annamaria coverage, no clear that flucononazole cause LFT elevations #clostridium bacteremia 11/09 secondary to intra-abdominal process, 11/16 & 11/18 blood cx negative # Elevated LFTs preceded fluconazole therapy meds Meropenem 1gm IV q8 # 8, antibiotics # 17 Micafungin # 4, anti fungal # 13 Subjective: patient without pain today. She is feeling stronger. Objective: Vital Signs Temp Pulse Resp BP Pulse Ox 37.1 C 96 18 130/69 H 98 11/25/16 08:30 11/25/16 08:30 11/25/16 08:30 11/25/16 08:30 11/25/16 08:30 Laboratory Results 11/25/16 05:45 11/25/16 05:45 11/24/16 11/25/16 11/26/16 05:59 05:59 05:59 Intake Total 2100 750 Output Total 2085 2178 200 Balance 15 -1428 -200 - Physical Exam General Appearance: thin EENT: pale conjunctiva, No thrush Respiratory: other ( Decreased breath sounds n the base), No accessory muscle use Cardiac/Chest: regular rate, rhythm Extremities: No pedal edema Abdomen: non-tender, soft, other ( ostomy with liquid stool that is somewhat black in color) Skin: No rash Neuro/Psych: alert, normal mood/affect, oriented x 3 - Time Spent With Patient Time Spent with Patient: greater than 35 minutes (care reviewed with patient's daughter at bedside) Time Spent with Patient: Greater than 35 minutes spent on this patients care, greater than 50% of time spent counseling, educating, and coordinating care regarding the above mentioned plan. ICD10 Worksheet Patient Problems: Problems Problem Status Onset Abdominal pain Acute Acute Crohn's disease Acute Abdominal pain, chronic, right lower quadrant Acute Bronchitis Acute Crohns disease Acute Crohns disease of small intestine Acute Intra-abdominal abscess Acute Malnutrition Acute
--- NOTE | 2016-11-25 12:16 | WOCRNPDOC ---
WOCRN Advanced Assessment Note - Skin Integrity Problem, Advanced Assess Coccyx Dressing Type: Allevyn Life Dressing Description: Clean/Dry, Intact Exudate Amount: None Integumentary Issue Intervention: Visualized Under Dressing Kenzie Wound Tissue: Blanching, Intact Kenzie Wound Swelling: None Wound Bed Color: Purple Wound Edges: Attached, Well Defined Site Odor: None Site Measurement - Head-to-Toe Length X Width X Depth (cm): 0.8 x 1.1 x 0 Pressure Injury Present on Admit: No (new finding, reported by LUCAS Smith) Skin Integrity Problem Comment: Small, intact, purple bruise-like discoloration at coccyx, under appropriately placed sacrum dressing. Patient is on TAPS and turn schedule, currently positioned on right side. Discussed addition of Accumax mattress with pump with LUCAS Smith; have also ordered aircushion for chair with repositioning schedule to implement as patient begins remobilization.
--- NOTE | 2016-11-25 15:59 | HOSPPROG ---
Hospitalist Progress Note Assessment/Plan: This 71-year-old female new to my care today with: * SBO due to adhesions s/p SUHAIL/SB resection by Dr. Yee 11/04 * Leaking old ileocolic anastomosis with suspected Clostridium peritonitis/abd abscess s/p repeat OR w/ fluid collection washed out * Continue micafungin and meropenem per ID * elevated liver function tests * Possibly due to fluconazole * Will monitor off now that she is off * Crohn's disease, with chronic immunosuppression, potentially contributing stricture on presentation * s/p stress dose steroids * adjusted back to prednisone * Septic shock, resolved * Acute hypoxic respiratory failure, secondary suspected HCAP, NOT related to original surgery * cont high flow o2, extubated * acute encephalopathy * resolved * Healthcare associated pneumonia * Resolving * Chronic pain w/ continuous opiate dependency. High home opiate requirements, increasing PO oxy IR and uptitrate if needed for pain -home requirement is 15mg q6 * nutrition * On oral * disposition - continue inpatient care for now. We are currently pursuing inpatient rehab placement patient is high risk. History physical and physical /consult notes were reviewed Subjective: no fevers or chills. tolerating diet, but appetite is poor. still very weak and unable to ambulate independently Objective: Vital Signs Temp Pulse Resp BP Pulse Ox 36.6 C 106 H 18 105/73 98 11/25/16 12:20 11/25/16 12:20 11/25/16 12:20 11/25/16 12:20 11/25/16 12:20 Laboratory Results 11/25/16 05:45 11/25/16 05:45 11/24/16 11/25/16 11/26/16 05:59 05:59 05:59 Intake Total 2100 750 Output Total 2085 2178 900 Balance 15 1428 -900 PT 15.4 SEC (12.0-15.0) H 11/22/16 06:40 INR 1.22 (0.83-1.16) H 11/22/16 06:40 - Physical Exam Constitutional: no apparent distress, appears nourished, not in pain Cardiovascular: regular rate and rhythym, no murmur, rub, or gallop Respiratory: no respiratory distress, no rales or rhonchi, clear to auscultation Gastrointestinal: normoactive bowel sounds, distension, No tenderness, No rebound Genitourinary: no bladder fullness, no bladder tenderness, no renal bruits Neurologic: AAOx3, sensation intact bilaterally ICD10 Worksheet Patient Problems: Problems Problem Status Onset Bronchitis Acute Malnutrition Acute Crohns disease Acute Intra-abdominal abscess Acute Abdominal pain, chronic, right lower quadrant Acute Crohns disease of small intestine Acute Abdominal pain Acute Acute Crohn's disease Acute
[2016-11-25] MEDS: MELATONIN 3 MG TAB PO SCH (22:13)
[2016-11-25] MEDS: PATCH REMOVAL 1 EA PATCH TD SCH (23:00)
[2016-11-26] MEDS: oxyCODONE IR 5 MG TAB PO PRN (03:42)
[2016-11-26] MEDS: ONDANSETRON DISINTEGRATING 4 MG TAB PO PRN (05:06)
--- NOTE | 2016-11-26 08:36 | SOAPPROG ---
SOAP Progress Note Assessment/Plan: Assessment/Plan: 71yo F Crohn's disease s/p small bowel resection due to adhesions, later developed leak at original anastomosis/perforated crohns HFB to midline wound Regular diet Nausea with meals Severe deconditioning - PT and OT Dispo: pending placement. appreciate hospitalists. seen c Dr. Yee S: nausea with eating. does well with yogurt and fish. pain controlled. getting stronger O: Laying in bed, no acute distress no increased wob abd soft, nondistended, nontender Ostomy in LUQ with thin output Midline dressing intact Objective: Vital Signs Temp Pulse Resp BP Pulse Ox 36.6 C 100 18 116/75 100 11/26/16 08:10 11/26/16 08:10 11/26/16 08:10 11/26/16 08:10 11/26/16 08:10 Laboratory Results 11/25/16 05:45 11/25/16 05:45 11/25/16 11/26/16 11/27/16 05:59 05:59 05:59 Intake Total 750 1020 Output Total 2178 2150 Balance -1428 -1130 PT 15.4 SEC (12.0-15.0) H 11/22/16 06:40 INR 1.22 (0.83-1.16) H 11/22/16 06:40 ICD10 Worksheet Patient Problems: Problems Problem Status Onset Abdominal pain Acute Acute Crohn's disease Acute Abdominal pain, chronic, right lower quadrant Acute Bronchitis Acute Crohns disease Acute Crohns disease of small intestine Acute Intra-abdominal abscess Acute Malnutrition Acute
--- NOTE | 2016-11-26 09:33 | PCMIDPN ---
Assessment/Plan: #Polymicrobial peritonitis s/p anastomotic leak following open SB resection for management of Crohn's. Multiple surgical interventions now s/p abdominal closure 11/15 and all drains out as of 11/25. AF, no new labs today. --continue antibiotics to ertapenem for clostridium coverage + typical enterics --continue fluconazole for empiric annamaria coverage\ --dc Au if feasible --tentatively plan CT scan in approximately 7-10 days to assess duration of antibiotics #clostridium bacteremia 11/09 secondary to intra-abdominal process, 11/16 & 11/18 blood cx negative # Elevated LFTs preceded fluconazole therapy --re-check LFTs tomorrow meds Meropenem 1gm IV q8 # 9, antibiotics # 18 Micafungin # 5, anti fungal # [address] Yee. Reviewed plans with patient and daughter Subjective: some nausea felt too weak to walk yesterday Objective: Vital Signs Temp Pulse Resp BP Pulse Ox 36.6 C 100 18 116/75 100 11/26/16 08:10 11/26/16 08:10 11/26/16 08:10 11/26/16 08:10 11/26/16 08:10 Laboratory Results 11/25/16 05:45 11/25/16 05:45 11/25/16 11/26/16 11/27/16 05:59 05:59 05:59 Intake Total 750 1020 Output Total 2178 2150 300 Balance -1428 -1130 -300 - Physical Exam General Appearance: alert, no apparent distress, thin EENT: pale conjunctiva, No scleral icterus, No thrush Respiratory: lungs clear, No accessory muscle use Neck: supple Cardiac/Chest: regular rate, rhythm Extremities: No pedal edema Abdomen: non-tender, soft, other (ostomy with green fecal material, stoma pink/ healthy; midine incision without erythema or discharge. superficially skin open ), No distended Pelvic Exam: au Skin: pallor, No rash Neuro/Psych: alert, normal mood/affect, oriented x 3 - Line/s RUE PICC Lines: No drainage, No erythema ICD10 Worksheet Patient Problems: Problems Problem Status Onset Abdominal pain Acute Acute Crohn's disease Acute Abdominal pain, chronic, right lower quadrant Acute Bronchitis Acute Crohns disease Acute Crohns disease of small intestine Acute Intra-abdominal abscess Acute Malnutrition Acute
--- NOTE | 2016-11-26 09:38 | WOCRNPDOC ---
[facility] Advanced Assessment Note - Skin Integrity Problem, Advanced Assess Abdomen Surgical Wound/Incision Dressing Type: Hydrofera Blue, LeukoMed with Pads Dressing Description: Clean/Dry, Intact Closure Description: Retention Sutures (trimmed by Dr. Yee at the bedside) Exudate Amount: Scant Exudate Characteristic(s): Serosanguinous Integumentary Issue Intervention: Dressing Changed Christiano Wound Swelling: None Wound Bed Color: Red, Yellow Wound Bed Constitution: Granulation Tissue (95%), Subcutaneous Fat, Adhered Slough (trace, >5 in distal aspect of wound) Wound Edges: Epithelizing Site Odor: None Skin Integrity Problem Comment: Wound bed granulating throughout, w/ only trace adhered slough distally. Margins are epithelializing, almost approximated at midpoint along the incision. Continue w/ HFB classic, adding collagen to wound bed next dressing change. Dr. Yee trimmed retention sutures in wound bed this morning. Will round on patient again on Wednesday 11/29. - Ileostomy Assessment, Advanced Left Lower Abdomen Ileostomy Ileostomy Appliance Intact: No (leaking onto midline during dressing change) Ileostomy Appliance Currently in Use: Two Piece Flat, 2 1/4, Moldable Ileostomy Accessory: Barrier Ring Stoma Color: Red Stoma Turgor: Moist Stoma Shape: Round Stoma Height: Protruding Mucocutaneus Junction: Intact (sutures visible, intact) Ileostomy Effluent: Fecal, Thin, Liquid Ileostomy Details: Loop Peristomal Skin: Denuded Peristomal Skin Complications: Irritant Contact Dermatitis Ileostomy Comment/Treatment Details: Changed appliance w/ quality director Paavo at the bedside when leak noted. Well-protruding stoma, moist and red. Sutures intact at mucocutaneous junction w/ no separation noted. Very thin, liquid, green output noted in pouch. There is some mild christiano-stomal irritant dermatitis r/t exposure to effluent at 11, 6-7 o'clock, w/ raw, denuded skin evident. Applied barrier ring and ostomy wafer right up to the stoma w/ no peristomal skin showing. Appliance had to be trimmed along the R side due to close proximity of midline incision/dressing. Advised quality director to monitor for leaks, especially on this R side facing the incisional dressing.
[2016-11-26] MEDS: ENOXAPARIN 40 MG/0.4 ML SYR SC SCH (09:44)
[2016-11-26] MEDS: PREGABALIN 50 MG CAP PO SCH ×2 (09:45→20:23)
[2016-11-26] MEDS: LIDOCAINE 5% 1 EA PATCH TD SCH (09:45)
[2016-11-26] MEDS: predniSONE 5 MG TAB PO SCH ×2 (09:45→19:03)
[2016-11-26] MEDS: FLUoxetine 20 MG CAP PO SCH (09:48)
[2016-11-26] MEDS: FLUCONAZOLE 100 MG TAB PO SCH (09:51)
[2016-11-26] MEDS: ERTAPENEM 1 GM in NS 100 ML IV SCH (10:05)
--- NOTE | 2016-11-26 15:12 | HOSPPROG ---
Hospitalist Progress Note Assessment/Plan: This 71-year-old female new to my care on 11/25/16 with: * SBO due to adhesions s/p SUHAIL/SB resection by Dr. Yee 11/04 * Leaking old ileocolic anastomosis with suspected Clostridium peritonitis/abd abscess s/p repeat OR w/ fluid collection washed out * Continue micafungin and meropenem per ID * elevated liver function tests * Possibly due to fluconazole * repeat lfts in AM * Crohn's disease, with chronic immunosuppression, potentially contributing stricture on presentation * s/p stress dose steroids * adjusted back to prednisone * Septic shock, resolved * Acute hypoxic respiratory failure, secondary suspected HCAP, NOT related to original surgery * cont high flow o2, extubated * acute encephalopathy * resolved * Healthcare associated pneumonia * Resolving * Chronic pain w/ continuous opiate dependency. High home opiate requirements, increasing PO oxy IR and uptitrate if needed for pain -home requirement is 15mg q6 * nutrition * On oral * disposition - continue inpatient care for now. We are currently pursuing inpatient rehab placement patient is high risk. I discussed the case with Dr. Yee and reviewed the Infectious Disease progress notes. Subjective: Denies fevers or chills. improving nausea today. improving appetite Objective: Vital Signs Temp Pulse Resp BP Pulse Ox 36.3 C 119 H 18 102/70 98 11/26/16 11:32 11/26/16 11:32 11/26/16 11:32 11/26/16 11:32 11/26/16 11:32 Laboratory Results 11/25/16 05:45 11/25/16 05:45 11/25/16 11/26/16 11/27/16 05:59 05:59 05:59 Intake Total 750 1020 Output Total 2178 2150 300 Balance -1428 -1130 -300 PT 15.4 SEC (12.0-15.0) H 11/22/16 06:40 INR 1.22 (0.83-1.16) H 11/22/16 06:40 - Physical Exam Constitutional: no apparent distress, appears nourished, not in pain Cardiovascular: regular rate and rhythym, no murmur, rub, or gallop Respiratory: no respiratory distress, no rales or rhonchi, clear to auscultation Gastrointestinal: normoactive bowel sounds, soft, non-tender abdomen, no palpable masses, No guarding, No rebound Neurologic: AAOx3, CN II-XII Intact, No facial droop ICD10 Worksheet Patient Problems: Problems Problem Status Onset Bronchitis Acute Malnutrition Acute Crohns disease Acute Intra-abdominal abscess Acute Abdominal pain, chronic, right lower quadrant Acute Crohns disease of small intestine Acute Abdominal pain Acute Acute Crohn's disease Acute
[2016-11-26] MEDS: MELATONIN 3 MG TAB PO SCH (20:23)
[2016-11-26] MEDS: PATCH REMOVAL 1 EA PATCH TD SCH (20:38)
[2016-11-27 05:07] LABS: ALBUMIN 3.6 g/dL (3.5-5.0); BILIRUBIN,TOTAL 0.7 mg/dL (0.1-1.4); BILIRUBIN-CONJUGATED 0.5 mg/dL (0.0-0.5); BILIRUBIN-UNCONJUGATED 0.2 mg/dL (0.0-1.1); TOTAL PROTEIN 6.8 g/dL (6.3-8.2)
--- NOTE | 2016-11-27 07:56 | SOAPPROG ---
SOAP Progress Note Assessment/Plan: Assessment: SP SB RESECTION FOR ADHESIVE STRICTURE/ PATH PENDING BUT NO OBVIOUS CROHNS AT SURGERY ABD SOFT WITH BS/ -FLATUS/ AFEBRILE, NONICTERIC CHEST CLEAR/ COR RR CONFUSED TODAY BUT PLEASANT/ DOESNT REMEMBER SURGERY/ CO A ROUGH NITE/ UO OK NEEDS MOBILIZATION Plan:AMBULATE/ ADD TORADOL/ MINIMIZE NARCS 11/06/16 11:06 11/07/16 08:36 still confused/ wound ok/ abd soft/ -flatus/ no bm/ path pending/ cxr basilar atelectasis/ wbc2.7k/ mobilize 11/09/16 13:54 DRAMATIC CHANGE TODAY/ MARKEDLY DISTENDED WITH ACTIVE BS/ MINIMAL FLATUS/ AFEBRILE/ WBC 2.6K WILL CHECK CT AND MOVE TO ICU 11/09/16 17:29 ct shows some free air and lots of ascites/ requiring pressors for bp/ uo diminished/ abd distended and tender risks and options fully discussed with pt and family who wish to proceed with urgent laparotomy 11/11/16 08:58 STABLE ON PEEP AT 10/ CXR BILATERAL FLUFFINESS/ WOUND OK/ LOW GRADE TEMP/ UO MASSIVE WITH DIURESIS/ ABD GOOD/ HCT 26 WOUND VAC CHANGE TODAY/ CONSIDER WOUND FASCIAL CLOSURE 11/11/16 12:31 PATIENT SEEN EARLIER TODAY. AFEBRILE AND STABLE VITAL SIGNS. PLAN IS A WOUND VAC CHANGE IN THE OR. RISKS AND OPTIONS FULLY DISCUSSED WITH THE DAUGHTER WISHES TO PROCEED 11/17/16 17:17 afebrile / vital signs stable/ wound clean with wound VAC change today / ostomy functioning well / abdomen precipitation equipment tender with decreased bowel sounds and slight distention / urine output is good / Pelvic JAS drain is putting out some cloudy fluid but the upper drain is putting out minimal serous fluid Unable to speak and mental status is in question but alert and follows the activities in the room / may need a head CT scan 11/18/16 09:45 low-grade temp / still with the non communication problem / wound okay / urine output grade / abdomen is soft and nontender / JAS drainage is still purulence from the pelvis Head CT was negative for any acute problem / chest CT shows bilateral pneumonia and effusion / abdominal CT is pending / patient is a setup for possible new abscess in her abdomen 11/19/16 19:44 AFEBRILE/ MENTAL STATUS IMPROVED/ WOUND OKAY / OSTOMY FUNCTIONING WELL/ TOLERATING SLOW TO FEEDS / ABDOMEN IS SOFT AND VAGUELY TENDER / DRAINAGE DECREASED / PLAN IS TO SLOWLY ADVANCE THE TUBE FEEDS / SHE MAY NEED FOLLOW-UP CT SCAN IF SHE GETS SICKER 11/23/16 13:47 afebrile/ ostomy ok/ wound ok/ uo adequate/ wbc down to 14k/ abd soft,minimally tender/ probably can dc vac soon 11/24/16 11:34 VITAL SIGNS STABLE/ AFEBRILE/ ABDOMEN SOFT/ WOUND VAC IN PLACE/ STARTING TO EAT SMALL AMOUNTS/ OSTOMY GOOD / POSITIVE BOWEL SOUNDS / MINIMAL JAS DRAINAGE / IMPROVING 11/27/16 07:55 AFEBRILE/ WOUND OK/ DRAINS OUT/ UO GREAT/ +OSTOMY OUTPUT Objective: Vital Signs Temp Pulse Resp BP Pulse Ox 36.4 C 112 H 18 119/83 H 100 11/27/16 07:52 11/27/16 07:52 11/27/16 07:52 11/27/16 07:52 11/27/16 07:52 Laboratory Results 11/25/16 05:45 11/25/16 05:45 11/26/16 11/27/16 11/28/16 05:59 05:59 05:59 Intake Total 1020 100 Output Total 2150 2100 Balance -1130 -1999 PT 15.4 SEC (12.0-15.0) H 11/22/16 06:40 INR 1.22 (0.83-1.16) H 11/22/16 06:40 ICD10 Worksheet Patient Problems: Problems Problem Status Onset Abdominal pain Acute Acute Crohn's disease Acute Abdominal pain, chronic, right lower quadrant Acute Bronchitis Acute Crohns disease Acute Crohns disease of small intestine Acute Intra-abdominal abscess Acute Malnutrition Acute
--- NOTE | 2016-11-27 10:04 | PCMIDPN ---
Assessment/Plan: #Polymicrobial peritonitis s/p anastomotic leak following open SB resection for management of Crohn's. Multiple surgical interventions now s/p abdominal closure 11/15 and all drains out as of 11/25. AF. ostomy continues to function well and patient with increasing activity --continue antibiotics to ertapenem for clostridium coverage + typical enterics --continue fluconazole for empiric annamaria coverage, --tentatively plan CT scan in approximately 7-10 days to assess duration of antibiotics # clostridium bacteremia 11/09 secondary to intra-abdominal process, 11/16 & 11/18 blood cx negative # Elevated LFTs preceded fluconazole therapy, LFTs stable after couple days of Diflucan # chest pain: Past on report of symptoms to primary care service meds Meropenem 1gm IV q8 # 10, antibiotics # 19 fluconazole 200mg PO daily # 2, anti fungal # 15 Subjective: c/o of constant non-pleuritic CP L side, spontaneous onset. Did not wake from sleep. No radiation, no SOB, no cough Objective: Vital Signs Temp Pulse Resp BP Pulse Ox 36.8 C 118 H 24 H 106/74 100 11/27/16 08:34 11/27/16 08:34 11/27/16 08:34 11/27/16 08:34 11/27/16 08:34 Laboratory Results 11/25/16 05:45 11/25/16 05:45 11/26/16 11/27/16 11/28/16 05:59 05:59 05:59 Intake Total 1020 100 Output Total 2150 2100 Balance -1130 -2000 Laboratory Tests 11/25/16 11/27/16 05:45 04:45 AST 70 H 70 H ALT 87 H 90 H Alkaline Phosphatase 195 H 173 H - Physical Exam General Appearance: alert, no apparent distress, thin EENT: pale conjunctiva, No thrush Respiratory: lungs clear, No accessory muscle use Cardiac/Chest: tachycardia Extremities: No pedal edema Abdomen: non-tender, soft, other (Ostomy bag with stool) Skin: No rash Neuro/Psych: alert, oriented x 3, depressed affect - Line/s RUE PICC Lines: No drainage, No erythema, No other (triple lumen) ICD10 Worksheet Patient Problems: Problems Problem Status Onset Abdominal pain Acute Acute Crohn's disease Acute Abdominal pain, chronic, right lower quadrant Acute Bronchitis Acute Crohns disease Acute Crohns disease of small intestine Acute Intra-abdominal abscess Acute Malnutrition Acute
[2016-11-27] MEDS ORDERED: ALPRAZolam 0.25 MG TAB PO PRN ×2 (10:19→10:21)
[2016-11-27] MEDS: predniSONE 5 MG TAB PO SCH ×2 (10:37→17:54)
--- NOTE | 2016-11-27 10:39 | HOSPPROG ---
Hospitalist Progress Note Assessment/Plan: This 71-year-old female new to my care on 11/25/16 with: *Acute chest pain (new problem) suspect anxiety -EKG was ordered and doesn't appear to show acute ischemic changes -send serial troponins -dimer (will likely be positive) -will consider cta chest if pain not improving or if she becomes hemodynamically compromised * SBO due to adhesions s/p SUHAIL/SB resection by Dr. Yee 11/04 * Leaking old ileocolic anastomosis with suspected Clostridium peritonitis/abd abscess s/p repeat OR w/ fluid collection washed out * Continue micafungin and meropenem per ID * elevated liver function tests * Possibly due to fluconazole * repeat lfts in AM * Crohn's disease, with chronic immunosuppression, potentially contributing stricture on presentation * s/p stress dose steroids * adjusted back to prednisone * Septic shock, resolved * Acute hypoxic respiratory failure, secondary suspected HCAP, NOT related to original surgery * cont high flow o2, extubated * acute encephalopathy * resolved * Healthcare associated pneumonia * Resolving * Chronic pain w/ continuous opiate dependency. High home opiate requirements, increasing PO oxy IR and uptitrate if needed for pain -home requirement is 15mg q6 * nutrition * On oral * disposition - continue inpatient care for now given new chest pain. DC to inpatient rehab once medically stable patient is high risk. Subjective: new onset shart left sided chest pain 8/10 constant since onset this morning. pain began at rest. pain is worse with inhalation. No alleviating factors. she think she may be having a panic attack. no shortness of breath. Denies fevers or chills Objective: Vital Signs Temp Pulse Resp BP Pulse Ox 36.8 C 118 H 24 H 106/74 100 11/27/16 08:34 11/27/16 08:34 11/27/16 08:34 11/27/16 08:34 11/27/16 08:34 Laboratory Results 11/25/16 05:45 11/25/16 05:45 11/26/16 11/27/16 11/28/16 05:59 05:59 05:59 Intake Total 1020 100 Output Total 2150 2100 Balance -1130 -2000 PT 15.4 SEC (12.0-15.0) H 11/22/16 06:40 INR 1.22 (0.83-1.16) H 11/22/16 06:40 - Physical Exam Constitutional: no apparent distress, appears nourished, not in pain Ears, Nose, Mouth, Throat: moist mucous membranes, hearing normal, ears appear normal, no oral mucosal ulcers Cardiovascular: regular rate and rhythym, no murmur, rub, or gallop, tachycardia Respiratory: no respiratory distress, no rales or rhonchi, clear to auscultation , other (no tenderness to palp over the anterior chest wall) Gastrointestinal: normoactive bowel sounds, soft, non-tender abdomen, no palpable masses, No guarding, No rebound ICD10 Worksheet Patient Problems: Problems Problem Status Onset Bronchitis Acute Malnutrition Acute Crohns disease Acute Intra-abdominal abscess Acute Abdominal pain, chronic, right lower quadrant Acute Crohns disease of small intestine Acute Abdominal pain Acute Acute Crohn's disease Acute
[2016-11-27] MEDS: PREGABALIN 50 MG CAP PO SCH ×2 (10:44→21:21)
[2016-11-27] MEDS: FLUCONAZOLE 100 MG TAB PO SCH (10:44)
[2016-11-27] MEDS: ACETAMINOPHEN 325 MG TAB PO PRN (10:49)
[2016-11-27] MEDS: FLUoxetine 20 MG CAP PO SCH (10:49)
[2016-11-27] MEDS: LIDOCAINE 5% 1 EA PATCH TD SCH (10:51)
[2016-11-27] MEDS: ENOXAPARIN 40 MG/0.4 ML SYR SC SCH (10:52)
[2016-11-27] MEDS: ERTAPENEM 1 GM in NS 100 ML IV SCH (10:56)
[2016-11-27] MEDS ORDERED: NS BOLUS 500 ML (Wide open) IV ONE ×2 (14:30→15:30)
[2016-11-27 17:39] LABS: % IMMATURE GRANULYOCYTES 0.6 % (0.0-1.1); ABSOLUTE IMMATURE GRANULOCYTES 0.07 10^3/uL (0.00-0.10); ADD DIFF? NO; ADD MORPH? NO; ADD SCAN? NO; ATYPICAL LYMPHOCYTE FLAG 40 (0-99); FRAGMENT RBC FLAG 0 (0-99); HEMATOCRIT 27.8 % (38.0-47.0); HEMOGLOBIN 8.9 g/dL (12.6-16.3); LEFT SHIFT FLG 0 (0-99); LIPEMIA HEMOLYSIS FLAG 80 (0-99); MEAN CELL HEMOGLOBIN 28.8 pg (27.9-34.1); MEAN PLATELET VOLUME 9.7 fL (8.7-11.7); PLATELET CLUMPS FLAG 0 (0-99); PLATELET COUNT 511 10^3/uL (150-400); RED BLOOD CELL COUNT 3.09 10^6/uL (4.18-5.33)
[2016-11-27 17:54] LABS: ANION GAP 7 mEq/L (8-16); CALCIUM 8.7 mg/dL (8.5-10.4); CARBON DIOXIDE 27 mEq/l (22-31); CHLORIDE 102 mEq/L (97-110); CREATININE 0.5 mg/dL (0.6-1.0); GLOMERULAR FILTRATION RATE > 60; GLUCOSE 102 mg/dL (70-100); POTASSIUM 4.3 mEq/L (3.5-5.2); SODIUM 136 mEq/L (134-144)
[2016-11-27 18:06] LABS: TROPONIN I < 0.012 ng/mL (0-0.034)
[2016-11-27] MEDS ORDERED: IOPAMIDOL (ISOVUE 370) 100 ML BTL IV ONE (18:50)
[2016-11-27] MEDS: PATCH REMOVAL 1 EA PATCH TD SCH (21:15)
[2016-11-27] MEDS: MELATONIN 3 MG TAB PO SCH (21:21)
[2016-11-28] MEDS: PREGABALIN 50 MG CAP PO SCH ×2 (09:40→21:58)
[2016-11-28] MEDS: LIDOCAINE 5% 1 EA PATCH TD SCH (09:40)
[2016-11-28] MEDS: predniSONE 5 MG TAB PO SCH ×2 (09:40→18:00)
[2016-11-28] MEDS: ERTAPENEM 1 GM in NS 100 ML IV SCH (09:40)
[2016-11-28] MEDS: FLUCONAZOLE 100 MG TAB PO SCH (09:40)
[2016-11-28] MEDS: FLUoxetine 20 MG CAP PO SCH (09:40)
[2016-11-28] MEDS: ENOXAPARIN 40 MG/0.4 ML SYR SC SCH (09:41)
--- NOTE | 2016-11-28 09:44 | PCMIDPN ---
Assessment/Plan: #Polymicrobial peritonitis with multifocal abscesses s/p anastomotic leak following open SB resection for management of Crohn's. Multiple surgical interventions now s/p abdominal closure 11/15 and all drains out as of 11/25.AF. WBC and platelets continue to improve. --continue antibiotics to ertapenem for clostridium coverage + typical enterics --continue fluconazole for empiric annamaria coverage, --repeat abdominal/pelivs CT scan w contrast 12/06 --antibiotics through 12/10 with re-assess CT prior to dc antibiotic to asses transition to PO antibiotics # clostridium bacteremia 11/09 secondary to intra-abdominal process, 11/16 & 11/18 blood cx negative # Elevated LFTs preceded fluconazole therapy, LFTs remain stable after couple days of Diflucan meds Meropenem 1gm IV q8 # 11, antibiotics # 20 fluconazole 200mg PO daily # 3, anti fungal # 16 CT 11/21: re-reviewed today, shows multifocal enhancing small fluid collections throughout abdomen suggestive of abscess Subjective: c/o being uncomfortable Objective: Vital Signs Temp Pulse Resp BP Pulse Ox 36.8 C 118 H 19 110/76 100 11/28/16 08:00 11/28/16 08:00 11/28/16 08:00 11/28/16 08:00 11/28/16 08:00 Laboratory Results 11/27/16 17:30 11/27/16 17:30 11/27/16 11/28/16 11/29/16 05:59 05:59 05:59 Intake Total 100 695 Output Total 2100 1525 Balance -2000 -830 General Appearance: alert, no apparent distress, thin EENT: pale conjunctiva, No thrush Respiratory: lungs clear, No accessory muscle use Cardiac/Chest: tachycardia Extremities: No pedal edema Abdomen: non-tender, soft, Ostomy bag with stool Skin: No rash Neuro/Psych: alert, oriented x 3, depressed affect RUE PICC:: No drainage, No erythema, -triple lumen ICD10 Worksheet Patient Problems: Problems Problem Status Onset Abdominal pain Acute Acute Crohn's disease Acute Abdominal pain, chronic, right lower quadrant Acute Bronchitis Acute Crohns disease Acute Crohns disease of small intestine Acute Intra-abdominal abscess Acute Malnutrition Acute
--- NOTE | 2016-11-28 09:48 | PDIAF ---
- Diagnosis Diagnosis: Multifocal abdominal abscess, clostridium bacteremia Code Status: Full Code - Medication Management Discharge Medications: Medications to Continue on Transfer FLUoxetine [Prozac 20 MG (*)] 60 mg PO DAILY 09/28/12 [Last Taken 11/01/16] Pregabalin [LYRICA] 100 mg PO BID 09/28/12 [Last Taken 11/01/16 09:00] Dicyclomine HCl 10 mg PO BID 09/28/13 [Last Taken 11/01/16 09:00] oxyCODONE IR [Oxycodone Ir (*)] 15 mg PO Q6 PRN 09/28/13 [Last Taken 12/01/15] Cholecalciferol Vit D3 [Vitamin D3 (*)] 1,000 units PO DAILY 05/17/14 [Last Taken 11/01/16] Herbals/Supplements -Info Only 1 ea PO DAILY 05/17/14 [Last Taken 11/01/16] Multivitamins [Multivitamin (*)] 1 each PO DAILY 05/17/14 [Last Taken 11/01/16] LORazepam [Ativan (*)] 0.25 mg PO BID #60 tab 12/05/15 [Last Taken 11/01/16] predniSONE [Prednisone] 5 mg PO BID 11/01/16 [Last Taken 11/01/16] 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 PICC Care - Routine: Yes - Labs/Radiology CBC Date: 12/06/16 (weekly, Tuesday) CMP Date: 12/06/16 (weekly Tuesday) Imaging Orders: CT abdomen and pelvis with contrast at [facility] on 12/06/16 Call or Fax Lab and Imaging Results to: [facility] [phone] - Follow Up Care Current Providers and Referrals: Tami Benitez MD [Medical Doctor] - 12/10/16 11:00 am Patient,NotPresent [Unknown] - As per Instructions
[2016-11-28] MEDS ORDERED: NS 1,000 ML IV ONE (10:21)
--- NOTE | 2016-11-28 10:26 | HOSPPROG ---
Hospitalist Progress Note Assessment/Plan: This 71-year-old female new to my care on 11/25/16 with: *Acute chest pain (resolved) suspect anxiety -neg trop x 2 -cta chest neg for PE *persistent tachycardia in the setting of prerenal azotemia -NS bolus and monitor *worsening anemia without signs of acute bleeding -repeat cbc in AM * SBO due to adhesions s/p SUHAIL/SB resection by Dr. Yee 11/04 * Leaking old ileocolic anastomosis with suspected Clostridium peritonitis/abd abscess s/p repeat OR w/ fluid collection washed out * Continue micafungin and meropenem per ID * elevated liver function tests * Possibly due to fluconazole * repeat lfts in AM * Crohn's disease, with chronic immunosuppression, potentially contributing stricture on presentation * s/p stress dose steroids * adjusted back to prednisone * Septic shock, resolved * Acute hypoxic respiratory failure, secondary suspected HCAP, NOT related to original surgery * cont high flow o2, extubated * acute encephalopathy * resolved * Healthcare associated pneumonia * Resolving * Chronic pain w/ continuous opiate dependency. High home opiate requirements, increasing PO oxy IR and uptitrate if needed for pain -home requirement is 15mg q6 * nutrition * On oral * disposition - continue inpatient care for now given new chest pain. DC to inpatient rehab once medically stable patient is high risk. Subjective: no chest pain. overall feeling better today than yesterday. no fevers or chills Objective: Vital Signs Temp Pulse Resp BP Pulse Ox 36.8 C 118 H 19 110/76 100 11/28/16 08:00 11/28/16 08:00 11/28/16 08:00 11/28/16 08:00 11/28/16 08:00 Laboratory Results 11/27/16 17:30 11/27/16 17:30 11/27/16 11/28/16 11/29/16 05:59 05:59 05:59 Intake Total 100 695 Output Total 2100 1525 Balance -2000 -830 PT 15.4 SEC (12.0-15.0) H 11/22/16 06:40 INR 1.22 (0.83-1.16) H 11/22/16 06:40 cta chest reviewed negative for PE Laboratory Tests 11/27/16 11/27/16 11:00 17:30 Troponin I < 0.012 < 0.012 - Physical Exam Constitutional: chronically ill appearing Cardiovascular: tachycardia, No systolic murmur, No JVD, No edema Respiratory: no respiratory distress, no rales or rhonchi, clear to auscultation , No rhonchi Gastrointestinal: normoactive bowel sounds, soft, non-tender abdomen, no palpable masses, No guarding, No rebound Genitourinary: no bladder fullness, no bladder tenderness, no renal bruits Skin: no rashes or abrasions, no fluctuance, no induration Neurologic: AAOx3 Psychiatric: interacting appropriately, not anxious, not encephalopathic, thought process linear ICD10 Worksheet Patient Problems: Problems Problem Status Onset Bronchitis Acute Malnutrition Acute Crohns disease Acute Intra-abdominal abscess Acute Abdominal pain, chronic, right lower quadrant Acute Crohns disease of small intestine Acute Abdominal pain Acute Acute Crohn's disease Acute
[2016-11-28] MEDS: oxyCODONE IR 5 MG TAB PO PRN ×2 (10:28→15:15)
--- NOTE | 2016-11-28 10:33 | SOAPPROG ---
SOAP Progress Note Assessment/Plan: Assessment: SP SB RESECTION FOR ADHESIVE STRICTURE/ PATH PENDING BUT NO OBVIOUS CROHNS AT SURGERY ABD SOFT WITH BS/ -FLATUS/ AFEBRILE, NONICTERIC CHEST CLEAR/ COR RR CONFUSED TODAY BUT PLEASANT/ DOESNT REMEMBER SURGERY/ CO A ROUGH NITE/ UO OK NEEDS MOBILIZATION Plan:AMBULATE/ ADD TORADOL/ MINIMIZE NARCS 11/06/16 11:06 11/07/16 08:36 still confused/ wound ok/ abd soft/ -flatus/ no bm/ path pending/ cxr basilar atelectasis/ wbc2.7k/ mobilize 11/09/16 13:54 DRAMATIC CHANGE TODAY/ MARKEDLY DISTENDED WITH ACTIVE BS/ MINIMAL FLATUS/ AFEBRILE/ WBC 2.6K WILL CHECK CT AND MOVE TO ICU 11/09/16 17:29 ct shows some free air and lots of ascites/ requiring pressors for bp/ uo diminished/ abd distended and tender risks and options fully discussed with pt and family who wish to proceed with urgent laparotomy 11/11/16 08:58 STABLE ON PEEP AT 10/ CXR BILATERAL FLUFFINESS/ WOUND OK/ LOW GRADE TEMP/ UO MASSIVE WITH DIURESIS/ ABD GOOD/ HCT 26 WOUND VAC CHANGE TODAY/ CONSIDER WOUND FASCIAL CLOSURE 11/11/16 12:31 PATIENT SEEN EARLIER TODAY. AFEBRILE AND STABLE VITAL SIGNS. PLAN IS A WOUND VAC CHANGE IN THE OR. 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 and slight distention / urine output is good / Pelvic JAS drain is putting out some cloudy fluid but the upper drain is putting out minimal serous fluid Unable to speak and mental status is in question but alert and follows the activities in the room / may need a head CT scan 11/18/16 09:45 low-grade temp / still with the non communication problem / wound okay / urine output grade / abdomen is soft and nontender / JAS drainage is still purulence from the pelvis Head CT was negative for any acute problem / chest CT shows bilateral pneumonia and effusion / abdominal CT is pending / patient is a setup for possible new abscess in her abdomen 11/19/16 19:44 AFEBRILE/ MENTAL STATUS IMPROVED/ WOUND OKAY / OSTOMY FUNCTIONING WELL/ TOLERATING SLOW TO FEEDS / ABDOMEN IS SOFT AND VAGUELY TENDER / DRAINAGE DECREASED / PLAN IS TO SLOWLY ADVANCE THE TUBE FEEDS / SHE MAY NEED FOLLOW-UP CT SCAN IF SHE GETS SICKER 11/23/16 13:47 afebrile/ ostomy ok/ wound ok/ uo adequate/ wbc down to 14k/ abd soft,minimally tender/ probably can dc vac soon 11/24/16 11:34 VITAL SIGNS STABLE/ AFEBRILE/ ABDOMEN SOFT/ WOUND VAC IN PLACE/ STARTING TO EAT SMALL AMOUNTS/ OSTOMY GOOD / POSITIVE BOWEL SOUNDS / MINIMAL JAS DRAINAGE / IMPROVING 11/27/16 07:55 AFEBRILE/ WOUND OK/ DRAINS OUT/ UO GREAT/ +OSTOMY OUTPUT 11/28/16 10:32 much happier and comfortable today/ wound healing well/ afebrile/ chest ct -/ eating/ ostomy ok/ snf soon Objective: Vital Signs Temp Pulse Resp BP Pulse Ox 36.8 C 118 H 19 110/76 100 11/28/16 08:00 11/28/16 08:00 11/28/16 08:00 11/28/16 08:00 11/28/16 08:00 Laboratory Results 11/27/16 17:30 11/27/16 17:30 11/27/16 11/28/16 11/29/16 05:59 05:59 05:59 Intake Total 100 695 Output Total 2100 1525 Balance -1999 -830 PT 15.4 SEC (12.0-15.0) H 11/22/16 06:40 INR 1.22 (0.83-1.16) H 11/22/16 06:40 ICD10 Worksheet Patient Problems: Problems Problem Status Onset Abdominal pain Acute Acute Crohn's disease Acute Abdominal pain, chronic, right lower quadrant Acute Bronchitis Acute Crohns disease Acute Crohns disease of small intestine Acute Intra-abdominal abscess Acute Malnutrition Acute
[2016-11-28] MEDS: ONDANSETRON 4 MG/2 ML VIAL IVP PRN (13:15)
[2016-11-28] MEDS: MELATONIN 3 MG TAB PO SCH (21:58)
[2016-11-28] MEDS: PATCH REMOVAL 1 EA PATCH TD SCH (21:59)
[2016-11-29 03:43] VITALS: RESP 16
[2016-11-29] MEDS: ACETAMINOPHEN 325 MG TAB PO PRN (05:08)
[2016-11-29 05:16] LABS: % IMMATURE GRANULYOCYTES 0.6 % (0.0-1.1); ABSOLUTE IMMATURE GRANULOCYTES 0.06 10^3/uL (0.00-0.10); ADD DIFF? NO; ADD MORPH? NO; ADD SCAN? NO; ATYPICAL LYMPHOCYTE FLAG 20 (0-99); FRAGMENT RBC FLAG 0 (0-99); HEMATOCRIT 25.8 % (38.0-47.0); HEMOGLOBIN 8.2 g/dL (12.6-16.3); LEFT SHIFT FLG 0 (0-99); LIPEMIA HEMOLYSIS FLAG 80 (0-99); MEAN CELL HEMOGLOBIN CONCENTR. 31.8 g/dL (32.4-36.7); MEAN CELL VOLUME 91.2 fL (81.5-99.8); MEAN PLATELET VOLUME 9.9 fL (8.7-11.7); PLATELET CLUMPS FLAG 10 (0-99); PLATELET COUNT 433 10^3/uL (150-400); RED BLOOD CELL COUNT 2.83 10^6/uL (4.18-5.33); RED CELL DISTRIBUTION WIDTH 16.3 % (11.5-15.2)
[2016-11-29 05:31] LABS: ANION GAP 9 mEq/L (8-16); CALCIUM 9.5 mg/dL (8.5-10.4); CARBON DIOXIDE 27 mEq/l (22-31); CHLORIDE 103 mEq/L (97-110); CREATININE 0.5 mg/dL (0.6-1.0); GLOMERULAR FILTRATION RATE > 60; GLUCOSE 93 mg/dL (70-100); POTASSIUM 4.7 mEq/L (3.5-5.2); SODIUM 139 mEq/L (134-144)
--- NOTE | 2016-11-29 09:33 | PCMIDPN ---
Assessment/Plan: Assessment: Septic shock and peritonitis-with bacteremia due to Clostridium ramosum. Currently covered with ertapenem and fluconazole. Leukocytosis resolved. Appears much stronger and more coherent today. Plan: 1. Continue current antibiotic regimen. 2. Follow clinical changes including vital signs and leukocytosis. 11/29/16 17:29 Subjective: Patient is conversing normally. She is eating a good breakfast. She states that she remains weak. Discussions about her hospital stay and peritonitis occurred. She denies any current fever or chills. Objective: Ertapenem # 1 Fluconazole # 4 Vital Signs Temp Pulse Resp BP Pulse Ox 36.9 C 94 16 120/79 99 11/29/16 03:42 11/29/16 03:42 11/29/16 03:42 11/29/16 03:42 11/29/16 03:42 Laboratory Results 11/29/16 05:00 11/29/16 05:00 11/28/16 11/29/16 11/30/16 05:59 05:59 05:59 Intake Total 695 1350 Output Total 1525 850 Balance -830 500 - Physical Exam General Appearance: WD/WN, alert, no apparent distress, non-toxic Respiratory: lungs clear, normal breath sounds, No respiratory distress Cardiac/Chest: regular rate, rhythm, No tachycardia Skin: normal color, warm/dry, No rash Neuro/Psych: alert, normal mood/affect, oriented x 3 ICD10 Worksheet Patient Problems: Problems Problem Status Onset Abdominal pain Acute Abdominal pain, chronic, right lower quadrant Acute Acute Crohn's disease Acute Bronchitis Acute Crohns disease Acute Crohns disease of small intestine Acute Intra-abdominal abscess Acute Malnutrition Acute
--- NOTE | 2016-11-29 11:54 | WOCRNPDOC ---
WOCRN Advanced Assessment Note - Skin Integrity Problem, Advanced Assess Abdomen Surgical Wound/Incision Dressing Type: Hydrofera Blue, LeukoMed with Pads Dressing Description: Clean/Dry, Intact Closure Description: Retention Sutures Exudate Amount: Scant Exudate Color: Reddish/Yellow Exudate Characteristic(s): Serosanguinous Integumentary Issue Intervention: Dressing Reinforced, Visualized Under Dressing , Hydrogel Applied Kenzie Wound Tissue: Intact Kenzie Wound Swelling: None Wound Bed Color: Red Wound Bed Constitution: Granulation Tissue Wound Edges: Epithelizing Skin Integrity Problem Comment: Removed secondary dressing to assess wound bed. Epithelialization noted all along wound margins, and red, beefy granulation tissue in wound bed. Topical collagen initiated since previous assessment on 11/26. Plan is to continue with current tx, as it is working well. Tegaderm dressing applied over the Hydrofera Blue. inspector fuel hose June present and assisting. Wound care will follow up with patient again on 11/29. Coccyx Dressing Type: Allevyn Life Dressing Description: Clean/Dry, Intact Exudate Amount: None Exudate Characteristic(s): None Integumentary Issue Intervention: Visualized Under Dressing Kenzie Wound Tissue: Blanching, Intact Kenzie Wound Swelling: None Wound Bed Color: Brown, Purple Site Measurement - Head-to-Toe Length X Width X Depth (cm): 0.6cmx0.8cmxocm Pressure Injury Stage: Deep Tissue Injury (DTI) (resolving) Skin Integrity Problem Comment: DTI noted on previous assessment on 11/25 is resolving, changing from dark purple to a brown/grimes color w/ dry, flaky skin. Kenzie-wound skin in intact and blanching. Patient's BMI remains very low, and she is still not moving very much, putting her at continued risk for pressure injuries. Continue w/ protective dressing, turns, and Accu-max w/ pump. inspector fuel hose June present and assisting.
--- NOTE | 2016-11-29 12:32 | PDIAF ---
- Diagnosis Diagnosis: Multifocal abdominal abscess, clostridium bacteremia Code Status: Full Code - Medication Management Discharge Medications: Medications to Continue on Transfer FLUoxetine [Prozac 20 MG (*)] 60 mg PO DAILY 09/28/12 [Last Taken 11/01/16] Pregabalin [LYRICA] 100 mg PO BID 09/28/12 [Last Taken 11/01/16 09:00] Dicyclomine HCl 10 mg PO BID 09/28/13 [Last Taken 11/01/16 09:00] oxyCODONE IR [Oxycodone Ir (*)] 15 mg PO Q6 PRN 09/28/13 [Last Taken 12/01/15] Cholecalciferol Vit D3 [Vitamin D3 (*)] 1,000 units PO DAILY 05/17/14 [Last Taken 11/01/16] Herbals/Supplements -Info Only 1 ea PO DAILY 05/17/14 [Last Taken 11/01/16] Multivitamins [Multivitamin (*)] 1 each PO DAILY 05/17/14 [Last Taken 11/01/16] LORazepam [Ativan (*)] 0.25 mg PO BID #60 tab 12/05/15 [Last Taken 11/01/16] Acetaminophen [Tylenol 325mg (*)] 650 mg PO Q4HRS PRN #0 tab 11/29/16 [Last Taken Unknown] Enoxaparin [Lovenox 40 MG (*)] 40 mg SC DAILY syr 11/29/16 [Last Taken Unknown] Ertapenem [INVanz] 1 gm IV DAILY vial 11/29/16 [Last Taken Unknown] Fluconazole [Diflucan (*)] 200 mg PO DAILY tab 11/29/16 [Last Taken Unknown] Lidocaine 5% [Lidoderm 5% Patch (*)] 1 ea TD DAILY patch 11/29/16 [Last Taken Unknown] Melatonin [Melatonin 3 MG (*)] 1.5 mg PO HS tab 11/29/16 [Last Taken Unknown] Ondansetron Odt [Zofran Odt 4 mg (*)] 4 mg PO Q4HRS PRN #0 tab 11/29/16 [Last Taken Unknown] Patch Removal 1 ea TD DAILY21 patch 11/29/16 [Last Taken Unknown] oxyCODONE IR [Oxycodone Ir (*)] 5 mg PO Q4HRS PRN #0 tab 11/29/16 [Last Taken Unknown] predniSONE 5 mg PO BIDMEAL #0 tab 11/29/16 [Last Taken Unknown] Clinical Rehabilitation Specialist Antibiotics: ertapenem 1gm IV daily, fluconazole 200mg PO daily Alf Antibiotic Stop Date: 12/10/16 Discharge Medications: Refer to the Discharge Home Medication list for PRN reason. PICC Care - Routine: Yes - Orders Diet Recommendation: no restrictions on diet Diet Texture: Regular Texture Diet - Labs/Radiology CBC Date: 12/06/16 (weekly, Tuesday) CMP Date: 12/06/16 (weekly Tuesday) Imaging Orders: CT abdomen and pelvis with contrast at [facility] on 12/06/16 Call or Fax Lab and Imaging Results to: lukas [phone] - Follow Up Care Current Providers and Referrals: Tami Benitez MD [Medical Doctor] - 12/10/16 11:00 am Patient,NotPresent [Unknown] - As per Instructions
--- NOTE | 2016-11-29 13:34 | GDS ---
[f rep st] DISCHARGE SUMMARY DISCHARGE DIAGNOSES: 1. Leaking ileocolic anastomosis with suspected clostridium peritonitis and abdominal abscess, stat us post washout. 2. Small bowel obstruction due to adhesions, status post lysis of adhesions, small bowel resection by Dr. Yee on 11/04/2016. 3. Transaminitis, possibly due to medications. 4. History of Crohn disease with chronic immunosuppression. 5. Resolved septic shock. 6. Resolved acute hypoxemic respiratory failure. 7. Resolved acute encephalopathy. 8. Healthcare-associated pneumonia. 9. Chronic pain with chronic continuous opioid dependency. 10. Resolved chest pain of unclear etiology. CONSULTANTS: Dr. Denis Doan, general surgery, [facility], [facility]. HOSPITAL COURSE AND STAY BY PROBLEM: 1. Abdominal pain, history of Crohn disease: The patient was admitted to the hospital, where she w as taken to the operating room initially on 11/04/2016, where she underwent laparoscopic lysis of ad hesions and open small bowel resection. She was taken back to the operating room on 11/09/2016, whe re she was found to have a perforated ileocolonic anastomosis with peritonitis and subsequently unde rwent an ileocolic resection with end ileostomy and peritoneal lavage, as well as drainage of a retr operitoneal abscess. Postprocedure, a wound VAC was placed. She was taken back to the operating ro om a third time on 11/11/2016, for repeat peritoneal lavage and replacement of an intraabdominal wou nd VAC. Postoperatively, her hospital stay has been complicated by respiratory failure and pneumoni a. She was cared for in the intensive care unit. She has been seen by Infectious Disease who are r ecommending that she complete an extended course of treatment with ertapenem and fluconazole. On da y of discharge, she is on her 20th day of antibiotics. Dr. Benitez has recommended that she continue the ertapenem and daily fluconazole to be stopped on 12/10/2016. She should have a repeat CT of th e abdomen and pelvis done on 12/06/2016. 2. Chest pain: The patient reported an episode of chest pain on 11/27/2016. She underwent a CT an tj of the chest that was negative for PE. Serial troponins were done that were negative. Chest pa in subsequently resolved. However, she continued to have some tachycardia, which resolved with IV h ydration. PHYSICAL EXAM: VITAL SIGNS: On day of discharge, blood pressure 124/83, heart rate 94, respiratory rate 16, O2 saturation 99% on 1 L, temperature afebrile. GENERAL: No acute distress, chronically ill-appearing. HEART: S1, S2. LUNGS: Clear. ABDOMEN: Soft. EXTREMITIES: No edema. PERTINENT LABS AND STUDIES: A CT angio of the chest done 11/27/2016, refer to report. Abdominal CT done 11/21/2016, refer to report. PROCEDURES THIS HOSPITAL STAY: Bronchoscopy done by Dr. Roy on 11/18/2016, for acute hypoxemic re spiratory failure with mucous plugging. Once again, she went to the operating room a total of 3 times; the first of which was on 11/05/2016, where she underwent lysis of adhesions, and then returned to the operating room on the for rep air of her anastomotic leak and washout, with return to the operating room on 11/11/2016. DISCHARGE MEDICATIONS: Please refer to discharge medication reconciliation in [facility]. DISCHARGE INSTRUCTIONS: The patient will be transferred to senior living facility for further ashlie abilitation. She should have monitoring of her LFTs to ensure they normalize. She should undergo r epeat CT of the abdomen on 12/06/2016. She should follow up with Dr. Benitez as directed. Once agai n, she should remain on IV ertapenem and fluconazole through 12/10/2016. Greater than 30 minutes were spent on the discharge of this patient. /[id number]/MODL
[2016-11-29 14:54] VITALS: BP 100/68; PULSE 110; TEMP 98.6; O2SAT 93
== END 2016-11-29 14:40 | DRG 329 ==
LOC: EDUNIT# → F1N 20:37 → OBSVTOIN 11-02 13:55 → F2N 11-09 12:30 → F1N 11-22 15:17
PROVIDERS: ADMIT Internal Medicine; ATTEND Family Medicine
PROC: 0DB80ZX Excision of Small Intestine, Open Approach, Diagnostic (ICD-10-PCS; 2016-11-04 14:30)
PROC: 0DN80ZZ Release Small Intestine, Open Approach (ICD-10-PCS; 2016-11-04 14:30)
PROC: 0W9G0ZX Drainage of Peritoneal Cavity, Open Approach, Diagnostic (ICD-10-PCS; 2016-11-04 14:30)
PROC: 5A1955Z Respiratory Ventilation, Greater than 96 Consecutive Hours (ICD-10-PCS; 2016-11-09)
PROC: 02HV33Z Insertion of Infusion Device into Superior Vena Cava, Percutaneous Approach (ICD-10-PCS; 2016-11-09)
PROC: 2W13X6Z Compression of Abdominal Wall using Pressure Dressing (ICD-10-PCS; principal; 2016-11-09 20:30)
PROC: 0D1B0Z4 Bypass Ileum to Cutaneous, Open Approach (ICD-10-PCS; principal; 2016-11-09 20:30)
PROC: 0W9G0ZZ Drainage of Peritoneal Cavity, Open Approach (ICD-10-PCS; principal; 2016-11-09 20:30)
PROC: 0DN80ZZ Release Small Intestine, Open Approach (ICD-10-PCS; principal; 2016-11-09 20:30)
PROC: 0W9H0ZZ Drainage of Retroperitoneum, Open Approach (ICD-10-PCS; principal; 2016-11-09 20:30)
PROC: 0DBB0ZX Excision of Ileum, Open Approach, Diagnostic (ICD-10-PCS; principal; 2016-11-09 20:30)
PROC: 0W9G0ZZ Drainage of Peritoneal Cavity, Open Approach (ICD-10-PCS; 2016-11-11)
PROC: 30233N1 Transfusion of Nonautologous Red Blood Cells into Peripheral Vein, Percutaneous Approach (ICD-10-PCS; 2016-11-12)
PROC: 0W9G0ZZ Drainage of Peritoneal Cavity, Open Approach (ICD-10-PCS; 2016-11-13)
PROC: 3E0G36Z Introduction of Nutritional Substance into Upper GI, Percutaneous Approach (ICD-10-PCS; 2016-11-13)
PROC: 0WQF0ZZ Repair Abdominal Wall, Open Approach (ICD-10-PCS; 2016-11-15)
PROC: 0W9G0ZZ Drainage of Peritoneal Cavity, Open Approach (ICD-10-PCS; 2016-11-15)
PROC: 0B9J8ZX Drainage of Left Lower Lung Lobe, Via Natural or Artificial Opening Endoscopic, Diagnostic (ICD-10-PCS; 2016-11-18)
DX: K91.89 Other postprocedural complications and disorders of digestive system (principal); K50.014 Crohn's disease of small intestine with abscess; K50.012 Crohn's disease of small intestine with intestinal obstruction; K56.5 Intestinal adhesions [bands] with obstruction (postinfection); A41.89 Other specified sepsis; R65.21 Severe sepsis with septic shock; K65.8 Other peritonitis; J96.01 Acute respiratory failure with hypoxia; G93.40 Encephalopathy, unspecified; E43 Unspecified severe protein-calorie malnutrition; E11.9 Type 2 diabetes mellitus without complications; G89.29 Other chronic pain; F11.20 Opioid dependence, uncomplicated; J18.9 Pneumonia, unspecified organism; R74.0 Nonspecific elevation of levels of transaminase and lactic acid dehydrogenase [LDH]; M41.9 Scoliosis, unspecified; Z79.52 Long term (current) use of systemic steroids; Z98.1 Arthrodesis status; Z23 Encounter for immunization
CPT/HCPCS: 82947-QW; 87186-90; 92507-GN; 92523-GN; 92610-GN; 96374; 97116-GP; 97161-GP; 97164-GP; 97167-GO; 97530-GO; 97530-GP; 97535-GO; C1751; C1765; G0009; G0378; G8978-GP-CJ; G8978-GP-CM; G8979-GP-CI; G8979-GP-CJ; G8980-GP-CJ; G8987-GO-CN; G8988-GO-CK; G8996-GN-CH; G8997-GN-CH; G8998-GN-CH; G9168-GN-CK; G9168-GN-CL; G9169-GN-CK; G9169-GN-CL; G9170-GN-CL; G9171-GN-CK; J0694; J1100; J1170; J1335; J1450; J1650; J1815; J1885; J1940; J1956; J2060; J2185; J2248; J2250; J2370; J2405; J2704; J2997; J3010; J3370; P9016; P9041; P9047; Q9967

== ENCOUNTER 2016-12-06 14:13 | Inpatient (IN) | payer OTHER ==
[2016-12-06] MEDS ORDERED: NS 1,000 ML IV ONE ×2 (15:11→16:15)
--- NOTE | 2016-12-06 15:20 | EDPHY ---
H & P Stated Complaint: AMS, sent here via cab from [facility] for r/o brain bleed. ruth in [facility] Time Seen by Provider: 12/06/16 14:56 HPI/ROS: CHIEF COMPLAINT: Unknown HISTORY OF PRESENT ILLNESS: Patient is a 71-year-old female who states she does not know why she is here. According to senior care paperwork she was sent here for follow-up CT scan of her abdomen and pelvis. She was admitted last month to our hospital initially with a small-bowel obstruction and a history of Crohn's disease that required lysis of adhesions and small-bowel resection. She was then taken back on November 08 for she has found have a perforated the anastomosis peritonitis and no went a further resection and ileostomy and a retroperitoneal abscess was drained. She has had a wound VAC and chronic abdominal wound treatment since that time. Her course was complicated by pneumonia for which she stayed in the ICU and was on an extended course of ertapenem and fluconazole. Is she continues to take these through a PICC line. They are set to discontinue on the . They also recommended at discharge that she have repeat CT of her abdomen done today. She was sent here today by dre from her senior care to have this imaging done of her abdomen. The registration staff noticed that she seemed confused and spoke with ER triage nurse who then checked into the emergency department. The triage nurse is telling us that she is here to get a head CT to rule out head bleed although I am not sure that this is accurate. Patient tells me that she is feeling well and has no complaints. She is slightly confused but states that this is her baseline. At triage her temperature is 38 degrees although here in the room was 36.6. She is mildly tachycardic. She denies recent falls or head injury. She denies any pain. She denies GI symptoms. REVIEW OF SYSTEMS: Constitutional: See HPI EENTM: denies: blurred vision, double vision, nose congestion Respiratory: denies: cough, shortness of breath Cardiac: denies: chest pain, irregular heart rate, lightheadedness, palpitations Gastrointestinal/Abdominal: See HPI Genitourinary: denies: dysuria, frequency, hematuria, pain Musculoskeletal: denies: joint pain, muscle pain Skin: denies: lesions, rash, jaundice, bruising Neurological: denies: headache, numbness, paresthesia, tingling, dizziness, weakness Hematologic/Lymphatic: denies: blood clots, easy bleeding, easy bruising Immunologic/allergic: denies: HIV/AIDS, transplant EXAM: GENERAL: Thin, cachectic HEAD: Atraumatic, normocephalic. EYES: Pupils equal round and reactive to light, extraocular movements intact, sclera anicteric, conjunctiva are normal. ENT: TMs normal, nares patent, oropharynx clear without exudates. Moist mucous membranes. NECK: Normal range of motion, supple without lymphadenopathy or JVD. LUNGS: Breath sounds clear to auscultation bilaterally and equal. No wheezes rales or rhonchi. HEART: Regular rate and rhythm without murmurs, rubs or gallops. ABDOMEN: Ostomy in place, wounds clean and dress, mild dehiscence and drainage of the abdominal incision, no erythema BACK: No CVA tenderness, no spinal tenderness, step-offs or deformities EXTREMITIES: Normal range of motion, no pitting or edema. No clubbing or cyanosis. NEUROLOGICAL: Cranial nerves II through XII grossly intact. Normal speech, normal gait. 5/5 strength, normal movement in all extremities, normal sensation PSYCH: Normal mood, normal affect. SKIN: Warm, dry, normal turgor, no visible rashes or lesions. Source: Patient Exam Limitations: No limitations - Personal History Current Tetanus/Diphtheria Vaccine: Yes Current Tetanus Diphtheria and Acellular Pertussis (TDAP): Yes Tetanus Vaccine Date: >10 YEARS - Medical/Surgical History Hx Asthma: No Hx Chronic Respiratory Disease: No Hx Diabetes: No Hx Cardiac Disease: No Hx Renal Disease: No Hx Cirrhosis: No Hx Alcoholism: No Hx HIV/AIDS: No Hx Splenectomy or Spleen Trauma: No Other PMH: pmh- Depression, Chrons, DD scoliosis, SBO. psh- bowel resection 1997, breast augmentation, c-spine fusion, tubal ligation - Family History Significant Family History: No pertinent family hx - Social History Smoking Status: Light smoker Alcohol Use: Sober Drug Use: None Constitutional: Initial Vital Signs Temperature (C) 38 C 12/06/16 14:17 Heart Rate 116 H 12/06/16 14:17 Respiratory Rate 16 12/06/16 14:17 Blood Pressure 158/142 H 12/06/16 14:17 O2 Sat (%) 99 12/06/16 14:17 O2 Delivery Mode Nasal Cannula O2 (L/minute) 2 Allergies/Adverse Reactions: fentanyl [Fentanyl] Allergy (Severe, Verified 05/14/14 20:23) WEIGHT LOSS, MEMORY LOSS gabapentin [From Neurontin] Allergy (Severe, Verified 05/14/14 20:23) Rash Penicillins Allergy (Severe, Verified 05/14/14 20:23) SEIZURES Sulfa (Sulfonamide Antibiotics) Allergy (Severe, Verified 05/14/14 20:23) NAUSEA morphine Allergy (Unknown, Verified 05/14/14 20:23) PT BECOMES "MEAN" tramadol [Tramadol] Allergy (Unknown, Verified 05/14/14 20:23) azathioprine [From Imuran] Allergy (Verified 12/01/15 11:22) Rash azathioprine sodium [From Imuran] Allergy (Verified 12/01/15 11:22) Rash budesonide [From Entocort EC] Allergy (Verified 12/01/15 11:24) Rash infliximab [From Remicade] Allergy (Verified 12/01/15 11:23) Itching mesalamine [From Pentasa] Allergy (Verified 12/01/15 11:23) Rash Home Medications: Medication Instructions Recorded Acetaminophen [Tylenol 325mg (*)] 650 mg PO Q4H PRN 12/06/16 Cholecalciferol Vit D3 [Vitamin D3 1,000 units PO DAILY 12/06/16 (*)] Dicyclomine [Bentyl 10 MG (*)] 10 mg PO BID 12/06/16 Enoxaparin [Lovenox 40 MG (*)] 40 mg SQ DAILY 12/06/16 FLUoxetine [Prozac 20 MG (*)] 60 mg PO DAILY 12/06/16 LORazepam [Ativan (*)] 0.5 mg PO BID 12/06/16 Lidocaine 5% [Lidoderm 5% Patch 1 ea TD DAILY 12/06/16 (*)] Melatonin [Melatonin 3 MG (*)] 1.5 mg PO HS 12/06/16 Multivitamins [Multivitamin (*)] 1 each PO DAILY 12/06/16 Ondansetron Odt [Zofran Odt 4 mg 4 mg PO Q4 PRN 12/06/16 (*)] Pregabalin [LYRICA] 100 mg PO BID 12/06/16 oxyCODONE IR [Oxycodone Ir (*)] 10 mg PO Q4H PRN 12/06/16 predniSONE 5 mg PO BID 12/06/16 Medical Decision Making - Diagnostics EKG Interpretation: An EKG obtained and was read and documented in trace view. Please see trace view for full reading and report. Sinus tachycardia, nonspecific QRS widening, unchanged from previous ED Course/Re-evaluation: Patient qualifies as severe sepsis but not septic shock. She did have a fever triage but on 2 checks here in the department she does not. Tachycardia is resolved with fluids. White blood cell count is slightly elevated. No obvious source of infection at this point. According to her over the phone she is altered mental status. I will start her on antibiotics and admit to the hospitalist service. 5:55 p.m. I discussed the case with Dr. Tory De La Rosa who will admit to the medical service. Differential Diagnosis: Partial list of the Differential diagnosis considered include but were not limited to; sepsis, urinary tract infection, abdominal infection and although unlikely based on the history and physical exam, I also considered seizure, head injury, stroke, meningitis. Critical Care Time: Critical care time spent by me, Dr. Braun exclusive with this patient was 45 minutes, exclusive of the PA time exclusive of procedures. The organ system that was at risk was cardiovascular and I gave IV fluids, antibiotics, multiple discussions with senior care staff and family and admission to prevent worsening of the patient's condition - Data Points Laboratory Results: Laboratory Results 12/06/16 15:00 12/06/16 15:00 Medications Given: Discontinued Medications Sodium Chloride (Ns) 1,000 mls @ 0 mls/hr IV ONCE ONE; Wide Open PRN Reason: Protocol Stop: 12/06/16 15:12 Last Admin: 12/06/16 15:24 Dose: 1,000 mls Sodium Chloride (Ns) 1,000 mls @ 0 mls/hr IV ONCE ONE; Wide Open PRN Reason: Protocol Stop: 12/06/16 16:16 Last Admin: 12/06/16 16:49 Dose: 1,000 mls Ertapenem 1 gm/ Sodium (Chloride) 100 mls @ 200 mls/hr IV EDNOW ONE PRN Reason: Protocol Stop: 12/06/16 18:14 Last Admin: 12/06/16 18:57 Dose: 100 mls Departure - Departure Disposition: [facility] Clinical Impression: Severe sepsis Altered mental status Qualifiers: Altered mental status type: unspecified Qualified Code(s): R41.82 - Altered mental status, unspecified Condition: Fair
[2016-12-06 15:31] LABS: INR 1.15 (0.83-1.16); PROTIME(PATIENT) 14.6 SEC (12.0-15.0)
[2016-12-06 15:32] LABS: % IMMATURE GRANULYOCYTES 0.7 % (0.0-1.1); ABSOLUTE IMMATURE GRANULOCYTES 0.08 10^3/uL (0.00-0.10); ADD DIFF? NO; ADD MORPH? NO; ADD SCAN? NO; ATYPICAL LYMPHOCYTE FLAG 0 (0-99); FRAGMENT RBC FLAG 0 (0-99); HEMATOCRIT 32.5 % (38.0-47.0); HEMOGLOBIN 10.1 g/dL (12.6-16.3); LEFT SHIFT FLG 10 (0-99); LIPEMIA HEMOLYSIS FLAG 80 (0-99); MEAN CELL HEMOGLOBIN 28.5 pg (27.9-34.1); MEAN CELL HEMOGLOBIN CONCENTR. 31.1 g/dL (32.4-36.7); MEAN CELL VOLUME 91.8 fL (81.5-99.8); PLATELET CLUMPS FLAG 10 (0-99); PLATELET COUNT 499 10^3/uL (150-400); RED BLOOD CELL COUNT 3.54 10^6/uL (4.18-5.33); RED CELL DISTRIBUTION WIDTH 17.8 % (11.5-15.2)
[2016-12-06 15:35] LABS: ALANINE AMINOTRANSFERASE 105 IU/L (9-52); ALBUMIN 4.1 g/dL (3.5-5.0); ALKALINE PHOSPHATASE 160 IU/L (38-126); ANION GAP 14 mEq/L (8-16); ASPARTATE AMINOTRANSFERASE 68 IU/L (14-46); BILIRUBIN,TOTAL 0.7 mg/dL (0.1-1.4); BILIRUBIN-CONJUGATED 0.5 mg/dL (0.0-0.5); BILIRUBIN-UNCONJUGATED 0.2 mg/dL (0.0-1.1); CALCIUM 10.7 mg/dL (8.5-10.4); CARBON DIOXIDE 22 mEq/l (22-31); CHLORIDE 100 mEq/L (97-110); CREATININE 0.6 mg/dL (0.6-1.0); GLOMERULAR FILTRATION RATE > 60; GLUCOSE 118 mg/dL (70-100); POTASSIUM 5.2 mEq/L (3.5-5.2); SODIUM 136 mEq/L (134-144); TOTAL PROTEIN 7.4 g/dL (6.3-8.2)
--- NOTE | 2016-12-06 15:35 | CPEKG ---
Heart Rate: 108 RR Interval: 556 P-R Interval: 120 QRSD Interval: 82 QT Interval: 324 QTC Interval: 435 P [place]: 43 QRS [place]: 68 T Wave [place]: 95 EKG Severity - ABNORMAL ECG - EKG Impression: SINUS TACHYCARDIA EKG Impression: NONSPECIFIC T ABNORMALITIES, LATERAL LEADS EKG Impression: Similar to previous Electronically Signed By: Alex Braun 06-Dec-2016 15:39:27
[2016-12-06] MEDS ORDERED: IOPAMIDOL (ISOVUE-300) 100 ML BTL ONE (16:08)
[2016-12-06 16:35] LABS: COLOR YELLOW; LEUKOCYTE ESTERASE,URINE NEGATIVE (NEGATIVE); NITRITE,URINE NEGATIVE (NEGATIVE)
[2016-12-06 16:41] LABS: HYALINE CASTS 25-50 /lpf (0-1); MUCUS TRACE /lpf (NONE-1+)
[2016-12-06 16:55] LABS: WBC,URINE 0-1 /hpf (0-3)
[2016-12-06] MEDS ORDERED: ERTAPENEM 1 GM in NS 100 ML IV ONE (17:45)
[2016-12-06] MEDS ORDERED: ACETAMINOPHEN 325 MG TAB PO PRN (21:47)
--- NOTE | 2016-12-06 22:35 | GHP ---
[f rep st] HISTORY AND PHYSICAL DATE OF ADMISSION: 12/06/2016 CHIEF COMPLAINT: Confusion. HISTORY: The patient is a 71-year-old female, who recently had a small bowel obstruction due to adh esions. She underwent lysis of adhesions and small-bowel resection. She went back to the operating room 5 days later with a perforated anastomosis with peritonitis. She got an ileostomy and had mul tiple abscesses drained. She had an open wound with a wound VAC. She was intubated in the ICU. [facility] plan was IV Invanz and fluconazole through December 10. Plan was for repeat CT scan as an outpatient today. Per this determined schedule, [facility] sent her to the hospital today for her CT scan of the abdom en. At registration when she was trying to check in, she was noted to be very confused and she was diverted to the emergency room. Her partner does say things have been going poorly at the SNF. She has had progressive confusion, worsening ever since she got there. She is refusing to eat, she is not walking, she is losing weight. She talks only in a whisper and she has had multiple falls at [facility], falling out of bed and falling to the ground. PAST MEDICAL HISTORY: 1. Crohn disease. 2. Scoliosis. PAST SURGICAL HISTORY: Cervical fusion. MEDICATIONS: Please see computer record for full detailed list. ALLERGIES: To penicillin, gabapentin and fentanyl. SOCIAL HISTORY: No smoking. No alcohol. She lives with her common-law . Currently at [facility] recovering from this illness. Power of state attorney is her daughter. REVIEW OF SYSTEMS: Complete review of systems is obtained. Review of systems is negative regarding constitutional, HEENT, GI, pulmonary, cardiovascular, , hematology, skin, musculoskeletal, endocr ine, psych. For pertinent positives and negatives as in HPI. FAMILY HISTORY: Reviewed, noncontributory. PHYSICAL EXAMINATION: GENERAL: Well-developed, well-nourished female in no acute distress. VITAL SIGNS: Temperature 38, pulse 116, blood pressure 138/86, saturating 92% on room air. EYES: Normal conjunctivae. Pupils equal, round, reactive to light. ENT: Normal ears and nose. Hearing intact. Normal lips and teeth. Oropharynx moist. NECK: Trachea midline. No thyromegaly. CHEST: Henny l effort. Lungs clear to auscultation bilaterally. CARDIOVASCULAR: Regular rhythm. No murmur. N o lower extremity edema. ABDOMEN: Soft, nontender. No hepatosplenomegaly. Her ileostomy bag is i n place. SKIN: Warm, dry, intact without rash. MUSCULOSKELETAL: No cyanosis or clubbing. Streng th 5/5 upper and lower extremities. NEUROLOGIC: Cranial nerves intact. Normal sensation to light touch. PSYCH: She is confused and tangential, not able to give a good linear history. Belligerent at times. Poor memory. LABORATORY DATA: White count 11.17, hematocrit 32.5, platelets 499. Sodium 136, potassium 5.2, chl oride 100, bicarb 22, BUN 29, creatinine 0.6, glucose 118. Urinalysis is negative. Lactate is 2.1. AST 60, ALT is 105, head CT is negative. Chest x-ray is negative. EKG viewed by me. My personal interpretation is sinus tachycardia. No ST or T wave changes. CT scan of the abdomen and pelvis s hows a 3 cm fluid collection at the right side of the liver. Medical records reviewed. I reviewed all records from her recent hospitalization including her comp licated surgical course in ICU stay. ASSESSMENT/PLAN: 1. Peritonitis with abscess status post anastomotic leak. She is supposed to be on IV Invanz and o ral fluconazole through December 10. For some reason, I do not see these on her home medication list fr [facility], so probably need to confirm that she is receiving them. Her followup CT scan does sh ow a persistent 3 cm fluid collection which we could consider draining. I will consult Infectious D bar, as they are following her for her long-term antibiotics. 2. Sepsis. She does meet sepsis criteria with fever, leukocytosis and tachycardia. This is perhap s severe sepsis given her metabolic encephalopathy on presentation. Her lactate is mildly elevated. 3. Small bowel obstruction status post lysis of adhesions and resection, complicated by anastomotic leak requiring ileostomy. We will consult the wound RN to follow regarding ostomy care. 4. Crohn disease. She is on chronic prednisone which will be continued. 5. Malnutrition. Reportedly she is losing weight and not eating at the Nursing Facility. We will consult Dietary. 6. Metabolic encephalopathy. She was clearly confused at presentation. I suspect this is due to h er overall medical illness. CODE STATUS: Full. ADMISSION STATUS: We will admit to inpatient as she is medically complex. Anticipate greater than 2 midnights will be required. DVT PROPHYLAXIS: She is high risk. Will place on subcu Lovenox. /[id number]/MODL
[2016-12-07] MEDS: NS 1,000 ML IV SCH ×2 (01:37→12:07)
[2016-12-07 05:04] LABS: % IMMATURE GRANULYOCYTES 0.4 % (0.0-1.1); ABSOLUTE IMMATURE GRANULOCYTES 0.04 10^3/uL (0.00-0.10); ADD DIFF? NO; ADD MORPH? NO; ADD SCAN? NO; ATYPICAL LYMPHOCYTE FLAG 0 (0-99); FRAGMENT RBC FLAG 0 (0-99); HEMATOCRIT 26.9 % (38.0-47.0); HEMOGLOBIN 8.3 g/dL (12.6-16.3); LEFT SHIFT FLG 30 (0-99); LIPEMIA HEMOLYSIS FLAG 80 (0-99); MEAN CELL HEMOGLOBIN 28.8 pg (27.9-34.1); MEAN CELL HEMOGLOBIN CONCENTR. 30.9 g/dL (32.4-36.7); MEAN CELL VOLUME 93.4 fL (81.5-99.8); MEAN PLATELET VOLUME 9.8 fL (8.7-11.7); PLATELET CLUMPS FLAG 0 (0-99); PLATELET COUNT 363 10^3/uL (150-400); RED BLOOD CELL COUNT 2.88 10^6/uL (4.18-5.33); RED CELL DISTRIBUTION WIDTH 17.7 % (11.5-15.2)
[2016-12-07 05:12] LABS: INR 1.13 (0.83-1.16); PROTIME(PATIENT) 14.4 SEC (12.0-15.0)
[2016-12-07 05:31] LABS: ALANINE AMINOTRANSFERASE 81 IU/L (9-52); ALKALINE PHOSPHATASE 114 IU/L (38-126); ANION GAP 9 mEq/L (8-16); ASPARTATE AMINOTRANSFERASE 46 IU/L (14-46); BILIRUBIN,TOTAL 0.5 mg/dL (0.1-1.4); BILIRUBIN-CONJUGATED 0.4 mg/dL (0.0-0.5); BILIRUBIN-UNCONJUGATED 0.1 mg/dL (0.0-1.1); CARBON DIOXIDE 21 mEq/l (22-31); CHLORIDE 108 mEq/L (97-110); CREATININE 0.5 mg/dL (0.6-1.0); GLOMERULAR FILTRATION RATE > 60; GLUCOSE 93 mg/dL (70-100); SODIUM 138 mEq/L (134-144); TOTAL PROTEIN 5.6 g/dL (6.3-8.2)
[2016-12-07] MEDS ORDERED: ENOXAPARIN 40 MG/0.4 ML SYR SC SCH (09:00)
[2016-12-07] MEDS: predniSONE 5 MG TAB PO SCH ×2 (10:04→20:45)
[2016-12-07] MEDS: FLUCONAZOLE 100 MG TAB PO SCH (10:04)
[2016-12-07] MEDS: DICYCLOMINE 10 MG CAP PO SCH ×2 (10:04→20:45)
[2016-12-07] MEDS: FLUoxetine 20 MG CAP PO SCH (10:05)
[2016-12-07] MEDS: PREGABALIN 100 MG CAP PO SCH ×2 (10:05→20:45)
[2016-12-07] MEDS: LORazepam 0.5 MG TAB PO SCH ×2 (10:05→20:45)
[2016-12-07] MEDS: LIDOCAINE 5% 1 EA PATCH TD SCH (10:06)
[2016-12-07] MEDS: ERTAPENEM 1 GM in NS 100 ML IV SCH (10:14)
--- NOTE | 2016-12-07 12:14 | PCMIDPN ---
Assessment/Plan: Assessment/Plan: 1. Peritonitis/abscess secondary to anastomotic leak: s/p multiple wash outs (, 11/11, 11/13, 11/15) - On invanz and fluconazole - Ct abd with small residual collection noted: 3 x 1.2 cm in RUQ -Tentative previous end date was supposed to be 12/10 but will likely be extended given residual collection -wbc improved overall. LFt improved, creatinine stable. -blood cx pending. Meds invanz 1g daily fluconazole 200mg daily Subjective: Readmited due to fever ,leukocytosis, confusion and weakness. Afebrile. voice soft. Mostly oriented. Denies abd pain as such. Denies sob. c/o weakness all over. Requiring 2 person assist to get to commode. Objective: Vital Signs Temp Pulse Resp BP Pulse Ox 36.8 C 89 16 97/61 L 100 12/07/16 08:19 12/07/16 11:05 12/07/16 11:05 12/07/16 11:05 12/07/16 11:05 Laboratory Results 12/07/16 04:40 12/07/16 04:40 12/06/16 12/07/16 12/08/16 05:59 05:59 05:59 Intake Total 2558 Output Total 300 300 Balance 2258 -300 - Physical Exam General Appearance: alert, no apparent distress Respiratory: lungs clear Cardiac/Chest: regular rate, rhythm Extremities: No swelling Abdomen: normal bowel sounds, non-tender, soft, other (ostomy noted ), No distended Skin: No erythema ICD10 Worksheet Patient Problems: Problems Problem Status Onset Altered mental status Acute Severe sepsis Acute Abdominal pain Acute Abdominal pain, chronic, right lower quadrant Acute Acute Crohn's disease Acute Bronchitis Acute Crohns disease Acute Crohns disease of small intestine Acute Intra-abdominal abscess Acute Malnutrition Acute
--- NOTE | 2016-12-07 12:21 | HOSPPROG ---
Hospitalist Progress Note Assessment/Plan: Patient is a 71 y/o female who recently had a SBO secondary to adhesions. She underwent lysis of adhesions and small bowel resection. 5 days later, she developed peritonitis, got an ileostomy and multiple abscesses drained. She came to the hospital for a f/u CT scan and was noted to be very confused. She was admitted for further care. Today is my first encounter w the patient, chart reviewed. 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 Objective: Vital Signs Temp Pulse Resp BP Pulse Ox 36.8 C 89 16 97/61 L 100 12/07/16 08:19 12/07/16 11:05 12/07/16 11:05 12/07/16 11:05 12/07/16 11:05 Laboratory Results 12/07/16 04:40 12/07/16 04:40 12/06/16 12/07/16 12/08/16 05:59 05:59 05:59 Intake Total 2558 Output Total 300 300 Balance 2258 -300 PT 14.4 SEC (12.0-15.0) 12/07/16 04:40 INR 1.13 (0.83-1.16) 12/07/16 04:40 - Physical Exam Constitutional: chronically ill appearing, cachectic Eyes: PERRL Ears, Nose, Mouth, Throat: dry mucous membranes Cardiovascular: regular rate and rhythym Respiratory: no respiratory distress, reduced air movement Gastrointestinal: normoactive bowel sounds, other (ostomy with liquidy output) Skin: warm Musculoskeletal: generalized weakness Neurologic: other (alert but only speaks in a whisper) Psychiatric: interacting appropriately ICD10 Worksheet Patient Problems: Problems Problem Status Onset Altered mental status Acute Severe sepsis Acute Abdominal pain Acute Abdominal pain, chronic, right lower quadrant Acute Acute Crohn's disease Acute Bronchitis Acute Crohns disease Acute Crohns disease of small intestine Acute Intra-abdominal abscess Acute Malnutrition Acute
--- NOTE | 2016-12-07 18:35 | WOCRNPDOC ---
[facility] Advanced Assessment Note - Skin Integrity Problem, Advanced Assess Distal Abdomen Surgical Wound/Incision Dressing Type: Mepilex Border Dressing Description: Intact Exudate Amount: Scant Exudate Color: Red Exudate Characteristic(s): Dried Integumentary Issue Intervention: Dressing Changed (Replicare hydrocolloid), Dressing Initialed & Dated Kenzie Wound Tissue: Intact Kenzie Wound Swelling: None Wound Bed Color: [place], Red Wound Bed Constitution: Smooth Tissue Wound Edges: Epithelizing Site Odor: None Site Measurement - Head-to-Toe Length X Width X Depth (cm): 7.5 x 2 x 0.5 Skin Integrity Problem Comment: Cleansed ileostomy effluent from adjacent ileostomy that had leaked into healing, re-epithilializing surgical site. Placed a hydrocolloid to provide a low-profile, long-wearing dressing, to promote completion of re-surfacing. Report to LUCAS Arita. - Ileostomy Assessment, Advanced Left Lower Abdomen Ileostomy Ileostomy Appliance Intact: No (leaking medially towards midline abdominal wound ) Ileostomy Appliance Currently in Use: Two Piece Flat, 2 1/4, Moldable Stoma Color: [place] Stoma Turgor: Moist Stoma Shape: Oval Stoma Height: Protruding Slightly Mucocutaneus Junction: Intact Ileostomy Effluent: Thin, Bile Ileostomy Size - Head-to-Toe Length X Width X Depth (cm): 2.3 x 2 x 0.7 protruding height Peristomal Skin: Denuded (at 3 and 6 o'clock), Rash (extending 0.4 cm circumferentially) Ileostomy Comment/Treatment Details: After achieving a clean, dry peristomal surface, crusted peristomal skin with alternating applications of Cavilon skin protectant and stoma powder, then placed a new skin barrier wafer and pouch, with added ile-sorb packet to thicken effluent. Report to LUCAS Arita
[2016-12-07] MEDS: PATCH REMOVAL 1 EA PATCH TD SCH (20:46)
[2016-12-07] MEDS ORDERED: MELATONIN 3 MG TAB PO SCH (21:00)
[2016-12-08] MEDS: NS 1,000 ML IV SCH (05:52)
[2016-12-08 06:03] LABS: % IMMATURE GRANULYOCYTES 0.4 % (0.0-1.1); ABSOLUTE IMMATURE GRANULOCYTES 0.03 10^3/uL (0.00-0.10); ADD DIFF? NO; ADD MORPH? NO; ADD SCAN? NO; ATYPICAL LYMPHOCYTE FLAG 0 (0-99); FRAGMENT RBC FLAG 0 (0-99); HEMATOCRIT 25.7 % (38.0-47.0); HEMOGLOBIN 7.9 g/dL (12.6-16.3); LEFT SHIFT FLG 20 (0-99); LIPEMIA HEMOLYSIS FLAG 80 (0-99); MEAN CELL HEMOGLOBIN 28.8 pg (27.9-34.1); MEAN CELL HEMOGLOBIN CONCENTR. 30.7 g/dL (32.4-36.7); MEAN CELL VOLUME 93.8 fL (81.5-99.8); MEAN PLATELET VOLUME 9.7 fL (8.7-11.7); PLATELET CLUMPS FLAG 20 (0-99); PLATELET COUNT 323 10^3/uL (150-400); RED BLOOD CELL COUNT 2.74 10^6/uL (4.18-5.33); RED CELL DISTRIBUTION WIDTH 17.6 % (11.5-15.2)
[2016-12-08 06:29] LABS: ANION GAP 7 mEq/L (8-16); CALCIUM 8.8 mg/dL (8.5-10.4); CARBON DIOXIDE 23 mEq/l (22-31); CHLORIDE 111 mEq/L (97-110); CREATININE 0.4 mg/dL (0.6-1.0); GLOMERULAR FILTRATION RATE > 60; GLUCOSE 94 mg/dL (70-100); SODIUM 141 mEq/L (134-144)
--- NOTE | 2016-12-08 12:45 | PCMIDPN ---
Assessment/Plan: # intra-abdominal abscess/peritonitis following anastomotic leak, antibiotic day # 30, antifungal # 26. minimal residual changes on CT scan, small fluid collection adjacent to R dome of liver. CT scan personally reviewed by me --talk to IR to see if fluid collection can be easily aspirated --hold ertapenem for now with concern of ELECTROENCEPHALOGRAPHIC TECHNICIAN toxicity + good control of infection # anaerobic bacteremia secondary to intra-abdominal process: 11/16, 11/18, 12/06 blood cultures negative # delirium could consider toxicity of carbapenem, adrenal insufficiency, etiology of hypoxia # hypoxia - defer w/u to hospitalist. Medications Ertapenem 1 g IV daily Fluconazole 200 mg IV daily Subjective: Patient complaining of poor care at [facility] No abdominal pain Complaining of generalized weakness Objective: Vital Signs Temp Pulse Resp BP Pulse Ox 37.2 C 88 16 106/65 100 12/08/16 12:00 12/08/16 12:00 12/08/16 12:00 12/08/16 12:00 12/08/16 12:00 Laboratory Results 12/08/16 05:45 12/08/16 05:45 12/07/16 12/08/16 12/09/16 05:59 05:59 05:59 Intake Total 2558 1865 Output Total 300 1525 Balance 2258 340 - Physical Exam General Appearance: alert, no apparent distress, thin Respiratory: lungs clear, No accessory muscle use Cardiac/Chest: tachycardia Extremities: No pedal edema Abdomen: non-tender, soft, other (incision healing, no erythema) Skin: pallor, No rash Neuro/Psych: alert, confused - Time Spent With Patient Time Spent with Patient: greater than 35 minutes (called and updated partner) Time Spent with Patient: Greater than 35 minutes spent on this patients care, greater than 50% of time spent counseling, educating, and coordinating care regarding the above mentioned plan. ICD10 Worksheet Patient Problems: Problems Problem Status Onset Altered mental status Acute Severe sepsis Acute Abdominal pain Acute Abdominal pain, chronic, right lower quadrant Acute Acute Crohn's disease Acute Bronchitis Acute Crohns disease Acute Crohns disease of small intestine Acute Intra-abdominal abscess Acute Malnutrition Acute
[2016-12-08] MEDS: FLUoxetine 20 MG CAP PO SCH (12:51)
[2016-12-08] MEDS: PREGABALIN 100 MG CAP PO SCH ×2 (12:52→20:12)
[2016-12-08] MEDS: FLUCONAZOLE 100 MG TAB PO SCH (12:52)
[2016-12-08] MEDS: DICYCLOMINE 10 MG CAP PO SCH ×2 (12:52→20:12)
[2016-12-08] MEDS: predniSONE 5 MG TAB PO SCH ×2 (12:52→20:12)
[2016-12-08] MEDS: LIDOCAINE 5% 1 EA PATCH TD SCH (12:53)
[2016-12-08] MEDS: ERTAPENEM 1 GM in NS 100 ML IV SCH (12:54)
[2016-12-08] MEDS: ENOXAPARIN 40 MG/0.4 ML SYR SC SCH (12:54)
--- NOTE | 2016-12-08 14:07 | HOSPPROG ---
Hospitalist Progress Note Assessment/Plan: Patient is a 71 y/o female who recently had a SBO secondary to adhesions. She underwent lysis of adhesions and small bowel resection. 5 days later, she developed peritonitis, got an ileostomy and multiple abscesses drained. She came to the hospital for a f/u CT scan and was noted to be very confused. She was admitted for further care. Today is my first encounter w the patient, chart reviewed. D/W Dr Benitez. *Metabolic encephalopathy/confusion likely due to sepsis and recent illness she looks malnourished in addition has no focal deficits *Peritonitis/abscess secondary to anastomotic leak CT scan on this admit shows a 3 cm fluid collection will await input from ID cont Ertapenem and fluconazole antibiotic day # 30, antifungal # 26. minimal residual changes on CT scan, small fluid collection adjacent to R dome of liver. hold ertapenem for now with concern of SOURCING SPECIALIST toxicity + good control of infection *anemia hx of this *elevated LFT's on admission, now w improvement *Underweight with a BMI of 14.6 dietary to see recommending a calorie count *anastomotic leak from SBO requiring ileostomy application dba to see *Crohns disease on chronic prednisone *Hypoxia unclear etiol sat 100% will do room air challenge *DVT prophylaxis: LMWH Subjective: Getting out of bed. No specific issues. Confused. Objective: Vital Signs Temp Pulse Resp BP Pulse Ox 37.2 C 88 16 106/65 100 12/08/16 12:00 12/08/16 12:00 12/08/16 12:00 12/08/16 12:00 12/08/16 12:00 Laboratory Results 12/08/16 05:45 12/08/16 05:45 12/07/16 12/08/16 12/09/16 05:59 05:59 05:59 Intake Total 2558 1865 Output Total 300 1525 Balance 2258 340 PT 14.4 SEC (12.0-15.0) 12/07/16 04:40 INR 1.13 (0.83-1.16) 12/07/16 04:40 - Physical Exam Constitutional: not in pain, chronically ill appearing, cachectic Eyes: PERRL, anicteric sclera, EOMI Ears, Nose, Mouth, Throat: moist mucous membranes, hearing normal, ears appear normal Cardiovascular: No JVD, No tachycardia, No edema Respiratory: no respiratory distress, no rales or rhonchi, reduced air movement Gastrointestinal: tenderness, No ascites, No guarding Skin: warm, normal color, No erythema Musculoskeletal: normal joint ROM, no joint effusions Psychiatric: not anxious, poor insight, poor judgement, poor memory, No thought process linear ICD10 Worksheet Patient Problems: Problems Problem Status Onset Altered mental status Acute Severe sepsis Acute Abdominal pain Acute Abdominal pain, chronic, right lower quadrant Acute Acute Crohn's disease Acute Bronchitis Acute Crohns disease Acute Crohns disease of small intestine Acute Intra-abdominal abscess Acute Malnutrition Acute
--- NOTE | 2016-12-08 15:37 | SOAPPROG ---
SOAP Progress Note Assessment/Plan: Assessment: 71 year old s/p small bowel resection for ulcer/fistula with subsequent perforation at previous ileocolonic anastomosis. S/P wash out and ileostomy Admitted due to fall at [facility] Spoke with her common law for 20 minutes this am Reviewed CT scan with a 1x3 cm fluid collection by liver - can try aspiration. OVerall, CT improved Discussed with Dr. Benitez. WBC normal. I am comfortable discontinuing antibiotics Confusion Renetta thought I was her daughter and voiced concerned about her care that she was found slouched in the chair. Difficult to discern if this actually happened. I discussed with Charge Nurse to monitor Renetta was worried that her dressings on her abdomen were not being changed daily. I explained that the type of dressing she has does not need to be changed daily. Her significant other wants her to get stronger here, then bring her home with PT/OT and nursing. At this time, I do not think she is a candidate for in home care. He was concerned that a wound vac was removed prior to her admission. Renetta no longer need the wound vac S: Confused O: Incision with very small dressings on it. Ileostomy with green stool in bag Plan: 12/08/16 15:31 Objective: Vital Signs Temp Pulse Resp BP Pulse Ox 37.2 C 88 16 106/65 100 12/08/16 12:00 12/08/16 12:00 12/08/16 12:00 12/08/16 12:00 12/08/16 12:00 Laboratory Results 12/08/16 05:45 12/08/16 05:45 12/07/16 12/08/16 12/09/16 05:59 05:59 05:59 Intake Total 2558 1865 Output Total 300 1525 Balance 2258 340 PT 14.4 SEC (12.0-15.0) 12/07/16 04:40 INR 1.13 (0.83-1.16) 12/07/16 04:40 ICD10 Worksheet Patient Problems: Problems Problem Status Onset Altered mental status Acute Severe sepsis Acute Abdominal pain Acute Abdominal pain, chronic, right lower quadrant Acute Acute Crohn's disease Acute Bronchitis Acute Crohns disease Acute Crohns disease of small intestine Acute Intra-abdominal abscess Acute Malnutrition Acute
[2016-12-08] MEDS: LORazepam 0.5 MG TAB PO SCH ×2 (16:38→20:12)
[2016-12-08] MEDS: ONDANSETRON 4 MG/2 ML VIAL IVP PRN (20:11)
[2016-12-08] MEDS: PATCH REMOVAL 1 EA PATCH TD SCH (20:13)
[2016-12-08] MEDS: oxyCODONE IR 5 MG TAB PO PRN (20:45)
[2016-12-09] MEDS: FLUoxetine 20 MG CAP PO SCH (08:40)
[2016-12-09] MEDS: LORazepam 0.5 MG TAB PO SCH ×2 (08:41→22:21)
[2016-12-09] MEDS: predniSONE 5 MG TAB PO SCH ×2 (08:41→22:20)
[2016-12-09] MEDS: PREGABALIN 100 MG CAP PO SCH ×2 (08:41→22:21)
[2016-12-09] MEDS: DICYCLOMINE 10 MG CAP PO SCH ×2 (08:41→22:21)
[2016-12-09] MEDS: LIDOCAINE 5% 1 EA PATCH TD SCH (08:50)
--- NOTE | 2016-12-09 10:26 | SOAPPROG ---
SOAP Progress Note Assessment/Plan: Assessment: ALERT, COMMUNICATIVE/ ABD SOFT/ OSTOMY OK/ AFEBRILE NUTRITION IS ISSUE PEG MAYBE DIFFICULT WITH ALL THE RECENT SURGERY/ WOULD CONSIDER DOBHOFF Plan:OSTOMY CLOSURE IN6-8 WEEKS 12/09/16 10:24 Objective: Vital Signs Temp Pulse Resp BP Pulse Ox 37.1 C 90 14 117/77 96 12/09/16 07:52 12/09/16 07:52 12/09/16 07:52 12/09/16 07:52 12/09/16 07:52 Laboratory Results 12/08/16 05:45 12/08/16 05:45 12/08/16 12/09/16 12/10/16 05:59 05:59 05:59 Intake Total 1865 2034 Output Total 1525 1750 Balance 340 284 PT 14.4 SEC (12.0-15.0) 12/07/16 04:40 INR 1.13 (0.83-1.16) 12/07/16 04:40 ICD10 Worksheet Patient Problems: Problems Problem Status Onset Altered mental status Acute Severe sepsis Acute Abdominal pain Acute Abdominal pain, chronic, right lower quadrant Acute Acute Crohn's disease Acute Bronchitis Acute Crohns disease Acute Crohns disease of small intestine Acute Intra-abdominal abscess Acute Malnutrition Acute
[2016-12-09] MEDS ORDERED: MIDAZOLAM 2 MG/2 ML VIAL ONE (11:18)
[2016-12-09] MEDS ORDERED: HYDROmorphONE/DILAUDID 2 MG/ML INJ ONE (11:18)
[2016-12-09] MEDS ORDERED: FLUMAZENIL 0.5 MG/5 ML MDV IVP ONE (11:19)
[2016-12-09] MEDS ORDERED: NALOXONE HCL 0.4 MG/ML INJ ONE (11:19)
[2016-12-09] MEDS ORDERED: LIDOCAINE 1% 300 MG/30 ML SDV ONE (11:19)
--- NOTE | 2016-12-09 12:25 | HOSPPROG ---
Hospitalist Progress Note Assessment/Plan: Patient is a 71 y/o female who recently had a SBO secondary to adhesions. She underwent lysis of adhesions and small bowel resection. 5 days later, she developed peritonitis, got an ileostomy and multiple abscesses drained. She came to the hospital for a f/u CT scan and was noted to be very confused. She was admitted for further care. D/W Dr Benitez. *Metabolic encephalopathy/confusion likely due to sepsis and recent illness she looks malnourished in addition has no focal deficits *Peritonitis/abscess secondary to anastomotic leak minimal residual changes on CT scan, small fluid collection adjacent to R dome of liver. hold ertapenem for now with concern of IT SUPPORT MANAGER toxicity + good control of infection *anemia hx of this check in am *elevated LFT's on admission, now w improvement *Underweight with a BMI of 14.6 dietary rec feeding tube Called daughter, LAZARUS, agrees to dobhoff will place under fluro given complicated situation with a nasal bridle *anastomotic leak from SBO requiring ileostomy cert occupational therapy asst to see *Crohns disease on chronic prednisone *Hypoxia unclear etiol likely ATX *DVT prophylaxis: LMWH Subjective: In bed. No specific complaints. Confused. Objective: Vital Signs Temp Pulse Resp BP Pulse Ox 36.6 C 88 14 99/61 L 95 12/09/16 11:54 12/09/16 11:54 12/09/16 11:54 12/09/16 11:54 12/09/16 11:54 Laboratory Results 12/08/16 05:45 12/08/16 05:45 12/08/16 12/09/16 12/10/16 05:59 05:59 05:59 Intake Total 1865 2034 Output Total 1525 1750 Balance 340 284 PT 14.4 SEC (12.0-15.0) 12/07/16 04:40 INR 1.13 (0.83-1.16) 12/07/16 04:40 - Physical Exam Constitutional: not in pain, chronically ill appearing, cachectic Eyes: PERRL, anicteric sclera, EOMI Ears, Nose, Mouth, Throat: moist mucous membranes, hearing normal, ears appear normal Cardiovascular: No JVD, No tachycardia, No edema Respiratory: no respiratory distress, no rales or rhonchi, reduced air movement Gastrointestinal: tenderness, No ascites, No guarding Skin: warm, no rashes or abrasions, No mottled Musculoskeletal: normal joint ROM, no joint effusions, generalized weakness Neurologic: No AAOx3 Psychiatric: not anxious, poor insight, poor judgement, poor memory, No thought process linear ICD10 Worksheet Patient Problems: Problems Problem Status Onset Bronchitis Acute Malnutrition Acute Crohns disease Acute Intra-abdominal abscess Acute Abdominal pain, chronic, right lower quadrant Acute Crohns disease of small intestine Acute Abdominal pain Acute Acute Crohn's disease Acute Altered mental status Acute Severe sepsis Acute
--- NOTE | 2016-12-09 14:17 | PCMIDPN ---
Assessment/Plan: # intra-abdominal abscess/peritonitis following anastomotic leak s/p SB revision for recurrent SBOs, antibiotic day # 30, antifungal # 26. Today patient underwent aspiration with approximately 12 ml of purulent material returned. clinically patient remains stable -- follow cultures for christiano-liver abscess collected today -- Continue to monitor off antibiotics and adjust based on cultures # anaerobic bacteremia secondary to intra-abdominal process: 11/16, 11/18, 12/06 blood cultures negative # delirium : Difficult to re-assess patient's delirium postprocedure and sedation. Ertapenem stopped yesterday as possible contributing factor. Also plan dopoff for TF to improve nutritional status Case discussed with Dr. Yee. Subjective: patient is quite sedated postoperatively no clear complaints Objective: Vital Signs Temp Pulse Resp BP Pulse Ox 36 C 85 16 115/77 99 12/09/16 13:53 12/09/16 13:53 12/09/16 13:53 12/09/16 13:53 12/09/16 13:53 Microbiology 12/09/16 12:45 Gram Stain - Final Abdomen - Other Laboratory Results 12/08/16 05:45 12/08/16 05:45 12/08/16 12/09/16 12/10/16 05:59 05:59 05:59 Intake Total 1865 2034 Output Total 1525 1750 100 Balance 340 284 -100 - Physical Exam General Appearance: thin, non-toxic EENT: dry mucous membranes Respiratory: lungs clear, normal breath sounds, No accessory muscle use Neck: supple Cardiac/Chest: regular rate, rhythm Extremities: No pedal edema Abdomen: non-tender, soft, other ( ostomy site appears healthy) Pelvic Exam: No au - Line/s RUE PICC Lines: No drainage, No erythema ICD10 Worksheet Patient Problems: Problems Problem Status Onset Altered mental status Acute Severe sepsis Acute Abdominal pain Acute Abdominal pain, chronic, right lower quadrant Acute Acute Crohn's disease Acute Bronchitis Acute Crohns disease Acute Crohns disease of small intestine Acute Intra-abdominal abscess Acute Malnutrition Acute
[2016-12-09] MEDS: oxyCODONE IR 5 MG TAB PO PRN (22:21)
[2016-12-09] MEDS: PATCH REMOVAL 1 EA PATCH TD SCH (22:21)
[2016-12-10 04:13] LABS: HEMATOCRIT 29.5 % (38.0-47.0); MEAN CELL HEMOGLOBIN 28.8 pg (27.9-34.1); MEAN CELL HEMOGLOBIN CONCENTR. 30.5 g/dL (32.4-36.7); MEAN CELL VOLUME 94.2 fL (81.5-99.8); RED BLOOD CELL COUNT 3.13 10^6/uL (4.18-5.33); RED CELL DISTRIBUTION WIDTH 17.3 % (11.5-15.2)
[2016-12-10 04:28] LABS: ANION GAP 8 mEq/L (8-16); CALCIUM 9.4 mg/dL (8.5-10.4); CARBON DIOXIDE 27 mEq/l (22-31); CHLORIDE 104 mEq/L (97-110); CREATININE 0.5 mg/dL (0.6-1.0); GLOMERULAR FILTRATION RATE > 60; GLUCOSE 91 mg/dL (70-100); POTASSIUM 4.2 mEq/L (3.5-5.2); SODIUM 139 mEq/L (134-144)
[2016-12-10] MEDS: oxyCODONE IR 5 MG TAB PO PRN ×2 (05:35→20:12)
[2016-12-10] MEDS: LIDOCAINE 5% 1 EA PATCH TD SCH (07:54)
[2016-12-10] MEDS: predniSONE 5 MG TAB PO SCH ×2 (07:55→20:12)
[2016-12-10] MEDS: ENOXAPARIN 40 MG/0.4 ML SYR SC SCH (07:55)
[2016-12-10] MEDS: DICYCLOMINE 10 MG CAP PO SCH ×2 (07:55→20:12)
[2016-12-10] MEDS: PREGABALIN 100 MG CAP PO SCH ×2 (07:55→20:12)
[2016-12-10] MEDS: LORazepam 0.5 MG TAB PO SCH ×2 (07:55→20:12)
[2016-12-10] MEDS: FLUoxetine 20 MG CAP PO SCH (07:55)
[2016-12-10] MEDS ORDERED: BENZOCAINE UNIT DOSE SPRAY HURRICAINE MM ONE (09:27)
[2016-12-10] MEDS ORDERED: LIDOCAINE 2% JELLY 5 ML TUBE ONE (09:28)
--- NOTE | 2016-12-10 12:27 | HOSPPROG ---
Hospitalist Progress Note Assessment/Plan: Patient is a 71 y/o female who recently had a SBO secondary to adhesions. She underwent lysis of adhesions and small bowel resection. 5 days later, she developed peritonitis, got an ileostomy and multiple abscesses drained. She came to the hospital for a f/u CT scan and was noted to be very confused. She was admitted for further care. *Metabolic encephalopathy/confusion much better today, no confusion likely due to sepsis and recent illness she looks malnourished in addition has no focal deficits *Peritonitis/abscess secondary to anastomotic leak minimal residual changes on CT scan, small fluid collection adjacent to R dome of liver. hold ertapenem for now with concern of VP SECURITIES toxicity + good control of infection *anemia hx of this stable and improved *elevated LFT's on admission, now w improvement *Underweight with a BMI of 14.6 dietary rec feeding tube Called daughter, LAZARUS, agrees to dobhoff placed under fluro given complicated situation with a nasal bridle start tube feeding *anastomotic leak from SBO requiring ileostomy formulator to see *Crohns disease on chronic prednisone *Hypoxia unclear etiol likely ATX getting better OOB *DVT prophylaxis: LMWH *Dispo unclear, consider LTAC D/W CM and Dr Yee Subjective: Feeling stronger today. No pain currently. Eating. Objective: Vital Signs Temp Pulse Resp BP Pulse Ox 36.9 C 105 H 18 107/66 92 12/10/16 12:00 12/10/16 12:00 12/10/16 12:00 12/10/16 12:00 12/10/16 12:00 Microbiology 12/09/16 12:45 Gram Stain - Final Abdomen - Other Laboratory Results 12/10/16 03:50 12/10/16 03:50 12/09/16 12/10/16 12/11/16 05:59 05:59 05:59 Intake Total 2034 375 Output Total 1750 650 160 Balance 284 -275 -160 PT 14.4 SEC (12.0-15.0) 12/07/16 04:40 INR 1.13 (0.83-1.16) 12/07/16 04:40 - Physical Exam Constitutional: not in pain, chronically ill appearing, cachectic Eyes: PERRL, anicteric sclera, EOMI Ears, Nose, Mouth, Throat: moist mucous membranes, hearing normal, ears appear normal Cardiovascular: No JVD, No tachycardia, No edema Respiratory: no respiratory distress, no rales or rhonchi, reduced air movement Gastrointestinal: tenderness, No ascites, No guarding Skin: warm, normal color, No erythema Musculoskeletal: normal joint ROM, no joint effusions, generalized weakness Neurologic: AAOx3 Psychiatric: interacting appropriately, not anxious, not encephalopathic, poor memory ICD10 Worksheet Patient Problems: Problems Problem Status Onset Bronchitis Acute Malnutrition Acute Crohns disease Acute Intra-abdominal abscess Acute Abdominal pain, chronic, right lower quadrant Acute Crohns disease of small intestine Acute Abdominal pain Acute Acute Crohn's disease Acute Altered mental status Acute Severe sepsis Acute
--- NOTE | 2016-12-10 16:30 | PCMIDPN ---
Assessment/Plan: Assessment: Mental status changes-cleared clinically since the discontinuation of antibiotics. Peritonitis status post anastomotic leak. Sepsis secondary to this. Patient is complete with her antibiotic treatment and stable from this circumstance. Small intra-abdominal abscess status post drainage of 12 cc of purulent material yesterday. G stain and culture not revealing of pathogen so far. Plan: 1. No empiric antibiotics at present. 2. Follow culture results of abdominal collection aspirate. 3. Follow clinical course. Subjective: Patient is sitting up in a chair in her hospital room. She states that she is feeling much better. No new complaint. No fevers or chills. Objective: No antibiotics Vital Signs Temp Pulse Resp BP Pulse Ox 36.9 C 105 H 18 107/66 92 12/10/16 12:00 12/10/16 12:00 12/10/16 12:00 12/10/16 12:00 12/10/16 12:00 Microbiology 12/09/16 12:45 Gram Stain - Final Abdomen - Other Laboratory Results 12/10/16 03:50 12/10/16 03:50 12/09/16 12/10/16 12/11/16 05:59 05:59 05:59 Intake Total 2034 375 Output Total 1750 650 160 Balance 284 -275 -160 - Physical Exam General Appearance: WD/WN, alert, no apparent distress, other (Chronically ill- appearing) Respiratory: lungs clear, normal breath sounds, No respiratory distress Cardiac/Chest: regular rate, rhythm, No tachycardia Extremities: normal inspection Skin: normal color, warm/dry, No rash Neuro/Psych: alert, normal mood/affect, oriented x 3 ICD10 Worksheet Patient Problems: Problems Problem Status Onset Altered mental status Acute Severe sepsis Acute Abdominal pain Acute Abdominal pain, chronic, right lower quadrant Acute Acute Crohn's disease Acute Bronchitis Acute Crohns disease Acute Crohns disease of small intestine Acute Intra-abdominal abscess Acute Malnutrition Acute
--- NOTE | 2016-12-10 17:13 | SOAPPROG ---
<Sosa Ortiz - Last Filed: 12/10/16 17:08> SOAP Progress Note Assessment/Plan: Assessment: 71 year old s/p small bowel resection for ulcer/fistula with subsequent perforation at previous ileocolonic anastomosis. S/P wash out and ileostomy Admitted due to fall at [facility] D/c antibiotics - appetite improving Dobhoff placed Calorie count Continue PT/OT Seen c Dr. Yee. Continue inpatient S: Appetite slightly improved. Pain controlled. Less confused O: Laying in bed, comfortable, NAD No increased WOB No peripheral edema Incision CDI Ileostomy with green stool in bag Objective: Vital Signs Temp Pulse Resp BP Pulse Ox 36.6 C 96 18 89/63 L 92 12/10/16 16:00 12/10/16 16:00 12/10/16 16:00 12/10/16 16:00 12/10/16 16:00 Microbiology 12/09/16 12:45 Gram Stain - Final Abdomen - Other Laboratory Results 12/10/16 03:50 12/10/16 03:50 12/09/16 12/10/16 12/11/16 05:59 05:59 05:59 Intake Total 2034 375 Output Total 1750 650 160 Balance 284 -275 -160 PT 14.4 SEC (12.0-15.0) 12/07/16 04:40 INR 1.13 (0.83-1.16) 12/07/16 04:40 ICD10 Worksheet Patient Problems: Problems Problem Status Onset Altered mental status Acute Severe sepsis Acute Abdominal pain Acute Abdominal pain, chronic, right lower quadrant Acute Acute Crohn's disease Acute Bronchitis Acute Crohns disease Acute Crohns disease of small intestine Acute Intra-abdominal abscess Acute Malnutrition Acute <Kassy Yee - Last Filed: 12/11/16 07:32> SOAP Progress Note Assessment/Plan: Assessment: Ate well for breakfast. HOpefully feeding tube short term need. Can take down ostomy when stronger - I think the earliest would be 4-6 weeks from now Plan: 12/11/16 07:31 Objective: Vital Signs Temp Pulse Resp BP Pulse Ox 36.6 C 106 H 18 102/72 93 12/11/16 03:09 12/11/16 03:09 12/11/16 03:09 12/11/16 03:09 12/11/16 03:09 Microbiology 12/09/16 12:45 Gram Stain - Final Abdomen - Other Laboratory Results 12/10/16 03:50 12/10/16 03:50 12/10/16 12/11/16 12/12/16 05:59 05:59 05:59 Intake Total 375 310 Output Total 650 785 Balance -275 -475 PT 14.4 SEC (12.0-15.0) 12/07/16 04:40 INR 1.13 (0.83-1.16) 12/07/16 04:40
[2016-12-10] MEDS: PATCH REMOVAL 1 EA PATCH TD SCH (21:59)
[2016-12-11] MEDS: oxyCODONE IR 5 MG TAB PO PRN (01:59)
--- NOTE | 2016-12-11 08:36 | HOSPPROG ---
Hospitalist Progress Note Assessment/Plan: Patient is a 71 y/o female who recently had a SBO secondary to adhesions. She underwent lysis of adhesions and small bowel resection. 5 days later, she developed peritonitis, got an ileostomy and multiple abscesses drained. She came to the hospital for a f/u CT scan and was noted to be very confused. She was admitted for further care. *Metabolic encephalopathy/confusion much clearer today/ knows where she is, doesn't know year, knows who the president is *Peritonitis/abscess secondary to anastomotic leak s/p washout minimal residual changes on CT scan, small fluid collection adjacent to R dome of liver. hold ertapenem for now with concern of CHECKER AND PACKER toxicity + good control of infection *anemia hx of this stable and improved *elevated LFT's on admission, now w improvement *Underweight with a BMI of 14.6 dietary rec feeding tube Dobhoff placed in *anastomotic leak from SBO requiring ileostomy chicken cutter to see *Crohns disease on chronic prednisone *Hypoxia resolved *DVT prophylaxis: LMWH *Dispo pending/reviewed her care with Dr Yee who thinks the patient may not need Dobbhoff and hopefully will eat more soon. Hoping to dc Dobbhoff in the next day or so. Subjective: arpan is feeling much better today/ talkative/ wants to eat. Objective: Vital Signs Temp Pulse Resp BP Pulse Ox 36.6 C 101 H 14 105/70 94 12/11/16 07:44 12/11/16 07:44 12/11/16 07:44 12/11/16 07:44 12/11/16 07:44 Microbiology 12/09/16 12:45 Gram Stain - Final Abdomen - Other Laboratory Results 12/10/16 03:50 12/10/16 03:50 12/10/16 12/11/16 12/12/16 05:59 05:59 05:59 Intake Total 375 310 Output Total 650 785 150 Balance -275 -475 -150 PT 14.4 SEC (12.0-15.0) 12/07/16 04:40 INR 1.13 (0.83-1.16) 12/07/16 04:40 - Physical Exam Constitutional: not in pain, chronically ill appearing Eyes: PERRL Ears, Nose, Mouth, Throat: hearing normal Cardiovascular: regular rate and rhythym Respiratory: no respiratory distress Gastrointestinal: normoactive bowel sounds Skin: warm Musculoskeletal: generalized weakness Neurologic: AAOx3 Psychiatric: interacting appropriately, not anxious, not encephalopathic ICD10 Worksheet Patient Problems: Problems Problem Status Onset Altered mental status Acute Severe sepsis Acute Abdominal pain Acute Abdominal pain, chronic, right lower quadrant Acute Acute Crohn's disease Acute Bronchitis Acute Crohns disease Acute Crohns disease of small intestine Acute Intra-abdominal abscess Acute Malnutrition Acute
--- NOTE | 2016-12-11 09:47 | PCMIDPN ---
Assessment/Plan: 1. History of peritonitis, re-admitted with confusion/lethargy: Confusion has completely resolved. Suspect that it indeed was related to ertapenem. I agree with Dr. Benitez that she does not need any further antibiotics at this point in time. Culture of the small residual abscess has rare gram-positive cocci. Given clinical stability, would not advocate for additional antibiotics at this point in time, and rather, follow her clinically. 2. History of elevated liver function tests: Resolved.? Secondary to fluconazole versus other. 12/11/16 09:47 Subjective: " I am doing so much better." Patient says that overall she feels significantly improved. She understands that she cannot yet go home because of her overall weakness. Objective: No antibiotics Afebrile Vital Signs Temp Pulse Resp BP Pulse Ox 36.6 C 101 H 14 105/70 94 12/11/16 07:44 12/11/16 07:44 12/11/16 07:44 12/11/16 07:44 12/11/16 07:44 Microbiology 12/09/16 12:45 Gram Stain - Final Abdomen - Other Laboratory Results 12/10/16 03:50 12/10/16 03:50 12/10/16 12/11/16 12/12/16 05:59 05:59 05:59 Intake Total 375 310 Output Total 650 785 150 Balance -275 -475 -150 Small residual abscess culture: Rare GPC's G stain showed 2+ PMNs, no organisms - Physical Exam General Appearance: alert, no apparent distress, cachetic EENT: No thrush ICD10 Worksheet Patient Problems: Problems Problem Status Onset Altered mental status Acute Severe sepsis Acute Abdominal pain Acute Abdominal pain, chronic, right lower quadrant Acute Acute Crohn's disease Acute Bronchitis Acute Crohns disease Acute Crohns disease of small intestine Acute Intra-abdominal abscess Acute Malnutrition Acute
[2016-12-11] MEDS: FLUoxetine 20 MG CAP PO SCH (10:19)
[2016-12-11] MEDS: predniSONE 5 MG TAB PO SCH ×2 (10:20→20:02)
[2016-12-11] MEDS: DICYCLOMINE 10 MG CAP PO SCH ×2 (10:20→20:02)
[2016-12-11] MEDS: PREGABALIN 100 MG CAP PO SCH ×2 (10:20→20:02)
[2016-12-11] MEDS: ENOXAPARIN 40 MG/0.4 ML SYR SC SCH (10:20)
[2016-12-11] MEDS: LORazepam 0.5 MG TAB PO SCH ×2 (10:20→20:02)
[2016-12-11] MEDS: LIDOCAINE 5% 1 EA PATCH TD SCH (10:28)
--- NOTE | 2016-12-11 11:29 | SOAPPROG ---
SOAP Progress Note Assessment/Plan: Assessment: 71 yo s/p small bowel resection for ulceration/fistula/adhesions then takeback for perforated crohns Mental status improved dramatically since discontinuing ertapenum Eating better too Working on strength Abdominal culture with rare GPC - watching clinically Hopefully DHT short term Can take down ostomy when stronger - I think the earliest would be 4-6 weeks from now S: Feeling much improved. Hungry Incision cd dressings intact Ostomy with green fluid Plan: 12/11/16 07:31 12/11/16 11:27 Objective: Vital Signs Temp Pulse Resp BP Pulse Ox 36.6 C 101 H 14 105/70 94 12/11/16 07:44 12/11/16 07:44 12/11/16 07:44 12/11/16 07:44 12/11/16 07:44 Microbiology 12/09/16 12:45 Gram Stain - Final Abdomen - Other Laboratory Results 12/10/16 03:50 12/10/16 03:50 12/10/16 12/11/16 12/12/16 05:59 05:59 05:59 Intake Total 375 310 Output Total 650 785 150 Balance -275 -475 -150 PT 14.4 SEC (12.0-15.0) 12/07/16 04:40 INR 1.13 (0.83-1.16) 12/07/16 04:40 ICD10 Worksheet Patient Problems: Problems Problem Status Onset Altered mental status Acute Severe sepsis Acute Abdominal pain Acute Abdominal pain, chronic, right lower quadrant Acute Acute Crohn's disease Acute Bronchitis Acute Crohns disease Acute Crohns disease of small intestine Acute Intra-abdominal abscess Acute Malnutrition Acute
[2016-12-11] MEDS: PATCH REMOVAL 1 EA PATCH TD SCH (20:07)
--- NOTE | 2016-12-12 08:02 | HOSPPROG ---
Hospitalist Progress Note Assessment/Plan: Patient is a 71 y/o female who recently had a SBO secondary to adhesions. She underwent lysis of adhesions and small bowel resection. 5 days later, she developed peritonitis, got an ileostomy and multiple abscesses drained. She came to the hospital for a f/u CT scan and was noted to be very confused. She was admitted for further care. *Metabolic encephalopathy/confusion much clearer this morning this varies during the day *Peritonitis/abscess secondary to anastomotic leak s/p washout minimal residual changes on CT scan, small fluid collection adjacent to R dome of liver. hold ertapenem for now with concern of HOME CHILD CARE PROVIDER toxicity + good control of infection *anemia hx of this stable and improved *elevated LFT's on admission, now w improvement *Underweight with a BMI of 14.6 dietary rec feeding tube dobhoff pulled out last evening by patient/ will hold off replacing and see if she can tolerate more oral intake *anastomotic leak from SBO requiring ileostomy cco & president to see *Crohns disease on chronic prednisone *Hypoxia resolved *DVT prophylaxis: LMWH *Dispo: pending/ doubtful she needs an LTAC but could go to SNF Subjective: Farnaz is feeling better, wants to go home but is willing to go to SNF to get stronger. Has no c/o pain. Objective: Vital Signs Temp Pulse Resp BP Pulse Ox 36.9 C 125 H 16 108/82 H 92 12/12/16 07:41 12/12/16 07:41 12/12/16 04:00 12/12/16 07:41 12/12/16 07:41 Microbiology 12/09/16 12:45 Gram Stain - Final Abdomen - Other Laboratory Results 12/10/16 03:50 12/10/16 03:50 12/11/16 12/12/16 12/13/16 05:59 05:59 05:59 Intake Total 310 Output Total 785 1375 Balance -475 -1375 PT 14.4 SEC (12.0-15.0) 12/07/16 04:40 INR 1.13 (0.83-1.16) 12/07/16 04:40 - Physical Exam Constitutional: not in pain, cachectic, No appears nourished Eyes: PERRL Ears, Nose, Mouth, Throat: hearing normal Cardiovascular: regular rate and rhythym Respiratory: no respiratory distress Gastrointestinal: normoactive bowel sounds Skin: warm Musculoskeletal: generalized weakness Neurologic: AAOx3 Psychiatric: interacting appropriately, poor insight, poor judgement, poor memory ICD10 Worksheet Patient Problems: Problems Problem Status Onset Altered mental status Acute Severe sepsis Acute Abdominal pain Acute Abdominal pain, chronic, right lower quadrant Acute Acute Crohn's disease Acute Bronchitis Acute Crohns disease Acute Crohns disease of small intestine Acute Intra-abdominal abscess Acute Malnutrition Acute
[2016-12-12] MEDS: PREGABALIN 100 MG CAP PO SCH ×2 (08:09→20:18)
[2016-12-12] MEDS: DICYCLOMINE 10 MG CAP PO SCH ×2 (08:09→20:18)
[2016-12-12] MEDS: LORazepam 0.5 MG TAB PO SCH ×2 (08:10→20:18)
[2016-12-12] MEDS: LIDOCAINE 5% 1 EA PATCH TD SCH (08:10)
[2016-12-12] MEDS: predniSONE 5 MG TAB PO SCH ×2 (08:10→20:18)
[2016-12-12] MEDS: ENOXAPARIN 40 MG/0.4 ML SYR SC SCH (08:10)
[2016-12-12] MEDS: FLUoxetine 20 MG CAP PO SCH (08:10)
[2016-12-12] MEDS ORDERED: NS 1,000 ML IV SCH (13:45)
--- NOTE | 2016-12-12 14:08 | CPEKG ---
Heart Rate: 120 RR Interval: 500 P-R Interval: 120 QRSD Interval: 92 QT Interval: 308 QTC Interval: 436 P [place]: 42 QRS [place]: 62 T Wave [place]: 73 EKG Severity - OTHERWISE NORMAL ECG - EKG Impression: SINUS TACHYCARDIA Electronically Signed By: Noah Bradley 13-Dec-2016 09:06:36
[2016-12-12] MEDS: oxyCODONE IR 5 MG TAB PO PRN (16:21)
--- NOTE | 2016-12-12 16:51 | WOCRNPDOC ---
WOCRN Advanced Assessment Note - Skin Integrity Problem, Advanced Assess Left Upper Abdomen Surgical Wound/Incision Dressing Type: Allevyn Life Dressing Description: Clean/Dry, Intact Integumentary Issue Intervention: Dressing Initialed & Dated (by staff forester), Visualized Under Dressing Kenzie Wound Tissue: Intact Wound Bed Color: Loa Wound Bed Constitution: Granulation Tissue, Smooth Tissue Wound Edges: Epithelizing Site Odor: None Skin Integrity Problem Comment: Hydrocolloids have been replaced as of yesterday with Allevyn dressings. May continue as protection per current orders until healed.
[2016-12-12] MEDS: ONDANSETRON 4 MG/2 ML VIAL IVP PRN (17:28)
[2016-12-12] MEDS: PATCH REMOVAL 1 EA PATCH TD SCH (20:21)
--- NOTE | 2016-12-13 08:36 | HOSPPROG ---
Hospitalist Progress Note Assessment/Plan: Patient is a 71 y/o female who recently had a SBO secondary to adhesions. She underwent lysis of adhesions and small bowel resection. 5 days later, she developed peritonitis, got an ileostomy and multiple abscesses drained. She came to the hospital for a f/u CT scan and was noted to be very confused. She was admitted for further care. *Metabolic encephalopathy/confusion she is clear today *Peritonitis/abscess secondary to anastomotic leak s/p washout minimal residual changes on CT scan, small fluid collection adjacent to R dome of liver. ertapenem stopped for now with concern of CARRY ALL DRIVER toxicity + good control of infection *tachycardia has been intermittent and ongoing improved with hydration/ suspect she is not eating or drinking enough *anemia hx of this stable and improved *elevated LFT's on admission, now w improvement *Underweight with a BMI of 14.6 dietary rec feeding tube dobhoff pulled out by patient/ will hold off replacing and see if she can tolerate more oral intake *anastomotic leak from SBO requiring ileostomy livestock commission agent to see *Crohns disease on chronic prednisone *Hypoxia resolved *DVT prophylaxis: LMWH *Dispo: to SNF/ will need f/u with either Dr Doan or Dr Yee for ostomy takedown in 4-6 weeks when stronger Subjective: Farnaz is feeling well/ no complaints. Objective: Vital Signs Temp Pulse Resp BP Pulse Ox 36.9 C 106 H 18 123/84 H 92 12/13/16 08:22 12/13/16 08:22 12/13/16 08:22 12/13/16 08:22 12/13/16 08:22 Microbiology 12/09/16 12:45 Gram Stain - Final Abdomen - Other Laboratory Results 12/10/16 03:50 12/10/16 03:50 12/12/16 12/13/16 12/14/16 05:59 05:59 05:59 Intake Total 700 Output Total 1375 775 Balance -1375 -75 PT 14.4 SEC (12.0-15.0) 12/07/16 04:40 INR 1.13 (0.83-1.16) 12/07/16 04:40 - Physical Exam Constitutional: chronically ill appearing, cachectic Eyes: PERRL Ears, Nose, Mouth, Throat: hearing normal Cardiovascular: regular rate and rhythym Respiratory: no respiratory distress Gastrointestinal: normoactive bowel sounds, other (osotomy with loose stool) Skin: warm Musculoskeletal: generalized weakness Neurologic: AAOx3 Psychiatric: interacting appropriately, poor insight, poor judgement, poor memory ICD10 Worksheet Patient Problems: Problems Problem Status Onset Altered mental status Acute Severe sepsis Acute Abdominal pain Acute Abdominal pain, chronic, right lower quadrant Acute Acute Crohn's disease Acute Bronchitis Acute Crohns disease Acute Crohns disease of small intestine Acute Intra-abdominal abscess Acute Malnutrition Acute
[2016-12-13] MEDS: PREGABALIN 100 MG CAP PO SCH (08:54)
[2016-12-13] MEDS: LIDOCAINE 5% 1 EA PATCH TD SCH (08:54)
[2016-12-13] MEDS: FLUoxetine 20 MG CAP PO SCH (08:54)
[2016-12-13] MEDS: LORazepam 0.5 MG TAB PO SCH (08:55)
[2016-12-13] MEDS: predniSONE 5 MG TAB PO SCH (08:55)
[2016-12-13] MEDS: DICYCLOMINE 10 MG CAP PO SCH (08:55)
[2016-12-13] MEDS: ENOXAPARIN 40 MG/0.4 ML SYR SC SCH (08:56)
--- NOTE | 2016-12-13 09:14 | SOAPPROG ---
SOAP Progress Note Assessment/Plan: Assessment: 71 yo s/p small bowel resection for ulceration/fistula/adhesions then takeback for perforated crohns Mental status significantly improved Appetite improving and taking in more calories PT/OT to work on strength Abdominal culture with rare GPC - watching clinically Plan ostomy takedown when stronger (4-6 weeks at earliest per Dr. Yee) S: Feeling well this morning. Sat up in chair to eat breakfast. Back sore from bed O: laying in bed, comfortable, NAD No increased WOB No peripheral edema +BS, abd soft, nondistended, nontender Ostomy good profile, appliance recently emptied so no stool Objective: Vital Signs Temp Pulse Resp BP Pulse Ox 36.9 C 106 H 18 123/84 H 92 12/13/16 08:22 12/13/16 08:22 12/13/16 08:22 12/13/16 08:22 12/13/16 08:22 Microbiology 12/09/16 12:45 Gram Stain - Final Abdomen - Other Laboratory Results 12/10/16 03:50 12/10/16 03:50 12/12/16 12/13/16 12/14/16 05:59 05:59 05:59 Intake Total 700 Output Total 1375 775 Balance -1375 -75 PT 14.4 SEC (12.0-15.0) 12/07/16 04:40 INR 1.13 (0.83-1.16) 12/07/16 04:40 ICD10 Worksheet Patient Problems: Problems Problem Status Onset Altered mental status Acute Severe sepsis Acute Abdominal pain Acute Abdominal pain, chronic, right lower quadrant Acute Acute Crohn's disease Acute Bronchitis Acute Crohns disease Acute Crohns disease of small intestine Acute Intra-abdominal abscess Acute Malnutrition Acute
--- NOTE | 2016-12-13 10:52 | PDIAF ---
- Diagnosis Diagnosis: hx of peritonitis, metabolic encephalopathy, malnutrition Code Status: Do Not Resuscitate - Medication Management Discharge Medications: Medications to Continue on Transfer Acetaminophen [Tylenol 325mg (*)] 650 mg PO Q4H PRN 12/06/16 [Last Taken Unknown ] Cholecalciferol Vit D3 [Vitamin D3 (*)] 1,000 units PO DAILY 12/06/16 [Last Taken Unknown] Dicyclomine [Bentyl 10 MG (*)] 10 mg PO BID 12/06/16 [Last Taken Unknown] Enoxaparin [Lovenox 40 MG (*)] 40 mg SQ DAILY 12/06/16 [Last Taken Unknown] FLUoxetine [Prozac 20 MG (*)] 60 mg PO DAILY 12/06/16 [Last Taken Unknown] LORazepam [Ativan (*)] 0.5 mg PO BID 12/06/16 [Last Taken Unknown] Lidocaine 5% [Lidoderm 5% Patch (*)] 1 ea TD DAILY 12/06/16 [Last Taken Unknown] Melatonin [Melatonin 3 MG (*)] 1.5 mg PO HS 12/06/16 [Last Taken Unknown] Multivitamins [Multivitamin (*)] 1 each PO DAILY 12/06/16 [Last Taken Unknown] Ondansetron Odt [Zofran Odt 4 mg (*)] 4 mg PO Q4 PRN 12/06/16 [Last Taken Unknown] Pregabalin [LYRICA] 100 mg PO BID 12/06/16 [Last Taken Unknown] predniSONE 5 mg PO BID 12/06/16 [Last Taken Unknown] Ondansetron HCl Pf [Zofran 4 mg Inj (*)] 4 mg IVP Q4 PRN #0 vial 12/13/16 [ Last Taken Unknown] Patch Removal 1 ea TD DAILY21 patch 12/13/16 [Last Taken Unknown] oxyCODONE IR [Oxycodone Ir (*)] 10 mg PO Q4H PRN #20 tab 12/13/16 [Last Taken Unknown] Discharge Medications: Refer to the Discharge Home Medication list for PRN reason. - Orders Services needed: Registered Nurse, Physical Therapy, Occupational Therapy Diet Recommendation: no restrictions on diet Diet Texture: Regular Texture Diet Weigh Patient: daily Additional: Patient needs f/u with Dr Yee or Dr Doan for ostomy take down in 4-6 weeks at the soonest. It is critical she is monitored for adequate intake and fluids. Needs multiple meals a day that are small. She gets tachycardic when she is dehydrated and needs encouragement to eat. - Labs/Radiology BMP Date: 12/14/16 CBC Date: 12/14/16 - Follow Up Care Current Providers and Referrals: Cherelle Welsh MD [Primary Care Provider] - As per Instructions Kassy Yee MD [Medical Doctor] -
--- NOTE | 2016-12-13 12:18 | GDS ---
[f rep st] DISCHARGE SUMMARY DISCHARGE DIAGNOSES: 1. Metabolic encephalopathy. 2. Peritonitis/abscess. 3. Tachycardia. 4. Anemia. 5. Elevated liver function tests. 6. Malnutrition/underweight with a body max index of 14.6. 7. Anastomotic leak from SBO requiring an ileostomy in the past. 8. Crohn's disease, on chronic prednisone. 9. Hypoxemia. CONSULTATIONS DURING STAY: 1. Dr. Tami Benitez. 2. Dr. Kassy eYe. HISTORY OF PRESENT ILLNESS: The patient is a 71-year-old female who recently had a small bowel obstruction due to adhesions. She underwent lysis of adhesions and a small-bowel resection. Five days after the surgery, she had a perforated anastomosis with peritonitis. She subsequently got an ileostomy, and had multiple abscesses drained. She had an open wound with a wound VAC and was intubated in ICU. She improved and was discharged to [facility]. She had been doing poorly at [facility], and not eating, not walking, and was losing weight. She would only whisper. On admission, she had a CT of her head that was negative. In addition, she had a CT scan of the abdomen and pelvis, which showed a 3 cm fluid collection at the right side of the liver. She was seen and evaluated by the infectious disease team, who placed on Invanz and fluconazole. She was then seen and evaluated by the surgical team. She was evaluated because she was not eating enough. Surgery recommended a Dobbhoff, which was placed. The patient pulled this out. Over her stay, she mentally improved, and she has been eating for the last several days. The plan is for an ostomy takedown once she gets stronger in approximately 4-6 weeks. Today, she is alert and oriented to person, place, time, and situation. She knows the plan is for her to go to [facility] for strengthening. HOSPITAL COURSE: 1. Metabolic encephalopathy. There was concern that this was secondary to ertapenem, which can cause CLOTH NAPPING SUPERVISOR toxicity. She improved with the discontinuation of antibiotics. 2. Peritonitis abscess. She is status post a washout, stable. 3. Tachycardia. This has been intermittent ongoing. It resolved after she got saline yesterday. I am recommending at the half-way facility they monitor her very closely, make sure she is eating and drinking. A CTA was performed on November 27 which was negative for a pulmonary emboli. 4. Anemia, history of this. Will have this monitored. 5. Elevated LFTs, improved. 6. Malnutrition with a BMI of 14.6. She had a Dobbhoff she accidentally pulled out. This was not replaced, but she is starting to eat better. 7. Anastomotic leak from small-bowel obstruction requiring ileostomy. Wound care evaluated her. 8. Crohn's disease. Chronic prednisone. 9. Hypoxemia, resolved. CONDITION AT DISCHARGE: Stable. Blood pressure is 106/59, heart rate 78, respiratory rate is 14, O2 sats on room air are 96%, temperature is 36.9 Celsius. MEDICATIONS AT DISCHARGE: Please see the EMR. DISCHARGE INSTRUCTIONS: 1. I asked for the half-way facility to do close monitoring of her intake. 2. Further follow up with Dr. Yee or Dr. Doan for an ostomy takedown in 4-6 weeks. 3. Greater than 30 minutes discharging and coordinating care. /[id number]/MODL MTDD
[2016-12-13 13:15] VITALS: BP 113/80; RESP 20; TEMP 98.1; O2SAT 95
[2016-12-13] MEDS ORDERED: NS 250 ML IV ONE (13:18)
[2016-12-13 16:43] VITALS: PULSE 92
== END 2016-12-13 16:02 | disposition home or self-care (01) | DRG 871 ==
LOC: OBSVTOIN 21:43 → F3E 22:10
PROVIDERS: ADMIT Internal Medicine; ATTEND Internal Medicine
PROC: 0FB13ZX Excision of Right Lobe Liver, Percutaneous Approach, Diagnostic (ICD-10-PCS; principal; 2016-12-09 12:55)
DX: A41.4 Sepsis due to anaerobes (principal); R65.20 Severe sepsis without septic shock; K65.1 Peritoneal abscess; T36.95XA Adverse effect of unspecified systemic antibiotic, initial encounter; G92 Toxic encephalopathy; E46 Unspecified protein-calorie malnutrition; Z93.2 Ileostomy status; R09.02 Hypoxemia; Z68.1 Body mass index [BMI] 19.9 or less, adult; Z79.52 Long term (current) use of systemic steroids; K50.90 Crohn's disease, unspecified, without complications; Z98.1 Arthrodesis status
CPT/HCPCS: 87186-90; 92507-GN; 92523-GN; 96365; 97116-GP; 97162-GP; 97166-GO; 97530-GO; 97530-GP; 97535-GO; G8978-GP-CL; G8979-GP-CJ; G8987-GO-CM; G8988-GO-CK; G9165-GN-CJ; G9166-GN-CJ; J1170; J1335; J1650; J2250; J2310; J2405; Q9967

== ENCOUNTER 2016-12-14 18:52 | Inpatient (IN) | payer OTHER ==
--- NOTE | 2016-12-14 19:22 | EDPHY ---
HPI/HX/ROS/PE/MDM Narrative: CHIEF COMPLAINT: Abdominal pain, Vomiting. HISTORY OF PRESENT ILLNESS: The patient is a 71-year-old female with a history of possible Crohn's disease who had a small bowel resection secondary to ulcerations. She developed a small-bowel obstruction and was diagnosed with recurrent ulcerations. Patient had a complicated postoperative course and developed peritonitis with a resultant colostomy. Patient was initially discharged to [facility]. However, patient developed septicemia, was readmitted to the hospital and has recently been discharged [facility]. For the past three days at rehab the patient has not been able to keep down liquids or solids. She has multiple episodes of emesis per day and states vomiting has progressively worsened. Today she went to have her ostomy bag changed and after developed abdominal pain at the site. She believes the ostomy was not changed properly and continues to experience intermittent, sharp, stabbing pain in the abdomen. She denies fever, chills, chest pain, shortness of breath, palpitations, urinary complaints, headache, lightheadedness. Patient additionally notes increased weakness, she had a fall today and hit her head. No LOC. Patient is not on anticoagulants. REVIEW OF SYSTEMS: Aside from elements discussed in the HPI, a comprehensive 10-point review of systems was reviewed and is negative. PAST MEDICAL HISTORY: Crohn disease, SBO, Chronic back pain with scoliosis, Depression, Anxiety, Anemia, Peritonitis. PAST SURGICAL HISTORY: Cervical fusion, Breast augmentation, bilateral tubal ligation, bowel resection as well as lysis of adhesions. Colostomy. SOCIAL HISTORY: No smoking or alcohol. VITAL SIGNS: Reviewed by me GENERAL: Very thin, cachectic individual. Reports pain. Complains of feeling very weak. HEENT: Atraumatic. Eyes: No icterus, no injection. Mouth: slightly dry mucous membranes. No erythema or lesions. Neck: supple with no adenopathy. LUNGS: Crackles at left base. CARDIAC: Regular rate and rhythm, no rubs, murmurs or gallops. ABDOMEN: Colostomy bag in LLQ, Midline incision with dressing over it. Healing upper abdominal surgical incision. Tenderness and fullness in the suprapubic region. No guarding. No distension. BACK: No CVA tenderness. EXTREMITIES: No trauma. No edema. Range of motion is normal throughout. NEURO: Alert and oriented, grossly nonfocal. SKIN: Warm and dry, no rash. PSYCHIATRIC: Normal mentation, no agitation. Portions of this note were transcribed by a medical technologist chemistry. I personally performed a history, physical exam, medical decision making, and confirmed accuracy of information the transcribed note. ED Course: Patient with complicated abdominal history including Crohn's disease, SBO, Peritonitis, presents with persistent nausea vomiting for the last 3 days as well as pain around her colostomy site after having the bag changed today. She states she has not been able to keep anything down. Patient was placed on IV fluids. Plan to check CBC and CHEM. Patient received fluids, 0.5mg Dilaudid for pain, and 6.25mg Phenergan for nausea. I ordered CT abdomen/pelvis. Patient's pain has improved with medication. Patient's CT scan demonstrates mildly dilated small bowel. No definitive abscess. Note there is a fecal ball measuring 8 cm in the patient's rectum. Plan to admit the patient to the hospitalist service. The patient will be admitted to Dr. De La Rosa. On re-examination the patient is sleeping. She reports improved pain. No further vomiting while in the emergency department. MDM: After obtaining the patient's history and performing an examination, differential diagnosis considered included but was not limited to bowel obstruction, abscess, perforation, dehydration, viral syndrome, electrolyte abnormalities, urinary tract infections and other causes. - Data Points Imaging Results: Imaging Impressions Abdomen CT 12/14/16 19:57 Impression: 1. Mildly dilated small bowel in the upper abdomen. The amount of upper abdominal fluid has diminished further. 2. No findings to suggest abscess. 3. See above report for additional findings. Results called and discussed with Treasure Ritchie MD, on 12/14/2016 at 2148 hours. Imaging: Discussed imaging studies w/ automotive design layout drafter Radiologist Laboratory Results: Laboratory Results 12/14/16 18:40 12/14/16 18:40 12/14/16 12/14/16 18:40 18:40 WBC 8.60 10^3/uL 10^3/uL (3.80-9.50) RBC 3.63 10^6/uL L 10^6/uL (4.18-5.33) Hgb 10.4 g/dL L g/dL (12.6-16.3) Hct 32.4 % L % (38.0-47.0) MCV 89.3 fL fL (81.5-99.8) MCH 28.7 pg pg (27.9-34.1) MCHC 32.1 g/dL L g/dL (32.4-36.7) RDW 16.9 % H % (11.5-15.2) Plt Count 417 10^3/uL H 10^3/uL (150-400) MPV 10.2 fL fL (8.7-11.7) Neut % (Auto) 67.5 % % (39.3-74.2) Lymph % (Auto) 22.4 % % (15.0-45.0) [place] % (Auto) 9.0 % % (4.5-13.0) Eos % (Auto) 0.5 % L % (0.6-7.6) Baso % (Auto) 0.3 % % (0.3-1.7) Nucleat RBC Rel Count 0.0 % % (0.0-0.2) Absolute Neuts (auto) 5.80 10^3/uL 10^3/uL (1.70-6.50) Absolute Lymphs (auto) 1.93 10^3/uL 10^3/uL (1.00-3.00) Absolute Monos (auto) 0.77 10^3/uL 10^3/uL (0.30-0.80) Absolute Eos (auto) 0.04 10^3/uL 10^3/uL (0.03-0.40) Absolute Basos (auto) 0.03 10^3/uL 10^3/uL (0.02-0.10) Absolute Nucleated RBC 0.00 10^3/uL 10^3/uL (0-0.01) Immature Gran % 0.3 % % (0.0-1.1) Immature Gran # 0.03 10^3/uL 10^3/uL (0.00-0.10) Sodium 134 mEq/L mEq/L (134-144) Potassium 3.6 mEq/L mEq/L (3.5-5.2) Chloride 102 mEq/L mEq/L (97-110) Carbon Dioxide 22 mEq/l mEq/l (22-31) Anion Gap 10 mEq/L mEq/L (8-16) BUN 23 mg/dL mg/dL (7-23) Creatinine 0.6 mg/dL mg/dL (0.6-1.0) Estimated GFR > 60 Glucose 87 mg/dL mg/dL (70-100) Calcium 9.4 mg/dL mg/dL (8.5-10.4) Total Bilirubin 0.9 mg/dL mg/dL (0.1-1.4) Conjugated Bilirubin 0.6 mg/dL H mg/dL (0.0-0.5) Unconjugated Bilirubin 0.3 mg/dL mg/dL (0.0-1.1) AST 45 IU/L IU/L (14-46) ALT 75 IU/L H IU/L (9-52) Alkaline Phosphatase 104 IU/L IU/L (38-126) Total Protein 6.1 g/dL L g/dL (6.3-8.2) Albumin 3.4 g/dL L g/dL (3.5-5.0) Lipase 191.0 IU/L IU/L (23-300) Medications Given: Discontinued Medications Hydromorphone HCl (Dilaudid) 0.5 mg IVP EDNOW ONE Stop: 12/14/16 19:59 Last Admin: 12/14/16 20:14 Dose: 0.5 mg Sodium Chloride (Ns) 1,000 mls @ 0 mls/hr IV ONCE ONE PRN Reason: Wide Open Stop: 12/14/16 20:01 Last Admin: 12/14/16 20:22 Dose: 1,000 mls Promethazine HCl (Phenergan) 6.25 mg IVP ONCE ONE Stop: 12/14/16 20:35 Last Admin: 12/14/16 20:49 Dose: 6.25 mg General Time Seen by Provider: 12/14/16 18:54 Initial Vital Signs: Initial Vital Signs Temperature (C) 37.2 C 12/14/16 19:19 Heart Rate 102 H 12/14/16 19:19 Respiratory Rate 14 12/14/16 19:19 Blood Pressure 130/72 H 12/14/16 19:19 O2 Sat (%) 96 12/14/16 19:19 O2 Delivery Mode Room Air Allergies/Adverse Reactions: fentanyl [Fentanyl] Allergy (Severe, Verified 12/14/16 19:19) WEIGHT LOSS, MEMORY LOSS gabapentin [From Neurontin] Allergy (Severe, Verified 12/14/16 19:19) Rash Penicillins Allergy (Severe, Verified 12/14/16 19:19) SEIZURES Sulfa (Sulfonamide Antibiotics) Allergy (Severe, Verified 12/14/16 19:19) NAUSEA morphine Allergy (Unknown, Verified 12/14/16 19:19) PT BECOMES "MEAN" tramadol [Tramadol] Allergy (Unknown, Verified 12/14/16 19:19) azathioprine [From Imuran] Allergy (Verified 12/14/16 19:19) Rash azathioprine sodium [From Imuran] Allergy (Verified 12/14/16 19:19) Rash budesonide [From Entocort EC] Allergy (Verified 12/14/16 19:19) Rash infliximab [From Remicade] Allergy (Verified 12/14/16 19:19) Itching mesalamine [From Pentasa] Allergy (Verified 12/14/16 19:19) Rash Home Medications: Medication Instructions Recorded Acetaminophen [Tylenol 325mg (*)] 650 mg PO Q4H PRN 12/06/16 Cholecalciferol Vit D3 [Vitamin D3 1,000 units PO DAILY 12/06/16 (*)] Dicyclomine [Bentyl 10 MG (*)] 10 mg PO BID 12/06/16 Enoxaparin [Lovenox 40 MG (*)] 40 mg SQ DAILY 12/06/16 FLUoxetine [Prozac 20 MG (*)] 60 mg PO DAILY 12/06/16 LORazepam [Ativan (*)] 0.5 mg PO BID 12/06/16 Lidocaine 5% [Lidoderm 5% Patch 1 ea TD DAILY 12/06/16 (*)] Melatonin [Melatonin 3 MG (*)] 1.5 mg PO HS 12/06/16 Multivitamins [Multivitamin (*)] 1 each PO DAILY 12/06/16 Ondansetron Odt [Zofran Odt 4 mg 4 mg PO Q4 PRN 12/06/16 (*)] Pregabalin [LYRICA] 100 mg PO BID 12/06/16 predniSONE 5 mg PO BID 12/06/16 oxyCODONE IR [Oxycodone Ir (*)] 10 mg PO Q4H PRN #20 tab 12/13/16 Departure - Departure Disposition: [facility] Clinical Impression: Malnutrition Abdominal pain Qualifiers: Abdominal location: generalized Qualified Code(s): R10.84 - Generalized abdominal pain Vomiting Qualifiers: Vomiting type: unspecified Vomiting Intractability: non-intractable Nausea presence: with nausea Qualified Code(s): R11.2 - Nausea with vomiting, unspecified Condition: Fair Report Scribed for: Treasure Ritchie Report Scribed by: Anuja Chatman Date of Report: 12/14/16 Time of Report: 19:49
[2016-12-14] MEDS ORDERED: HYDROmorphONE/DILAUDID 1 MG/ML SYR IVP ONE (19:58)
[2016-12-14] MEDS ORDERED: NS 1,000 ML IV ONE (20:00)
[2016-12-14 20:07] LABS: % IMMATURE GRANULYOCYTES 0.3 % (0.0-1.1); ABSOLUTE IMMATURE GRANULOCYTES 0.03 10^3/uL (0.00-0.10); ADD DIFF? NO; ADD MORPH? NO; ADD SCAN? NO; ATYPICAL LYMPHOCYTE FLAG 10 (0-99); FRAGMENT RBC FLAG 0 (0-99); HEMATOCRIT 32.4 % (38.0-47.0); HEMOGLOBIN 10.4 g/dL (12.6-16.3); LEFT SHIFT FLG 10 (0-99); LIPEMIA HEMOLYSIS FLAG 80 (0-99); MEAN CELL HEMOGLOBIN 28.7 pg (27.9-34.1); MEAN CELL HEMOGLOBIN CONCENTR. 32.1 g/dL (32.4-36.7); MEAN CELL VOLUME 89.3 fL (81.5-99.8); MEAN PLATELET VOLUME 10.2 fL (8.7-11.7); PLATELET CLUMPS FLAG 0 (0-99); PLATELET COUNT 417 10^3/uL (150-400); RED BLOOD CELL COUNT 3.63 10^6/uL (4.18-5.33); RED CELL DISTRIBUTION WIDTH 16.9 % (11.5-15.2)
[2016-12-14 20:20] LABS: ALANINE AMINOTRANSFERASE 75 IU/L (9-52); ALBUMIN 3.4 g/dL (3.5-5.0); ALKALINE PHOSPHATASE 104 IU/L (38-126); ANION GAP 10 mEq/L (8-16); ASPARTATE AMINOTRANSFERASE 45 IU/L (14-46); BILIRUBIN,TOTAL 0.9 mg/dL (0.1-1.4); BILIRUBIN-CONJUGATED 0.6 mg/dL (0.0-0.5); BILIRUBIN-UNCONJUGATED 0.3 mg/dL (0.0-1.1); CALCIUM 9.4 mg/dL (8.5-10.4); CARBON DIOXIDE 22 mEq/l (22-31); CHLORIDE 102 mEq/L (97-110); CREATININE 0.6 mg/dL (0.6-1.0); GLOMERULAR FILTRATION RATE > 60; GLUCOSE 87 mg/dL (70-100); POTASSIUM 3.6 mEq/L (3.5-5.2); SODIUM 134 mEq/L (134-144); TOTAL PROTEIN 6.1 g/dL (6.3-8.2)
[2016-12-14] MEDS ORDERED: IOPAMIDOL (ISOVUE-300) 100 ML BTL ONE (20:28)
[2016-12-14] MEDS ORDERED: PROMETHAZINE HCL 25 MG/ML INJ ONE (20:32)
[2016-12-14] MEDS ORDERED: PROMETHAZINE HCL 25 MG/ML INJ IVP ONE (20:34)
[2016-12-14] MEDS ORDERED: ACETAMINOPHEN 325 MG TAB PO PRN (22:22)
[2016-12-14] MEDS ORDERED: PROMETHAZINE HCL 25 MG/ML INJ IVP PRN (22:22)
[2016-12-14] MEDS ORDERED: ACETAMINOPHEN 650 MG SUPP PR PRN (22:22)
[2016-12-14] MEDS ORDERED: HYDROmorphONE/DILAUDID 1 MG/ML SYR IVP PRN (22:23)
[2016-12-14] MEDS ORDERED: NS 1,000 ML IV SCH (22:30)
--- NOTE | 2016-12-15 01:53 | GHP ---
[f rep st] HISTORY AND PHYSICAL DATE OF ADMISSION: 12/14/2016 CHIEF COMPLAINT: Nausea, vomiting, abdominal pain. HISTORY: The patient is a 71-year-old female with a complicated recent surgical history. She has C rohn disease and developed small bowel obstruction secondary to adhesions. She underwent lysis of a dhesions and a small-bowel resection. She subsequently developed an anastomotic leak with peritonit is and abscess formation. She went back to surgery, had an ileostomy and abscess drainage. She was on prolonged IV antibiotics. She recently had a repeat admission for poor oral intake. She was ju st discharged yesterday. During her recent hospitalization, she was noted to have severe protein-ca sherman malnutrition and spent a couple of days with a Dobbhoff tube, getting tube feeds. She pulled the Dobbhoff out. At that point, it appeared her oral intake was improving so she was [facility]. Ostomy takedown is recommended in 4-6 weeks, when she gets a little bit stronger. She now re-presents to the emergency room with a chief complaint of persistent nausea, vomiting and stabbing abdominal pain. The patient is at this time a very poor historian and I am unable to get a ny further details. It did appear she was conversant in the emergency room, although perhaps some c onfused, stating that she had been out of the hospital for 3 days when per our records, it has only been 24 hours. She is now somnolent, although I am trying to arouse her at the late hour and she is not arousing. She wakes and tells me, "I'm doing better than yesterday." She cannot further elabo rate at this time. PAST MEDICAL HISTORY: 1. Crohn disease, on chronic prednisone. 2. Small bowel obstruction due to adhesions, complicated by abdominal abscesses and requiring ileos ruslan placement. 3. Severe protein-calorie malnutrition. 4. Scoliosis. PAST SURGICAL HISTORY: Cervical fusion. Breast augmentation. MEDICATIONS: Please see computer record for full detailed list. ALLERGIES: To fentanyl. SOCIAL HISTORY: No smoking. No alcohol. She lives with her common-law . Her daughter is h power of sports attorney. She was previously at [facility]; however, after last admission, went to [facility] for 24 hours. REVIEW OF SYSTEMS: Unobtainable due to patient's current altered mental status. FAMILY HISTORY: Reviewed and noncontributory to current complaint. PHYSICAL EXAMINATION: GENERAL: This is a cachectic ill-appearing female, in no acute distress. Mariluz moy is a little somnolent. VITAL SIGNS: Temp is 37.2, pulse 96, blood pressure 129/76, saturating 94 % on room air. HEENT: Normal conjunctivae. Pupils react to light. ENT: Normal ears, nose. Hear ing intact. Normal teeth. Oropharynx moist. NECK: Trachea midline. No thyromegaly. CHEST: Nor mal effort. LUNGS: Clear to auscultation bilaterally. CARDIOVASCULAR: Regular rate and rhythm. No murmur. No lower extremity edema. ABDOMEN: Soft, nontender. No hepatosplenomegaly. She has a n ileostomy with a bag. SKIN: Warm, dry, intact. No rash. MUSCULOSKELETAL: No cyanosis or clubb ing. Strength 5/5, upper and lower extremities. NEUROLOGIC: Cranial nerves intact grossly. Sensa tion grossly intact. PSYCH: She appears confused, poor historian, somnolent but arousable. Unable to give a clear history at this time. LABORATORY DATA: White count 8.6, hematocrit 32.4, platelets 417. Sodium 134, potassium 3.6, chlor mervin 102, bicarb 22, BUN 23, creatinine 0.6, glucose 87. LFTs normal except for ALT 75, albumin 3.4, lipase is 191. CT scan of the abdomen and pelvis shows some small bowel dilatation, an 8.5 cm feca l ball. This case was discussed with Dr. Treasure Ritchie in the emergency room. She felt the fecal ball may be contributing to the patient's symptoms. MEDICAL RECORDS REVIEW: She was just discharged yesterday by Abi Grant NP. It appears she w as taking good p.o. for the last couple of days prior to discharge, so artificial nutrition was disc ontinued. ASSESSMENT/PLAN: 1. Nausea, vomiting and decreased p.o. intake. This has been waxing and waning over a period of we eks. I believe she has lost quite a large amount of weight. She has a complicated recent surgical history. Her current CAT scan is remarkable for some small bowel dilatation. We will check a small bowel follow-through in the morning to assess whether there may be any persistent obstruction contr ibuting to her inability to eat. 2. An 8.5 cm fecal ball. This is of unclear significance, as it is in the rectum and she is status post ileostomy. 3. Crohn disease. Recent complicated surgical history, including small-bowel obstruction with lyse s of adhesions, small-bowel resection, anastomotic leak leading to intraabdominal abscesses which we re subsequently drained, and subsequent ileostomy placed. On the current CAT scan, these abscesses are dramatically improving. I believe she is off antibiotics at this time. Medication reconciliati on is pending. 4. Chronic steroids for Crohn disease. We will continue her prednisone, stress dose steroids if mariluz moy becomes more acutely ill. 5. Severe protein-calorie malnutrition. She continues to lose weight and is not able to take p.o. We will consult Dietary. CODE STATUS: Full. ADMISSION STATUS: Will admit to inpatient as she is medically complex, and a difficult time control ling her symptoms outside of the hospital. DVT PROPHYLAXIS: She is high risk. We will place her on subcu Lovenox. /[id number]/MODL
[2016-12-15 05:34] LABS: % IMMATURE GRANULYOCYTES 0.3 % (0.0-1.1); ABSOLUTE IMMATURE GRANULOCYTES 0.02 10^3/uL (0.00-0.10); ADD DIFF? NO; ADD MORPH? NO; ADD SCAN? NO; ATYPICAL LYMPHOCYTE FLAG 10 (0-99); FRAGMENT RBC FLAG 0 (0-99); HEMATOCRIT 31.3 % (38.0-47.0); HEMOGLOBIN 9.7 g/dL (12.6-16.3); LEFT SHIFT FLG 10 (0-99); LIPEMIA HEMOLYSIS FLAG 80 (0-99); MEAN CELL HEMOGLOBIN 28.9 pg (27.9-34.1); MEAN CELL VOLUME 93.2 fL (81.5-99.8); MEAN PLATELET VOLUME 9.6 fL (8.7-11.7); PLATELET CLUMPS FLAG 10 (0-99); PLATELET COUNT 339 10^3/uL (150-400); RED BLOOD CELL COUNT 3.36 10^6/uL (4.18-5.33); RED CELL DISTRIBUTION WIDTH 17.2 % (11.5-15.2)
[2016-12-15 05:38] LABS: ALANINE AMINOTRANSFERASE 67 IU/L (9-52); ALKALINE PHOSPHATASE 91 IU/L (38-126); ANION GAP 8 mEq/L (8-16); ASPARTATE AMINOTRANSFERASE 32 IU/L (14-46); BILIRUBIN,TOTAL 0.8 mg/dL (0.1-1.4); BILIRUBIN-CONJUGATED 0.4 mg/dL (0.0-0.5); BILIRUBIN-UNCONJUGATED 0.4 mg/dL (0.0-1.1); C-REACTIVE PROTEIN 6.5 mg/L (<10.0); CALCIUM 9.5 mg/dL (8.5-10.4); CARBON DIOXIDE 23 mEq/l (22-31); CHLORIDE 109 mEq/L (97-110); CREATININE 0.6 mg/dL (0.6-1.0); GLOMERULAR FILTRATION RATE > 60; GLUCOSE 84 mg/dL (70-100); MAGNESIUM 1.7 mg/dL (1.6-2.3); POTASSIUM 3.6 mEq/L (3.5-5.2); SODIUM 140 mEq/L (134-144); TOTAL PROTEIN 5.8 g/dL (6.3-8.2)
[2016-12-15 06:02] LABS: COLOR YELLOW; LEUKOCYTE ESTERASE,URINE NEGATIVE (NEGATIVE); NITRITE,URINE NEGATIVE (NEGATIVE)
[2016-12-15 07:29] LABS: SEDIMENTATION RATE 44 MM/HR (0-30)
[2016-12-15] MEDS ORDERED: predniSONE 5 MG TAB PO SCH (09:00)
[2016-12-15] MEDS ORDERED: oxyCODONE IR 5 MG TAB PO PRN (09:21)
[2016-12-15] MEDS: DICYCLOMINE 10 MG CAP PO SCH ×2 (11:01→21:22)
[2016-12-15] MEDS: PREGABALIN 100 MG CAP PO SCH ×2 (11:01→21:21)
[2016-12-15] MEDS: predniSONE 5 MG TAB PO SCH ×2 (11:01→21:21)
[2016-12-15] MEDS: LORazepam 0.5 MG TAB PO SCH ×2 (11:01→21:22)
[2016-12-15] MEDS: ENOXAPARIN 40 MG/0.4 ML SYR SC SCH (11:02)
[2016-12-15] MEDS: FLUoxetine 20 MG CAP PO SCH (11:02)
[2016-12-15] MEDS: LIDOCAINE 5% 1 EA PATCH TD SCH (11:03)
[2016-12-15] MEDS: ONDANSETRON 4 MG/2 ML VIAL IVP PRN (11:12)
--- NOTE | 2016-12-15 13:55 | HOSPPROG ---
Hospitalist Progress Note Assessment/Plan: 71 yo F with complicated surgical hx and recent discharge from this hospital returning from snf with concerns that snf was unable to care for her with abdominal pain her main complaint # abdominal pain: this was largely related to nurses at snf changing her dressings per her report, today is much resolved. # n/v: patient reporting poor po intake again and has had waxing/waning sxs of abd pain/n/v. Abd ct personally reviewed and no clear explanation for her sxs. SBFT performed today, report pending. # crohns disease: with complications of SBO in the past, led to SUHAIL surgery as well as SB resection, this was complicated by anastamotic leak, peritonitis with abscess leading to ileostomy placement. Continue on chronic steroids (pred 5 bid) as well as bentyl. # acute on chronic pain with continuous opiate dependency: as above, pain now controlled and will continue her usual regimen including oxycodone, lyrica # spcm: due to protracted surgical course as above, dietary consulted # anemia: stable, chronic # IP status, will likely need to dc to a different SNF, will need CM/PT/OT involved Patient new to my care. Old records reviewed and summarized as above. Care plan reviewed with patients partner Orlando over the phone. Subjective: no significant overnight events, patient feeling much better today and states she thinks it is because the place where she was "was no [facility]", denies pain or n/v at this time Objective: Vital Signs Temp Pulse Resp BP Pulse Ox 36.9 C 93 16 89/57 L 99 12/15/16 08:19 12/15/16 08:19 12/15/16 08:19 12/15/16 08:19 12/15/16 08:19 Laboratory Results 12/15/16 05:14 12/15/16 05:14 12/14/16 12/15/16 12/16/16 05:59 05:59 05:59 Intake Total 1000 Output Total 325 Balance 675 chronically ill appearing cachectic anicteric op clear rrr no mrg cta b soft ostomy with brown liquid stool dec bulk, no cce warm dry well perfused oriented apprporiat ICD10 Worksheet Patient Problems: Problems Problem Status Onset Bronchitis Acute Malnutrition Acute Crohns disease Acute Intra-abdominal abscess Acute Abdominal pain, chronic, right lower quadrant Acute Crohns disease of small intestine Acute Abdominal pain Acute Acute Crohn's disease Acute Altered mental status Acute Severe sepsis Acute Abdominal pain Acute Vomiting Acute
[2016-12-15] MEDS: MELATONIN 3 MG TAB PO SCH (21:21)
[2016-12-16 04:53] LABS: % IMMATURE GRANULYOCYTES 0.5 % (0.0-1.1); ABSOLUTE IMMATURE GRANULOCYTES 0.03 10^3/uL (0.00-0.10); ADD DIFF? NO; ADD MORPH? NO; ADD SCAN? NO; ATYPICAL LYMPHOCYTE FLAG 30 (0-99); FRAGMENT RBC FLAG 0 (0-99); HEMATOCRIT 30.5 % (38.0-47.0); HEMOGLOBIN 9.2 g/dL (12.6-16.3); LEFT SHIFT FLG 30 (0-99); LIPEMIA HEMOLYSIS FLAG 80 (0-99); MEAN CELL HEMOGLOBIN 28.8 pg (27.9-34.1); MEAN CELL HEMOGLOBIN CONCENTR. 30.2 g/dL (32.4-36.7); MEAN CELL VOLUME 95.3 fL (81.5-99.8); MEAN PLATELET VOLUME 9.6 fL (8.7-11.7); PLATELET CLUMPS FLAG 0 (0-99); PLATELET COUNT 343 10^3/uL (150-400); RED CELL DISTRIBUTION WIDTH 16.9 % (11.5-15.2)
[2016-12-16 04:56] LABS: ANION GAP 10 mEq/L (8-16); CALCIUM 9.2 mg/dL (8.5-10.4); CARBON DIOXIDE 21 mEq/l (22-31); CHLORIDE 110 mEq/L (97-110); CREATININE 0.5 mg/dL (0.6-1.0); GLOMERULAR FILTRATION RATE > 60; GLUCOSE 74 mg/dL (70-100); POTASSIUM 3.6 mEq/L (3.5-5.2); SODIUM 141 mEq/L (134-144)
[2016-12-16] MEDS: LIDOCAINE 5% 1 EA PATCH TD SCH (09:36)
[2016-12-16] MEDS: PREGABALIN 100 MG CAP PO SCH ×2 (09:36→21:05)
[2016-12-16] MEDS: LORazepam 0.5 MG TAB PO SCH ×2 (09:36→21:05)
[2016-12-16] MEDS: CHOLECALCIFEROL VIT D3 1,000 UNITS TAB PO SCH (09:36)
[2016-12-16] MEDS: predniSONE 5 MG TAB PO SCH ×2 (09:37→21:05)
[2016-12-16] MEDS: ENOXAPARIN 40 MG/0.4 ML SYR SC SCH (09:37)
[2016-12-16] MEDS: FLUoxetine 20 MG CAP PO SCH (09:37)
[2016-12-16] MEDS: DICYCLOMINE 10 MG CAP PO SCH ×2 (09:37→21:05)
[2016-12-16] MEDS: MULTIVITAMINS 1 EACH TAB PO SCH (09:37)
[2016-12-16] MEDS ORDERED: NS 1,000 ML IV SCH (10:45)
--- NOTE | 2016-12-16 13:32 | PCMIDPN ---
Assessment/Plan: 71-year-old woman well known to the ID service # intra-abdominal abscess/peritonitis following anastomotic leak s/p SB revision for recurrent SBOs, s/p 30 days of antibiotics and 26 days of antifungal, off antibiotics for 7 days. she underwent underwent aspiration perihepatic small abscess on 12/09/2016, with approximately 12 ml of purulent material returned. cultures now show rare Mayra and coagulase-negative Staph. Unclear significance of these organisms. CT 12/14/16 showed diminishing sides of perihepatic abscess and large fecal ball, 8 cm --continue off of antibiotics with monitoring # anaerobic bacteremia secondary to intra-abdominal process: 11/16, 11/18, 12/06 blood cultures negative # delirium: Resolved with discontinuation of ertapenem approximately 1 week ago Subjective: complaining of itching at ostomy site patient is hoping to go home Objective: Vital Signs Temp Pulse Resp BP Pulse Ox 37.1 C 104 H 16 96/55 L 100 12/16/16 09:48 12/16/16 09:48 12/16/16 09:48 12/16/16 09:48 12/16/16 09:48 Laboratory Results 12/16/16 04:32 12/16/16 04:32 12/15/16 12/16/16 12/17/16 05:59 05:59 05:59 Intake Total 1000 100 Output Total 325 1200 200 Balance 675 -1100 -200 ESR 44 MM/HR (0-30) H 12/15/16 05:14 C-Reactive Protein 6.5 mg/L (<10.0) 12/15/16 05:14 - Physical Exam General Appearance: alert, no apparent distress, thin, non-toxic Respiratory: lungs clear, No accessory muscle use Cardiac/Chest: regular rate, rhythm Extremities: No pedal edema Abdomen: non-tender, soft, other ( ostomy bag with stool, ostomy stoma appears healthy) Skin: No rash Neuro/Psych: alert, normal mood/affect, oriented x 3 ICD10 Worksheet Patient Problems: Problems Problem Status Onset Abdominal pain Acute Malnutrition Acute Vomiting Acute Abdominal pain Acute Abdominal pain, chronic, right lower quadrant Acute Acute Crohn's disease Acute Altered mental status Acute Bronchitis Acute Crohns disease Acute Crohns disease of small intestine Acute Intra-abdominal abscess Acute Severe sepsis Acute
--- NOTE | 2016-12-16 14:17 | HOSPPROG ---
Hospitalist Progress Note Assessment/Plan: 71 yo F with complicated surgical hx and recent discharge from this hospital returning from snf with concerns that snf was unable to care for her with abdominal pain her main complaint # abdominal pain: this was largely related to nurses at snf changing her dressings per her report, has resolved since admission here # n/v: abd ct w/? of sbo but upper gi shows no obstruction and she is now tolerating diet without issues. # crohns disease: with complications of SBO in the past, led to SUHAIL surgery as well as SB resection, this was complicated by anastamotic leak, peritonitis with abscess leading to ileostomy placement. Continue on chronic steroids (pred 5 bid) as well as bentyl. She is s/p prolonged course of abx/antifungals and monitoring off of abx without e/o recurrent issues thus far. Appreciate ID input. # acute on chronic pain with continuous opiate dependency: as above, pain now controlled and will continue her usual regimen including oxycodone, lyrica # spcm: due to protracted surgical course as above, dietary consulted, BMI 14 # anemia: stable, chronic # IP status Care plan reviewed with CM and partner Orlando over the phone, they plan to have her return home with him as her caregiver Subjective: no significant overnight events, patient is currently feeling much better, walking/eating without abd pain or n/v. She wants to go home with her partner once she is strong enough Objective: Vital Signs Temp Pulse Resp BP Pulse Ox 37.1 C 104 H 16 96/55 L 100 12/16/16 09:48 12/16/16 09:48 12/16/16 09:48 12/16/16 09:48 12/16/16 09:48 Laboratory Results 12/16/16 04:32 12/16/16 04:32 12/15/16 12/16/16 12/17/16 05:59 05:59 05:59 Intake Total 1000 100 Output Total 325 1200 200 Balance 675 -1100 -200 chronically ill appearing cachectic anicteric op clear rrr no mrg cta b soft ostomy with brown liquid stool dec bulk, no cce warm dry well perfused oriented apprporiat - Time Spent With Patient Time Spent with Patient: greater than 35 minutes Time Spent with Patient: Greater than 35 minutes spent on this patients care, greater than 50% of time spent counseling, educating, and coordinating care regarding the above mentioned plan. ICD10 Worksheet Patient Problems: Problems Problem Status Onset Abdominal pain Acute Malnutrition Acute Vomiting Acute Abdominal pain Acute Abdominal pain, chronic, right lower quadrant Acute Acute Crohn's disease Acute Altered mental status Acute Bronchitis Acute Crohns disease Acute Crohns disease of small intestine Acute Intra-abdominal abscess Acute Severe sepsis Acute
[2016-12-16] MEDS: LORazepam 2 MG/ML INJ IVP PRN (16:46)
[2016-12-16] MEDS: ONDANSETRON 4 MG/2 ML VIAL IVP PRN (17:35)
[2016-12-16] MEDS: MELATONIN 3 MG TAB PO SCH (21:05)
[2016-12-17] MEDS: LORazepam 0.5 MG TAB PO SCH ×2 (09:13→19:39)
[2016-12-17] MEDS: PREGABALIN 100 MG CAP PO SCH ×2 (09:14→19:39)
[2016-12-17] MEDS: LIDOCAINE 5% 1 EA PATCH TD SCH (09:14)
[2016-12-17] MEDS: MULTIVITAMINS 1 EACH TAB PO SCH (09:14)
[2016-12-17] MEDS: FLUoxetine 20 MG CAP PO SCH (09:14)
[2016-12-17] MEDS: ENOXAPARIN 40 MG/0.4 ML SYR SC SCH (09:14)
[2016-12-17] MEDS: CHOLECALCIFEROL VIT D3 1,000 UNITS TAB PO SCH (09:14)
[2016-12-17] MEDS: DICYCLOMINE 10 MG CAP PO SCH ×2 (09:14→19:39)
[2016-12-17] MEDS: predniSONE 5 MG TAB PO SCH ×2 (09:14→19:39)
--- NOTE | 2016-12-17 11:59 | WOCRNPDOC ---
[facility] Advanced Assessment Note - Skin Integrity Problem, Advanced Assess Abdomen Surgical Wound/Incision Dressing Type: Latasha Life (X2) Dressing Description: Clean/Dry Exudate Amount: Scant Exudate Color: Reddish/Yellow Exudate Characteristic(s): Serosanguinous Kenzie Wound Tissue: Intact Kenzie Wound Swelling: None Wound Bed Color: Brown, Red Wound Bed Constitution: Granulation Tissue (in distal wound), Scab (in proximal wound) Wound Edges: Epithelizing Site Odor: None Site Measurement - Head-to-Toe Length X Width X Depth (cm): Distal: 1.5cmx0.4cmx0.2cm. Proximal:1.3cmx0.3cmxscab Skin Integrity Problem Comment: Patient is well-known to wound RN w/ h/o midline surgical wound which was previously treated w/ NPWT. During this assessment, the formerly larger wound has epithelialized medially creating two smaller, discrete midline abominal wounds. Presently, the proximal wound is fully scabbed and dry. Distal wound is narrow, linear, w/ a moist, granulating base. Kenzie-wound skin is intact w/ no erythema or associated swelling noted. Given the progress this wound has made in the last month, sites should continue to heal w/ minimal wound care. Report given to whipped topping finisher Dawn.
--- NOTE | 2016-12-17 13:30 | HOSPPROG ---
Hospitalist Progress Note Assessment/Plan: 71 yo F with complicated surgical hx and recent discharge from this hospital returning [facility] with concerns that [facility] was unable to care for her with abdominal pain her main complaint # abdominal pain: this was largely related to nurses at [facility] changing her dressings per her report, has resolved since admission here # n/v: abd ct w/? of sbo but upper gi shows no obstruction and she is now tolerating diet without issues. # crohns disease: with complications of SBO in the past, led to SUHAIL surgery as well as SB resection, this was complicated by anastamotic leak, peritonitis with abscess leading to ileostomy placement. Continue on chronic steroids (pred 5 bid) as well as bentyl. She is s/p prolonged course of abx/antifungals and monitoring off of abx without e/o recurrent issues thus far. Appreciate ID input. # acute on chronic pain with continuous opiate dependency: as above, pain now controlled and will continue her usual regimen including oxycodone, lyrica # spcm: due to protracted surgical course as above, dietary consulted, BMI 14 # anemia: stable, chronic # IP status Care plan reviewed with CM. Will dc either today or in the am once we can be sure she has everything she needs at home Subjective: no significant overnight events, patient feeling well, walking some , eating Objective: Vital Signs Temp Pulse Resp BP Pulse Ox 36.9 C 88 18 96/58 L 99 12/17/16 08:00 12/17/16 08:00 12/17/16 08:00 12/17/16 08:00 12/17/16 08:00 Laboratory Results 12/16/16 04:32 12/16/16 04:32 12/16/16 12/17/16 12/18/16 05:59 05:59 05:59 Intake Total 100 1498 Output Total 1200 1125 Balance -1100 373 chronically ill appearing cachectic anicteric op clear rrr no mrg cta b soft ostomy with brown liquid stool dec bulk, no cce warm dry well perfused oriented apprporiat ICD10 Worksheet Patient Problems: Problems Problem Status Onset Abdominal pain Acute Malnutrition Acute Vomiting Acute Abdominal pain Acute Abdominal pain, chronic, right lower quadrant Acute Acute Crohn's disease Acute Altered mental status Acute Bronchitis Acute Crohns disease Acute Crohns disease of small intestine Acute Intra-abdominal abscess Acute Severe sepsis Acute
[2016-12-17] MEDS: LORazepam 2 MG/ML INJ IVP PRN (15:39)
[2016-12-17] MEDS: MELATONIN 3 MG TAB PO SCH (20:59)
[2016-12-17] MEDS: ONDANSETRON 4 MG/2 ML VIAL IVP PRN (22:29)
[2016-12-18] MEDS: ONDANSETRON 4 MG/2 ML VIAL IVP PRN (02:30)
[2016-12-18] MEDS: FLUoxetine 20 MG CAP PO SCH (08:40)
[2016-12-18] MEDS: PREGABALIN 100 MG CAP PO SCH (08:41)
[2016-12-18] MEDS: MULTIVITAMINS 1 EACH TAB PO SCH (08:41)
[2016-12-18] MEDS: CHOLECALCIFEROL VIT D3 1,000 UNITS TAB PO SCH (08:41)
[2016-12-18] MEDS: DICYCLOMINE 10 MG CAP PO SCH (08:41)
[2016-12-18] MEDS: LORazepam 0.5 MG TAB PO SCH ×2 (08:41→17:11)
[2016-12-18] MEDS: predniSONE 5 MG TAB PO SCH (08:41)
[2016-12-18] MEDS: ENOXAPARIN 40 MG/0.4 ML SYR SC SCH (08:44)
[2016-12-18] MEDS: LIDOCAINE 5% 1 EA PATCH TD SCH (08:44)
[2016-12-18 08:46] VITALS: BP 112/70; PULSE 95; RESP 18; TEMP 99.3; O2SAT 94
[2016-12-18] MEDS ORDERED: ONDANSETRON DISINTEGRATING 4 MG TAB PO PRN ×2 (08:47→09:41)
--- NOTE | 2016-12-18 09:47 | PDIAF ---
- Diagnosis Diagnosis: sbo Code Status: Full Code - Medication Management Discharge Medications: Medications to Continue on Transfer Acetaminophen [Tylenol 325mg (*)] 650 mg PO Q4H PRN 12/06/16 [Last Taken Unknown ] Cholecalciferol Vit D3 [Vitamin D3 (*)] 1,000 units PO DAILY 12/06/16 [Last Taken Unknown] Dicyclomine [Bentyl 10 MG (*)] 10 mg PO BID 12/06/16 [Last Taken Unknown] Enoxaparin [Lovenox 40 MG (*)] 40 mg SQ DAILY 12/06/16 [Last Taken Unknown] FLUoxetine [Prozac 20 MG (*)] 60 mg PO DAILY 12/06/16 [Last Taken Unknown] LORazepam [Ativan (*)] 0.5 mg PO BID 12/06/16 [Last Taken Unknown] Lidocaine 5% [Lidoderm 5% Patch (*)] 1 ea TD DAILY 12/06/16 [Last Taken Unknown] Melatonin [Melatonin 3 MG (*)] 1.5 mg PO HS 12/06/16 [Last Taken Unknown] Multivitamins [Multivitamin (*)] 1 each PO DAILY 12/06/16 [Last Taken Unknown] Ondansetron Odt [Zofran Odt 4 mg (*)] 4 mg PO Q4 PRN 12/06/16 [Last Taken Unknown] Pregabalin [LYRICA] 100 mg PO BID 12/06/16 [Last Taken Unknown] Calcitriol 0.5 mcg PO DAILY #30 capsule 12/18/16 [Last Taken Unknown] oxyCODONE IR [Oxycodone Ir (*)] 5 mg PO Q4H PRN #90 tab 12/18/16 [Last Taken Unknown] predniSONE 5 mg PO DAILY #0 12/18/16 [Last Taken Unknown] Discharge Medications: Refer to the Discharge Home Medication list for PRN reason. - Orders Services needed: Home Care, Registered Nurse, Certified Tube Teller, Master Oracle Bpm Developer, Physical Therapy, Occupational Therapy Home Care Face to Face: I certify that this patient was under my care and that I had the required [id number] encounter meeting the encounter requirements on the discharge day. My findings support the fact that the patient is homebound as defined in CMS Chapter 7 Medicare Benefits Manual 30.1.1, The condition of the patient is such that there exists a normal inability to leave home and consequently, leaving home would require a considerable and taxing effort. Diet Recommendation: sodium restricted Diet Texture: Regular Texture Diet Additional: see dc instruction - Follow Up Care Current Providers and Referrals: Patient,NotPresent [Unknown] - As per Instructions Kassy Yee MD [Medical Doctor] -
--- NOTE | 2016-12-18 23:54 | GDS ---
[f rep st] DISCHARGE SUMMARY DISCHARGE DIAGNOSES: Include: 1. Crohn's disease, status post a small-bowel obstruction, with subsequent small-bowel resection an d ostomy placement. 2. Acute on chronic pain, with continuous opioid dependency. 3. Severe protein-calorie malnutrition. 4. Chronic anemia. 5. Chronic intermittent nausea and vomiting. 6. Scoliosis. HISTORY OF PRESENT ILLNESS: A 71-year-old female with a recent complicated surgical history, includ ing a small-bowel obstruction, secondary to adhesions with surgical lysis and small-bowel resection. For details of the patient's initial presentation, please see the history and physical dated 12/14. CONSULTATIONS: Include Wound Care and Infectious Disease. PROCEDURES: On 12/14/2016, patient had a CT of the abdomen that showed mildly dilated small bowel. HOSPITAL COURSE: By issue: 1. Abdominal pain, possibly a mild small-bowel obstruction. Patient was medically treated with IV fluids, IV pain medications, and supportive care. Had resolution of her abdominal discomfort, with resumption of normal ostomy output. The patient is being discharged to home, with home healthcare a nd surgical followup. 2. Chronic pain, with continuous opiate dependency. Patient is on low-dose oxycodone at dispositio n. This can be weaned in the outpatient setting. 3. Severe protein-calorie malnutrition, secondary to longstanding dietary limitation, with presumed Crohn's. The patient is tolerating improved oral intake at the time of disposition, has a nutritio nal plan for weight gain post discharge. 4. New ileostomy. Patient will receive ostomy care from home nursing, and will have outpatient jarrod gical followup in the next 2 weeks. MEDICATIONS AT THE TIME OF DISPOSITION: Please reference the med rec printed on 12/18/2016. PENDING STUDIES: At the time of this dictation are none. FOLLOWUP APPOINTMENTS: Include with Dr. Yee post discharge for her first postop followup, as well as with home nursing for ongoing ostomy care and wound care. I spent greater than 30 minutes in the planning and coordination of this discharge. /[id number]/MODL
== END 2016-12-18 18:44 | disposition home health service (06) | DRG 388 ==
LOC: EDUNIT# → OBSVTOIN 22:20 → F1N 23:00
PROVIDERS: ADMIT Internal Medicine; ATTEND Hospitalist
DX: K56.60 Unspecified intestinal obstruction (principal); K50.90 Crohn's disease, unspecified, without complications; E43 Unspecified severe protein-calorie malnutrition; Z68.1 Body mass index [BMI] 19.9 or less, adult; G89.29 Other chronic pain; M41.9 Scoliosis, unspecified; F11.20 Opioid dependence, uncomplicated; F32.9 Major depressive disorder, single episode, unspecified; F41.9 Anxiety disorder, unspecified; D64.9 Anemia, unspecified; K56.41 Fecal impaction; Z98.1 Arthrodesis status; Z93.2 Ileostomy status; Z79.52 Long term (current) use of systemic steroids
CPT/HCPCS: 96374; 97110-GO; 97116-GP; 97162-GP; 97166-GO; 97530-GO; G8978-GP-CK; G8979-GP-CI; G8980-GP-CI; G8987-GO-CL; G8988-GO-CJ; J1170; J1650; J2060; J2405; J2550; Q9967

== ENCOUNTER 2017-03-31 05:25 | Inpatient (IN) | payer OTHER, MEDICAID ==
[2017-03-31] MEDS ORDERED: levOFLOXACIN 500 MG/DEXTROSE 100 ML IV ONE (05:54)
[2017-03-31] MEDS ORDERED: LIDOCAINE 1% 2 ML INJ ID PRN (05:54)
[2017-03-31] MEDS ORDERED: LR 1,000 ML IV ONE (05:54)
--- NOTE | 2017-03-31 06:59 | PDHPUP ---
History & Physical Update H&P update statement: This history and physical update is based on an assessment of the patient which was completed after admission or registration (within 24 hours), but prior to the surgery/procedure. H&P update: H&P reviewed & patient examined H&P changes: pre op potassium and cr were slightly up. Redraw pending. Otherwise plan to go to OR for takedown if stable
[2017-03-31] MEDS ORDERED: BUPIVACAINE 0.5% 30 ML SDV ONE (07:03)
[2017-03-31 07:06] LABS: ANION GAP 13 mEq/L (8-16); CARBON DIOXIDE 17 mEq/l (22-31); CHLORIDE 108 mEq/L (97-110); CREATININE 0.9 mg/dL (0.6-1.0); GLOMERULAR FILTRATION RATE > 60; GLUCOSE 78 mg/dL (70-100); POTASSIUM 4.3 mEq/L (3.5-5.2); SODIUM 138 mEq/L (134-144)
--- NOTE | 2017-03-31 07:13 | PDANEPAE ---
ANE History of Present Illness Patient presents for ostomy take down ANE Past Medical History - Cardiovascular History Hx Hypertension: No Hx Arrhythmias: No Hx Chest Pain: No Hx Coronary Artery / Peripheral Vascular Disease: No Hx CHF / Valvular Disease: No Hx Palpitations: No - Pulmonary History Hx COPD: No Hx Asthma/Reactive Airway Disease: No Hx Recent Upper Respiratory Infection: No Hx Oxygen in Use at Home: No Hx Sleep Apnea: No Sleep Apnea Screening Result - Last Documented: Negative Pulmonary History Comment: quit smoking 2 cigs/day 03-28-17. "fluid in lungs- September while in ICU for sepsis" - Neurologic History Hx Cerebrovascular Accident: No Hx Seizures: No Hx Dementia: No - Endocrine History Hx Diabetes: No - Renal History Hx Renal Disorders: No - Liver History Hx Hepatic Disorders: No - Neurological & Psychiatric Hx Hx Neurological and Psychiatric Disorders: Yes Neurological / Psychiatric History Comment: ANXIETY, depression. scoliosis- back and neck pain. - Cancer History Hx Cancer: No - Congenital Disorder History Hx Congenital Disorders: No - GI History Hx Gastrointestinal Disorders: Yes Gastrointestinal History Comment: CROHNS DIS. "ulcers found in upper and lower bowel", VIOLENT VOMITTING after feeding tube removed. No vomitting now. - Other Health History Other Health History: NEG - Chronic Pain History Chronic Pain: Yes (back,neck.) - Surgical History Prior Surgeries: BOWEL RESECTION. TUBAL LIGATION. CERVICAL SURG. BACK SURG FOR GROWTH ANE Review of Systems Review of Systems: - Exercise capacity METS (RN): 4 METS ANE Patient History - Allergies Allergies/Adverse Reactions: fentanyl [Fentanyl] Allergy (Severe, Verified 12/14/16 19:19) WEIGHT LOSS, MEMORY LOSS Penicillins Allergy (Severe, Verified 12/14/16 19:19) SEIZURES Sulfa (Sulfonamide Antibiotics) Allergy (Severe, Verified 12/14/16 19:19) NAUSEA azathioprine Allergy (Unknown, Unverified 02/14/17 13:39) Rash budesonide Allergy (Unknown, Unverified 02/14/17 13:39) Rash gabapentin Allergy (Unknown, Unverified 02/14/17 13:39) Rash infliximab Allergy (Unknown, Unverified 02/14/17 13:39) Itching mesalamine Allergy (Unknown, Unverified 02/14/17 13:39) Rash morphine Allergy (Unknown, Verified 12/14/16 19:19) PT BECOMES "MEAN" tramadol [Tramadol] Allergy (Unknown, Verified 12/14/16 19:19) azathioprine sodium [From Imuran] Allergy (Verified 12/14/16 19:19) Rash cefuroxime [From Ceftin] Allergy (Verified 03/28/17 15:52) Other-Enter Comments ertapenem [From Invanz] Allergy (Verified 03/28/17 15:52) Other-Enter Comments azathioprine sodium Allergy (Unknown, Uncoded 02/14/17 13:39) Rash - Home Medications Home medications: home medication list seen and reviewed Home Medications: Acetaminophen [Tylenol 325mg (*)] 650 mg PO HS PRN 12/06/16 [Last Taken Unknown] Dicyclomine [Bentyl 10 MG (*)] 10 mg PO BID 12/06/16 [Last Taken Unknown] FLUoxetine [Prozac 20 MG (*)] 60 mg PO DAILY 12/06/16 [Last Taken 03/30/17] LORazepam [Ativan (*)] 0.5 mg PO BID 12/06/16 [Last Taken 03/30/17 14:00] Multivitamins [Multivitamin (*)] 1 each PO DAILY 12/06/16 [Last Taken 03/27/17] Acetamn/Diphenhydramine 500/25 [Tylenol PM (*)] 2 each PO HS 03/28/17 [Last Taken 03/30/17 14:00] Cholecalciferol Vit D3 [Vitamin D3 2000 units tab (OTC)] 2,000 units PO DAILY [Last Taken Unknown] Herbals/Supplements -Info Only 1 ea PO DAILY 03/28/17 [Last Taken Unknown] Pregabalin [Lyrica 50mg (*)] 100 mg PO TID 03/28/17 [Last Taken 03/30/17] oxyCODONE IR [Oxycodone Ir (*)] 5 mg PO BID@03/28/17 [Last Taken 03/30/17 17:00] oxyCODONE IR [Oxycodone Ir (*)] 10 mg PO DAILY 03/28/17 [Last Taken 03/30/17 08: 00] - NPO status NPO Status: no food or drink >8 hours - Anes Hx Anes Hx: no prior problems - Smoking Hx Smoking Status: Current some day smoker - Family Anes Hx Family Hx Anesthesia Complications: NEG ANE Labs/Vital Signs - Labs Result Diagrams: 03/31/17 06:30 - Vital Signs Height: 134.62 cm Weight: 40.823 kg ANE Physical Exam - Airway Neck exam: decreased ROM, spinal fusion Mallampati Score: Class 2 Mouth exam: normal dental/mouth exam - Pulmonary Pulmonary: no respiratory distress - Cardiovascular Cardiovascular: regular rate and rhythym - ASA Status ASA Status: III ANE Anesthesia Plan Anesthesia Plan: general endotracheal anesthesia (RBA discussed)
[2017-03-31] MEDS ORDERED: PROPOFOL 200 MG/20 ML VIAL ONE (07:15)
[2017-03-31] MEDS ORDERED: ROCURONIUM 50 MG/5 ML VIAL ONE ×2 (07:16→07:56)
[2017-03-31] MEDS ORDERED: PHENYLEPHRINE HCL 100 MCG/ML SYR ONE (07:28)
[2017-03-31] MEDS ORDERED: epHEDrine SULFATE 10 MG/ML SYR ONE (07:38)
[2017-03-31] MEDS ORDERED: DEXAMETHASONE 4 MG/ML VIAL ONE (07:40)
[2017-03-31] MEDS ORDERED: ONDANSETRON 4 MG/2 ML VIAL ONE (07:40)
[2017-03-31] MEDS ORDERED: ALBUTEROL 3 ML DEYVIAL IH PRN (09:04)
[2017-03-31] MEDS ORDERED: NALOXONE HCL 0.4 MG/ML INJ IVP PRN (09:04)
[2017-03-31] MEDS ORDERED: LR 500 ML IV PRN (09:04)
[2017-03-31] MEDS ORDERED: ONDANSETRON 4 MG/2 ML VIAL IVP PRN ×2 (09:04→09:10)
[2017-03-31] MEDS ORDERED: SUGAMMADEX SODIUM 200 MG/2 ML VIAL IVP ONE (09:05)
[2017-03-31] MEDS ORDERED: ACETAMINOPHEN 325 MG TAB PO PRN (09:10)
--- NOTE | 2017-03-31 09:14 | POSTOPPROG ---
Post Op Note Date of Operation: 03/31/17 Surgeon: Kassy Yee Industrial Green Systems Designer: jim Anesthesiologist: benedict Anesthesia: GET(General Endotracheal) Pre-op Diagnosis: ileostomy crohns Post-op Diagnosis: same Indication: 71 yo with bowel perf, crohns, ostomy Procedure: ileostomy take down Findings: adhesions Inf/Abcess present in the surg proc area at time of surgery?: No Specimen(s): ileostomy
[2017-03-31] MEDS ORDERED: HYDROmorphONE/DILAUDID 1 MG/ML INJ ONE ×2 (09:31→10:17)
--- NOTE | 2017-03-31 09:35 | POSTANESTH ---
Post Anesthetic Evaluation Cardiovascular Status: Normal, Stable Respiratory Status: Normal, Stable Level of Consciousness/Mental Status: Can Participate in Eval Pain Control: Adequate, Prn Tx Ordered Nausea/Vomiting Control: Adequate, Prn Tx Ordered Complications Possibly Related to Anesthesia: None Noted
[2017-03-31] MEDS: HYDROmorphONE/DILAUDID 1 MG/ML INJ IVP PRN ×9 (09:39→20:23)
[2017-03-31] MEDS: PREGABALIN 50 MG CAP PO SCH ×2 (16:08→21:38)
[2017-03-31] MEDS: LORazepam 0.5 MG TAB PO SCH (20:23)
[2017-03-31] MEDS: DICYCLOMINE 10 MG CAP PO SCH (20:23)
[2017-03-31] MEDS: ACETAMN/DIPHENHYDRAMINE 500/25MG TAB PO SCH (20:23)
[2017-04-01 05:41] LABS: % IMMATURE GRANULYOCYTES 0.1 % (0.0-1.1); ABSOLUTE IMMATURE GRANULOCYTES 0.01 10^3/uL (0.00-0.10); ADD DIFF? NO; ADD MORPH? NO; ADD SCAN? NO; ATYPICAL LYMPHOCYTE FLAG 0 (0-99); FRAGMENT RBC FLAG 0 (0-99); HEMOGLOBIN 10.1 g/dL (12.6-16.3); LEFT SHIFT FLG 10 (0-99); LIPEMIA HEMOLYSIS FLAG 80 (0-99); MEAN CELL HEMOGLOBIN CONCENTR. 32.6 g/dL (32.4-36.7); MEAN CELL VOLUME 82.9 fL (81.5-99.8); MEAN PLATELET VOLUME 10.1 fL (8.7-11.7); PLATELET CLUMPS FLAG 0 (0-99); PLATELET COUNT 321 10^3/uL (150-400); RED BLOOD CELL COUNT 3.74 10^6/uL (4.18-5.33)
[2017-04-01 05:52] LABS: ANION GAP 8 mEq/L (8-16); CARBON DIOXIDE 19 mEq/l (22-31); CHLORIDE 111 mEq/L (97-110); CREATININE 0.9 mg/dL (0.6-1.0); GLOMERULAR FILTRATION RATE > 60; GLUCOSE 72 mg/dL (70-100); POTASSIUM 3.5 mEq/L (3.5-5.2); SODIUM 138 mEq/L (134-144)
[2017-04-01] MEDS: DICYCLOMINE 10 MG CAP PO SCH ×2 (08:40→21:03)
[2017-04-01] MEDS: PREGABALIN 50 MG CAP PO SCH ×3 (08:41→21:02)
[2017-04-01] MEDS: LORazepam 0.5 MG TAB PO SCH ×2 (08:41→21:03)
[2017-04-01] MEDS: FLUoxetine 20 MG CAP PO SCH (08:41)
[2017-04-01] MEDS: oxyCODONE IR 5 MG TAB PO PRN (08:55)
[2017-04-01] MEDS: NS 1,000 ML IV SCH (08:55)
[2017-04-01] MEDS ORDERED: MAGNESIUM HYDROXIDE 30 ML UDCUP PO PRN (10:47)
[2017-04-01] MEDS ORDERED: POLYETHYLENE GLYCOL 3350 17 GM PKT PO PRN (10:47)
--- NOTE | 2017-04-01 11:21 | SOAPPROG ---
SOAP Progress Note Assessment/Plan: Assessment: 71yo F POD#1 s/p ileostomy takedown and adhesiolysis Passing flatus Advance to clear liquid diet Pain controlled Will change ileostomy takedown site in 1 week or prior to dc OK to shower with allevyn dressing in place Ambulate Seen c Dr. Joselito PRASAD when return of bowel function and pain controlled S: feeling great. passed gas 3 times. pain controlled O: laying in bed, comfortable, NAD Hair and makeup done No increased WOB No peripheral edema +BS, softly distended, nontender. Dressings intact Objective: Vital Signs Temp Pulse Resp BP Pulse Ox 37.0 C 77 18 116/72 93 04/01/17 08:00 04/01/17 08:00 04/01/17 08:00 04/01/17 08:00 04/01/17 08:00 Laboratory Results 04/01/17 04:39 04/01/17 04:39 03/31/17 04/01/17 04/02/17 05:59 05:59 05:59 Intake Total 3346 Output Total 200 Balance 3146 ICD10 Worksheet Patient Problems: Problems Problem Status Onset Abdominal pain Acute Abdominal pain Acute Abdominal pain, chronic, right lower quadrant Acute Acute Crohn's disease Acute Altered mental status Acute Bronchitis Acute Crohns disease Acute Crohns disease of small intestine Acute Intra-abdominal abscess Acute Malnutrition Acute Severe sepsis Acute Vomiting Acute
[2017-04-01] MEDS: HYDROmorphONE/DILAUDID 1 MG/ML INJ IVP PRN (14:04)
--- NOTE | 2017-04-01 17:21 | ASMTCMCOM ---
CM Note CM Note Notes: Met w/pt re; dc poc. Pt cleared by PT/OT, anticipate will dc home w/support of when medically stable. CM available for any changes. Date Signed: 04/01/2017 05:20 PM Electronically Signed By:Martha Santacruz RN
[2017-04-01] MEDS: SENNOSIDES/DOCUSATE SODIUM TAB PO SCH (21:03)
[2017-04-01] MEDS: ACETAMN/DIPHENHYDRAMINE 500/25MG TAB PO SCH (21:03)
[2017-04-02] MEDS: NS 1,000 ML IV SCH (00:31)
[2017-04-02] MEDS: SENNOSIDES/DOCUSATE SODIUM TAB PO SCH ×2 (08:06→21:14)
[2017-04-02] MEDS: FLUoxetine 20 MG CAP PO SCH (08:49)
[2017-04-02] MEDS: PREGABALIN 50 MG CAP PO SCH ×3 (08:50→21:14)
[2017-04-02] MEDS: DICYCLOMINE 10 MG CAP PO SCH ×2 (08:51→21:14)
[2017-04-02] MEDS: LORazepam 0.5 MG TAB PO SCH ×2 (08:52→21:14)
[2017-04-02] MEDS: oxyCODONE IR 5 MG TAB PO PRN ×2 (15:46→21:12)
--- NOTE | 2017-04-02 16:13 | SOAPPROG ---
SOAP Progress Note Assessment/Plan: Assessment: doing great postop colostomy closure / wants to go home soon / positive BMs and flatus abdomen soft, wound okay, positive bowel sounds / afebrile Plan: home in the a.m. if tolerating regular diet 04/02/17 16:11 Objective: Vital Signs Temp Pulse Resp BP Pulse Ox 37.1 C 85 20 117/68 94 04/02/17 15:58 04/02/17 15:58 04/02/17 15:58 04/02/17 15:58 04/02/17 15:58 Laboratory Results 04/01/17 04:39 04/01/17 04:39 04/01/17 04/02/17 04/03/17 05:59 05:59 05:59 Intake Total 3346 Output Total 200 Balance 3146 ICD10 Worksheet Patient Problems: Problems Problem Status Onset Abdominal pain Acute Abdominal pain Acute Abdominal pain, chronic, right lower quadrant Acute Acute Crohn's disease Acute Altered mental status Acute Bronchitis Acute Crohns disease Acute Crohns disease of small intestine Acute Intra-abdominal abscess Acute Malnutrition Acute Severe sepsis Acute Vomiting Acute
[2017-04-02] MEDS: ACETAMN/DIPHENHYDRAMINE 500/25MG TAB PO SCH (21:12)
[2017-04-03 03:34] VITALS: RESP 16
[2017-04-03 07:05] VITALS: BP 111/73; PULSE 79; TEMP 98.3; O2SAT 96
[2017-04-03] MEDS: PREGABALIN 50 MG CAP PO SCH (09:05)
[2017-04-03] MEDS: SENNOSIDES/DOCUSATE SODIUM TAB PO SCH (09:05)
[2017-04-03] MEDS: FLUoxetine 20 MG CAP PO SCH (09:05)
[2017-04-03] MEDS: DICYCLOMINE 10 MG CAP PO SCH (09:05)
[2017-04-03] MEDS: LORazepam 0.5 MG TAB PO SCH (09:05)
--- NOTE | 2017-04-03 13:15 | SOAPPROG ---
SOAP Progress Note Assessment/Plan: Assessment: doing great postop colostomy closure / wants to go home soon / positive BMs and flatus abdomen soft, wound okay, positive bowel sounds / afebrile Plan: home in the a.m. if tolerating regular diet 04/02/17 16:11 04/03/17 13:12 AFEBRILE/ANXIOUS TO GO HOME/EATING WELL/POSITIVE BOWEL MOVEMENTS/WOUND OKAY/ PLAN HOME TODAY Objective: Vital Signs Temp Pulse Resp BP Pulse Ox 36.8 C 79 16 111/73 96 04/03/17 07:04 04/03/17 07:04 04/03/17 07:04 04/03/17 07:04 04/03/17 07:04 Laboratory Results 04/01/17 04:39 04/01/17 04:39 04/02/17 04/03/17 04/04/17 05:59 05:59 05:59 Intake Total 1280 Balance 1280 ICD10 Worksheet Patient Problems: Problems Problem Status Onset Abdominal pain Acute Abdominal pain Acute Abdominal pain, chronic, right lower quadrant Acute Acute Crohn's disease Acute Altered mental status Acute Bronchitis Acute Crohns disease Acute Crohns disease of small intestine Acute Intra-abdominal abscess Acute Malnutrition Acute Severe sepsis Acute Vomiting Acute
--- NOTE | 2017-04-03 15:16 | ASDISCHSUM ---
Discharge Information Plan Status:Home with No Needs Medically Cleared to Leave:04/03/2017 Discharge Date:04/03/2017 01:13 PM CM D/C Disposition:Home, Routine, Self-Care ADT D/C Disposition:Home, Routine, Self-Care Projected Discharge Date:04/03/2017 01:13 PM Transportation at D/C:Medicaid Transportation Discharge Delay Reason: Follow-Up Date:04/03/2017 01:13 PM Discharge Slot: Final Diagnosis: Placement Information Patient Contact Information Contact Name:KANDICE Relationship:Life Partner Address:[address] Work Phone: City:[facility] Phone: [facility]/Zip Code:[place] [address] Email: Financial Information Financial Class: Primary Plan Desc:MEDICARE INPATIENT Primary Plan Number:[id number] Secondary Plan Desc:MED[place] Secondary Plan Number:[id number] Assessment Information [facility] CM Progress Note CM Note CM Note Notes: Met w/pt re; dc poc. Pt cleared by PT/OT, anticipate will dc home w/support of when medically stable. CM available for any changes. Date Signed: 04/01/2017 05:20 PM Electronically Signed By:Martha Santacruz RN Intervention Information
== END 2017-04-03 13:13 | disposition home or self-care (01) | DRG 331 ==
LOC: F3E 05:25 → UNDODISIN 04-03 12:44
PROVIDERS: ADMIT Surgery; ATTEND Surgery
PROC: 0DBB0ZZ Excision of Ileum, Open Approach (ICD-10-PCS; principal; 2017-03-31 07:15)
DX: Z43.2 Encounter for attention to ileostomy (principal); F41.8 Other specified anxiety disorders; K66.0 Peritoneal adhesions (postprocedural) (postinfection)
CPT/HCPCS: 80048-PO; 97161-GP; 97165-GO; G8978-GP-CI; G8979-GP-CI; G8980-GP-CI; G8987-GO-CI; G8988-GO-CI; G8989-GO-CI; J1100; J1170; J1956; J2370; J2405; J2704

== ENCOUNTER 2017-04-06 16:15 | Inpatient (IN) | payer OTHER, MEDICAID ==
--- NOTE | 2017-04-06 16:28 | EDPHY ---
H & P HPI/ROS: CHIEF COMPLAINT: Rectal pain HISTORY OF PRESENT ILLNESS: The patient is a 71-year-old female with a complicated past medical history who presents emergency department with rectal pain. Patient has significant Crohn's disease. This required colostomy placement. This was taken down [address] Yee. She was recovering well. She had 2 bowel movements in the hospital which were "diarrhea." She was discharged home. Today she developed increasing rectal pain. She also describes abdominal bloating and distension. No nausea vomiting. No fevers or chills. No dysuria frequency. REVIEW OF SYSTEMS: My complete review of systems is negative except as mentioned in the HPI. Past Medical/Surgical History: Includes a back pain, chronic pain, Crohn's disease, depression, vitamin-D deficiency Past surgical history: Lysis of adhesions, breast augmentation, cervical diskectomy, colectomy, laminectomy, bili hernia, ostomy takedown Smoking Status: Current some day smoker Physical Exam: Vitals noted GENERAL: No acute distress, alert. HEENT: Eyes normal to inspection, normal pharynx, no signs of dehydration. NECK: No thyromegaly, no lymphadenopathy, supple. RESPIRATORY: Clear to auscultation bilaterally, no rales, rhonchi or wheezing. CVS: Regular rate and rhythm, no rubs, murmurs, or gallops. ABDOMEN: Soft, moderate distension. The wound site appears to to be healing. There is no surrounding erythema. No pus or discharge. Mild diffuse tenderness to palpation with no rebound or guarding. BACK: Normal to inspection, no CVA tenderness. SKIN: Normal color, no rash, warm, dry. No pallor. EXTREMITIES: No pedal edema, no calf tenderness, no joint swelling. NEURO/PSYCH: Alert and oriented, normal mood and affect, normal motor sensory exam. Constitutional: Initial Vital Signs Temperature (C) 37.6 C 04/06/17 16:23 Heart Rate 76 04/06/17 16:23 Respiratory Rate 18 04/06/17 16:23 Blood Pressure 136/81 H 04/06/17 16:23 O2 Sat (%) 98 04/06/17 16:23 O2 Delivery Mode Room Air Allergies/Adverse Reactions: fentanyl [Fentanyl] Allergy (Severe, Verified 12/14/16 19:19) WEIGHT LOSS, MEMORY LOSS Penicillins Allergy (Severe, Verified 04/06/17 21:46) SEIZURES Sulfa (Sulfonamide Antibiotics) Allergy (Severe, Verified 04/06/17 21:46) NAUSEA azathioprine Allergy (Unknown, Unverified 04/06/17 21:46) Rash budesonide Allergy (Unknown, Unverified 04/06/17 21:46) Rash gabapentin Allergy (Unknown, Unverified 04/06/17 21:46) Rash infliximab Allergy (Unknown, Unverified 04/06/17 21:46) Itching mesalamine Allergy (Unknown, Unverified 04/06/17 21:46) Rash morphine Allergy (Unknown, Verified 04/06/17 21:46) PT BECOMES "MEAN" tramadol [Tramadol] Allergy (Unknown, Verified 04/06/17 21:46) azathioprine sodium [From Imuran] Allergy (Verified 04/06/17 21:46) Rash cefuroxime [From Ceftin] Allergy (Verified 04/06/17 21:46) Other-Enter Comments ertapenem [From Invanz] Allergy (Verified 04/06/17 21:46) Other-Enter Comments azathioprine sodium Allergy (Unknown, Uncoded 04/06/17 21:46) Rash Home Medications: Medication Instructions Recorded Acetaminophen [Tylenol 325mg (*)] 650 mg PO HS PRN 12/06/16 Dicyclomine [Bentyl 10 MG (*)] 10 mg PO BID 12/06/16 FLUoxetine [Prozac 20 MG (*)] 60 mg PO DAILY 12/06/16 LORazepam [Ativan (*)] 0.5 mg PO BID 12/06/16 Multivitamins [Multivitamin (*)] 1 each PO DAILY 12/06/16 Acetamn/Diphenhydramine 500/25 2 each PO HS 03/28/17 [Tylenol PM (*)] Cholecalciferol Vit D3 [Vitamin D3 2,000 units PO DAILY 03/28/17 2000 units tab (OTC)] Herbals/Supplements -Info Only 1 ea PO DAILY 03/28/17 Pregabalin [Lyrica 50mg (*)] 100 mg PO TID 03/28/17 oxyCODONE IR [Oxycodone Ir (*)] 5 mg PO BID@14,21 03/28/17 oxyCODONE IR [Oxycodone Ir (*)] 10 mg PO DAILY 03/28/17 Medical Decision Making - Diagnostics Imaging Results: Imaging Impressions Abdomen CT 04/06/17 16:29 Impression: 1. Small amount of free intraperitoneal fluid and air with minimal peritoneal enhancement, without definite evidence of peritonitis, likely within expected limits for recent postoperative status. If symptoms persist or clinical suspicion warrants, consider follow-up CT with oral contrast. 2. Fecal impaction. 3. 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 4. Mild wall thickening of the ileocolonic anastomosis, which could be related to inflammation or postoperative edema. 5. Additional findings as above. Findings discussed with Dr. Humaira Lira on April 06, 2017 at 1820 hours. ED Course/Re-evaluation: A I met EMS on arrival. I took report from the java swing developer. I discussed the plan with the patient. I answered all her questions. Per EMS, the patient received morphine 5 mg total. Her symptoms are much improved. Laboratory studies and CT were ordered. I reviewed the patient's laboratory studies. Of note her hematocrit was slightly low at 29. Her previous hematocrit on 04/01/2017 was 31. Patient's CBC is normal. Chemistries unremarkable. Patient's urine showed a 5-10 red cells, 3-5 white cells and 15-25 hyaline casts. Negative nitrate, negative bilirubin. CT of the abdomen and pelvis: Please refer the dictated report by Dr. Lebron. I discussed the case with him on the phone. Patient has fecal impaction. There is no signs of distended bowel. 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 This was reviewed with Dr. Madeline Singh. She recommends that the patient take aspirin but does not need other intervention at this time. I discussed the case with Dr. Denis Doan. I discussed the CT findings. He felt comfortable with the patient undergoing enema. I discussed the results with the patient. She was given a soapsuds enema. On recheck she did not have much relief from the soapsuds enema. Fleet's enema was performed. Post Fleet's enema the patient had minimal relief. She is given a mineral enema. I rechecked the patient. She was having some relief from the enema. However, she stated she still had a fair amount of discomfort. A glycerin suppository was placed. She felt that there was "no way" she go home due to the discomfort. I discussed case with Dr. Doan. He will admit the patient for observation. Differential Diagnosis: My differential includes but is not limited to small-bowel obstruction, volvulus , perforation, abscess, constipation - Data Points Laboratory Results: Laboratory Results 04/06/17 16:15 04/06/17 16:15 04/06/17 04/06/17 04/06/17 16:45 16:32 16:15 WBC RBC Hgb Hct MCV MCH MCHC RDW Plt Count MPV Neut % (Auto) Lymph % (Auto) [place] % (Auto) Eos % (Auto) Baso % (Auto) Nucleat RBC Rel Count Absolute Neuts (auto) Absolute Lymphs (auto) Absolute Monos (auto) Absolute Eos (auto) Absolute Basos (auto) Absolute Nucleated RBC Immature Gran % Immature Gran # PT 14.6 SEC SEC (12.0-15.0) INR 1.15 (0.83-1.16) APTT 37.6 SEC SEC (23.0-38.0) Sodium 138 mEq/L mEq/L (134-144) Potassium 4.2 mEq/L mEq/L (3.5-5.2) Chloride 102 mEq/L mEq/L (97-110) Carbon Dioxide 23 mEq/l mEq/l (22-31) Anion Gap 13 mEq/L mEq/L (8-16) BUN 15 mg/dL mg/dL (7-23) Creatinine 0.8 mg/dL mg/dL (0.6-1.0) Estimated GFR > 60 Glucose 87 mg/dL mg/dL (70-100) Calcium 9.6 mg/dL mg/dL (8.5-10.4) Total Bilirubin Conjugated Bilirubin Unconjugated Bilirubin AST ALT Alkaline Phosphatase Total Protein Albumin Lipase Beta HCG, Qual Urine Color YELLOW Urine Appearance HAZY Urine pH 5.0 (5.0-7.5) Ur Specific [place] 1.011 (1.002-1.030) Urine Protein NEGATIVE (NEGATIVE) Urine Ketones NEGATIVE (NEGATIVE) Urine Blood 1+ H (NEGATIVE) Urine Nitrate NEGATIVE (NEGATIVE) Urine Bilirubin NEGATIVE (NEGATIVE) Urine Urobilinogen NEGATIVE EU EU (0.2-1.0) Ur Leukocyte Esterase TRACE H (NEGATIVE) Urine RBC 5-10 /hpf H /hpf (0-3) Urine WBC 3-5 /hpf H /hpf (0-3) Ur Epithelial Cells TRACE /lpf /lpf (NONE-1+) Hyaline Casts 15-25 /lpf H /lpf (0-1) Urine Mucus 2+ /lpf H /lpf (NONE-1+) Urine Glucose NEGATIVE (NEGATIVE) 04/06/17 04/06/17 04/06/17 16:15 16:15 16:15 WBC 8.11 10^3/uL 10^3/uL (3.80-9.50) RBC 3.59 10^6/uL L 10^6/uL (4.18-5.33) Hgb 10.0 g/dL L g/dL (12.6-16.3) Hct 29.9 % L % (38.0-47.0) MCV 83.3 fL fL (81.5-99.8) MCH 27.9 pg pg (27.9-34.1) MCHC 33.4 g/dL g/dL (32.4-36.7) RDW 18.5 % H % (11.5-15.2) Plt Count 364 10^3/uL 10^3/uL (150-400) MPV 10.4 fL fL (8.7-11.7) Neut % (Auto) 65.6 % % (39.3-74.2) Lymph % (Auto) 22.1 % % (15.0-45.0) [place] % (Auto) 9.5 % % (4.5-13.0) Eos % (Auto) 2.1 % % (0.6-7.6) Baso % (Auto) 0.5 % % (0.3-1.7) Nucleat RBC Rel Count 0.0 % % (0.0-0.2) Absolute Neuts (auto) 5.32 10^3/uL 10^3/uL (1.70-6.50) Absolute Lymphs (auto) 1.79 10^3/uL 10^3/uL (1.00-3.00) Absolute Monos (auto) 0.77 10^3/uL 10^3/uL (0.30-0.80) Absolute Eos (auto) 0.17 10^3/uL 10^3/uL (0.03-0.40) Absolute Basos (auto) 0.04 10^3/uL 10^3/uL (0.02-0.10) Absolute Nucleated RBC 0.00 10^3/uL 10^3/uL (0-0.01) Immature Gran % 0.2 % % (0.0-1.1) Immature Gran # 0.02 10^3/uL 10^3/uL (0.00-0.10) PT INR APTT Sodium Potassium Chloride Carbon Dioxide Anion Gap BUN Creatinine Estimated GFR Glucose Calcium Total Bilirubin 0.4 mg/dL mg/dL (0.1-1.4) Conjugated Bilirubin 0.3 mg/dL mg/dL (0.0-0.5) Unconjugated Bilirubin 0.1 mg/dL mg/dL (0.0-1.1) AST 27 IU/L IU/L (14-46) ALT 37 IU/L IU/L (9-52) Alkaline Phosphatase 67 IU/L IU/L (38-126) Total Protein 6.7 g/dL g/dL (6.3-8.2) Albumin 3.9 g/dL g/dL (3.5-5.0) Lipase 64 IU/L IU/L (23-300) Beta HCG, Qual NEGATIVE Urine Color Urine Appearance Urine pH Ur Specific [place] Urine Protein Urine Ketones Urine Blood Urine Nitrate Urine Bilirubin Urine Urobilinogen Ur Leukocyte Esterase Urine RBC Urine WBC Ur Epithelial Cells Hyaline Casts Urine Mucus Urine Glucose Medications Given: Discontinued Medications Glycerin (Glycerin Adult) 1 each HI ONCE ONE Stop: 04/06/17 21:33 Last Admin: 04/06/17 21:45 Dose: 1 each Morphine Sulfate (Morphine) 4 mg IVP EDNOW ONE Stop: 04/06/17 17:36 Last Admin: 04/06/17 17:58 Dose: 4 mg Departure - Departure Disposition: [facility] Clinical Impression: Abdominal pain Qualifiers: Abdominal location: generalized Qualified Code(s): R10.84 - Generalized abdominal pain Constipation Qualifiers: Constipation type: other constipation type Qualified Code(s): K59.09 - Other constipation Condition: Good Referrals: NONE *PRIMARY CARE P,. [Primary Care Provider] - As per Instructions
[2017-04-06 16:42] LABS: % IMMATURE GRANULYOCYTES 0.2 % (0.0-1.1); ABSOLUTE IMMATURE GRANULOCYTES 0.02 10^3/uL (0.00-0.10); ADD DIFF? NO; ADD MORPH? NO; ADD SCAN? NO; ATYPICAL LYMPHOCYTE FLAG 0 (0-99); FRAGMENT RBC FLAG 20 (0-99); HEMATOCRIT 29.9 % (38.0-47.0); LEFT SHIFT FLG 0 (0-99); LIPEMIA HEMOLYSIS FLAG 80 (0-99); MEAN CELL HEMOGLOBIN 27.9 pg (27.9-34.1); MEAN CELL HEMOGLOBIN CONCENTR. 33.4 g/dL (32.4-36.7); MEAN CELL VOLUME 83.3 fL (81.5-99.8); MEAN PLATELET VOLUME 10.4 fL (8.7-11.7); PLATELET CLUMPS FLAG 0 (0-99); PLATELET COUNT 364 10^3/uL (150-400); RED BLOOD CELL COUNT 3.59 10^6/uL (4.18-5.33); RED CELL DISTRIBUTION WIDTH 18.5 % (11.5-15.2)
[2017-04-06 16:46] LABS: COLOR YELLOW; LEUKOCYTE ESTERASE,URINE TRACE (NEGATIVE); NITRITE,URINE NEGATIVE (NEGATIVE)
[2017-04-06 16:50] LABS: ALBUMIN 3.9 g/dL (3.5-5.0); BILIRUBIN,TOTAL 0.4 mg/dL (0.1-1.4); BILIRUBIN-CONJUGATED 0.3 mg/dL (0.0-0.5); BILIRUBIN-UNCONJUGATED 0.1 mg/dL (0.0-1.1); TOTAL PROTEIN 6.7 g/dL (6.3-8.2)
[2017-04-06 16:56] LABS: HYALINE CASTS 15-25 /lpf (0-1); MUCUS 2+ /lpf (NONE-1+)
[2017-04-06 17:11] LABS: ANION GAP 13 mEq/L (8-16); CALCIUM 9.6 mg/dL (8.5-10.4); CARBON DIOXIDE 23 mEq/l (22-31); CHLORIDE 102 mEq/L (97-110); CREATININE 0.8 mg/dL (0.6-1.0); GLOMERULAR FILTRATION RATE > 60; GLUCOSE 87 mg/dL (70-100); POTASSIUM 4.2 mEq/L (3.5-5.2); SODIUM 138 mEq/L (134-144)
[2017-04-06 17:12] LABS: INR 1.15 (0.83-1.16); PROTIME(PATIENT) 14.6 SEC (12.0-15.0)
[2017-04-06 17:13] LABS: APTT 37.6 SEC (23.0-38.0)
[2017-04-06] MEDS ORDERED: IOPAMIDOL (ISOVUE-300) 100 ML BTL ONE (17:36)
[2017-04-06] MEDS ORDERED: LORazepam 1 MG TAB PO ONE (21:31)
[2017-04-06] MEDS ORDERED: GLYCERIN ADULT 1 EACH SUPP PR ONE (21:32)
[2017-04-07] MEDS ORDERED: BISACODYL 10 MG SUPP PR PRN (08:32)
[2017-04-07] MEDS ORDERED: POLYETHYLENE GLYCOL 3350 17 GM PKT PO PRN (08:32)
[2017-04-07] MEDS: FLUoxetine 20 MG CAP PO SCH (08:47)
[2017-04-07] MEDS: DICYCLOMINE 10 MG CAP PO SCH ×2 (08:48→20:21)
[2017-04-07] MEDS: PREGABALIN 50 MG CAP PO SCH ×3 (08:48→20:21)
[2017-04-07] MEDS: SENNOSIDES/DOCUSATE SODIUM TAB PO SCH ×2 (08:48→20:21)
[2017-04-07] MEDS: oxyCODONE IR 5 MG TAB PO SCH ×3 (08:49→20:23)
[2017-04-07] MEDS: LORazepam 0.5 MG TAB PO SCH ×2 (08:49→20:21)
--- NOTE | 2017-04-07 11:06 | ASMTCMCOM ---
CM Note CM Note Notes: Spoke w/RN, anticipate will dc home w/support of when medically stable. CM available for any changes. Date Signed: 04/07/2017 11:06 AM Electronically Signed By:Martha Santacruz RN
--- NOTE | 2017-04-07 14:37 | GHP ---
[f rep st] HISTORY AND PHYSICAL DATE OF ADMISSION: 04/06/2017 HISTORY OF PRESENT ILLNESS: The patient is a 71-year-old female who has a history of Crohn disease. She just recently had a closure of the ileostomy with an ileocolonic anastomosis. She presents to [facility] ER with complaints of constipation and abdominal distention. Denies any fever, chills, or dischar ge from the rectum at this time. In the ER, she was found to have a huge fecal ball, which was unabl e to be evacuated with enemas in the emergency room. She is admitted at this time for pain control a nd further catharsis. PAST HISTORY: Includes Crohn disease, some depression, and vitamin D deficiency. She has had lysis of adhesions, breast augmentation, cervical diskectomy. She has had a colectomy, laminectomy, inguin al hernias, and recent colostomy takedown. REVIEW OF SYSTEMS: Reveals no other major medical problems on full, complete review of systems, exce pt that she does smoke. PHYSICAL EXAMINATION: GENERAL: Reveals alert, cooperative, 71-year-old female in no acute distress. HEAD AND NECK: Reveals no icterus, adenopathy, or oral lesions. CHEST: Clear and symmetric. CAR DIAC: Regular rhythm. ABDOMEN: Soft, mildly distended. Her recent wound is healing well. There i s no real distention. EXTREMITIES: Have full range of motion. SKIN: Reveals no major lesions. NE UROLOGIC: Physiologic. RECTAL: Reveals a stool impaction. IMPRESSION: Rectal stool impaction. PLAN: Admit for catharsis. /[id number]/MODL
[2017-04-07] MEDS: MAGNESIUM HYDROXIDE 30 ML UDCUP PO PRN (18:22)
[2017-04-07] MEDS: LACTULOSE 20 GM/30 ML UDCUP PO PRN (18:22)
[2017-04-07] MEDS ORDERED: oxyCODONE IR 5 MG TAB PO ONE (20:15)
[2017-04-07] MEDS: ACETAMN/DIPHENHYDRAMINE 500/25MG TAB PO SCH (20:20)
[2017-04-08] MEDS: FLUoxetine 20 MG CAP PO SCH (08:07)
[2017-04-08] MEDS: SENNOSIDES/DOCUSATE SODIUM TAB PO SCH ×2 (08:07→21:00)
[2017-04-08] MEDS: oxyCODONE IR 5 MG TAB PO SCH ×3 (08:08→21:00)
[2017-04-08] MEDS: PREGABALIN 50 MG CAP PO SCH ×3 (08:08→21:00)
[2017-04-08] MEDS: DICYCLOMINE 10 MG CAP PO SCH ×2 (08:08→20:59)
[2017-04-08] MEDS: LORazepam 0.5 MG TAB PO SCH ×2 (08:08→21:00)
--- NOTE | 2017-04-08 08:09 | SOAPPROG ---
SOAP Progress Note Assessment/Plan: Assessment: HD # 2 for fecal impactation following ostomy takedown enemas regular diet Large stool ball - ? if residual stool in colon from prior to take down S: Small stool - can still feel pressure in rectum Plan: 04/08/17 08:08 Objective: Vital Signs Temp Pulse Resp BP Pulse Ox 37.2 C 78 16 114/69 95 04/08/17 07:22 04/08/17 07:22 04/08/17 07:22 04/08/17 07:22 04/08/17 07:22 04/07/17 04/08/17 04/09/17 05:59 05:59 05:59 Intake Total 300 Balance 300 PT 14.6 SEC (12.0-15.0) 04/06/17 16:45 INR 1.15 (0.83-1.16) 04/06/17 16:45 Physical Exam - Physical Exam General Appearance: WD/WN, alert, no apparent distress EENT: PERRL/EOMI, normal ENT inspection, pharynx normal, No scleral icterus (R) , No scleral icterus (L) Neck: non-tender, full range of motion Respiratory: chest non-tender, lungs clear Cardiac/Chest: normal peripheral pulses, regular rate, rhythm Abdomen: normal bowel sounds, non-tender, soft, other (ostomy take down site changed with miguel and hydrofera blue) Skin: normal color, warm/dry Extremities: normal range of motion, non-tender Neuro/Psych: no motor/sensory deficits, alert ICD10 Worksheet Patient Problems: Problems Problem Status Onset Abdominal pain Acute Constipation Acute Abdominal pain Acute Abdominal pain, chronic, right lower quadrant Acute Acute Crohn's disease Acute Altered mental status Acute Bronchitis Acute Crohns disease Acute Crohns disease of small intestine Acute Intra-abdominal abscess Acute Malnutrition Acute Severe sepsis Acute Vomiting Acute
--- NOTE | 2017-04-08 12:26 | SOAPPROG ---
SOAP Progress Note Assessment/Plan: Assessment: HD # 3 for fecal impactation following ostomy takedown starting to have bowel movements although hard stool is not all evacuated regular diet S: More BM overnight - can still feel pressure in rectum Plan: 04/08/17 08:08 04/08/17 12:25 Objective: Vital Signs Temp Pulse Resp BP Pulse Ox 36.9 C 76 18 85/53 L 92 04/08/17 11:29 04/08/17 11:29 04/08/17 11:29 04/08/17 11:29 04/08/17 11:29 04/07/17 04/08/17 04/09/17 05:59 05:59 05:59 Intake Total 300 Balance 300 PT 14.6 SEC (12.0-15.0) 04/06/17 16:45 INR 1.15 (0.83-1.16) 04/06/17 16:45 Physical Exam - Physical Exam General Appearance: WD/WN, alert, no apparent distress EENT: PERRL/EOMI, normal ENT inspection, No scleral icterus (R), No scleral icterus (L) Respiratory: chest non-tender, lungs clear, normal breath sounds Cardiac/Chest: regular rate, rhythm, No edema Abdomen: normal bowel sounds, non-tender, soft Skin: normal color, warm/dry Extremities: normal range of motion Neuro/Psych: other (dizzy) ICD10 Worksheet Patient Problems: Problems Problem Status Onset Abdominal pain Acute Constipation Acute Abdominal pain Acute Abdominal pain, chronic, right lower quadrant Acute Acute Crohn's disease Acute Altered mental status Acute Bronchitis Acute Crohns disease Acute Crohns disease of small intestine Acute Intra-abdominal abscess Acute Malnutrition Acute Severe sepsis Acute Vomiting Acute
[2017-04-08] MEDS: MAGNESIUM HYDROXIDE 30 ML UDCUP PO PRN (13:01)
[2017-04-08 13:17] LABS: % IMMATURE GRANULYOCYTES 0.2 % (0.0-1.1); ABSOLUTE IMMATURE GRANULOCYTES 0.01 10^3/uL (0.00-0.10); ADD DIFF? NO; ADD MORPH? NO; ADD SCAN? NO; ATYPICAL LYMPHOCYTE FLAG 0 (0-99); FRAGMENT RBC FLAG 20 (0-99); HEMATOCRIT 32.6 % (38.0-47.0); HEMOGLOBIN 10.4 g/dL (12.6-16.3); LEFT SHIFT FLG 0 (0-99); LIPEMIA HEMOLYSIS FLAG 80 (0-99); MEAN CELL HEMOGLOBIN 26.9 pg (27.9-34.1); MEAN CELL HEMOGLOBIN CONCENTR. 31.9 g/dL (32.4-36.7); MEAN CELL VOLUME 84.2 fL (81.5-99.8); MEAN PLATELET VOLUME 10.2 fL (8.7-11.7); PLATELET CLUMPS FLAG 0 (0-99); PLATELET COUNT 401 10^3/uL (150-400); RED BLOOD CELL COUNT 3.87 10^6/uL (4.18-5.33); RED CELL DISTRIBUTION WIDTH 18.7 % (11.5-15.2)
[2017-04-08 14:56] LABS: ANION GAP 12 mEq/L (8-16); CALCIUM 9.4 mg/dL (8.5-10.4); CARBON DIOXIDE 25 mEq/l (22-31); CHLORIDE 103 mEq/L (97-110); GLOMERULAR FILTRATION RATE 55; GLUCOSE 138 mg/dL (70-100); MAGNESIUM 2.2 mg/dL (1.6-2.3); POTASSIUM 3.3 mEq/L (3.5-5.2); SODIUM 140 mEq/L (134-144)
[2017-04-08] MEDS ORDERED: POTASSIUM CL 20 MEQ TAB PO ONE (16:55)
[2017-04-08] MEDS: LACTULOSE 20 GM/30 ML UDCUP PO PRN (17:12)
[2017-04-08] MEDS: ACETAMN/DIPHENHYDRAMINE 500/25MG TAB PO SCH (20:59)
[2017-04-09] MEDS ORDERED: MIDAZOLAM 2 MG/2 ML VIAL ONE (07:50)
[2017-04-09] MEDS ORDERED: MIDAZOLAM 2 MG/2 ML VIAL IVP ONE (07:50)
--- NOTE | 2017-04-09 07:50 | PDANEPAE ---
ANE Past Medical History - Cardiovascular History Hx Hypertension: No Hx Arrhythmias: No Hx Chest Pain: No Hx Coronary Artery / Peripheral Vascular Disease: No Hx CHF / Valvular Disease: No Hx Palpitations: No - Pulmonary History Hx COPD: No Hx Asthma/Reactive Airway Disease: No Hx Recent Upper Respiratory Infection: No Hx Oxygen in Use at Home: No Hx Sleep Apnea: No Sleep Apnea Screening Result - Last Documented: Negative Pulmonary History Comment: quit smoking 2 cigs/day 03-28-17. "fluid in lungs- September while in ICU for sepsis" - Neurologic History Hx Cerebrovascular Accident: No Hx Seizures: No Hx Dementia: No - Endocrine History Hx Diabetes: No - Renal History Hx Renal Disorders: No - Liver History Hx Hepatic Disorders: No - Neurological & Psychiatric Hx Hx Neurological and Psychiatric Disorders: Yes Neurological / Psychiatric History Comment: ANXIETY, depression. scoliosis- back and neck pain. - Cancer History Hx Cancer: No - Congenital Disorder History Hx Congenital Disorders: No - GI History GERD: no Hx Gastrointestinal Disorders: Yes Gastrointestinal History Comment: CROHNS DIS. "ulcers found in upper and lower bowel", VIOLENT VOMITTING after feeding tube removed. No vomitting now. - Other Health History Other Health History: NEG - Chronic Pain History Chronic Pain: Yes (back,neck.) - Surgical History Prior Surgeries: BOWEL RESECTION. TUBAL LIGATION. CERVICAL SURG. BACK SURG FOR GROWTH ANE Review of Systems Review of Systems: ANE Patient History - Allergies Allergies/Adverse Reactions: fentanyl [Fentanyl] Allergy (Severe, Verified 12/14/16 19:19) WEIGHT LOSS, MEMORY LOSS Penicillins Allergy (Severe, Verified 04/06/17 21:46) SEIZURES Sulfa (Sulfonamide Antibiotics) Allergy (Severe, Verified 04/06/17 21:46) NAUSEA azathioprine Allergy (Unknown, Unverified 04/06/17 21:46) Rash budesonide Allergy (Unknown, Unverified 04/06/17 21:46) Rash gabapentin Allergy (Unknown, Unverified 04/06/17 21:46) Rash infliximab Allergy (Unknown, Unverified 04/06/17 21:46) Itching mesalamine Allergy (Unknown, Unverified 04/06/17 21:46) Rash morphine Allergy (Unknown, Verified 04/06/17 21:46) PT BECOMES "MEAN" tramadol [Tramadol] Allergy (Unknown, Verified 04/06/17 21:46) azathioprine sodium [From Imuran] Allergy (Verified 04/06/17 21:46) Rash cefuroxime [From Ceftin] Allergy (Verified 04/06/17 21:46) Other-Enter Comments ertapenem [From Invanz] Allergy (Verified 04/06/17 21:46) Other-Enter Comments azathioprine sodium Allergy (Unknown, Uncoded 04/06/17 21:46) Rash - Home Medications Home Medications: Dicyclomine [Bentyl 10 MG (*)] 10 mg PO BID 12/06/16 [Last Taken 04/06/17 09:00] FLUoxetine [Prozac 20 MG (*)] 60 mg PO DAILY 12/06/16 [Last Taken 04/06/17] LORazepam [Ativan (*)] 0.5 mg PO BID 12/06/16 [Last Taken 04/06/17 22:00] Multivitamins [Multivitamin (*)] 1 each PO DAILY 12/06/16 [Last Taken 04/06/17] Acetamn/Diphenhydramine 500/25 [Tylenol PM (*)] 2 each PO HS 03/28/17 [Last Taken 04/05/17] Pregabalin [Lyrica 50mg (*)] 100 mg PO TID 03/28/17 [Last Taken 04/06/17 12:00] oxyCODONE IR [Oxycodone Ir (*)] 5 mg PO BID@14,21 03/28/17 [Last Taken 04/06/17 14:00] oxyCODONE IR [Oxycodone Ir (*)] 10 mg PO DAILY 03/28/17 [Last Taken 04/06/17] - NPO status NPO Since - Liquids (Date): 04/09/17 NPO Since - Liquids (Time): 00:00 NPO Since - Solids (Date): 04/09/17 NPO Since - Solids (Time): 00:00 - Smoking Hx Smoking Status: Current some day smoker - Family Anes Hx Family Hx Anesthesia Complications: NEG ANE Labs/Vital Signs - Labs Result Diagrams: 04/08/17 13:10 04/08/17 13:10 - Vital Signs Blood Pressure: 103/61 Heart Rate: 68 Respiratory Rate: 16 O2 Sat (%): 90 Height: 157.48 cm Weight: 39.916 kg ANE Physical Exam - Airway Neck exam: FROM Mallampati Score: Class 1 Mouth exam: normal dental/mouth exam - Pulmonary Pulmonary: no respiratory distress - Cardiovascular Cardiovascular: regular rate and rhythym - ASA Status ASA Status: II
[2017-04-09] MEDS ORDERED: LIDOCAINE 2% 5 ML SDV ONE (07:55)
[2017-04-09] MEDS ORDERED: PROPOFOL 200 MG/20 ML VIAL ONE ×2 (07:55→08:15)
[2017-04-09] MEDS ORDERED: ONDANSETRON 4 MG/2 ML VIAL IVP PRN (08:18)
[2017-04-09] MEDS ORDERED: NALOXONE HCL 0.4 MG/ML INJ IVP PRN (08:18)
[2017-04-09] MEDS ORDERED: OXYCODONE/APAP 5/325 TAB PO PRN (08:18)
[2017-04-09] MEDS ORDERED: LR 500 ML IV PRN (08:18)
[2017-04-09] MEDS ORDERED: PHENYLEPHRINE HCL 100 MCG/ML SYR ONE (08:21)
[2017-04-09] MEDS ORDERED: MAGNESIUM CITRATE 300 ML BOTTLE PO ONE ×2 (08:27→16:30)
--- NOTE | 2017-04-09 08:29 | POSTOPPROG ---
Post Op Note Date of Operation: 04/09/17 Surgeon: Kassy Yee Anesthesiologist: carlie Anesthesia: GET(General Endotracheal) Pre-op Diagnosis: fecal impactation Post-op Diagnosis: same Indication: 71 yo with fecal impactation Procedure: eua with evacuation of stool and rigid sig Findings: sticky stool Inf/Abcess present in the surg proc area at time of surgery?: No Specimen(s): none
--- NOTE | 2017-04-09 09:40 | GOP ---
[f rep st] OPERATIVE REPORT DATE OF OPERATION: 04/09/2017 SURGEON: Kassy Yee MD ANESTHESIA: General. ANESTHESIOLOGIST: Praful Jefferson MD PREOPERATIVE DIAGNOSIS: Fecal impaction. POSTOPERATIVE DIAGNOSIS: Fecal impaction. PROCEDURE PERFORMED: Exam under anesthesia with evacuation of stool and rigid sigmoidoscopy. FINDINGS: A lot of sticky stool mixed with formed stool. SPECIMENS: None. ESTIMATED BLOOD LOSS: None. INDICATIONS: The patient is a 71-year-old woman who underwent ostomy takedown. She became impacted. She has been trying enemas. She requested manual disimpaction. DESCRIPTION OF PROCEDURE: Patient was brought into the operating room, placed supine on the table, a nd monitored anesthesia care with IV sedation was performed. She was placed in lithotomy position. I performed exam under anesthesia. I grasped lot of sticky stool mixed with hard stool balls and ayo cuated this. I then irrigated her rectum with 200 cc of saline. I then performed a rigid sigmoidosc opy and did not see any additional areas of concern up to 20 cm. I pulled the scope back slowly and irrigated additionally. She was awakened in the operating room and transferred to PACU in stable con dition. /[id number]/MODL
[2017-04-09] MEDS: FLUoxetine 20 MG CAP PO SCH (09:53)
[2017-04-09] MEDS: PREGABALIN 50 MG CAP PO SCH ×3 (09:53→21:25)
[2017-04-09] MEDS: SENNOSIDES/DOCUSATE SODIUM TAB PO SCH ×2 (09:53→21:26)
[2017-04-09] MEDS: LORazepam 0.5 MG TAB PO SCH ×2 (09:54→21:24)
[2017-04-09] MEDS: oxyCODONE IR 5 MG TAB PO SCH ×3 (09:54→21:24)
[2017-04-09] MEDS: DICYCLOMINE 10 MG CAP PO SCH ×2 (09:54→21:25)
[2017-04-09] MEDS: ACETAMN/DIPHENHYDRAMINE 500/25MG TAB PO SCH (21:24)
[2017-04-10 08:01] VITALS: BP 102/59; PULSE 75; RESP 14; TEMP 98.9; O2SAT 91
[2017-04-10] MEDS: PREGABALIN 50 MG CAP PO SCH (08:17)
[2017-04-10] MEDS: FLUoxetine 20 MG CAP PO SCH (08:17)
[2017-04-10] MEDS: oxyCODONE IR 5 MG TAB PO SCH (08:17)
[2017-04-10] MEDS: LORazepam 0.5 MG TAB PO SCH (08:18)
[2017-04-10] MEDS: DICYCLOMINE 10 MG CAP PO SCH (08:18)
[2017-04-10] MEDS: SENNOSIDES/DOCUSATE SODIUM TAB PO SCH (08:18)
--- NOTE | 2017-04-10 08:22 | SOAPPROG ---
SOAP Progress Note Assessment/Plan: Assessment: HD # 5 for fecal impactation following ostomy takedown POD # 1 s/p EUA with evacuation of stool and rigid sig. BM clear now Ready for DC Tolerating diet S: Feels much improved Plan: 04/08/17 08:08 04/08/17 12:25 04/10/17 08:21 Objective: Vital Signs Temp Pulse Resp BP Pulse Ox 37.2 C 75 14 102/59 L 91 L 04/10/17 08:00 04/10/17 08:00 04/10/17 08:00 04/10/17 08:00 04/10/17 08:00 Laboratory Results 04/08/17 13:10 04/08/17 13:10 04/09/17 04/10/17 04/11/17 05:59 05:59 05:59 Intake Total 550 2300 Output Total 1200 Balance 550 1100 PT 14.6 SEC (12.0-15.0) 04/06/17 16:45 INR 1.15 (0.83-1.16) 04/06/17 16:45 Physical Exam - Physical Exam General Appearance: WD/WN, alert, no apparent distress EENT: PERRL/EOMI, normal ENT inspection, No scleral icterus (R), No scleral icterus (L) Respiratory: lungs clear, normal breath sounds Cardiac/Chest: regular rate, rhythm Abdomen: normal bowel sounds, non-tender, soft, other (ostomy take down cdi. Repacked with miguel and HFP ready) Skin: normal color, warm/dry Extremities: normal range of motion, non-tender Neuro/Psych: no motor/sensory deficits, alert, normal mood/affect ICD10 Worksheet Patient Problems: Problems Problem Status Onset Abdominal pain Acute Constipation Acute Abdominal pain Acute Abdominal pain, chronic, right lower quadrant Acute Acute Crohn's disease Acute Altered mental status Acute Bronchitis Acute Crohns disease Acute Crohns disease of small intestine Acute Intra-abdominal abscess Acute Malnutrition Acute Severe sepsis Acute Vomiting Acute
--- NOTE | 2017-04-10 13:45 | ASMTCMCOM ---
CM Note CM Note Notes: Pt is being discharged today. CM scheduled a ride through [employer]. [place] missed the pickers material handlers time for scheduled pickers material handlers. Pt was waiting 40+ mins. Pt is unable to have friends or family pick her up. CM provided taxi voucher to get home. CM available for changes. Date Signed: 04/10/2017 01:45 PM Electronically Signed By:YULI Cruz
--- NOTE | 2017-04-10 13:46 | ASDISCHSUM ---
Discharge Information Plan Status:Home with No Needs Medically Cleared to Leave:04/10/2017 Discharge Date:04/10/2017 10:54 AM CM D/C Disposition: ADT D/C Disposition:Home, Routine, Self-Care Projected Discharge Date:04/10/2017 12:00 AM Transportation at D/C: Discharge Delay Reason: Follow-Up Date:04/10/2017 12:00 AM Discharge Slot: Final Diagnosis: Placement Information Patient Contact Information Contact Name:KANDICE Relationship:Life Partner Address:[address] Work Phone: City:[place] Alternate Phone: [facility]/Zip Code:[place] [address] Email: Financial Information Financial Class: Primary Plan Desc:MEDICARE OUTPATIENT Primary Plan Number:[id number] Secondary Plan Desc:MEDICA[place] Secondary Plan Number:[id number] Assessment Information [facility] Progress Note CM Note CM Note Notes: Spoke w/RN, anticipate will dc home w/support of when medically stable. CM available for any changes. Date Signed: 04/07/2017 11:06 AM Electronically Signed By:Martha Santacruz RN [facility] CM Progress Note CM Note CM Note Notes: Pt is being discharged today. CM scheduled a ride through [employer]. 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 Pt was waiting 40+ mins. Pt is unable to have friends or family pick her up. CM provided taxi voucher to get home. CM available for changes. Date Signed: 04/10/2017 01:45 PM Electronically Signed By:YULI Cruz Intervention Information Intervention Type:*MANJARREZ-Signed Date of Service:04/08/2017 10:53 AM Patient Type:Observation Staff Member:Miriam Ronquillo Hours: Discipline: Severity: Comment:
--- NOTE | 2017-04-11 13:13 | GDS ---
[f rep st] DISCHARGE SUMMARY ADMITTING DIAGNOSIS: Fecal impaction. SECONDARY DIAGNOSES: 1. Crohn disease. 2. Chronic pain. 3. Depression. 4. Vitamin D deficiency. REASON FOR ADMISSION: The patient is a 71-year-old woman who recently underwent ileostomy takedown. She had return of bowel function and was discharged home; however, she developed worsening rectal pa in, constipation and discomfort with bowel movements. She presented to the emergency room and was fo und to have fecal impaction. She was admitted at this time for pain control, observation and cathars is. 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 She un derwent a soapsuds enema without much relief. A Fleet enema was then performed with minimal relief. She was then given a mineral enema. She did report some relief from this. She had a suppository pl aced. Through her admission, she did have return of bowel function and passed several bowel movement s; however, she was still extremely uncomfortable. On 04/09/2017, she was taken to the operating lenora m by Dr. Yee for exam under anesthesia with evacuation of stool and rigid sigmoidoscopy. On postop erative day #1, she was feeling much better. She was tolerating a regular diet and she was ready for discharge. CONDITION: Being discharged home in stable condition. Pain is well controlled, tolerating regular d iet, ambulating independently. DISCHARGE MEDICATIONS: She was sent home with bowel protocol instructions and instructed to resume h ome medications. See EMR for further detail. DISCHARGE INSTRUCTIONS AND FOLLOWUP: She will continue to follow her lifting restrictions from her p rior surgery, including no heavy lifting, pushing or pulling greater than 20 pounds for 4 more weeks. Diet as tolerated. She will follow up with Dr. Yee in 1 week. She may shower. Call with any wo rsening symptoms, questions, or concerns. /[id number]/MODL
== END 2017-04-10 10:54 | disposition home or self-care (01) | DRG 389 ==
LOC: EDUNIT# → F3E 23:10 → OBSVTOIN 04-08 12:53
PROVIDERS: ADMIT Surgery; ATTEND Surgery
PROC: 0DCN8ZZ Extirpation of Matter from Sigmoid Colon, Via Natural or Artificial Opening Endoscopic (ICD-10-PCS; principal; 2017-04-09 08:00)
DX: K56.41 Fecal impaction (principal); K50.918 Crohn's disease, unspecified, with other complication; I82.890 Acute embolism and thrombosis of other specified veins; G89.29 Other chronic pain; F32.9 Major depressive disorder, single episode, unspecified; E55.9 Vitamin D deficiency, unspecified; Z87.891 Personal history of nicotine dependence
CPT/HCPCS: 96374; G0378; J2250; J2370; J2704; Q9967

== ENCOUNTER 2017-05-17 18:14 | Inpatient (IN) | payer OTHER, MEDICAID ==
[2017-05-17 19:08] LABS: % IMMATURE GRANULYOCYTES 0.3 % (0.0-1.1); ABSOLUTE IMMATURE GRANULOCYTES 0.04 10^3/uL (0.00-0.10); ADD DIFF? NO; ADD MORPH? NO; ADD SCAN? NO; ATYPICAL LYMPHOCYTE FLAG 0 (0-99); FRAGMENT RBC FLAG 10 (0-99); HEMATOCRIT 26.4 % (38.0-47.0); HEMOGLOBIN 8.5 g/dL (12.6-16.3); LEFT SHIFT FLG 0 (0-99); LIPEMIA HEMOLYSIS FLAG 80 (0-99); MEAN CELL HEMOGLOBIN CONCENTR. 32.2 g/dL (32.4-36.7); MEAN CELL VOLUME 83.8 fL (81.5-99.8); MEAN PLATELET VOLUME 10.4 fL (8.7-11.7); PLATELET CLUMPS FLAG 0 (0-99); PLATELET COUNT 425 10^3/uL (150-400); RED BLOOD CELL COUNT 3.15 10^6/uL (4.18-5.33); RED CELL DISTRIBUTION WIDTH 15.7 % (11.5-15.2)
[2017-05-17 19:18] LABS: ANION GAP 13 mEq/L (8-16); CALCIUM 9.3 mg/dL (8.5-10.4); CARBON DIOXIDE 23 mEq/l (22-31); CHLORIDE 101 mEq/L (97-110); CREATININE 0.9 mg/dL (0.6-1.0); GLOMERULAR FILTRATION RATE > 60; GLUCOSE 77 mg/dL (70-100); SODIUM 137 mEq/L (134-144)
[2017-05-17] MEDS ORDERED: IOPAMIDOL (ISOVUE-300) 100 ML BTL ONE (19:41)
[2017-05-17 19:43] LABS: COLOR YELLOW; LEUKOCYTE ESTERASE,URINE TRACE (NEGATIVE); NITRITE,URINE NEGATIVE (NEGATIVE)
[2017-05-17 19:49] LABS: RBC,URINE NONE SEEN /hpf (0-3)
[2017-05-17] MEDS ORDERED: VANCOMYCIN HCL/NORMAL SALINE 250 ML IV ONE (21:18)
[2017-05-17] MEDS ORDERED: LORazepam 2 MG/ML INJ ONE (22:03)
[2017-05-17] MEDS ORDERED: LORazepam 2 MG/ML INJ IVP ONE (22:05)
[2017-05-17] MEDS ORDERED: oxyCODONE IR 5 MG TAB PO PRN (22:46)
[2017-05-17] MEDS ORDERED: ACETAMINOPHEN 325 MG TAB PO PRN (22:46)
[2017-05-17] MEDS ORDERED: ONDANSETRON DISINTEGRATING 4 MG TAB PO PRN (22:46)
[2017-05-17] MEDS ORDERED: ONDANSETRON 4 MG/2 ML VIAL IVP PRN ×2 (22:46→23:39)
[2017-05-17] MEDS ORDERED: NS 1,000 ML IV SCH (23:00)
[2017-05-17] MEDS ORDERED: VANCOMYCIN 1 GM in D5W 250 ML IV ONE (23:30)
--- NOTE | 2017-05-17 23:34 | EDPHY ---
H & P Smoking Status: Current some day smoker Time Seen by Provider: 05/17/17 18:36 HPI/ROS: CHIEF COMPLAINT: Abdominal pain HISTORY OF PRESENT ILLNESS: 71-year-old female presents to the emergency department complaining of abdominal pain and distension over last few days. The patient has a history of Crohn's disease and had a resection. She had her ostomy closed [address] Kassy Yee. She states that she has been doing well until most recently she developed increased pain, swelling, and a fever today. No back pain. No urinary symptoms. No chest pain or difficulty breathing. She states that she did not sleep at all last night because of the pain in her abdomen. REVIEW OF SYSTEMS: Constitutional: Fever. No chills. Eyes: No double or blurry vision. ENT: No sore throat. Respiratory: No cough, no shortness of breath. Cardiac: No chest pain. Gastrointestinal: Abdominal pain as above. No vomiting or diarrhea. Normal bowel movement yesterday. Genitourinary: No dysuria. Musculoskeletal: No neck or back pain. Skin: No rashes. Neurological: No headache. (Ann Beltran) Past Medical/Surgical History: Crohn's disease, breast augmentation, chronic back pain, bowel resection (Ann Beltran) Social History: Single (Ann Beltran) Physical Exam: General Appearance: Alert, no distress. 38.6. Nontoxic appearing. Eyes: Pupils equal and round. Extraocular motions are all intact. ENT: Mouth: Mucous membranes moist. Respiratory: No wheezing, rhonchi, or rales, lungs are clear to auscultation. Cardiovascular: Regular rate and rhythm. Gastrointestinal: Abdomen reveals well-healed surgical incisions that are midline. She has swelling to the lower mid abdomen especially to the left of midline that is also erythematous and warm and diffusely tender to palpate. No palpable fluctuance noted. Very tender to palpate. It does appear quite swollen in her lower abdomen especially on the left side. No rebound tenderness. Neurological: Alert and oriented x 3, cranial nerves II through XII grossly intact Skin: Warm and dry, no rashes. Musculoskeletal: Nontender to palpate along the cervical, thoracic or lumbar spine. Neck is supple. Extremities: Full range of motion and no peripheral edema. Psychiatric: Patient is oriented X 3, there is no agitation. (Ann Beltran) Constitutional: Initial Vital Signs Temperature (C) 38.6 C H 05/17/17 18:23 Heart Rate 95 05/17/17 18:23 Respiratory Rate 17 05/17/17 18:23 Blood Pressure 112/78 05/17/17 18:23 O2 Sat (%) 95 05/17/17 18:23 O2 Delivery Mode Room Air Allergies/Adverse Reactions: fentanyl [Fentanyl] Allergy (Severe, Verified 12/14/16 19:19) WEIGHT LOSS, MEMORY LOSS Penicillins Allergy (Severe, Verified 04/06/17 21:46) SEIZURES Sulfa (Sulfonamide Antibiotics) Allergy (Severe, Verified 04/06/17 21:46) NAUSEA azathioprine Allergy (Unknown, Unverified 04/06/17 21:46) Rash budesonide Allergy (Unknown, Unverified 04/06/17 21:46) Rash gabapentin Allergy (Unknown, Unverified 04/06/17 21:46) Rash infliximab Allergy (Unknown, Unverified 04/06/17 21:46) Itching mesalamine Allergy (Unknown, Unverified 04/06/17 21:46) Rash morphine Allergy (Unknown, Verified 04/06/17 21:46) PT BECOMES "MEAN" tramadol [Tramadol] Allergy (Unknown, Verified 04/06/17 21:46) azathioprine sodium [From Imuran] Allergy (Verified 04/06/17 21:46) Rash cefuroxime [From Ceftin] Allergy (Verified 04/06/17 21:46) Other-Enter Comments ertapenem [From Invanz] Allergy (Verified 04/06/17 21:46) Other-Enter Comments azathioprine sodium Allergy (Unknown, Uncoded 04/06/17 21:46) Rash Home Medications: Medication Instructions Recorded Dicyclomine [Bentyl 10 MG (*)] 10 mg PO BID 12/06/16 FLUoxetine [Prozac 20 MG (*)] 60 mg PO DAILY 12/06/16 LORazepam [Ativan (*)] 0.5 mg PO BID 12/06/16 Acetamn/Diphenhydramine 500/25 2 each PO HS 03/28/17 [Tylenol PM (*)] Pregabalin [Lyrica 50mg (*)] 100 mg PO BID 03/28/17 oxyCODONE IR [Oxycodone Ir (*)] 5 mg PO TID 03/28/17 Medical Decision Making - Diagnostics Imaging: Discussed imaging studies w/ house calls nurse Radiologist ED Course/Re-evaluation: 71-year-old female presents to the emergency department with abdominal pain and distension. I was concerned about possible postoperative infection. Venous lactate was 0.9. Patient does have a fever although she is not hypotensive and not tachycardic. She appears well. Patient does not meet SIRS criteria. White blood cell count is mildly elevated at 11,000 thousand. Her hemoglobin and hematocrit are 8.5 in 26.4%. The case was discussed with Dr. Jorge Medina, secondary supervising physician, who did not directly evaluate the patient but agrees with treatment and plan. He recommended starting the patient on IV Levaquin and IV vancomycin. Patient has numerous medication allergies. Blood cultures have already been obtained. CT imaging of the abdomen and pelvis reveals air-fluid level to the anterior abdominal wall which measures 4 x 2 cm and could represent possible abscess. There is also thickening noted to the anastomosis site and a bowel leak cannot be excluded although this is less likely. This was reported to me by the radiologist. I spoke with Dr. Denis Doan who will come to evaluate the patient and asked that the patient be admitted to the hospitalist. I spoke with Dr. Anna Peres, hospitalist, who agreed to admit this patient to the medical-surgical floor. She recommended adding IV Flagyl as well. Dr. Denis Doan came to evaluate the patient in the emergency department. ( Ann Beltran) Differential Diagnosis: Including but not limited to sepsis, abscess, cellulitis (Ann Beltran) - Data Points Laboratory Results: Laboratory Results 05/17/17 18:48 05/17/17 18:48 Medications Given: Hydromorphone HCl (Dilaudid) 0.2 - 0.4 mg IVP Q4 PRN PRN Reason: Pain, Severe Unable to Take PO Stop: 05/27/17 23:38 Last Admin: 05/18/17 11:16 Dose: 0.4 mg Hydromorphone/Sodium Chloride (Hydromorphone) 0.2 mg IVP Q2HRS PRN PRN Reason: PAIN SEVERE UNABLE TO TAKE PO Stop: 05/28/17 10:29 Last Admin: 05/18/17 10:20 Dose: 0.2 mg Metronidazole/Sodium Chloride (Flagyl 500 Mg (Premix)) 100 mls @ 100 mls/hr IV Q8HRS ROLANDO PRN Reason: Protocol Stop: 06/17/17 05:59 Last Admin: 05/18/17 14:50 Dose: 100 mls Potassium Chloride/Dextrose/Sod Cl (D5w 1/2 Ns W/ 20 Kcl/L) 1,000 mls @ 125 mls /hr IV CONT ROLANDO Stop: 11/13/17 23:44 Last Admin: 05/18/17 06:39 Dose: 1,000 mls Ferric Sodium Gluconate Complex 125 mg/ Sodium Chloride 110 mls @ 110 mls/hr IV DAILY ROLANDO Stop: 11/14/17 09:59 Last Admin: 05/18/17 13:09 Dose: 110 mls Oxycodone/Acetaminophen (Percocet 5/325) 1 - 2 tab PO Q4 PRN PRN Reason: Pain, Severe Able to Take PO Stop: 05/27/17 23:38 Last Admin: 05/18/17 07:16 Dose: 2 tab Discontinued Medications Levofloxacin/Dextrose (Levaquin 750 Mg (Premix)) 150 mls @ 100 mls/hr IV EDNOW ONE PRN Reason: Protocol Stop: 05/17/17 22:47 Last Admin: 05/17/17 21:51 Dose: 150 mls Metronidazole/Sodium Chloride (Flagyl 500 Mg (Premix)) 100 mls @ 100 mls/hr IV EDNOW ONE PRN Reason: Protocol Stop: 05/17/17 22:40 Last Admin: 05/17/17 23:26 Dose: 100 mls Vancomycin HCl 1 gm/ Dextrose 250 mls @ 250 mls/hr IV ONCE ONE Stop: 05/18/17 00:29 Last Admin: 05/17/17 23:53 Dose: Not Given Lorazepam (Ativan Injection) 0.25 mg IVP ONCE ONE Stop: 05/17/17 22:06 Last Admin: 05/17/17 22:07 Dose: 0.25 mg Midazolam HCl (Versed) 0 mg IVP ONCALL PRN PRN Reason: Per provider during procedure Stop: 05/18/17 11:11 Last Admin: 05/18/17 11:17 Dose: 3 mg Departure - Departure Disposition: [facility] Acute Clinical Impression: Abdominal pain Qualifiers: Abdominal location: generalized Qualified Code(s): R10.84 - Generalized abdominal pain Fever Qualifiers: Fever type: unspecified Qualified Code(s): R50.9 - Fever, unspecified Postoperative infection Qualifiers: Encounter type: initial encounter Qualified Code(s): T81.4XXA - Infection following a procedure, initial encounter Condition: Good
[2017-05-17] MEDS ORDERED: OXYCODONE/APAP 5/325 TAB PO PRN (23:39)
[2017-05-17] MEDS ORDERED: HYDROmorphONE/DILAUDID 1 MG/ML INJ IVP PRN (23:39)
[2017-05-17] MEDS ORDERED: D5W 1/2 NS W/ 20 KCl/L 1,000 ML IV SCH (23:45)
--- NOTE | 2017-05-17 23:46 | PDGENHP ---
History & Physical Chief Complaint: ABD PAIN History of Present Illness: 71 FEMALE, 5 WEEKS SP COLOSTOMY CLOSRE BY DR SHIN/ PRESENTS TODAY WITH PAIN, FEVER, NAUSEA AND TENDERNESS OVER PREVIOUS ILEOSTOMY SITE. WBC 11K. Pertinent Past, Social, Family History: PMH CROHNS, 2 SB RESECTIONS AND ABSCESS DRAINAGE. ROS- 10 PT REVIEW IS NEG, SHE DOESNOT SMOKE. ALL: MULTIPLE , SEE LIST. MEDS : SEE LIST. FAM HX: NONCONTRIBUTORY Relevant Physical Exam: HEALTHY FRUSTRATED 71 FEMALE WITH FEVER. HEENT NONICTERIC WITH NO ADENOPATHY. CHESTCLEAR. COR RR. ABD: SOFT, + BS, TENDER FLUCTANT AREA NEAR SURGICAL SITE. EXTREM OK Cardiorespiratory Assessment: IMPR: SUBFASCIAL ABSCESS. PLAN IR OR SURGICAL DRAINAGE IN AM/ RISKS AND OPTIONS FULLY DISCUSSED/ ABX
--- NOTE | 2017-05-18 01:09 | PDGENHP ---
History and Physical - Chief Complaint Abdominal pain - History of Present Illness 71 yo F w/ hx of Chron's disease presents with abdominal pain. Patient had an SBO and partial colectomy earlier this year. She then had a takedown procedure performed in March. She noted over the last few days lower abdominal bloating and pain so she came to the ED for evaluation. In the ED, CT scan notable for likely abscess in the anterior abdomen/pelvis so patient admitted for further management. Patient is fairly asymptomatic at the time of my evaluation. History Information - Allergies/Home Medication List Allergies/Adverse Reactions: fentanyl [Fentanyl] Allergy (Severe, Verified 12/14/16 19:19) WEIGHT LOSS, MEMORY LOSS Penicillins Allergy (Severe, Verified 04/06/17 21:46) SEIZURES Sulfa (Sulfonamide Antibiotics) Allergy (Severe, Verified 04/06/17 21:46) NAUSEA azathioprine Allergy (Unknown, Unverified 04/06/17 21:46) Rash budesonide Allergy (Unknown, Unverified 04/06/17 21:46) Rash gabapentin Allergy (Unknown, Unverified 04/06/17 21:46) Rash infliximab Allergy (Unknown, Unverified 04/06/17 21:46) Itching mesalamine Allergy (Unknown, Unverified 04/06/17 21:46) Rash morphine Allergy (Unknown, Verified 04/06/17 21:46) PT BECOMES "MEAN" tramadol [Tramadol] Allergy (Unknown, Verified 04/06/17 21:46) azathioprine sodium [From Imuran] Allergy (Verified 04/06/17 21:46) Rash cefuroxime [From Ceftin] Allergy (Verified 04/06/17 21:46) Other-Enter Comments ertapenem [From Invanz] Allergy (Verified 04/06/17 21:46) Other-Enter Comments azathioprine sodium Allergy (Unknown, Uncoded 04/06/17 21:46) Rash Home Medications: Dicyclomine [Bentyl 10 MG (*)] 10 mg PO BID 12/06/16 [Last Taken 05/17/17] FLUoxetine [Prozac 20 MG (*)] 60 mg PO DAILY 12/06/16 [Last Taken 05/17/17] LORazepam [Ativan (*)] 0.5 mg PO BID 12/06/16 [Last Taken 04/06/17 22:00] Acetamn/Diphenhydramine 500/25 [Tylenol PM (*)] 2 each PO HS 03/28/17 [Last Taken 05/16/17] Pregabalin [Lyrica 50mg (*)] 100 mg PO BID 03/28/17 [Last Taken 04/06/17 12:00] oxyCODONE IR [Oxycodone Ir (*)] 5 mg PO TID 03/28/17 [Last Taken 05/17/17 12:00] I have personally reviewed and updated: family history, medical history - Past Medical History Crohn's Disease - Surgical History Additional surgical history: Colectemy s/p ostomy and takedown - Family History Positive for: cancer - Social History Smoking Status: Current some day smoker Review of Systems Review of Systems: ROS: 10pt was reviewed & negative except for what was stated in HPI & below Physical Exam Physical Exam: Temp Pulse Resp BP Pulse Ox 37.6 C 100 16 116/67 90 L 05/17/17 23:55 05/17/17 23:55 05/17/17 23:55 05/17/17 23:55 05/17/17 23:55 Constitutional: no apparent distress, not in pain Eyes: PERRL, EOMI Ears, Nose, Mouth, Throat: moist mucous membranes, no oral mucosal ulcers Cardiovascular: regular rate and rhythym, no murmur, rub, or gallop Respiratory: no respiratory distress, clear to auscultation Gastrointestinal: normoactive bowel sounds, tenderness (LLQ and supra-pubic area ), distension, No guarding, No rebound Skin: warm, other (Multiple well-healing abdominal incisions) Musculoskeletal: full muscle strength, no muscle tenderness Neurologic: AAOx3, CN II-XII Intact Psychiatric: interacting appropriately, not anxious Lab Data & Imaging Review 05/17/17 18:48 05/17/17 18:48 WBC 11.64 10^3/uL (3.80-9.50) H 05/17/17 18:48 RBC 3.15 10^6/uL (4.18-5.33) L 05/17/17 18:48 Hgb 8.5 g/dL (12.6-16.3) L 05/17/17 18:48 Hct 26.4 % (38.0-47.0) L 05/17/17 18:48 MCV 83.8 fL (81.5-99.8) 05/17/17 18:48 MCH 27.0 pg (27.9-34.1) L 05/17/17 18:48 MCHC 32.2 g/dL (32.4-36.7) L 05/17/17 18:48 RDW 15.7 % (11.5-15.2) H 05/17/17 18:48 Plt Count 425 10^3/uL (150-400) H 05/17/17 18:48 MPV 10.4 fL (8.7-11.7) 05/17/17 18:48 Neut % (Auto) 71.1 % (39.3-74.2) 05/17/17 18:48 Lymph % (Auto) 18.8 % (15.0-45.0) 05/17/17 18:48 Dixie % (Auto) 8.8 % (4.5-13.0) 05/17/17 18:48 Eos % (Auto) 0.5 % (0.6-7.6) L 05/17/17 18:48 Baso % (Auto) 0.5 % (0.3-1.7) 05/17/17 18:48 Nucleat RBC Rel Count 0.0 % (0.0-0.2) 05/17/17 18:48 Absolute Neuts (auto) 8.27 10^3/uL (1.70-6.50) H 05/17/17 18:48 Absolute Lymphs (auto) 2.19 10^3/uL (1.00-3.00) 05/17/17 18:48 Absolute Monos (auto) 1.02 10^3/uL (0.30-0.80) H 05/17/17 18:48 Absolute Eos (auto) 0.06 10^3/uL (0.03-0.40) 05/17/17 18:48 Absolute Basos (auto) 0.06 10^3/uL (0.02-0.10) 05/17/17 18:48 Absolute Nucleated RBC 0.00 10^3/uL (0-0.01) 05/17/17 18:48 Immature Gran % 0.3 % (0.0-1.1) 05/17/17 18:48 Immature Gran # 0.04 10^3/uL (0.00-0.10) 05/17/17 18:48 VBG Lactic Acid 0.9 mmol/L (0.7-2.1) 05/17/17 18:48 Sodium 137 mEq/L (134-144) 05/17/17 18:48 Potassium 4.0 mEq/L (3.5-5.2) 05/17/17 18:48 Chloride 101 mEq/L (97-110) 05/17/17 18:48 Carbon Dioxide 23 mEq/l (22-31) 05/17/17 18:48 Anion Gap 13 mEq/L (8-16) 05/17/17 18:48 BUN 20 mg/dL (7-23) 05/17/17 18:48 Creatinine 0.9 mg/dL (0.6-1.0) 05/17/17 18:48 Estimated GFR > 60 05/17/17 18:48 Glucose 77 mg/dL (70-100) 05/17/17 18:48 Calcium 9.3 mg/dL (8.5-10.4) 05/17/17 18:48 Urine Color YELLOW 05/17/17 19:25 Urine Appearance CLEAR 05/17/17 19:25 Urine pH 6.0 (5.0-7.5) 05/17/17 19:25 Ur Specific Shorter 1.010 (1.002-1.030) 05/17/17 19:25 Urine Protein NEGATIVE (NEGATIVE) 05/17/17 19:25 Urine Ketones NEGATIVE (NEGATIVE) 05/17/17 19:25 Urine Blood NEGATIVE (NEGATIVE) 05/17/17 19:25 Urine Nitrate NEGATIVE (NEGATIVE) 05/17/17 19:25 Urine Bilirubin NEGATIVE (NEGATIVE) 05/17/17 19:25 Urine Urobilinogen NEGATIVE EU (0.2-1.0) 05/17/17 19:25 Ur Leukocyte Esterase TRACE (NEGATIVE) H 05/17/17 19:25 Urine RBC NONE SEEN /hpf (0-3) 05/17/17 19:25 Urine WBC 1-3 /hpf (0-3) 05/17/17 19:25 Ur Epithelial Cells TRACE /lpf (NONE-1+) 05/17/17 19:25 Urine Glucose NEGATIVE (NEGATIVE) 05/17/17 19:25 Imaging Review: CT A/P with fluid collection in anterior abdomen/pelvis. Assessment & Plan Assessment: 71 yo F w/ Chron's presents with abdominal pain and intra-abdominal abscess. Plan: 1. Intra-abdominal abscess - Unclear if related to recent surgery or Chron's disease. I suspect the former noting that patient has been symptom free from a Chron's standpoint for some time. Febrile in ED with WBC of 11. - Surgery service consulted, appreciate assistance - Noting multiple antibiotic allergies (Penicillin, carbapenem) will proceed with levofloxacin and Flagyl IV - Maintain NPO noting likely need for surgical vs. IR drainage 2. Chron's disease - Patient denies recent symptoms including diarrhea, blood in stool, or abdominal pain (aside from day of admission) - Acute management as above 3. Normocytic anemia - Chronic but worsened from prior values on this admission. Patient denies any blood in stool or melena. - Will send iron panel, ferritin, B12 Diet - NPO Code - Full Ppx - SCDs Dispo - Admit to inpatient status noting need for IV antibiotics and abscess drainage
--- NOTE | 2017-05-18 01:49 | PDMN ---
Medical Necessity Medical necessity: C/M review: est. > 2 MN LOS for eval and TX of acute intra- abdominal abscess, abdominal pain, requiring planned 05/18/2017 surgical versus IR abscess drainage, ongoing IV Levaquin, IV Flagyl, NPO, IV fluids, comorbid Chron's disease, normocytic anemia, current everyday tobacco smoker, hx SBO and partial colectomy earlier 2016and takedown procedure 03/2017 per Hospitalist H/ P.
[2017-05-18 04:46] LABS: % IMMATURE GRANULYOCYTES 0.3 % (0.0-1.1); ABSOLUTE IMMATURE GRANULOCYTES 0.03 10^3/uL (0.00-0.10); ADD DIFF? NO; ADD MORPH? NO; ADD SCAN? NO; ATYPICAL LYMPHOCYTE FLAG 0 (0-99); FRAGMENT RBC FLAG 0 (0-99); HEMATOCRIT 28.4 % (38.0-47.0); HEMOGLOBIN 9.1 g/dL (12.6-16.3); LEFT SHIFT FLG 0 (0-99); LIPEMIA HEMOLYSIS FLAG 80 (0-99); MEAN CELL VOLUME 84.3 fL (81.5-99.8); MEAN PLATELET VOLUME 9.9 fL (8.7-11.7); PLATELET CLUMPS FLAG 0 (0-99); PLATELET COUNT 390 10^3/uL (150-400); RED BLOOD CELL COUNT 3.37 10^6/uL (4.18-5.33); RED CELL DISTRIBUTION WIDTH 15.5 % (11.5-15.2)
[2017-05-18 05:01] LABS: ANION GAP 11 mEq/L (8-16); CALCIUM 9.2 mg/dL (8.5-10.4); CARBON DIOXIDE 24 mEq/l (22-31); CHLORIDE 108 mEq/L (97-110); CREATININE 0.8 mg/dL (0.6-1.0); GLOMERULAR FILTRATION RATE > 60; GLUCOSE 88 mg/dL (70-100); POTASSIUM 4.2 mEq/L (3.5-5.2); SODIUM 143 mEq/L (134-144)
[2017-05-18 05:10] LABS: % SATURATION 5 % (20-55); TOTAL IRON BINDING CAPACITY 352 ug/dL (260-490)
[2017-05-18 05:37] LABS: FERRITIN - BCH 25.5 ng/mL (6.2-264.0)
--- NOTE | 2017-05-18 09:07 | SOAPPROG ---
SOAP Progress Note Assessment/Plan: Assessment: 71 yo female with hx of Crohns disease s/p small bowel resections and recent ostomy closure 5 weeks ago presented to the emergency department with abdominal pain, distention, and fever. Pt had an abdominal CT done, which showed a fluid collection just inferior to the umbilicus, consistent with abscess, and bowel wall thickening. Today, pt reports mild improvement of distention but still with abdominal pain. Plan: Continue IV antibiotics- appreciate hospitalist Proceed with IR drainage of abdominal wall abscess- appreciate IR 05/18/17 09:05 Subjective: Pt reports persistent pain and nausea. Reports mild improvement of abdominal distention, but states this is still present. Improvement of fever, currently receiving IV levaquin and flagyl. Objective: Vital Signs Temp Pulse Resp BP Pulse Ox 36.8 C 77 18 94/56 L 96 05/18/17 07:35 05/18/17 07:35 05/18/17 07:35 05/18/17 07:35 05/18/17 07:35 Laboratory Results 05/18/17 04:35 05/18/17 04:35 05/17/17 05/18/17 05/19/17 05:59 05:59 05:59 Output Total 450 Balance -450 ICD10 Worksheet Patient Problems: Problems Problem Status Onset Abdominal pain Acute Fever Acute Postoperative infection Acute Abdominal pain Acute Abdominal pain, chronic, right lower quadrant Acute Acute Crohn's disease Acute Altered mental status Acute Bronchitis Acute Constipation Acute Crohns disease Acute Crohns disease of small intestine Acute Intra-abdominal abscess Acute Malnutrition Acute Severe sepsis Acute Vomiting Acute
[2017-05-18] MEDS ORDERED: FLUMAZENIL 0.5 MG/5 ML MDV IVP ONE (10:02)
[2017-05-18] MEDS ORDERED: fentaNYL 100 MCG/2 ML INJ ONE (10:02)
[2017-05-18] MEDS ORDERED: NALOXONE HCL 0.4 MG/ML INJ ONE (10:02)
[2017-05-18] MEDS ORDERED: MIDAZOLAM 2 MG/2 ML VIAL ONE (10:03)
[2017-05-18] MEDS ORDERED: HYDROmorphONE/DILAUDID 2 MG/ML INJ ONE (10:09)
[2017-05-18] MEDS ORDERED: NALOXONE HCL 0.4 MG/ML INJ IVP PRN (10:11)
[2017-05-18] MEDS ORDERED: MIDAZOLAM 2 MG/2 ML VIAL IVP PRN (10:11)
[2017-05-18] MEDS ORDERED: FLUMAZENIL 0.5 MG/5 ML MDV IVP PRN (10:11)
[2017-05-18] MEDS ORDERED: NS 1,000 ML IV SCH (10:15)
[2017-05-18] MEDS ORDERED: HYDROmorphone HCL/NS/PF 0.4 MG/2 ML SYR IVP PRN (10:30)
[2017-05-18] MEDS ORDERED: IOPAMIDOL (ISOVUE-300) 100 ML BTL ONE (10:50)
--- NOTE | 2017-05-18 11:23 | PDPROPOC ---
Sedation Plan of Care Sedation Plan of Care: vital signs stable, mental status noted, patient educated of risks, benefits, alternatives, patient can tolerate sedation ASA Classification: ASA 3 Planned drugs: fentanyl, midazolam Mallampati Score: Class 3 Mallampati Reference Image: Patient passed 3-3-2 rule?: Yes
--- NOTE | 2017-05-18 11:23 | PDRADPN ---
Radiology Procedure Note Date of Procedure: 05/18/17 Radiologist: Madeline Singh Anesthesia: IV Sedation Pre-op Diagnosis: crohns Post-op Diagnosis: same Indication: fluid collection after ostomy take down Procedure: CT guided abscess drain placement Finding(s): 6cc pus removed. Inf/Abcess present in the surg proc area at time of surgery?: Yes Depth: Deep Incisional (Fascial) Complications: none Drains: Other (8Fr abscess drain) Specimen(s): 6 cc fluid sent for GS/CX
--- NOTE | 2017-05-18 11:48 | ASMTCASEMG ---
Living Arrangements What is your living Answers: With Partner arrangement? Who do you live with? Type Of Residence What kind of residence do Answers: House you live in? Discharge Plan Comments Coordination Status Comments Notes: Pt is a 71 y/o female admitted for a post op infection. Pt is having her abscess drained today. OT have been ordered and awaiting recommendation. Pt will most likely d/c independent w/ supportive partner when medically ready. CM available for d/c needs. Date Signed: 05/18/2017 11:47 AM Electronically Signed By:YULI Cruz
[2017-05-18] MEDS: SODIUM FERRIC GLUCONAT/SUCROSE 125 MG in NS 100 ML IV SCH (13:09)
[2017-05-18] MEDS ORDERED: LORazepam 1 MG TAB PO PRN (17:34)
--- NOTE | 2017-05-18 18:51 | HOSPPROG ---
Hospitalist Progress Note Assessment/Plan: Assessment: 71 yo F w/ Crohn's presents with periumbilical abscess s/p recent bowel surgery Plan: 1. Intra-abdominal abscess: present at infra-umbilicus, unclear if related to recent surgery or Crohn's disease - POD#0 from IR drainage, drain currently indwelling - pain well controlled post-procedure, cont to monitor 24hr requirements - cont levo/flagyl - patient may be able to discharge home tomorrow w/ indwelling drain and home care, to be addressed by gen surg 2. Crohn's disease: no acute flare 3. Iron deficient anemia: normocytic, iron studies suggest inflammatory w/ iron deficient component - give IV iron x 2 - repeat Hgb as outpt Diet - Regular Code - Full Ppx - SCDs Dispo - ADD 05/19, pending stability of above. Subjective: patient reports abd pain improved s/p drain Objective: Vital Signs Temp Pulse Resp BP Pulse Ox 36.5 C 76 16 92/55 L 94 05/18/17 15:31 05/18/17 15:31 05/18/17 15:31 05/18/17 15:31 05/18/17 15:31 Microbiology 05/18/17 11:15 Gram Stain - Final Abdomen - Aspirate Laboratory Results 05/18/17 04:35 05/18/17 04:35 05/17/17 05/18/17 05/19/17 05:59 05:59 05:59 Intake Total 120 Output Total 450 1650 Balance -450 -1530 - Physical Exam Constitutional: no apparent distress, appears nourished, not in pain, No uncomfortable Cardiovascular: regular rate and rhythym, no murmur, rub, or gallop, No edema Respiratory: no respiratory distress, no rales or rhonchi, clear to auscultation Gastrointestinal: normoactive bowel sounds, tenderness (around drain site), distension (mild), No no palpable masses (mild firmness, possible mass adjacent to drain), No guarding Neurologic: AAOx3, No facial droop Psychiatric: interacting appropriately, not anxious, not encephalopathic, thought process linear ICD10 Worksheet Patient Problems: Problems Problem Status Onset Bronchitis Acute Malnutrition Acute Crohns disease Acute Intra-abdominal abscess Acute Abdominal pain, chronic, right lower quadrant Acute Crohns disease of small intestine Acute Abdominal pain Acute Acute Crohn's disease Acute Altered mental status Acute Severe sepsis Acute Abdominal pain Acute Vomiting Acute Constipation Acute Fever Acute Postoperative infection Acute
[2017-05-18] MEDS ORDERED: BISACODYL 10 MG SUPP PR PRN (18:53)
[2017-05-18] MEDS ORDERED: LACTULOSE 20 GM/30 ML UDCUP PO PRN (18:53)
[2017-05-18] MEDS ORDERED: POLYETHYLENE GLYCOL 3350 17 GM PKT PO PRN (18:53)
[2017-05-18] MEDS ORDERED: MAGNESIUM HYDROXIDE 30 ML UDCUP PO PRN (18:53)
[2017-05-18] MEDS: oxyCODONE IR 5 MG TAB PO SCH (21:07)
[2017-05-18] MEDS: ACETAMN/DIPHENHYDRAMINE 500/25MG TAB PO SCH (21:07)
[2017-05-18] MEDS: PREGABALIN 100 MG CAP PO SCH (21:07)
[2017-05-18] MEDS: DICYCLOMINE 10 MG CAP PO SCH (21:07)
[2017-05-18] MEDS: LORazepam 0.5 MG TAB PO SCH (21:07)
[2017-05-18] MEDS: SENNOSIDES/DOCUSATE SODIUM TAB PO SCH (21:07)
[2017-05-19 04:43] LABS: % IMMATURE GRANULYOCYTES 0.2 % (0.0-1.1); ABSOLUTE IMMATURE GRANULOCYTES 0.01 10^3/uL (0.00-0.10); ADD DIFF? NO; ADD MORPH? NO; ADD SCAN? NO; ATYPICAL LYMPHOCYTE FLAG 10 (0-99); FRAGMENT RBC FLAG 10 (0-99); HEMATOCRIT 26.9 % (38.0-47.0); HEMOGLOBIN 8.9 g/dL (12.6-16.3); LEFT SHIFT FLG 0 (0-99); LIPEMIA HEMOLYSIS FLAG 80 (0-99); MEAN CELL HEMOGLOBIN 28.2 pg (27.9-34.1); MEAN CELL HEMOGLOBIN CONCENTR. 33.1 g/dL (32.4-36.7); MEAN CELL VOLUME 85.1 fL (81.5-99.8); PLATELET CLUMPS FLAG 0 (0-99); PLATELET COUNT 386 10^3/uL (150-400); RED BLOOD CELL COUNT 3.16 10^6/uL (4.18-5.33); RED CELL DISTRIBUTION WIDTH 15.4 % (11.5-15.2)
[2017-05-19 05:00] LABS: ANION GAP 12 mEq/L (8-16); CALCIUM 8.9 mg/dL (8.5-10.4); CARBON DIOXIDE 21 mEq/l (22-31); CHLORIDE 110 mEq/L (97-110); CREATININE 0.8 mg/dL (0.6-1.0); GLOMERULAR FILTRATION RATE > 60; GLUCOSE 81 mg/dL (70-100); POTASSIUM 3.8 mEq/L (3.5-5.2); SODIUM 143 mEq/L (134-144)
[2017-05-19] MEDS: oxyCODONE IR 5 MG TAB PO SCH ×3 (08:52→21:13)
[2017-05-19] MEDS: SENNOSIDES/DOCUSATE SODIUM TAB PO SCH ×2 (08:52→21:09)
[2017-05-19] MEDS: LORazepam 0.5 MG TAB PO SCH ×2 (08:52→21:08)
[2017-05-19] MEDS: DICYCLOMINE 10 MG CAP PO SCH ×2 (08:52→21:08)
[2017-05-19] MEDS: PREGABALIN 100 MG CAP PO SCH ×2 (08:53→21:08)
[2017-05-19] MEDS: SODIUM FERRIC GLUCONAT/SUCROSE 125 MG in NS 100 ML IV SCH (08:53)
[2017-05-19] MEDS: FLUoxetine 20 MG CAP PO SCH (08:53)
--- NOTE | 2017-05-19 11:23 | SOAPPROG ---
SOAP Progress Note Assessment/Plan: Assessment: 71 yo female with hx of Crohns disease s/p small bowel resections and recent ostomy closure 5 weeks ago presented to the emergency department with abdominal pain, distention, and fever. Pt had an abdominal CT done, which showed a fluid collection just inferior to the umbilicus, consistent with abscess, and bowel wall thickening. S/P drain by IR with strep. Feeling better today but not well Continue IV abx Continue drain Will follow S: Not feeling well after had flagyl O: BS present, purulent drainage in JAS, firm medial to ostomy takedown site. 05/19/17 11:21 Objective: Vital Signs Temp Pulse Resp BP Pulse Ox 36.8 C 73 20 110/68 96 05/19/17 07:47 05/19/17 07:47 05/19/17 07:47 05/19/17 07:47 05/19/17 07:47 Microbiology 05/18/17 11:15 Gram Stain - Final Abdomen - Aspirate Laboratory Results 05/19/17 04:19 05/19/17 04:19 05/18/17 05/19/17 05/20/17 05:59 05:59 05:59 Intake Total 120 Output Total 450 1660 Balance -450 -1540 ICD10 Worksheet Patient Problems: Problems Problem Status Onset Abdominal pain Acute Fever Acute Postoperative infection Acute Abdominal pain Acute Abdominal pain, chronic, right lower quadrant Acute Acute Crohn's disease Acute Altered mental status Acute Bronchitis Acute Constipation Acute Crohns disease Acute Crohns disease of small intestine Acute Intra-abdominal abscess Acute Malnutrition Acute Severe sepsis Acute Vomiting Acute
--- NOTE | 2017-05-19 12:39 | HOSPPROG ---
Hospitalist Progress Note Assessment/Plan: 71 yo F w/ Crohn's presents with periumbilical abscess s/p recent bowel surgery. First encounter, chart reviewed. D/W Dr Yee. Plan: 1. Intra-abdominal abscess: present at infra-umbilicus POD#1 from IR drainage, drain currently indwelling pain well controlled post-procedure, cont to monitor 24hr requirements cont levo/flagyl, hx of bad reaction to invanz patient may be able to discharge home tomorrow w/ indwelling drain and home care , to be addressed by gen surg 2. Crohn's disease: no acute flare 3. Iron deficient anemia: normocytic, iron deficient component give IV iron x 2 repeat Hgb as outpt Diet - Regular Code - Full Ppx - SCDs Dispo - ADD 05/20, pending stability of above. Subjective: Still feels ill. Not ready to go home. Not hungry. Objective: Vital Signs Temp Pulse Resp BP Pulse Ox 36.6 C 80 18 71/43 L 96 05/19/17 11:53 05/19/17 11:53 05/19/17 11:53 05/19/17 11:53 05/19/17 11:53 Microbiology 05/18/17 11:15 Gram Stain - Final Abdomen - Aspirate Laboratory Results 05/19/17 04:19 05/19/17 04:19 05/18/17 05/19/17 05/20/17 05:59 05:59 05:59 Intake Total 120 Output Total 450 1660 Balance -450 -1540 - Physical Exam Constitutional: appears nourished, chronically ill appearing, uncomfortable Eyes: PERRL, anicteric sclera, EOMI Ears, Nose, Mouth, Throat: moist mucous membranes, hearing normal, ears appear normal Cardiovascular: regular rate and rhythym, No JVD, No edema Respiratory: no respiratory distress, no rales or rhonchi, reduced air movement Gastrointestinal: tenderness, other (drain), No ascites Skin: warm, normal color, No erythema Musculoskeletal: normal joint ROM, no joint effusions, generalized weakness Neurologic: AAOx3 Psychiatric: interacting appropriately, not anxious, not encephalopathic, thought process linear ICD10 Worksheet Patient Problems: Problems Problem Status Onset Bronchitis Acute Malnutrition Acute Crohns disease Acute Intra-abdominal abscess Acute Abdominal pain, chronic, right lower quadrant Acute Crohns disease of small intestine Acute Abdominal pain Acute Acute Crohn's disease Acute Altered mental status Acute Severe sepsis Acute Abdominal pain Acute Vomiting Acute Constipation Acute Fever Acute Postoperative infection Acute
[2017-05-19] MEDS: ACETAMN/DIPHENHYDRAMINE 500/25MG TAB PO SCH (21:08)
[2017-05-20 07:51] VITALS: BP 127/72; PULSE 77; RESP 20; TEMP 98.5; O2SAT 95
--- NOTE | 2017-05-20 07:57 | SOAPPROG ---
SOAP Progress Note Assessment/Plan: Assessment: 71 yo female with hx of Crohns disease s/p small bowel resections and recent ostomy closure 5 weeks ago presented to the emergency department with abdominal pain, distention, and fever. Pt had an abdominal CT done, which showed a fluid collection just inferior to the umbilicus, consistent with abscess, and bowel wall thickening. S/P drain by IR with strep. Feeling better today Continue abx, so far only growing strep. I think it will be fine to be discharged with drain and po antibiotics to include strep Continue drain I will see in office on tuesday or in house tomorrow if still here S:Feeling better today O: BS present, scant drainage in JAS, less firm medial to ostomy takedown site. 05/19/17 11:21 05/20/17 07:56 Objective: Vital Signs Temp Pulse Resp BP Pulse Ox 36.9 C 77 20 127/72 H 95 05/20/17 07:49 05/20/17 07:49 05/20/17 07:49 05/20/17 07:49 05/20/17 07:49 Microbiology 05/18/17 11:15 Gram Stain - Final Abdomen - Aspirate Laboratory Results 05/19/17 04:19 05/19/17 04:19 05/19/17 05/20/17 05/21/17 05:59 05:59 05:59 Intake Total 120 Output Total 1660 20 Balance -1540 -20 ICD10 Worksheet Patient Problems: Problems Problem Status Onset Abdominal pain Acute Fever Acute Postoperative infection Acute Abdominal pain Acute Abdominal pain, chronic, right lower quadrant Acute Acute Crohn's disease Acute Altered mental status Acute Bronchitis Acute Constipation Acute Crohns disease Acute Crohns disease of small intestine Acute Intra-abdominal abscess Acute Malnutrition Acute Severe sepsis Acute Vomiting Acute
[2017-05-20] MEDS: oxyCODONE IR 5 MG TAB PO SCH (08:48)
[2017-05-20] MEDS: LORazepam 0.5 MG TAB PO SCH (08:48)
[2017-05-20] MEDS: PREGABALIN 100 MG CAP PO SCH (08:48)
[2017-05-20] MEDS: DICYCLOMINE 10 MG CAP PO SCH (08:48)
[2017-05-20] MEDS: FLUoxetine 20 MG CAP PO SCH (08:48)
[2017-05-20] MEDS: SODIUM FERRIC GLUCONAT/SUCROSE 125 MG in NS 100 ML IV SCH (08:48)
[2017-05-20] MEDS: SENNOSIDES/DOCUSATE SODIUM TAB PO SCH (08:51)
--- NOTE | 2017-05-20 10:06 | PDIAF ---
- Diagnosis Diagnosis: abd abcess Code Status: Full Code - Medication Management Discharge Medications: Medications to Continue on Transfer Dicyclomine [Bentyl 10 MG (*)] 10 mg PO BID 12/06/16 [Last Taken 05/17/17] FLUoxetine [Prozac 20 MG (*)] 60 mg PO DAILY 12/06/16 [Last Taken 05/17/17] LORazepam [Ativan (*)] 0.5 mg PO BID 12/06/16 [Last Taken 04/06/17 22:00] Acetamn/Diphenhydramine 500/25 [Tylenol PM (*)] 2 each PO HS 03/28/17 [Last Taken 05/16/17] Pregabalin [Lyrica 50mg (*)] 100 mg PO BID 03/28/17 [Last Taken 04/06/17 12:00] oxyCODONE IR [Oxycodone Ir (*)] 5 mg PO TID 03/28/17 [Last Taken 05/17/17 12:00] Acetaminophen [Tylenol 325mg (*)] 650 mg PO Q4HRS PRN tab 05/20/17 [Last Taken Unknown] levOFLOXACIN [levAQUIN (*)] 750 mg PO DAILY #7 tab 05/20/17 [Last Taken Unknown] metroNIDAZOLE [Flagyl 250 mg (*)] 250 mg PO Q6 #21 tab 05/20/17 [Last Taken Unknown] Mcc Antibiotics: levaquin/flagyl Discharge Medications: Refer to the Discharge Home Medication list for PRN reason. PICC Care - Routine: N/A - Orders Services needed: Home Care, Registered Nurse Home Care Face to Face: I certify that this patient was under my care and that I had the required [id number] encounter meeting the encounter requirements on the discharge day. My findings support the fact that the patient is homebound as defined in Home Care Face to Face Continued: CMS Chapter 7 Medicare Benefits Manual 30.1.1 , The condition of the patient is such that there exists a normal inability to leave home and consequently, leaving home would require a considerable and taxing effort. Diet Recommendation: no restrictions on diet - Follow Up Care Current Providers and Referrals: Kassy Yee MD [Medical Doctor] - (Tuesday - call to make an appointment) Cherelle Welsh MD [Primary Care Provider] -
--- NOTE | 2017-05-20 12:04 | ASDISCHSUM ---
Discharge Information Plan Status:Home with No Needs Medically Cleared to Leave:05/19/2017 Discharge Date:05/20/2017 11:44 AM CM D/C Disposition: ADT D/C Disposition:Home Health Service Projected Discharge Date:05/20/2017 12:00 AM Transportation at D/C: Discharge Delay Reason: Follow-Up Date:05/20/2017 12:00 AM Discharge Slot: Final Diagnosis: Placement Information Patient Contact Information Contact Name:KANDICE Relationship:Life Partner Address:[address] Work Phone: City:[place] Alternate Phone: State/Zip Code:[place] [address] Email: Financial Information Financial Class: Primary Plan Desc:MEDICARE INPATIENT Primary Plan Number:[id number] Secondary Plan Desc:MED[place] Secondary Plan Number:[id number] Assessment Information [facility] Initial CM Assessment Living Arrangements What is your living Answers: With Partner arrangement? Who do you live with? Type Of Residence What kind of residence do Answers: House you live in? Discharge Plan Comments Coordination Status Comments Notes: Pt is a 71 y/o female admitted for a post op infection. Pt is having her abscess drained today. OT have been ordered and awaiting recommendation. Pt will most likely d/c independent w/ supportive partner when medically ready. CM available for d/c needs. Date Signed: 05/18/2017 11:47 AM Electronically Signed By:YULI Cruz Case Management Discharge Plan Note Case Management Discharge Discharge Order Complete? Answers: Yes Patient to Obtain Answers: Independently Medications Transportation Arranged Answers: Family/Friends Transport will Pick (Date 05/20/2017 12:00 AM & Time) NEFTALI Complete Answers: No Case Management Transport Answers: No Form Complete Faxed Final Orders Answers: No Agency/Facility Transfer Answers: No Report Printed & Faxed to Receiving Agency Family Notified Answers: No Notes: Pt has arranged transpo rt w/ family. Discharge Comments Notes: Pt is being discharged independent w/out any needs. Pt refused VINITA, RN to help manage her drain. Pt reports that she has an appointment w/ Dr. Yee on Tuesday. Pt reports that she will be living w/ her children. Pt reports feeling very fortunate to have their support. CM available for changes. Date Signed: 05/20/2017 10:21 AM Electronically Signed By:YULI Cruz Intervention Information Intervention Type:*IM-Signed Date of Service:05/20/2017 10:49 AM Patient Type:Inpatient Staff Member:YULI Kelley Michelle Hours: Discipline: Severity: Comment:
--- NOTE | 2017-05-20 13:49 | GDS ---
[f rep st] DISCHARGE SUMMARY DISCHARGE DIAGNOSES: 1. Intraabdominal abscess. 2. History of Crohn disease. 3. Iron-deficiency anemia. CONSULTATION: Dr. Kassy Yee. STUDIES AND PROCEDURES DONE: 1. CT of the abdomen. 2. Abscess drainage CT. PHYSICAL EXAM: GENERAL: The patient is alert. VITAL SIGNS: Afebrile at 36.9, pulse is 77, respira tory rate is 20, blood pressure is 127/72, she is saturating 95% on room air. I have seen and evaluated the patient on the day of discharge. HOSPITAL COURSE: The patient is a 71-year-old female, who presents TO the hospital with complaints o f abdominal pain. She was evaluated and diagnosed with: 1. Intraabdominal abscess. During this hospitalization she received a consultation from Dr. Yee. A drain was placed under Interventional Radiology. The patient has been continued on IV antibiotics during this hospitalization and will continue oral Levaquin and Flagyl at the time of disposition. She has significantly improved and will follow up in the outpatient setting. 2. History of Crohn disease. She has no signs of acute flare at this time. 3. Iron-deficiency anemia. The patient did receive 2 transfusions of IV iron during this hospitaliz ation. She will follow in the outpatient setting with further adjustments to be made. DISPOSITION: The patient will be discharged home independently. She still has a JAS drain intact della t she will empty and monitor daily. She has been offered home health care at the time of disposition , but is denying. I have reviewed the patient's disposition with Dr. Yee. She is in agreement wit h the plan. FOLLOWUP: The patient will follow up with Dr. Yee in 4 days in the office. There are no pending studies. DISCHARGE MEDICATIONS: Prescription for Flagyl as well as Levaquin have been provided at the time of disposition. The patient is sensitive to antibiotic therapy. We will try to limit her course of an tibiotics as much as appropriate. I spent greater than 35 minutes in the care, coordination, and management of this patient's dispositi on. /[id number]/MODL
== END 2017-05-20 11:44 | disposition home or self-care (01) | DRG 862 ==
LOC: OBSVTOIN 22:46 → F3E 22:51
PROVIDERS: ADMIT Hospitalist; ATTEND Hospitalist
PROC: 0W9G30Z Drainage of Peritoneal Cavity with Drainage Device, Percutaneous Approach (ICD-10-PCS; principal; 2017-05-18 11:09)
DX: T81.4XXA Infection following a procedure, initial encounter (principal); K65.1 Peritoneal abscess; D50.9 Iron deficiency anemia, unspecified
CPT/HCPCS: 82607-90; 96365; 97165-GO; G8987-GO-CI; G8988-GO-CI; G8989-GO-CI; J1170; J1956; J2060; J2250; J2310; J2916; J3010; J3370; Q9967

== ENCOUNTER → 2017-05-17 | Outpatient (CLI) | payer OTHER, MEDICAID | LOC: CIMAGING 12:04 | PROVIDERS: ATTEND Family Medicine | DX: R10.9 Unspecified abdominal pain (principal); K50.90 Crohn's disease, unspecified, without complications; Z90.49 Acquired absence of other specified parts of digestive tract | CPT/HCPCS: 76705-PO ==

== ENCOUNTER 2017-05-27 09:04 | Day surgery (SDC) | payer OTHER, MEDICAID ==
[2017-05-27] MEDS ORDERED: IOPAMIDOL (ISOVUE-300) 100 ML BTL ONE (10:25)
[2017-05-27 12:11] VITALS: BP 107/62; PULSE 72
[2017-05-27 12:13] VITALS: RESP 16; TEMP 99.1; O2SAT 92
== END 2017-05-27 12:00 | disposition home or self-care (01) ==
LOC: FIMAGING 09:04
PROVIDERS: ATTEND Radiology Diagnostic Radiology
DX: L02.211 Cutaneous abscess of abdominal wall (principal)
CPT/HCPCS: Q9967

== ENCOUNTER 2017-06-10 07:54 | Inpatient (IN) | payer OTHER, MEDICAID ==
--- NOTE | 2017-06-08 16:18 | GHP ---
[f rep st] PREOP HISTORY AND PHYSICAL DATE OF ADMISSION: 06/10/2017 DATE OF SURGERY: 06/10/2017. PREOPERATIVE DIAGNOSIS: Enterocutaneous fistula. HISTORY OF PRESENT ILLNESS: The patient is a 71-year-old woman who underwent small-bowel resection a nd ileostomy takedown. Since the time of her surgery, she developed abdominal pain. She had a CT sc an performed, which showed an abdominal abscess. She was placed on IV antibiotics. Interventional R adiology placed a drain. She continues to have between 5-10 cc output per day. The drainage is a br own, purulent material. She no longer has induration of her abdominal wall. She denies fevers or ch ills. She had a drain study performed on 05/27/2017, which showed a multiloculated anterior abdomina l wall fluid collection that communicates with the underlying bowel, consistent with an enterocutaneo us fistula. PAST MEDICAL HISTORY: Crohn disease, chronic pain, degenerative disk disease, depression. PAST SURGICAL HISTORY: Breast augmentation, cervical diskectomy, colectomy, small-bowel resection fo r obstruction, takedown of diverting ileostomy, laminectomy, hernia repair. SOCIAL HISTORY: She recently from her partner. She is living with her daughter. She lillian es tobacco or alcohol use. She uses medical marijuana. FAMILY HISTORY: Significant for heart disease and lung cancer. REVIEW OF SYSTEMS: Ten-point review of systems is negative, aside from the HPI. PHYSICAL EXAM: GENERAL: Pleasant, thin woman, in no acute distress. HEENT: Normocephalic, atrauma tic. No hearing deficits. Pupils equal and round. No scleral icterus. Mucous membranes moist. NE CK: Trachea midline. RESPIRATORY: Clear to auscultation bilaterally. No increased work of breathi ng. CARDIOVASCULAR: Regular rate and rhythm. No peripheral edema. ABDOMEN: Soft, nondistended, n ontender. JAS drain with brown, purulent material. No induration or erythema of abdominal wall. PSY CH: Mood and affect normal. MUSCULOSKELETAL: Normal gait. Normal nails. NEURO: Grossly intact. IMPRESSION AND PLAN: The patient is a 71-year-old woman with Crohn disease who underwent small-bowel resection, developed an enterocutaneous fistula. She will go to the operating room for exploratory laparotomy with revision of anastomosis. We discussed risks of surgery, including, but not limited t o, heart attack, stroke, blood clots or . We discussed risk of infection, bleeding, damage to s urrounding structures, delayed wound healing, or further complications, such as fistulization. She u nderstands the risks and would like to proceed. This will be an inpatient procedure. She will recei ve antibiotics on-call to the operating room. The patient was additionally seen by Dr. Kassy Yee, who agrees with the above impression and plan. /[id number]/MODL
[2017-06-10] MEDS ORDERED: levOFLOXACIN 500 MG/DEXTROSE 100 ML IV ONE (08:03)
[2017-06-10] MEDS ORDERED: LIDOCAINE 1% 2 ML INJ ID PRN (08:04)
--- NOTE | 2017-06-10 10:02 | PDHPUP ---
History & Physical Update H&P update statement: This history and physical update is based on an assessment of the patient which was completed after admission or registration (within 24 hours), but prior to the surgery/procedure. H&P update: H&P reviewed & patient examined H&P changes: fell. Drainage
[2017-06-10] MEDS ORDERED: MIDAZOLAM 2 MG/2 ML VIAL IVP ONE (10:10)
[2017-06-10] MEDS ORDERED: BUPIVACAINE 0.5% 30 ML SDV ONE (10:11)
--- NOTE | 2017-06-10 10:12 | PDANEPAE ---
ANE History of Present Illness here for ex lap ANE Past Medical History - Cardiovascular History Hx Hypertension: No Hx Arrhythmias: No Hx Chest Pain: No Hx Coronary Artery / Peripheral Vascular Disease: No Hx CHF / Valvular Disease: No Hx Palpitations: No - Pulmonary History Hx COPD: No Hx Asthma/Reactive Airway Disease: No Hx Recent Upper Respiratory Infection: No Hx Oxygen in Use at Home: No Hx Sleep Apnea: No Sleep Apnea Screening Result - Last Documented: Negative Pulmonary History Comment: quit smoking 2 cigs/day 03-28-17. "fluid in lungs- September while in ICU for sepsis" - Neurologic History Hx Cerebrovascular Accident: No Hx Seizures: No Hx Dementia: No Neurologic History Comment: scoliosis-back and neck pain. - Endocrine History Hx Diabetes: No - Renal History Hx Renal Disorders: No - Liver History Hx Hepatic Disorders: No - Neurological & Psychiatric Hx Hx Neurological and Psychiatric Disorders: Yes Neurological / Psychiatric History Comment: ANXIETY, depression. - Cancer History Hx Cancer: No - Congenital Disorder History Hx Congenital Disorders: No - GI History Hx Gastrointestinal Disorders: Yes Gastrointestinal History Comment: CROHNS. 03/2017 EUA FOR IMPACTION WITH KIP. "ulcers found in upper and lower bowel", VIOLENT VOMITTING after feeding tube removed. No vomitting now. - Other Health History Other Health History: WEARS GLASSES - Chronic Pain History Chronic Pain: Yes (back,neck.) - Surgical History Prior Surgeries: 04/09/17 EUA WITH EVACUATION OF STOOL WITH KIP. BOWEL RESECTION. TUBAL LIGATION. CERVICAL SURG. BACK SURG FOR GROWTH ANE Review of Systems Review of systems is: negative Review of Systems: - Exercise capacity Exercise capacity: >=4 METS METS (RN): 4 METS ANE Patient History - Allergies Allergies/Adverse Reactions: fentanyl [Fentanyl] Allergy (Severe, Verified 12/14/16 19:19) WEIGHT LOSS, MEMORY LOSS Penicillins Allergy (Severe, Verified 04/06/17 21:46) SEIZURES Sulfa (Sulfonamide Antibiotics) Allergy (Severe, Verified 04/06/17 21:46) NAUSEA azathioprine Allergy (Unknown, Unverified 04/06/17 21:46) Rash budesonide Allergy (Unknown, Unverified 04/06/17 21:46) Rash gabapentin Allergy (Unknown, Unverified 04/06/17 21:46) Rash infliximab Allergy (Unknown, Unverified 04/06/17 21:46) Itching mesalamine Allergy (Unknown, Unverified 04/06/17 21:46) Rash morphine Allergy (Unknown, Verified 04/06/17 21:46) PT BECOMES "MEAN" tramadol [Tramadol] Allergy (Unknown, Verified 04/06/17 21:46) azathioprine sodium [From Imuran] Allergy (Verified 04/06/17 21:46) Rash cefuroxime [From Ceftin] Allergy (Verified 04/06/17 21:46) Other-Enter Comments ertapenem [From Invanz] Allergy (Verified 04/06/17 21:46) Other-Enter Comments azathioprine sodium Allergy (Unknown, Uncoded 04/06/17 21:46) Rash - Home Medications Home medications: home medication list seen and reviewed Home Medications: Dicyclomine [Bentyl 10 MG (*)] 10 mg PO BID 12/06/16 [Last Taken 06/09/17] FLUoxetine [Prozac 20 MG (*)] 60 mg PO DAILY 12/06/16 [Last Taken 06/09/17] LORazepam [Ativan (*)] 0.5 mg PO BID 12/06/16 [Last Taken 06/09/17] Acetamn/Diphenhydramine 500/25 [Tylenol PM (*)] 2 each PO HS 03/28/17 [Last Taken 06/08/17] Pregabalin [Lyrica 50mg (*)] 100 mg PO BID 03/28/17 [Last Taken 06/09/17] oxyCODONE IR [Oxycodone Ir (*)] 5 mg PO TID 03/28/17 [Last Taken 06/09/17 17:00] - NPO status NPO Since - Liquids (Date): 06/09/17 NPO Since - Liquids (Time): 18:30 NPO Since - Solids (Date): 06/09/17 NPO Since - Solids (Time): 17:00 - Smoking Hx Smoking Status: Current some day smoker - Family Anes Hx Family Hx Anesthesia Complications: NEG ANE Labs/Vital Signs - Vital Signs Blood Pressure: 143/67 Heart Rate: 67 Respiratory Rate: 17 O2 Sat (%): 97 Height: 152.4 cm Weight: 44.452 kg ANE Physical Exam - Airway Neck exam: FROM Mallampati Score: Class 1 - Pulmonary Pulmonary: no respiratory distress - Cardiovascular Cardiovascular: regular rate and rhythym - ASA Status ASA Status: II ANE Anesthesia Plan Anesthesia Plan: general endotracheal anesthesia
[2017-06-10] MEDS ORDERED: PROPOFOL/EMULSION 500 MG/50 ML BOTTLE IV ONE (10:17)
[2017-06-10] MEDS ORDERED: HYDROmorphONE/DILAUDID 2 MG/ML INJ ONE ×2 (10:20→12:12)
[2017-06-10] MEDS ORDERED: MIDAZOLAM 2 MG/2 ML VIAL ONE (10:22)
[2017-06-10] MEDS ORDERED: KETAMINE 100 MG/10 ML SYR ONE (10:43)
[2017-06-10] MEDS ORDERED: ONDANSETRON 4 MG/2 ML VIAL IVP PRN (10:54)
[2017-06-10] MEDS ORDERED: DEXAMETHASONE 4 MG/ML VIAL IVP PRN (10:54)
[2017-06-10] MEDS ORDERED: NALOXONE HCL 0.4 MG/ML INJ IVP PRN (10:54)
[2017-06-10] MEDS ORDERED: ALBUTEROL 3 ML DEYVIAL IH PRN (10:54)
[2017-06-10] MEDS ORDERED: SUGAMMADEX SODIUM 200 MG/2 ML VIAL IVP ONE (12:40)
--- NOTE | 2017-06-10 12:43 | POSTOPPROG ---
Post Op Note Date of Operation: 06/10/17 Surgeon: Kassy Yee Insulator Cutter And Former: deny Anesthesiologist: gladys Anesthesia: GET(General Endotracheal) Pre-op Diagnosis: enterocutaneous fistula Post-op Diagnosis: same Indication: 71yo F s/p R hemicolectomy with enterocutaneous fistula at anastamosis Procedure: ex lap, lysis of adhesions, small bowel resection Findings: extensive adhesions, enterocutaneous fistula Inf/Abcess present in the surg proc area at time of surgery?: Yes Depth: Organ Space EBL: Minimal Specimen(s): anastomosis, small bowel
[2017-06-10] MEDS ORDERED: NS 1,000 ML IV SCH (12:45)
[2017-06-10] MEDS ORDERED: ACETAMINOPHEN 325 MG TAB PO PRN (12:45)
[2017-06-10] MEDS ORDERED: HYDROmorphONE/DILAUDID 1 MG/ML INJ ONE (13:38)
[2017-06-10] MEDS: HYDROmorphONE/DILAUDID 1 MG/ML INJ IVP PRN ×2 (13:39→13:48)
[2017-06-10] MEDS: diphenhydrAMINE 25 MG CAP PO PRN (15:15)
[2017-06-10] MEDS: ONDANSETRON 4 MG/2 ML VIAL IVP PRN (15:16)
[2017-06-10] MEDS: HYDROmorphone HCL/NS/PF 0.4 MG/2 ML SYR IVP PRN ×2 (15:16→17:44)
[2017-06-10] MEDS: LR 1,000 ML IV ONE ×2 (15:18→16:34)
[2017-06-10] MEDS: HYDROCODONE/APAP 5/325 TAB PO PRN (16:33)
[2017-06-10] MEDS: KETOROLAC 15 MG/1 ML SDV IVP SCH ×2 (17:44→23:03)
--- NOTE | 2017-06-10 17:52 | POSTANESTH ---
Post Anesthetic Evaluation Cardiovascular Status: Normal, Stable Respiratory Status: Normal, Stable Level of Consciousness/Mental Status: Can Participate in Eval, Moderately Sleepy Pain Control: Adequate, Prn Tx Ordered Nausea/Vomiting Control: Adequate, Prn Tx Ordered Complications Possibly Related to Anesthesia: None Noted
[2017-06-10] MEDS ORDERED: LR 1,000 ML IV SCH (19:30)
[2017-06-11] MEDS: diphenhydrAMINE 25 MG CAP PO PRN (01:07)
[2017-06-11] MEDS: HYDROCODONE/APAP 5/325 TAB PO PRN ×4 (04:41→18:51)
[2017-06-11] MEDS: KETOROLAC 15 MG/1 ML SDV IVP SCH ×4 (05:29→23:07)
[2017-06-11 06:20] LABS: PLATELET COUNT 356 10^3/uL (150-400)
[2017-06-11] MEDS: HYDROmorphone HCL/NS/PF 0.4 MG/2 ML SYR IVP PRN ×2 (07:51→16:27)
[2017-06-11] MEDS: levOFLOXACIN 500 MG/DEXTROSE 100 ML IV SCH (07:52)
[2017-06-11] MEDS: ENOXAPARIN 40 MG/0.4 ML SYR SC SCH (07:52)
--- NOTE | 2017-06-11 13:25 | SOAPPROG ---
SOAP Progress Note Assessment/Plan: Assessment: STATUS POST RESECTION OF A ENTEROCUTANEOUS FISTULA/AFEBRILE/VITAL SIGNS STABLE/ URINE OUTPUT OKAY ABDOMEN SOFT WOUND CLEAN AND DRY WITH HYDROFERA IN PLACE Plan: CONTINUE PRESENT ORDERS/CONTINUE NPO 06/11/17 13:23 Objective: Vital Signs Temp Pulse Resp BP Pulse Ox 37.1 C 76 16 124/72 H 98 06/11/17 11:06 06/11/17 11:06 06/11/17 11:06 06/11/17 11:06 06/11/17 11:06 Laboratory Results 06/11/17 05:58 06/11/17 05:58 06/10/17 06/11/17 06/12/17 05:59 05:59 05:59 Intake Total 1567 Balance 1567 ICD10 Worksheet Patient Problems: Problems Problem Status Onset Abdominal pain Acute Abdominal pain Acute Abdominal pain, chronic, right lower quadrant Acute Acute Crohn's disease Acute Altered mental status Acute Bronchitis Acute Constipation Acute Crohns disease Acute Crohns disease of small intestine Acute Fever Acute Intra-abdominal abscess Acute Malnutrition Acute Postoperative infection Acute Severe sepsis Acute Vomiting Acute
[2017-06-11] MEDS: ONDANSETRON 4 MG/2 ML VIAL IVP PRN (23:04)
[2017-06-12] MEDS ORDERED: LORazepam 2 MG/ML INJ IVP PRN (02:17)
[2017-06-12] MEDS: KETOROLAC 15 MG/1 ML SDV IVP SCH ×3 (05:14→18:30)
[2017-06-12] MEDS: ENOXAPARIN 40 MG/0.4 ML SYR SC SCH (10:13)
[2017-06-12] MEDS: levOFLOXACIN 500 MG/DEXTROSE 100 ML IV SCH (10:13)
--- NOTE | 2017-06-12 11:27 | SOAPPROG ---
SOAP Progress Note Assessment/Plan: Assessment: STATUS POST RESECTION OF A ENTEROCUTANEOUS FISTULA/AFEBRILE/VITAL SIGNS STABLE/ URINE OUTPUT OKAY ABDOMEN SOFT WOUND CLEAN AND DRY WITH HYDROFERA IN PLACE Plan: CONTINUE PRESENT ORDERS/CONTINUE NPO 06/11/17 13:23 06/12/17 11:26 complain of discomfort/ wound ok/ afebrile/ uo ok/ abd soft with bs/ plan clears Objective: Vital Signs Temp Pulse Resp BP Pulse Ox 37.2 C 100 17 134/70 H 97 06/12/17 04:00 06/12/17 04:00 06/12/17 04:00 06/12/17 04:00 06/12/17 04:00 Laboratory Results 06/11/17 05:58 06/11/17 05:58 06/11/17 06/12/17 06/13/17 05:59 05:59 05:59 Intake Total 1567 1834 Output Total 1350 Balance 1567 484 ICD10 Worksheet Patient Problems: Problems Problem Status Onset Abdominal pain Acute Abdominal pain Acute Abdominal pain, chronic, right lower quadrant Acute Acute Crohn's disease Acute Altered mental status Acute Bronchitis Acute Constipation Acute Crohns disease Acute Crohns disease of small intestine Acute Fever Acute Intra-abdominal abscess Acute Malnutrition Acute Postoperative infection Acute Severe sepsis Acute Vomiting Acute
[2017-06-12] MEDS: LORazepam 1 MG TAB PO PRN (12:50)
--- NOTE | 2017-06-12 16:18 | ASMTCMCOM ---
CM Note CM Note Notes: Chart reviewed. Patient post surgery. Slow improvement. No therapies ordered yet. Advanced to clears but poor tolerance. Note from spiritual care appreciated. Attempted to see patient but she was asleep. From the note it appears she has multiple problems. Needs to be determined. CM to follow. Date Signed: 06/12/2017 04:18 PM Electronically Signed By:Amelia Ross RN
[2017-06-12] MEDS: ONDANSETRON DISINTEGRATING 4 MG TAB PO PRN (18:35)
[2017-06-13] MEDS: KETOROLAC 15 MG/1 ML SDV IVP SCH ×5 (00:40→23:41)
[2017-06-13] MEDS: ENOXAPARIN 40 MG/0.4 ML SYR SC SCH (09:40)
[2017-06-13] MEDS: levOFLOXACIN 500 MG/DEXTROSE 100 ML IV SCH (09:40)
[2017-06-13] MEDS: ONDANSETRON DISINTEGRATING 4 MG TAB PO PRN ×2 (12:05→18:01)
[2017-06-13] MEDS: HYDROCODONE/APAP 5/325 TAB PO PRN (12:05)
--- NOTE | 2017-06-13 16:12 | SOAPPROG ---
SOAP Progress Note Assessment/Plan: Assessment/Plan: 71yo F POD#3 s/p ex lap, lysis of adhesions and small bowel resection Path pending Clear liquid diet +Flatus and several small loose BMs today Uncontrolled nausea today Pain controlled Dispo: likely home in 1-2 days when nausea controlled and tolerating diet S: Nausea this morning that is not getting better with zofran. no pain. ambulating halls. O: laying in bed, comfortable, NAD No increased WOB +BS, abd softly distended, nontender. Incision CDI. HFB packing in central incision changed. No evidence of infection Objective: Vital Signs Temp Pulse Resp BP Pulse Ox 37 C 78 14 119/76 93 06/13/17 15:58 06/13/17 15:58 06/13/17 15:58 06/13/17 15:58 06/13/17 15:58 Laboratory Results 06/11/17 05:58 06/11/17 05:58 06/12/17 06/13/17 06/14/17 05:59 05:59 05:59 Intake Total 1834 600 Output Total 1350 500 Balance 484 100 ICD10 Worksheet Patient Problems: Problems Problem Status Onset Abdominal pain Acute Abdominal pain Acute Abdominal pain, chronic, right lower quadrant Acute Acute Crohn's disease Acute Altered mental status Acute Bronchitis Acute Constipation Acute Crohns disease Acute Crohns disease of small intestine Acute Fever Acute Intra-abdominal abscess Acute Malnutrition Acute Postoperative infection Acute Severe sepsis Acute Vomiting Acute
[2017-06-13] MEDS: LORazepam 1 MG TAB PO PRN (18:01)
[2017-06-14] MEDS: ONDANSETRON DISINTEGRATING 4 MG TAB PO PRN ×3 (02:18→17:00)
[2017-06-14] MEDS: PROMETHAZINE HCL 25 MG/ML INJ IVP PRN ×4 (03:56→21:34)
[2017-06-14] MEDS: LORazepam 1 MG TAB PO PRN ×3 (04:02→16:59)
[2017-06-14] MEDS: KETOROLAC 15 MG/1 ML SDV IVP SCH ×3 (06:03→18:41)
--- NOTE | 2017-06-14 08:05 | SOAPPROG ---
SOAP Progress Note Assessment/Plan: Assessment/Plan: 71yo F POD#4 s/p ex lap, lysis of adhesions and small bowel resection Path pending Clear liquid diet +Flatus and several small loose BMs today Uncontrolled nausea - check XR, check labs Pain controlled Dispo: likely home in 1-2 days when nausea controlled and tolerating diet S: Nausea O: laying in bed, comfortable, NAD No increased WOB +BS, abd softly distended, nontender. Incision CDI. HFB packing in central incision changed. No evidence of infection 06/14/17 08:04 06/14/17 08:05 Objective: Vital Signs Temp Pulse Resp BP Pulse Ox 36.9 C 94 14 157/93 H 90 L 06/14/17 07:36 06/14/17 07:36 06/14/17 07:36 06/14/17 07:36 06/14/17 07:36 Laboratory Results 06/11/17 05:58 06/11/17 05:58 06/13/17 06/14/17 06/15/17 05:59 05:59 05:59 Intake Total 600 440 Output Total 500 Balance 100 440 ICD10 Worksheet Patient Problems: Problems Problem Status Onset Abdominal pain Acute Abdominal pain Acute Abdominal pain, chronic, right lower quadrant Acute Acute Crohn's disease Acute Altered mental status Acute Bronchitis Acute Constipation Acute Crohns disease Acute Crohns disease of small intestine Acute Fever Acute Intra-abdominal abscess Acute Malnutrition Acute Postoperative infection Acute Severe sepsis Acute Vomiting Acute
[2017-06-14 10:41] LABS: PLATELET COUNT 386 10^3/uL (150-400)
--- NOTE | 2017-06-14 11:20 | ASMTCMCOM ---
CM Note CM Note Notes: Patient is not doing well and has severe nausea this morning. Patient's nurse states patient is also experiencing anxiety that is making her recovery slower. Initially looking at home care for d/c. Patient may need some SNF rehab according to the nurse. CM will follow. Date Signed: 06/14/2017 11:20 AM Electronically Signed By:Joselin Bowling LCSW
[2017-06-14] MEDS: ENOXAPARIN 40 MG/0.4 ML SYR SC SCH (11:54)
[2017-06-14] MEDS: levOFLOXACIN 500 MG/DEXTROSE 100 ML IV SCH (11:54)
[2017-06-14] MEDS ORDERED: POTASSIUM CL 20 MEQ/15 ML UDCUP PO ONE (13:39)
[2017-06-14] MEDS ORDERED: POTASSIUM CL 20 MEQ TAB PO ONE (13:48)
[2017-06-14] MEDS ORDERED: METOCLOPRAMIDE 10 MG/2 ML VIAL IVP PRN (20:32)
[2017-06-14] MEDS ORDERED: hydrALAZINE 20 MG/ML VIAL IVP PRN (20:33)
[2017-06-15] MEDS: ONDANSETRON 4 MG/2 ML VIAL IVP PRN (00:43)
[2017-06-15] MEDS: LORazepam 1 MG TAB PO PRN (00:49)
[2017-06-15] MEDS: KETOROLAC 15 MG/1 ML SDV IVP SCH ×3 (00:50→12:14)
[2017-06-15] MEDS: PROMETHAZINE HCL 25 MG/ML INJ IVP PRN (03:41)
[2017-06-15] MEDS ORDERED: LR 1,000 ML IV SCH (06:00)
[2017-06-15] MEDS ORDERED: MAGNESIUM SULF 2 GM/WATER 50 ML IV ONE (07:17)
[2017-06-15] MEDS ORDERED: POTASSIUM CL 20 MEQ TAB PO ONE (07:18)
[2017-06-15] MEDS ORDERED: POTASSIUM CL 20 MEQ/15 ML UDCUP PO ONE (07:18)
[2017-06-15] MEDS ORDERED: TROLAMINE SALICYLATE 85 GM CRTUBE TP PRN (07:22)
--- NOTE | 2017-06-15 08:53 | SOAPPROG ---
SOAP Progress Note Assessment/Plan: Assessment/Plan: 71yo F POD#5 s/p ex lap, lysis of adhesions and small bowel resection Hypokalemia - replace and recheck this afternoon Tachycardia - feels very anxious and thinks this is contributing Hospitalists to see today +flatus and BMs Persistent nausea - DC antibiotics, consider abd CT. XR yesterday nl. Check C. diff Dispo: continue inpt until nausea controlled, CV stable S: Nausea and anxiety. dry heaves and some vomiting. O: laying in bed, anxious, appears uncomfortable No increased WOB +BS, abd softly distended, nontender. Inc CDI Objective: Vital Signs Temp Pulse Resp BP Pulse Ox 36.8 C 122 H 18 149/93 H 99 06/15/17 07:44 06/15/17 07:44 06/15/17 07:44 06/15/17 07:44 06/15/17 07:44 Laboratory Results 06/14/17 10:25 06/15/17 04:23 06/14/17 06/15/17 06/16/17 05:59 05:59 05:59 Intake Total 440 490 740 Output Total 800 150 Balance 440 -310 590 ICD10 Worksheet Patient Problems: Problems Problem Status Onset Abdominal pain Acute Abdominal pain Acute Abdominal pain, chronic, right lower quadrant Acute Acute Crohn's disease Acute Altered mental status Acute Bronchitis Acute Constipation Acute Crohns disease Acute Crohns disease of small intestine Acute Fever Acute Intra-abdominal abscess Acute Malnutrition Acute Postoperative infection Acute Severe sepsis Acute Vomiting Acute
[2017-06-15] MEDS ORDERED: LORazepam 2 MG/ML INJ IVP ONE (08:56)
[2017-06-15] MEDS: POTASSIUM Cl (KCl) 20 MEQ in LR 1,000 ML IV SCH ×2 (09:22→14:58)
[2017-06-15] MEDS: FLUoxetine 20 MG CAP PO SCH (09:27)
[2017-06-15] MEDS: ENOXAPARIN 40 MG/0.4 ML SYR SC SCH (09:28)
[2017-06-15] MEDS: oxyCODONE IR 5 MG TAB PO SCH ×4 (09:28→18:05)
[2017-06-15] MEDS: PREGABALIN 50 MG CAP PO SCH ×2 (09:28→20:38)
[2017-06-15] MEDS: DICYCLOMINE 10 MG CAP PO SCH ×2 (09:28→20:38)
[2017-06-15] MEDS: levOFLOXACIN 500 MG/DEXTROSE 100 ML IV SCH (12:43)
[2017-06-15 15:32] LABS: PLATELET COUNT 440 10^3/uL (150-400)
--- NOTE | 2017-06-15 18:06 | GCON ---
[f rep st] CONSULTATION CONSULTING PHYSICIAN: Kassy Yee M.D. CONSULTING QUESTION: Hypertension management. HISTORY OF PRESENT ILLNESS: A 71-year-old female with a history of Crohn disease who underwent small bowel resection and ileostomy takedown. Since that time, she has developed abdominal pain. Imaging by CT confirms abdominal abscess. Patient is re-presenting for surgical management on 06/10/2017. Patria flaherty underwent exploratory laparotomy and lysis of adhesions, as well as revision of ileal colonic anastomosis. On my evaluation today, patient is denying any chest pain. Denies palpitations. Denies shortness of breath. Reports abdominal discomfort. Does feel mildly anxious in the hospital. Denies any nausea or vomiting. She did have some dry heaves and vomiting overnight. Patient is passing gas and stool s. PAST MEDICAL HISTORY: For this patient: 1. Crohn's. 2. Chronic pain. 3. Degenerative disk disease. 4. Depression. SOCIAL HISTORY: Patient is currently living with her daughter. Denies tobacco or alcohol use. Repo rts that she uses medical marijuana. FAMILY HISTORY: Positive for heart disease and lung cancer. REVIEW OF SYSTEMS: A 10-point review of systems is negative with the exception of that reported in t he HPI. PHYSICAL EXAMINATION: VITAL SIGNS: Blood pressure is 154/84, heart rate 122, respiratory rate 16, s aturating 93% on room air. Afebrile at 36.7. GENERAL: This is a thin-appearing female who is somno lent on my examination. HEENT: Notable for dry mucous membranes. Eye exam is negative for any icte andi. CARDIAC: Patient is tachycardic but regular. PULMONARY: Has diminished pulmonary effort but is c lear to auscultation bilaterally. GASTROINTESTINAL: Positive bowel sounds. ABDOMEN: Soft and mildly tender to palpation. No rebound or guarding is appreciated. MUSCULOSKELETAL: Negative for any lowe r extremity edema. SKIN: Negative for any rashes. NEUROLOGIC: She is somnolent on my exam. PSYCHIAT YADIEL: She is depressed on my exam. LABORATORY: White count 8.6, hematocrit 30.3, platelet count 368. Sodium 142, potassium 3.1, creati nine 0.6, magnesium 1.4. Abdominal x-ray which I personally reviewed and interpreted: Postsurgical clips are seen. No signifi cant bowel dilatation. ASSESSMENT AND PLAN: This is a 71-year-old female presenting for exploratory laparotomy, adhesion ly sis and anastomosis revision who has postoperative hypertension and tachycardia. 1. Hypertension. Patient does not have a history of elevated blood pressures in the past based on c wallace review and her reported history. Suspect the cause is likely related to anxiety and pain postop eratively. Patient systolic seemed to be ranging in the 140s to 160s at this time. I believe the use of a p.r.n. medication is appropriate if the patient's systolics are above 170. With her tachycardi a, would recommend the use p.r.n. beta chao, although I suspect as we move further along in our po stoperative course, continued use of an antihypertensive will not be likely. I have re-questioned th e patient about alcohol and other medication use in the home and she denies any substances she could be withdrawing from. Will continue to monitor with p.r.n. beta blockade again for systolics greater than 170. 2. Sinus tachycardia. Again withdrawal rises to the top of the list as possible postoperative cause s but the patient strongly denies any alcohol or other substance use in the home. Will treat with IV fluid bolus to rule out any hypovolemia postop and follow patient clinically if TSH. My suspicion for pulmonary embolism is low at this time as the patient is saturating well on room air wi thout any symptoms in her chest. Beta blockade use p.r.n. for hypertension can certainly assist altho ugh, again, if this is related to stress and/or pain, we should see improvement as she progresses pos toperatively. My concern for occult infection is also low. Patient does not have an elevation in he r white count and has not had fever during this hospital stay. Will continue to monitor. 3. Anxiety. Patient has been quite anxious based on nursing reports. Continue p.r.n. benzodiazepin e as written. 4. Status post exploratory laparoscopy with small-bowel resection. Patient is postoperative day #5. 5. Primary management per the surgical service. 6. Hypokalemia. Would continue aggressive potassium replacement. 7. Hypomagnesemia. Repleting magnesium will certainly assist with potassium repletion, continue as ordered. 8. Prophylaxis. Continue Lovenox. DIET: Currently clear liquid. DISPOSITION: Greater than 2 midnights if patient slowly progressing postoperatively. Discussed the case with the RN. Will give an IV fluid bolus now, follow heart rates post treatment. I will add a p .r.n. beta-chao to the patient's medication list. Her systolic blood pressure is greater than 170 . /[id number]/MODL
[2017-06-15] MEDS: oxyCODONE IR 5 MG TAB PO PRN (21:20)
[2017-06-16] MEDS: ONDANSETRON 4 MG/2 ML VIAL IVP PRN ×2 (01:04→18:05)
[2017-06-16] MEDS: LABETALOL HCL 5 MG/ML 20 ML MDV IVP PRN ×2 (03:11→18:20)
[2017-06-16] MEDS: LORazepam 1 MG TAB PO PRN ×2 (03:15→18:10)
[2017-06-16] MEDS: FLUoxetine 20 MG CAP PO SCH (08:47)
[2017-06-16] MEDS: PREGABALIN 50 MG CAP PO SCH ×2 (08:47→19:45)
[2017-06-16] MEDS: ENOXAPARIN 40 MG/0.4 ML SYR SC SCH (08:48)
[2017-06-16] MEDS: oxyCODONE IR 5 MG TAB PO SCH ×3 (08:48→17:21)
[2017-06-16] MEDS: DICYCLOMINE 10 MG CAP PO SCH ×2 (08:48→19:49)
--- NOTE | 2017-06-16 10:57 | SOAPPROG ---
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 Regular diet as tolerated S: Was feeling much improved last evening. Some nausea this am. Passing flatus O: Lying in bed sleeping but arousable Abdomen soft Incision cdi with wick of HFB Plan: 06/16/17 10:54 Objective: Vital Signs Temp Pulse Resp BP Pulse Ox 37.1 C 98 16 125/82 H 94 06/16/17 07:54 06/16/17 07:54 06/16/17 07:54 06/16/17 07:54 06/16/17 07:54 Laboratory Results 06/15/17 15:24 06/16/17 04:25 06/15/17 06/16/17 06/17/17 05:59 05:59 05:59 Intake Total 490 740 Output Total 800 550 Balance -310 190 ICD10 Worksheet Patient Problems: Problems Problem Status Onset Abdominal pain Acute Abdominal pain Acute Abdominal pain, chronic, right lower quadrant Acute Acute Crohn's disease Acute Altered mental status Acute Bronchitis Acute Constipation Acute Crohns disease Acute Crohns disease of small intestine Acute Fever Acute Intra-abdominal abscess Acute Malnutrition Acute Postoperative infection Acute Severe sepsis Acute Vomiting Acute
--- NOTE | 2017-06-16 15:17 | HOSPPROG ---
Hospitalist Progress Note Assessment/Plan: # Elevated blood pressures - suspect related to anxiety and pain - received one dose of labetalol IV overnight SBP 110's this am without treatment - continue to monitor - would not schedule any ongoing meds # Sinus tachycardia - TELE (personally reviewed and interpreted) sinus tachycardia no acute changes also improved overnight with hydration and pain control- oxygen saturations 95% on RA - taking increased PO - prn ativan - encourage ambulation # s/p exploratory lap and bowel resection - advancing diet per surgery - pt markedly improved today - encourage ambulation # sever protein calorie malnutrition - BMI 19 - needs increased nutritional support when tolerated # proph - lovenox # diet - advancing # dispo - per primary service I have discussed the case with surgery - pt improved today Subjective: feels much better Objective: Vital Signs Temp Pulse Resp BP Pulse Ox 37.2 C 106 H 19 114/65 92 06/16/17 11:07 06/16/17 11:07 06/16/17 11:07 06/16/17 11:07 06/16/17 11:07 Laboratory Results 06/15/17 15:24 06/16/17 04:25 06/15/17 06/16/17 06/17/17 05:59 05:59 05:59 Intake Total 490 740 Output Total 800 550 Balance -310 190 - Physical Exam Constitutional: cachectic Eyes: anicteric sclera Ears, Nose, Mouth, Throat: moist mucous membranes Cardiovascular: regular rate and rhythym, No tachycardia Respiratory: no respiratory distress Gastrointestinal: normoactive bowel sounds, No tenderness Genitourinary: no bladder fullness Skin: warm Musculoskeletal: No asymmetric calves Neurologic: AAOx3 Psychiatric: interacting appropriately Lymph, Heme, Immunologic: no cervical LAD ICD10 Worksheet Patient Problems: Problems Problem Status Onset Abdominal pain Acute Abdominal pain Acute Abdominal pain, chronic, right lower quadrant Acute Acute Crohn's disease Acute Altered mental status Acute Bronchitis Acute Constipation Acute Crohns disease Acute Crohns disease of small intestine Acute Fever Acute Intra-abdominal abscess Acute Malnutrition Acute Postoperative infection Acute Severe sepsis Acute Vomiting Acute
--- NOTE | 2017-06-16 18:28 | CPEKG ---
Heart Rate: 99 RR Interval: 606 P-R Interval: 136 QRSD Interval: 84 QT Interval: 388 QTC Interval: 498 P Chamberlain: 24 QRS Chamberlain: 63 T Wave Chamberlain: 57 EKG Severity - BORDERLINE ECG - EKG Impression: SINUS RHYTHM EKG Impression: BORDERLINE PROLONGED QT INTERVAL EKG Impression: COMPARED WITH 12/12/2016 QT INTERVAL NOW PROLONGED Electronically Signed By: Elise Campa 17-Jun-2017 13:36:40
--- NOTE | 2017-06-16 19:48 | HOSPPROG ---
Hospitalist Progress Note Assessment/Plan: 71 yo F w postop CP 1. ekg unchanges, non ischemic (interp by me) cycle trop 2. likely panioc attack given 1 mg ativan 3. htb: bp 180/110 prn labetalaol 35 crit care Subjective: CTSP as part of STAT team for cp, vomiting Objective: Vital Signs Temp Pulse Resp BP Pulse Ox 37.1 C 90 16 178/108 H 90 L 06/16/17 19:24 06/16/17 19:24 06/16/17 19:24 06/16/17 19:24 06/16/17 19:24 Laboratory Results 06/15/17 15:24 06/16/17 04:25 06/15/17 06/16/17 06/17/17 05:59 05:59 05:59 Intake Total 490 740 Output Total 800 550 Balance -310 190 - Physical Exam Constitutional: other (anxious) Eyes: PERRL, anicteric sclera Ears, Nose, Mouth, Throat: moist mucous membranes, hearing normal Cardiovascular: regular rate and rhythym, no murmur, rub, or gallop, No systolic murmur Respiratory: no respiratory distress, no rales or rhonchi Gastrointestinal: soft, non-tender abdomen, No guarding, No rebound Genitourinary: No au in urethra Skin: warm, normal color Neurologic: AAOx3 ICD10 Worksheet Patient Problems: Problems Problem Status Onset Abdominal pain Acute Abdominal pain Acute Abdominal pain, chronic, right lower quadrant Acute Acute Crohn's disease Acute Altered mental status Acute Bronchitis Acute Constipation Acute Crohns disease Acute Crohns disease of small intestine Acute Fever Acute Intra-abdominal abscess Acute Malnutrition Acute Postoperative infection Acute Severe sepsis Acute Vomiting Acute
[2017-06-16] MEDS: PROMETHAZINE HCL 25 MG/ML INJ IVP PRN (21:24)
[2017-06-17] MEDS: ONDANSETRON 4 MG/2 ML VIAL IVP PRN (00:23)
[2017-06-17] MEDS: LABETALOL HCL 5 MG/ML 20 ML MDV IVP PRN (01:54)
[2017-06-17] MEDS: PROMETHAZINE HCL 25 MG/ML INJ IVP PRN (04:55)
[2017-06-17] MEDS: LORazepam 1 MG TAB PO PRN (04:56)
[2017-06-17 05:06] LABS: PLATELET COUNT 476 10^3/uL (150-400)
[2017-06-17] MEDS: oxyCODONE IR 5 MG TAB PO PRN (07:11)
[2017-06-17] MEDS: PREGABALIN 50 MG CAP PO SCH ×3 (08:22→21:26)
[2017-06-17] MEDS: oxyCODONE IR 5 MG TAB PO SCH ×3 (08:22→17:50)
[2017-06-17] MEDS: FLUoxetine 20 MG CAP PO SCH (08:22)
[2017-06-17] MEDS: DICYCLOMINE 10 MG CAP PO SCH ×2 (08:22→21:26)
[2017-06-17] MEDS: ENOXAPARIN 40 MG/0.4 ML SYR SC SCH (08:23)
[2017-06-17] MEDS ORDERED: hydrALAZINE 10 MG TAB PO PRN (10:13)
--- NOTE | 2017-06-17 13:05 | SOAPPROG ---
SOAP Progress Note Assessment/Plan: Assessment/Plan: 71yo F s/p ex lap, lysis of adhesions and small bowel resection Nausea resolved today Return of bowel function Hypertension - appreciate hospitalist management Anxiety - patient states this is a new problem for her Wound care - change HFB ready in midline wound q3d Dispo: continue inpt until nausea controlled, CV stable. Seen with Dr. Yee S: No nausea today. anxiety attack last night. able to eat real food today. passing flatus and stool O: laying in bed, comfortable, NAD No increased WOB +BS, abd softly distended, nontender. Inc CDI - HFB changed Objective: Vital Signs Temp Pulse Resp BP Pulse Ox 36.9 C 99 18 99/65 L 95 06/17/17 11:32 06/17/17 11:32 06/17/17 11:32 06/17/17 11:32 06/17/17 11:32 Laboratory Results 06/17/17 04:21 06/17/17 04:21 06/16/17 06/17/17 06/18/17 05:59 05:59 05:59 Intake Total 740 Output Total 550 1100 500 Balance 190 -1100 -500 ICD10 Worksheet Patient Problems: Problems Problem Status Onset Abdominal pain Acute Abdominal pain Acute Abdominal pain, chronic, right lower quadrant Acute Acute Crohn's disease Acute Altered mental status Acute Bronchitis Acute Constipation Acute Crohns disease Acute Crohns disease of small intestine Acute Fever Acute Intra-abdominal abscess Acute Malnutrition Acute Postoperative infection Acute Severe sepsis Acute Vomiting Acute
[2017-06-17] MEDS ORDERED: NS 1,000 ML IV ONE (13:51)
[2017-06-17] MEDS ORDERED: LR 1,000 ML IV ONE (14:00)
--- NOTE | 2017-06-17 14:00 | HOSPPROG ---
Hospitalist Progress Note Assessment/Plan: # Acute Hypotension - SBP 60's 3 hours after receiving Hydralazine 10mg PO for SBP 190's Patient is light headed but mentating normally - dc all prn BP meds - tolerate HTN in this patient as suspect situational and clearly more dangerous to treat # Elevated blood pressures - suspect related to anxiety and pain - didn't respond to labetalol prn overnight SBP 180-190's this am - creatinine normal - continue to monitor - changed IV labetalol to PO hydralazine # Sinus tachycardia - TELE (personally reviewed and interpreted) sinus tachycardia no acute changes oxygen saturations 95% on RA - taking increased PO - prn ativan - encourage ambulation # s/p exploratory lap and bowel resection - advancing diet per surgery - pt markedly improved today - encourage ambulation # sever protein calorie malnutrition - BMI 19 - needs increased nutritional support when tolerated # proph - lovenox # diet - advancing # dispo - per primary service I have discussed the case with RN - we will bolus fluids now and officially leave HTN untreated going forward Subjective: nausea improved Objective: Vital Signs Temp Pulse Resp BP Pulse Ox 36.9 C 108 H 18 64/48 L 98 06/17/17 11:32 06/17/17 13:12 06/17/17 11:32 06/17/17 13:12 06/17/17 13:12 Laboratory Results 06/17/17 04:21 06/17/17 04:21 06/16/17 06/17/17 06/18/17 05:59 05:59 05:59 Intake Total 740 Output Total 550 1100 500 Balance 190 -1100 -500 - Physical Exam Constitutional: no apparent distress, cachectic Eyes: anicteric sclera Ears, Nose, Mouth, Throat: moist mucous membranes Cardiovascular: regular rate and rhythym Respiratory: no respiratory distress Gastrointestinal: normoactive bowel sounds Genitourinary: no bladder fullness Skin: warm Musculoskeletal: No asymmetric calves Neurologic: AAOx3 Psychiatric: agitated Lymph, Heme, Immunologic: no cervical LAD ICD10 Worksheet Patient Problems: Problems Problem Status Onset Abdominal pain Acute Abdominal pain Acute Abdominal pain, chronic, right lower quadrant Acute Acute Crohn's disease Acute Altered mental status Acute Bronchitis Acute Constipation Acute Crohns disease Acute Crohns disease of small intestine Acute Fever Acute Intra-abdominal abscess Acute Malnutrition Acute Postoperative infection Acute Severe sepsis Acute Vomiting Acute
[2017-06-17] MEDS ORDERED: HYDROmorphONE/DILAUDID 1 MG/ML INJ IVP PRN (15:03)
--- NOTE | 2017-06-18 08:09 | SOAPPROG ---
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 Anticipate dc in am S: Feeling improved. Passing flatus. No BM O: Lying in bed, awake Abdomen soft, BS present Incision cdi with wick of HFB CTAB RRR Plan: 06/16/17 10:54 06/18/17 08:08 Objective: Vital Signs Temp Pulse Resp BP Pulse Ox 36.8 C 85 19 103/67 93 06/18/17 07:51 06/18/17 07:51 06/18/17 07:51 06/18/17 07:51 06/18/17 07:51 Laboratory Results 06/17/17 04:21 06/17/17 04:21 06/17/17 06/18/17 06/19/17 05:59 05:59 05:59 Intake Total 300 Output Total 1100 1700 Balance -1100 -1400 ICD10 Worksheet Patient Problems: Problems Problem Status Onset Abdominal pain Acute Abdominal pain Acute Abdominal pain, chronic, right lower quadrant Acute Acute Crohn's disease Acute Altered mental status Acute Bronchitis Acute Constipation Acute Crohns disease Acute Crohns disease of small intestine Acute Fever Acute Intra-abdominal abscess Acute Malnutrition Acute Postoperative infection Acute Severe sepsis Acute Vomiting Acute
--- NOTE | 2017-06-18 08:31 | HOSPPROG ---
Hospitalist Progress Note Assessment/Plan: #Revision ileocolonic anastomosis/lysis of adhesions (06/15) #Tachycardia: resolved #Hypertension: holding BP meds with severe hypotension. Cont to monitor closely #Hypokalemia/hypomagnesium: repleted #Deconditioning: home care at DC #Disp: cont PT/OT. If stable in morn, can DC Subjective: no SOB. Mild dizziness with standing Objective: Vital Signs Temp Pulse Resp BP Pulse Ox 36.8 C 85 19 103/67 93 06/18/17 07:51 06/18/17 07:51 06/18/17 07:51 06/18/17 07:51 06/18/17 07:51 Laboratory Results 06/17/17 04:21 06/17/17 04:21 06/17/17 06/18/17 06/19/17 05:59 05:59 05:59 Intake Total 300 Output Total 1100 1700 Balance -1100 -1400 - Physical Exam Constitutional: no apparent distress Eyes: PERRL Ears, Nose, Mouth, Throat: moist mucous membranes, hearing normal Cardiovascular: regular rate and rhythym, no murmur, rub, or gallop Respiratory: no respiratory distress, no rales or rhonchi Gastrointestinal: normoactive bowel sounds, other (surgical incision CDI, no TTP ) Genitourinary: no bladder fullness, No au in urethra Skin: warm Musculoskeletal: full muscle strength Neurologic: AAOx3, CN II-XII Intact Psychiatric: anxious ICD10 Worksheet Patient Problems: Problems Problem Status Onset Abdominal pain Acute Abdominal pain Acute Abdominal pain, chronic, right lower quadrant Acute Acute Crohn's disease Acute Altered mental status Acute Bronchitis Acute Constipation Acute Crohns disease Acute Crohns disease of small intestine Acute Fever Acute Intra-abdominal abscess Acute Malnutrition Acute Postoperative infection Acute Severe sepsis Acute Vomiting Acute
[2017-06-18] MEDS: FLUoxetine 20 MG CAP PO SCH (09:02)
[2017-06-18] MEDS: oxyCODONE IR 5 MG TAB PO SCH ×3 (09:03→16:50)
[2017-06-18] MEDS: DICYCLOMINE 10 MG CAP PO SCH ×2 (09:03→20:35)
[2017-06-18] MEDS: ENOXAPARIN 40 MG/0.4 ML SYR SC SCH (09:03)
[2017-06-18] MEDS: PREGABALIN 50 MG CAP PO SCH ×3 (09:03→20:36)
[2017-06-18] MEDS: oxyCODONE IR 5 MG TAB PO PRN (11:04)
[2017-06-18] MEDS: LORazepam 1 MG TAB PO PRN (11:05)
--- NOTE | 2017-06-18 14:34 | ASMTCMCOM ---
CM Note CM Note Notes: Spoke w/pt re; dc poc. Pt living with daughter, will dc with [facility], CM confirmed with [place] supervisor photocomposition RN for [facility]. Needs SW for complex family situation. DC Plan: [facility] (RN/SW) Date Signed: 06/18/2017 02:35 PM Electronically Signed By:Martha Santacruz RN
[2017-06-19 05:04] LABS: PLATELET COUNT 504 10^3/uL (150-400)
[2017-06-19] MEDS: ONDANSETRON DISINTEGRATING 4 MG TAB PO PRN (05:16)
--- NOTE | 2017-06-19 08:05 | PDIAF ---
- Diagnosis Diagnosis: EC fistula Code Status: Full Code - Medication Management Discharge Medications: Medications to Continue on Transfer Dicyclomine [Bentyl 10 MG (*)] 10 mg PO BID 12/06/16 [Last Taken 06/09/17] FLUoxetine [Prozac 20 MG (*)] 60 mg PO DAILY 12/06/16 [Last Taken 06/09/17] LORazepam [Ativan (*)] 0.5 mg PO BID 12/06/16 [Last Taken 06/09/17] Acetamn/Diphenhydramine 500/25 [Tylenol PM (*)] 2 each PO HS PRN 03/28/17 [Last Taken 06/08/17] Pregabalin [Lyrica 50mg (*)] 100 mg PO TID 03/28/17 [Last Taken 06/09/17] oxyCODONE IR [Oxycodone Ir (*)] 5 mg PO BID@03/28/17 [Last Taken 06/09/17 17:00] Trolamine Salicylate [Aspercreme] 1 gautam TP DAILY PRN 06/10/17 [Last Taken Unknown] oxyCODONE IR [Oxycodone Ir (*)] 10 mg PO DAILY 06/10/17 [Last Taken 06/09/17] oxyCODONE IR [Oxycodone Ir (*)] 10 mg PO DAILY #40 tab 06/19/17 [Last Taken Unknown] Discharge Medications: Refer to the Discharge Home Medication list for PRN reason. - Orders Services needed: Home Care, Registered Nurse, [employer] Home Care Face to Face: I certify that this patient was under my care and that I had the required [id number] encounter meeting the encounter requirements on the discharge day. My findings support the fact that the patient is homebound as defined in Home Care Face to Face Continued: CMS Chapter 7 Medicare Benefits Manual 30.1.1 , The condition of the patient is such that there exists a normal inability to leave home and consequently, leaving home would require a considerable and taxing effort. Diet Recommendation: no restrictions on diet Diet Texture: Regular Texture Diet Wound Care Instructions: needs Hydrofera blue chaned every 3-5 days - Follow Up Care Current Providers and Referrals: Cherelle Welsh MD [Primary Care Provider] - Kassy Yee MD [Medical Doctor] - (next week to have your dressing changed)
[2017-06-19] MEDS: ENOXAPARIN 40 MG/0.4 ML SYR SC SCH (08:07)
[2017-06-19] MEDS: oxyCODONE IR 5 MG TAB PO SCH ×2 (08:08→11:48)
[2017-06-19] MEDS: FLUoxetine 20 MG CAP PO SCH (08:08)
[2017-06-19] MEDS: PREGABALIN 50 MG CAP PO SCH (08:09)
[2017-06-19] MEDS: DICYCLOMINE 10 MG CAP PO SCH (08:09)
[2017-06-19 08:36] VITALS: BP 90/60; PULSE 97; RESP 18; TEMP 98.9; O2SAT 94
--- NOTE | 2017-06-19 09:41 | PDDCSUM ---
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 She remained in the hospital for some time as she had tachycardia, abdominal pain and slow advancement of diet. On day of discharge, her abdomen is soft, she continues to tolerate regular diet having loose stools and was otherwise stable. Her pain was well controlled on oral narcotics in her anxiety was well controlled with oral anxiolytics. She was discharged home in stable condition on the morning of the . DISCHARGE MEDICATIONS All home medications were restarted, her oxycodone was refilled for pain control. DISPOSITION Home with home health FOLLOW UP Follow up with Dr. Yee in the next 1-2 weeks for routine follow-up.
--- NOTE | 2017-06-19 10:14 | ASMTCMCOM ---
CM Note CM Note Notes: Confirmed dc for pt today with [place] at [facility], orders in chart. Date Signed: 06/19/2017 10:13 AM Electronically Signed By:Martha Santacruz RN
--- NOTE | 2017-06-19 14:37 | ASDISCHSUM ---
Discharge Information Plan Status:Home with Home Health Medically Cleared to Leave: Discharge Date:06/19/2017 01:50 PM CM D/C Disposition:Home Health Service ADT D/C Disposition:Home Health Service Projected Discharge Date:06/19/2017 11:00 AM Transportation at D/C:Family Discharge Delay Reason: Follow-Up Date:06/19/2017 11:00 AM Discharge Slot: Final Diagnosis: Placement Information Referral Type:*Home Health Care Services Referral ID:[id number] Provider Name:[facility] Care Address 1:[address] Address 2: City:[place] Selection Factors: State:[place] Patient Contact Information Contact Name:JHOAN Relationship:Daughter Address:[address] Work Phone: [facility]:[place] Alternate Phone: State/Zip Code:[place] [address] Email: Financial Information Financial Class: Primary Plan Desc:MEDICARE INPATIENT Primary Plan Number:[id number] Secondary Plan Desc:MEDICA[place] Secondary Plan Number:[id number] Assessment Information [facility] CM Progress Note CM Note CM Note Notes: Chart reviewed. Patient post surgery. Slow improvement. No therapies ordered yet. Advanced to clears but poor tolerance. Note from spiritual care appreciated. Attempted to see patient but she was asleep. From the note it appears she has multiple problems. Needs to be determined. CM to follow. Date Signed: 06/12/2017 04:18 PM Electronically Signed By:Amelia Ross RN [facility] CM Progress Note CM Note CM Note Notes: Patient is not doing well and has severe nausea this morning. Patient's nurse states patient is also experiencing anxiety that is making her recovery slower. Initially looking at home care for d/c. Patient may need some SNF rehab according to the nurse. CM will follow. Date Signed: 06/14/2017 11:20 AM Electronically Signed By:Joselin Bowling LCSW [facility] CM Progress Note CM Note CM Note Notes: Spoke w/pt re; dc poc. Pt living with daughter, will dc with [facility] homecare, CM confirmed with [place] transportation associate RN for [facility]. Needs SW for complex family situation. DC Plan: [facility] (RN/SW) Date Signed: 06/18/2017 02:35 PM Electronically Signed By:Martha Santacruz RN [facility] CM Progress Note CM Note CM Note Notes: Confirmed dc for pt today with [place] at [facility], orders in chart. Date Signed: 06/19/2017 10:13 AM Electronically Signed By:Martha Santacruz RN Case Management Discharge Plan Note Case Management Discharge Discharge Order Complete? Answers: Yes Patient to Obtain Answers: Independently Medications Transportation Arranged Answers: Family/Friends Faxed Final Orders Answers: Yes Discharge Comments Notes: D/w RN, final orders faxed. [place] at [facility] notified, RN to leave report. Date Signed: 06/19/2017 10:15 AM Electronically Signed By:Martha Santacruz RN Intervention Information
--- NOTE | 2017-06-27 07:38 | GOP ---
[f rep st] OPERATIVE REPORT DATE OF OPERATION: 06/10/2017 SURGEON: Kassy Yee MD COMMUNICATIONS PROFESSIONAL: Sosa Ortiz, CHHAYA. ANESTHESIA: General. ANESTHESIOLOGIST: Elmo Gonzales MD. PREOPERATIVE DIAGNOSIS: Enterocutaneous fistula. POSTOPERATIVE DIAGNOSIS: Enterocutaneous fistula. PROCEDURE PERFORMED: 1. Exploratory laparotomy. 2. Lysis of adhesions. 3. Small bowel resection. FINDINGS: Extensive adhesions, enterocutaneous fistula. SPECIMENS: Small bowel. INDICATIONS: A 71-year-old, status post right hemicolectomy with entero and colostomy takedown, who developed an enterocutaneous fistula. She presents for repair. DESCRIPTION OF PROCEDURE: Patient was brought into the operating room, placed supine on the table, a nd general anesthesia was administered. Her abdomen was prepped and draped in the usual sterile fash ion. I made an incision to the left of the midline and dissected down through the subcutaneous tissu es. It became apparent, as I divided the fascia very carefully, that there were extensive adhesions. I then opened her midline incision. It took over an hour to perform adhesiolysis. I performed thi s with Metzenbaum scissors. It was very tedious. I was ultimately able to free the area of the ente rocutaneous fistula away from the surrounding peritoneum and fascia. I then continued to perform adh esiolysis to free several loops of small bowel as well as her transverse colon. Once the adhesiolysi s was performed, I was able to identify the proximal and distal portions of her bowel. I used a TANA stapler to transect each of these. I divided the mesentery with the Harmonic Scalpel. I aligned the colon and the small bowel on the antimesenteric borders, performing an enterotomy in each limb, and I passed a TANA 75 to create a [id number] functional end-to-end anastomosis. I closed the enterotom y with 3-0 Vicryl running, followed by 3-0 Vicryl pop-offs. Hemostasis was achieved. I performed ir rigation. I returned the bowel to the abdominal cavity. I closed her midline with #1 PDS. I closed the skin with heidy. I left a small opening where the previous site had been, and packed this wit h Hydrofera Blue. A dressing was applied. She was awakened in the operating room, extubated, transf erred to PACU in stable condition. /[id number]/MODL
== END 2017-06-19 13:50 | disposition home health service (06) | DRG 329 ==
LOC: F3N 07:54 → F3E 11:58
PROVIDERS: ADMIT Surgery; ATTEND Surgery
DX: K63.2 Fistula of intestine (principal); K66.0 Peritoneal adhesions (postprocedural) (postinfection); E87.6 Hypokalemia; E83.42 Hypomagnesemia; R00.0 Tachycardia, unspecified; E43 Unspecified severe protein-calorie malnutrition; Z68.1 Body mass index [BMI] 19.9 or less, adult; F41.9 Anxiety disorder, unspecified; K50.90 Crohn's disease, unspecified, without complications
CPT/HCPCS: 97110-GP; 97116-GP; 97162-GP; 97165-GO; 97530-GP; C9399; G8978-GP-CJ; G8979-GP-CI; G8980-GP-CI; G8987-GO-CI; G8988-GO-CI; G8989-GO-CI; J0360; J1170; J1650; J1885; J1956; J2060; J2250; J2405; J2550; J2704; J3490

== ENCOUNTER 2017-07-11 17:16 | Inpatient (IN) | payer OTHER, MEDICAID ==
--- NOTE | 2017-07-11 17:44 | EDPHY ---
H & P Time Seen by Provider: 07/11/17 17:19 HPI/ROS: Chief complaint. Abdominal pain HPI. 71-year-old female with history of multiple abdominal surgeries presents by EMS with abdominal pain and fever for 1 day. Pain is in the right side especially of her abdomen but she describes pain all the way across sharp. No radiation to back. No nausea or vomiting. Positive diarrhea. No chest pain or shortness of breath. Fever to 101 degrees. She has a history of Crohn's disease and had multiple bowel resections. She was admitted in May and had surgery for an intra-abdominal abscess. ROS Constitutional. Fever Eyes. no problems with vision ENT. no sore throat, no nasal drainage Cardiovascular. no chest pain Respiratory. no shortness of breath, no cough Abdominal. Abdominal pain with diarrhea . no problems urinating MS. no calf pain/swelling, no neck/back pain, no joint pain Skin. no rash Lymph. no swollen glands Neuro. no headache, no dizziness, no difficulty walking or with speech Past Medical/Surgical History: Depression, Crohn's disease, multiple abdominal surgeries, small-bowel obsess struck sanches, spine fusion, ileostomy and reversal Social History: Single, nonsmoker, no alcohol Smoking Status: Former smoker Physical Exam: General Appearance: Alert well-developed female moderate distress vital signs are stable. Currently afebrile Eyes:[ Pupils equal and round no pallor or injection]. ENT,[ Mouth: Mucous membranes are moist.] Respiratory: [There are no retractions, lungs are clear to auscultation.] Cardiovascular:[ Regular rate and rhythm.] Gastrointestinal: Abdomen is soft with tenderness especially on the right side of her abdomen. Slight distension. Normal bowel sounds. No masses Neurological: [Awake and alert, sensory and motor exams grossly normal.] Skin:[ Warm and dry, no rashes.] Musculoskeletal: [Neck is supple nontender.] Extremities [ symmetrical, full range of motion.] Psychiatric:[ Patient is oriented X 3, there is no agitation.] Constitutional: Initial Vital Signs Temperature (C) 36.9 C 07/11/17 17:19 Heart Rate 83 07/11/17 17:19 Respiratory Rate 18 07/11/17 17:19 Blood Pressure 122/73 H 07/11/17 17:19 O2 Sat (%) 99 07/11/17 17:19 O2 Delivery Mode Room Air Allergies/Adverse Reactions: fentanyl [Fentanyl] Allergy (Severe, Verified 06/10/17 13:43) MEMORY LOSS Penicillins Allergy (Severe, Verified 04/06/17 21:46) SEIZURES Sulfa (Sulfonamide Antibiotics) Allergy (Severe, Verified 04/06/17 21:46) NAUSEA azathioprine Allergy (Unknown, Verified 06/15/17 18:08) Rash budesonide Allergy (Unknown, Verified 06/15/17 18:08) Rash gabapentin Allergy (Unknown, Verified 06/15/17 18:08) Rash infliximab Allergy (Unknown, Verified 06/15/17 18:08) Itching mesalamine Allergy (Unknown, Verified 06/15/17 18:08) Rash morphine Allergy (Unknown, Verified 04/06/17 21:46) PT BECOMES "MEAN" tramadol [Tramadol] Allergy (Unknown, Verified 04/06/17 21:46) azathioprine sodium [From Imuran] Allergy (Verified 04/06/17 21:46) Rash cefuroxime [From Ceftin] Allergy (Verified 04/06/17 21:46) Other-Enter Comments ertapenem [From Invanz] Allergy (Verified 04/06/17 21:46) Other-Enter Comments azathioprine sodium Allergy (Unknown, Uncoded 04/06/17 21:46) Rash Home Medications: Medication Instructions Recorded Dicyclomine [Bentyl 10 MG (*)] 10 mg PO BID 12/06/16 FLUoxetine [Prozac 20 MG (*)] 60 mg PO DAILY 12/06/16 LORazepam [Ativan (*)] 0.5 mg PO ,12/06/16 Pregabalin [Lyrica 50mg (*)] 100 mg PO TID 03/28/17 oxyCODONE IR [Oxycodone Ir (*)] 5 mg PO BID@,03/28/17 Trolamine Salicylate [Aspercreme] 1 gautam TP DAILY PRN 06/10/17 oxyCODONE IR [Oxycodone Ir (*)] 10 mg PO DAILY 06/10/17 Acetaminophen [Tylenol ES 500 mg 1,000 mg PO DAILY PRN 07/11/17 (*)] Acetamn/Diphenhydramine 500/25 2 each PO HS PRN 07/11/17 [Tylenol PM (*)] Herbals/Supplements -Info Only 1 ea PO DAILY 07/11/17 Medical Decision Making - Diagnostics Imaging Results: Imaging Impressions Abdomen CT 07/11/17 17:54 Impression: Right anterior abdominal abscess with swelling of the transverse abdominis muscle versus stuck bowel. Recommend repeat CT of the abdomen and pelvis after copious oral contrast has been administered for a few hours. Results called and discussed with GWENDOLYN PHILLIPS, at 07/11/2017 19:27 If you have questions or comments about this report, please contact me at (hospital) or [phone] (cell). CT abdomen pelvis with IV contrast is suspicious for right-sided abscess. It is reviewed by me and discussed with Dr. Leblanc. Near the transverse abdominus muscle and next to a colon anastomosis there is an indurated area with air bubbles. No evidence for SBO, free air, free Procedures: IV normal saline. Dilaudid for pain. ED Course/Re-evaluation: Re-evaluation at 7:25 p.m.. Patient and I discussed imaging and lab results. We discussed treatment plan including recommendation for surgical consult. She expresses understanding and agreement I consulted and discussed the case with Dr. Doan, surgery who will see The patient in the emergency department Radiologist has recommended oral contrast and rescanning. I discussed this with Dr. Doan who agrees with this plan. She will be started on oral contrast Differential Diagnosis: Likely this patient has intra-abdominal abscess. She has had 1 about 1 month ago. Patient has had multiple intestinal surgeries and anastomoses. It appears that this may represent abscess near 1 of the anastomoses. - Data Points Laboratory Results: Laboratory Results 07/11/17 17:30 07/11/17 17:30 07/11/17 07/11/17 17:30 17:30 WBC 8.80 10^3/uL 10^3/uL (3.80-9.50) RBC 3.39 10^6/uL L 10^6/uL (4.18-5.33) Hgb 8.9 g/dL L g/dL (12.6-16.3) Hct 27.2 % L % (38.0-47.0) MCV 80.2 fL L fL (81.5-99.8) MCH 26.3 pg L pg (27.9-34.1) MCHC 32.7 g/dL g/dL (32.4-36.7) RDW 17.3 % H % (11.5-15.2) Plt Count 461 10^3/uL H 10^3/uL (150-400) MPV 9.8 fL fL (8.7-11.7) Neut % (Auto) 66.5 % % (39.3-74.2) Lymph % (Auto) 22.2 % % (15.0-45.0) [place] % (Auto) 8.2 % % (4.5-13.0) Eos % (Auto) 2.6 % % (0.6-7.6) Baso % (Auto) 0.3 % % (0.3-1.7) Nucleat RBC Rel Count 0.0 % % (0.0-0.2) Absolute Neuts (auto) 5.85 10^3/uL 10^3/uL (1.70-6.50) Absolute Lymphs (auto) 1.95 10^3/uL 10^3/uL (1.00-3.00) Absolute Monos (auto) 0.72 10^3/uL 10^3/uL (0.30-0.80) Absolute Eos (auto) 0.23 10^3/uL 10^3/uL (0.03-0.40) Absolute Basos (auto) 0.03 10^3/uL 10^3/uL (0.02-0.10) Absolute Nucleated RBC 0.00 10^3/uL 10^3/uL (0-0.01) Immature Gran % 0.2 % % (0.0-1.1) Immature Gran # 0.02 10^3/uL 10^3/uL (0.00-0.10) Sodium 141 mEq/L mEq/L (135-145) Potassium 4.4 mEq/L mEq/L (3.5-5.2) Chloride 101 mEq/L mEq/L (97-110) Carbon Dioxide 25 mEq/l mEq/l (22-31) Anion Gap 15 mEq/L mEq/L (8-16) BUN 20 mg/dL mg/dL (7-23) Creatinine 1.0 mg/dL mg/dL (0.6-1.0) Estimated GFR 55 Glucose 95 mg/dL mg/dL (70-100) Calcium 9.3 mg/dL mg/dL (8.5-10.4) Total Bilirubin < 0.1 mg/dL L mg/dL (0.1-1.4) Conjugated Bilirubin 0.1 mg/dL mg/dL (0.0-0.5) Unconjugated Bilirubin 0.0 mg/dL mg/dL (0.0-1.1) AST 14 IU/L IU/L (14-46) ALT 24 IU/L IU/L (9-52) Alkaline Phosphatase 66 IU/L IU/L (38-126) Total Protein 6.1 g/dL L g/dL (6.3-8.2) Albumin 3.7 g/dL g/dL (3.5-5.0) Lipase 83 IU/L IU/L (23-300) Medications Given: Hydromorphone HCl (Dilaudid) 0.5 mg IVP Q2HRS PRN PRN Reason: Pain, Severe Unable to Take PO Last Admin: 07/11/17 19:43 Dose: 0.5 mg Discontinued Medications Diatrizoate Meglum/Diatrizoate Sod (Gastroview 66-10 Soln) 30 ml PO EDNOW ONE Stop: 07/11/17 19:31 Last Admin: 07/11/17 20:14 Dose: Not Given Hydromorphone HCl (Dilaudid) 0.5 mg IVP EDNOW ONE Stop: 07/11/17 17:55 Last Admin: 07/11/17 18:26 Dose: 0.5 mg Sodium Chloride (Ns) 1,000 mls @ 0 mls/hr IV EDNOW ONE; Wide Open PRN Reason: Protocol Stop: 07/11/17 17:55 Last Admin: 07/11/17 18:00 Dose: 1,000 mls Departure - Departure Disposition: [facility] Inpatient Acute Clinical Impression: Abdominal pain Qualifiers: Abdominal location: right lower quadrant Qualified Code(s): R10.31 - Right lower quadrant pain Condition: Good
[2017-07-11] MEDS ORDERED: NS 1,000 ML IV ONE (17:54)
[2017-07-11] MEDS ORDERED: HYDROmorphONE/DILAUDID 1 MG/ML INJ IVP ONE (17:54)
[2017-07-11 18:06] LABS: PLATELET COUNT 461 10^3/uL (150-400)
[2017-07-11] MEDS ORDERED: IOPAMIDOL (ISOVUE-300) 100 ML BTL ONE (18:37)
[2017-07-11] MEDS ORDERED: GASTROVIEW 30 ML UNIT PO ONE (19:30)
[2017-07-11] MEDS: HYDROmorphONE/DILAUDID 1 MG/ML INJ IVP PRN ×2 (19:43→22:12)
--- NOTE | 2017-07-11 21:44 | SOAPPROG ---
SOAP Progress Note Assessment/Plan: Assessment: 71-year-old female with another admission for abdominal abscess. Patient is status post multiple abdominal surgeries for complications of Crohn's disease She presents with fever and tenderness in the right upper quadrant underneath the previous transverse incision. CT scan reveals a possible abscess in the area but no contrast was used At the present time patient is refusing any care other than pain medicine and does not want to consider another surgery HEENT nonicteric without adenopathy Chest clear Cor regular rhythm Abdomen soft slightly distended with very tender in the right upper quadrant underneath the transverse incision/positive bowel sounds/no hernia Extremities are benign with full range of motion full pulses Neuro intact and physiologic Psych alert cooperative oriented Skin exam reveals no major lesions Risks and options fully discussed/probable recurrent abdominal abscess Plan: Admit for pain control and IV antibiotics and if the patient is willing consider percutaneous drainage or incision and drainage of the tender area 07/11/17 21:40 Objective: Vital Signs Temp Pulse Resp BP Pulse Ox 37.9 C 84 16 129/72 H 91 L 07/11/17 21:29 07/11/17 21:29 07/11/17 21:29 07/11/17 21:29 07/11/17 21:29 07/10/17 07/11/17 07/12/17 05:59 05:59 05:59 Intake Total 1300 Balance 1300 ICD10 Worksheet Patient Problems: Problems Problem Status Onset Abdominal pain Acute Abdominal pain Acute Abdominal pain, chronic, right lower quadrant Acute Acute Crohn's disease Acute Altered mental status Acute Bronchitis Acute Constipation Acute Crohns disease Acute Crohns disease of small intestine Acute Fever Acute Intra-abdominal abscess Acute Malnutrition Acute Postoperative infection Acute Severe sepsis Acute Vomiting Acute
[2017-07-11] MEDS ORDERED: ONDANSETRON 4 MG/2 ML VIAL IVP PRN (21:47)
[2017-07-11] MEDS ORDERED: TROLAMINE SALICYLATE 85 GM CRTUBE TP PRN (21:48)
[2017-07-11] MEDS ORDERED: ACETAMINOPHEN 500 MG TAB PO PRN (21:48)
[2017-07-11] MEDS: D5W 1/2 NS W/ 20 KCl/L 1,000 ML IV SCH (22:12)
[2017-07-11] MEDS: ACETAMN/DIPHENHYDRAMINE 500/25MG TAB PO PRN (22:13)
[2017-07-11] MEDS: PREGABALIN 100 MG CAP PO SCH (22:13)
[2017-07-12] MEDS: HYDROmorphONE/DILAUDID 1 MG/ML INJ IVP PRN ×4 (04:32→18:36)
[2017-07-12 06:02] LABS: PLATELET COUNT 426 10^3/uL (150-400)
[2017-07-12] MEDS: D5W 1/2 NS W/ 20 KCl/L 1,000 ML IV SCH ×2 (07:44→22:10)
[2017-07-12] MEDS: oxyCODONE IR 5 MG TAB PO SCH ×3 (07:45→16:14)
[2017-07-12] MEDS: DICYCLOMINE 10 MG CAP PO SCH ×2 (07:45→20:16)
[2017-07-12] MEDS: LORazepam 0.5 MG TAB PO SCH ×2 (07:45→16:14)
[2017-07-12] MEDS: FLUoxetine 20 MG CAP PO SCH (07:45)
[2017-07-12] MEDS: PREGABALIN 100 MG CAP PO SCH ×3 (07:45→20:17)
--- NOTE | 2017-07-12 09:02 | SOAPPROG ---
SOAP Progress Note Assessment/Plan: Assessment/Plan: 71yo F with complicated surgical course due to Crohn's disease. Admitted with abdominal abscess Malnutrition Did not have oral contrast - repeat CT to evaluate anastomotic leak versus subQ abscess IV antibiotics Pain control Seen c Dr. Yee S: does not want any additional surgical procedures. Pain. Eating but has lost 9 lbs since last admission O: walking around in room, comfortable, NAD No increased WOB Midline wound healing well with HFB in place. No evidence of infection Abd with palpable mass right central abdomen, associated with previous surgical scar. No evidence of hernia. No overlying erythema or induration. Tender to palpation Objective: Vital Signs Temp Pulse Resp BP Pulse Ox 37.2 C 68 18 99/60 L 95 07/12/17 07:23 07/12/17 07:23 07/12/17 07:23 07/12/17 07:23 07/12/17 07:23 Laboratory Results 07/12/17 05:28 07/11/17 07/12/17 07/13/17 05:59 05:59 05:59 Intake Total 2201 Output Total 1060 Balance 1141 ICD10 Worksheet Patient Problems: Problems Problem Status Onset Abdominal pain Acute Abdominal pain Acute Abdominal pain, chronic, right lower quadrant Acute Acute Crohn's disease Acute Altered mental status Acute Bronchitis Acute Constipation Acute Crohns disease Acute Crohns disease of small intestine Acute Fever Acute Intra-abdominal abscess Acute Malnutrition Acute Postoperative infection Acute Severe sepsis Acute Vomiting Acute
[2017-07-12] MEDS ORDERED: IOPAMIDOL (ISOVUE-300) 100 ML BTL ONE (10:11)
--- NOTE | 2017-07-12 16:46 | ASMTCMCOM ---
CM Note CM Note Notes: Chart reviewed. Patient admitted with abscess She has had multiple abdominal surgeries. [facility] RN called and expressed concern about patient being at home. Plan of care uncertain at present. CM to follow. Date Signed: 07/12/2017 04:45 PM Electronically Signed By:Amelia Ross RN
[2017-07-12] MEDS ORDERED: LIDOCAINE 1% *Not for Epidural 20 ML MDV NB ONE (18:51)
[2017-07-12] MEDS: ACETAMN/DIPHENHYDRAMINE 500/25MG TAB PO PRN (20:17)
[2017-07-13] MEDS: D5W 1/2 NS W/ 20 KCl/L 1,000 ML IV SCH ×2 (06:16→18:32)
[2017-07-13] MEDS: HYDROmorphONE/DILAUDID 1 MG/ML INJ IVP PRN ×5 (08:16→18:16)
[2017-07-13] MEDS: PREGABALIN 100 MG CAP PO SCH ×3 (08:17→21:05)
[2017-07-13] MEDS: oxyCODONE IR 5 MG TAB PO SCH ×3 (08:17→18:09)
[2017-07-13] MEDS: DICYCLOMINE 10 MG CAP PO SCH ×2 (08:17→21:05)
[2017-07-13] MEDS: LORazepam 0.5 MG TAB PO SCH ×2 (08:17→14:36)
[2017-07-13] MEDS: FLUoxetine 20 MG CAP PO SCH (08:18)
--- NOTE | 2017-07-13 09:01 | SOAPPROG ---
SOAP Progress Note Assessment/Plan: Assessment/Plan: 71yo F with complicated surgical course due to Crohn's disease. Admitted with abdominal abscess s/p I&D abdominal wall abscess last night by Dr. Yee. Packing change daily ID consult today for antibiotic choice Severe malnutrition - dietary consulting stool sample d/t diarrhea Seen c Dr. Yee S: incisional pain but deep abdominal pain improved. Diarrhea O: laying in bed, comfortable, NAD No increased WOB Midline wound healing well with HFB in place. No evidence of infection RUQ mass less indurated, no erythema. 07/13/17 11:55 Objective: Vital Signs Temp Pulse Resp BP Pulse Ox 37.7 C 86 18 110/73 96 07/13/17 07:36 07/13/17 07:36 07/13/17 07:36 07/13/17 07:36 07/13/17 07:36 Laboratory Results 07/12/17 05:28 07/12/17 07/13/17 07/14/17 05:59 05:59 05:59 Intake Total 2201 3027 Output Total 1060 300 Balance 1141 2727 ICD10 Worksheet Patient Problems: Problems Problem Status Onset Abdominal pain Acute Abdominal pain Acute Abdominal pain, chronic, right lower quadrant Acute Acute Crohn's disease Acute Altered mental status Acute Bronchitis Acute Constipation Acute Crohns disease Acute Crohns disease of small intestine Acute Fever Acute Intra-abdominal abscess Acute Malnutrition Acute Postoperative infection Acute Severe sepsis Acute Vomiting Acute
[2017-07-13] MEDS ORDERED: MEROPENEM 1 GM in STERILE WATER INJ 20 ML IV SCH (11:00)
--- NOTE | 2017-07-13 11:55 | ASMTCMCOM ---
CM Note CM Note Notes: Patient has had a complicated surgical course due to her Crohn's Disease and was admitted with an abdominal abcess for this admission. ID is being consulted today for antibiotic choice. Left a message for patient's daughter to discuss home situation and D/C needs. Patient recently broke up with her life partner and at last admission in May she was living with her daughter. Patient had 8 inpatient admissions in 2017. D/C needs TBD. CM will follow. Date Signed: 07/13/2017 11:54 AM Electronically Signed By:Joselin Bowling LCSW
--- NOTE | 2017-07-13 15:22 | PCMIDPN ---
Assessment/Plan: Assessment/Plan: * Recurrent abdominal wall abscess: Recurrent abdominal wall abscess status post incision and drainage. Recurring nature of abdominal wall abscesses concerning for persistent intra-abdominal communication. Patient does not want further intra-abdominal surgery however. No culture data from current abscess to guide additional therapy. Last abscess grew Streptococcus anginosus and Bacteroides. Will begin levofloxacin adjusted for creatinine clearance and Flagyl for activity against anaerobic azam. If intra-abdominal etiology present, may need to consider long-term suppressive antibiotics. Underlying allergies complicate antibiotic use. Time spent with patient, 35 minutes, of which > 1/2 was spent in education and counseling/coordination of care regarding recurrent abdominal wall abscess and plan of care. Discussion with patient and Dr. Yee. 07/13/17 15:06 Subjective: Patient seen by our service in October/November 2016 with intra-abdominal sepsis/ abscess complicated by anaerobic bacteremia in the setting of anastomotic leak. Treated with long course of antibiotic therapy. Did develop encephalopathy which was attributed to ertapenem. Cultures from 05/13 showed growth from abscess of Streptococcus anginosus and Bacteroides. She has been packing left lower abdominal abscess with Hydrofera Blue and this is noted to be improving. Recently developed increasing pain, redness, warmth and tenderness along right lower abdominal wall. CT scan shows abscess formation in subcutaneous tissues of right lower abdominal wall. Some question of residual gas bubbles near anastomotic site. Patient does not desire additional intra-abdominal surgery and therefore only had I and D of subcutaneous tissues yesterday. Based on these findings, she is now seen for further infectious disease care. Objective: Vital Signs Temp Pulse Resp BP Pulse Ox 37.1 C 73 18 95/56 L 95 07/13/17 14:40 07/13/17 14:40 07/13/17 14:40 07/13/17 14:40 07/13/17 14:40 Microbiology 07/13/17 07:32 Gastrointestinal Tract Panel (PCR) - Final Stool No Organism Detected Laboratory Results 07/12/17 05:28 07/12/17 07/13/17 07/14/17 05:59 05:59 05:59 Intake Total 2201 3027 Output Total 1060 300 Balance 1141 2727 Tm 38.2 - Physical Exam General Appearance: alert, no apparent distress, thin, non-toxic EENT: No scleral icterus, No thrush Respiratory: lungs clear, No respiratory distress Cardiac/Chest: regular rate, rhythm Abdomen: other (Mild tenderness in right lower quadrant with packing in place; minimal surrounding erythema with some residual induration; left lower quadrant with no inflammatory changes and Hydrofera Blue packing in place) Neuro/Psych: alert ICD10 Worksheet Patient Problems: Problems Problem Status Onset Bronchitis Acute Malnutrition Acute Crohns disease Acute Intra-abdominal abscess Acute Abdominal pain, chronic, right lower quadrant Acute Crohns disease of small intestine Acute Abdominal pain Acute Acute Crohn's disease Acute Altered mental status Acute Severe sepsis Acute Abdominal pain Acute Vomiting Acute Constipation Acute Fever Acute Postoperative infection Acute
--- NOTE | 2017-07-13 16:47 | WOCRNPDOC ---
WOCRN Advanced Assessment Note - Skin Integrity Problem, Advanced Assess Lower Medial Abdomen Surgical Wound/Incision Dressing Type: Allevyn Life, Hydrofera Blue Exudate Amount: None Integumentary Issue Intervention: Dressing Changed Site Measurement - Head-to-Toe Length X Width X Depth (cm): 0.3x0.3x2.2 Skin Integrity Problem Comment: Tiny tunneling wound running toward 3 oclock. Cleaned with ns and gauze. HFB classic in wound bed and secured with Allevyn life. Right Lower Abdomen Dressing Type: Allevyn Life, Gauze Dressing Description: Clean/Dry, Intact Exudate Amount: Minimal Exudate Characteristic(s): Sanguinous Integumentary Issue Intervention: Dressing Changed Kenzie Wound Tissue: Erythema, Swollen, Painful/Tender Kenzie Wound Swelling: Mild Wound Bed Constitution: Undermining (1-3 oclock 0.5 cm ) Site Measurement - Head-to-Toe Length X Width X Depth (cm): 0.7x5x0.7 Skin Integrity Problem Comment: Cleaned with ns and gauze. HFB classic in wound bed and secured with Allevyn life.
[2017-07-13] MEDS: ACETAMN/DIPHENHYDRAMINE 500/25MG TAB PO PRN (21:05)
[2017-07-14] MEDS: PREGABALIN 100 MG CAP PO SCH ×3 (08:34→22:04)
[2017-07-14] MEDS: LORazepam 0.5 MG TAB PO SCH ×2 (08:34→15:23)
[2017-07-14] MEDS: FLUoxetine 20 MG CAP PO SCH (08:34)
[2017-07-14] MEDS: DICYCLOMINE 10 MG CAP PO SCH ×2 (08:34→22:04)
[2017-07-14] MEDS: oxyCODONE IR 5 MG TAB PO SCH ×3 (08:34→16:35)
[2017-07-14] MEDS: HYDROmorphONE/DILAUDID 1 MG/ML INJ IVP PRN ×2 (10:17→18:21)
--- NOTE | 2017-07-14 15:47 | PCMIDPN ---
Assessment/Plan: Recurrent abdominal wall abscess. Past cx with strep and bacteroides, s/p I&D at bedside couple days ago. US today shows SQ swelling, no intra-abdominal connection, no drainable focus. --discuss with Dr. Yee --could dc from ID standpoint on PO FQ + Flagyl x 13 more days - based on prior cultures. Cr Cl = 32 would dose levofloxacin 750mg PO every other day, orders changed in AUG and antibiotic warnings added to discharge paperwork. meds flagyl 500mg PO TID levofloxacin 750mg PO Q 2 D, #2 07/14/17 16:42 Subjective: patient worried about recurrence of infection no diarrhea no malaise no rash Objective: Vital Signs Temp Pulse Resp BP Pulse Ox 37.6 C 76 18 100/63 92 07/14/17 14:54 07/14/17 14:54 07/14/17 14:54 07/14/17 14:54 07/14/17 14:54 Microbiology 07/13/17 07:32 Gastrointestinal Tract Panel (PCR) - Final Stool No Organism Detected Laboratory Results 07/12/17 05:28 07/13/17 07/14/17 07/15/17 05:59 05:59 05:59 Intake Total 3027 275 Output Total 300 1000 Balance 5347 -725 - Physical Exam General Appearance: alert, no apparent distress, thin EENT: other (good dentition), No scleral icterus Respiratory: No accessory muscle use Neck: supple Cardiac/Chest: regular rate, rhythm, systolic murmur Abdomen: normal bowel sounds, non-tender, soft, other (R lateral abdominal superficial wound without surrounding erythema, mild induration and tenderness; midline smaller wound without erythema or purulence) Skin: No rash Neuro/Psych: alert, normal mood/affect, oriented x 3 - Time Spent With Patient Time Spent with Patient: greater than 35 minutes (imaging discussed with radiology; plan of care discussed with patient as decribed above.) Time Spent with Patient: Greater than 35 minutes spent on this patients care, greater than 50% of time spent counseling, educating, and coordinating care regarding the above mentioned plan. ICD10 Worksheet Patient Problems: Problems Problem Status Onset Abdominal pain Acute Abdominal pain Acute Abdominal pain, chronic, right lower quadrant Acute Acute Crohn's disease Acute Altered mental status Acute Bronchitis Acute Constipation Acute Crohns disease Acute Crohns disease of small intestine Acute Fever Acute Intra-abdominal abscess Acute Malnutrition Acute Postoperative infection Acute Severe sepsis Acute Vomiting Acute
--- NOTE | 2017-07-14 21:51 | SOAPPROG ---
SOAP Progress Note Assessment/Plan: Assessment: admitted for fever and abdominal pain Subcutaneous abscess s/p incision and drainage Still firm superior to incision will get ultrasound S: Appetite is good. Feeling Well Abdomen is soft. BS present. No erythema. Slightly firm above incision Plan: 07/14/17 21:50 Objective: Vital Signs Temp Pulse Resp BP Pulse Ox 37.6 C 76 18 100/63 92 07/14/17 14:54 07/14/17 14:54 07/14/17 14:54 07/14/17 14:54 07/14/17 14:54 Laboratory Results 07/12/17 05:28 07/13/17 07/14/17 07/15/17 05:59 05:59 05:59 Intake Total 3027 275 Output Total 300 1000 Balance 2727 -725 ICD10 Worksheet Patient Problems: Problems Problem Status Onset Abdominal pain Acute Abdominal pain Acute Abdominal pain, chronic, right lower quadrant Acute Acute Crohn's disease Acute Altered mental status Acute Bronchitis Acute Constipation Acute Crohns disease Acute Crohns disease of small intestine Acute Fever Acute Intra-abdominal abscess Acute Malnutrition Acute Postoperative infection Acute Severe sepsis Acute Vomiting Acute
[2017-07-14] MEDS: metroNIDAZOLE 500 MG TAB PO SCH (22:04)
[2017-07-14] MEDS: ACETAMN/DIPHENHYDRAMINE 500/25MG TAB PO PRN (22:10)
[2017-07-15] MEDS: metroNIDAZOLE 500 MG TAB PO SCH ×2 (05:29→13:50)
[2017-07-15 08:47] VITALS: BP 104/65; PULSE 68; RESP 16; TEMP 98.1; O2SAT 95
[2017-07-15] MEDS: LORazepam 0.5 MG TAB PO SCH ×2 (08:56→13:50)
[2017-07-15] MEDS: PREGABALIN 100 MG CAP PO SCH (08:56)
[2017-07-15] MEDS: oxyCODONE IR 5 MG TAB PO SCH ×2 (08:57→12:25)
[2017-07-15] MEDS: FLUoxetine 20 MG CAP PO SCH (08:58)
[2017-07-15] MEDS: DICYCLOMINE 10 MG CAP PO SCH (08:58)
[2017-07-15] MEDS: HYDROmorphONE/DILAUDID 1 MG/ML INJ IVP PRN (09:03)
[2017-07-15] MEDS ORDERED: HYDROmorphONE/DILAUDID 2 MG TAB PO PRN (09:39)
--- NOTE | 2017-07-15 09:55 | PDIAF ---
- Diagnosis Diagnosis: RUQ abd wall abscess Code Status: Do Not Resuscitate - Medication Management Discharge Medications: Medications to Continue on Transfer Dicyclomine [Bentyl 10 MG (*)] 10 mg PO BID 12/06/16 [Last Taken 06/09/17] FLUoxetine [Prozac 20 MG (*)] 60 mg PO DAILY 12/06/16 [Last Taken 07/11/17] LORazepam [Ativan (*)] 0.5 mg PO 12/06/16 [Last Taken 07/11/17] Pregabalin [Lyrica 50mg (*)] 100 mg PO TID 03/28/17 [Last Taken 07/11/17] Trolamine Salicylate [Aspercreme] 1 gautam TP DAILY PRN 06/10/17 [Last Taken Unknown] Acetaminophen [Tylenol ES 500 mg (*)] 1,000 mg PO DAILY PRN 07/11/17 [Last Taken 07/11/17] Acetamn/Diphenhydramine 500/25 [Tylenol PM (*)] 2 each PO HS PRN 07/11/17 [Last Taken Unknown] Herbals/Supplements -Info Only 1 ea PO DAILY 07/11/17 [Last Taken Unknown] HYDROmorphone HCL [Dilaudid 2 mg (*)] 2 mg PO Q6HRS PRN #20 tab 07/15/17 [Last Taken Unknown] levOFLOXACIN [levAQUIN (*)] 750 mg PO Q2D@1000 #6 tab 07/15/17 [Last Taken Unknown] metroNIDAZOLE [Flagyl 500 mg (*)] 500 mg PO Q8HRS #36 tab 07/15/17 [Last Taken Unknown] Discharge Medications: Refer to the Discharge Home Medication list for PRN reason. - Orders Services needed: Home Care, Registered Nurse, Physical Therapy Home Care Face to Face: I certify that this patient was under my care and that I had the required [id number] encounter meeting the encounter requirements on the discharge day. My findings support the fact that the patient is homebound as defined in Home Care Face to Face Continued: CMS Chapter 7 Medicare Benefits Manual 30.1.1 , The condition of the patient is such that there exists a normal inability to leave home and consequently, leaving home would require a considerable and taxing effort. Diet Recommendation: no restrictions on diet Diet Texture: Regular Texture Diet Wound Care Instructions: hydrofera blue traditional x 2 abdominal wall wounds to be changed 2x per week - Follow Up Care Current Providers and Referrals: Kassy Yee MD [Medical Doctor] - Cherelle Welsh MD [Primary Care Provider] - As per Instructions
--- NOTE | 2017-07-15 14:33 | ASDISCHSUM ---
Discharge Information Plan Status:Home with Home Health Medically Cleared to Leave: Discharge Date:07/15/2017 01:57 PM CM D/C Disposition:Home Health Service ADT D/C Disposition:Home, Routine, Self-Care Projected Discharge Date:07/15/2017 11:00 AM Transportation at D/C: Discharge Delay Reason: Follow-Up Date:07/15/2017 11:00 AM Discharge Slot: Final Diagnosis: Placement Information Referral Type:*Home Health Care Services Referral ID:[id number] Provider Name:[facility] Address 1:[address] [place] [address] Address 2: City:[place] Selection Factors: State:[place] Patient Contact Information Contact Name:JOAQUINA Relationship:Daughter Address:[address] Work Phone: [facility]:[place] Alternate Phone: [facility]/Zip Code:[place] [address] Email: Financial Information Financial Class: Primary Plan Desc:MEDICARE INPATIENT Primary Plan Number:[id number] Secondary Plan Desc:MEDICA[place] Secondary Plan Number:[id number] Assessment Information [facility] CM Progress Note CM Note CM Note Notes: Chart reviewed. Patient admitted with abscess She has had multiple abdominal surgeries. [facility] RN called and expressed concern about patient being at home. Plan of care uncertain at present. CM to follow. Date Signed: 07/12/2017 04:45 PM Electronically Signed By:Amelia Ross RN [facility] CM Progress Note CM Note CM Note Notes: Patient has had a complicated surgical course due to her Crohn's Disease and was admitted with an abdominal abcess for this admission. ID is being consulted today for antibiotic choice. Left a message for patient's daughter to discuss home situation and D/C needs. Patient recently broke up with her life partner and at last admission in May she was living with her daughter. Patient had 8 inpatient admissions in 2017. D/C needs TBD. CM will follow. Date Signed: 07/13/2017 11:54 AM Electronically Signed By:Joselin Bowling LCSW Case Management Discharge Plan Note Case Management Discharge Discharge Order Complete? Answers: Yes Patient to Obtain Answers: Other [facility] Transportation Arranged Answers: Other Notes: Medicaid [employer], but due to 4 hour delay [employer] given Faxed Final Orders Answers: Yes Notes: via [employer] to [facility] Discharge Comments Notes: Met w/ Pt. in room this am. Pt. good with d/c plan. Pt. d/c'ed today with homecare RN and PT through [facility]. Confirmed with Rubia at [facility]. Tried to set up Medicaid transport home via [employer]. Confirmation #: [id number]. Given a 2 hour window by [employer]. 4 hours later still no [facility] transport. [facility] decided to utilize [employer] voucher due to need for a bed on unit. Date Signed: 07/15/2017 02:32 PM Electronically Signed By:Shruthi Wells LCSW Intervention Information Intervention Type:*IM-Signed Date of Service:07/15/2017 11:43 AM Patient Type:Inpatient Staff Member:Miriam Ronquillo Hours: Discipline: Severity: Comment:
== END 2017-07-15 13:57 | disposition home health service (06) | DRG 579 ==
LOC: EDUNIT# → F3E 21:20
PROVIDERS: ADMIT Surgery; ATTEND Surgery
PROC: 0J980ZZ Drainage of Abdomen Subcutaneous Tissue and Fascia, Open Approach (ICD-10-PCS; principal; 2017-07-12)
DX: L02.211 Cutaneous abscess of abdominal wall (principal); K50.90 Crohn's disease, unspecified, without complications; E43 Unspecified severe protein-calorie malnutrition; Z66 Do not resuscitate
CPT/HCPCS: 96374; J1170; J1956; Q9967

== ENCOUNTER → 2017-08-30 | Outpatient (CLI) | payer OTHER, MEDICAID ==
[~2017-08-30] MED LIST changes: -GADOBUTROL 10 ML VIAL IVP ONE; -GLUCAGON,HUMAN RECOMBINANT 0.3 MG in SYRINGE 0.3 ML IVP ONE; +IOPAMIDOL (ISOVUE-300) 100 ML BTL ONE
== END ==
LOC: CIMAGING 10:34
PROVIDERS: ATTEND Surgery
DX: R10.11 Right upper quadrant pain (principal); R91.8 Other nonspecific abnormal finding of lung field; R93.8 Abnormal findings on diagnostic imaging of other specified body structures; R93.2 Abnormal findings on diagnostic imaging of liver and biliary tract; I86.2 Pelvic varices
CPT/HCPCS: 74177; Q9967

== ENCOUNTER 2017-09-09 05:15 | Inpatient (IN) | payer OTHER, MEDICAID ==
[2017-09-09] MEDS ORDERED: LR 1,000 ML IV ONE (05:55)
[2017-09-09] MEDS ORDERED: LIDOCAINE 1% 2 ML INJ ID PRN (05:55)
[2017-09-09] MEDS ORDERED: levOFLOXACIN 500 MG/DEXTROSE 100 ML IV ONE (06:00)
--- NOTE | 2017-09-09 06:59 | PDANEPAE ---
ANE History of Present Illness RUQ fluid collection ANE Past Medical History - Cardiovascular History Hx Hypertension: No Hx Arrhythmias: No Hx Chest Pain: No Hx Coronary Artery / Peripheral Vascular Disease: No Hx CHF / Valvular Disease: No Hx Palpitations: No Cardiovascular History Comment: labile BP - Pulmonary History Hx COPD: No Hx Asthma/Reactive Airway Disease: No Hx Recent Upper Respiratory Infection: No Hx Oxygen in Use at Home: No Hx Sleep Apnea: No Sleep Apnea Screening Result - Last Documented: Negative Pulmonary History Comment: quit smoking 2 cigs/day 03-28-17. "fluid in lungs- September while in ICU for sepsis" ? spot on lung - Neurologic History Hx Cerebrovascular Accident: No Hx Seizures: No Hx Dementia: No Neurologic History Comment: scoliosis-back and neck pain. - Endocrine History Hx Diabetes: No - Renal History Hx Renal Disorders: No - Liver History Hx Hepatic Disorders: No - Neurological & Psychiatric Hx Hx Neurological and Psychiatric Disorders: Yes Neurological / Psychiatric History Comment: ANXIETY, depression. - Cancer History Hx Cancer: No - Congenital Disorder History Hx Congenital Disorders: No - GI History Hx Gastrointestinal Disorders: Yes Gastrointestinal History Comment: CROHNS. 03/2017 EUA FOR IMPACTION WITH KIP. "ulcers found in upper and lower bowel", VIOLENT VOMITTING after feeding tube removed. No vomitting now. - Other Health History Other Health History: WEARS GLASSES - Chronic Pain History Chronic Pain: Yes (back,neck.) - Surgical History Prior Surgeries: 04/09/17 EUA WITH EVACUATION OF STOOL WITH KIP. BOWEL RESECTION. TUBAL LIGATION. CERVICAL SURG. BACK SURG FOR GROWTH ANE Review of Systems Review of Systems: - Exercise capacity METS (RN): 3 METS ANE Patient History - Allergies Allergies/Adverse Reactions: fentanyl [Fentanyl] Allergy (Severe, Verified 09/07/17 12:11) MEMORY LOSS Penicillins Allergy (Severe, Verified 09/07/17 12:10) SEIZURES Sulfa (Sulfonamide Antibiotics) Allergy (Severe, Verified 09/07/17 12:10) NAUSEA azathioprine Allergy (Unknown, Verified 09/07/17 12:10) Rash budesonide Allergy (Unknown, Verified 09/07/17 12:10) Rash gabapentin Allergy (Unknown, Verified 09/07/17 12:10) Rash infliximab Allergy (Unknown, Verified 09/07/17 12:10) Itching mesalamine Allergy (Unknown, Verified 09/07/17 12:10) Rash morphine Allergy (Unknown, Verified 09/07/17 12:10) PT BECOMES "MEAN" tramadol [Tramadol] Allergy (Unknown, Verified 09/07/17 12:10) azathioprine sodium [From Imuran] Allergy (Verified 09/07/17 12:10) Rash cefuroxime [From Ceftin] Allergy (Verified 09/07/17 12:10) Other-Enter Comments ertapenem [From Invanz] Allergy (Verified 09/07/17 12:10) Other-Enter Comments - Home Medications Home Medications: Dicyclomine [Bentyl 10 MG (*)] 10 mg PO BID 12/06/16 [Last Taken 09/08/17] FLUoxetine [Prozac 20 MG (*)] 60 mg PO DAILY 12/06/16 [Last Taken 09/08/17] LORazepam [Ativan (*)] 0.5 mg PO BID 12/06/16 [Last Taken 09/08/17] Pregabalin [Lyrica 50mg (*)] 100 mg PO TID 03/28/17 [Last Taken 09/08/17] Acetaminophen [Tylenol ES 500 mg (*)] 500 mg PO DAILY 07/11/17 [Last Taken 09/08] Acetamn/Diphenhydramine 500/25 [Tylenol PM (*)] 1 each PO HS PRN 07/11/17 [Last Taken 09/08/17] Cholecalciferol Vit D3 [Vitamin D3 (*)] 1,000 units PO DAILY 09/06/17 [Last Taken 09/08/17] Lidocaine [Lidoderm] 1 each TP DAILY PRN 09/06/17 [Last Taken 09/08/17] Multivitamins [Multivitamin (*)] 1 each PO DAILY 09/06/17 [Last Taken 09/08/17] oxyCODONE IR [Oxycodone Ir (*)] 5 mg PO DAILY@13 09/06/17 [Last Taken 09/08/17] oxyCODONE IR [Oxycodone Ir (*)] 10 mg PO BID 09/06/17 [Last Taken 09/08/17] - NPO status NPO Since - Liquids (Date): 09/08/17 NPO Since - Liquids (Time): 00:00 NPO Since - Solids (Date): 09/07/17 NPO Since - Solids (Time): 12:00 - Anes Hx Anes Hx: no prior problems - Smoking Hx Smoking Status: Former smoker - Family Anes Hx Family Hx Anesthesia Complications: NEG ANE Labs/Vital Signs - Vital Signs Blood Pressure: 114/62 Heart Rate: 80 Respiratory Rate: 16 O2 Sat (%): 93 Height: 157.48 cm Weight: 44.452 kg ANE Physical Exam - Airway Neck exam: decreased ROM Mallampati Score: Class 2 Mouth exam: normal dental/mouth exam - Pulmonary Pulmonary: no respiratory distress - Cardiovascular Cardiovascular: regular rate and rhythym - ASA Status ASA Status: II ANE Anesthesia Plan Anesthesia Plan: general endotracheal anesthesia
[2017-09-09] MEDS ORDERED: HYDROmorphONE/DILAUDID 2 MG/ML INJ ONE ×2 (07:10→11:44)
[2017-09-09] MEDS ORDERED: KETAMINE 200 MG/20 ML VIAL ONE (07:10)
[2017-09-09] MEDS ORDERED: MIDAZOLAM 2 MG/2 ML VIAL IVP ONE ×2 (07:11→12:30)
[2017-09-09] MEDS ORDERED: PROPOFOL 200 MG/20 ML VIAL ONE (07:11)
--- NOTE | 2017-09-09 07:18 | PDHPUP ---
History & Physical Update H&P update statement: This history and physical update is based on an assessment of the patient which was completed after admission or registration (within 24 hours), but prior to the surgery/procedure. H&P update: H&P reviewed & patient examined, no change in patient's condition since H&P completed
[2017-09-09] MEDS ORDERED: BUPIVACAINE 0.25% 30 ML SDV ONE (07:45)
[2017-09-09] MEDS ORDERED: DEXAMETHASONE 4 MG/ML VIAL ONE (07:54)
[2017-09-09] MEDS ORDERED: ONDANSETRON 4 MG/2 ML VIAL ONE (07:54)
[2017-09-09] MEDS ORDERED: ROCURONIUM 50 MG/5 ML VIAL ONE ×2 (07:55→09:31)
[2017-09-09] MEDS ORDERED: LIDOCAINE 2% 5 ML SDV ONE ×2 (07:55→10:19)
[2017-09-09] MEDS ORDERED: PHENYLEPHRINE HCL 100 MCG/ML SYR ONE (07:55)
[2017-09-09] MEDS ORDERED: ONDANSETRON 4 MG/2 ML VIAL IVP PRN ×2 (11:03→11:15)
[2017-09-09] MEDS ORDERED: NALOXONE HCL 0.4 MG/ML INJ IVP PRN ×2 (11:03→17:16)
[2017-09-09] MEDS ORDERED: PROMETHAZINE HCL 25 MG/ML INJ IVP PRN ×2 (11:03→17:18)
--- NOTE | 2017-09-09 11:13 | POSTOPPROG ---
Post Op Note Date of Operation: 09/09/17 Surgeon: Kassy Yee Environmental Designer: deny Anesthesiologist: benoit Anesthesia: GET(General Endotracheal) Pre-op Diagnosis: RUQ abdominal wall abscess Post-op Diagnosis: enterocutaneous fistula, adhesions Indication: 71yo F with draining wound RUQ, h/o EC fistula and crohn's Procedure: ex lap with lysis of adhesions and sb resection, handsewn end-to-end anasto Findings: extensive adhesions, EC fistula at previous anastomosis Inf/Abcess present in the surg proc area at time of surgery?: Yes Depth: Deep Incisional (Fascial) EBL: 50-100 Specimen(s): tissue for path and culture abd wall abscess fluid for culture
[2017-09-09] MEDS ORDERED: ONDANSETRON DISINTEGRATING 4 MG TAB PO PRN (11:15)
[2017-09-09] MEDS ORDERED: diphenhydrAMINE 25 MG CAP PO PRN (11:15)
[2017-09-09] MEDS ORDERED: HYDROmorphone HCL/NS 0.5 MG/ML SYR IVP PRN (11:15)
[2017-09-09] MEDS: HYDROmorphONE/DILAUDID 2 MG/ML INJ IVP PRN ×5 (11:46→12:43)
--- NOTE | 2017-09-09 11:50 | POSTANESTH ---
Post Anesthetic Evaluation Cardiovascular Status: Similar to Pre-Op Cond Respiratory Status: Similar to Pre-op Cond. Level of Consciousness/Mental Status: Alert and Oriented Pain Control: Inadeq, Add Tx Required Nausea/Vomiting Control: Adequate, Prn Tx Ordered Complications Possibly Related to Anesthesia: None Noted
[2017-09-09] MEDS ORDERED: MIDAZOLAM 2 MG/2 ML VIAL ONE (12:22)
[2017-09-09] MEDS: NS 1,000 ML IV SCH (14:04)
--- NOTE | 2017-09-09 16:37 | PDMN ---
Medical Necessity Medical necessity: Pt meets IP criteria, [facility] IP only surgery, CPT 22260 Bowel Surgery
--- NOTE | 2017-09-09 17:11 | PCMIDPN ---
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 Gram stain shows no organisms with cultures pending. Multiple antibiotic allergies. Will treat with levofloxacin and metronidazole which she has tolerated previously pending culture data. Risk does exist for resistant pathogens as she has received this regimen in the past. Levofloxacin adjusted for creatinine clearance of approximately 39. 09/09/17 17:05 Subjective: Asked by Dr. Yee to assist with patient's ongoing management. Patient seen by our service last in June of 2017 with right upper quadrant abdominal wall abscess. At that time did not want additional abdominal surgery. readmitted for incision and drainage of right upper quadrant abdominal wall abscess as well as colocutaneous fistula with partial colon resection and reanastomosis. Gram stain of specimens obtained intraoperatively shows white blood cells with no organisms. Patient given dose of levofloxacin and metronidazole around time of procedure. Patient notes chronic drainage prior to admission. Was not having fever or chills. Multiple antibiotic allergies which she has difficulty further characterizing today. Past medical/ past surgical /allergies reviewed. Ertapenem associated with encephalopathy, penicillins associated with seizures, and sulfonamides associated with nausea. Cefuroxime also listed although reaction unclear. Objective: Vital Signs Temp Pulse Resp BP Pulse Ox 37.4 C 77 12 113/66 95 09/09/17 15:50 09/09/17 15:50 09/09/17 15:50 09/09/17 15:50 09/09/17 15:50 Microbiology 09/09/17 07:56 Gram Stain - Final Abdomen - Other 09/09/17 08:45 Gram Stain - Final Abdomen - Tissue 09/08/17 09/09/17 09/10/17 05:59 05:59 05:59 Intake Total 1900 Balance 1900 Status post levofloxacin 500 mg x1 status post metronidazole 500 mg x1 - Physical Exam General Appearance: alert, apparent distress (Related to pain after surgery) EENT: No scleral icterus, No thrush Respiratory: lungs clear, No respiratory distress Cardiac/Chest: regular rate, rhythm Abdomen: tender, other ( postoperative dressing in place), No distended ICD10 Worksheet Patient Problems: Problems Problem Status Onset Bronchitis Acute Malnutrition Acute Crohns disease Acute Intra-abdominal abscess Acute Abdominal pain, chronic, right lower quadrant Acute Crohns disease of small intestine Acute Abdominal pain Acute Acute Crohn's disease Acute Altered mental status Acute Severe sepsis Acute Abdominal pain Acute Vomiting Acute Constipation Acute Fever Acute Postoperative infection Acute
[2017-09-09] MEDS: LIDOCAINE 4%/MENTHOL 1% PATCH TD SCH (18:10)
--- NOTE | 2017-09-09 19:53 | SOAPPROG ---
SOAP Progress Note Assessment/Plan: Assessment: POD # 0 s/p ex lap with colon resection and anastomosis nausea and vomiting Will add phenergan and lidoderm patch VSS Will monitor Plan: 09/09/17 19:52 Objective: Vital Signs Temp Pulse Resp BP Pulse Ox 37.3 C 84 28 H 177/89 H 100 09/09/17 16:50 09/09/17 19:18 09/09/17 19:18 09/09/17 19:18 09/09/17 19:18 Microbiology 09/09/17 07:56 Gram Stain - Final Abdomen - Other 09/09/17 08:45 Gram Stain - Final Abdomen - Tissue 09/08/17 09/09/17 09/10/17 05:59 05:59 05:59 Intake Total 1900 Output Total 250 Balance 1650 ICD10 Worksheet Patient Problems: Problems Problem Status Onset Abdominal pain Acute Abdominal pain Acute Abdominal pain, chronic, right lower quadrant Acute Acute Crohn's disease Acute Altered mental status Acute Bronchitis Acute Constipation Acute Crohns disease Acute Crohns disease of small intestine Acute Fever Acute Intra-abdominal abscess Acute Malnutrition Acute Postoperative infection Acute Severe sepsis Acute Vomiting Acute
[2017-09-09] MEDS: HYDROmorphONE/DILAUDID 6 MG/30 ML PCA IV PRN (19:54)
--- NOTE | 2017-09-09 22:37 | GOP ---
[f rep st] OPERATIVE REPORT DATE OF OPERATION: 09/09/2017 SURGEON: Kassy Yee MD CASTING OPERATOR HELPER: CHHAYA Alexandre I also asked Dr. Denis Doan into the OR for his advice and opinion. ANESTHESIA: General. ANESTHESIOLOGIST: Remy Zavaleta MD PREOPERATIVE DIAGNOSIS: Colocutaneous fistula. POSTOPERATIVE DIAGNOSIS: Colocutaneous fistula. PROCEDURE PERFORMED: 1. Exploratory laparotomy with over 2 hours of lysis of adhesions. 2. Repair of enterotomy. 3. Colon resection with primary anastomosis. FINDINGS: Colocutaneous fistula, abscess, friable tissue. SPECIMENS: Fistula tissue for culture, purulent fluid for culture, and colon resection. EBL: 150 cc INDICATIONS: The patient is a 71-year-old woman, with Crohn disease. She has had 2 bowel resections, 1 requiring ostomy. She had ostomy takedown and then subsequently had revision of that. Over a month after her last surgery, she started draining creamy fluid from her abdominal wall. Initial CT did not show fistula. She was admitted to the hospital. Incision and drainage was performed. She was packing the wound. It improved dramatically but then picked up. Repeat CT scan which showed evidence of a colocutaneous fistula. DESCRIPTION OF PROCEDURE: Patient was brought into the operating room, placed supine on the table, and general anesthesia was administered. Her abdomen was prepped and draped in the usual sterile fashion. I infiltrated all sites with 0.5% Marcaine prior to making incisions. I made an ellipse around the area of concern on her right abdomen. I extended the incision laterally to try to find a free space to enter her abdomen and I carefully dissected down through the subcutaneous tissues. I used a lacrimal probe to identify the direction of the fistula. It did not appear to be very deep. I identified the fascia and opened this up. I immediately encountered bowel. I performed over 2 hours of adhesiolysis, which is at least an hour and a half longer than expected for a similar case. At the site of the previous anastomosis was a small fistual and abscess cavity. I sampled the abdominal wall and abscess for micro. I continued to perform dissection, the small bowel from the colon. At one point, there was a small enterotomy which was repaired with 3-0 vicryl. After dissection was performed, clearing the adhesions away from the scar as well as the midline scar, I could see the area which appeared to be the old side -to-side anastomosis. I asked my colleague, Dr. Denis Doan, to come in the operating room to evaluate the same area and for a second set of eyes confirming the proximal and distal loops as her anatomy is not straight forward due to her previous bowel resections and multiple adhesions. I could show that the fistula connections each went proximal and distal and the limbs connected with each other as well. I selected the points of transection proximally and distally, divided the mesentery with the Harmonic Scalpel. I placed bowel clamps on each of the limbs of the colon and I cut the bowel sharply. I performed a hand sewn 2 layer anastomosis with Vicryl. The lumen was patent. Suction irrigation was performed. I then placed AmnioFix over the wound AS21- [id number], expiration May 27, 2022. I then found a piece of omentum and buttressed this over the repair as well. Clean closure was performed with 0 PDS, skin closed with heidy. A dressing was applied. She was awakened in the operating room, extubated, transferred to PACU in stable condition. /[id number]/MODL MTDD
[2017-09-10] MEDS: PATCH REMOVAL 1 EA PATCH TD SCH ×2 (00:20→21:55)
[2017-09-10] MEDS ORDERED: NS 500 ML IV ONE (01:24)
[2017-09-10] MEDS: NS 1,000 ML IV SCH ×2 (01:47→14:39)
[2017-09-10] MEDS ORDERED: NS BOLUS 500 ML (Wide open) IV ONE (02:00)
[2017-09-10 05:46] LABS: PLATELET COUNT 366 10^3/uL (150-400)
[2017-09-10] MEDS: LORazepam 2 MG/ML INJ IVP PRN ×2 (07:58→21:44)
[2017-09-10] MEDS: HYDROmorphONE/DILAUDID 6 MG/30 ML PCA IV PRN ×2 (08:00→21:53)
[2017-09-10] MEDS: LIDOCAINE 4%/MENTHOL 1% PATCH TD SCH (09:54)
--- NOTE | 2017-09-10 12:02 | ASMTCMCOM ---
CM Note CM Note Notes: Pt. is a 71-year-old woman with multiple admissions and abdominal surgeries with a complicated course. Pt. w/ hx. small bowel resection due to Crohns and ileostomy takedown. Hx. depression per H&P. Per last admission notes, Pt. lives with her daughter and had [facility] for homecare with RN and PT for d/c on 07/15/17. CM to confirm if Pt. still open with [facility]. This admission's d/c plan is TBD at this time. Date Signed: 09/10/2017 12:01 PM Electronically Signed By:Shruthi Wells LCSW
--- NOTE | 2017-09-10 15:16 | SOAPPROG ---
SOAP Progress Note Assessment/Plan: Assessment: POD # 1 s/p ex lap with colon resection and anastomosis Awaiting bowel function to return Sips and chips S: Nausea improved. Pain better o: Dressing cdi BS present soft ctab RRR Plan: 09/09/17 19:52 09/10/17 15:15 Objective: Vital Signs Temp Pulse Resp BP Pulse Ox 37.2 C 77 14 103/62 98 09/10/17 14:00 09/10/17 14:00 09/10/17 14:00 09/10/17 14:00 09/10/17 14:00 Microbiology 09/09/17 08:45 Gram Stain - Final Abdomen - Tissue 09/09/17 07:56 Gram Stain - Final Abdomen - Other Laboratory Results 09/10/17 05:25 09/10/17 05:25 09/09/17 09/10/17 09/11/17 05:59 05:59 05:59 Intake Total 3521 Output Total 250 Balance 3271 ICD10 Worksheet Patient Problems: Problems Problem Status Onset Abdominal pain Acute Abdominal pain Acute Abdominal pain, chronic, right lower quadrant Acute Acute Crohn's disease Acute Altered mental status Acute Bronchitis Acute Constipation Acute Crohns disease Acute Crohns disease of small intestine Acute Fever Acute Intra-abdominal abscess Acute Malnutrition Acute Postoperative infection Acute Severe sepsis Acute Vomiting Acute
--- NOTE | 2017-09-10 15:53 | PCMIDPN ---
Assessment/Plan: Assessment/Plan: * Right upper quadrant abdominal wall abscess with colocutaneous fistula status post incision and drainage and colon resection with end-to-end anastomosis: Cultures no growth to date. Continue empiric levofloxacin and metronidazole with adjustment in accordance with cultures. Follow clinical response postoperatively. 09/10/17 15:52 Subjective: Patient feels improved with less abdominal pain. Objective: Vital Signs Temp Pulse Resp BP Pulse Ox 37.2 C 77 14 103/62 98 09/10/17 14:00 09/10/17 14:00 09/10/17 14:00 09/10/17 14:00 09/10/17 14:00 Microbiology 09/09/17 08:45 Gram Stain - Final Abdomen - Tissue 09/09/17 07:56 Gram Stain - Final Abdomen - Other Laboratory Results 09/10/17 05:25 09/10/17 05:25 09/09/17 09/10/17 09/11/17 05:59 05:59 05:59 Intake Total 3521 Output Total 250 Balance 3271 Levofloxacin/metronidazole # 2 Operative cultures no growth today - Physical Exam General Appearance: alert, no apparent distress, thin EENT: No scleral icterus, No thrush Respiratory: lungs clear, No respiratory distress Cardiac/Chest: regular rate, rhythm Abdomen: non-tender, No distended ICD10 Worksheet Patient Problems: Problems Problem Status Onset Abdominal pain Acute Abdominal pain Acute Abdominal pain, chronic, right lower quadrant Acute Acute Crohn's disease Acute Altered mental status Acute Bronchitis Acute Constipation Acute Crohns disease Acute Crohns disease of small intestine Acute Fever Acute Intra-abdominal abscess Acute Malnutrition Acute Postoperative infection Acute Severe sepsis Acute Vomiting Acute
[2017-09-11 05:19] LABS: PLATELET COUNT 335 10^3/uL (150-400)
[2017-09-11] MEDS: NS 1,000 ML IV SCH ×2 (06:54→23:27)
[2017-09-11] MEDS ORDERED: LIDOCAINE TP PRN (09:40)
[2017-09-11] MEDS: HYDROmorphONE/DILAUDID 6 MG/30 ML PCA IV PRN (10:32)
[2017-09-11] MEDS: LIDOCAINE 4%/MENTHOL 1% PATCH TD SCH (10:38)
--- NOTE | 2017-09-11 13:04 | SOAPPROG ---
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 Passing flatus o: Dressing cdi BS present soft ctab RRR Plan: 09/09/17 19:52 09/10/17 15:15 09/11/17 13:03 Objective: Vital Signs Temp Pulse Resp BP Pulse Ox 37.1 C 84 18 120/73 93 09/11/17 11:38 09/11/17 11:38 09/11/17 11:38 09/11/17 11:38 09/11/17 11:38 Microbiology 09/09/17 08:45 Gram Stain - Final Abdomen - Tissue 09/09/17 07:56 Gram Stain - Final Abdomen - Other Laboratory Results 09/11/17 04:57 09/11/17 04:57 09/10/17 09/11/17 09/12/17 05:59 05:59 05:59 Intake Total 3521 1971 Output Total 250 Balance 3271 1970 ICD10 Worksheet Patient Problems: Problems Problem Status Onset Abdominal pain Acute Abdominal pain Acute Abdominal pain, chronic, right lower quadrant Acute Acute Crohn's disease Acute Altered mental status Acute Bronchitis Acute Constipation Acute Crohns disease Acute Crohns disease of small intestine Acute Fever Acute Intra-abdominal abscess Acute Malnutrition Acute Postoperative infection Acute Severe sepsis Acute Vomiting Acute
[2017-09-11] MEDS: FLUoxetine 20 MG CAP PO SCH (13:40)
[2017-09-11] MEDS: LORazepam 2 MG/ML INJ IVP PRN ×2 (14:20→18:43)
--- NOTE | 2017-09-11 16:43 | PCMIDPN ---
Assessment/Plan: Assessment/Plan: * Right upper quadrant abdominal wall abscess with colocutaneous fistula status post incision and drainage and colon resection with end-to-end anastomosis: Cultures remain negative to date. Continue empiric levofloxacin and metronidazole with adjustment in accordance with cultures. Operative findings reviewed with Dr. Yee with abscess being localized to subcutaneous tissues. Based on this finding and excision of fistula, anticipate short duration of therapy such as 7 days. Transition to oral once patient taking p.o. intake well. 09/11/17 16:40 Subjective: Patient is sleepy related to pain medications. Notes that she passed gas earlier today. Objective: Vital Signs Temp Pulse Resp BP Pulse Ox 37.6 C 93 16 105/59 L 91 L 09/11/17 16:00 09/11/17 16:00 09/11/17 16:00 09/11/17 16:00 09/11/17 16:00 Microbiology 09/09/17 08:45 Gram Stain - Final Abdomen - Tissue 09/09/17 07:56 Gram Stain - Final Abdomen - Other Laboratory Results 09/11/17 04:57 09/11/17 04:57 09/10/17 09/11/17 09/12/17 05:59 05:59 05:59 Intake Total 3521 1971 Output Total 250 Balance 3271 1971 Levofloxacin/metronidazole # 3 Operative cultures no growth - Physical Exam General Appearance: alert, no apparent distress, thin EENT: No scleral icterus, No thrush Respiratory: lungs clear, No respiratory distress Cardiac/Chest: regular rate, rhythm Abdomen: tender (Diffusely), No distended ICD10 Worksheet Patient Problems: Problems Problem Status Onset Abdominal pain Acute Abdominal pain Acute Abdominal pain, chronic, right lower quadrant Acute Acute Crohn's disease Acute Altered mental status Acute Bronchitis Acute Constipation Acute Crohns disease Acute Crohns disease of small intestine Acute Fever Acute Intra-abdominal abscess Acute Malnutrition Acute Postoperative infection Acute Severe sepsis Acute Vomiting Acute
[2017-09-11] MEDS: oxyCODONE IR 5 MG TAB PO SCH ×2 (16:49→21:00)
[2017-09-11] MEDS: PREGABALIN 50 MG CAP PO SCH ×2 (16:49→21:00)
[2017-09-11] MEDS: LORazepam 0.5 MG TAB PO SCH (21:00)
[2017-09-11] MEDS: DICYCLOMINE 10 MG CAP PO SCH (21:00)
[2017-09-11] MEDS: PATCH REMOVAL 1 EA PATCH TD SCH (21:05)
[2017-09-12] MEDS ORDERED: FLUoxetine 20 MG CAP PO SCH (09:00)
[2017-09-12] MEDS: oxyCODONE IR 5 MG TAB PO SCH ×3 (10:09→22:17)
[2017-09-12] MEDS: DICYCLOMINE 10 MG CAP PO SCH ×2 (10:09→22:19)
[2017-09-12] MEDS: FLUoxetine 20 MG CAP PO SCH (10:10)
[2017-09-12] MEDS: LORazepam 0.5 MG TAB PO SCH ×2 (10:10→22:18)
[2017-09-12] MEDS: PREGABALIN 50 MG CAP PO SCH ×3 (10:10→22:19)
[2017-09-12] MEDS: LIDOCAINE 4%/MENTHOL 1% PATCH TD SCH (10:11)
--- NOTE | 2017-09-12 10:25 | SOAPPROG ---
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 S: No nausea or vomiting. Pain with activity. Having urinary incontinence occasionally. O: laying in bed, comfortable, NAD No increased WOB, CTAB RRR +BS, abd soft. Dressing intact without staining (recently changed) 09/12/17 10:25 Objective: Vital Signs Temp Pulse Resp BP Pulse Ox 37.6 C 98 18 132/70 H 92 09/12/17 09:56 09/12/17 09:56 09/12/17 09:56 09/12/17 09:56 09/12/17 09:56 Microbiology 09/09/17 08:45 Gram Stain - Final Abdomen - Tissue 09/09/17 07:56 Gram Stain - Final Abdomen - Other Laboratory Results 09/11/17 04:57 09/11/17 04:57 09/11/17 09/12/17 09/13/17 05:59 05:59 05:59 Intake Total 2271 Output Total 4 Balance 2267 ICD10 Worksheet Patient Problems: Problems Problem Status Onset Abdominal pain Acute Abdominal pain Acute Abdominal pain, chronic, right lower quadrant Acute Acute Crohn's disease Acute Altered mental status Acute Bronchitis Acute Constipation Acute Crohns disease Acute Crohns disease of small intestine Acute Fever Acute Intra-abdominal abscess Acute Malnutrition Acute Postoperative infection Acute Severe sepsis Acute Vomiting Acute
--- NOTE | 2017-09-12 13:21 | PCMIDPN ---
Assessment/Plan: Assessment: Right upper quadrant abdominal wall fluid collection. Status post incision and drainage. Cultures are negative thus far. Patient is currently on Levaquin and Flagyl IV. She is taking decent p. o. currently and we will switch her antibiotics to oral form today. Plan: 1. Transition Levaquin and Flagyl to oral form. Today's day 4. 2. Plan on a 7 day total duration. 09/12/17 14:11 Subjective: Patient is resting in her hospital bed. She has multiple complaints centered around her ill health over the last 1 year secondary to her flare of Crohn's disease. There are no other significant acute issues. No fevers or chills. Objective: Levaquin # 4 Metronidazole # 4 Vital Signs Temp Pulse Resp BP Pulse Ox 37.3 C 103 H 18 109/70 91 L 09/12/17 11:56 09/12/17 11:56 09/12/17 11:56 09/12/17 11:56 09/12/17 11:56 Microbiology 09/09/17 08:45 Gram Stain - Final Abdomen - Tissue 09/09/17 07:56 Gram Stain - Final Abdomen - Other Laboratory Results 09/11/17 04:57 09/11/17 04:57 09/11/17 09/12/17 09/13/17 05:59 05:59 05:59 Intake Total 2271 Output Total 4 Balance 2267 - Physical Exam General Appearance: WD/WN, alert, no apparent distress, thin, non-toxic Respiratory: lungs clear, normal breath sounds, No respiratory distress Cardiac/Chest: regular rate, rhythm, No tachycardia Extremities: non-tender, normal inspection Skin: normal color, warm/dry, No rash Neuro/Psych: alert, normal mood/affect, oriented x 3 ICD10 Worksheet Patient Problems: Problems Problem Status Onset Abdominal pain Acute Abdominal pain Acute Abdominal pain, chronic, right lower quadrant Acute Acute Crohn's disease Acute Altered mental status Acute Bronchitis Acute Constipation Acute Crohns disease Acute Crohns disease of small intestine Acute Fever Acute Intra-abdominal abscess Acute Malnutrition Acute Postoperative infection Acute Severe sepsis Acute Vomiting Acute
[2017-09-12] MEDS: HYDROmorphONE/DILAUDID 6 MG/30 ML PCA IV PRN (14:28)
[2017-09-12] MEDS: metroNIDAZOLE 500 MG TAB PO SCH (22:19)
[2017-09-12] MEDS: PATCH REMOVAL 1 EA PATCH TD SCH (22:19)
[2017-09-13] MEDS: metroNIDAZOLE 500 MG TAB PO SCH ×3 (05:47→21:01)
[2017-09-13] MEDS: DICYCLOMINE 10 MG CAP PO SCH ×2 (09:00→21:01)
[2017-09-13] MEDS: PREGABALIN 50 MG CAP PO SCH ×4 (09:00→21:01)
[2017-09-13] MEDS: oxyCODONE IR 5 MG TAB PO SCH (09:00)
[2017-09-13] MEDS: FLUoxetine 20 MG CAP PO SCH (09:00)
[2017-09-13] MEDS: LORazepam 0.5 MG TAB PO SCH ×2 (09:01→21:01)
[2017-09-13] MEDS: LIDOCAINE 4%/MENTHOL 1% PATCH TD SCH (09:05)
[2017-09-13] MEDS ORDERED: BISACODYL 10 MG SUPP PR PRN (12:40)
[2017-09-13] MEDS ORDERED: LACTULOSE 20 GM/30 ML UDCUP PO PRN (12:40)
[2017-09-13] MEDS ORDERED: MAGNESIUM HYDROXIDE 30 ML UDCUP PO PRN (12:40)
[2017-09-13] MEDS ORDERED: POLYETHYLENE GLYCOL 3350 17 GM PKT PO PRN (12:40)
[2017-09-13] MEDS ORDERED: ACETAMINOPHEN 325 MG TAB PO PRN (12:43)
[2017-09-13] MEDS: oxyCODONE IR 5 MG TAB PO PRN ×2 (13:01→18:33)
[2017-09-13] MEDS ORDERED: IBUPROFEN 600 MG TAB PO SCH (14:00)
[2017-09-13] MEDS ORDERED: IBUPROFEN 600 MG TAB PO PRN (14:24)
--- NOTE | 2017-09-13 15:14 | SOAPPROG ---
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 likely 1-2 more days. S: No nausea or vomiting. Pain with activity. urinary incontinence improving. still with low energy O: laying in bed, comfortable, NAD No increased WOB, CTAB RRR +BS, abd soft. R abdominal incision CDI heidy intact, no eo infection Objective: Vital Signs Temp Pulse Resp BP Pulse Ox 37.4 C 92 16 84/48 L 99 09/13/17 14:00 09/13/17 14:00 09/13/17 14:00 09/13/17 14:00 09/13/17 14:00 Microbiology 09/09/17 07:56 Gram Stain - Final Abdomen - Other 09/09/17 08:45 Gram Stain - Final Abdomen - Tissue Laboratory Results 09/11/17 04:57 09/11/17 04:57 09/12/17 09/13/17 09/14/17 05:59 05:59 05:59 Intake Total 2271 1900 Output Total 4 550 Balance 2267 1350 ICD10 Worksheet Patient Problems: Problems Problem Status Onset Abdominal pain Acute Abdominal pain Acute Abdominal pain, chronic, right lower quadrant Acute Acute Crohn's disease Acute Altered mental status Acute Bronchitis Acute Constipation Acute Crohns disease Acute Crohns disease of small intestine Acute Fever Acute Intra-abdominal abscess Acute Malnutrition Acute Postoperative infection Acute Severe sepsis Acute Vomiting Acute
--- NOTE | 2017-09-13 15:47 | PCMIDPN ---
Assessment/Plan: #Superficial abdominal wall abscess s/p surgical revision, cx negative. No signs of infection on exam. WBC normal couple days ago, AF. Bowel sounds present + flatus --Empiric antibiotics levofloxacin + Flagyl Abx through Aug edited. --CrCl 48, decrease dose levoflox 750g to q 48hours. --Call ID for additional questions. #Multiple abx allergies Meds flagyl 500mg PO TID levoflox 750mg PO Daily micro 09/09 surgical abscess tissue and fluid: Gram stain PMNs, no org; Cx NGTD Subjective: c/o of R sided abdominal pain radiating to back. Notes surgery team adjusted meds Objective: Vital Signs Temp Pulse Resp BP Pulse Ox 37.4 C 80 16 81/45 L 98 09/13/17 15:40 09/13/17 15:40 09/13/17 15:40 09/13/17 15:40 09/13/17 15:40 Microbiology 09/09/17 07:56 Gram Stain - Final Abdomen - Other 09/09/17 08:45 Gram Stain - Final Abdomen - Tissue Laboratory Results 09/11/17 04:57 09/11/17 04:57 09/12/17 09/13/17 09/14/17 05:59 05:59 05:59 Intake Total 2271 1900 Output Total 4 550 Balance 2267 1350 Gen: appears quite well, younger than stated age HEENT: excellent dentition CV: RRR Chest: shallow inspiration, decreased bs bases Abd: +BS present to slightly hyperactive, R abdominal incision healing well without drainage or erythema, mild discomfort to palpation R side Ext : no edema Skin : no rash ICD10 Worksheet Patient Problems: Problems Problem Status Onset Abdominal pain Acute Abdominal pain Acute Abdominal pain, chronic, right lower quadrant Acute Acute Crohn's disease Acute Altered mental status Acute Bronchitis Acute Constipation Acute Crohns disease Acute Crohns disease of small intestine Acute Fever Acute Intra-abdominal abscess Acute Malnutrition Acute Postoperative infection Acute Severe sepsis Acute Vomiting Acute
--- NOTE | 2017-09-13 17:07 | ASMTCMCOM ---
CM Note CM Note Notes: Pt current with [facility] for RN/PT services. [facility] provided with updates. OT currently recommending SNF. PT has been unable to work with pt due to increased back pain. CM will continue to follow to determine dc needs. Date Signed: 09/13/2017 05:06 PM Electronically Signed By:Merly Price RN
[2017-09-13] MEDS: TROLAMINE SALICYLATE 85 GM CRTUBE TP SCH ×2 (18:30→21:02)
[2017-09-13] MEDS: SENNOSIDES/DOCUSATE SODIUM TAB PO SCH (21:01)
[2017-09-13] MEDS: PATCH REMOVAL 1 EA PATCH TD SCH (22:07)
[2017-09-14] MEDS: metroNIDAZOLE 500 MG TAB PO SCH ×3 (05:10→20:49)
[2017-09-14 05:36] LABS: PLATELET COUNT 378 10^3/uL (150-400)
--- NOTE | 2017-09-14 08:37 | SOAPPROG ---
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 Likely due to immobility and post-op atelectasis. Encouraged IS, ambulation and sitting upright in chair rather than supine in bed Regular diet with ensure Dietary following for malnutrition Antibiotics per ID - appreciate recs PT/OT Continue home meds Dispo: continue inpt until return of bowel function and pain controlled. likely 1-2 more days. S: No nausea or vomiting. Pain better controlled this morning. Has more energy this morning. Willing to sit up in chair O: laying in bed, comfortable, NAD No increased WOB, no respiratory distress. Decreased at bases bilaterally RRR +BS, abd soft. R abdominal incision CDI heidy intact, no e/o infection Objective: Vital Signs Temp Pulse Resp BP Pulse Ox 36.4 C 66 16 106/59 L 98 09/14/17 04:00 09/14/17 04:00 09/14/17 04:00 09/14/17 04:00 09/14/17 04:00 Microbiology 09/09/17 07:56 Gram Stain - Final Abdomen - Other Laboratory Results 09/14/17 05:20 09/14/17 05:20 09/13/17 09/14/17 09/15/17 05:59 05:59 05:59 Intake Total 1900 400 Output Total 550 200 Balance 1350 200 ICD10 Worksheet Patient Problems: Problems Problem Status Onset Abdominal pain Acute Abdominal pain Acute Abdominal pain, chronic, right lower quadrant Acute Acute Crohn's disease Acute Altered mental status Acute Bronchitis Acute Constipation Acute Crohns disease Acute Crohns disease of small intestine Acute Fever Acute Intra-abdominal abscess Acute Malnutrition Acute Postoperative infection Acute Severe sepsis Acute Vomiting Acute
[2017-09-14] MEDS: FLUoxetine 20 MG CAP PO SCH (09:34)
[2017-09-14] MEDS: DICYCLOMINE 10 MG CAP PO SCH ×2 (09:35→20:49)
[2017-09-14] MEDS: LORazepam 0.5 MG TAB PO SCH ×2 (09:36→20:48)
[2017-09-14] MEDS: PREGABALIN 50 MG CAP PO SCH ×3 (09:36→20:49)
[2017-09-14] MEDS: SENNOSIDES/DOCUSATE SODIUM TAB PO SCH ×2 (09:37→20:51)
[2017-09-14] MEDS: LIDOCAINE 4%/MENTHOL 1% PATCH TD SCH (09:38)
[2017-09-14] MEDS: TROLAMINE SALICYLATE 85 GM CRTUBE TP SCH ×3 (09:44→20:49)
[2017-09-14] MEDS: oxyCODONE IR 5 MG TAB PO PRN (14:58)
[2017-09-14] MEDS: PATCH REMOVAL 1 EA PATCH TD SCH (20:50)
[2017-09-15] MEDS: NS 1,000 ML IV SCH (00:21)
[2017-09-15] MEDS: metroNIDAZOLE 500 MG TAB PO SCH (05:24)
[2017-09-15 07:14] VITALS: BP 114/66; PULSE 78; RESP 12; TEMP 99.1; O2SAT 99
--- NOTE | 2017-09-15 07:19 | SOAPPROG ---
SOAP Progress Note Assessment/Plan: Assessment: POD # 2 s/p ex lap with colon resection and anastomosis Severe protein calorie malnutrition. 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 Her daughter would prefer her to go to her house S: No nasuea. Passing flatus o: Dressing cdi BS present soft ctab RRR Plan: 18 19:52 09/10/17 15:15 09/11/17 13:03 09/15/17 07:17 Objective: Vital Signs Temp Pulse Resp BP Pulse Ox 37.3 C 78 12 114/66 99 09/15/17 07:14 09/15/17 07:14 09/15/17 07:14 09/15/17 07:14 09/15/17 07:14 Microbiology 09/09/17 07:56 Gram Stain - Final Abdomen - Other Laboratory Results 09/14/17 05:20 09/14/17 05:20 09/14/17 09/15/17 09/16/17 05:59 05:59 05:59 Intake Total 400 1300 Output Total 200 700 Balance 200 600 ICD10 Worksheet Patient Problems: Problems Problem Status Onset Abdominal pain Acute Abdominal pain Acute Abdominal pain, chronic, right lower quadrant Acute Acute Crohn's disease Acute Altered mental status Acute Bronchitis Acute Constipation Acute Crohns disease Acute Crohns disease of small intestine Acute Fever Acute Intra-abdominal abscess Acute Malnutrition Acute Postoperative infection Acute Severe sepsis Acute Vomiting Acute
[2017-09-15] MEDS: DICYCLOMINE 10 MG CAP PO SCH (08:53)
[2017-09-15] MEDS: PREGABALIN 50 MG CAP PO SCH (08:54)
[2017-09-15] MEDS: LORazepam 0.5 MG TAB PO SCH (08:54)
[2017-09-15] MEDS: FLUoxetine 20 MG CAP PO SCH (08:54)
[2017-09-15] MEDS: LIDOCAINE 4%/MENTHOL 1% PATCH TD SCH (08:55)
[2017-09-15] MEDS: TROLAMINE SALICYLATE 85 GM CRTUBE TP SCH (08:55)
[2017-09-15] MEDS: SENNOSIDES/DOCUSATE SODIUM TAB PO SCH (08:56)
--- NOTE | 2017-09-15 09:12 | SOAPPROG ---
SOAP Progress Note Assessment/Plan: Assessment: s/p ex lap with colon resection and anastomosis Severe protein calorie malnutrition. 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 Feeling better o: Dressing cdi BS present soft ctab RRR Plan: 09/09/17 19:52 09/10/17 15:15 09/11/17 13:03 09/15/17 07:17 09/15/17 09:11 Objective: Vital Signs Temp Pulse Resp BP Pulse Ox 37.3 C 78 12 114/66 99 09/15/17 07:14 09/15/17 07:14 09/15/17 07:14 09/15/17 07:14 09/15/17 07:14 Microbiology 09/09/17 07:56 Gram Stain - Final Abdomen - Other Laboratory Results 09/14/17 05:20 09/14/17 05:20 09/14/17 09/15/17 09/16/17 05:59 05:59 05:59 Intake Total 400 1300 Output Total 200 700 Balance 200 600 ICD10 Worksheet Patient Problems: Problems Problem Status Onset Abdominal pain Acute Abdominal pain Acute Abdominal pain, chronic, right lower quadrant Acute Acute Crohn's disease Acute Altered mental status Acute Bronchitis Acute Constipation Acute Crohns disease Acute Crohns disease of small intestine Acute Fever Acute Intra-abdominal abscess Acute Malnutrition Acute Postoperative infection Acute Severe sepsis Acute Vomiting Acute
--- NOTE | 2017-09-15 09:13 | PDIAF ---
- Diagnosis Diagnosis: chrons, protein calorie malnutrition, bowel resection Code Status: Full Code - Medication Management Discharge Medications: Medications to Continue on Transfer Dicyclomine [Bentyl 10 MG (*)] 10 mg PO BID 12/06/16 [Last Taken 09/08/17] FLUoxetine [Prozac 20 MG (*)] 60 mg PO DAILY 12/06/16 [Last Taken 09/08/17] LORazepam [Ativan (*)] 0.5 mg PO BID 12/06/16 [Last Taken 09/08/17] Pregabalin [Lyrica 50mg (*)] 100 mg PO TID 03/28/17 [Last Taken 09/08/17] Acetaminophen [Tylenol ES 500 mg (*)] 500 mg PO DAILY 07/11/17 [Last Taken 09/08] Acetamn/Diphenhydramine 500/25 [Tylenol PM (*)] 1 each PO HS PRN 07/11/17 [Last Taken 09/08/17] Cholecalciferol Vit D3 [Vitamin D3 (*)] 1,000 units PO DAILY 09/06/17 [Last Taken 09/08/17] Lidocaine [Lidoderm] 1 each TP DAILY PRN 09/06/17 [Last Taken 09/08/17] Multivitamins [Multivitamin (*)] 1 each PO DAILY 09/06/17 [Last Taken 09/08/17] oxyCODONE IR [Oxycodone Ir (*)] 5 mg PO DAILY@13 09/06/17 [Last Taken 09/08/17] oxyCODONE IR [Oxycodone Ir (*)] 10 mg PO BID 09/06/17 [Last Taken 09/08/17] Acetaminophen [Tylenol 325mg (*)] 650 mg PO Q6 PRN tab 09/15/17 [Last Taken Unknown] oxyCODONE IR [Oxycodone Ir (*)] 5 - 10 mg PO Q4HRS PRN #30 tab 09/15/17 [Last Taken Unknown] Discharge Medications: Refer to the Discharge Home Medication list for PRN reason. - Orders Services needed: Home Care, Registered Nurse, Physical Therapy, Occupational Therapy, Speech Language Pathologist Home Care Face to Face: I certify that this patient was under my care and that I had the required arbs-en-tuel encounter meeting the encounter requirements on the discharge day. My findings support the fact that the patient is homebound as defined in Home Care Face to Face Continued: CMS Chapter 7 Medicare Benefits Manual 30.1.1 , The condition of the patient is such that there exists a normal inability to leave home and consequently, leaving home would require a considerable and taxing effort. Diet Recommendation: low fiber Diet Texture: Regular Texture Diet, Thin Liquids, Meds Whole w/Liquids Wound Care Instructions: may shower Date to Remove Sutures/[place]: 09/23/17 Activity/Weight Bearing Restrictions: no heavy lifting pushing pulling greater than 15 lbs for 5 weeks - Follow Up Care Current Providers and Referrals: Cherelle Welsh MD [Primary Care Provider] - Kassy Yee MD [Medical Doctor] - follow up in 1 week (1-2 weeks)
--- NOTE | 2017-09-16 17:04 | ASDISCHSUM ---
Discharge Information Plan Status:Home with Home Health Medically Cleared to Leave: Discharge Date:09/15/2017 11:01 AM CM D/C Disposition:Home Health Service ADT D/C Disposition:Home Health Service Projected Discharge Date:09/15/2017 11:00 AM Transportation at D/C:Family Discharge Delay Reason: Follow-Up Date:09/15/2017 11:00 AM Discharge Slot: Final Diagnosis: Placement Information Referral Type:*Home Health Care Services Referral ID:[id number] Provider Name:[facility] Address 1:[address] Address 2: City:[place] Selection Factors: State:[place] Patient Contact Information Contact Name:JOAQUINA Relationship:Daughter Address:[address] Work Phone: [facility] Alternate Phone: State/Zip Code:[place] [address] Email: Financial Information Financial Class:Medicare Primary Plan Desc:MEDICARE INPATIENT Primary Plan Number:[id number] Secondary Plan Desc:MED[place] Secondary Plan Number:[id number] Assessment Information [facility] CM Progress Note CM Note CM Note Notes: Pt. is a 71-year-old woman with multiple admissions and abdominal surgeries with a complicated course. Pt. w/ hx. small bowel resection due to Crohns and ileostomy takedown. Hx. depression per H&P. Per last admission notes, Pt. lives with her daughter and had [facility] for homecare with RN and PT for d/c on 07/15/17. CM to confirm if Pt. still open with [facility]. This admission's d/c plan is TBD at this time. Date Signed: 09/10/2017 12:01 PM Electronically Signed By:Shruthi Wells LCSW [facility] CM Progress Note CM Note CM Note Notes: Pt current with [facility] for RN/PT services. [facility] provided with updates. OT currently recommending SNF. PT has been unable to work with pt due to increased back pain. CM will continue to follow to determine dc needs. Date Signed: 09/13/2017 05:06 PM Electronically Signed By:Merly Price RN Case Management Discharge Plan Note Case Management Discharge Discharge Order Complete? Answers: Yes Patient to Obtain Answers: via Family Medications Transportation Arranged Answers: Family/Friends Faxed Final Orders Answers: Yes Notes: [facility] to [facility] Discharge Comments Notes: Ruthy met w/ Pt. in the room today. Pt. pleased to be "going home" today with [facility] homecare - RN, PT, OT and SURVEILLANCE SENSOR OFFICER. Pt. really likes her homecare providers. Ruthy called [facility] and spoke w/ Carrol. [facility] ready to care for Pt. Ruthy sent orders/referral via [employer]. Note: Pt. lives w/ her boyfriend, not daughter. Date Signed: 09/15/2017 09:48 AM Electronically Signed By:Shruthi Wells LCSW Intervention Information Intervention Type:*IM-Signed Date of Service:09/15/2017 10:16 AM Patient Type:Inpatient Staff Member:Miriam Ronquillo Hours: Discipline: Severity: Comment:
== END 2017-09-15 11:01 | disposition home health service (06) | DRG 329 ==
LOC: F3E 05:15
PROVIDERS: ADMIT Surgery; ATTEND Surgery
DX: K63.2 Fistula of intestine (principal); E43 Unspecified severe protein-calorie malnutrition; Z68.1 Body mass index [BMI] 19.9 or less, adult; L02.211 Cutaneous abscess of abdominal wall; K66.0 Peritoneal adhesions (postprocedural) (postinfection); Z87.891 Personal history of nicotine dependence
CPT/HCPCS: 92507-GN; 92523-GN; 92610-GN; 97161-GP; 97166-GO; 97530-GO; 97535-GO; C9399; G8978-GP-CI; G8979-GP-CI; G8987-GO-CK; G8988-GO-CI; G8989-GO-CI; G8996-GN-CH; G8997-GN-CH; G9168-GO-CI; G9169-GN-CI; G9170-GN-CI; J1100; J1170; J1956; J2060; J2250; J2370; J2405; J2550; J2704

== ENCOUNTER 2017-10-04 12:58 | Inpatient (IN) | payer OTHER, MEDICAID ==
[2017-10-04 13:55] LABS: PLATELET COUNT 549 10^3/uL (150-400)
[2017-10-04] MEDS ORDERED: NS 1,400 ML IV ONE (14:02)
[2017-10-04] MEDS ORDERED: HYDROmorphONE/DILAUDID 2 MG/ML INJ IVP ONE (14:02)
[2017-10-04] MEDS ORDERED: IOPAMIDOL (ISOVUE-300) 100 ML BTL ONE (14:04)
--- NOTE | 2017-10-04 14:09 | EDPHY ---
H & P Stated Complaint: abdominal pain, fever Time Seen by Provider: 10/04/17 13:55 HPI/ROS: CHIEF COMPLAINT: Abdominal pain, fever HISTORY OF PRESENT ILLNESS: Patient is a 71-year-old female with a complicated surgical history. She has history of Crohn's disease with multiple abdominal surgeries including several resections and enterocutaneous fistulas and abdominal wall abscesses. She is primarily managed by Dr. Kassy Yee. She states that she has had 12 surgeries this year. She has a firm lump to the left of her umbilicus that she states has been present for some time but that over the last week has become increasingly painful and hot and she has become febrile. She suspects another infection. She has been having loose bowel movements which are normal for her no blood. She denies vomiting. She has been taking Percocet at home. She also has a history of depression and severe protein malnutrition and anemia. REVIEW OF SYSTEMS: Constitutional: denies: chills, fever, recent illness, recent injury EENTM: denies: blurred vision, double vision, nose congestion Respiratory: denies: cough, shortness of breath Cardiac: denies: chest pain, irregular heart rate, lightheadedness, palpitations Gastrointestinal/Abdominal: See HPI Genitourinary: denies: dysuria, frequency, hematuria, pain Musculoskeletal: denies: joint pain, muscle pain Skin: denies: lesions, rash, jaundice, bruising Neurological: denies: headache, numbness, paresthesia, tingling, dizziness, weakness Hematologic/Lymphatic: denies: blood clots, easy bleeding, easy bruising Immunologic/allergic: denies: HIV/AIDS, transplant EXAM: GENERAL: Well-appearing, well-nourished and in no acute distress. HEAD: Atraumatic, normocephalic. EYES: Pupils equal round and reactive to light, extraocular movements intact, sclera anicteric, conjunctiva are normal. ENT: TMs normal, nares patent, oropharynx clear without exudates. Moist mucous membranes. NECK: Normal range of motion, supple without lymphadenopathy or JVD. LUNGS: Breath sounds clear to auscultation bilaterally and equal. No wheezes rales or rhonchi. HEART: Regular rate and rhythm without murmurs, rubs or gallops. ABDOMEN: Multiple scars present, firm tender lump to the left of the umbilicus that is slightly warm to the touch and very tender. Wounds appear intact not inflamed not draining. BACK: No CVA tenderness, no spinal tenderness, step-offs or deformities EXTREMITIES: Normal range of motion, no pitting or edema. No clubbing or cyanosis. NEUROLOGICAL: Cranial nerves II through XII grossly intact. Normal speech, normal gait. 5/5 strength, normal movement in all extremities, normal sensation PSYCH: Normal mood, normal affect. SKIN: Warm, dry, normal turgor, no visible rashes or lesions. Source: Patient, Old records Exam Limitations: No limitations - Personal History Current Tetanus/Diphtheria Vaccine: Unsure Current Tetanus Diphtheria and Acellular Pertussis (TDAP): Unsure Tetanus Vaccine Date: >10 YEARS - Medical/Surgical History Hx Asthma: No Hx Chronic Respiratory Disease: No Hx Diabetes: No Hx Cardiac Disease: No Hx Renal Disease: No Hx Cirrhosis: No Hx Alcoholism: No Hx HIV/AIDS: No Hx Splenectomy or Spleen Trauma: No Other PMH: pmh- Depression, Crohns, DD scoliosis, SBO. psh- bowel resection 1997, breast augmentation, c-spine fusion, tubal ligation, ostomy, reverse ostomy - Family History Significant Family History: No pertinent family hx - Social History Smoking Status: Former smoker Alcohol Use: None Constitutional: Initial Vital Signs Temperature (C) 38.5 C H 10/04/17 13:16 Heart Rate 88 10/04/17 13:16 Respiratory Rate 18 10/04/17 13:16 Blood Pressure 131/82 H 10/04/17 13:16 O2 Sat (%) 97 10/04/17 13:16 O2 Delivery Mode Nasal Cannula O2 (L/minute) 2 Allergies/Adverse Reactions: fentanyl [Fentanyl] Allergy (Severe, Verified 09/07/17 12:11) MEMORY LOSS Penicillins Allergy (Severe, Verified 09/07/17 12:10) SEIZURES Sulfa (Sulfonamide Antibiotics) Allergy (Severe, Verified 09/07/17 12:10) NAUSEA azathioprine Allergy (Unknown, Verified 09/07/17 12:10) Rash budesonide Allergy (Unknown, Verified 09/07/17 12:10) Rash gabapentin Allergy (Unknown, Verified 09/07/17 12:10) Rash infliximab Allergy (Unknown, Verified 09/07/17 12:10) Itching mesalamine Allergy (Unknown, Verified 09/07/17 12:10) Rash morphine Allergy (Unknown, Verified 09/07/17 12:10) PT BECOMES "MEAN" tramadol [Tramadol] Allergy (Unknown, Verified 09/07/17 12:10) azathioprine sodium [From Imuran] Allergy (Verified 09/07/17 12:10) Rash cefuroxime [From Ceftin] Allergy (Verified 09/07/17 12:10) Other-Enter Comments ertapenem [From Invanz] Allergy (Verified 09/07/17 12:10) Other-Enter Comments Home Medications: Medication Instructions Recorded Dicyclomine [Bentyl 10 MG (*)] 10 mg PO BID 12/06/16 FLUoxetine [Prozac 20 MG (*)] 60 mg PO DAILY 12/06/16 LORazepam [Ativan (*)] 0.5 mg PO BID 12/06/16 Pregabalin [Lyrica 50mg (*)] 100 mg PO TID 03/28/17 Acetamn/Diphenhydramine 500/25 1 each PO HS PRN 07/11/17 [Tylenol PM (*)] Cholecalciferol Vit D3 [Vitamin D3 1,000 units PO DAILY 09/06/17 (*)] Multivitamins [Multivitamin (*)] 1 each PO DAILY 09/06/17 oxyCODONE IR [Oxycodone Ir (*)] 5 mg PO DAILY@13 09/06/17 oxyCODONE IR [Oxycodone Ir (*)] 10 mg PO BID 09/06/17 Acetaminophen [Tylenol 325mg (*)] 650 mg PO Q6 PRN tab 09/15/17 oxyCODONE IR [Oxycodone Ir (*)] 5 - 10 mg PO Q4HRS PRN #30 tab 09/15/17 Medical Decision Making - Diagnostics Imaging Results: Imaging Impressions Abdomen CT 10/04/17 14:02 Impression: 1. New ventral abdominal wall hernia contains a segment of small bowel. 2. Acute small bowel enteritis with possible stricture adjacent to abdominal wall hernia. Without enteric contrast it is not possible to exclude a small interloop abscess. 3. Stable biliary ductal dilatation and pancreatic ductal dilatation. No perinephric mass or discrete common bile duct stone. 4. Pelvic varices and chronic left ovarian vein thrombus. 5. Unchanged pleural-based lower lobe nodules bilaterally. Findings were communicated by telephone with Dr. TRISTEN NGUYEN at 10/04/2017 15:30 ED Course/Re-evaluation: Patient tells me she would like us to do testing and CT scan but is not sure she wants to be treated it definitely does not want have any further surgeries. She states that she would like to fill out paperwork to make her comfort care only. 5:00 p.m. the patient has been evaluated by Dr. Kassy Yee physician assistant terminal manager. They would like to admit her for further treatment. Have placed admission orders. They suspect that she has a car site hernia but as of yet she will not allow him to operate. They will admit. Differential Diagnosis: Partial list of the Differential diagnosis considered include but were not limited to; incarcerated hernia, abscess, Crohn's flare and although unlikely based on the history and physical exam, I also considered ischemic bowel, obstruction, fistula. - Data Points Laboratory Results: Laboratory Results 10/04/17 13:35 10/04/17 13:35 10/04/17 10/04/17 10/04/17 13:35 13:35 13:35 WBC RBC Hgb Hct MCV MCH MCHC RDW Plt Count MPV Neut % (Auto) Lymph % (Auto) [place] % (Auto) Eos % (Auto) Baso % (Auto) Nucleat RBC Rel Count Absolute Neuts (auto) Absolute Lymphs (auto) Absolute Monos (auto) Absolute Eos (auto) Absolute Basos (auto) Absolute Nucleated RBC Immature Gran % Immature Gran # PT 15.0 SEC SEC (12.0-15.0) INR 1.16 (0.83-1.16) APTT 40.3 SEC H SEC (23.0-38.0) ABG Lactic Acid 1.1 mmol/L mmol/L (0.5-1.6) Sodium Potassium Chloride Carbon Dioxide Anion Gap BUN Creatinine Estimated GFR Glucose Calcium Total Bilirubin 0.4 mg/dL mg/dL (0.1-1.4) Conjugated Bilirubin 0.4 mg/dL mg/dL (0.0-0.5) Unconjugated Bilirubin 0.0 mg/dL mg/dL (0.0-1.1) AST 15 IU/L IU/L (14-46) ALT 25 IU/L IU/L (9-52) Alkaline Phosphatase 77 IU/L IU/L (38-126) Total Protein 6.2 g/dL L g/dL (6.3-8.2) Albumin 3.8 g/dL g/dL (3.5-5.0) Lipase 24 IU/L IU/L (23-300) Urine Color Urine Appearance Urine pH Ur Specific [place] Urine Protein Urine Ketones Urine Blood Urine Nitrate Urine Bilirubin Urine Urobilinogen Ur Leukocyte Esterase Urine Glucose 10/04/17 10/04/17 10/04/17 13:35 13:35 13:30 WBC 11.28 10^3/uL H 10^3/uL (3.80-9.50) RBC 3.52 10^6/uL L 10^6/uL (4.18-5.33) Hgb 9.4 g/dL L g/dL (12.6-16.3) Hct 26.5 % L % (38.0-47.0) MCV 75.3 fL L fL (81.5-99.8) MCH 26.7 pg L pg (27.9-34.1) MCHC 35.5 g/dL g/dL (32.4-36.7) RDW 18.4 % H % (11.5-15.2) Plt Count 549 10^3/uL H 10^3/uL (150-400) MPV 9.5 fL fL (8.7-11.7) Neut % (Auto) 80.4 % H % (39.3-74.2) Lymph % (Auto) 12.0 % L % (15.0-45.0) [place] % (Auto) 5.9 % % (4.5-13.0) Eos % (Auto) 0.9 % % (0.6-7.6) Baso % (Auto) 0.5 % % (0.3-1.7) Nucleat RBC Rel Count 0.0 % % (0.0-0.2) Absolute Neuts (auto) 9.07 10^3/uL H 10^3/uL (1.70-6.50) Absolute Lymphs (auto) 1.35 10^3/uL 10^3/uL (1.00-3.00) Absolute Monos (auto) 0.67 10^3/uL 10^3/uL (0.30-0.80) Absolute Eos (auto) 0.10 10^3/uL 10^3/uL (0.03-0.40) Absolute Basos (auto) 0.06 10^3/uL 10^3/uL (0.02-0.10) Absolute Nucleated RBC 0.00 10^3/uL 10^3/uL (0-0.01) Immature Gran % 0.3 % % (0.0-1.1) Immature Gran # 0.03 10^3/uL 10^3/uL (0.00-0.10) PT INR APTT ABG Lactic Acid Sodium 138 mEq/L mEq/L (135-145) Potassium 4.2 mEq/L mEq/L (3.5-5.2) Chloride 103 mEq/L mEq/L (97-110) Carbon Dioxide 21 mEq/l L mEq/l (22-31) Anion Gap 14 mEq/L mEq/L (8-16) BUN 13 mg/dL mg/dL (7-23) Creatinine 0.7 mg/dL mg/dL (0.6-1.0) Estimated GFR > 60 Glucose 82 mg/dL mg/dL (70-100) Calcium 9.2 mg/dL mg/dL (8.5-10.4) Total Bilirubin Conjugated Bilirubin Unconjugated Bilirubin AST ALT Alkaline Phosphatase Total Protein Albumin Lipase Urine Color YELLOW Urine Appearance CLEAR Urine pH 5.0 (5.0-7.5) Ur Specific [place] 1.009 (1.002-1.030) Urine Protein NEGATIVE (NEGATIVE) Urine Ketones NEGATIVE (NEGATIVE) Urine Blood NEGATIVE (NEGATIVE) Urine Nitrate NEGATIVE (NEGATIVE) Urine Bilirubin NEGATIVE (NEGATIVE) Urine Urobilinogen NEGATIVE EU EU (0.2-1.0) Ur Leukocyte Esterase NEGATIVE (NEGATIVE) Urine Glucose NEGATIVE (NEGATIVE) Medications Given: Discontinued Medications Hydromorphone HCl (Dilaudid) 1 mg IVP EDNOW ONE Stop: 10/04/17 14:03 Last Admin: 10/04/17 14:23 Dose: 1 mg Sodium Chloride (Ns) 1,400 mls @ 2,800 mls/hr 30 ml/kg infuse over 30 min ( 1400 ml) IV EDNOW ONE PRN Reason: Protocol Stop: 10/04/17 14:31 Last Admin: 10/04/17 14:21 Dose: 1,400 mls Levofloxacin/Dextrose (Levaquin 500 Mg (Premix)) 100 mls @ 100 mls/hr IV ONCE ONE PRN Reason: Protocol Stop: 10/04/17 19:51 Last Admin: 10/04/17 19:38 Dose: 100 mls Metronidazole/Sodium Chloride (Flagyl 500 Mg (Premix)) 100 mls @ 100 mls/hr IV ONCE ONE PRN Reason: Protocol Stop: 10/04/17 19:52 Last Admin: 10/04/17 20:41 Dose: 100 mls Lactated Ringer's (Lr) 1,000 mls @ 0 mls/hr IV ONCE ONE PRN Reason: KVO Stop: 10/04/17 20:15 Last Admin: 10/04/17 20:21 Dose: 1,000 mls Departure - Departure Disposition: [facility] Inpatient Acute Clinical Impression: Periumbilical hernia Abdominal pain Qualifiers: Abdominal location: periumbilical Qualified Code(s): R10.33 - Periumbilical pain Condition: Fair
[2017-10-04 14:28] LABS: INR 1.16 (0.83-1.16)
--- NOTE | 2017-10-04 18:33 | ASMTCMCOM ---
CM Note CM Note Notes: Pt presented to the ED with abdominal pain and fever. Patient is well known to [facility] (most recent DC 09/15/17) and has multiple inpatient admissions, abdominal surgeries in the past year or so. Pt has a complex medical history related to Crohn's disease. Please refer to previous admission reports and notes for additional info. Pt admitted for abdominal pain and fever; CT shows new ventral abdominal wall hernia containing a segment of small bowel and also acute small bowel enteritis with possible stricture. Pt told ED MD that she does not want to have any more surgeries and that she wants to fill out paperwork to be comfort care only. Pt's most recent Advance Directive from 12/19/17 is scanned into the pt chart. Pt's MDPOA (also scanned into pt chart) is her biological daughter Annika Hill ([phone]) who lives in [place] and is on her way to [facility]. Pt's non-biological "daughter" Debbie Valiente ([phone]) lives in [place] is also very involved. Pt has been receiving RN/PT/OT/MINE BOSS/LSCW through [facility]. Spoke with LUCAS Andre ([phone]) and she states that patient recently was living at home in [place] with her longtime partner/boyfriend and caregiver (via [facility]), Orlando Weinberg, but on 09/23/17, the patient and Debbie called [place] Police and had Orlando arrested for "acting bizarre" and reportedly taking some of the pt's medications. Per September, Orlando is still in [facility] and will not be returning to the home because the pt is "severing their relationship." Jes said they have been trying to get pt new caregiver services through [facility] but is not sure where they are in that process. Per September, pt would benefit from a palliative care consult w/ Annika present (re:pt's wishes for comfort care only), a behavioral health consult or mental health eval (September concerned about pt's erratic/emotional behavior, depression, intermittent paranoia and forgetfulness when stressed), pain medication management consult (pt has a lot of narcotics at home and needs med supervision), pt's high fall risk (pt had a fall yesterday) and thinks pt would also ultimately need a SNF placement. Pt was at [facility] in November 2016 (see ED CM Note from that visit for background info). Pt also mentioned to September that she would be interested in a place like "[facility]." One of the pt's social workers through [facility] is My Mcconnell ([phone]) and knows the patient very well; please reach out to her for additional psycho/social background. Pt's PCP is Dr Cherelle Welsh and is also followed closely by Dr Kassy Yee and her PA Sosa Ortiz. Exact DC needs TBD but may anticipate Palliative Care consult with pt and daughters, cognitive/mental health eval, etc.; and either DC to Home w/HC with existing therapies + new [facility] caregiver, vs. [facility] vs. SNF. CM to follow. Date Signed: 10/04/2017 06:33 PM Electronically Signed By:Shruthi Chambers RN
[2017-10-04] MEDS ORDERED: levOFLOXACIN 500 MG/DEXTROSE 100 ML IV ONE (18:52)
--- NOTE | 2017-10-04 20:03 | GHP ---
[f rep st] HISTORY AND PHYSICAL DATE OF ADMISSION: 10/04/2017 ADMITTING DIAGNOSIS: Incarcerated ventral hernia. HISTORY OF PRESENT ILLNESS: The patient is a 71-year-old woman with a complicated surgical history related to Crohn disease. She most recently was taken to the operating room by Dr. Yee last month on 09/09/2017, for resection of a colocutaneous fistula. She has been seen in our office for postop checks and has had a complicated psychosocial situation, however, was healing well from a surgical standpoint. Her abdominal pain was improving. She was tolerating a regular diet and she was living independently. She presented to the ER today complaining of worsening abdominal pain. She noticed a bulge around her umbilicus which has been present for about a week but is increasing in size and becoming more painful. She also reports that it is warm to the touch. She reports subjective fever. She is having less bowel movements , which is normal for her, and is passing gas. She reports nausea but no vomiting. PAST MEDICAL HISTORY: Chronic pain, Crohn disease, degenerative disk disease, depression/anxiety. PAST SURGICAL HISTORY: Multiple small bowel resections, multiple enterocutaneous fistulas, laminectomy, umbilical hernia, breast augmentation, cervical diskectomy. ALLERGIES: Multiple. Please see the list in the EMR for all allergies and reactions. FAMILY HISTORY: Significant for heart disease and lung cancer. SOCIAL HISTORY: She is currently living independently at home. Recently she split with her caregiver/partner, Orlando, and he is currently incarcerated and she is seeking a restraining order. She has 2 daughters who are involved in her care. She denies tobacco, alcohol or recreational drug use. REVIEW OF SYSTEMS: 10-point review of systems negative aside from HPI. PHYSICAL EXAM: GENERAL: Pleasant thin woman in no acute distress. Daughters at bedside. HEENT: Normocephalic, atraumatic. No hearing deficits. Pupils equal and round. No scleral icterus. Mucous membranes moist. NECK: Trachea midline. RESPIRATORY: Clear to auscultation bilaterally. No increased work of breathing. CARDIOVASCULAR: Regular rate and rhythm. No peripheral edema. ABDOMEN: Hyperactive bowel sounds throughout. Soft. No rebound or guarding. Bulge present along midline incision, slightly to the left of midline incision around the umbilicus. There is slight overlying erythema. This is very tender to palpation. I attempted to reduce the ventral hernia, but was unable to secondary to pain. PSYCH: Mood and affect normal. NEURO: Grossly intact. RESULTS REVIEWED: Labs revealed leukocytosis of 11,000, slight anemia. Lactic acid within normal limits. Her electrolytes are within normal limits aside from total protein which is low and carbon dioxide. UA negative. She had an abdominal CT performed which revealed a new ventral abdominal wall hernia containing a segment of small bowel. She also has acute small bowel enteritis with possible stricture adjacent to the abdominal wall hernia. Other stable changes as noted in the report. IMPRESSION AND PLAN: The patient is a 71-year-old woman with a complicated surgical history secondary to Crohn disease, who now presents with an incarcerated ventral hernia. This appears to be at the site of her previous ileostomy takedown. On initial evaluation, patient was refusing any surgical intervention and wanted to be made DNR and comfort measures only. However, I re -examined the patient after her daughter arrived and she was much more amendable to surgical repair. We discussed open ventral hernia repair. We discussed risks of surgery, including but not limited to heart attack, stroke, blood clots or . We discussed risk of infection, bleeding, damage to surrounding structures, or need for additional procedures. She understands the risks and would like to proceed. She will be taken to the operating room this evening. She will receive antibiotics on-call to the operating room. Consent signed and in chart. I personally saw and examined Farnaz. This is a difficult situation. It seems that she is developing a different problem every time she has surgery. Surgery is becoming more difficult each time as well. She has pain and an incarcerated ventral hernia. I will take her for repair. I am very concerned about adhesions, creating enterotomies and recurrent hernia /[id number]/MODL MTDD
[2017-10-04] MEDS ORDERED: LR 1,000 ML IV ONE (20:14)
[2017-10-04] MEDS ORDERED: BUPIVACAINE 0.5% 30 ML SDV ONE (20:59)
[2017-10-04] MEDS ORDERED: MIDAZOLAM 2 MG/2 ML VIAL IVP ONE (20:59)
--- NOTE | 2017-10-04 20:59 | PDANEPAE ---
ANE History of Present Illness 71 yo for exp lap, ventral hernia repair ANE Past Medical History - Cardiovascular History Hx Hypertension: No Hx Arrhythmias: No Hx Chest Pain: No Hx Coronary Artery / Peripheral Vascular Disease: No Hx CHF / Valvular Disease: No Hx Palpitations: No Cardiovascular History Comment: labile BP - Pulmonary History Hx COPD: No Hx Asthma/Reactive Airway Disease: No Hx Recent Upper Respiratory Infection: No Hx Oxygen in Use at Home: No Hx Sleep Apnea: No Pulmonary History Comment: quit smoking 2 cigs/day 03-28-17. "fluid in lungs- September while in ICU for sepsis" ? spot on lung - Neurologic History Hx Cerebrovascular Accident: No Hx Seizures: No Hx Dementia: No Neurologic History Comment: scoliosis-back and neck pain. - Endocrine History Hx Diabetes: No - Renal History Hx Renal Disorders: No - Liver History Hx Hepatic Disorders: No - Neurological & Psychiatric Hx Hx Neurological and Psychiatric Disorders: Yes Neurological / Psychiatric History Comment: ANXIETY, depression. - Cancer History Hx Cancer: No - Congenital Disorder History Hx Congenital Disorders: No - GI History Hx Gastrointestinal Disorders: Yes Gastrointestinal History Comment: CROHNS. 03/2017 EUA FOR IMPACTION WITH KIP. "ulcers found in upper and lower bowel", VIOLENT VOMITTING after feeding tube removed. No vomitting now. - Other Health History Other Health History: WEARS GLASSES - Chronic Pain History Chronic Pain: Yes (back,neck.) - Surgical History Prior Surgeries: 04/09/17 EUA WITH EVACUATION OF STOOL WITH KIP. BOWEL RESECTION. TUBAL LIGATION. CERVICAL SURG. BACK SURG FOR GROWTH ANE Review of Systems Review of Systems: - Exercise capacity METS (RN): 3 METS ANE Patient History - Allergies Allergies/Adverse Reactions: fentanyl [Fentanyl] Allergy (Severe, Verified 09/07/17 12:11) MEMORY LOSS Penicillins Allergy (Severe, Verified 09/07/17 12:10) SEIZURES Sulfa (Sulfonamide Antibiotics) Allergy (Severe, Verified 09/07/17 12:10) NAUSEA azathioprine Allergy (Unknown, Verified 09/07/17 12:10) Rash budesonide Allergy (Unknown, Verified 09/07/17 12:10) Rash gabapentin Allergy (Unknown, Verified 09/07/17 12:10) Rash infliximab Allergy (Unknown, Verified 09/07/17 12:10) Itching mesalamine Allergy (Unknown, Verified 09/07/17 12:10) Rash morphine Allergy (Unknown, Verified 09/07/17 12:10) PT BECOMES "MEAN" tramadol [Tramadol] Allergy (Unknown, Verified 09/07/17 12:10) azathioprine sodium [From Imuran] Allergy (Verified 09/07/17 12:10) Rash cefuroxime [From Ceftin] Allergy (Verified 09/07/17 12:10) Other-Enter Comments ertapenem [From Invanz] Allergy (Verified 09/07/17 12:10) Other-Enter Comments - Home Medications Home Medications: Dicyclomine [Bentyl 10 MG (*)] 10 mg PO BID 12/06/16 [Last Taken 10/04/17] FLUoxetine [Prozac 20 MG (*)] 60 mg PO DAILY 12/06/16 [Last Taken 10/04/17] LORazepam [Ativan (*)] 0.5 mg PO BID 12/06/16 [Last Taken 10/04/17] Pregabalin [Lyrica 50mg (*)] 100 mg PO TID 03/28/17 [Last Taken 10/04/17] Acetamn/Diphenhydramine 500/25 [Tylenol PM (*)] 1 each PO HS PRN 07/11/17 [Last Taken 10/03/17] Cholecalciferol Vit D3 [Vitamin D3 (*)] 1,000 units PO DAILY 09/06/17 [Last Taken 10/04/17] Multivitamins [Multivitamin (*)] 1 each PO DAILY 09/06/17 [Last Taken 10/04/17] oxyCODONE IR [Oxycodone Ir (*)] 5 mg PO DAILY@13 09/06/17 [Last Taken 10/04/17] oxyCODONE IR [Oxycodone Ir (*)] 10 mg PO BID 09/06/17 [Last Taken 10/04/17] - NPO status NPO Since - Liquids (Date): 10/04/17 NPO Since - Liquids (Time): 14:30 NPO Since - Solids (Date): 10/04/17 NPO Since - Solids (Time): 07:00 - Smoking Hx Smoking Status: Former smoker - Alcohol Use Alcohol Use: None - Family Anes Hx Family Hx Anesthesia Complications: NEG ANE Labs/Vital Signs - Labs Result Diagrams: 10/04/17 13:35 10/04/17 13:35 - Vital Signs Blood Pressure: 122/66 Heart Rate: 76 Respiratory Rate: 18 O2 Sat (%): 93 Height: 5 ft Weight: 45.359 kg ANE Physical Exam - Airway Neck exam: FROM Mallampati Score: Class 2 Mouth exam: normal dental/mouth exam - Pulmonary Pulmonary: no respiratory distress - Cardiovascular Cardiovascular: regular rate and rhythym - ASA Status ASA Status: II, E ANE Anesthesia Plan Anesthesia Plan: general endotracheal anesthesia
[2017-10-04] MEDS ORDERED: MIDAZOLAM 2 MG/2 ML VIAL ONE (21:05)
[2017-10-04] MEDS ORDERED: HYDROmorphONE/DILAUDID 2 MG/ML INJ ONE (21:06)
[2017-10-04] MEDS ORDERED: PROPOFOL/EMULSION 500 MG/50 ML BOTTLE IV ONE (21:06)
[2017-10-04] MEDS ORDERED: KETAMINE 200 MG/20 ML VIAL ONE (21:06)
[2017-10-04] MEDS ORDERED: METOCLOPRAMIDE 10 MG/2 ML VIAL ONE (21:07)
[2017-10-04] MEDS ORDERED: DEXAMETHASONE 4 MG/ML VIAL ONE (21:07)
[2017-10-04] MEDS ORDERED: HYDROmorphONE/DILAUDID 1 MG/ML INJ IVP PRN (23:18)
[2017-10-04] MEDS ORDERED: NALOXONE HCL 0.4 MG/ML INJ IVP PRN ×2 (23:18→23:36)
[2017-10-04] MEDS ORDERED: ONDANSETRON 4 MG/2 ML VIAL IVP PRN (23:18)
[2017-10-04] MEDS ORDERED: oxyCODONE IR 5 MG TAB PO PRN (23:36)
--- NOTE | 2017-10-04 23:39 | POSTOPPROG ---
Post Op Note Date of Operation: 10/04/17 Surgeon: Kassy Yee Anesthesiologist: helen Anesthesia: GET(General Endotracheal) Pre-op Diagnosis: incarcerated ventral hernia Post-op Diagnosis: same Indication: 71 yo with hx multipe abdominal surgeries now with incarcerated ventral her Procedure: ex lap, SUHAIL, ventral hernia repair Findings: old fistula track, small hernia Inf/Abcess present in the surg proc area at time of surgery?: Yes Depth: Deep Incisional (Fascial) EBL: Minimal Specimen(s): none
--- NOTE | 2017-10-05 00:39 | GOP ---
[f rep st] OPERATIVE REPORT DATE OF OPERATION: 10/04/2017 SURGEON: Kassy Yee MD ANESTHESIA: General. ANESTHESIOLOGIST: Dr. Ash Li. PREOPERATIVE DIAGNOSIS: Incarcerated ventral hernia. POSTOPERATIVE DIAGNOSIS: Incarcerated ventral hernia. PROCEDURE PERFORMED: 1. Exploratory laparotomy. 2. Lysis of adhesions. 3. Ventral hernia repair. FINDINGS: She has multiple adhesions throughout her abdomen. It was very difficult to find a free space. I also found an old fistulous tract but did not see any connection to current bowel. SPECIMENS: None. ESTIMATED BLOOD LOSS: 75 cc. INDICATIONS: The patient is a 71-year-old woman with a history of Crohn disease. She has had several bowel resections. She has had an ostomy and ostomy takedown. She has had an enterocutaneous fistula; she has had that repaired. Now, she has developed an incarcerated ventral hernia on the left side of her abdomen. It is extremely painful to the touch. DESCRIPTION OF PROCEDURE: The patient was brought into the operating room, placed supine on the table, and general anesthesia was administered. Her abdomen was prepped and draped in the usual sterile fashion. I infiltrated all sites with 0.5% Marcaine prior to making incisions. I used a total of 30 cc throughout the case. I made an incision over the area that was incarcerated and extended my incision laterally to find a free area to enter the peritoneum. I dissected down through the subcutaneous space. There was a small abscess just underneath the skin that had a very small amount of bilious abscess-like material that could not be reproduced. I extended my incision laterally and I dissected down through the subcutaneous tissues. I swept the rectus muscles and identified the fascia. I divided this. I identified the peritoneum. I elevated it and I entered her abdomen sharply. I placed my finger in her abdomen and there was a small amount of free space and so I was able to continue my incision. I then encountered multiple abdominal adhesions to her peritoneum. Using my finger, I was able to reduce the small amount of omentum that was in a small hernia area. I continued my dissection. On top of the fascia, it appeared that there was some omentum. I ended up needing to divide some of the rectus to get better exposure. It was difficult and time consuming to identify free space. I continued my dissection. I performed about 1-1/2 hours of adhesiolysis which is at least 50% greater than I would normally do in such a case. From the area that was at the skin that appeared to be an old fistula, I was able to enter a DeBakey and I could see this just under the fascia but I could not see any defect in bowel underneath it. I performed copious amounts of irrigation. I placed dry laps. Multiple times, I had Anesthesia give Valsalva maneuvers to see if I could reproduce any type of bilious communication and none was found. I could see the old suture line from her most recent repair in the upper right abdomen. I continued all of my dissection. I excised the old fistulous tract which may have been a remnant from her previous colostomy takedown. I continued to irrigate and examine the wound and again could not find any obvious breach in intestine in the abdomen. Again, this was very difficult due to the amount of adhesions that she had. I elected to place AmnioFix over the previous anastomosis where I could still see Vicryl sutures 2 x 12 [id number], expiration May 27, 2022. I reapproximated the rectus with 0 Vicryl. I closed the fascia with 0 PDS. I placed a subcutaneous 15 round silicone drain, sutured this with 3-0 nylon. I closed the skin with heidy. Sterile dressings were applied. She was awakened in the operating room, extubated, transferred to PACU in stable condition. I spoke with her daughter by phone after the case. /[id number]/MODL MTDD
[2017-10-05] MEDS: HYDROmorphONE/DILAUDID 6 MG/30 ML PCA IV PRN ×2 (00:59→22:19)
[2017-10-05] MEDS: D5W 1/2 NS W/ 20 KCl/L 1,000 ML IV SCH ×2 (02:46→17:45)
[2017-10-05] MEDS: PREGABALIN 50 MG CAP PO SCH ×3 (09:28→22:06)
[2017-10-05] MEDS: oxyCODONE IR 5 MG TAB PO SCH ×3 (09:29→20:10)
[2017-10-05] MEDS ORDERED: CEPACOL LOZENGE PO PRN (09:29)
[2017-10-05] MEDS: LORazepam 0.5 MG TAB PO SCH ×2 (09:29→20:10)
[2017-10-05] MEDS: FLUoxetine 20 MG CAP PO SCH (09:29)
--- NOTE | 2017-10-05 12:35 | ASMTCMCOM ---
CM Note CM Note Notes: * Please also read Case Management note from 10/04 for additional important patient information * Today I spoke Angélica Smith, patient's [facility] publications sales representative ([phone]). Angélica informs me that they are in the process of setting up unskilled caregiving/homemaking services for patient (this would be in addition to the skilled services she already receives with [facility]). We will have a palliative care consult today with patient's daughters at 1400, and I have also ordered a Behavioral Health RN consult. PT/OT are ordered and pending. Case Management will follow. Date Signed: 10/05/2017 12:35 PM Electronically Signed By:Olivia Carnes RN
--- NOTE | 2017-10-05 15:25 | SOAPPROG ---
SOAP Progress Note Assessment/Plan: Assessment/Plan: 71yo F with complicated surgical history and Crohn's POD#1 s/p open repair of incarcerated ventral hernia Pain currently controlled Home meds NPO for now - will advance slowly when passing flatus No flatus or BM Dressings intact - will takedown tomorrow PT/OT Dietary consult - pt with history of severe protein deficiency malnutrition Palliative care consult Behavioral health consult Additionally seen by Dr. Yee S: overall feeling well today. her pain is currently controlled. much better than last night. not passing gas O: laying in bed, comfortable, NAD No increased WOB Abd softly distended. Hypoactive BS. Dressings in place. Nontender to light palpation Objective: Vital Signs Temp Pulse Resp BP Pulse Ox 36.8 C 83 16 101/57 L 90 L 10/05/17 12:22 10/05/17 14:02 10/05/17 14:02 10/05/17 14:02 10/05/17 14:02 10/04/17 10/05/17 10/06/17 05:59 05:59 05:59 Intake Total 3300 305 Output Total 1090 200 Balance 2210 105 PT 15.0 SEC (12.0-15.0) 10/04/17 13:35 INR 1.16 (0.83-1.16) 10/04/17 13:35 ICD10 Worksheet Patient Problems: Problems Problem Status Onset Abdominal pain Acute Periumbilical hernia Acute Abdominal pain Acute Abdominal pain, chronic, right lower quadrant Acute Acute Crohn's disease Acute Altered mental status Acute Bronchitis Acute Constipation Acute Crohns disease Acute Crohns disease of small intestine Acute Fever Acute Intra-abdominal abscess Acute Malnutrition Acute Postoperative infection Acute Severe sepsis Acute Vomiting Acute
--- NOTE | 2017-10-05 15:31 | PDMN ---
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
--- NOTE | 2017-10-05 15:39 | ASMTCMCOM ---
CM Note CM Note Notes: Productive palliative care consult with patient, daughter/MDPOA Zion and Victor Hugo Mauricio. Both patient and daughter agree that patient has been experiencing a decline in her physical and mental health and that she is not doing well living alone. They are interested in Assisted Living, so we discussed this. I encouraged Zion to visits ALFs and get on waiting lists LOUIE, since this is a process that can take months. We also discussed the benefits of a SNF in the meantime, for both physical rehab, socialization, and nursing care. Patient is well supported at home with skilled and (pending) unskilled help, but she is so frail that the unsupervised time poses a high risk. Her daughter mentioned that she would be able to spend more time with patient in her home if there is a lag time between SNF and Assisted Living. I will send referrals to Amy and Arianne, and Victor Hugo will contact [facility] to come explain palliative care services to patient and daughter. He will also coordinate care with her PCP's office. I spoke with mady Swan PA, to include her in this planning. It seems we have a lot of resources in place already for this patient, so hopefully we can create a realistic and appropriate discharge plan. Date Signed: 10/05/2017 03:39 PM Electronically Signed By:Olivia Carnes RN
[2017-10-05] MEDS: diphenhydrAMINE 25 MG CAP PO PRN (18:29)
[2017-10-05] MEDS: levOFLOXACIN 500 MG/DEXTROSE 100 ML IV SCH (20:12)
[2017-10-06] MEDS: oxyCODONE IR 5 MG TAB PO SCH ×3 (08:01→20:45)
[2017-10-06] MEDS: FLUoxetine 20 MG CAP PO SCH (08:02)
[2017-10-06] MEDS: LORazepam 0.5 MG TAB PO SCH ×2 (08:02→20:45)
[2017-10-06] MEDS: PREGABALIN 50 MG CAP PO SCH ×3 (08:02→22:39)
[2017-10-06] MEDS: D5W 1/2 NS W/ 20 KCl/L 1,000 ML IV SCH ×2 (08:14→14:16)
[2017-10-06] MEDS ORDERED: NS 1,000 ML IV ONE (12:00)
--- NOTE | 2017-10-06 13:36 | ASMTCMCOM ---
CM Note CM Note Notes: Pt and dtr met with [facility] today and decided to DC with their services. Also, dtr toured [facility] and [facility] today and chose [facility]. Let Tahira at [facility] know. Date Signed: 10/06/2017 01:36 PM Electronically Signed By:Germaine Pruitt LCSW
[2017-10-06] MEDS: ACETAMINOPHEN 325 MG TAB PO PRN (14:15)
[2017-10-06] MEDS: ONDANSETRON 4 MG/2 ML VIAL IVP PRN (14:15)
[2017-10-06] MEDS: levOFLOXACIN 500 MG/DEXTROSE 100 ML IV SCH (20:45)
--- NOTE | 2017-10-06 22:15 | SOAPPROG ---
SOAP Progress Note Assessment/Plan: Assessment: POD # 2 s/p ex lap, lysis of adhesions, hernia repair malnutrition BMI 19 depression high fever this afternoon. Labs in am. 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 FEN - NPO until return of bowel function Dispo - continue inpatient. [facility] on discharge Saw twice today. Better around 1700 S: Fever this afternoon. No flatus yet O: CTAB, no increased work of breathing Regular rate BS present Soft, appropriately tender Incision cdi JAS with serosangionous fluid Plan: 10/06/17 22:12 Objective: Vital Signs Temp Pulse Resp BP Pulse Ox 37.2 C 75 16 94/52 L 97 10/06/17 19:07 10/06/17 19:07 10/06/17 19:07 10/06/17 19:07 10/06/17 19:07 10/05/17 10/06/17 10/07/17 05:59 05:59 05:59 Intake Total 1900 2231 1740 Output Total 1090 1410 1710 Balance 810 821 30 PT 15.0 SEC (12.0-15.0) 10/04/17 13:35 INR 1.16 (0.83-1.16) 10/04/17 13:35 ICD10 Worksheet Patient Problems: Problems Problem Status Onset Abdominal pain Acute Periumbilical hernia Acute Abdominal pain Acute Abdominal pain, chronic, right lower quadrant Acute Acute Crohn's disease Acute Altered mental status Acute Bronchitis Acute Constipation Acute Crohns disease Acute Crohns disease of small intestine Acute Fever Acute Intra-abdominal abscess Acute Malnutrition Acute Postoperative infection Acute Severe sepsis Acute Vomiting Acute
[2017-10-07] MEDS: HYDROmorphONE/DILAUDID 6 MG/30 ML PCA IV PRN ×2 (05:01→22:44)
[2017-10-07 05:04] LABS: PLATELET COUNT 441 10^3/uL (150-400)
[2017-10-07] MEDS: D5W 1/2 NS W/ 20 KCl/L 1,000 ML IV SCH ×2 (05:05→17:45)
[2017-10-07] MEDS: FLUoxetine 20 MG CAP PO SCH (09:21)
[2017-10-07] MEDS: PREGABALIN 50 MG CAP PO SCH ×3 (09:21→22:43)
[2017-10-07] MEDS: oxyCODONE IR 5 MG TAB PO SCH ×3 (09:22→20:15)
[2017-10-07] MEDS: LORazepam 0.5 MG TAB PO SCH ×2 (09:23→20:15)
--- NOTE | 2017-10-07 12:01 | SOAPPROG ---
SOAP Progress Note Assessment/Plan: Assessment/Plan: 71yo F with complicated surgical history and Crohn's POD#3 s/p open repair of incarcerated ventral hernia, SUHAIL. Depression. Severe protein evangelist malnutrition BMI 19. 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 Passing flatus FEN - Will advance to clear liquids Heme/ID - ABLA, monitor - repeat labs tomorrow. Therapeutic antibiotics, afebrile today, no leukocytosis - monitor PT/OT, dietary following Dispo - continue inpatient for pain control and return of bowel function. [facility] on discharge - pt and family agree that she is unsafe to return home S: overall feeling well today. her pain is currently controlled. much better than last night. not passing gas O: laying in bed, comfortable, NAD CTAB, no increased work of breathing Regular rate BS present. Soft, appropriately tender, incision cdi JAS with serosanguinous fluid Objective: Vital Signs Temp Pulse Resp BP Pulse Ox 37.0 C 92 14 108/63 97 10/07/17 08:03 10/07/17 10:13 10/07/17 10:13 10/07/17 10:13 10/07/17 10:13 Laboratory Results 10/07/17 04:39 10/07/17 04:39 10/06/17 10/07/17 10/08/17 05:59 05:59 05:59 Intake Total 2231 2691.2 Output Total 1410 2410 250 Balance 821 281.2 -250 PT 15.0 SEC (12.0-15.0) 10/04/17 13:35 INR 1.16 (0.83-1.16) 10/04/17 13:35 ICD10 Worksheet Patient Problems: Problems Problem Status Onset Abdominal pain Acute Periumbilical hernia Acute Abdominal pain Acute Abdominal pain, chronic, right lower quadrant Acute Acute Crohn's disease Acute Altered mental status Acute Bronchitis Acute Constipation Acute Crohns disease Acute Crohns disease of small intestine Acute Fever Acute Intra-abdominal abscess Acute Malnutrition Acute Postoperative infection Acute Severe sepsis Acute Vomiting Acute
--- NOTE | 2017-10-07 16:43 | ASMTCMCOM ---
CM Note CM Note Notes: Reviewed chart, spoke with LUCAS Mendieta regarding discharge plan of care, pt's progress. Per prior CM notes, pt has been set up with [facility]. Pt and family have selected [facility] for discharge. Pt's family is also exploring various Assisted Living facilities in the area for after rehab. [facility] will follow pt after discharge. Spoke with DAINA Alexandre to clarify pt's palliative care wishes. Per Sosa, pt may need further treatment and surgery would like to support her wishes. Encouraged Sosa to discuss specific treatments with pt and family directly as no specific orders have been written at this time for comfort measures only. Sosa to further discuss with surgeon and pt. Pt's discharge date remains unclear at this time. Amy is aware. CM will continue to follow. Current Discharge Plan: [facility] with [facility] and [facility]isted Living after rehab Date Signed: 10/07/2017 04:42 PM Electronically Signed By:Taylor Grimes RN
[2017-10-07] MEDS ORDERED: IOPAMIDOL (ISOVUE-300) 100 ML BTL ONE (18:06)
[2017-10-07] MEDS: levOFLOXACIN 500 MG/DEXTROSE 100 ML IV SCH (20:16)
[2017-10-08] MEDS: D5W 1/2 NS W/ 20 KCl/L 1,000 ML IV SCH (05:25)
[2017-10-08] MEDS: FLUoxetine 20 MG CAP PO SCH (08:23)
[2017-10-08] MEDS: oxyCODONE IR 5 MG TAB PO SCH ×3 (08:23→20:39)
[2017-10-08] MEDS: LORazepam 0.5 MG TAB PO SCH ×2 (08:24→20:40)
[2017-10-08] MEDS: PREGABALIN 50 MG CAP PO SCH ×3 (08:24→20:39)
[2017-10-08 10:51] LABS: PLATELET COUNT 397 10^3/uL (150-400)
[2017-10-08] MEDS: HYDROmorphONE/DILAUDID 6 MG/30 ML PCA IV PRN (13:28)
[2017-10-08] MEDS: levOFLOXACIN 500 MG/DEXTROSE 100 ML IV SCH (20:51)
[2017-10-09] MEDS: PREGABALIN 50 MG CAP PO SCH ×3 (09:07→22:14)
[2017-10-09] MEDS: LORazepam 0.5 MG TAB PO SCH ×3 (09:07→22:14)
[2017-10-09] MEDS: FLUoxetine 20 MG CAP PO SCH (09:08)
[2017-10-09] MEDS: oxyCODONE IR 5 MG TAB PO SCH ×3 (09:08→22:40)
[2017-10-09] MEDS ORDERED: HYDROmorphONE/DILAUDID 6 MG/30 ML PCA IV PRN (10:09)
[2017-10-09] MEDS ORDERED: NALOXONE HCL 0.4 MG/ML INJ IVP PRN (10:09)
--- NOTE | 2017-10-09 10:47 | SOAPPROG ---
EMMANUEL Progress Note Assessment/Plan: Assessment/Plan: - 72yo F s/p incarcerated hernia repair, Hx multiple EC fistulas - Farnaz is very upset today. She states her pain is poorly controlled, I have increased her demand dose on her LAST SCOURER in addition to her dose of ativan throughout the day. - She is very adamant that she wants no further interventions and wants to pursue hospice care as previously discussed - she fischer snot want to eat - her abdomen is soft, her LLQ incision site is draining bilious fluid which has slowed significantly since being NPO - will work with case management to set up SNF, hospice care. - >35 minutes spent coordinate care, 50% of which was face to face counseling. 10/09/17 10:44 Subjective: Farnaz is very upset today, upset at her situation, her pain, and is "over it" Objective: Vital Signs Temp Pulse Resp BP Pulse Ox 37.3 C 86 18 116/71 99 10/09/17 10:15 10/09/17 10:15 10/09/17 10:15 10/09/17 10:15 10/09/17 10:15 Laboratory Results 10/08/17 10:42 10/07/17 04:39 10/08/17 10/09/17 10/10/17 05:59 05:59 05:59 Intake Total 2886 2091.2 Output Total 1550 225 150 Balance 1336 1866.2 -150 PT 15.0 SEC (12.0-15.0) 10/04/17 13:35 INR 1.16 (0.83-1.16) 10/04/17 13:35 ICD10 Worksheet Patient Problems: Problems Problem Status Onset Abdominal pain Acute Periumbilical hernia Acute Abdominal pain Acute Abdominal pain, chronic, right lower quadrant Acute Acute Crohn's disease Acute Altered mental status Acute Bronchitis Acute Constipation Acute Crohns disease Acute Crohns disease of small intestine Acute Fever Acute Intra-abdominal abscess Acute Malnutrition Acute Postoperative infection Acute Severe sepsis Acute Vomiting Acute
[2017-10-09] MEDS: HYDROmorphONE/DILAUDID 6 MG/30 ML PCA IV PRN ×2 (10:49→20:15)
[2017-10-09] MEDS: levOFLOXACIN 500 MG/DEXTROSE 100 ML IV SCH (20:19)
[2017-10-10] MEDS: D5W 1/2 NS W/ 20 KCl/L 1,000 ML IV SCH ×2 (03:42→18:26)
[2017-10-10] MEDS: HYDROmorphONE/DILAUDID 6 MG/30 ML PCA IV PRN ×2 (09:39→23:45)
[2017-10-10] MEDS: LORazepam 0.5 MG TAB PO SCH ×3 (10:02→20:40)
[2017-10-10] MEDS: FLUoxetine 20 MG CAP PO SCH (10:03)
[2017-10-10] MEDS: PREGABALIN 50 MG CAP PO SCH ×3 (10:03→20:38)
[2017-10-10] MEDS: oxyCODONE IR 5 MG TAB PO SCH ×3 (10:04→20:41)
[2017-10-10] MEDS ORDERED: D10W 1,000 ML IV PRN (12:30)
--- NOTE | 2017-10-10 12:43 | SOAPPROG ---
SOAP Progress Note Assessment/Plan: Assessment/Plan: 71yo F with complicated surgical history and Crohn's POD#6 s/p open repair of incarcerated ventral hernia, SUHAIL. Depression. Severe protein evangelist malnutrition BMI 19. CT abd showed enterocutaneous fistula, no intra-abd fluid collection or leak. Pt VSS stable, no leukocytosis, no peritonitis. Patient declining further surgical interventions She was requesting hospice care over the weekend, but has changed her mind this morning and is very amenable to current plan Drainage from LLQ incision diminished dramatically over the weekend ( essentially none) since made NPO Continue NPO. Start TPN. PICC today Hope that decreased drainage indicative of improvement of fistula/leak without aggressive intervention. Will continue to monitor. 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 monitor for instability GI - see above FEN - NPO. TPN Heme/ID - ABLA, repeat labs tomorrow. Therapeutic antibiotics PT/OT, dietary following, palliative following Dispo - continue inpatient. [facility] on discharge - pt and family agree that she is unsafe to return home S: had a difficult weekend this morning because pain was not controlled. now currently controlled. she is very upset about current situation. I spent significant time discussing options with her. She is very agreeable to current plan of NPO, TPN and local wound care O: laying in bed, comfortable, NAD no increased work of breathing BS present. Soft, appropriately tender LLQ incisions without surrounding induration or erythema. Packing removed. No staining on outer dressing (last changed yesterday). Wound without reaccumulation of succus - dry. Repacked with plain packing and outer dressing applied. Objective: Vital Signs Temp Pulse Resp BP Pulse Ox 36.7 C 91 16 100/67 93 10/10/17 11:43 10/10/17 11:43 10/10/17 11:43 10/10/17 11:43 10/10/17 11:43 Laboratory Results 10/08/17 10:42 10/07/17 04:39 10/09/17 10/10/17 10/11/17 05:59 05:59 05:59 Intake Total 2091.2 1772 Output Total 225 1250 Balance 1866.2 522 PT 15.0 SEC (12.0-15.0) 10/04/17 13:35 INR 1.16 (0.83-1.16) 10/04/17 13:35 ICD10 Worksheet Patient Problems: Problems Problem Status Onset Abdominal pain Acute Periumbilical hernia Acute Abdominal pain Acute Abdominal pain, chronic, right lower quadrant Acute Acute Crohn's disease Acute Altered mental status Acute Bronchitis Acute Constipation Acute Crohns disease Acute Crohns disease of small intestine Acute Fever Acute Intra-abdominal abscess Acute Malnutrition Acute Postoperative infection Acute Severe sepsis Acute Vomiting Acute
--- NOTE | 2017-10-10 16:57 | ASMTCMCOM ---
FERMIN Note FERMIN Note Notes: Chart reviewed. Victor Hugo from [facility] with patient this am as she has severe pain and stated she was "done" with treatment. She is to go to [facility] with [facility] upon medical clearance for discharge. Her pain is controlled today and she wishes to remain on same plan of care path. Her daughter Annika is to be here tomorrow at some point. Plan is SNF with [facility] to follow. Date Signed: 10/10/2017 04:56 PM Electronically Signed By:Amelia Ross RN
[2017-10-10 18:25] LABS: INR 1.45 (0.83-1.16); PROTIME(PATIENT) 17.8 SEC (12.0-15.0)
[2017-10-10] MEDS: levOFLOXACIN 500 MG/DEXTROSE 100 ML IV SCH (20:36)
[2017-10-11] MEDS: ONDANSETRON 4 MG/2 ML VIAL IVP PRN (04:24)
[2017-10-11 04:50] LABS: PLATELET COUNT 482 10^3/uL (150-400)
[2017-10-11 04:53] LABS: INR 1.61 (0.83-1.16); PROTIME(PATIENT) 19.3 SEC (12.0-15.0)
[2017-10-11] MEDS: FLUoxetine 20 MG CAP PO SCH (09:13)
[2017-10-11] MEDS: oxyCODONE IR 5 MG TAB PO SCH (09:29)
[2017-10-11] MEDS: LORazepam 0.5 MG TAB PO SCH (09:29)
[2017-10-11] MEDS: HYDROmorphONE/DILAUDID 6 MG/30 ML PCA IV PRN ×2 (10:07→22:31)
[2017-10-11] MEDS: PREGABALIN 50 MG CAP PO SCH ×3 (11:12→21:36)
[2017-10-11] MEDS: D5W 1/2 NS W/ 20 KCl/L 1,000 ML IV SCH (11:15)
--- NOTE | 2017-10-11 15:10 | PCMIDPN ---
Assessment/Plan: Assessment/Plan: 1. 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 succus noted. no pus. wound with dressing, not packed at present. - has some periwound erythema today. -currently on levaquin + flagyl - will add vanco given periwound erythema. - will discuss further with surgery - medical records, previous micro data, previous Ct's reviewed. 2. intraabdominal fluid collection, possible abscesses: - Reviewed recentn Ct abd with radiology today. - moderate size area of phlegm and fluid collections measuring 5x6cm, and 3x 2cm. But overall area encompassing moderate area. not connected to area of fistula. Was present prior to surgery. -patient doesn't want more surgery but may consider drain placement if amenable. --Care coordinated with surgery -Discussed with daughters, patient at bedside. meds levquin 750mg daily flagyl 500mg q8- Subjective: afebrile. Asked to see patient due to enterocutaneous fistula. Well known to ID service. Recently care for by our team in August 2017. Was on levaquin + flagyl for supeficial abd wall abscess x 10 days. last dose of that regimen was on 09/16. Now admitted with incarcerated ventral hernia complicated by enterocutanous fistula. has been draining out succus which apparently improved compared to over the weekend. She denies sob, diarrhea. has abd pain but that has been there for sometime. Objective: Vital Signs Temp Pulse Resp BP Pulse Ox 37.2 C 86 16 112/64 99 10/11/17 13:41 10/11/17 13:41 10/11/17 13:41 10/11/17 13:41 10/11/17 13:41 Laboratory Results 10/11/17 04:10 10/11/17 04:10 10/10/17 10/11/17 10/12/17 05:59 05:59 05:59 Intake Total 1772 1002 Output Total 1250 1000 Balance 522 2 - Physical Exam General Appearance: alert, no apparent distress Respiratory: lungs clear Cardiac/Chest: regular rate, rhythm Extremities: No swelling Abdomen: normal bowel sounds, distended, tender (lefet side mild), other ( horizontal incision site which is partially open medially. succus noted. mild blood noted. no pus. mild erythema noted around incision site. warmth appreciated. heidy noted on lateral part of incision. lateral abdomen feel firm and warm compard to right side. mild tender. no rebound or guarding.) Skin: erythema (see above.) - Time Spent With Patient Time Spent with Patient: greater than 35 minutes Time Spent with Patient: Greater than 35 minutes spent on this patients care, greater than 50% of time spent counseling, educating, and coordinating care regarding the above mentioned plan. ICD10 Worksheet Patient Problems: Problems Problem Status Onset Abdominal pain Acute Periumbilical hernia Acute Abdominal pain Acute Abdominal pain, chronic, right lower quadrant Acute Acute Crohn's disease Acute Altered mental status Acute Bronchitis Acute Constipation Acute Crohns disease Acute Crohns disease of small intestine Acute Fever Acute Intra-abdominal abscess Acute Malnutrition Acute Postoperative infection Acute Severe sepsis Acute Vomiting Acute
[2017-10-11] MEDS: ACETAMINOPHEN 325 MG TAB PO PRN (16:10)
[2017-10-11] MEDS: VANCOMYCIN 500 MG in D5W 100 ML IV SCH (16:12)
--- NOTE | 2017-10-11 16:15 | SOAPPROG ---
SOAP Progress Note Assessment/Plan: Assessment/Plan: 71yo F with complicated surgical history and Crohn's POD#6 s/p open repair of incarcerated ventral hernia, SUHAIL. Depression. Severe protein evangelist malnutrition BMI 19. CT abd showed enterocutaneous fistula, no leak. Pt VSS stable, no leukocytosis, no peritonitis. Patient declining further surgical interventions She was requesting hospice care over the weekend, but has changed her mind and is very amenable to current plan Drainage from LLQ incision diminished dramatically over the weekend ( essentially none) since made NPO Continue NPO. TPN. Hope that decreased drainage indicative of improvement of fistula/leak without aggressive intervention. Will continue to monitor. 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 DC home PO pain meds Resp - IS Cards - no current issues. monitor for instability GI - see above FEN - NPO. TPN Heme/ID - ABLA, transfusion today. Therapeutic antibiotics. ID consultation appreciated PT/OT, dietary following, palliative following Dispo - continue inpatient. Powerback on discharge - pt and family agree that she is unsafe to return home S: no pain. Feels groggy this morning. She is very agreeable to current plan of NPO, TPN and local wound care - monitoring O: laying in bed, comfortable, NAD no increased work of breathing BS present. Soft, relatively nontender LLQ incisions without surrounding induration or erythema. Packing removed. No tunneling. Wound without reaccumulation of succus - dry. Outer dressing applied Objective: Vital Signs Temp Pulse Resp BP Pulse Ox 37.2 C 86 16 112/64 99 10/11/17 13:41 10/11/17 13:41 10/11/17 13:41 10/11/17 13:41 10/11/17 13:41 Laboratory Results 10/11/17 04:10 10/11/17 04:10 10/10/17 10/11/17 10/12/17 05:59 05:59 05:59 Intake Total 1772 1002 Output Total 1250 1000 Balance 522 2 PT 19.3 SEC (12.0-15.0) H 10/11/17 04:10 INR 1.61 (0.83-1.16) H 10/11/17 04:10 ICD10 Worksheet Patient Problems: Problems Problem Status Onset Abdominal pain Acute Periumbilical hernia Acute Abdominal pain Acute Abdominal pain, chronic, right lower quadrant Acute Acute Crohn's disease Acute Altered mental status Acute Bronchitis Acute Constipation Acute Crohns disease Acute Crohns disease of small intestine Acute Fever Acute Intra-abdominal abscess Acute Malnutrition Acute Postoperative infection Acute Severe sepsis Acute Vomiting Acute
[2017-10-11] MEDS: levOFLOXACIN 500 MG/DEXTROSE 100 ML IV SCH (19:58)
[2017-10-11] MEDS: TPN 1 EA BAG IV SCH (22:29)
[2017-10-11] MEDS: NS 1,000 ML IV SCH (22:34)
[2017-10-12] MEDS: HYDROmorphONE/DILAUDID 6 MG/30 ML PCA IV PRN ×3 (01:31→15:54)
[2017-10-12 04:47] LABS: PLATELET COUNT 431 10^3/uL (150-400)
[2017-10-12 06:53] LABS: INR 1.66 (0.83-1.16)
[2017-10-12 07:15] LABS: PROTIME(PATIENT) 19.7 SEC (12.0-15.0)
[2017-10-12] MEDS: PREGABALIN 50 MG CAP PO SCH ×3 (08:12→21:50)
[2017-10-12] MEDS: FLUoxetine 20 MG CAP PO SCH (08:13)
[2017-10-12] MEDS ORDERED: NS 1,000 ML IV ONE (08:28)
--- NOTE | 2017-10-12 15:28 | SOAPPROG ---
SOAP Progress Note Assessment/Plan: Assessment: s/p ex lap, lysis of adhesions, hernia repair malnutrition BMI 19 depression Had bilious fluid from abdomen on Tuesday. CT scan with fistula. No drainage since starting TPN and being NPO Intrabdominal fluid collection stable WBC up today. Discussed IR drainage with Farnaz today who declined. She is not sure if she wants to pursue any additional procedures. I discussed that WBC is 14K. Will check WBC again in am and go from there. 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 FEN - NPO and TPN while fistula healing Dispo - continue inpatient. Powerback on discharge S: Fever yesterday, feels okay today O: CTAB, no increased work of breathing Regular rate BS present Soft, appropriately tender dressing dry Plan: 10/06/17 22:12 10/12/17 15:11 10/12/17 17:12 Objective: Vital Signs Temp Pulse Resp BP Pulse Ox 37.6 C 95 18 121/75 H 89 L 10/12/17 13:54 10/12/17 13:54 10/12/17 13:54 10/12/17 13:54 10/12/17 13:54 Laboratory Results 10/12/17 04:30 10/12/17 04:30 10/11/17 10/12/17 10/13/17 05:59 05:59 05:59 Intake Total 1002 2654 Output Total 1000 1350 700 Balance 2 1304 -700 PT 19.7 SEC (12.0-15.0) H 10/12/17 04:30 INR 1.66 (0.83-1.16) H 10/12/17 04:30 ICD10 Worksheet Patient Problems: Problems Problem Status Onset Abdominal pain Acute Periumbilical hernia Acute Abdominal pain Acute Abdominal pain, chronic, right lower quadrant Acute Acute Crohn's disease Acute Altered mental status Acute Bronchitis Acute Constipation Acute Crohns disease Acute Crohns disease of small intestine Acute Fever Acute Intra-abdominal abscess Acute Malnutrition Acute Postoperative infection Acute Severe sepsis Acute Vomiting Acute
[2017-10-12] MEDS: VANCOMYCIN 500 MG in D5W 100 ML IV SCH (16:46)
[2017-10-12] MEDS: LORazepam 2 MG/ML INJ IVP PRN (19:39)
[2017-10-12] MEDS: levOFLOXACIN 500 MG/DEXTROSE 100 ML IV SCH (20:26)
[2017-10-12] MEDS: TPN 1 EA BAG IV SCH (20:30)
[2017-10-13 04:09] LABS: INR 1.73 (0.83-1.16); PROTIME(PATIENT) 20.4 SEC (12.0-15.0)
[2017-10-13 04:11] LABS: PLATELET COUNT 455 10^3/uL (150-400)
[2017-10-13] MEDS: HYDROmorphONE/DILAUDID 6 MG/30 ML PCA IV PRN ×3 (06:12→22:35)
[2017-10-13] MEDS: LORazepam 2 MG/ML INJ IVP PRN (09:18)
[2017-10-13] MEDS: FLUoxetine 20 MG CAP PO SCH (09:19)
[2017-10-13] MEDS: PREGABALIN 50 MG CAP PO SCH ×3 (09:19→22:14)
--- NOTE | 2017-10-13 10:35 | PCMIDPN ---
Assessment/Plan: Assessment: Abdominal fistula. Secondary to ventral hernia. Patient has increased amounts of bilious drainage even though her white blood cell count is decreased down to 11,000 today. Patient has leaked through her abdominal bandage in the last 2 hr. Discussion with patient and her daughters about the knee for some sort of diversion every intervention. Text into trach in. We will discuss case with her. Meanwhile will continue the ongoing coverage with vancomycin, Levaquin and Flagyl. Patient has agreed to interventional radiology drainage of abdominal collections. Will place this order. Plan: 1. Continue IV Levaquin, Flagyl and vancomycin. 2. Check vancomycin trough prior to 4th dose. New line 3. Interventional drainage of abdominal collections. Subjective: Patient is resting in her hospital bed. She has significant amounts of bilious saturation on her abdominal dressing. Had a pain crisis last night which is totally abated by this point. Daughters are in room. Long discussion ensued about course going forward. Objective: Levaquin # 8 Metronidazole # 7 Vancomycin # 1 Vital Signs Temp Pulse Resp BP Pulse Ox 36.7 C 77 16 105/62 93 10/13/17 08:20 10/13/17 08:20 10/13/17 08:20 10/13/17 08:20 10/13/17 08:20 Laboratory Results 10/13/17 03:50 10/13/17 03:50 10/12/17 10/13/17 10/14/17 05:59 05:59 05:59 Intake Total 2654 2064 899 Output Total 1350 1600 Balance 1304 464 899 - Physical Exam General Appearance: WD/WN, alert, no apparent distress, non-toxic Respiratory: lungs clear, normal breath sounds, No respiratory distress Cardiac/Chest: regular rate, rhythm, No tachycardia Abdomen: non-tender, soft, distended (Mildly), other (Draining fistula mid abdomen with irritated/macerated christiano wound skin. Bilious drainage.), No mass Skin: normal color, warm/dry, No rash Neuro/Psych: alert, normal mood/affect, oriented x 3 ICD10 Worksheet Patient Problems: Problems Problem Status Onset Abdominal pain Acute Periumbilical hernia Acute Abdominal pain Acute Abdominal pain, chronic, right lower quadrant Acute Acute Crohn's disease Acute Altered mental status Acute Bronchitis Acute Constipation Acute Crohns disease Acute Crohns disease of small intestine Acute Fever Acute Intra-abdominal abscess Acute Malnutrition Acute Postoperative infection Acute Severe sepsis Acute Vomiting Acute
[2017-10-13] MEDS: NS 1,000 ML IV SCH (14:40)
[2017-10-13] MEDS ORDERED: MIDAZOLAM 2 MG/2 ML VIAL ONE (15:54)
[2017-10-13] MEDS ORDERED: HYDROmorphONE/DILAUDID 2 MG/ML INJ ONE (15:54)
[2017-10-13] MEDS ORDERED: FLUMAZENIL 0.5 MG/5 ML MDV IVP ONE (15:55)
[2017-10-13] MEDS ORDERED: MIDAZOLAM 2 MG/2 ML VIAL IVP PRN (16:03)
[2017-10-13] MEDS ORDERED: FLUMAZENIL 0.5 MG/5 ML MDV IVP PRN (16:03)
--- NOTE | 2017-10-13 16:04 | ASMTCMCOM ---
CM Note CM Note Notes: RN today indicated that pt has been expressing a wish to "give up." Asked Victor Hugo in palliative care to request that [facility] meet with pt in next few days for support. Pt has previously been set up with [facility]. Date Signed: 10/13/2017 04:03 PM Electronically Signed By:Germaine Pruitt LCSW
--- NOTE | 2017-10-13 17:51 | PDPROPOC ---
Sedation Plan of Care Sedation Plan of Care: vital signs stable, mental status noted, patient educated of risks, benefits, alternatives, patient can tolerate sedation ASA Classification: ASA 3 Planned drugs: midazolam, other Mallampati Score: Class 2 Mallampati Reference Image: Patient passed 3-3-2 rule?: Yes
--- NOTE | 2017-10-13 17:55 | PDRADPN ---
Radiology Procedure Note Date of Procedure: 10/13/17 Radiologist: Bryce Conklin Refinery Operator Coking(s): Meghan BRODY Anesthesia: IV Sedation (Versed and Dilaudid) Pre-op Diagnosis: Intraperitoneal fluid collection and cutaneous fistula. Post-op Diagnosis: Intraperitoneal fluid collection and cutaneous fistula. Indication: Intraperitoneal fluid collection and cutaneous fistula. Procedure: CT guided percutaneous 10 Fr pigtail drain for intraperitoneal collection Finding(s): Good position of drain. Nicely evacuated peritoneal fluid collection. Inf/Abcess present in the surg proc area at time of surgery?: Yes Depth: Organ Space (Peritoneal space) EBL: Minimal (None) Complications: No immediate complication. Drains: Other (10 Fr percutaneous pigtail drain)
[2017-10-13] MEDS: VANCOMYCIN 500 MG in D5W 100 ML IV SCH (19:00)
--- NOTE | 2017-10-13 20:55 | SOAPPROG ---
SOAP Progress Note Assessment/Plan: Assessment: s/p ex lap, lysis of adhesions, hernia repair malnutrition BMI 19 depression Had bilious fluid from abdomen on Tuesday. CT scan with fistula. Did not have any drainage until today Went to CT to have fluid collection drained. Collection in left abdomen no longer visible but anterior collection drained. Difficult situation. Discussed with her daughter Zion. 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 FEN - NPO and TPN while fistula healing Dispo - continue inpatient. Powerback on discharge S: Had pain crisis last night that resolved. Passing flatus O: CTAB, no increased work of breathing Regular rate BS present Bilious drainage on Allevyn. Allevyn changed Plan: 10/06/17 22:12 10/12/17 15:11 10/12/17 17:12 10/13/17 20:51 Objective: Vital Signs Temp Pulse Resp BP Pulse Ox 36.6 C 80 17 98/62 L 99 10/13/17 20:00 10/13/17 20:00 10/13/17 20:00 10/13/17 20:00 10/13/17 20:00 Microbiology 10/13/17 17:45 Gram Stain - Final Peritoneal Fluid - Aspirate Laboratory Results 10/13/17 03:50 10/13/17 03:50 10/12/17 10/13/17 10/14/17 05:59 05:59 05:59 Intake Total 2654 2064 2302 Output Total 1350 1600 510 Balance 1997 888 4736 PT 20.4 SEC (12.0-15.0) H 10/13/17 03:50 INR 1.73 (0.83-1.16) H 10/13/17 03:50 ICD10 Worksheet Patient Problems: Problems Problem Status Onset Abdominal pain Acute Periumbilical hernia Acute Abdominal pain Acute Abdominal pain, chronic, right lower quadrant Acute Acute Crohn's disease Acute Altered mental status Acute Bronchitis Acute Constipation Acute Crohns disease Acute Crohns disease of small intestine Acute Fever Acute Intra-abdominal abscess Acute Malnutrition Acute Postoperative infection Acute Severe sepsis Acute Vomiting Acute
[2017-10-13] MEDS: levOFLOXACIN 500 MG/DEXTROSE 100 ML IV SCH (22:18)
[2017-10-13] MEDS: TPN 1 EA BAG IV SCH (22:26)
[2017-10-14] MEDS: HYDROmorphONE/DILAUDID 6 MG/30 ML PCA IV PRN ×2 (04:20→12:45)
[2017-10-14 04:53] LABS: PLATELET COUNT 420 10^3/uL (150-400)
[2017-10-14 05:02] LABS: INR 1.72 (0.83-1.16); PROTIME(PATIENT) 20.3 SEC (12.0-15.0)
[2017-10-14] MEDS: LORazepam 2 MG/ML INJ IVP PRN ×2 (09:03→21:28)
[2017-10-14] MEDS: PREGABALIN 50 MG CAP PO SCH ×3 (09:03→21:14)
[2017-10-14] MEDS: FLUoxetine 20 MG CAP PO SCH (09:03)
--- NOTE | 2017-10-14 11:54 | WOCRNPDOC ---
WOCRN Advanced Assessment Note - Skin Integrity Problem, Advanced Assess Medial Abdomen Dressing Type: ABD Pad Exudate Amount: Scant Exudate Color: Reddish/Yellow Exudate Characteristic(s): Serosanguinous Integumentary Issue Intervention: Dressing Applied Kenzie Wound Tissue: Denuded (mild) Kenzie Wound Swelling: Mild Wound Bed Color: [place], Yellow Wound Bed Constitution: Red/[place] - Non Granular Tissue (40%), Fistula ( enterocutaneous), Adhered Slough (60%) Site Odor: None Site Measurement - Head-to-Toe Length X Width X Depth (cm): [id number] Skin Integrity Problem Comment: Wound on L medial abdomen w/ entercutaneous fistula within. This was previously producing moderate serosanguinous/bilious exudate. Per nursing, today output is significantly decreased. Some mildly denuded skin periwound r/t drainage. Rather than pouching with an ostomy appliance, applied Allevyn 4x4 today; dressing change order specifies to switch back to ABD if drainage increases and saturates Allevyn. In addition, periwound skin crusted using stoma powder and skin prep to provide protective barrier against exudate. Will follow up on Tuesday to assess.
--- NOTE | 2017-10-14 12:11 | ASMTCMCOM ---
CM Note CM Note Notes: Sent updates to [facility] today. Also asked [facility] if someone could come to meet with pt for support while she is still at [facility]. Date Signed: 10/14/2017 12:10 PM Electronically Signed By:Germaine Pruitt LCSW
--- NOTE | 2017-10-14 13:48 | PCMIDPN ---
Assessment/Plan: Assessment/Plan: * Enterocutaneous fistula/abdominal abscess status post percutaneous drainage: Gram stain of material negative with culture pending. Purulent appearing output in JAS bulb. Continue empiric vancomycin, levofloxacin and metronidazole. Vancomycin trough scheduled for today. Await cultures with modification of antibiotic therapy accordingly. Will review further with Dr. Yee. 10/14/17 13:44 Subjective: No significant abdominal pain. Status post percutaneous drainage of intra- abdominal fluid collection with drain placement yesterday. Objective: Vital Signs Temp Pulse Resp BP Pulse Ox 36.5 C 74 16 112/68 97 10/14/17 12:00 10/14/17 12:00 10/14/17 12:00 10/14/17 12:00 10/14/17 12:00 Microbiology 10/13/17 17:45 Gram Stain - Final Peritoneal Fluid - Aspirate Laboratory Results 10/14/17 04:40 10/14/17 08:53 10/13/17 10/14/17 10/15/17 05:59 05:59 05:59 Intake Total 2064 2302 Output Total 1600 1540 420 Balance 464 762 -420 Levofloxacin # 9 Metronidazole # 8 Vancomycin # 2 - Physical Exam General Appearance: alert, no apparent distress, thin EENT: No scleral icterus, No thrush Respiratory: lungs clear, No respiratory distress Cardiac/Chest: regular rate, rhythm Abdomen: non-tender, other (JAS bulb with purulent output; wound with scattered fibrinous slough and minimal drainage on Allevyn dressing), No distended ICD10 Worksheet Patient Problems: Problems Problem Status Onset Abdominal pain Acute Periumbilical hernia Acute Abdominal pain Acute Abdominal pain, chronic, right lower quadrant Acute Acute Crohn's disease Acute Altered mental status Acute Bronchitis Acute Constipation Acute Crohns disease Acute Crohns disease of small intestine Acute Fever Acute Intra-abdominal abscess Acute Malnutrition Acute Postoperative infection Acute Severe sepsis Acute Vomiting Acute
[2017-10-14] MEDS: VANCOMYCIN 500 MG in D5W 100 ML IV SCH ×2 (16:31→16:58)
--- NOTE | 2017-10-14 17:11 | SOAPPROG ---
SOAP Progress Note Assessment/Plan: Assessment: s/p ex lap, lysis of adhesions, hernia repair malnutrition BMI 19 depression Had bilious fluid from abdomen on Tuesday. CT scan with fistula. Drain in anterior collection WBC improved Bilious fluid in drain Difficult situation. Discussed with her daughter Zion. 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 Powerback on discharge S: Feeling better today O: CTAB, no increased work of breathing Regular rate BS present JAS with bilious fluid. Allevyn is dry Plan: 10/06/17 22:12 10/12/17 15:11 10/12/17 17:12 10/13/17 20:51 10/14/17 17:08 Objective: Vital Signs Temp Pulse Resp BP Pulse Ox 36.6 C 68 16 113/67 98 10/14/17 16:00 10/14/17 16:00 10/14/17 16:00 10/14/17 16:00 10/14/17 16:00 Microbiology 10/13/17 17:45 Gram Stain - Final Peritoneal Fluid - Aspirate Laboratory Results 10/14/17 04:40 10/14/17 08:53 10/13/17 10/14/17 10/15/17 05:59 05:59 05:59 Intake Total 2064 2302 Output Total 1600 1540 430 Balance 464 762 -430 PT 20.3 SEC (12.0-15.0) H 10/14/17 04:40 INR 1.72 (0.83-1.16) H 10/14/17 04:40 ICD10 Worksheet Patient Problems: Problems Problem Status Onset Abdominal pain Acute Periumbilical hernia Acute Abdominal pain Acute Abdominal pain, chronic, right lower quadrant Acute Acute Crohn's disease Acute Altered mental status Acute Bronchitis Acute Constipation Acute Crohns disease Acute Crohns disease of small intestine Acute Fever Acute Intra-abdominal abscess Acute Malnutrition Acute Postoperative infection Acute Severe sepsis Acute Vomiting Acute
[2017-10-14] MEDS: TPN 1 EA BAG IV SCH (21:00)
[2017-10-14] MEDS: levOFLOXACIN 500 MG/DEXTROSE 100 ML IV SCH (21:14)
[2017-10-15] MEDS: HYDROmorphONE/DILAUDID 6 MG/30 ML PCA IV PRN ×3 (00:19→23:04)
[2017-10-15] MEDS: VANCOMYCIN 500 MG in D5W 100 ML IV SCH ×2 (03:47→16:30)
[2017-10-15 05:30] LABS: PLATELET COUNT 472 10^3/uL (150-400)
[2017-10-15] MEDS: LORazepam 2 MG/ML INJ IVP PRN ×2 (09:06→17:58)
[2017-10-15] MEDS: PREGABALIN 50 MG CAP PO SCH ×3 (10:53→22:25)
[2017-10-15] MEDS: FLUoxetine 20 MG CAP PO SCH (10:53)
--- NOTE | 2017-10-15 12:12 | SOAPPROG ---
SOAP Progress Note Assessment/Plan: Assessment: 72 y/o F s/p ex lap, SUHAIL and incarcerated hernia repair S/p drain placement for fistula S: Improved. O: Alert Afebrile No increase WOB WBC count trending down Abdomen: drain in place with bilious fluid. 55ml out in last 24 hours. Plan: Seen with Dr. Yee. Continue NPO and TPN to allow for fistula to heal. Continue inpatient status. 10/15/17 12:13 Objective: Vital Signs Temp Pulse Resp BP Pulse Ox 37.0 C 81 16 121/68 H 95 10/15/17 08:00 10/15/17 10:00 10/15/17 10:00 10/15/17 10:00 10/15/17 10:00 Microbiology 10/13/17 17:45 Gram Stain - Final Peritoneal Fluid - Aspirate Laboratory Results 10/15/17 05:10 10/14/17 08:53 10/14/17 10/15/17 10/16/17 05:59 05:59 05:59 Intake Total 2302 1172.3 Output Total 1540 1855 Balance 762 -682.7 PT 20.3 SEC (12.0-15.0) H 10/14/17 04:40 INR 1.72 (0.83-1.16) H 10/14/17 04:40 ICD10 Worksheet Patient Problems: Problems Problem Status Onset Abdominal pain Acute Periumbilical hernia Acute Abdominal pain Acute Abdominal pain, chronic, right lower quadrant Acute Acute Crohn's disease Acute Altered mental status Acute Bronchitis Acute Constipation Acute Crohns disease Acute Crohns disease of small intestine Acute Fever Acute Intra-abdominal abscess Acute Malnutrition Acute Postoperative infection Acute Severe sepsis Acute Vomiting Acute
[2017-10-15] MEDS ORDERED: FLUCONAZOLE/NaCl 100 ML IV SCH (14:30)
--- NOTE | 2017-10-15 15:54 | PCMIDPN ---
Assessment/Plan: Assessment/Plan: * Enterocutaneous fistula/abdominal abscess status post percutaneous drainage: Abdominal fluid culture now showing growth of Staphylococcus epidermidis and presumptive Mayra albicans. Will continue vancomycin which will target Staphylococcus epidermidis. Will add micafungin (favor over fluconazole given complex drug interactions with both Prozac and levofloxacin with potential for QT prolongation) given growth of Mayra albicans. Continue levofloxacin and metronidazole as mixed enteric azam may also be contributing. Vancomycin dose increased yesterday based on trough less than 5. 10/15/17 15:50 10/15/17 15:54 10/15/17 15:57 Subjective: Patient without specific complaints. Notes green drainage in JAS bulb. Objective: Vital Signs Temp Pulse Resp BP Pulse Ox 37.0 C 81 16 110/72 94 10/15/17 08:00 10/15/17 12:00 10/15/17 12:00 10/15/17 12:00 10/15/17 12:00 Microbiology 10/13/17 17:45 Gram Stain - Final Peritoneal Fluid - Aspirate Laboratory Results 10/15/17 05:10 10/14/17 08:53 10/14/17 10/15/17 10/16/17 05:59 05:59 05:59 Intake Total 2302 1172.3 Output Total 1540 1855 Balance 762 -682.7 Levofloxacin #10 Metronidazole #9 Vancomycin #3 Abscess cultures with growth of Staphylococcus epidermidis and presumptive Mayra albicans Laboratory Tests 10/14/17 15:00 Vancomycin Trough < 5.0 L - Physical Exam General Appearance: alert, no apparent distress, thin EENT: No scleral icterus, No thrush Cardiac/Chest: regular rate, rhythm Abdomen: tender (Mild right upper quadrant), other (JAS bulb with bilious output) - Line/s RUE PICC Lines: No drainage, No erythema ICD10 Worksheet Patient Problems: Problems Problem Status Onset Abdominal pain Acute Periumbilical hernia Acute Abdominal pain Acute Abdominal pain, chronic, right lower quadrant Acute Acute Crohn's disease Acute Altered mental status Acute Bronchitis Acute Constipation Acute Crohns disease Acute Crohns disease of small intestine Acute Fever Acute Intra-abdominal abscess Acute Malnutrition Acute Postoperative infection Acute Severe sepsis Acute Vomiting Acute
[2017-10-15] MEDS: MICAFUNGIN NA 100 MG in NS 100 ML IV SCH (17:58)
[2017-10-15] MEDS: levOFLOXACIN 500 MG/DEXTROSE 100 ML IV SCH (20:53)
[2017-10-15] MEDS: TPN 1 EA BAG IV SCH (20:53)
[2017-10-16 03:17] LABS: PLATELET COUNT 478 10^3/uL (150-400)
[2017-10-16] MEDS: VANCOMYCIN 500 MG in D5W 100 ML IV SCH ×2 (04:59→18:19)
[2017-10-16] MEDS: LORazepam 2 MG/ML INJ IVP PRN ×3 (05:14→17:19)
[2017-10-16] MEDS: FLUoxetine 20 MG CAP PO SCH (08:54)
[2017-10-16] MEDS: PREGABALIN 50 MG CAP PO SCH ×3 (08:54→23:00)
--- NOTE | 2017-10-16 09:52 | SOAPPROG ---
SOAP Progress Note Assessment/Plan: Assessment: 72 y/o F s/p ex lap, SUHAIL and incarcerated hernia repair S/p drain placement for fistula S: Improved. O: Alert Afebrile No increase WOB WBC count trending down Abdomen: drain in place with bilious fluid. 55ml out in last 24 hours. Plan: Seen with Dr. Yee. Continue NPO and TPN to allow for fistula to heal. Continue inpatient status. 10/15/17 12:13 10/16/17 09:51 Anxious today. Getting up to go outside after visit. Drain in place with bilious fluid. Continue current plan. Dr. Yee to see pt later today. Objective: Vital Signs Temp Pulse Resp BP Pulse Ox 36.7 C 67 17 123/82 H 98 10/16/17 07:38 10/16/17 07:38 10/16/17 07:38 10/16/17 07:38 10/16/17 07:38 Microbiology 10/13/17 17:45 Gram Stain - Final Peritoneal Fluid - Aspirate Laboratory Results 10/16/17 02:50 10/14/17 08:53 10/15/17 10/16/17 10/17/17 05:59 05:59 05:59 Intake Total 1172.3 1050 Output Total 1855 325 Balance -682.7 725 PT 20.3 SEC (12.0-15.0) H 10/14/17 04:40 INR 1.72 (0.83-1.16) H 10/14/17 04:40 ICD10 Worksheet Patient Problems: Problems Problem Status Onset Abdominal pain Acute Periumbilical hernia Acute Abdominal pain Acute Abdominal pain, chronic, right lower quadrant Acute Acute Crohn's disease Acute Altered mental status Acute Bronchitis Acute Constipation Acute Crohns disease Acute Crohns disease of small intestine Acute Fever Acute Intra-abdominal abscess Acute Malnutrition Acute Postoperative infection Acute Severe sepsis Acute Vomiting Acute
--- NOTE | 2017-10-16 11:25 | PCMIDPN ---
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 Continue vancomycin, levofloxacin, metronidazole, and micafungin as outlined 10/15/17. Reassess vancomycin trough today after dose adjustment to q12 hour dosing. * Right upper extremity pain: Will obtain U/S to assess for PICC associated DVT. 10/16/17 11:21 Subjective: Complains of right upper extremity pain after sleeping on arm with PICC last night. Objective: Vital Signs Temp Pulse Resp BP Pulse Ox 36.7 C 90 16 123/88 H 97 10/16/17 07:38 10/16/17 10:00 10/16/17 10:00 10/16/17 10:00 10/16/17 10:00 Microbiology 10/13/17 17:45 Gram Stain - Final Peritoneal Fluid - Aspirate Laboratory Results 10/16/17 02:50 10/14/17 08:53 10/15/17 10/16/17 10/17/17 05:59 05:59 05:59 Intake Total 1172.3 1050 Output Total 1855 325 33 Balance -682.7 725 -33 Levofloxacin #11 Metronidazole #10 Vancomycin #4 Micafungin #2 Abscess cultures: S. epi, C. albicans - Physical Exam General Appearance: alert, thin, non-toxic EENT: No scleral icterus, No thrush Respiratory: lungs clear, No respiratory distress Cardiac/Chest: regular rate, rhythm Extremities: inflammation (right upper extremity with tenderness over palpable cord above PICC insertion for approximately 3-4 cm; no erythema) Abdomen: tender (diffusely and mild), other (bilious output JAS drain) ICD10 Worksheet Patient Problems: Problems Problem Status Onset Abdominal pain Acute Periumbilical hernia Acute Abdominal pain Acute Abdominal pain, chronic, right lower quadrant Acute Acute Crohn's disease Acute Altered mental status Acute Bronchitis Acute Constipation Acute Crohns disease Acute Crohns disease of small intestine Acute Fever Acute Intra-abdominal abscess Acute Malnutrition Acute Postoperative infection Acute Severe sepsis Acute Vomiting Acute
[2017-10-16] MEDS ORDERED: ALTEPLASE 2 MG VIAL IVP PRN (13:11)
[2017-10-16] MEDS ORDERED: HEPARIN 10,000 UNIT/10 ML MDV (1,000 UNIT/ML) IVP ONE (13:28)
[2017-10-16] MEDS ORDERED: HEPARIN/DEXTROSE 500 ML IV SCH (13:30)
[2017-10-16 14:00] LABS: PLATELET COUNT 486 10^3/uL (150-400)
[2017-10-16 14:13] LABS: INR 1.46 (0.83-1.16); PROTIME(PATIENT) 17.9 SEC (12.0-15.0)
--- NOTE | 2017-10-16 15:31 | PDRADPN ---
Radiology Procedure Note Date of Procedure: 10/16/17 Radiologist: Pato Colon Anesthesia: Local (Specify) Pre-op Diagnosis: clotted RUE PICC Post-op Diagnosis: same Indication: venous access Procedure: LUE PICC Finding(s): tip of new picc at upper SVC. ok to use Inf/Abcess present in the surg proc area at time of surgery?: No Complications: none
[2017-10-16] MEDS: HYDROmorphONE/DILAUDID 6 MG/30 ML PCA IV PRN (17:53)
--- NOTE | 2017-10-16 19:21 | SOAPPROG ---
SOAP Progress Note Assessment/Plan: Assessment: s/p ex lap, lysis of adhesions, hernia repair malnutrition BMI 19 depression Enterocutaneous fistula appreciate ID R arm painful today - us with DVT. Replaced PICC Started Heparin drip - will discuss with heme tomorrow if anticoagulation needed. Drain in anterior collection Difficult situation. 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 [facility] on discharge S: Having issues with memory O: CTAB, no increased work of breathing Regular rate BS present JAS with bilious fluid. Allevyn is dry Plan: 10/06/17 22:12 10/12/17 15:11 10/12/17 17:12 10/13/17 20:51 10/14/17 17:08 10/16/17 19:19 Objective: Vital Signs Temp Pulse Resp BP Pulse Ox 36.9 C 90 18 126/77 H 93 10/16/17 16:00 10/16/17 18:00 10/16/17 18:00 10/16/17 13:54 10/16/17 18:00 Microbiology 10/13/17 17:45 Gram Stain - Final Peritoneal Fluid - Aspirate Laboratory Results 10/16/17 13:50 10/16/17 11:50 10/15/17 10/16/17 10/17/17 05:59 05:59 05:59 Intake Total 1172.3 1050 Output Total 1855 325 33 Balance -682.7 725 -33 PT 17.9 SEC (12.0-15.0) H 10/16/17 13:50 INR 1.46 (0.83-1.16) H 10/16/17 13:50 ICD10 Worksheet Patient Problems: Problems Problem Status Onset Abdominal pain Acute Periumbilical hernia Acute Abdominal pain Acute Abdominal pain, chronic, right lower quadrant Acute Acute Crohn's disease Acute Altered mental status Acute Bronchitis Acute Constipation Acute Crohns disease Acute Crohns disease of small intestine Acute Fever Acute Intra-abdominal abscess Acute Malnutrition Acute Postoperative infection Acute Severe sepsis Acute Vomiting Acute
[2017-10-16] MEDS: MICAFUNGIN NA 100 MG in NS 100 ML IV SCH (19:32)
[2017-10-16] MEDS: TPN 1 EA BAG IV SCH (22:55)
[2017-10-16] MEDS: levOFLOXACIN 500 MG/DEXTROSE 100 ML IV SCH (23:00)
[2017-10-17] MEDS: HEPARIN 10,000 UNIT/10 ML MDV (1,000 UNIT/ML) IVP PRN ×2 (02:24→12:26)
[2017-10-17] MEDS: LORazepam 2 MG/ML INJ IVP PRN ×4 (04:10→22:40)
[2017-10-17 04:34] LABS: PLATELET COUNT 470 10^3/uL (150-400)
[2017-10-17 04:37] LABS: INR 1.45 (0.83-1.16); PROTIME(PATIENT) 17.8 SEC (12.0-15.0)
[2017-10-17] MEDS: VANCOMYCIN 500 MG in D5W 100 ML IV SCH ×2 (05:01→16:29)
[2017-10-17] MEDS: FLUoxetine 20 MG CAP PO SCH (09:15)
[2017-10-17] MEDS: PREGABALIN 50 MG CAP PO SCH ×3 (09:15→22:28)
[2017-10-17] MEDS: HYDROmorphONE/DILAUDID 6 MG/30 ML PCA IV PRN (11:14)
--- NOTE | 2017-10-17 11:29 | PCMIDPN ---
Assessment/Plan: Assessment: Abdominal fistula. Secondary to ventral hernia. Patient now with abdominal collections which have been drained. The crux of the problem currently is that the patient has a significant amount of scar tissue within her abdominal cavity making surgery much more complicated. She clearly has a fistula which is connecting bowel to skin surface. The question is whether additional intervention surgically is in her best interest and if it is where such a procedure should be done. Plan: 1. Continue IV Levaquin, Flagyl vancomycin and micafungin. 2. Follow clinical course. 10/17/17 12:39 Subjective: Patient is resting in her hospital bed. She reports no new complaints. She is asking how much longer she needs to be inpatient for this condition. She has no fevers or chills. No rash. Continues to have drainage from her abdominal wound. Objective: Levofloxacin # 12 Metronidazole # 11 Vancomycin # 5 Micafungin # 3 Vital Signs Temp Pulse Resp BP Pulse Ox 36.8 C 75 16 147/77 H 97 10/17/17 08:00 10/17/17 08:00 10/17/17 08:00 10/17/17 08:00 10/17/17 08:00 Microbiology 10/13/17 17:45 Gram Stain - Final Peritoneal Fluid - Aspirate Laboratory Results 10/17/17 04:20 10/17/17 04:20 10/16/17 10/17/17 10/18/17 05:59 05:59 05:59 Intake Total 1050 Output Total 325 618 Balance 725 -618 - Physical Exam General Appearance: WD/WN, alert, no apparent distress, non-toxic Respiratory: lungs clear, normal breath sounds, No respiratory distress Cardiac/Chest: regular rate, rhythm, No tachycardia Abdomen: non-tender, soft, No mass Skin: normal color, warm/dry, No rash Neuro/Psych: alert, normal mood/affect, oriented x 3 ICD10 Worksheet Patient Problems: Problems Problem Status Onset Abdominal pain Acute Periumbilical hernia Acute Abdominal pain Acute Abdominal pain, chronic, right lower quadrant Acute Acute Crohn's disease Acute Altered mental status Acute Bronchitis Acute Constipation Acute Crohns disease Acute Crohns disease of small intestine Acute Fever Acute Intra-abdominal abscess Acute Malnutrition Acute Postoperative infection Acute Severe sepsis Acute Vomiting Acute
--- NOTE | 2017-10-17 15:58 | ASMTCMCOM ---
CM Note CM Note Notes: ID following and continuing IV ABX. Pt to go to IR for drainage of abdominal collections. Day 7 for TPN and heparin drip started for DVT. D/C plan is still [facility] when pt is medically cleared to go. CM will continue to follow. Date Signed: 10/17/2017 03:57 PM Electronically Signed By:HANNAH Little
--- NOTE | 2017-10-17 16:24 | SOAPPROG ---
SOAP Progress Note Assessment/Plan: Assessment/Plan: 71yo F with complicated surgical history and Crohn's s/p open repair of incarcerated ventral hernia, SUHAIL. Depression. Severe protein evangelist malnutrition BMI 19. Enterocutaneous fistula - wound not currently draining, IR placed drain in intra -abd fluid collection over weekend Clot RUE s/p PICC removal and replaced on the L I discussed the RUE clot issue with Dr. Yeh of hematology - DC heparin. Clot isolated to basilic v without extension into deep system. Very low risk of propagation. Risk of bleeding higher than risk of clot in this patient. Will repeat US in 2 days to ensure that no extension into deep system (axillary v). 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 monitor for instability GI - see above. Has return of bowel function FEN - NPO. TPN Heme/ID - ABLA s/p transfusion last week. H/H stable. Therapeutic antibiotics. ID input appreciated PT/OT, dietary following, palliative following Dispo - continue inpatient. [facility] discharge - pt and family agree that she is unsafe to return home S: no pain this morning. No current complaints. O: laying in bed, comfortable, NAD no increased work of breathing BS present. Soft, relatively nontender LLQ wound with healthy granulation tissue in the base, no bilious drainage. Outer dressing dry. JAS without drainage - I replaced this to suction Objective: Vital Signs Temp Pulse Resp BP Pulse Ox 36.8 C 78 16 172/74 H 97 10/17/17 15:52 10/17/17 15:52 10/17/17 15:52 10/17/17 15:52 10/17/17 15:52 Microbiology 10/13/17 17:45 Gram Stain - Final Peritoneal Fluid - Aspirate Laboratory Results 10/17/17 04:20 10/17/17 04:20 10/16/17 10/17/17 10/18/17 05:59 05:59 05:59 Intake Total 1050 Output Total 325 618 650 Balance 725 -618 -650 PT 17.8 SEC (12.0-15.0) H 10/17/17 04:20 INR 1.45 (0.83-1.16) H 10/17/17 04:20 ICD10 Worksheet Patient Problems: Problems Problem Status Onset Abdominal pain Acute Periumbilical hernia Acute Abdominal pain Acute Abdominal pain, chronic, right lower quadrant Acute Acute Crohn's disease Acute Altered mental status Acute Bronchitis Acute Constipation Acute Crohns disease Acute Crohns disease of small intestine Acute Fever Acute Intra-abdominal abscess Acute Malnutrition Acute Postoperative infection Acute Severe sepsis Acute Vomiting Acute
[2017-10-17] MEDS: NS 1,000 ML IV SCH (18:05)
[2017-10-17] MEDS: MICAFUNGIN NA 100 MG in NS 100 ML IV SCH (18:05)
[2017-10-17] MEDS: levOFLOXACIN 500 MG/DEXTROSE 100 ML IV SCH (20:50)
[2017-10-17] MEDS: TPN 1 EA BAG IV SCH (20:50)
[2017-10-18] MEDS: VANCOMYCIN 500 MG in D5W 100 ML IV SCH ×2 (04:13→16:17)
[2017-10-18] MEDS: ONDANSETRON 4 MG/2 ML VIAL IVP PRN ×2 (06:31→23:30)
[2017-10-18] MEDS: HYDROmorphONE/DILAUDID 6 MG/30 ML PCA IV PRN (06:41)
[2017-10-18] MEDS: PREGABALIN 50 MG CAP PO SCH ×3 (08:43→22:21)
[2017-10-18] MEDS: FLUoxetine 20 MG CAP PO SCH (08:43)
[2017-10-18] MEDS ORDERED: morphINE 10 MG/0.5 ML UDSYR PO PRN (11:16)
[2017-10-18] MEDS: ACETAMINOPHEN 325 MG TAB PO PRN (14:19)
--- NOTE | 2017-10-18 14:26 | SOAPPROG ---
SOAP Progress Note Assessment/Plan: Assessment: s/p ex lap, lysis of adhesions, hernia repair malnutrition BMI 17 depression DVT - picc removed and replaced. Anticoagulation not needed. Repeat us tomorrow. Enterocutaneous fistula - discussed case with colorectal surgeon at the [facility] who agrees with my plan appreciate ID Will need TPN for several more weeks. In one week, we may try clear liquid diet Need nutrition to be improved prior to more interventions Keep drain Likely 2 week course ABX Start looking at dc planning Neuro - home meds and transition to roxinaol. 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 [facility] on discharge S: Better today. O: CTAB, no increased work of breathing Regular rate BS present JAS with bilious fluid. Allevyn is dry Plan: 10/06/17 22:12 10/12/17 15:11 10/12/17 17:12 10/13/17 20:51 10/14/17 17:08 10/16/17 19:19 10/18/17 14:24 Objective: Vital Signs Temp Pulse Resp BP Pulse Ox 36.4 C 76 15 123/91 H 93 10/18/17 12:00 10/18/17 12:00 10/18/17 12:00 10/18/17 12:00 10/18/17 12:00 Microbiology 10/13/17 17:45 Gram Stain - Final Peritoneal Fluid - Aspirate Laboratory Results 10/18/17 04:20 10/17/17 04:20 10/17/17 10/18/17 10/19/17 05:59 05:59 05:59 Intake Total 2057.8 Output Total 610 2850 Balance -618 -792.2 PT 17.8 SEC (12.0-15.0) H 10/17/17 04:20 INR 1.45 (0.83-1.16) H 10/17/17 04:20 ICD10 Worksheet Patient Problems: Problems Problem Status Onset Abdominal pain Acute Periumbilical hernia Acute Abdominal pain Acute Abdominal pain, chronic, right lower quadrant Acute Acute Crohn's disease Acute Altered mental status Acute Bronchitis Acute Constipation Acute Crohns disease Acute Crohns disease of small intestine Acute Fever Acute Intra-abdominal abscess Acute Malnutrition Acute Postoperative infection Acute Severe sepsis Acute Vomiting Acute
[2017-10-18] MEDS ORDERED: HYDROmorphONE/DILAUDID 6 MG/30 ML PCA IV PRN (16:32)
--- NOTE | 2017-10-18 16:39 | PCMIDPN ---
Assessment/Plan: Enterocutaneous fistula/abdominal abscess status post percutaneous drainage Cx with CoNS, annamaria albicans but patient was on Levaquin, Flagyl prior to drainage. Fistula/abscess drainage and NPO is most critical portion of healing process but due to positive cultures will treat directed at identified pathogens for a total of 2 weeks --continue vancomycin, micafungin for total of 2 weeks, stop date 10/29/2017 --on micafungin due to concern for drug-drug reaction with azoles and SSRIs meds TPN Micafungin 100 mg IV daily vancomycin 500mg IV q12h Prozac 60 mg p.o. Daily Discussed care with case management and nursing Subjective: No abdominal pain Feeling significantly better today Has gas and BM Hungry Objective: Vital Signs Temp Pulse Resp BP Pulse Ox 36.7 C 79 17 173/64 H 91 L 10/18/17 15:15 10/18/17 15:15 10/18/17 15:15 10/18/17 15:15 10/18/17 15:15 Microbiology 10/13/17 17:45 Gram Stain - Final Peritoneal Fluid - Aspirate Laboratory Results 10/18/17 04:20 10/17/17 04:20 10/17/17 10/18/17 10/19/17 05:59 05:59 05:59 Intake Total 2057.8 Output Total 618 2850 Balance -618 -792.2 - Physical Exam General Appearance: alert, no apparent distress Respiratory: lungs clear, No accessory muscle use Neck: supple Cardiac/Chest: regular rate, rhythm, No systolic murmur Abdomen: non-tender, soft, other (Open wounds approximately left mid abdomen approximately 2 x 2 cm, small amount of drainage, JAS drain in place with bilious fluid) Skin: warm/dry, pallor, No rash Neuro/Psych: alert, normal mood/affect, oriented x 3 - Line/s RUE PICC Lines: No drainage, No erythema - Time Spent With Patient Time Spent with Patient: greater than 35 minutes Time Spent with Patient: Greater than 35 minutes spent on this patients care, greater than 50% of time spent counseling, educating, and coordinating care regarding the above mentioned plan. ICD10 Worksheet Patient Problems: Problems Problem Status Onset Abdominal pain Acute Periumbilical hernia Acute Abdominal pain Acute Abdominal pain, chronic, right lower quadrant Acute Acute Crohn's disease Acute Altered mental status Acute Bronchitis Acute Constipation Acute Crohns disease Acute Crohns disease of small intestine Acute Fever Acute Intra-abdominal abscess Acute Malnutrition Acute Postoperative infection Acute Severe sepsis Acute Vomiting Acute
--- NOTE | 2017-10-18 16:44 | PDIAF ---
- Diagnosis Diagnosis: Enterocutaneous fistula/abdominal abscess Code Status: Do Not Resuscitate - Medication Management Discharge Medications: Medications to Continue on Transfer Dicyclomine [Bentyl 10 MG (*)] 10 mg PO BID 12/06/16 [Last Taken 10/04/17] FLUoxetine [Prozac 20 MG (*)] 60 mg PO DAILY 12/06/16 [Last Taken 10/04/17] LORazepam [Ativan (*)] 0.5 mg PO BID 12/06/16 [Last Taken 10/04/17] Pregabalin [Lyrica 50mg (*)] 100 mg PO TID 03/28/17 [Last Taken 10/04/17] Acetamn/Diphenhydramine 500/25 [Tylenol PM (*)] 1 each PO HS PRN 07/11/17 [Last Taken 10/03/17] Cholecalciferol Vit D3 [Vitamin D3 (*)] 1,000 units PO DAILY 09/06/17 [Last Taken 10/04/17] Multivitamins [Multivitamin (*)] 1 each PO DAILY 09/06/17 [Last Taken 10/04/17] oxyCODONE IR [Oxycodone Ir (*)] 5 mg PO DAILY@13 09/06/17 [Last Taken 10/04/17] oxyCODONE IR [Oxycodone Ir (*)] 10 mg PO BID 09/06/17 [Last Taken 10/04/17] Acetaminophen [Tylenol 325mg (*)] 650 mg PO Q6 PRN tab 09/15/17 [Last Taken Unknown] oxyCODONE IR [Oxycodone Ir (*)] 5 - 10 mg PO Q4HRS PRN #30 tab 09/15/17 [Last Taken 10/04/17] Shelter Antibiotics: micafungin 100mg IV daily; vancomycin 500mg IV q12h Shelter Antibiotic Stop Date: 10/29/17 Discharge Medications: Refer to the Discharge Home Medication list for PRN reason. PICC Care - Routine: Yes - Labs/Radiology BMP Date: 10/27/17 CBC w/diff Date: 10/24/17 (every tuesday) CMP Date: 10/24/17 (every tuesday) Vanco Trough Date and Time: Every Tuesday and Call or Fax Lab and Imaging Results to: Tami Benitez MD [facility] at fax [phone] - Follow Up Care Current Providers and Referrals: Cherelle Welsh MD [Primary Care Provider] - As per Instructions
--- NOTE | 2017-10-18 17:42 | ASMTCMCOM ---
CM Note CM Note Notes: DC plan remains for pt to go to [facility] when ready. Spoke w/Jn today at [facility] regarding pt's needs at this time. She will need to go on TPN as well as 2 IV ABX's ; updates sent to [facility] with IV ABX info so they can determine if they can still accept. CM will follow. Date Signed: 10/18/2017 05:42 PM Electronically Signed By:Perla Hurley RN
[2017-10-18] MEDS: MICAFUNGIN NA 100 MG in NS 100 ML IV SCH (17:47)
[2017-10-18] MEDS: TPN 1 EA BAG IV SCH (21:23)
[2017-10-19] MEDS: LORazepam 2 MG/ML INJ IVP PRN ×4 (01:29→21:59)
[2017-10-19] MEDS: VANCOMYCIN 500 MG in D5W 100 ML IV SCH ×2 (04:19→16:06)
[2017-10-19] MEDS: ONDANSETRON 4 MG/2 ML VIAL IVP PRN ×6 (05:08→20:11)
[2017-10-19] MEDS: FLUoxetine 20 MG CAP PO SCH (09:30)
[2017-10-19] MEDS: PREGABALIN 50 MG CAP PO SCH ×3 (09:30→21:22)
[2017-10-19] MEDS: NS 1,000 ML IV SCH (11:30)
--- NOTE | 2017-10-19 12:07 | SOAPPROG ---
SOAP Progress Note Assessment/Plan: Assessment: s/p ex lap, lysis of adhesions, hernia repair malnutrition BMI 17 depression DVT - picc removed and replaced. Anticoagulation not needed. Repeat us tomorrow. Enterocutaneous fistula - discussed case with colorectal surgeon at the [place] who agrees with my plan appreciate ID Will need TPN for several more weeks. In one week, we may try clear liquid diet Need nutrition to be improved prior to more interventions Keep drain Likely 2 week course ABX Looking for SNF Neuro - home meds and Roxinol Resp - IS FEN - NPO and TPN while fistula healing Dispo - [facility] discharge S: Sleeping, awoke during exam, no complaints O: CTAB, no increased work of breathing Regular rate BS present JAS with bilious fluid. Allevyn is dry Plan: 10/06/17 22:12 10/12/17 15:11 10/12/17 17:12 10/13/17 20:51 10/14/17 17:08 10/16/17 19:19 10/18/17 14:24 10/19/17 12:06 Objective: Vital Signs Temp Pulse Resp BP Pulse Ox 37.1 C 100 18 149/98 H 96 10/19/17 11:43 10/19/17 11:43 10/19/17 11:43 10/19/17 11:43 10/19/17 11:43 Microbiology 10/13/17 17:45 Gram Stain - Final Peritoneal Fluid - Aspirate Laboratory Results 10/18/17 04:20 10/19/17 04:25 10/18/17 10/19/17 10/20/17 05:59 05:59 05:59 Intake Total 2057.8 2101.9 Output Total 2850 540 Balance -792.2 1561.9 PT 17.8 SEC (12.0-15.0) H 10/17/17 04:20 INR 1.45 (0.83-1.16) H 10/17/17 04:20 ICD10 Worksheet Patient Problems: Problems Problem Status Onset Abdominal pain Acute Periumbilical hernia Acute Abdominal pain Acute Abdominal pain, chronic, right lower quadrant Acute Acute Crohn's disease Acute Altered mental status Acute Bronchitis Acute Constipation Acute Crohns disease Acute Crohns disease of small intestine Acute Fever Acute Intra-abdominal abscess Acute Malnutrition Acute Postoperative infection Acute Severe sepsis Acute Vomiting Acute
[2017-10-19] MEDS: ACETAMINOPHEN 325 MG TAB PO PRN ×2 (14:41→23:38)
[2017-10-19] MEDS: PROMETHAZINE HCL 25 MG/ML INJ IVP PRN ×2 (14:45→18:33)
[2017-10-19] MEDS: MICAFUNGIN NA 100 MG in NS 100 ML IV SCH (17:21)
[2017-10-19] MEDS: diphenhydrAMINE 25 MG CAP PO PRN (20:12)
[2017-10-19] MEDS: TPN 1 EA BAG IV SCH (21:00)
[2017-10-20] MEDS: ONDANSETRON 4 MG/2 ML VIAL IVP PRN ×3 (00:03→21:41)
[2017-10-20] MEDS: PROMETHAZINE HCL 25 MG/ML INJ IVP PRN ×3 (00:56→16:17)
[2017-10-20] MEDS: LORazepam 2 MG/ML INJ IVP PRN ×2 (02:19→07:33)
[2017-10-20] MEDS: VANCOMYCIN 500 MG in D5W 100 ML IV SCH ×2 (03:55→15:39)
[2017-10-20] MEDS: HYDROmorphone HCL/NS 0.5 MG/ML SYR IV PRN ×2 (09:37→11:18)
--- NOTE | 2017-10-20 10:29 | PCMIDPN ---
Assessment/Plan: # Enterocutaneous fistula/abdominal abscess status post percutaneous drainage Cx with CoNS, annamaria albicans but patient was on Levaquin, Flagyl prior to drainage. Fistula/abscess drainage and NPO is most critical portion of healing process but due to positive cultures will treat directed at identified pathogens for a total of 2 weeks --continue vancomycin, micafungin for total of 2 weeks, stop date 10/29/2017 --check baseline EKG, consider change to fluconazole # N/V x2 days after FOOD TASTER pump removed. KUB without obstruction and patient with multiple BMs, +flatus. Significant elevation in WBC today, afebrile. Drainage from JAS is a bit different character, brown --discussed with Dr. Yee and plan to repeat CT scan --do not think nausea/vomiting is attributable to antibiotics meds TPN Micafungin 100 mg IV daily vancomycin 500mg IV q12h Prozac 60 mg p.o. Daily Subjective: patient c/o N/V x 2 days +flatus +BM slight increase abdominal pain Objective: Vital Signs Temp Pulse Resp BP Pulse Ox 36.7 C 107 H 20 200/100 H 100 10/20/17 07:46 10/20/17 07:46 10/20/17 07:46 10/20/17 07:46 10/20/17 07:46 Microbiology 10/13/17 17:45 Gram Stain - Final Peritoneal Fluid - Aspirate Laboratory Results 10/18/17 04:20 10/20/17 03:48 10/19/17 10/20/17 10/21/17 05:59 05:59 05:59 Intake Total 2101.9 870 Output Total 540 1455 Balance 1561.9 -585 - Physical Exam General Appearance: alert, no apparent distress, thin Respiratory: lungs clear, No accessory muscle use Cardiac/Chest: tachycardia, No systolic murmur Extremities: No pedal edema Abdomen: non-tender, soft, other (hyperactive bs, L JAS drain with brown fluid) Skin: pallor, No rash Neuro/Psych: alert, normal mood/affect, oriented x 3 - Line/s LUE PICC Lines: No drainage, No erythema - Time Spent With Patient Time Spent with Patient: greater than 35 minutes Time Spent with Patient: Greater than 35 minutes spent on this patients care, greater than 50% of time spent counseling, educating, and coordinating care regarding the above mentioned plan. ICD10 Worksheet Patient Problems: Problems Problem Status Onset Abdominal pain Acute Periumbilical hernia Acute Abdominal pain Acute Abdominal pain, chronic, right lower quadrant Acute Acute Crohn's disease Acute Altered mental status Acute Bronchitis Acute Constipation Acute Crohns disease Acute Crohns disease of small intestine Acute Fever Acute Intra-abdominal abscess Acute Malnutrition Acute Postoperative infection Acute Severe sepsis Acute Vomiting Acute
[2017-10-20 10:42] LABS: PLATELET COUNT 750 10^3/uL (150-400)
[2017-10-20 10:48] LABS: INR 1.2 (0.83-1.16); PROTIME(PATIENT) 15.4 SEC (12.0-15.0)
[2017-10-20] MEDS: PREGABALIN 50 MG CAP PO SCH ×3 (11:18→21:30)
[2017-10-20] MEDS: FLUoxetine 20 MG CAP PO SCH (11:18)
[2017-10-20] MEDS: hydrALAZINE 20 MG/ML VIAL IVP PRN (11:34)
[2017-10-20] MEDS ORDERED: oxyCODONE IR 5 MG TAB PO PRN (11:45)
[2017-10-20] MEDS: LORazepam 0.5 MG TAB PO PRN ×2 (12:13→15:36)
[2017-10-20 13:01] LABS: PLATELET COUNT 849 10^3/uL (150-400)
--- NOTE | 2017-10-20 13:26 | CPEKG ---
Heart Rate: 114 RR Interval: 526 P-R Interval: 144 QRSD Interval: 80 QT Interval: 308 QTC Interval: 425 P [place]: 47 QRS [place]: 63 T Wave [place]: 265 EKG Severity - ABNORMAL ECG - EKG Impression: SINUS TACHYCARDIA EKG Impression: NONSPECIFIC T ABNORMALITIES, INFERIOR LEADS EKG Impression: QTc IS AGAIN PROLONGED Electronically Signed By: Adan Benson 20-Oct-2017 22:58:37
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
--- NOTE | 2017-10-20 13:59 | SOAPPROG ---
SOAP Progress Note Assessment/Plan: Assessment: s/p ex lap, lysis of adhesions, hernia repair Big issue over past 24 hours is new onset nausea and vomiting. I will get a CT of her abdomen and pelvis. ? ABX ? Intrabdominal process. AXR yesterday did not show any unusual pattern Also Hypertensive - Farnaz reports it is due to anxiety about paying rent. I asked the hospitalists to consult malnutrition BMI 17 depression DVT - picc removed and replaced. Anticoagulation not needed. Repeat us with stable clot Enterocutaneous fistula - discussed case with colorectal surgeon at the [facility] who agrees with my plan appreciate ID Will need TPN for several more weeks. In one week, we may try clear liquid diet Need nutrition to be improved prior to more interventions Keep drain Likely 2 week course ABX Looking for SNF Neuro - home meds and Roxinol Resp - IS FEN - NPO and TPN while fistula healing Dispo - Powerback on discharge S: Not feeling well today O: CTAB, no increased work of breathing Regular rate BS present JAS with bilious fluid. Allevyn is dry Abdomen is much flatter today with no erythema. It is soft Plan: 10/06/17 22:12 10/12/17 15:11 10/12/17 17:12 10/13/17 20:51 10/14/17 17:08 10/16/17 19:19 10/18/17 14:24 10/19/17 12:06 10/20/17 13:55 10/20/17 14:03 10/20/17 14:04 Objective: Vital Signs Temp Pulse Resp BP Pulse Ox 36.8 C 118 H 18 176/93 H 93 10/20/17 11:11 10/20/17 12:15 10/20/17 12:15 10/20/17 12:15 10/20/17 12:15 Microbiology 10/13/17 17:45 Gram Stain - Final Peritoneal Fluid - Aspirate Anaerobic Culture - Final Staphylococcus Epidermidis Mayra Albicans Laboratory Results 10/20/17 12:37 10/20/17 10:32 10/19/17 10/20/17 10/21/17 05:59 05:59 05:59 Intake Total 2101.9 870 Output Total 540 1455 Balance 1561.9 -585 PT 15.4 SEC (12.0-15.0) H 10/20/17 10:32 INR 1.20 (0.83-1.16) H 10/20/17 10:32 ICD10 Worksheet Patient Problems: Problems Problem Status Onset Abdominal pain Acute Periumbilical hernia Acute Abdominal pain Acute Abdominal pain, chronic, right lower quadrant Acute Acute Crohn's disease Acute Altered mental status Acute Bronchitis Acute Constipation Acute Crohns disease Acute Crohns disease of small intestine Acute Fever Acute Intra-abdominal abscess Acute Malnutrition Acute Postoperative infection Acute Severe sepsis Acute Vomiting Acute
[2017-10-20] MEDS ORDERED: IOPAMIDOL (ISOVUE-300) 100 ML BTL ONE (14:13)
[2017-10-20] MEDS: MICAFUNGIN NA 100 MG in NS 100 ML IV SCH (16:17)
[2017-10-20] MEDS ORDERED: LORazepam 0.5 MG TAB PO SCH (21:00)
[2017-10-20] MEDS: LORazepam 0.5 MG TAB PO SCH (21:30)
[2017-10-20] MEDS: oxyCODONE IR 5 MG TAB PO SCH (21:31)
[2017-10-20] MEDS: TPN 1 EA BAG IV SCH (21:32)
[2017-10-21] MEDS: ONDANSETRON 4 MG/2 ML VIAL IVP PRN ×2 (03:42→17:43)
[2017-10-21 04:32] LABS: PLATELET COUNT 744 10^3/uL (150-400)
[2017-10-21] MEDS: VANCOMYCIN 500 MG in D5W 100 ML IV SCH ×2 (04:32→15:56)
[2017-10-21] MEDS: PROMETHAZINE HCL 25 MG/ML INJ IVP PRN ×2 (04:36→15:53)
[2017-10-21] MEDS: LORazepam 2 MG/ML INJ IVP PRN ×2 (05:41→19:29)
[2017-10-21] MEDS: LORazepam 0.5 MG TAB PO SCH ×3 (08:25→22:05)
[2017-10-21] MEDS: PREGABALIN 50 MG CAP PO SCH ×3 (08:25→21:59)
[2017-10-21] MEDS: oxyCODONE IR 5 MG TAB PO SCH ×3 (08:25→22:00)
[2017-10-21] MEDS: FLUoxetine 20 MG CAP PO SCH (08:25)
--- NOTE | 2017-10-21 08:42 | SOAPPROG ---
SOAP Progress Note Assessment/Plan: Assessment/Plan: 71yo F with complicated surgical history and Crohn's s/p open repair of incarcerated ventral hernia, SUHAIL. Depression. Severe protein evangelist malnutrition BMI 19. Neuro - home PO meds and Roxanol Resp - IS Cards - HTN - hospitalists following GI - Enterocutaneous fistula - wound not currently draining. Nausea - improving since restarting home PO pain meds. CT with no findings to explain increased nausea FEN - Continue NPO and TPN while fistula healing - several more weeks. In 1 week , may try clear liquid diet Heme/ID - DVT R basilic - PICC removed and replaced, anticoagulation not needed , repeat US with stable clot. ABLA s/p transfusion. H/H improved. IV antibiotics - ID following PT/OT, dietary following, palliative following Dispo - continue inpatient. Powerback on discharge - pt and family agree that she is unsafe to return home S: not feeling well this morning due to nausea. No vomiting. no pain. no fevers O: laying in bed, belching and uncomfortable no increased work of breathing BS present. Soft, nontender LLQ wound with healthy granulation tissue in the base, no bilious drainage. Outer dressing dry. JAS scant bilious fluid Objective: Vital Signs Temp Pulse Resp BP Pulse Ox 36.8 C 114 H 18 171/102 H 95 10/21/17 07:44 10/21/17 07:44 10/21/17 07:44 10/21/17 07:44 10/21/17 07:44 Microbiology 10/13/17 17:45 Gram Stain - Final Peritoneal Fluid - Aspirate Anaerobic Culture - Final Staphylococcus Epidermidis Mayra Albicans Laboratory Results 10/21/17 04:15 10/21/17 04:15 10/20/17 10/21/17 10/22/17 05:59 05:59 05:59 Intake Total 870 1368 Output Total 1455 1357 Balance -585 11 PT 15.4 SEC (12.0-15.0) H 10/20/17 10:32 INR 1.20 (0.83-1.16) H 10/20/17 10:32 ICD10 Worksheet Patient Problems: Problems Problem Status Onset Abdominal pain Acute Periumbilical hernia Acute Abdominal pain Acute Abdominal pain, chronic, right lower quadrant Acute Acute Crohn's disease Acute Altered mental status Acute Bronchitis Acute Constipation Acute Crohns disease Acute Crohns disease of small intestine Acute Fever Acute Intra-abdominal abscess Acute Malnutrition Acute Postoperative infection Acute Severe sepsis Acute Vomiting Acute
--- NOTE | 2017-10-21 10:10 | PCMIDPN ---
Assessment/Plan: 1. Enterocutaneous fistula/abdominal abscesses status post percutaneous drainage on October 13 in patient with underlying Crohn's disease: Previous microbiology noted. As per my colleagues, if she remains stable continue vancomycin and Micafungin as is through October 29. Repeat vancomycin trough tomorrow. Recent CT findings noted. Leukocytosis better. 2. Nausea: She is not vomiting. She feels that this is slightly better today. 10/21/17 10:09 Subjective: In bed, feels tired. Feels that nausea slightly better today. Not vomiting. We made a deal that she would try for a shower tomorrow, which makes her feel better. Objective: Micafungin 100 mg daily Vancomycin 500 mg IV q.12 hours. Tentative stop date for antibiotics October 29 T-max 37 degrees Vital Signs Temp Pulse Resp BP Pulse Ox 36.8 C 114 H 18 171/102 H 95 10/21/17 07:44 10/21/17 07:44 10/21/17 07:44 10/21/17 07:44 10/21/17 07:44 Microbiology 10/13/17 17:45 Gram Stain - Final Peritoneal Fluid - Aspirate Anaerobic Culture - Final Staphylococcus Epidermidis Mayra Albicans Laboratory Results 10/21/17 04:15 10/21/17 04:15 10/20/17 10/21/17 10/22/17 05:59 05:59 05:59 Intake Total 870 1368 Output Total 1455 1357 Balance -585 11 No new microbiology - Physical Exam General Appearance: no apparent distress, cachetic EENT: pharynx normal, No thrush Respiratory: lungs clear Cardiac/Chest: tachycardia Extremities: other (PICC line left upper extremity looks fine with no swelling of the arm or tenderness) Abdomen: other (Drain in place, with 30 cc of green fluid (succus entericus)) Skin: No rash ICD10 Worksheet Patient Problems: Problems Problem Status Onset Abdominal pain Acute Periumbilical hernia Acute Abdominal pain Acute Abdominal pain, chronic, right lower quadrant Acute Acute Crohn's disease Acute Altered mental status Acute Bronchitis Acute Constipation Acute Crohns disease Acute Crohns disease of small intestine Acute Fever Acute Intra-abdominal abscess Acute Malnutrition Acute Postoperative infection Acute Severe sepsis Acute Vomiting Acute
[2017-10-21] MEDS: LORazepam 0.5 MG TAB PO PRN (15:15)
--- NOTE | 2017-10-21 16:27 | HOSPPROG ---
Hospitalist Progress Note Assessment/Plan: * HTN crisis -prn IV hydralazine - improved BP * Narcotic withdrawal - continuous narcotic dependency -improved - back to home doses oxycodone * Crohn's with enterocutaneous fistula and abscess -IV vanco, IV micafungin -NPO/TPN - plan to discharge with TPN * Superficial DVT due to PICC -PICC changed to other arm -superficial clot stable on f/u US - no need for anticoag High risk due to IV Vanco Subjective: N/V better, no diarrhea Objective: Vital Signs Temp Pulse Resp BP Pulse Ox 36.9 C 114 H 16 146/91 H 93 10/21/17 12:00 10/21/17 12:00 10/21/17 12:00 10/21/17 12:00 10/21/17 12:00 Microbiology 10/13/17 17:45 Gram Stain - Final Peritoneal Fluid - Aspirate Anaerobic Culture - Final Staphylococcus Epidermidis Mayra Albicans Laboratory Results 10/21/17 04:15 10/21/17 04:15 10/20/17 10/21/17 10/22/17 05:59 05:59 05:59 Intake Total 870 1368 Output Total 1455 1357 500 Balance -585 11 -500 PT 15.4 SEC (12.0-15.0) H 10/20/17 10:32 INR 1.20 (0.83-1.16) H 10/20/17 10:32 - Physical Exam Constitutional: no apparent distress, appears nourished, not in pain Cardiovascular: regular rate and rhythym, no murmur, rub, or gallop Respiratory: no respiratory distress, no rales or rhonchi, clear to auscultation Gastrointestinal: normoactive bowel sounds, soft, non-tender abdomen, no palpable masses Skin: no rashes or abrasions, no fluctuance, no induration Neurologic: AAOx3, sensation intact bilaterally Psychiatric: interacting appropriately, not anxious, not encephalopathic, thought process linear ICD10 Worksheet Patient Problems: Problems Problem Status Onset Abdominal pain Acute Periumbilical hernia Acute Abdominal pain Acute Abdominal pain, chronic, right lower quadrant Acute Acute Crohn's disease Acute Altered mental status Acute Bronchitis Acute Constipation Acute Crohns disease Acute Crohns disease of small intestine Acute Fever Acute Intra-abdominal abscess Acute Malnutrition Acute Postoperative infection Acute Severe sepsis Acute Vomiting Acute
[2017-10-21] MEDS: MICAFUNGIN NA 100 MG in NS 100 ML IV SCH (17:26)
[2017-10-21] MEDS: hydrALAZINE 20 MG/ML VIAL IVP PRN (17:51)
[2017-10-21] MEDS: TPN 1 EA BAG IV SCH (21:59)
[2017-10-22] MEDS: VANCOMYCIN 500 MG in D5W 100 ML IV SCH ×2 (05:25→17:55)
[2017-10-22 06:54] LABS: PLATELET COUNT 543 10^3/uL (150-400)
--- NOTE | 2017-10-22 08:50 | SOAPPROG ---
SOAP Progress Note Assessment/Plan: Assessment: s/p ex lap, lysis of adhesions, hernia repair Big issue over past 24 hours is new onset nausea and vomiting. I will get a CT of her abdomen and pelvis. ? ABX ? Intrabdominal process. AXR yesterday did not show any unusual pattern Also Hypertensive - Farnaz reports it is due to anxiety about paying rent. I asked the hospitalists to consult malnutrition BMI 16 depression DVT - picc removed and replaced. Anticoagulation not needed. Repeat us with stable clot Enterocutaneous fistula - discussed case with colorectal surgeon at the [facility] who agrees with my plan appreciate ID Will need TPN for several more weeks. If drain output continues to decrease then may try clears next week Need nutrition to be improved prior to more interventions Keep drain Likely 2 week course ABX Looking for SNF Neuro - home meds . Nausea improved Resp - IS FEN - NPO and TPN while fistula healing Dispo - Powerback on discharge S: Feeling better today "think I had a nervous breakdown" O: CTAB, no increased work of breathing Regular rate BS present JAS with bilious fluid. Allevyn is dry Abdomen is soft and flat Plan: 10/06/17 22:12 10/12/17 15:11 10/12/17 17:12 10/13/17 20:51 10/14/17 17:08 10/16/17 19:19 10/18/17 14:24 10/19/17 12:06 10/20/17 13:55 10/20/17 14:03 10/20/17 14:04 10/22/17 08:49 Objective: Vital Signs Temp Pulse Resp BP Pulse Ox 36.7 C 112 H 14 111/62 94 10/22/17 07:20 10/22/17 07:20 10/22/17 07:20 10/22/17 07:20 10/22/17 07:20 Laboratory Results 10/22/17 06:38 10/22/17 08:08 10/21/17 10/22/17 10/23/17 05:59 05:59 05:59 Intake Total 1368 1463 Output Total 1357 720 160 Balance 11 743 -160 PT 15.4 SEC (12.0-15.0) H 10/20/17 10:32 INR 1.20 (0.83-1.16) H 10/20/17 10:32 ICD10 Worksheet Patient Problems: Problems Problem Status Onset Abdominal pain Acute Periumbilical hernia Acute Abdominal pain Acute Abdominal pain, chronic, right lower quadrant Acute Acute Crohn's disease Acute Altered mental status Acute Bronchitis Acute Constipation Acute Crohns disease Acute Crohns disease of small intestine Acute Fever Acute Intra-abdominal abscess Acute Malnutrition Acute Postoperative infection Acute Severe sepsis Acute Vomiting Acute
[2017-10-22] MEDS: LORazepam 0.5 MG TAB PO SCH ×2 (09:13→21:42)
[2017-10-22] MEDS: oxyCODONE IR 5 MG TAB PO SCH ×3 (09:13→21:26)
[2017-10-22] MEDS: PREGABALIN 50 MG CAP PO SCH ×3 (09:13→21:27)
[2017-10-22] MEDS: FLUoxetine 20 MG CAP PO SCH (09:14)
--- NOTE | 2017-10-22 11:39 | ASMTCMCOM ---
CM Note CM Note Notes: Per surgery note, patient has had new onset n/v with unclear etiology. A CT of the abdomen has been ordered. She has also complained of anxiety, which has increased her blood pressure. Patient will need several weeks of TPN and at least two weeks of IV antibiotics. Per Tiara at [facility], they are still willing to accept but will need 24 hours notice before discharge to get the correct enteral feeding formula. Case Management will follow. Date Signed: 10/22/2017 11:38 AM Electronically Signed By:Olivia Carnes RN
[2017-10-22] MEDS ORDERED: NS 500 ML IV ONE (12:09)
--- NOTE | 2017-10-22 12:16 | HOSPPROG ---
Hospitalist Progress Note Assessment/Plan: * Crohn's with enterocutaneous fistula and abscess -IV vanco, IV micafungin -NPO/TPN - plan to discharge with TPN * Superficial DVT due to PICC -PICC changed to other arm -superficial clot stable on f/u US - no need for anticoag * HTN -BP now low - will DC IV hydralazine * Narcotic withdrawal - continuous narcotic dependency -improved - back to home doses oxycodone * Tachycardia -I suspect she is still dry post N/V/D -increase IVF NS for next 24 hours, then possible change to TPN only Subjective: Feeling better, no N/V/D Objective: Vital Signs Temp Pulse Resp BP Pulse Ox 36.6 C 102 H 14 105/61 94 10/22/17 11:13 10/22/17 11:13 10/22/17 11:13 10/22/17 11:13 10/22/17 11:13 Laboratory Results 10/22/17 06:38 10/22/17 08:08 10/21/17 10/22/17 10/23/17 05:59 05:59 05:59 Intake Total 1368 1463 Output Total 1357 720 160 Balance 11 743 -160 PT 15.4 SEC (12.0-15.0) H 10/20/17 10:32 INR 1.20 (0.83-1.16) H 10/20/17 10:32 - Physical Exam Constitutional: no apparent distress, appears nourished, not in pain Cardiovascular: regular rate and rhythym, no murmur, rub, or gallop Respiratory: no respiratory distress, no rales or rhonchi, clear to auscultation Gastrointestinal: normoactive bowel sounds, soft, non-tender abdomen, no palpable masses Skin: no rashes or abrasions, no fluctuance, no induration Neurologic: AAOx3, sensation intact bilaterally Psychiatric: interacting appropriately, not anxious, not encephalopathic, thought process linear ICD10 Worksheet Patient Problems: Problems Problem Status Onset Abdominal pain Acute Periumbilical hernia Acute Abdominal pain Acute Abdominal pain, chronic, right lower quadrant Acute Acute Crohn's disease Acute Altered mental status Acute Bronchitis Acute Constipation Acute Crohns disease Acute Crohns disease of small intestine Acute Fever Acute Intra-abdominal abscess Acute Malnutrition Acute Postoperative infection Acute Severe sepsis Acute Vomiting Acute
[2017-10-22] MEDS: LORazepam 2 MG/ML INJ IVP PRN (18:41)
[2017-10-22] MEDS: MICAFUNGIN NA 100 MG in NS 100 ML IV SCH (19:23)
[2017-10-22] MEDS: NS 1,000 ML IV SCH (19:24)
[2017-10-22] MEDS: TPN 1 EA BAG IV SCH (21:22)
[2017-10-23] MEDS: VANCOMYCIN 500 MG in D5W 100 ML IV SCH ×2 (04:37→16:17)
[2017-10-23 06:24] LABS: PLATELET COUNT 472 10^3/uL (150-400)
[2017-10-23] MEDS: LORazepam 0.5 MG TAB PO PRN (06:29)
[2017-10-23] MEDS: LORazepam 0.5 MG TAB PO SCH ×2 (09:13→20:15)
[2017-10-23] MEDS: FLUoxetine 20 MG CAP PO SCH (09:13)
[2017-10-23] MEDS: PREGABALIN 50 MG CAP PO SCH ×3 (09:13→22:01)
[2017-10-23] MEDS: oxyCODONE IR 5 MG TAB PO SCH ×3 (09:13→20:14)
--- NOTE | 2017-10-23 14:38 | HOSPPROG ---
Hospitalist Progress Note Assessment/Plan: * Crohn's with enterocutaneous fistula and abscess -IV vanco, IV micafungin -NPO/TPN - plan to discharge with TPN * Superficial DVT due to PICC -PICC changed to other arm -superficial clot stable on f/u US - no need for anticoag * HTN -BP now low - will DC IV hydralazine * Narcotic withdrawal - continuous narcotic dependency -improved - back to home doses oxycodone * Tachycardia - resolved with additional IVF Okay for discharge from medical standpoint, when okay with surgery Subjective: No complaints. Objective: Vital Signs Temp Pulse Resp BP Pulse Ox 36.8 C 93 16 166/81 H 97 10/23/17 08:00 10/23/17 08:00 10/23/17 08:00 10/23/17 08:00 10/23/17 08:00 Laboratory Results 10/23/17 06:10 10/23/17 06:10 10/22/17 10/23/17 10/24/17 05:59 05:59 05:59 Intake Total 1463 1225 Output Total 720 905 Balance 743 320 PT 15.4 SEC (12.0-15.0) H 10/20/17 10:32 INR 1.20 (0.83-1.16) H 10/20/17 10:32 - Physical Exam Constitutional: no apparent distress, appears nourished, not in pain Cardiovascular: regular rate and rhythym, no murmur, rub, or gallop Respiratory: no respiratory distress, no rales or rhonchi, clear to auscultation Gastrointestinal: normoactive bowel sounds, soft, non-tender abdomen, no palpable masses Skin: no rashes or abrasions, no fluctuance, no induration Neurologic: AAOx3, sensation intact bilaterally Psychiatric: interacting appropriately, not anxious, not encephalopathic, thought process linear ICD10 Worksheet Patient Problems: Problems Problem Status Onset Abdominal pain Acute Periumbilical hernia Acute Abdominal pain Acute Abdominal pain, chronic, right lower quadrant Acute Acute Crohn's disease Acute Altered mental status Acute Bronchitis Acute Constipation Acute Crohns disease Acute Crohns disease of small intestine Acute Fever Acute Intra-abdominal abscess Acute Malnutrition Acute Postoperative infection Acute Severe sepsis Acute Vomiting Acute
--- NOTE | 2017-10-23 16:43 | SOAPPROG ---
SOAP Progress Note Assessment/Plan: Assessment: LOOKS QUITE WELL FOR HER SITUATION/AFEBRILE/MINIMAL DRAINAGE/FISTULOUS SITE HEALING/TOLERATING TPN ABDOMEN IS SOFT/WOUND OKAY/DRAIN IN PLACE/AFEBRILE Plan: SMALL AMOUNT OF CLEAR LIQUIDS 10/23/17 16:42 Objective: Vital Signs Temp Pulse Resp BP Pulse Ox 36.8 C 88 16 151/70 H 96 10/23/17 16:00 10/23/17 16:00 10/23/17 16:00 10/23/17 16:00 10/23/17 16:00 Laboratory Results 10/23/17 06:10 10/23/17 06:10 10/22/17 10/23/17 10/24/17 05:59 05:59 05:59 Intake Total 1463 1225 Output Total 720 905 15 Balance 743 320 -15 PT 15.4 SEC (12.0-15.0) H 10/20/17 10:32 INR 1.20 (0.83-1.16) H 10/20/17 10:32 ICD10 Worksheet Patient Problems: Problems Problem Status Onset Abdominal pain Acute Periumbilical hernia Acute Abdominal pain Acute Abdominal pain, chronic, right lower quadrant Acute Acute Crohn's disease Acute Altered mental status Acute Bronchitis Acute Constipation Acute Crohns disease Acute Crohns disease of small intestine Acute Fever Acute Intra-abdominal abscess Acute Malnutrition Acute Postoperative infection Acute Severe sepsis Acute Vomiting Acute
[2017-10-23] MEDS: MICAFUNGIN NA 100 MG in NS 100 ML IV SCH (17:33)
[2017-10-23] MEDS: TPN 1 EA BAG IV SCH (20:13)
[2017-10-24] MEDS: VANCOMYCIN 500 MG in D5W 100 ML IV SCH ×2 (04:25→18:18)
[2017-10-24] MEDS: LORazepam 0.5 MG TAB PO PRN (04:29)
[2017-10-24 04:36] LABS: PLATELET COUNT 426 10^3/uL (150-400)
[2017-10-24 04:47] LABS: INR 1.22 (0.83-1.16); PROTIME(PATIENT) 15.6 SEC (12.0-15.0)
[2017-10-24] MEDS: PREGABALIN 50 MG CAP PO SCH ×3 (08:15→21:33)
[2017-10-24] MEDS: oxyCODONE IR 5 MG TAB PO SCH ×3 (08:16→21:34)
[2017-10-24] MEDS: LORazepam 0.5 MG TAB PO SCH ×2 (08:16→21:34)
[2017-10-24] MEDS: FLUoxetine 20 MG CAP PO SCH (08:16)
[2017-10-24] MEDS ORDERED: POTASSIUM Cl (KCl) 10 MEQ in NS 100 ML IV SCH (09:00)
[2017-10-24] MEDS: POTASSIUM Cl (KCl) 100 ML IV SCH ×3 (11:02→14:09)
--- NOTE | 2017-10-24 12:01 | PDIAF ---
- Diagnosis Diagnosis: Enterocutaneous fistula/abdominal abscess Code Status: Do Not Resuscitate - Medication Management Discharge Medications: Medications to Continue on Transfer Dicyclomine [Bentyl 10 MG (*)] 10 mg PO BID 12/06/16 [Last Taken 10/04/17] FLUoxetine [Prozac 20 MG (*)] 60 mg PO DAILY 12/06/16 [Last Taken 10/04/17] LORazepam [Ativan (*)] 0.5 mg PO BID 12/06/16 [Last Taken 10/04/17] Pregabalin [Lyrica 50mg (*)] 100 mg PO TID 03/28/17 [Last Taken 10/04/17] Acetamn/Diphenhydramine 500/25 [Tylenol PM (*)] 1 each PO HS PRN 07/11/17 [Last Taken 10/03/17] Cholecalciferol Vit D3 [Vitamin D3 (*)] 1,000 units PO DAILY 09/06/17 [Last Taken 10/04/17] Multivitamins [Multivitamin (*)] 1 each PO DAILY 09/06/17 [Last Taken 10/04/17] oxyCODONE IR [Oxycodone Ir (*)] 5 mg PO DAILY@13 09/06/17 [Last Taken 10/04/17] oxyCODONE IR [Oxycodone Ir (*)] 10 mg PO BID 09/06/17 [Last Taken 10/04/17] Acetaminophen [Tylenol 325mg (*)] 650 mg PO Q6 PRN tab 09/15/17 [Last Taken Unknown] oxyCODONE IR [Oxycodone Ir (*)] 5 - 10 mg PO Q4HRS PRN #30 tab 09/15/17 [Last Taken 10/04/17] Half-Way Antibiotics: micafungin 100mg IV daily; vancomycin 500mg IV q12h Half-Way Antibiotic Stop Date: 10/29/17 Discharge Medications: Refer to the Discharge Home Medication list for PRN reason. PICC Care - Routine: Yes - Labs/Radiology BMP Date: 10/27/17 CBC w/diff Date: 10/27/17 (every tuesday) Vanco Trough Date and Time: 10/26/2017 Call or Fax Lab and Imaging Results to: Tami Benitez MD [facility] at fax [phone] - Follow Up Care Current Providers and Referrals: Cherelle Welsh MD [Primary Care Provider] - As per Instructions
[2017-10-24] MEDS: APIXABAN 5 MG TAB PO SCH ×2 (13:06→21:33)
--- NOTE | 2017-10-24 15:48 | SOAPPROG ---
SOAP Progress Note Assessment/Plan: Assessment/Plan: 71yo F with complicated surgical history and Crohn's s/p open repair of incarcerated ventral hernia, SUHAIL. Depression. Severe protein evangelist malnutrition BMI 19. 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 Nausea improved after restarting home pain meds FEN -Started on clear liquids over the weekend - limit to 8oz every 8 hours. Continue TPN while fistula healing, 1-2 more weeks Heme/ID - Now with worsening pain and swelling around LUE PICC - US pending. DVT R basilic - PICC removed and replaced, anticoagulation not needed, repeat US with stable clot. ABLA s/p transfusion. H/H improved. IV antibiotics - ID following PT/OT, dietary following, palliative following Dispo - [facility] on discharge - pt and family agree that she is unsafe to return home. Patient is nearing discharge, and is stable from surgical perspective with close outpatient follow-up. S: very tired this morning, does not feel motivated. No nausea, vomiting, pain or fevers O: laying in bed, comfortable, NAD no increased work of breathing BS present. Soft, nontender LLQ wound with healthy granulation tissue in the base, no bilious drainage. Outer dressing dry. JAS scant bilious fluid Objective: Vital Signs Temp Pulse Resp BP Pulse Ox 36.9 C 92 14 104/84 H 96 10/24/17 11:57 10/24/17 11:57 10/24/17 11:57 10/24/17 11:57 10/24/17 11:57 Laboratory Results 10/24/17 04:20 10/24/17 04:20 10/23/17 10/24/17 10/25/17 05:59 05:59 05:59 Intake Total 1225 2091 Output Total 905 60 Balance 320 2031 PT 15.6 SEC (12.0-15.0) H 10/24/17 04:20 INR 1.22 (0.83-1.16) H 10/24/17 04:20 ICD10 Worksheet Patient Problems: Problems Problem Status Onset Abdominal pain Acute Periumbilical hernia Acute Abdominal pain Acute Abdominal pain, chronic, right lower quadrant Acute Acute Crohn's disease Acute Altered mental status Acute Bronchitis Acute Constipation Acute Crohns disease Acute Crohns disease of small intestine Acute Fever Acute Intra-abdominal abscess Acute Malnutrition Acute Postoperative infection Acute Severe sepsis Acute Vomiting Acute
--- NOTE | 2017-10-24 17:34 | ASMTCMCOM ---
CM Note CM Note Notes: Per hosppital pharmacy, TPN ordered obtained and sent to [facility]. The will try to obtain TPN in anticipation of discharge tomorrow, CM to follow. Plan: To SNF with TPN when medically cleared. Date Signed: 10/24/2017 05:34 PM Electronically Signed By:Amelia Ross RN
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
[2017-10-24] MEDS: MICAFUNGIN NA 100 MG in NS 100 ML IV SCH (18:55)
[2017-10-24] MEDS: amLODIPine BESYLATE 5 MG TAB PO SCH (21:32)
[2017-10-24] MEDS: ONDANSETRON 4 MG/2 ML VIAL IVP PRN (21:33)
[2017-10-24] MEDS: TPN 1 EA BAG IV SCH (21:35)
[2017-10-25] MEDS: VANCOMYCIN 500 MG in D5W 100 ML IV SCH ×2 (04:01→16:59)
[2017-10-25] MEDS: ONDANSETRON 4 MG/2 ML VIAL IVP PRN (04:01)
[2017-10-25] MEDS: FLUoxetine 20 MG CAP PO SCH (08:39)
[2017-10-25] MEDS: oxyCODONE IR 5 MG TAB PO SCH ×3 (08:40→21:14)
[2017-10-25] MEDS: amLODIPine BESYLATE 5 MG TAB PO SCH (08:40)
[2017-10-25] MEDS: PREGABALIN 50 MG CAP PO SCH ×3 (08:40→21:13)
[2017-10-25] MEDS: LORazepam 0.5 MG TAB PO SCH ×2 (08:40→21:14)
[2017-10-25] MEDS: APIXABAN 5 MG TAB PO SCH ×2 (08:41→21:14)
--- NOTE | 2017-10-25 09:51 | SOAPPROG ---
SOAP Progress Note Assessment/Plan: Assessment/Plan: 71yo F with complicated surgical history and Crohn's s/p open repair of incarcerated ventral hernia, SUHAIL. Depression. Severe protein evangelist malnutrition BMI 19. 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 JAS in place. Nausea resolved FEN -Clear liquids - unrestricted volume today. Continue TPN while fistula healing, 1-2 more weeks Heme/ID - LUE DVT around PICC, started on Eliquis. DVT R basilic - PICC removed and replaced, anticoagulation not needed, repeat US with stable clot. ABLA s/p transfusion. H/H improved. IV antibiotics - ID following PT/OT, dietary following, palliative following Dispo - [facility] on discharge - pt and family agree that she is unsafe to return home. Patient is nearing discharge, and is stable from surgical perspective with close outpatient follow-up. Seen c Dr. Yee. S: feeling well this am, no complaints. wants clear liquids. No nausea, vomiting , pain or fevers O: laying in bed, comfortable, NAD no increased work of breathing BS present. Soft, nontender LLQ dressing intact JAS scant bilious fluid Objective: Vital Signs Temp Pulse Resp BP Pulse Ox 36.9 C 88 16 129/61 H 96 10/25/17 07:58 10/25/17 07:58 10/25/17 07:58 10/25/17 08:40 10/25/17 07:58 Laboratory Results 10/24/17 04:20 10/25/17 04:00 10/24/17 10/25/17 10/26/17 05:59 05:59 05:59 Intake Total 1 400 850 Output Total 60 5 20 Balance 2030 395 830 PT 15.6 SEC (12.0-15.0) H 10/24/17 04:20 INR 1.22 (0.83-1.16) H 10/24/17 04:20 ICD10 Worksheet Patient Problems: Problems Problem Status Onset Abdominal pain Acute Periumbilical hernia Acute Abdominal pain Acute Abdominal pain, chronic, right lower quadrant Acute Acute Crohn's disease Acute Altered mental status Acute Bronchitis Acute Constipation Acute Crohns disease Acute Crohns disease of small intestine Acute Fever Acute Intra-abdominal abscess Acute Malnutrition Acute Postoperative infection Acute Severe sepsis Acute Vomiting Acute
--- NOTE | 2017-10-25 11:36 | HOSPPROG ---
Hospitalist Progress Note Assessment/Plan: #Crohn's with enterocutaneous fistula/abscess -IV vanc/micafungin through 10/29 -NPO/TPN -80z liquid q8hr for comfort only #Superficial DVT: PICC moved to other arm. Eliquis #HTN: improved with Norvasc #Opioid withdrawal: back on home oxycodone #Tachycardia: resolved with IVFs #DC tomorrow once TPN arrives at SNF Subjective: very tired, but did walk the unit Objective: Vital Signs Temp Pulse Resp BP Pulse Ox 36.9 C 88 16 129/61 H 96 10/25/17 07:58 10/25/17 07:58 10/25/17 07:58 10/25/17 08:40 10/25/17 07:58 Laboratory Results 10/24/17 04:20 10/25/17 04:00 10/24/17 10/25/17 10/26/17 05:59 05:59 05:59 Intake Total 2091 400 850 Output Total 60 5 20 Balance 2031 395 830 PT 15.6 SEC (12.0-15.0) H 10/24/17 04:20 INR 1.22 (0.83-1.16) H 10/24/17 04:20 - Time Spent With Patient Time Spent with Patient: greater than 35 minutes Time Spent with Patient: Greater than 35 minutes spent on this patients care, greater than 50% of time spent counseling, educating, and coordinating care regarding the above mentioned plan. - Physical Exam Constitutional: no apparent distress Eyes: PERRL Ears, Nose, Mouth, Throat: moist mucous membranes Cardiovascular: regular rate and rhythym Respiratory: no respiratory distress Gastrointestinal: normoactive bowel sounds, other (JAS in place with min drainage. LLQ wound dressed) Genitourinary: no bladder fullness Musculoskeletal: full muscle strength Neurologic: AAOx3, CN II-XII Intact Psychiatric: interacting appropriately Lymph, Heme, Immunologic: no cervical LAD ICD10 Worksheet Patient Problems: Problems Problem Status Onset Abdominal pain Acute Periumbilical hernia Acute Abdominal pain Acute Abdominal pain, chronic, right lower quadrant Acute Acute Crohn's disease Acute Altered mental status Acute Bronchitis Acute Constipation Acute Crohns disease Acute Crohns disease of small intestine Acute Fever Acute Intra-abdominal abscess Acute Malnutrition Acute Postoperative infection Acute Severe sepsis Acute Vomiting Acute
--- NOTE | 2017-10-25 15:15 | ASMTCMCOM ---
CM Note CM Note Notes: Spoke w surgery team and hospitalist: patient will be ready for discharge tomorrow AM. Tiara from [facility] was here to visit patient and confirm that they can accept tomorrow morning. Her TPN should arrive at their facility tonight. Case Management to faciliate discharge tomorrow. Date Signed: 10/25/2017 03:14 PM Electronically Signed By:Olivia Carnes RN
[2017-10-25] MEDS: MICAFUNGIN NA 100 MG in NS 100 ML IV SCH (18:02)
[2017-10-25] MEDS: TPN 1 EA BAG IV SCH (21:25)
[2017-10-26] MEDS: VANCOMYCIN 500 MG in D5W 100 ML IV SCH ×2 (03:33→16:07)
[2017-10-26] MEDS: FLUoxetine 20 MG CAP PO SCH (08:00)
[2017-10-26] MEDS: PREGABALIN 50 MG CAP PO SCH ×2 (08:00→16:06)
[2017-10-26] MEDS: amLODIPine BESYLATE 5 MG TAB PO SCH (08:00)
[2017-10-26] MEDS: oxyCODONE IR 5 MG TAB PO SCH ×2 (08:01→12:43)
[2017-10-26] MEDS: LORazepam 0.5 MG TAB PO SCH (08:01)
[2017-10-26] MEDS: APIXABAN 5 MG TAB PO SCH (08:01)
--- NOTE | 2017-10-26 08:42 | HOSPPROG ---
Hospitalist Progress Note Assessment/Plan: #Crohn's with enterocutaneous fistula/abscess -IV vanc/micafungin through 10/29 -NPO/TPN -8 oz liquid q8hr for comfort only #Left arm superficial DVT (due to PICC), RUE DVT (PICC-related): line is functioning, will cont Eliquis #HTN: improved with Norvasc #Opioid withdrawal: back on home oxycodone #Tachycardia: resolved with IVFs #DC tomorrow once TPN arrives at SNF Subjective: no acute events Objective: Vital Signs Temp Pulse Resp BP Pulse Ox 36.6 C 83 16 119/63 97 10/26/17 07:54 10/26/17 07:54 10/26/17 07:54 10/26/17 08:00 10/26/17 07:54 Laboratory Results 10/24/17 04:20 10/25/17 04:00 10/25/17 10/26/17 10/27/17 05:59 05:59 05:59 Intake Total 400 2533 Output Total 5 1875 Balance 395 658 PT 15.6 SEC (12.0-15.0) H 10/24/17 04:20 INR 1.22 (0.83-1.16) H 10/24/17 04:20 - Physical Exam Constitutional: no apparent distress Eyes: PERRL Ears, Nose, Mouth, Throat: moist mucous membranes Cardiovascular: regular rate and rhythym Respiratory: no respiratory distress Gastrointestinal: other (JAS in place) Skin: warm Musculoskeletal: full muscle strength Neurologic: AAOx3 ICD10 Worksheet Patient Problems: Problems Problem Status Onset Abdominal pain Acute Abdominal pain Acute Abdominal pain, chronic, right lower quadrant Acute Acute Crohn's disease Acute Altered mental status Acute Bronchitis Acute Constipation Acute Crohns disease Acute Crohns disease of small intestine Acute Fever Acute Intra-abdominal abscess Acute Malnutrition Acute Periumbilical hernia Acute Postoperative infection Acute Severe sepsis Acute Vomiting Acute
--- NOTE | 2017-10-26 08:58 | PDIAF ---
- Diagnosis Diagnosis: Enterocutaneous fistula/abdominal abscess Code Status: Do Not Resuscitate - Medication Management Discharge Medications: Medications to Continue on Transfer Dicyclomine [Bentyl 10 MG (*)] 10 mg PO BID 12/06/16 [Last Taken 10/04/17] FLUoxetine [Prozac 20 MG (*)] 60 mg PO DAILY 12/06/16 [Last Taken 10/04/17] LORazepam [Ativan (*)] 0.5 mg PO BID 12/06/16 [Last Taken 10/04/17] Pregabalin [Lyrica 50mg (*)] 100 mg PO TID 03/28/17 [Last Taken 10/04/17] Cholecalciferol Vit D3 [Vitamin D3 (*)] 1,000 units PO DAILY 09/06/17 [Last Taken 10/04/17] Multivitamins [Multivitamin (*)] 1 each PO DAILY 09/06/17 [Last Taken 10/04/17] oxyCODONE IR [Oxycodone Ir (*)] 5 mg PO DAILY@13 09/06/17 [Last Taken 10/04/17] oxyCODONE IR [Oxycodone Ir (*)] 10 mg PO BID 09/06/17 [Last Taken 10/04/17] Acetaminophen [Tylenol 325mg (*)] 650 mg PO Q6 PRN tab 09/15/17 [Last Taken Unknown] oxyCODONE IR [Oxycodone Ir (*)] 5 - 10 mg PO Q4HRS PRN #30 tab 09/15/17 [Last Taken 10/04/17] Micafungin Na [Mycamine 100Mg Vial] 100 mg IV DAILY@1700 vial 10/26/17 [Last Taken Unknown] TPN [Hyperalimentation] 1 ea IV DAILY21 bag 10/26/17 [Last Taken Unknown] Vancomycin [Vancomycin (*)] 500 mg IV Q12H vial 10/26/17 [Last Taken Unknown] Ink Jet Operator Antibiotics: micafungin 100mg IV daily; vancomycin 500mg IV q12h Ink Jet Operator Antibiotic Stop Date: 10/29/17 Discharge Medications: Refer to the Discharge Home Medication list for PRN reason. PICC Care - Routine: Yes - Orders Services needed: Registered Nurse, Certified Cardiology Manager, Master Clinical Research Administrator , Physical Therapy Diet Recommendation: no restrictions on diet Diet Texture: Regular Texture Diet Additional Instructions: Limit clear liquids to 8oz q8h for comfort only. Keep JAS drain in place, empty and record output daily. Change LLQ outer dressing as needed. Will continue TPN and follow-up weekly with Dr. Yee/Sosa GARDNER until fistula is healed. - Labs/Radiology BMP Date: 10/27/17 CBC w/diff Date: 10/27/17 (every tuesday) CMP Date: 10/24/17 (every tuesday) Vanco Trough Date and Time: 10/26/2017 Call or Fax Lab and Imaging Results to: Tami Benitez MD [facility] at fax [phone] - Follow Up Care Current Providers and Referrals: Kassy Yee MD [Medical Doctor] - Cherelle Welsh MD [Primary Care Provider] - As per Instructions
--- NOTE | 2017-10-26 11:41 | GDS ---
[f rep st] DISCHARGE SUMMARY DISCHARGE DIAGNOSIS: 1. Crohn's with enterocutaneous fistula/abscess. 2. Superficial deep venous thrombosis. 3. Hypertension. 4. Opioid withdrawal. 5. Chronic opioid dependency. 6. Tachycardia. 7. Incarcerated ventral hernia. HISTORY OF PRESENT ILLNESS: A 71-year-old female with a complicated surgical history related to Crohn's disease. She was most recently taken to the OR by Dr. Yee 09/09/2017 for resection of a colocutaneous fistula. She presented to the ER here with worsening abdominal pain. She noticed a bulge around her umbilicus, which was present for a week, but has increased in size and becoming more painful. HOSPITAL COURSE: 1. Incarcerated ventral hernia: Status post ex lap, lysis of adhesions and ventral hernia repair 10/04/2017, by Dr. Yee. 2. Enterocutaneous fistula/abscess: Abscess drained 10/13 by IR. JAS drain is in place. She should follow up with Dr. Yee until fistula is healed. Will need TPN. She can have 8 ounces of water every 8 hours for comfort only, but n.p.o. other than that. Continue IV vancomycin and micafungin per Infectious Disease. Stop date 10/29/2017. 3. Left superficial DVT/RUE DVT: both due to PICC. PICC now in RUE, but line functioning. Will keep in place and continue Eliquis. 4. Hypertension: Norvasc. 5. Narcotic withdrawal: This occurred early in her admission. She is back on her home dose of oxycodone. 6. Tachycardia: Resolved. 7. Disposition: Patient is stable for discharge to [facility]. FOLLOWUP: 1. Dr. Yee. 2. Continue micafungin and IV vancomycin through 10/29/2017. 3. N.p.o./TPN. May drink clear liquids with a max fluid 8 ounces every 8 hours for comfort only. PHYSICAL EXAMINATION: VITAL SIGNS: Today, temperature 36.6, blood pressure 119 /63, heart rate 80s, respirations 16, 97% on room air. GENERAL: Very thin, no acute distress HEENT: PERRLA. EOMI. Oropharynx clear. CV: Regular rate and rhythm. No murmurs, gallops, or rubs. LUNGS: Clear. ABDOMEN: Soft, nontender , nondistended. JAS drain in place with greenish bluish fluid. Quiet bowel sounds. : No Leiva. MUSCULOSKELETAL: 5/5 upper and lower extremity strength. NEUROLOGIC: 2 through 12 intact. Normal sensation to touch. No pronator drift. No facial droop. PSYCHIATRIC: Alert and oriented x3. /[id number]/MODL Time spent on DC > 35 min bedside with patient explaining medication changes, coordinating DC with case management. Addendum: 10/27/17 13:15. Orders for Norvasc and Eliquis were not on discharge AUG. I have added these to medication list and faxed over to [facility]
[2017-10-26 16:18] VITALS: BP 110/67
--- NOTE | 2017-10-26 17:08 | SOAPPROG ---
SOAP Progress Note Assessment/Plan: Assessment/Plan: 71yo F with complicated surgical history and Crohn's s/p open repair of incarcerated ventral hernia, SUHAIL. Depression. Severe protein evangelist malnutrition BMI 19. 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 JAS in place. Nausea resolved FEN -Clear liquids - unrestricted volume today. Continue TPN while fistula healing, 1-2 more weeks Heme/ID - LUE DVT around PICC, started on Eliquis. DVT R basilic - PICC removed and replaced, anticoagulation not needed, repeat US with stable clot. ABLA s/p transfusion. H/H improved. IV antibiotics - ID following PT/OT, dietary following, palliative following Dispo - [facility] on discharge - pt and family agree that she is unsafe to return home. DC today. Seen c Dr. Yee. S: feeling well, ready to go O: laying in bed, comfortable, NAD no increased work of breathing Soft, nontender LLQ dressing intact JAS scant bilious fluid Objective: Vital Signs Temp Pulse Resp BP Pulse Ox 36.8 C 78 16 110/67 96 10/26/17 16:15 10/26/17 16:15 10/26/17 16:15 10/26/17 16:15 10/26/17 16:15 Laboratory Results 10/24/17 04:20 10/25/17 04:00 10/25/17 10/26/17 10/27/17 05:59 05:59 05:59 Intake Total 400 2533 738 Output Total 5 1875 25 Balance 395 658 713 PT 15.6 SEC (12.0-15.0) H 10/24/17 04:20 INR 1.22 (0.83-1.16) H 10/24/17 04:20 ICD10 Worksheet Patient Problems: Problems Problem Status Onset Abdominal pain Acute Periumbilical hernia Acute Abdominal pain Acute Abdominal pain, chronic, right lower quadrant Acute Acute Crohn's disease Acute Altered mental status Acute Bronchitis Acute Constipation Acute Crohns disease Acute Crohns disease of small intestine Acute Fever Acute Intra-abdominal abscess Acute Malnutrition Acute Postoperative infection Acute Severe sepsis Acute Vomiting Acute
[2017-10-26] MEDS: MICAFUNGIN NA 100 MG in NS 100 ML IV SCH (17:40)
--- NOTE | 2017-10-27 14:10 | ASMTCMCOM ---
CM Note CM Note Notes: Pt DC'd yesterday to [facility]. Pt also to have [facility] at [place]. Final orders faxed to both. Pt's home health RN September called today to state that pt had called her in distress b/c she felt she was not getting her meds on time and that her diet order was not being followed. Spoke with Tiara and she will investigate. Also called Gayatri from [facility] and asked if she can visit with pt today to help with her concerns. Date Signed: 10/27/2017 02:09 PM Electronically Signed By:Germaine Pruitt LCSW
--- NOTE | 2017-10-27 16:35 | ASDISCHSUM ---
Discharge Information Plan Status: Medically Cleared to Leave: Discharge Date:10/26/2017 08:00 PM CM D/C Disposition: ADT D/C Disposition:Senior Living Facility Projected Discharge Date:10/19/2017 11:00 AM Transportation at D/C: Discharge Delay Reason: Follow-Up Date:10/19/2017 11:00 AM Discharge Slot: Final Diagnosis: Placement Information Referral Type:*Long Term/SNF Referral ID:[id number] Provider Name:Odilia Barger [place] Address 1:[address] Phone Number: Address 2: Fax Number: [facility] Selection Factors: State:[place] Referral Type:Palliative Care Referral ID:[id number] Provider Name:[facility] Address 1:[address] Phone Number: Address 2: Fax Number: [facility]:[place] Selection Factors: State:[place] Patient Contact Information Contact Name:JOAQUINA Relationship:Daughter Address:[address] Work Phone: [facility]:[place] Alternate Phone: State/Zip Code:[place] [address] Email: Financial Information Financial Class:Medicare Primary Plan Desc:MEDICARE INPATIENT Primary Plan Number:[id number] Secondary Plan Desc:MED[place] Secondary Plan Number:[id number] Assessment Information [facility] CM Progress Note CM Note CM Note Notes: Pt presented to the ED with abdominal pain and fever. Patient is well known to [facility] (most recent DC 09/15/17) and has multiple inpatient admissions, abdominal surgeries in the past year or so. Pt has a complex medical history related to Crohn's disease. Please refer to previous admission reports and notes for additional info. Pt admitted for abdominal pain and fever; CT shows new ventral abdominal wall hernia containing a segment of small bowel and also acute small bowel enteritis with possible stricture. Pt told ED MD that she does not want to have any more surgeries and that she wants to fill out paperwork to be comfort care only. Pt's most recent Advance Directive from 12/19/17 is scanned into the pt chart. Pt's MDPOA (also scanned into pt chart) is her biological daughter Annika Hill ([phone]) who lives in [place] and is on her way to [facility]. Pt's non-biological "daughter" Debbie Valiente ([phone]) lives in [place] is also very involved. Pt has been receiving RN/PT/OT/CHICK GRADER/LSCW through [facility]. Spoke with Jes RN ([phone]) and she states that patient recently was living at home in [place] with her longtime partner/boyfriend and caregiver (via [facility]), Orlando Weinberg, but on 09/23/17, the patient and Debbie called [place] Police and had Orlando arrested for "acting bizarre" and reportedly taking some of the pt's medications. Per September, Orlando is still in [place] and will not be returning to the home because the pt is "severing their relationship." September said they have been trying to get pt new caregiver services through [facility] but is not sure where they are in that process. Per September, pt would benefit from a palliative care consult w/ Annika present (re:pt's wishes for comfort care only), a behavioral health consult or mental health eval (September concerned about pt's erratic/emotional behavior, depression, intermittent paranoia and forgetfulness when stressed), pain medication management consult (pt has a lot of narcotics at home and needs med supervision), pt's high fall risk (pt had a fall yesterday) and thinks pt would also ultimately need a SNF placement. Pt was at [facility] in November 2016 (see ED CM Note from that visit for background info). Pt also mentioned to September that she would be interested in a place like "[facility]." One of the pt's social workers through [facility] is My Mcconnell ([phone]) and knows the patient very well; please reach out to her for additional psycho/social background. Pt's PCP is Dr Cherelle Welsh and is also followed closely by Dr Kassy Yee and her PA Sosa Ortiz. Exact DC needs TBD but may anticipate Palliative Care consult with pt and daughters, cognitive/mental health eval, etc.; and either DC to Home w/HC with existing therapies + new [facility]I caregiver, vs. Asstd Living vs. SNF. CM to follow. Date Signed: 10/04/2017 06:33 PM Electronically Signed By:Shruthi Chambers RN LACE LACE Comorbidities - select Answers: History of falls all that apply Opioid dependence / Chronic pain Palliative care / End of life trajectory Other Notes: Crohns disease # of Emergency department Answers: 3-4 visits in the last 6 months Social determinants Answers: Mental health diagnosis (anxiety, depression, pers onality disorders, etc.) Score: 16 Date Signed: 10/04/2017 06:36 PM Electronically Signed By:Shruthi Chambers RN [facility] CM Progress Note CM Note CM Note Notes: * Please also read Case Management note from 10/04 for additional important patient information * Today I spoke Angélica Smith, patient's [facility] sterilization technician ([phone]). Angélica informs me that they are in the process of setting up unskilled caregiving/homemaking services for patient (this would be in addition to the skilled services she already receives with [facility]). We will have a palliative care consult today with patient's daughters at 1400, and I have also ordered a Behavioral Health RN consult. PT/OT are ordered and pending. Case Management will follow. Date Signed: 10/05/2017 12:35 PM Electronically Signed By:Olivia Carnes RN [facility] Progress Note CM Note CM Note Notes: Productive palliative care consult with patient, daughter/MDPOA Zion and Victor Hugo Martínez. Both patient and daughter agree that patient has been experiencing a decline in her physical and mental health and that she is not doing well living alone. They are interested in Assisted Living, so we discussed this. I encouraged Zion to visits ALFs and get on waiting lists LOUIE, since this is a process that can take months. We also discussed the benefits of a SNF in the meantime, for both physical rehab, socialization, and nursing care. Patient is well supported at home with skilled and (pending) unskilled help, but she is so frail that the unsupervised time poses a high risk. Her daughter mentioned that she would be able to spend more time with patient in her home if there is a lag time between SNF and Assisted Living. I will send referrals to [facility] and [facility], and Victor Hugo will contact [facility] to come explain palliative care services to patient and daughter. He will also coordinate care with her PCP's office. I spoke with Sosa, surgery PA, to include her in this planning. It seems we have a lot of resources in place already for this patient, so hopefully we can create a realistic and appropriate discharge plan. Date Signed: 10/05/2017 03:39 PM Electronically Signed By:Olivia Carnes RN [facility] Progress Note CM Note CM Note Notes: Pt and dtr met with [facility] nava today and decided to DC with their services. Also, dtr toured [facility] and [facility] today and chose [facility]. Let Tahira at [facility] know. Date Signed: 10/06/2017 01:36 PM Electronically Signed By:Germaine Pruitt LCSW [facility] CM Progress Note CM Note CM Note Notes: Reviewed chart, spoke with LUCAS Mendieta regarding discharge plan of care, pt's progress. Per prior CM notes, pt has been set up with [facility] services. Pt and family have selected [facility] for discharge. Pt's family is also exploring various Assisted Living facilities in the area for after rehab. Rosa Isela will follow pt after discharge. Spoke with DAINA Alexandre to clarify pt's palliative care wishes. Per Sosa, pt may need further treatment and surgery would like to support her wishes. Encouraged Sosa to discuss specific treatments with pt and family directly as no specific orders have been written at this time for comfort measures only. Sosa to further discuss with surgeon and pt. Pt's discharge date remains unclear at this time. [facility] is aware. CM will continue to follow. Current Discharge Plan: [facility] and Assisted Living after rehab Date Signed: 10/07/2017 04:42 PM Electronically Signed By:Taylor Grimes RN [facility] CM Progress Note CM Note CM Note Notes: Chart reviewed. Victor Hugo from Palliative care net with patient this am as she has severe pain and stated she was "done" with treatment. She is to go to [facility] with [facility] Nava upong medical clearance for discharge. Her pain is controlled today and she wishes to remain on same plan of care path. Her daughter Annika is to be here tomorrow at some point. Plan is SNF with [facility] to follow. Date Signed: 10/10/2017 04:56 PM Electronically Signed By:Amelia Ross RN [facility] CM Progress Note CM Note CM Note Notes: RN today indicated that pt has been expressing a wish to "give up." Asked Victor Hugo in palliative care to request that [facility] meet with pt in next few days for support. Pt has previously been set up with [facility]. Date Signed: 10/13/2017 04:03 PM Electronically Signed By:Germaine Pruitt LCSW [facility] CM Progress Note CM Radha CM Note Notes: Sent updates to [facility] today. Also asked [facility] if someone could come to meet with pt for support while she is still at [facility]. Date Signed: 10/14/2017 12:10 PM Electronically Signed By:Germaine Pruitt LCSW [facility] Progress Note CM Note CM Note Notes: ID following and continuing IV ABX. Pt to go to IR for drainage of abdominal collections. Day 7 for TPN and heparin drip started for DVT. D/C plan is still [facility] when pt is medically cleared to go. CM will continue to follow. Date Signed: 10/17/2017 03:57 PM Electronically Signed By:HANNAH Little [facility] CM Progress Note CM Note CM Note Notes: DC plan remains for pt to go to [facility] when ready. Spoke w/Jn today at [facility] regarding pt's needs at this time. She will need to go on TPN as well as 2 IV ABX's ; updates sent to [facility] with IV ABX info so they can determine if they can still accept. CM will follow. Date Signed: 10/18/2017 05:42 PM Electronically Signed By:Perla Hurley RN [facility] CM Progress Note CM Note CM Note Notes: Per surgery note, patient has had new onset n/v with unclear etiology. A CT of the abdomen has been ordered. She has also complained of anxiety, which has increased her blood pressure. Patient will need several weeks of TPN and at least two weeks of IV antibiotics. Per Tiara at [facility], they are still willing to accept but will need 24 hours notice before discharge to get the correct enteral feeding formula. Case Management will follow. Date Signed: 10/22/2017 11:38 AM Electronically Signed By:Olivia Carnes RN [facility] CM Progress Note CM Note CM Note Notes: Per [facility], TPN ordered obtained and sent to [facility]. The will try to obtain TPN in anticipation of discharge tomorrow, CM to follow. Plan: To SNF with TPN when medically cleared. Date Signed: 10/24/2017 05:34 PM Electronically Signed By:Amelia Ross RN [facility] CM Progress Note CM Note CM Note Notes: Spoke w surgery team and hospitalist: patient will be ready for discharge tomorrow AM. Tiara from [facility] was here to visit patient and confirm that they can accept tomorrow morning. Her TPN should arrive at their facility tonight. Case Management to faciliate discharge tomorrow. Date Signed: 10/25/2017 03:14 PM Electronically Signed By:Olivia Carnes RN [facility] CM Progress Note CM Note CM Note Notes: Pt DC'd yesterday to [facility]. Pt also to have [facility] at [place]. Final orders faxed to both. Pt's home health RN Jes called today to state that pt had called her in distress b/c she felt she was not getting her meds on time and that her diet order was not being followed. Spoke with Tiara and she will investigate. Also called Gayatri from [facility] and asked if she can visit with pt today to help with her concerns. Date Signed: 10/27/2017 02:09 PM Electronically Signed By:Germaine Pruitt LCSW Intervention Information Intervention Type:Post Acute Communication Date of Service:10/04/2017 06:37 PM Patient Type:Observation Staff Member:LUCAS Chambers, Shruthi Hours:0.5 Discipline:Email Campaign Manager Severity: Comment:Spoke with [facility] RN Intervention Type:*MANJARREZ-Signed Date of Service:10/05/2017 11:25 AM Patient Type:Observation Staff Member:Miriam Ronquillo Hours: Discipline: Severity: Comment: Intervention Type:*IM-Signed Date of Service:10/26/2017 10:35 AM Patient Type:Inpatient Staff Member:Miriam Ronquillo Hours: Discipline: Severity: Comment:
--- NOTE | 2017-10-31 12:14 | PQFORM ---
PHYSICIAN QUERY FORM Needs Your Response This query form is being sent to you to assure this patient record is coded properly. Please respond to the question below: ORDER PROCESSOR QUESTION: Dr. Katz, On 10/26 and throughout the chart, this patient is documented as having severe protein calorie malnutrition with a BMI of 19. It is documented as low as [address] Yee on 10/22. The patient received TPN for increased nutrition as well as bowel rest while healing both in hospital and with further nutritional support at the SNF upon discharge. Is it your clinical opinion that any of the following be add as a diagnosis on the discharge summary? ___x____ Severe protein calorie malnutrition Protein calorie malnutrition Other - undetermined Thank you, CLAUDIA Garza HIM Coding INSTRUCTIONS FOR RESPONSE: Answer question by clicking on the "Edit Document" button. Move cursor to area below the stars. When complete, hit "Save." Click on the "Sign" button, then click "Sign" again. Type in your PIN and hit "Enter." MTDD
== END 2017-10-26 20:00 | DRG 353 ==
LOC: EDUNIT# → OBSVTOIN 18:54 → EEVIPCON 18:54 → F1N 10-05 00:20
PROVIDERS: ADMIT Surgery; ATTEND Internal Medicine
DX: K43.6 Other and unspecified ventral hernia with obstruction, without gangrene (principal); K50.913 Crohn's disease, unspecified, with fistula; K50.914 Crohn's disease, unspecified, with abscess; E43 Unspecified severe protein-calorie malnutrition; I16.9 Hypertensive crisis, unspecified; F11.23 Opioid dependence with withdrawal; I82.611 Acute embolism and thrombosis of superficial veins of right upper extremity; Z68.1 Body mass index [BMI] 19.9 or less, adult; D62 Acute posthemorrhagic anemia; M41.9 Scoliosis, unspecified; Z98.1 Arthrodesis status
CPT/HCPCS: 85520-90; 96374; 97110-GP; 97116-GP; 97161-GP; 97166-GO; 97530-GO; 97530-GP; 97535-GO; C1751; C9399; G0378; G8978-GP-CI; G8978-GP-CJ; G8978-GP-CL; G8979-GP-CH; G8979-GP-CI; G8979-GP-CJ; G8980-GP-CI; G8987-GO-CJ; G8988-GO-CI; G8989-GO-CJ; J0360; J1100; J1170; J1450; J1644; J1956; J2060; J2248; J2250; J2310; J2405; J2550; J2704; J2765; J3370; J3480; P9016; Q9967

== ENCOUNTER 2017-12-26 17:55 | Inpatient (IN) | payer OTHER, MEDICAID ==
[2017-12-26] MEDS ORDERED: HYDROmorphONE/DILAUDID 2 MG/ML INJ IVP ONE (18:35)
--- NOTE | 2017-12-26 18:37 | EDPHY ---
H & P Stated Complaint: l sided abd pain/had herniated intestinal surg Time Seen by Provider: 12/26/17 18:26 HPI/ROS: CHIEF COMPLAINT: Abdominal pain HISTORY OF PRESENT ILLNESS: The patient is a 72-year-old female with a complicated abdominal surgical history who presents to the emergency department complaining of pain around her JAS drain and bloating. 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 She also has a history of DVT and is on Eliquis as well as narcotic dependency. She was last here in September and at that point headache JAS drain placed and was started on TPN. She has done relatively well for the last few months but states that today she began having a return of drainage around her JAS drain any increased pain at the area as well as bloating. She continues to pass gas and have bowel movements. No vomiting. No fever. No urinary symptoms. She states that she took her Ultram today without any improvement. REVIEW OF SYSTEMS: Constitutional: denies: chills, fever, recent illness, recent injury EENTM: denies: blurred vision, double vision, nose congestion Respiratory: denies: cough, shortness of breath Cardiac: denies: chest pain, irregular heart rate, lightheadedness, palpitations Gastrointestinal/Abdominal: See HPI Genitourinary: denies: dysuria, frequency, hematuria, pain Musculoskeletal: denies: joint pain, muscle pain Skin: denies: lesions, rash, jaundice, bruising Neurological: denies: headache, numbness, paresthesia, tingling, dizziness, weakness Hematologic/Lymphatic: denies: blood clots, easy bleeding, easy bruising Immunologic/allergic: denies: HIV/AIDS, transplant EXAM: GENERAL: Well-appearing, well-nourished and in no acute distress. HEAD: Atraumatic, normocephalic. EYES: Pupils equal round and reactive to light, extraocular movements intact, sclera anicteric, conjunctiva are normal. ENT: TMs normal, nares patent, oropharynx clear without exudates. Moist mucous membranes. NECK: Normal range of motion, supple without lymphadenopathy or JVD. LUNGS: Breath sounds clear to auscultation bilaterally and equal. No wheezes rales or rhonchi. HEART: Regular rate and rhythm without murmurs, rubs or gallops. ABDOMEN: JAS drain in place small amount of thick brownish drainage surrounding and within the tube, multiple incisions healed, slight distension, tenderness around the drain site, minimal erythema. BACK: No CVA tenderness, no spinal tenderness, step-offs or deformities EXTREMITIES: Normal range of motion, no pitting or edema. No clubbing or cyanosis. NEUROLOGICAL: Cranial nerves II through XII grossly intact. Normal speech, normal gait. 5/5 strength, normal movement in all extremities, normal sensation PSYCH: Normal mood, normal affect. SKIN: Warm, dry, normal turgor, no visible rashes or lesions. Source: Patient Exam Limitations: No limitations - Personal History Current Tetanus Diphtheria and Acellular Pertussis (TDAP): Yes Tetanus Vaccine Date: >10 YEARS - Medical/Surgical History Hx Asthma: No Hx Chronic Respiratory Disease: No Hx Diabetes: No Hx Cardiac Disease: No Hx Renal Disease: No Hx Cirrhosis: No Hx Alcoholism: No Hx HIV/AIDS: No Hx Splenectomy or Spleen Trauma: No Other PMH: pmh-Crohns, DD scoliosis, SBO. psh- bowel resection 1997, breast augmentation, c-spine fusion, tubal ligation, ostomy, reverse ostomy, a12 abdominal surgeries - Family History Significant Family History: No pertinent family hx - Social History Smoking Status: Former smoker Alcohol Use: None Constitutional: Initial Vital Signs Temperature (C) 37.1 C 12/26/17 18:01 Heart Rate 100 12/26/17 18:01 Respiratory Rate 18 18 18:01 Blood Pressure 116/56 L 12/26/17 18:01 O2 Sat (%) 96 12/26/17 18:01 O2 Delivery Mode Room Air Allergies/Adverse Reactions: Penicillins Allergy (Severe, Verified 12/26/17 18:00) SEIZURES Sulfa (Sulfonamide Antibiotics) Allergy (Severe, Verified 12/26/17 18:00) NAUSEA azathioprine Allergy (Unknown, Verified 12/26/17 18:00) Rash budesonide Allergy (Unknown, Verified 12/26/17 18:00) Rash cefuroxime Allergy (Unknown, Verified 12/26/17 18:00) Other-Enter Comments ertapenem Allergy (Unknown, Verified 12/26/17 18:00) Other-Enter Comments fentanyl Allergy (Unknown, Verified 12/26/17 18:00) MEMORY LOSS gabapentin Allergy (Unknown, Verified 12/26/17 18:00) Rash infliximab Allergy (Unknown, Verified 12/26/17 18:00) Itching mesalamine Allergy (Unknown, Verified 12/26/17 18:00) Rash morphine Allergy (Unknown, Verified 12/26/17 18:00) PT BECOMES "MEAN" azathioprine sodium [From Imuran] Allergy (Verified 12/26/17 18:00) Rash Home Medications: Medication Instructions Recorded Dicyclomine [Bentyl 10 MG (*)] 10 mg PO BID 12/06/16 LORazepam [Ativan (*)] 0.5 mg PO BID 12/06/16 Cholecalciferol Vit D3 [Vitamin D3 1,000 units PO DAILY 09/06/17 (*)] Multivitamins [Multivitamin (*)] 1 tab PO DAILY 09/06/17 Acetaminophen [Tylenol 325mg (*)] 650 mg PO Q6 PRN tab 09/15/17 TPN [Hyperalimentation] 1 ea IV DAILY21 bag 10/26/17 Apixaban [Eliquis] 5 mg PO BID #60 tab 10/27/17 amLODIPine BESYLATE [Norvasc 5 mg 5 mg PO DAILY #30 tab 10/27/17 (*)] Pregabalin [Lyrica 100mg (*)] 200 mg PO BID 12/26/17 traMADol [Ultram 50 mg (*)] 50 mg PO TID PRN 12/26/17 Medical Decision Making - Diagnostics Imaging Results: Imaging Impressions Abdomen CT 12/26/17 18:36 Impression: 1. Dilated and fluid-filled loops of large and small bowel are seen diffusely with no point of transition suggesting the possibility of ileus or enteritis. 2. Drainage tube is in position in the anterior abdominal wall in the pelvis on the left side. 3. 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 4. See above report for additional findings. Results called and discussed with TRISTEN NGUYEN M.D. on 12/26/2017 at 20:09. Imaging: Discussed imaging studies w/ rn call center Radiologist ED Course/Re-evaluation: 8:[address] p[address] we discussed the CT results. The patient is feeling better after Dilaudid. She appears to have an ileus versus enteritis. She does eat some food in addition to her TPN. She states that she constantly has diarrhea. I will obtain a GI panel and plan for admission. I have paged Dr. Doan who is on -call for Dr. Mccain. 8:30 p.m. I discussed the case with Dr. Tiara Doan. He requests that we admit to the hospital service. 8:35 p.m. I spoke with [facility] will admit and requests IV fluids and GI panel. Differential Diagnosis: Partial list of the Differential diagnosis considered include but were not limited to; abscess, fistula obstruction, enteritis and although unlikely based on the history and physical exam, I also considered ischemia volvulus. - Data Points Laboratory Results: Laboratory Results 12/26/17 18:56 12/26/17 18:56 Medications Given: Tramadol HCl (Ultram) 50 mg PO TID PRN PRN Reason: Pain, Moderate Stop: 06/24/18 22:53 Last Admin: 12/27/17 06:10 Dose: 50 mg Discontinued Medications Hydromorphone HCl (Dilaudid) 0.5 mg IVP EDNOW ONE Stop: 12/26/17 18:36 Last Admin: 12/26/17 18:42 Dose: 0.5 mg Hydromorphone HCl (Dilaudid) 0.5 mg IVP EDNOW ONE Stop: 12/26/17 20:42 Last Admin: 12/26/17 20:42 Dose: 0.5 mg Sodium Chloride (Ns) 1,000 mls @ 0 mls/hr IV EDNOW ONE; Wide Open PRN Reason: Protocol Stop: 12/26/17 20:33 Last Admin: 12/26/17 20:37 Dose: 1,000 mls Departure - Departure Disposition: [facility] ([place], [place]) Inpatient Acute Clinical Impression: Abdominal pain Qualifiers: Abdominal location: generalized Qualified Code(s): R10.84 - Generalized abdominal pain Condition: Fair
[2017-12-26 19:04] LABS: PLATELET COUNT 329 10^3/uL (150-400)
[2017-12-26] MEDS ORDERED: IOPAMIDOL (ISOVUE-300) 100 ML BTL ONE (19:29)
[2017-12-26] MEDS ORDERED: NS 1,000 ML IV ONE (20:32)
[2017-12-26] MEDS ORDERED: HYDROmorphONE/DILAUDID 1 MG/ML INJ ONE (20:40)
[2017-12-26] MEDS ORDERED: HYDROmorphONE/DILAUDID 1 MG/ML INJ IVP ONE (20:41)
[2017-12-26] MEDS ORDERED: ONDANSETRON DISINTEGRATING 4 MG TAB PO PRN (22:46)
[2017-12-26] MEDS ORDERED: ONDANSETRON 4 MG/2 ML VIAL IVP PRN (22:46)
[2017-12-26] MEDS ORDERED: D10W 1,000 ML IV PRN (22:48)
--- NOTE | 2017-12-26 23:00 | PDGENHP ---
History and Physical - Chief Complaint Abdominal pain - History of Present Illness 72 yo F w/ hx of Chron's requiring numerous abdominal surgeries, HTN, DVT, and chronic pain presents with abdominal pain. Patient tells me she has had occasional pain at the site of JAS drain for the last month. Today, however, the pain became severe. She denies fevers of chills. She continues TPN therapy but has been ramping up oral intake as well. She has been eating mild foods like toast, broth, and eggs with increasing frequency. Her last BM was today just prior to arrival and she continues to pass gas. She has been having loose stools for 1 month as well. Of note, she tells me she has weaned herself off of oxycodone and now uses Tramadol for pain. She is compliant with the rest of her medications for DVT and HTN. Case discussed with Dr. Alarcon. Previous records reviewed including D/C summary by Dr. Katz dated 10/26/17. History Information - Allergies/Home Medication List Allergies/Adverse Reactions: Penicillins Allergy (Severe, Verified 12/26/17 18:00) SEIZURES Sulfa (Sulfonamide Antibiotics) Allergy (Severe, Verified 12/26/17 18:00) NAUSEA azathioprine Allergy (Unknown, Verified 12/26/17 18:00) Rash budesonide Allergy (Unknown, Verified 12/26/17 18:00) Rash cefuroxime Allergy (Unknown, Verified 12/26/17 18:00) Other-Enter Comments ertapenem Allergy (Unknown, Verified 12/26/17 18:00) Other-Enter Comments fentanyl Allergy (Unknown, Verified 12/26/17 18:00) MEMORY LOSS gabapentin Allergy (Unknown, Verified 12/26/17 18:00) Rash infliximab Allergy (Unknown, Verified 12/26/17 18:00) Itching mesalamine Allergy (Unknown, Verified 12/26/17 18:00) Rash morphine Allergy (Unknown, Verified 12/26/17 18:00) PT BECOMES "MEAN" tramadol [Tramadol] Allergy (Unknown, Verified 12/26/17 18:00) azathioprine sodium [From Imuran] Allergy (Verified 12/26/17 18:00) Rash Home Medications: Dicyclomine [Bentyl 10 MG (*)] 10 mg PO BID 12/06/16 [Last Taken 12/26/17 17:00] LORazepam [Ativan (*)] 0.5 mg PO BID 12/06/16 [Last Taken 12/26/17 17:00] Cholecalciferol Vit D3 [Vitamin D3 (*)] 1,000 units PO DAILY 09/06/17 [Last Taken 12/26/17 08:00] Multivitamins [Multivitamin (*)] 1 tab PO DAILY 09/06/17 [Last Taken 12/26/17 08 :00] Pregabalin [Lyrica 100mg (*)] 200 mg PO BID 12/26/17 [Last Taken 12/26/17 17:00] traMADol [Ultram 50 mg (*)] 50 mg PO TID PRN 12/26/17 [Last Taken 12/26/17 14:00 ] I have personally reviewed and updated: family history, medical history - Past Medical History Crohn's Disease - Surgical History Additional surgical history: Colectemy s/p ostomy and takedown - Family History Positive for: cancer - Social History Smoking Status: Former smoker Alcohol Use: None Review of Systems Review of Systems: ROS: 10pt was reviewed & negative except for what was stated in HPI & below Physical Exam Physical Exam: Temp Pulse Resp BP Pulse Ox 36.5 C 73 98 H 112/82 H 94 12/26/17 21:15 12/26/17 21:15 12/26/17 21:15 12/26/17 21:15 12/26/17 21:04 Constitutional: no apparent distress, chronically ill appearing Eyes: PERRL, EOMI Ears, Nose, Mouth, Throat: moist mucous membranes, no oral mucosal ulcers Cardiovascular: regular rate and rhythym, no murmur, rub, or gallop Respiratory: no respiratory distress, clear to auscultation Gastrointestinal: normoactive bowel sounds, tenderness (LLQ around JAS drain), No guarding, No rebound, No distension Skin: warm Musculoskeletal: full muscle strength, no muscle tenderness Neurologic: AAOx3, CN II-XII Intact Psychiatric: interacting appropriately, not anxious Lab Data & Imaging Review 12/26/17 18:56 12/26/17 18:56 WBC 6.78 10^3/uL (3.80-9.50) 12/26/17 18:56 RBC 3.58 10^6/uL (4.18-5.33) L 12/26/17 18:56 Hgb 8.6 g/dL (12.6-16.3) L 12/26/17 18:56 Hct 27.1 % (38.0-47.0) L 12/26/17 18:56 MCV 75.7 fL (81.5-99.8) L 12/26/17 18:56 MCH 24.0 pg (27.9-34.1) L 12/26/17 18:56 MCHC 31.7 g/dL (32.4-36.7) L 12/26/17 18:56 RDW 20.6 % (11.5-15.2) H 12/26/17 18:56 Plt Count 329 10^3/uL (150-400) 12/26/17 18:56 MPV 10.8 fL (8.7-11.7) 12/26/17 18:56 Neut % (Auto) 57.6 % (39.3-74.2) 12/26/17 18:56 Lymph % (Auto) 26.0 % (15.0-45.0) 12/26/17 18:56 Schleicher % (Auto) 9.1 % (4.5-13.0) 12/26/17 18:56 Eos % (Auto) 6.3 % (0.6-7.6) 12/26/17 18:56 Baso % (Auto) 0.9 % (0.3-1.7) 12/26/17 18:56 Nucleat RBC Rel Count 0.0 % (0.0-0.2) 12/26/17 18:56 Absolute Neuts (auto) 3.90 10^3/uL (1.70-6.50) 12/26/17 18:56 Absolute Lymphs (auto) 1.76 10^3/uL (1.00-3.00) 12/26/17 18:56 Absolute Monos (auto) 0.62 10^3/uL (0.30-0.80) 12/26/17 18:56 Absolute Eos (auto) 0.43 10^3/uL (0.03-0.40) H 12/26/17 18:56 Absolute Basos (auto) 0.06 10^3/uL (0.02-0.10) 12/26/17 18:56 Absolute Nucleated RBC 0.00 10^3/uL (0-0.01) 12/26/17 18:56 Immature Gran % 0.1 % (0.0-1.1) 12/26/17 18:56 Immature Gran # 0.01 10^3/uL (0.00-0.10) 12/26/17 18:56 Sodium 139 mEq/L (135-145) 12/26/17 18:56 Potassium 5.5 mEq/L (3.3-5.0) H 12/26/17 18:56 Chloride 108 mEq/L (97-110) 12/26/17 18:56 Carbon Dioxide 20 mEq/l (22-31) L 12/26/17 18:56 Anion Gap 11 mEq/L (8-16) 12/26/17 18:56 BUN 30 mg/dL (7-23) H 12/26/17 18:56 Creatinine 0.8 mg/dL (0.6-1.0) 12/26/17 18:56 Estimated GFR > 60 12/26/17 18:56 Glucose 83 mg/dL (70-100) 12/26/17 18:56 Calcium 8.9 mg/dL (8.5-10.4) 12/26/17 18:56 Total Bilirubin 0.3 mg/dL (0.1-1.4) 12/26/17 18:56 Conjugated Bilirubin 0.3 mg/dL (0.0-0.5) 12/26/17 18:56 Unconjugated Bilirubin 0.0 mg/dL (0.0-1.1) 12/26/17 18:56 AST 87 IU/L (14-46) H 12/26/17 18:56 ALT 110 IU/L (9-52) H 12/26/17 18:56 Alkaline Phosphatase 147 IU/L (38-126) H 12/26/17 18:56 Total Protein 6.5 g/dL (6.3-8.2) 12/26/17 18:56 Albumin 3.7 g/dL (3.5-5.0) 12/26/17 18:56 Lipase 191 IU/L (23-300) 12/26/17 18:56 Urine Color YELLOW 07/02/18 19:15 Urine Appearance CLEAR 12/26/17 19:15 Urine pH 5.0 (5.0-7.5) 12/26/17 19:15 Ur Specific [place] 1.018 (1.002-1.030) 12/26/17 19:15 Urine Protein NEGATIVE (NEGATIVE) 12/26/17 19:15 Urine Ketones NEGATIVE (NEGATIVE) 12/26/17 19:15 Urine Blood NEGATIVE (NEGATIVE) 12/26/17 19:15 Urine Nitrate NEGATIVE (NEGATIVE) 12/26/17 19:15 Urine Bilirubin NEGATIVE (NEGATIVE) 12/26/17 19:15 Urine Urobilinogen NEGATIVE EU (0.2-1.0) 12/26/17 19:15 Ur Leukocyte Esterase NEGATIVE (NEGATIVE) 12/26/17 19:15 Urine RBC 3-5 /hpf (0-3) H 12/26/17 19:15 Urine WBC 1-3 /hpf (0-3) 12/26/17 19:15 Ur Epithelial Cells NONE SEEN /lpf (NONE-1+) 12/26/17 19:15 Urine Mucus TRACE /lpf (NONE-1+) 12/26/17 19:15 Urine Glucose NEGATIVE (NEGATIVE) 12/26/17 19:15 Assessment & Plan Assessment: 72 yo F w/ hx of Chron's requiring numerous abdominal surgeries, HTN, DVT, and chronic pain presents with abdominal pain. Plan: 1. Abdominal pain - Patient presents with pain around JAS drain site for [address] scan (per report by ED, no report available for review yet) shows enteritis vs ileus. She is followed closely by Dr. Yee and has had numerous abdominal surgeries for complications of Crohn's disease. - Await final CT read - GI PCR ordered - Maintain NPO for bowel rest - Continue TPN - Surgery consult placed, appreciate assistance 2. Crohn's disease c/b fistulas requiring numerous surgeries - Most recently admitted in September of this year for management of incarcerated ventral hernia. This was treated with an ex-lap by Dr. Yee. 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 She has been on TPN since with increasing amounts of PO intake. - Continue TPN, Vit D, multivitamins - Maintain NPO pending surgical evaluation - Wound care and dietary consults placed 3. Hx RUE DVT - Related to PICC; continue apixaban therapy. 4. HTN - Continue amlodipine 5. Chronic pain - Has weaned herself off of oxycodone. Continue home tramadol and Lyrica. 6. Anemia - Hgb 8.7 on admission, which is stable from prior values. I suspect this multifactorial from chronic disease, chronic blood loss, and likely iron/ vitamin deficiencies. - Recheck ferritin and B12 7. Abnormal LFTs - Suggestive of mild inflammation, possibly related presenting complaint. - Monitor CMP Diet - NPO, TPN Code - Full Ppx - apixaban Dispo - Admit under inpatient status as I suspect diagnosis and treatment planning will require >2 MN's.
[2017-12-27] MEDS: traMADol 50 MG TAB PO PRN ×3 (00:22→17:46)
[2017-12-27 06:06] LABS: PLATELET COUNT 335 10^3/uL (150-400)
[2017-12-27 06:19] LABS: INR 1.04 (0.83-1.16); PROTIME(PATIENT) 13.8 SEC (12.0-15.0)
--- NOTE | 2017-12-27 09:07 | ASMTLACE ---
CARLYLEE Acuity / Level of Answers: Yes Care: Did the patient have an inpatient admission? Comorbidities - select Answers: Opioid dependence all that apply / Chronic pain Other Notes: Crohn's disease; Hx of DVT; HTN # of Emergency department Answers: 3-4 visits in the last 6 months Score: 11 Date Signed: 12/27/2017 09:06 AM Electronically Signed By:Miriam Ronquillo
--- NOTE | 2017-12-27 09:57 | ASMTCMCOM ---
CM Note CM Note Notes: Chart reviewed for discharge planning purposes. Patient discharged to SNF in October then went home with [facility] and Infusion service for TPN Apparently in working with Social work she will transition to [facility] for her care after 01/24/18. Plan of care uncertain at this time. CM to follow. Plan: TBD Date Signed: 12/27/2017 09:57 AM Electronically Signed By:Amelia Ross RN
[2017-12-27] MEDS: MULTIVITAMINS 1 EACH TAB PO SCH (10:21)
[2017-12-27] MEDS: APIXABAN 5 MG TAB PO SCH ×2 (10:21→21:21)
[2017-12-27] MEDS: PREGABALIN 100 MG CAP PO SCH ×2 (10:21→21:22)
[2017-12-27] MEDS: amLODIPine BESYLATE 5 MG TAB PO SCH (10:21)
[2017-12-27] MEDS: CHOLECALCIFEROL VIT D3 1,000 UNITS TAB PO SCH (10:21)
[2017-12-27] MEDS: ACETAMINOPHEN 325 MG TAB PO PRN ×2 (10:22→17:46)
[2017-12-27] MEDS: DICYCLOMINE 10 MG CAP PO PRN (10:23)
[2017-12-27] MEDS: LORazepam 0.5 MG TAB PO PRN ×2 (10:23→21:21)
--- NOTE | 2017-12-27 10:29 | PDMN ---
Medical Necessity Medical necessity: est los>2mn for abd pain at brando site, enteritis vs ileus; admit for NPO, surgical consult, continue TPN; comorbid Crohn's disease w/ multiple surgeries for fistulas, recent abscess, HTN, hx RUE DVT, chronic pain, anemia, and abnormal LFT's; per order and H&P 12/26/17
[2017-12-27] MEDS ORDERED: ACETAMINOPHEN 325 MG TAB PO PRN (12:55)
--- NOTE | 2017-12-27 13:05 | HOSPPROG ---
Hospitalist Progress Note Assessment/Plan: 72 yo F w/ hx of Chron's requiring numerous abdominal surgeries, HTN, DVT, and chronic pain presents with abdominal pain. First encounter, chart reviewed. D/W RN at bedside. Plan: # Abdominal pain - Patient presents with pain around JAS drain site for 1 day. -CT scan shows enteritis vs ileus. -Dr. Yee to see, has had numerous abdominal surgeries for complications of Crohn's disease. - GI PCR normal - Maintain NPO for bowel rest - Continue TPN # Crohn's disease -c/b fistulas requiring numerous surgeries - Most recently admitted in September of this year for management of incarcerated ventral hernia. 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 - She has been on TPN since with increasing amounts of PO intake. - Continue TPN, Vit D, multivitamins - Maintain NPO pending surgical evaluation - Wound care and dietary consults # Hx RUE DVT - Related to PICC; continue apixaban therapy. # HTN - Continue amlodipine # Chronic pain - Has weaned herself off of oxycodone. Continue home tramadol and Lyrica. #Anemia - Hgb 8.7 on admission, which is stable from prior values. -multifactorial from chronic disease, chronic blood loss, and likely iron/ vitamin deficiencies. - ferritin and B12 normal #Abnormal LFTs - Suggestive of mild inflammation, possibly related presenting complaint. - Monitor CMP Diet - NPO, TPN Code - Full Ppx - apixaban Dispo - Admit under inpatient status as I suspect diagnosis and treatment planning will require >2 MN's. Subjective: Up in the chair. Still ahving some abd pain. Feeling well. No other issues. Objective: Vital Signs Temp Pulse Resp BP Pulse Ox 36.9 C 74 16 125/62 H 95 12/27/17 08:00 12/27/17 08:00 12/27/17 08:00 12/27/17 10:21 12/27/17 08:00 Microbiology 12/27/17 05:20 Gastrointestinal Tract Panel (PCR) - Final Stool No Organism Detected Laboratory Results 12/27/17 05:35 12/27/17 05:35 12/26/17 12/27/17 12/28/17 05:59 05:59 05:59 Intake Total 500 Output Total 1000 Balance -500 PT 13.8 SEC (12.0-15.0) 12/27/17 05:35 INR 1.04 (0.83-1.16) 12/27/17 05:35 - Physical Exam Constitutional: chronically ill appearing, uncomfortable, cachectic Eyes: PERRL, anicteric sclera, EOMI Ears, Nose, Mouth, Throat: moist mucous membranes, hearing normal, ears appear normal Cardiovascular: No JVD, No tachycardia, No edema Respiratory: no respiratory distress, no rales or rhonchi, reduced air movement Gastrointestinal: tenderness, distension, No ascites, No guarding Skin: warm, normal color, No mottled Musculoskeletal: normal joint ROM, no joint effusions, generalized weakness Neurologic: AAOx3 Psychiatric: interacting appropriately, not anxious, not encephalopathic, thought process linear ICD10 Worksheet Patient Problems: Problems Problem Status Onset Bronchitis Acute Malnutrition Acute Crohns disease Acute Intra-abdominal abscess Acute Abdominal pain, chronic, right lower quadrant Acute Crohns disease of small intestine Acute Abdominal pain Acute Acute Crohn's disease Acute Altered mental status Acute Severe sepsis Acute Abdominal pain Acute Vomiting Acute Constipation Acute Fever Acute Postoperative infection Acute Periumbilical hernia Acute
[2017-12-27] MEDS ORDERED: ALTEPLASE 2 MG VIAL IVP PRN (17:55)
[2017-12-27] MEDS: TPN 1 EA BAG IV SCH (21:22)
[2017-12-28] MEDS: oxyCODONE IR 5 MG TAB PO PRN (04:40)
[2017-12-28 04:54] LABS: INR 1.19 (0.83-1.16); PROTIME(PATIENT) 15.3 SEC (12.0-15.0)
[2017-12-28] MEDS: APIXABAN 5 MG TAB PO SCH ×2 (08:21→20:25)
[2017-12-28] MEDS: CHOLECALCIFEROL VIT D3 1,000 UNITS TAB PO SCH (08:21)
[2017-12-28] MEDS: MULTIVITAMINS 1 EACH TAB PO SCH (08:21)
[2017-12-28] MEDS: PREGABALIN 100 MG CAP PO SCH ×2 (08:21→20:25)
[2017-12-28] MEDS: amLODIPine BESYLATE 5 MG TAB PO SCH (08:30)
--- NOTE | 2017-12-28 08:31 | HOSPPROG ---
Hospitalist Progress Note Assessment/Plan: 72 yo F w/ hx of Crohn's requiring numerous abdominal surgeries, HTN, DVT, and chronic pain presents with abdominal pain. First encounter, chart reviewed. D/W Dr Yee plan of care. # Abdominal pain -CT shows possible ileus vs enteritis -reviewed her care w Dr Yee and Dr Yee will talk w IR about the possibility of relocating drain in abd (can be done as an OP) -GI PCR stable # Crohn's disease -had an abscess drained in September r/t and enterocutaneous fistula - Most recently admitted in September of this year for management of incarcerated ventral hernia. - She has been on TPN since with increasing amounts of PO intake. - Continue TPN, Vit D, multivitamins -on regular diet # Hx RUE DVT - Related to PICC; continue apixaban therapy. -orders for PICC to be replaced, has had problems in the OP setting of not working # HTN - Continue amlodipine # Chronic pain - Has weaned herself off of oxycodone. Continue home tramadol and Lyrica. #Anemia -multifactorial from chronic disease, chronic blood loss, and likely iron/ vitamin deficiencies. - ferritin and B12 normal #Abnormal LFTs - improving #Plan: replace PICC and hopefully dc later today or tomorrow morning with close f/u with Dr Yee. Subjective: Renetta said her pain is well managed on the Lyrica. Objective: Vital Signs Temp Pulse Resp BP Pulse Ox 37.1 C 75 16 94/49 L 94 12/28/17 07:47 12/28/17 07:47 12/28/17 07:47 12/28/17 07:47 12/28/17 07:47 Microbiology 12/27/17 05:20 Gastrointestinal Tract Panel (PCR) - Final Stool No Organism Detected Laboratory Results 12/28/17 04:35 12/28/17 04:35 12/27/17 12/28/17 12/29/17 05:59 05:59 05:59 Intake Total 500 1195 Output Total 1000 5 Balance -500 1190 PT 15.3 SEC (12.0-15.0) H 12/28/17 04:35 INR 1.19 (0.83-1.16) H 12/28/17 04:35 - Physical Exam Constitutional: not in pain, chronically ill appearing, uncomfortable Eyes: PERRL Ears, Nose, Mouth, Throat: hearing normal Cardiovascular: regular rate and rhythym Respiratory: no respiratory distress Gastrointestinal: normoactive bowel sounds, other (drain in with some purulent secretions, reddened around the insertion site (on left side of abd)) Skin: warm Musculoskeletal: full muscle strength Neurologic: AAOx3 Psychiatric: interacting appropriately, anxious ICD10 Worksheet Patient Problems: Problems Problem Status Onset Abdominal pain Acute Abdominal pain Acute Abdominal pain, chronic, right lower quadrant Acute Acute Crohn's disease Acute Altered mental status Acute Bronchitis Acute Constipation Acute Crohns disease Acute Crohns disease of small intestine Acute Fever Acute Intra-abdominal abscess Acute Malnutrition Acute Periumbilical hernia Acute Postoperative infection Acute Severe sepsis Acute Vomiting Acute
[2017-12-28] MEDS: DICYCLOMINE 10 MG CAP PO PRN (13:25)
[2017-12-28] MEDS: LORazepam 0.5 MG TAB PO PRN ×2 (13:25→20:25)
[2017-12-28] MEDS: ACETAMINOPHEN 325 MG TAB PO PRN (13:25)
--- NOTE | 2017-12-28 17:59 | SOAPPROG ---
SOANTONELLA Progress Note Assessment/Plan: Assessment: Farnaz is well known to me. She is s/p multiple abdominal surgeries and develops different complications after most surgeries. We are currently treating her enterocutaneous fistula with a drain and TPN. She has just started with a regular diet and we are watching the drain output. If drain output continues to be <30 cc/day then we will plan on decreasing TPN. Hopefully fistula will heal over time I get called from home health about 1-2x per week regarding her PICC. It will infuse but periodically not draw back for labs. She was scheduled for a PICC exchanged prior to this admission. Although it seems to be working now, I think it is a good idea to exchange it Her CT scan seems reassuring. Her abdominal distension is improved and pain is better after large BM. She is forge tender around the drain site. ? Enteritis. No obvious source on GI panel Will follow as long as inpatient. I see her every 1-2 weeks outpatient. She has [facility] homecare S: Feeling better today. Accepting that she may have have drain program development specialist O: Sitting in bed, appears well Abdomen soft JAS with scant purulent fluid. Plan: 12/28/17 17:39 Objective: Vital Signs Temp Pulse Resp BP Pulse Ox 36.9 C 73 16 101/62 96 12/28/17 15:18 12/28/17 15:18 12/28/17 15:18 12/28/17 15:18 12/28/17 15:18 Laboratory Results 12/28/17 04:35 12/28/17 04:35 12/27/17 12/28/17 12/29/17 05:59 05:59 05:59 Intake Total 500 1195 Output Total 1000 5 Balance -500 1190 PT 15.3 SEC (12.0-15.0) H 12/28/17 04:35 INR 1.19 (0.83-1.16) H 12/28/17 04:35 ICD10 Worksheet Patient Problems: Problems Problem Status Onset Abdominal pain Acute Abdominal pain Acute Abdominal pain, chronic, right lower quadrant Acute Acute Crohn's disease Acute Altered mental status Acute Bronchitis Acute Constipation Acute Crohns disease Acute Crohns disease of small intestine Acute Fever Acute Intra-abdominal abscess Acute Malnutrition Acute Periumbilical hernia Acute Postoperative infection Acute Severe sepsis Acute Vomiting Acute
[2017-12-28] MEDS: TPN 1 EA BAG IV SCH (20:51)
[2017-12-29 04:48] LABS: INR 1.24 (0.83-1.16); PROTIME(PATIENT) 15.8 SEC (12.0-15.0)
[2017-12-29] MEDS: oxyCODONE IR 5 MG TAB PO PRN (05:54)
[2017-12-29 07:50] VITALS: BP 110/69
--- NOTE | 2017-12-29 08:23 | GCON ---
[f rep st] CONSULTATION DATE OF CONSULTATION: 12/27/2017 CHIEF COMPLAINT: Abdominal pain. HISTORY OF PRESENT ILLNESS: Farnaz is a 72-year-old woman well known to me. She is status post multi ple abdominal surgeries including partial colectomy, small bowel resection, revision with an ostomy, ostomy takedown, exploratory laparotomy, lysis of adhesions, ventral hernia repair. Her last surgery was October 04, 2017, where she had the ventral hernia repair. She developed an enterocutaneous fistu la. This is been drained, and she has been on TPN. We have been trying to advance her diet. Someti mes when we advance it, she has more output from the drain, and so she remains on full-strength TPN. Most recently, she has been having burning around the JAS site. Her PICC periodically malfunctions, and we sometimes have to get peripheral lab draws. We have been trying to schedule PICC to be exchan ged. She presented to the hospital due to increasing abdominal pain and distention. CT scan was obt ained on December 26, which showed dilated fluid-filled loops of large and small bowel with no transitio n point. The drainage tube is in position. PAST MEDICAL HISTORY: Crohn disease, chronic pain, depression, pulmonary nodule. PAST SURGICAL HISTORY: Breast augmentation bilateral, cervical diskectomy, laminectomy, multiple abd ominal surgeries. ALLERGIES: Include azathioprine, budesonide, ertapenem, fentanyl, gabapentin, morphine, penicillins, Pentasa, Remicade, sulfa, tramadol. FAMILY MEDICAL HISTORY: Lung cancer and heart disease. Her mother also had Crohn disease. SOCIAL HISTORY: She does not use tobacco products. She is . REVIEW OF SYSTEMS: Significant for pain, fatigue, depression. Otherwise, 10-point review of systems negative. PHYSICAL EXAM: GENERAL: Pleasant well-groomed woman lying on hospital bed. HEENT: Normocephalic. No gross hearing deficits. Mucous membranes moist. Pupils equal and round. No scleral icterus. L JOEY: PICC line in place. LUNGS: Clear to auscultation bilaterally. No increased work of breathin g. CARDIAC: Regular rate. ABDOMEN: Minimal distention. The drain is with about 10 cc of purulent fluid. Her abdomen is soft. Bowel sounds are present. She is tender around the drain site. MUSCU LOSKELETAL: 5/5 strength. NEURO: Grossly intact. SKIN: Warm and dry. No erythema around drain s ite. IMPRESSION AND PLAN: A 72-year-old woman with Crohn disease and multiple abdominal surgeries who pre sented with abdominal pain. To me, it looks like she has an enteritis. The gastrointestinal panel i s negative. I imagine this will resolve with time. As she is feeling better, we can advance her t again. We will watch her drain output. My plan is that if her drain output continues to be less t dixon 30 cc per day, then we will decrease her TPN by half and see if her weight is stable. She has be en gaining weight on TPN and now weighs 93 pounds. I will follow intermittently throughout her cours e. I do recommend her PICC to be exchanged as I receive phone calls about once per week for the past 3 weeks about it malfunctioning. We have had this scheduled several times as an outpatient, and whe n she is on the way in, it will withdraw blood again. I think this is chronic in nature. She has martinez d it for quite some time. /[id number]/MODL
--- NOTE | 2017-12-29 09:46 | HOSPPROG ---
Hospitalist Progress Note Assessment/Plan: 72 yo F w/ hx of Crohn's requiring numerous abdominal surgeries, HTN, DVT, and chronic pain presents with abdominal pain. # Abdominal pain-resolved, much better today -CT shows possible ileus vs enteritis -reviewed her care w Dr Yee and Dr Yee will talk w IR about the possibility of relocating drain in abd (can be done as an OP) -GI PCR stable # Crohn's disease -had an abscess drained in September r/t and enterocutaneous fistula - Most recently admitted in September of this year for management of incarcerated ventral hernia. - She has been on TPN since with increasing amounts of PO intake. - Continue TPN, Vit D, multivitamins - on regular diet # Hx RUE DVT - PICC replaced # HTN - Continue amlodipine # Chronic pain - Has weaned herself off of oxycodone. Continue home tramadol and Lyrica. #Anemia -multifactorial from chronic disease, chronic blood loss, and likely iron/ vitamin deficiencies. - ferritin and B12 normal #Abnormal LFTs - improving #Plan: dc home w home care Subjective: Farnaz is feeling fine today. Objective: Vital Signs Temp Pulse Resp BP Pulse Ox 37.1 C 88 16 110/69 97 12/29/17 07:48 12/29/17 07:48 12/29/17 07:48 12/29/17 07:48 12/29/17 07:48 Laboratory Results 12/29/17 04:25 12/29/17 04:25 12/28/17 12/29/17 12/30/17 05:59 05:59 05:59 Intake Total 1195 1147 Output Total 5 10 Balance 1190 1137 PT 15.8 SEC (12.0-15.0) H 12/29/17 04:25 INR 1.24 (0.83-1.16) H 12/29/17 04:25 - Physical Exam Constitutional: cachectic Eyes: PERRL Ears, Nose, Mouth, Throat: hearing normal Respiratory: no respiratory distress Gastrointestinal: normoactive bowel sounds, other (brando drain w minimal output, purulent) Skin: warm, other (skin slightly reddened and tender around the drain on abdomen ) Musculoskeletal: full muscle strength Neurologic: AAOx3 Psychiatric: interacting appropriately ICD10 Worksheet Patient Problems: Problems Problem Status Onset Abdominal pain Acute Abdominal pain Acute Abdominal pain, chronic, right lower quadrant Acute Acute Crohn's disease Acute Altered mental status Acute Bronchitis Acute Constipation Acute Crohns disease Acute Crohns disease of small intestine Acute Fever Acute Intra-abdominal abscess Acute Malnutrition Acute Periumbilical hernia Acute Postoperative infection Acute Severe sepsis Acute Vomiting Acute
--- NOTE | 2017-12-29 09:56 | PDIAF ---
- Diagnosis Diagnosis: abdominal pain, enteritis, enterocutaneous fistula Code Status: Full Code - Medication Management Discharge Medications: Medications to Continue on Transfer Dicyclomine [Bentyl 10 MG (*)] 10 mg PO BID 12/06/16 [Last Taken 12/26/17 17:00] LORazepam [Ativan (*)] 0.5 mg PO BID 12/06/16 [Last Taken 12/26/17 17:00] Cholecalciferol Vit D3 [Vitamin D3 (*)] 1,000 units PO DAILY 09/06/17 [Last Taken 12/26/17 08:00] Multivitamins [Multivitamin (*)] 1 tab PO DAILY 09/06/17 [Last Taken 12/26/17 08 :00] Acetaminophen [Tylenol 325mg (*)] 650 mg PO Q6 PRN tab 09/15/17 [Last Taken 08/14 14:00] TPN [Hyperalimentation] 1 ea IV DAILY21 bag 10/26/17 [Last Taken 12/26/17] Apixaban [Eliquis] 5 mg PO BID #60 tab 10/27/17 [Last Taken 12/26/17 17:00] amLODIPine BESYLATE [Norvasc 5 mg (*)] 5 mg PO DAILY #30 tab 10/27/17 [Last Taken 12/26/17 08:00] Pregabalin [Lyrica 100mg (*)] 200 mg PO BID 12/26/17 [Last Taken 12/26/17 17:00] traMADol [Ultram 50 mg (*)] 50 mg PO TID PRN 12/26/17 [Last Taken 12/26/17 14:00 ] Pharmacy To DoseTPN 1 ea MISC AD bag 12/29/17 [Last Taken Unknown] Discharge Medications: Refer to the Discharge Home Medication list for PRN reason. - Orders Services needed: Home Care, Registered Nurse Home Care Face to Face: I certify that this patient was under my care and that I had the required [id number] encounter meeting the encounter requirements on the discharge day. My findings support the fact that the patient is homebound as defined in Home Care Face to Face Continued: CMS Chapter 7 Medicare Benefits Manual 30.1.1 , The condition of the patient is such that there exists a normal inability to leave home and consequently, leaving home would require a considerable and taxing effort. Isolation Type: None Diet Recommendation: no restrictions on diet Additional Instructions: follow up with Dr Yee next week labs should be done every 3 days if you develop fever, chills, worsening abdominal pain return to the ER liver enzymes were elevated but improved, will have these rechecked this next week. Follow up with your primary care provider. - Labs/Radiology BMP Date: 12/31/17 (q 3 days while on TPN) LFT Date: 12/31/17 Other Lab Name, Date and Time: magnesium, check every 3 days - Follow Up Care Current Providers and Referrals: Kassy Yee MD [Medical Doctor] - Cherelle Welsh MD [Primary Care Provider] - As per Instructions
--- NOTE | 2017-12-29 10:01 | ASMTCMCOM ---
CM Note CM Note Notes: Spoke w/LOAD TESTER, pt is discharging home today. CM notified [facility] and [facility], pt still has TPN at home, [facility] RN will call pt to coordinate visit tonight. Discussed plan with pt, CM will call for Medicaid transport when ready. DC Plan: Homecare([facility]/RN) + [facility]/TPN Date Signed: 12/29/2017 09:59 AM Electronically Signed By:Martha Santacruz RN
--- NOTE | 2017-12-29 10:23 | GDS ---
[f rep st] DISCHARGE SUMMARY DISCHARGE DIAGNOSES: 1. Abdominal pain, much relieved, most likely secondary to enteritis. 2. Crohn disease. 3. History of right upper extremity deep venous thrombosis. 4. Hypertension. 5. Chronic pain. 6. Anemia. 7. Abnormal liver function tests. CONSULTATION: Dr. Kassy Yee Briefly, Renetta Russell is a very sweet 72-year-old female with the history of Crohn disease. She martinez s had multiple abdominal surgeries including a partial colectomy, small-bowel resection, revision wit h ostomy and ostomy takedown, exploratory laparotomy, lysis of adhesions and ventral hernia repair. She had surgery on October 04 where she had a ventral hernia repair and developed an enterocutaneous fistula. This was drained. She has been on TPN. She came to the emergency room on this admission b ecause she had abdominal pain. Her CT scan showed dilated fluid filled loops of large and small sharron l with no transition point. She has a drainage tube in place and this was noted to be in position. She has done well over her stay. Her pain is much resolved. She is starting to increase her oral in take. She will continue TPN and further follow up with Dr. Yee in the outpatient setting. HOSPITAL COURSE: 1. Abdominal pain. This is much better. Suspect this is secondary to enteritis. A GI PCR was [facility][1] and was negative. 2. Crohn disease. She had an abscess drained in September related to an enterocutaneous fistula. She i s doing well. She will continue TPN. 3. History of right upper extremity DVT. She is on treatment for this. 4. Hypertension on amlodipine. 5. Chronic pain. She weaned herself off oxycodone. She takes tramadol and Lyrica. 6. Anemia. This is multifactorial from chronic disease and chronic blood loss. 7. Abnormal LFTs. These are improving. We will have these rechecked next week. DISCHARGE CONDITION: Stable. Blood pressure is 110/69, heart rate is 88, respiratory rate is 16, O2 sats on room air 97%, temperature is 37.1 Celsius. MEDICATIONS AT DISCHARGE: Please see the EMR. DISCHARGE INSTRUCTIONS: 1. To follow up with Dr. Yee next week. 2. If she develops fever, chills or worsening abdominal pain, to return to the ER. Greater than 30 minutes discharging and coordinating the patient's care. /[id number]/MODL
[2017-12-29] MEDS: amLODIPine BESYLATE 5 MG TAB PO SCH (10:25)
[2017-12-29] MEDS: APIXABAN 5 MG TAB PO SCH (10:25)
[2017-12-29] MEDS: CHOLECALCIFEROL VIT D3 1,000 UNITS TAB PO SCH (10:25)
[2017-12-29] MEDS: PREGABALIN 100 MG CAP PO SCH (10:25)
[2017-12-29] MEDS: LORazepam 0.5 MG TAB PO PRN (10:25)
[2017-12-29] MEDS: MULTIVITAMINS 1 EACH TAB PO SCH (10:25)
--- NOTE | 2017-12-29 12:12 | ASMTDCNOTE ---
Case Management Discharge Discharge Order Complete? Answers: Yes Patient to Obtain Answers: Independently Medications Transportation Arranged Answers: Other Notes: Medicaid Transport Transport will Pick (Date 12/29/2017 04:00 PM & Time) Faxed Final Orders Answers: Yes Discharge Comments Notes: D/w RN, final orders faxed. Sarah at [facility] and Carrol at [facility] notified, LUCAS Barkley to meet pt at her house at 5pm to connect TPN. CM arranged transport through Medicaid. Date Signed: 12/29/2017 12:11 PM Electronically Signed By:Martha Santacruz RN
--- NOTE | 2017-12-29 17:26 | ASDISCHSUM ---
Discharge Information Plan Status:IV ABX/Infusion Medically Cleared to Leave: Discharge Date:12/29/2017 04:03 PM D/C Disposition:Home Health Service ADT D/C Disposition:Home Health Service Projected Discharge Date:12/29/2017 11:00 AM Transportation at D/C:Medicaid Transportation Discharge Delay Reason: Follow-Up Date:12/29/2017 11:00 AM Discharge Slot: Final Diagnosis: Placement Information Referral Type:*Home Health Care Services Referral ID:[id number] Provider Name:[facility] [address] Address 2: City:[place] Selection Factors: State:[place] Referral Type:Home Infusion Referral ID:[id number] Provider Name:[facility] [place] ([facility]) Address 1:[address] Address 2: City:[place] Selection Factors: State:[place] Patient Contact Information Contact Name:JOAQUINA Relationship:Daughter Address:[address] [place] Work Phone: City:[place] Alternate Phone: [facility]/Zip Code:[place] [address] Email: Financial Information Financial Class:Medicare Primary Plan Desc:MEDICARE INPATIENT Primary Plan Number:[id number] Secondary Plan Desc[place] Secondary Plan Number:[id number] Assessment Information LACE LACE Acuity / Level of Answers: Yes Care: Did the patient have an inpatient admission? Comorbidities - select Answers: Opioid dependence all that apply / Chronic pain Other Notes: Crohn's disease; Hx of DVT; HTN # of Emergency department Answers: 3-4 visits in the last 6 months Score: 11 Date Signed: 12/27/2017 09:06 AM Electronically Signed By:Miriam Ronquillo [facility] Progress Note CM Note CM Note Notes: Chart reviewed for discharge planning purposes. Patient discharged to SNF in October then went home with [facility] and Infusion service for TPN Apparently in working with Social work she will transition to [facility] for her care after 01/24/18. Plan of care uncertain at this time. CM to follow. Plan: TBD Date Signed: 12/27/2017 09:57 AM Electronically Signed By:Amelia Ross RN [facility] Progress Note CM Note CM Note Notes: Spoke w/BUSINESS WRITER, pt is discharging home today. CM notified [facility] and [facility], pt still has TPN at home, [facility] RN will call pt to coordinate visit tonaudrey. Discussed plan with pt, CM will call for Medicaid transport when ready. DC Plan: Homecare([facility]/RN) + [facility]/TPN Date Signed: 12/29/2017 09:59 AM Electronically Signed By:Martha Santacruz RN Case Management Discharge Plan Note Case Management Discharge Discharge Order Complete? Answers: Yes Patient to Obtain Answers: Independently Medications Transportation Arranged Answers: Other Notes: Medicaid Transport Transport will Pick (Date 12/29/2017 04:00 PM & Time) Faxed Final Orders Answers: Yes Discharge Comments Notes: D/w RN, final orders faxed. Sarah at [facility] and Carrol at [facility] notified, LUCAS Barkley to meet pt at her house at 5pm to connect TPN. CM arranged transport through Medicaid. Date Signed: 12/29/2017 12:11 PM Electronically Signed By:Martha Santacruz RN Intervention Information Intervention Type:*IM-Signed Date of Service:12/29/2017 12:24 PM Patient Type:Inpatient Staff Member:Miriam Ronquillo Hours: Discipline: Severity: Comment:
--- NOTE | 2018-01-02 13:33 | PQFORM ---
PHYSICIAN QUERY FORM Needs Your Response This query form is being sent to you to assure this patient record is coded properly. Please respond to the question below: PROGRAM DIRECTOR/MUSIC DIRECTOR QUESTION: Abi, The nursing documentation on this patient shows a BMI of 18.16 on admission, a history of Crohn's and she was receiving TPN prior to admission. Can one of the following diagnoses be added to the discharge summary? ____x____ Protein Calorie Malnutrition Severe protein calorie malnutrition Underweight Other Thank you for clarifying, CLAUDIA Garza HIM Coding INSTRUCTIONS FOR RESPONSE: Answer question by clicking on the "Edit Document" button. Move cursor to area below the stars. When complete, hit "Save." Click on the "Sign" button, then click "Sign" again. Type in your PIN and hit "Enter." MTDD
== END 2017-12-29 16:03 | disposition home health service (06) | DRG 386 ==
LOC: OBSVTOIN 20:19 → F3E 21:10
PROVIDERS: ADMIT Surgery; ATTEND Family Medicine
PROC: 3E0 Administration, Physiological Systems and Anatomical Regions, Introduction (ICD-10-PCS; principal; 2017-12-26)
PROC: 02HV33Z Insertion of Infusion Device into Superior Vena Cava, Percutaneous Approach (ICD-10-PCS; 2017-12-29)
DX: K50.90 Crohn's disease, unspecified, without complications (principal); I10 Essential (primary) hypertension; E46 Unspecified protein-calorie malnutrition; Z68.1 Body mass index [BMI] 19.9 or less, adult; G89.29 Other chronic pain; D64.9 Anemia, unspecified; R94.5 Abnormal results of liver function studies; F32.9 Major depressive disorder, single episode, unspecified; Z86.718 Personal history of other venous thrombosis and embolism
CPT/HCPCS: 82607-90; 96374; 97165-GO; 97530-GO; 97535-GO; G8987-GO-CI; G8987-GO-CJ; G8988-GO-CI; G8989-GO-CI; J1170; J1642; J2997; Q9967

== ENCOUNTER 2018-04-12 13:25 | Emergency (ER) | payer OTHER, MEDICAID ==
--- NOTE | 2018-04-12 13:51 | EDPHY ---
H & P Time Seen by Provider: 04/12/18 13:37 HPI/ROS: Chief complaint. Abdominal pain HPI. Patient is a 72-year-old female presents with abdominal pain. She has long history of poorly controlled Crohn's disease and tells me she has had 13 abdominal surgeries. Most recent surgery was a ventral hernia repair in September 2017. Benito-Durbin drain had been left in place. She was admitted on January 13 for an abdominal wall abscess and had an abscess drained by interventional radiology. Patient has increasing pain swelling and distension upper abdomen over the past 2 days. Fever to 99.6 degrees. No vomiting. No bowel movement or passing gas since yesterday. No urinary symptoms. No chest discomfort or trouble breathing. ROS 10 systems were reviewed and negative with the exception of the elements mentioned in the history of present illness Past Medical/Surgical History: Crohn's disease, small-bowel obstruction with bowel resection, C-spine fusion tubal ligation, ostomy with reversal of ostomy Social History: , nonsmoker, no alcohol Smoking Status: Former smoker Physical Exam: General Appearance: Alert well-developed female mild distress vital signs are stable. Eyes: Pupils equal and round no pallor or injection. ENT, Mouth: Mucous membranes are moist. Respiratory: There are no retractions, lungs are clear to auscultation. Cardiovascular: Regular rate and rhythm. Gastrointestinal: Abdomen is tender with mild distension. Decreased bowel sounds. Multiple surgical scars present. There is a small area of drainage in the left abdomen draining yellowish green fluid. Neurological: Awake and alert, sensory and motor exams grossly normal. Skin: Warm and dry, no rashes. Musculoskeletal: Neck is supple nontender. Extremities symmetrical, full range of motion. Psychiatric: Patient is oriented X 3, there is no agitation. Constitutional: Initial Vital Signs Temperature (C) 37.2 C 04/12/18 13:31 Heart Rate 78 04/12/18 13:31 Respiratory Rate 16 04/12/18 13:31 Blood Pressure 104/83 H 04/12/18 13:31 O2 Sat (%) 97 04/12/18 13:31 O2 Delivery Mode Room Air Allergies/Adverse Reactions: Penicillins Allergy (Severe, Verified 01/13/18 18:59) SEIZURES Sulfa (Sulfonamide Antibiotics) Allergy (Severe, Verified 01/13/18 18:59) NAUSEA azathioprine Allergy (Unknown, Verified 01/13/18 18:59) Rash budesonide Allergy (Unknown, Verified 01/13/18 18:59) Rash cefuroxime Allergy (Unknown, Verified 01/13/18 18:59) Other-Enter Comments ertapenem Allergy (Unknown, Verified 01/13/18 18:59) Other-Enter Comments fentanyl Allergy (Unknown, Verified 01/13/18 18:59) MEMORY LOSS gabapentin Allergy (Unknown, Verified 01/13/18 18:59) Rash infliximab Allergy (Unknown, Verified 01/13/18 18:59) Itching mesalamine Allergy (Unknown, Verified 01/13/18 18:59) Rash morphine Allergy (Unknown, Verified 01/13/18 18:59) PT BECOMES "MEAN" azathioprine sodium [From Imuran] Allergy (Verified 01/13/18 18:59) Rash Home Medications: Medication Instructions Recorded LYRICA 04/12/18 Prozac 10 MG (*) 04/12/18 Medical Decision Making - Diagnostics Imaging Results: Imaging Impressions Abdomen CT 04/12/18 14:03 Impression: 1. No acute abdominopelvic process. 2. Stable collection of fluid in the right anterior peritoneum measuring 7.3 x 1.6 cm with internal foci of air. It is unclear if this represents a chronic abscess versus seroma versus hematoma. Internal foci of air is suspicious for underlying fistulization to bowel and it is adjacent to where a prior drain was placed on the left. 3. Fluid within the bowel, as can be seen with dysmotility disorder. 4. A right lower lobe nodule measuring 1.2 cm again seen, decreased in size since prior examination but mildly increased since 2013. 5. Similar extra and intrahepatic ductal dilatation for which correlation with LFTs is recommended. Findings and recommendations discussed with GWENDOLYN PHILLIPS at 1551 hour, 2017. CT abdomen pelvis with IV contrast reviewed by me and discussed with Radiology shows no acute process. There is a stable collection of fluid in the right anterior peritoneum that has been unchanged since December. Clinically patient clearly has a fistula that is draining on the left anterior abdomen. Mild extra and intrahepatic ductal dilatation Procedures: IV normal saline. Dilaudid for pain. Zofran for nausea. Sepsis workup ED Course/Re-evaluation: I consulted discussed the case with Dr. Yee who feels that there is no acute need for surgical intervention Re-evaluation of the patient at 4:10 p.m.. Patient and I discussed imaging and lab results. Patient would prefer to go home. She is offered admission. We discussed treatment plan including criteria for return and importance of follow-up and further evaluation. She expresses understanding and agreement Differential Diagnosis: I considered small-bowel obstruction, other intra-abdominal processes including abscess. There are no acute findings - Data Points Laboratory Results: Laboratory Results 04/12/18 14:05 04/12/18 14:05 04/12/18 04/12/18 04/12/18 15:40 14:35 14:05 WBC RBC Hgb Hct MCV MCH MCHC RDW Plt Count MPV Neut % (Auto) Lymph % (Auto) [place] % (Auto) Eos % (Auto) Baso % (Auto) Nucleat RBC Rel Count Absolute Neuts (auto) Absolute Lymphs (auto) Absolute Monos (auto) Absolute Eos (auto) Absolute Basos (auto) Absolute Nucleated RBC Immature Gran % Immature Gran # PT INR APTT VBG Lactic Acid 1.5 mmol/L mmol/L (0.7-2.1) Sodium 138 mEq/L mEq/L (135-145) Potassium 3.5 mEq/L mEq/L (3.3-5.0) Chloride 101 mEq/L mEq/L (97-110) Carbon Dioxide 25 mEq/l mEq/l (22-31) Anion Gap 12 mEq/L mEq/L (6-14) BUN 14 mg/dL mg/dL (7-23) Creatinine 0.7 mg/dL mg/dL (0.6-1.0) Estimated GFR > 60 Glucose 76 mg/dL mg/dL (70-100) Calcium 9.8 mg/dL mg/dL (8.5-10.4) Total Bilirubin 0.4 mg/dL mg/dL (0.1-1.4) Conjugated Bilirubin 0.2 mg/dL mg/dL (0.0-0.5) Unconjugated Bilirubin 0.2 mg/dL mg/dL (0.0-1.1) AST 20 IU/L IU/L (14-46) ALT 27 IU/L IU/L (9-52) Alkaline Phosphatase 86 IU/L IU/L (38-126) Total Protein 7.0 g/dL g/dL (6.3-8.2) Albumin 4.1 g/dL g/dL (3.5-5.0) Lipase 82 IU/L IU/L (23-300) Urine Color PALE YELLOW Urine Appearance CLEAR Urine pH 5.0 (5.0-7.5) Ur Specific Pound 1.029 (1.002-1.030) Urine Protein NEGATIVE (NEGATIVE) Urine Ketones NEGATIVE (NEGATIVE) Urine Blood NEGATIVE (NEGATIVE) Urine Nitrate NEGATIVE (NEGATIVE) Urine Bilirubin NEGATIVE (NEGATIVE) Urine Urobilinogen NEGATIVE EU EU (0.2-1.0) Ur Leukocyte Esterase NEGATIVE (NEGATIVE) Urine RBC 1-3 /hpf /hpf (0-3) Urine WBC 1-3 /hpf /hpf (0-3) Ur Epithelial Cells TRACE /lpf /lpf (NONE-1+) Urine Mucus TRACE /lpf /lpf (NONE-1+) Urine Glucose NEGATIVE (NEGATIVE) 04/12/18 04/12/18 14:05 14:05 WBC 7.65 10^3/uL 10^3/uL (3.80-9.50) RBC 4.67 10^6/uL 10^6/uL (4.18-5.33) Hgb 11.3 g/dL L g/dL (12.6-16.3) Hct 35.5 % L % (38.0-47.0) MCV 76.0 fL L fL (81.5-99.8) MCH 24.2 pg L pg (27.9-34.1) MCHC 31.8 g/dL L g/dL (32.4-36.7) RDW 20.4 % H % (11.5-15.2) Plt Count 408 10^3/uL H 10^3/uL (150-400) MPV 9.4 fL fL (8.7-11.7) Neut % (Auto) 68.6 % % (39.3-74.2) Lymph % (Auto) 18.6 % % (15.0-45.0) [place] % (Auto) 9.3 % % (4.5-13.0) Eos % (Auto) 2.6 % % (0.6-7.6) Baso % (Auto) 0.8 % % (0.3-1.7) Nucleat RBC Rel Count 0.0 % % (0.0-0.2) Absolute Neuts (auto) 5.25 10^3/uL 10^3/uL (1.70-6.50) Absolute Lymphs (auto) 1.42 10^3/uL 10^3/uL (1.00-3.00) Absolute Monos (auto) 0.71 10^3/uL 10^3/uL (0.30-0.80) Absolute Eos (auto) 0.20 10^3/uL 10^3/uL (0.03-0.40) Absolute Basos (auto) 0.06 10^3/uL 10^3/uL (0.02-0.10) Absolute Nucleated RBC 0.00 10^3/uL 10^3/uL (0-0.01) Immature Gran % 0.1 % % (0.0-1.1) Immature Gran # 0.01 10^3/uL 10^3/uL (0.00-0.10) PT 13.8 SEC SEC (12.0-15.0) INR 1.04 (0.83-1.16) APTT 34.7 SEC SEC (23.0-38.0) VBG Lactic Acid Sodium Potassium Chloride Carbon Dioxide Anion Gap BUN Creatinine Estimated GFR Glucose Calcium Total Bilirubin Conjugated Bilirubin Unconjugated Bilirubin AST ALT Alkaline Phosphatase Total Protein Albumin Lipase Urine Color Urine Appearance Urine pH Ur Specific Pound Urine Protein Urine Ketones Urine Blood Urine Nitrate Urine Bilirubin Urine Urobilinogen Ur Leukocyte Esterase Urine RBC Urine WBC Ur Epithelial Cells Urine Mucus Urine Glucose Medications Given: Discontinued Medications Hydromorphone HCl (Dilaudid) 0.25 mg IVP EDNOW ONE Stop: 04/12/18 14:04 Last Admin: 04/12/18 14:09 Dose: 0.25 mg Sodium Chloride (Ns) 1,000 mls @ 0 mls/hr IV EDNOW ONE; Wide Open PRN Reason: Protocol Stop: 04/12/18 14:04 Last Admin: 04/12/18 14:08 Dose: 1,000 mls Ondansetron HCl (Zofran) 4 mg IVP EDNOW ONE Stop: 04/12/18 14:04 Last Admin: 04/12/18 14:08 Dose: 4 mg Departure - Departure Disposition: Home, Routine, Self-Care Clinical Impression: Abdominal pain Qualifiers: Abdominal location: periumbilical Qualified Code(s): R10.33 - Periumbilical pain Condition: Good Instructions: Abdominal Pain (ED) Additional Instructions: Continue regular medications. Return for worsening symptoms. Re-evaluation by Dr. Winter in 1-2 days for continuing symptoms Referrals: Yanet Winter MD [Primary Care Provider] - 2-3 days, if not improved
[2018-04-12] MEDS ORDERED: NS 1,000 ML IV ONE (14:03)
[2018-04-12] MEDS ORDERED: ONDANSETRON 4 MG/2 ML VIAL IVP ONE (14:03)
[2018-04-12] MEDS ORDERED: HYDROmorphONE/DILAUDID 2 MG/ML INJ IVP ONE (14:03)
[2018-04-12 14:20] LABS: PLATELET COUNT 408 10^3/uL (150-400)
[2018-04-12 14:29] LABS: INR 1.04 (0.83-1.16); PROTIME(PATIENT) 13.8 SEC (12.0-15.0)
[2018-04-12] MEDS ORDERED: IOPAMIDOL (ISOVUE-300) 100 ML BTL ONE (14:45)
[2018-04-12 16:07] VITALS: BP 120/74
--- NOTE | 2018-04-12 18:26 | ASMTCMCOM ---
CM Note CM Note Notes: Pt presented to the ED through triage for abdominal pain. Refer to ED Provider Report for additional info re: PMH/PSH. CM spoke w/pt. Pt is still currently enrolled w/[facility] and was actually at her appt when they recommended she come to the ED due to abdominal distension. Spoke w/Noemi Valiente NP at [facility] and discussed pt's discharge plan. Pt to follow up w/their team. Pt states she is no longer taking narcotics for pain management and only take Lyrica and Prozac. Pt provided Medicaid [employer] (CONF # [id number]) ride home to an apartment in [place] that she shares with a friend, Rosy ([phone]). CM available for further assistance if needed. Date Signed: 04/12/2018 06:24 PM Electronically Signed By:Shruthi Chambers RN
== END 2018-04-12 16:50 | disposition home or self-care (01) ==
DX: R10.33 Periumbilical pain (principal); K83.8 Other specified diseases of biliary tract; K50.90 Crohn's disease, unspecified, without complications; Z90.49 Acquired absence of other specified parts of digestive tract
CPT/HCPCS: 74177; 96374; 96375; 99285; J1170; J2405; Q9967

== ENCOUNTER → 2018-04-26 | Outpatient (CLI) | payer OTHER, MEDICAID | LOC: CIMAGING 13:55 | PROVIDERS: ATTEND Internal Medicine Geriatric Medicine | DX: Z12.31 Encounter for screening mammogram for malignant neoplasm of breast (principal) ==

== ENCOUNTER 2018-06-07 18:20 | Emergency (ER) | payer OTHER ==
--- NOTE | 2018-06-07 18:28 | EDPHY ---
H & P Time Seen by Provider: 06/07/18 18:27 HPI/ROS: CHIEF COMPLAINT: Increasing abdominal drainage HISTORY OF PRESENT ILLNESS: The patient has a history of Crohn's disease complicated by multiple intra-abdominal abscesses, multiple surgeries and multiple attempted drainages. She presents to the ED today with a complaint of increasing abdominal drainage from her chronically draining abdominal wound. The patient is typically followed by Dr. Yee. She denies fever. She denies any vomiting or hematemesis. The patient denies any acute increase in pain. REVIEW OF SYSTEMS: A comprehensive 10 point review of systems is otherwise negative aside from elements mentioned in the history of present illness. Source: Patient Exam Limitations: No limitations - Personal History Tetanus Vaccine Date: >10 YEARS - Medical/Surgical History Hx Asthma: No Hx Chronic Respiratory Disease: No Hx Diabetes: No Hx Cardiac Disease: No Hx Renal Disease: No Hx Cirrhosis: No Hx Alcoholism: No Hx HIV/AIDS: No Hx Splenectomy or Spleen Trauma: No Other PMH: Crohns, DD scoliosis, SBO. s/p bowel resection, breast augmentation , c-spine fusion, tubal ligation, ostomy, reverse ostomy, "13 abdominal surgeries in 15 months" - Social History Smoking Status: Former smoker - Physical Exam Exam: General Appearance: Alert, no distress Eyes: Pupils equal and round no pallor or injection ENT, Mouth: Mucous membranes moist Respiratory: There are no retractions, lungs are clear to auscultation Cardiovascular: Regular rate and rhythm Gastrointestinal: Multiple abdominal incisions, old surgical scars, drainage from lower abdominal sinus tract. No focal abdominal tenderness, no peritoneal signs Neurological: 5/5 strength all 4 extremities Skin: Warm and dry, no rashes Musculoskeletal: Neck is supple nontender Extremities: symmetrical, full range of motion Psychiatric: Patient is oriented X 3, there is no agitation Constitutional: Initial Vital Signs Temperature (C) 37.6 C 06/07/18 18:20 Heart Rate 105 H 06/07/18 18:20 Respiratory Rate 16 06/07/18 18:20 Blood Pressure 132/85 H 06/07/18 18:20 O2 Sat (%) 95 06/07/18 18:20 O2 Delivery Mode Room Air Allergies/Adverse Reactions: Penicillins Allergy (Severe, Verified 06/07/18 18:34) SEIZURES Sulfa (Sulfonamide Antibiotics) Allergy (Severe, Verified 06/07/18 18:34) NAUSEA azathioprine Allergy (Unknown, Verified 06/07/18 18:34) Rash budesonide Allergy (Unknown, Verified 06/07/18 18:34) Rash cefuroxime Allergy (Unknown, Verified 06/07/18 18:34) Other-Enter Comments ertapenem Allergy (Unknown, Verified 06/07/18 18:34) Other-Enter Comments fentanyl Allergy (Unknown, Verified 06/07/18 18:34) MEMORY LOSS gabapentin Allergy (Unknown, Verified 06/07/18 18:34) Rash infliximab Allergy (Unknown, Verified 06/07/18 18:34) Itching mesalamine Allergy (Unknown, Verified 06/07/18 18:34) Rash morphine Allergy (Unknown, Verified 06/07/18 18:34) PT BECOMES "MEAN" azathioprine sodium [From Imuran] Allergy (Verified 06/07/18 18:34) Rash Home Medications: Medication Instructions Recorded LYRICA 04/12/18 Prozac 10 MG (*) 04/12/18 Medical Decision Making ED Course/Re-evaluation: The patient presents to the ED with increasing abdominal drainage from a abdominal sinus tract. This is a chronic condition for the patient however it has increased in volume today. She has no clinical evidence of peritonitis. I reviewed her past medical records. I was able to contact her regular general surgeon Dr. Mccain who informs me this is not an unexpected event for the patient. She recommends the application of an ostomy bag. She does not feel that abdominal imaging is warranted in the absence of peritoneal signs. The patient is comfortable going home and following up with Dr. Mccain as an outpatient. She is discharged home with customary aftercare instructions and return precautions. Differential Diagnosis: Differential diagnosis considered includes intra-abdominal abscess, fistula, peritonitis - Data Points Laboratory Results: Laboratory Results 06/07/18 18:30 06/07/18 18:30 06/07/18 06/07/18 18:30 18:30 WBC 8.31 10^3/uL 10^3/uL (3.80-9.50) RBC 4.19 10^6/uL 10^6/uL (4.18-5.33) Hgb 10.1 g/dL L g/dL (12.6-16.3) Hct 31.6 % L % (38.0-47.0) MCV 75.4 fL L fL (81.5-99.8) MCH 24.1 pg L pg (27.9-34.1) MCHC 32.0 g/dL L g/dL (32.4-36.7) RDW 18.9 % H % (11.5-15.2) Plt Count 443 10^3/uL H 10^3/uL (150-400) MPV 9.4 fL fL (8.7-11.7) Neut % (Auto) 60.0 % % (39.3-74.2) Lymph % (Auto) 21.9 % % (15.0-45.0) Sargent % (Auto) 11.7 % % (4.5-13.0) Eos % (Auto) 5.4 % % (0.6-7.6) Baso % (Auto) 0.6 % % (0.3-1.7) Nucleat RBC Rel Count 0.0 % % (0.0-0.2) Absolute Neuts (auto) 4.99 10^3/uL 10^3/uL (1.70-6.50) Absolute Lymphs (auto) 1.82 10^3/uL 10^3/uL (1.00-3.00) Absolute Monos (auto) 0.97 10^3/uL H 10^3/uL (0.30-0.80) Absolute Eos (auto) 0.45 10^3/uL H 10^3/uL (0.03-0.40) Absolute Basos (auto) 0.05 10^3/uL 10^3/uL (0.02-0.10) Absolute Nucleated RBC 0.00 10^3/uL 10^3/uL (0-0.01) Immature Gran % 0.4 % % (0.0-1.1) Immature Gran # 0.03 10^3/uL 10^3/uL (0.00-0.10) Sodium 140 mEq/L mEq/L (135-145) Potassium 4.3 mEq/L mEq/L (3.5-5.2) Chloride 105 mEq/L mEq/L (97-110) Carbon Dioxide 22 mEq/l mEq/l (22-31) Anion Gap 13 mEq/L mEq/L (6-14) BUN 31 mg/dL H mg/dL (7-23) Creatinine 0.9 mg/dL mg/dL (0.6-1.0) Estimated GFR > 60 Glucose 99 mg/dL mg/dL (70-100) Calcium 9.2 mg/dL mg/dL (8.5-10.4) Medications Given: Discontinued Medications Sodium Chloride (Ns) 1,000 mls @ 0 mls/hr IV EDNOW ONE; Wide Open PRN Reason: Protocol Stop: 06/07/18 18:32 Last Admin: 06/07/18 18:46 Dose: 1,000 mls Departure - Departure Disposition: Home, Routine, Self-Care Clinical Impression: Acute Crohn's disease with fistula Condition: Good Instructions: Crohn Disease (ED) Additional Instructions: 1. Please return to the ED for severe pain, high fever, vomiting or other concerns. 2. Please follow up tomorrow with Dr. Mccain in her office. Referrals: Kassy Yee MD [Medical Doctor] - As per Instructions
[2018-06-07] MEDS ORDERED: NS 1,000 ML IV ONE (18:31)
[2018-06-07 18:51] LABS: PLATELET COUNT 443 10^3/uL (150-400)
[2018-06-07 20:57] VITALS: BP 109/70
[2018-06-07] MEDS ORDERED: OXYCODONE/APAP 5/325MG PREPACK#4 BTL TAKEHOME ONE (21:01)
== END 2018-06-07 21:07 | disposition home or self-care (01) ==
LOC: EDUNIT#
DX: K50.913 Crohn's disease, unspecified, with fistula (principal); Z90.49 Acquired absence of other specified parts of digestive tract

== ENCOUNTER 2018-06-08 13:35 | Inpatient (IN) | payer OTHER ==
[2018-06-08] MEDS ORDERED: ACETAMINOPHEN 325 MG TAB PO PRN (14:11)
[2018-06-08] MEDS ORDERED: ONDANSETRON DISINTEGRATING 4 MG TAB PO PRN (14:11)
[2018-06-08] MEDS ORDERED: ONDANSETRON 4 MG/2 ML VIAL IVP PRN (14:11)
[2018-06-08] MEDS ORDERED: D5W 1/2 NS W/ 20 KCl/L 1,000 ML IV SCH (14:15)
--- NOTE | 2018-06-08 17:09 | WOCRNPDOC ---
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 The medial wound is producing extensive amounts of greenish/ yellow effluent, sometimes with food chunks. The lateral mouth appears relatively dormant at this time. Patient reports that it produces occasionally and that it can produce significant amounts at times. The abdomen around the fistulas is a mixture of soft with subcutaneous fat and scar tissue. There are also multiple creases and contours. Patient reports having to change the ABD dressing on her abdomen so many times per day that she fills a medium sized trash can in less than 6 hours. She also has tried pouching and it didnt last for more than a couple of hours. Suction was set up to manage the drainage while a new pouch was applied. A 4 inch appliance was used and a template created and left in the room. Several pieces of small and large barrier rings were used to fill the cavities and to try and level the surface. The biggest pouching challenge will be the midline fistula, as the mouth is very retracted below skin surface. Two creases filled with barrier strips. This lasted 2 hours. Next we attempted a small soft silicone ring to try and divert the effluent up and out into the pouch from the fistula. This was created by cutting a 1 cm piece of a condom catheter and placing it over the fistula then applying paste and a small ring that was cut to fit around it. The creases and divits were filled as before. Cherie ZAVALA in room and Gabriel RN's. Advised patient sit up a little and not lie flat so the effluent will move down with gravity. Wound care will follow tomorrow. Will research a 4 inch convex appliance with belt tabs. If not may consider a convex 3 inch if available.
--- NOTE | 2018-06-08 18:16 | PDHOSCONS ---
<Clementine Gutierrez - Last Filed: 06/08/18 19:40> History and Physical - Chief Complaint Hematuria - History of Present Illness Hospital medicine was asked to consult while the pt was in the hospital for wound care. She is a 72 y/o female with complicated surgical history in relation to her Chron's disease. She was seen yesterday in the ED d/t increase in volume of abdominal fistula drainage. This has been an issue beginning in March 2018 and which time was discussed with Dr. Yee that she would need an ostomy bag. Yesterday in the ED, an ostomy bag was placed and instructed to f/u with Dr. Yee. The pt f/u'ed with Dr. Yee today with the main c/o hematuria. Dr. Yee sent the pt for direct admission for not only additional wound care by the wound team d/t a failing ostomy bag, erythema surrounding the fistulas, and excessive yellow/green drainage but further evaluation of hematuria. Urinalysis taken at Dr. Yee's office with results of red urine color, moderately turbid, Protein 2+, 3+ blood, positive nitrate, 4+ bacteria, 4+ mucus. The pt reports hematuria and hematochezia for approximately 3 days. Denies dysuria. Describes it as "bright" blood. Denies renal condition. No fevers, chills, chest pain, SOB, dizziness. Past Medical/Surgical History 1. Chron's disease 2. Chronic pain syndrome 3. DDD 4. Depression 5. Enterocutaneous fistula 6. SBO 7. Ostomy, reverse ostomy 8. Pulmonary nodule 9. Bilateral breast augmentation 10. Cervical discectomy 11. Colectomy 12. Laminectomy Social 1. , lives alone in a town house. 2. Occasionally smoke cigarettes, regular cannabis user. Denies alcohol. 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 Vital Signs 116/60 72 HR 16 Respirations 98% RA 36.5 History Information - Allergies/Home Medication List Allergies/Adverse Reactions: Penicillins Allergy (Severe, Verified 06/07/18 18:34) SEIZURES Sulfa (Sulfonamide Antibiotics) Allergy (Severe, Verified 06/07/18 18:34) NAUSEA azathioprine Allergy (Unknown, Verified 06/07/18 18:34) Rash budesonide Allergy (Unknown, Verified 06/07/18 18:34) Rash cefuroxime Allergy (Unknown, Verified 06/07/18 18:34) Other-Enter Comments ertapenem Allergy (Unknown, Verified 06/07/18 18:34) Other-Enter Comments fentanyl Allergy (Unknown, Verified 06/07/18 18:34) MEMORY LOSS gabapentin Allergy (Unknown, Verified 06/07/18 18:34) Rash infliximab Allergy (Unknown, Verified 06/07/18 18:34) Itching mesalamine Allergy (Unknown, Verified 06/07/18 18:34) Rash morphine Allergy (Unknown, Verified 06/07/18 18:34) PT BECOMES "MEAN" azathioprine sodium [From Imuran] Allergy (Verified 06/07/18 18:34) Rash Home Medications: DULoxetine [Cymbalta 30 MG (*)] 30 mg PO BID 04/12/18 [Last Taken Unknown] Pregabalin [Lyrica 100mg (*)] 100 mg PO BID 04/12/18 [Last Taken Unknown] I have personally reviewed and updated: family history, medical history, social history, surgical history Past Medical History: See HPI List - Past Medical History Crohn's Disease - Surgical History Additional surgical history: Colectemy s/p ostomy and takedown - Family History Positive for: cancer, father with history of CAD younger than 55, myocardial infarction - Social History Smoking Status: Current some day smoker Alcohol Use: None Drug Use: Marijuana Review of Systems Review of Systems: ROS: 10pt was reviewed & negative except for what was stated in HPI & below Constitutional: Reports: no symptoms EENMT: Reports: no symptoms Cardiac: Reports: no symptoms Respiratory: Reports: no symptoms Gastrointestinal: Reports: blood streaked stools, diarrhea Genitourinary: Reports: hematuria Muscolosketal: Reports: no symptoms Skin: Reports: no symptoms Neurological: Reports: no symptoms Hematologic/Lymphatic: Reports: no symptoms Immunologic/Allergy: Reports: other (See Allergy list) Physical Exam Physical Exam: Temp Pulse Resp BP Pulse Ox 36.5 C 72 16 116/60 98 06/08/18 14:14 06/08/18 14:14 06/08/18 14:14 06/08/18 14:14 06/08/18 14:14 Constitutional: no apparent distress, appears nourished, not in pain Eyes: PERRL, anicteric sclera, EOMI Ears, Nose, Mouth, Throat: moist mucous membranes, hearing normal, ears appear normal, no oral mucosal ulcers Cardiovascular: regular rate and rhythym, no murmur, rub, or gallop, No edema Peripheral Pulses: 2+: dorsalis-pedis (R) (Radial 2+), dorsalis-pedis (L) ( Radial 2+) Respiratory: no respiratory distress, no rales or rhonchi, clear to auscultation Gastrointestinal: normoactive bowel sounds, soft, non-tender abdomen, no palpable masses, other (Ostomy bag) Genitourinary: no bladder fullness, no bladder tenderness Skin: warm, normal color, no rashes or abrasions, no fluctuance, no induration, No mottled Musculoskeletal: full muscle strength, no muscle tenderness, normal joint ROM, no joint effusions Neurologic: AAOx3, sensation intact bilaterally, CN II-XII Intact Psychiatric: interacting appropriately, not anxious, not encephalopathic, thought process linear Lymph, Heme, Immunologic: no cervical LAD, no supraclavicular LAD Assessment & Plan Plan: 1. Abdominal fistula -Wound care consult 2. Hematuria: origin or cause unknown. -Culture UA from today pending -PETE, c3c4, ANAC pending -Protein/creatinine ratio pending -Repeat UA tomorrow -US renal pending -Consider urology consult if pending results are inconclusive -CBC/CMP tomorrow 3. Hematochezia -Occult stool check x 3 4. Anemia: this has been chronic and stable. Continue to monitor. 5. Pulmonary nodule: the pt was educated to f/u outpatient in regards to this nodule. Diet: Regular Code: Full VTE ppx: low, may ambulate in room ad tino Dispo: Admit to obs <Justin Mitchell - Last Filed: 06/08/18 21:50> History and Physical - History of Present Illness Review of Systems Review of Systems: Physical Exam Physical Exam: Temp Pulse Resp BP Pulse Ox 37.2 C 87 16 104/60 94 06/08/18 19:39 06/08/18 19:39 06/08/18 19:39 06/08/18 19:39 06/08/18 19:39 Assessment & Plan Plan: Patient seen independently and care plan reviewed with TRANG Gutierrez. Agree with her assessment and plan as outlined above. Please see separate note for further details.
[2018-06-08] MEDS ORDERED: HYDROCODONE/APAP 5/325 TAB PO PRN (20:29)
[2018-06-08] MEDS: PREGABALIN 100 MG CAP PO SCH (21:29)
[2018-06-08] MEDS: DULoxetine 30 MG CAP PO SCH (21:29)
[2018-06-08] MEDS: oxyCODONE IR 5 MG TAB PO PRN (21:29)
--- NOTE | 2018-06-08 21:55 | HOSPPROG ---
Hospitalist Progress Note Assessment/Plan: 72 yo F with PMH of complicated Crohn's disease with multiple abdominal surgeries and a chronic intra abdominal abscess with fistula and chronic drainage sent in as direct admit by Dr. Yee for increased fistula drainage and new onset hematuria. # intra abdominal wound: with 2 stomatized enterocutaneous fistulas present and c/o increasing drainage and increasing difficulty managing at home--filling a trash can of dressings every [address] Yee who recommended that given leakage and difficulty with maintaining appliance around the site with associated skin irritation that she be brought in for wound care consult and management. Last imaging was in March at which time the fluid collection appeared stable and evidence of fistula to bowel noted. No evidence of associated cellulitis adjacent to site, appreciate wound care and surgery eval. # hematuria: this has been present for the last several days per patients report and currently with gross hematuria, she denies any other urinary complaints but there is significant wbc present as well so this could be as simple as a UTI--cultures pending. Discussed with renal who recommended autoimmune w/u and repeat UA in am. If hematuria remains persistent without clear etiology may require cystoscopy though this could be arranged as an OP. will start levofloxacin for now empirically pending urine culture # hematochezia: patient states this too has been present for several days, does have known Crohn's so could be related to that, h/h stable from prior baseline or if anything better than usua # anemia: chronic and multifactorial with chronic GI losses from Crohn's, anemia of chronic disease, currently better than usual # Crohn's disease: with multiple abdominal surgeries/bowel resections 2/2 that, previously required prolonged TPN, not currently on any meds for this specifically # observation status Patient new to my care. Old records reviewed and summarized as above. Care plan reviewed with ER doctor and TRANG Gutierrez, please see her H&P for further details. Objective: Vital Signs Temp Pulse Resp BP Pulse Ox 37.2 C 87 16 104/60 94 06/08/18 19:39 06/08/18 19:39 06/08/18 19:39 06/08/18 19:39 06/08/18 19:39 ICD10 Worksheet Patient Problems: Problems Problem Status Onset Bronchitis Acute Malnutrition Acute Crohns disease Acute Intra-abdominal abscess Acute Abdominal pain, chronic, right lower quadrant Acute Crohns disease of small intestine Acute Abdominal pain Acute Acute Crohn's disease Acute Altered mental status Acute Severe sepsis Acute Abdominal pain Acute Vomiting Acute Constipation Acute Fever Acute Postoperative infection Acute Periumbilical hernia Acute Wound infection after surgery Acute
[2018-06-09 05:19] LABS: PLATELET COUNT 410 10^3/uL (150-400)
[2018-06-09] MEDS ORDERED: D10W 1,000 ML IV PRN (10:04)
--- NOTE | 2018-06-09 10:43 | WOCRNPDOC ---
[facility] Advanced Assessment Note - Skin Integrity Problem, Advanced Assess Abdomen Fistula Dressing Type: ABD Pad Dressing Description: Saturated, Soiled Exudate Amount: Excessive Exudate Color: Yellow, Brown Exudate Characteristic(s): Fecal Integumentary Issue Intervention: Dressing Changed Kenzie Wound Tissue: Erythema, Raw, Swollen, Weeping, Painful/Tender Kenzie Wound Swelling: Moderate Wound Bed Color: Red Skin Integrity Problem Comment: Discussed patient plan of care with LUCAS Wolfe. maintenance technician 2nd shift nurse had reported patient refusal to change appliance to LUCAS Wolfe, and ABD pads were used instead. However, ABD pads saturated quickly, and needed to be replaced. Dr Yee and Sosa Ortiz PAC rounded on patient. Dr Yee reinforced need to have appliance placed and changed in order to let skin have time to heal, even if only for a few hours at a time. Patient agreed to allow appliance placement. Skin cleaned with water and washcloth. ESTHER Crouch assisted with appplying suction via yankauer at fistula site to keep skin dry. Skin prep and stoma powder applied. Sections of barrier rings applied under right fistula opening, along midline scar, and at right corner of medial/ currently draining fistula. Paste applied. New appliance placed, and all sections of dressings melded together before applying warm blanket. Wound care will follow.
[2018-06-09] MEDS ORDERED: LORazepam 2 MG/ML INJ IVP ONE ×2 (11:10→13:30)
[2018-06-09] MEDS: HYDROmorphONE/DILAUDID 1 MG/ML INJ IVP PRN (11:11)
--- NOTE | 2018-06-09 12:20 | ASMTCMCOM ---
CM Note CM Note Notes: Pt is a 72 y/o female admitted for abdominal fistula, hematura and lgib. Pt is a [facility] client. Wound care and OT has been ordered. CM spoke to Zamzam at [facility] (P#: [phone]). Pt goes to the [facility] program 2x/week (Tuesday and Tuesday). Pts PCP is Dr. Gallagher. Needs are TBD at this time. CM to follow. Plan: [facility] Date Signed: 06/09/2018 12:19 PM Electronically Signed By:YULI Cruz
[2018-06-09] MEDS: DULoxetine 30 MG CAP PO SCH ×2 (17:11→21:35)
[2018-06-09] MEDS: PREGABALIN 100 MG CAP PO SCH ×2 (17:12→21:35)
--- NOTE | 2018-06-09 17:55 | SOAPPROG ---
SOAP Progress Note Assessment/Plan: Assessment/Plan: 72yo F with Crohn's disease and a complicated surgical history , admitted with enterocutaneous fistula Wound care to help manage fistula drainage to and protecting skin - ostomy appliance Continues to have high output - made NPO and start TPN PICC placement Appreciate hospitalists Seen c Dr. Yee. S: no new complaints this am. When she eats, it immediately comes out the fistula O: Thin woman in NAD NO increased WOB Abd with 2 enterocutaneous fistulas, more midline one higher output. Significant periwound erythema from drainage. No evidence of infection Multiple surgical scars Plan: 06/09/18 17:51 Objective: Vital Signs Temp Pulse Resp BP Pulse Ox 37.4 C 96 12 126/85 H 94 06/09/18 16:00 06/09/18 16:00 06/09/18 16:00 06/09/18 16:00 06/09/18 16:00 Laboratory Results 06/09/18 05:00 06/09/18 05:00 06/08/18 06/09/18 06/10/18 05:59 05:59 05:59 Intake Total 731 Balance 731 ICD10 Worksheet Patient Problems: Problems Problem Status Onset Abdominal pain Acute Abdominal pain Acute Abdominal pain, chronic, right lower quadrant Acute Acute Crohn's disease Acute Altered mental status Acute Bronchitis Acute Constipation Acute Crohns disease Acute Crohns disease of small intestine Acute Fever Acute Intra-abdominal abscess Acute Malnutrition Acute Periumbilical hernia Acute Postoperative infection Acute Severe sepsis Acute Vomiting Acute Wound infection after surgery Acute
[2018-06-09 17:56] LABS: PLATELET COUNT 408 10^3/uL (150-400)
[2018-06-09 18:08] LABS: INR 1.03 (0.83-1.16); PROTIME(PATIENT) 13.7 SEC (12.0-15.0)
--- NOTE | 2018-06-09 20:29 | HOSPPROG ---
Hospitalist Progress Note Assessment/Plan: 72 yo F with PMH of complicated Crohn's disease with enterocutaneous fistual admitted by surgery for evaluation enterocutaneous fistula - case discussed and surgery recommending wound care for ostomy site, and making patient NPO with TPN until erythematous skin heals. hematuria: per patient resolved today spontaneously. Urine did grow out lactose fermenting gram negative rods and she is being treated with levaquin. Repeat UA pending and I will continue levaquin for possible UTI. hematochezia: also spontaneously resolved today. Monitor anemia: chronic and multifactorial with chronic GI losses from Crohn's, anemia of chronic disease, currently better than usual Crohn's disease: with multiple abdominal surgeries/bowel resections 2/2 that, previously required prolonged TPN, not currently on any meds for this specifically PPX- SCDs, can start lovenox in am Fluids- on TPN Lytes- WNL, monitor Nutrition- NPO now Cor- FUll Dispo- change to inpatient as she is getting TPN and needs wound care. Objective: Vital Signs Temp Pulse Resp BP Pulse Ox 36.6 C 82 16 117/74 92 06/09/18 19:59 06/09/18 19:59 06/09/18 19:59 06/09/18 19:59 06/09/18 19:59 Laboratory Results 06/09/18 17:40 06/09/18 17:40 06/08/18 06/09/18 06/10/18 05:59 05:59 05:59 Intake Total 731 Balance 731 PT 13.7 SEC (12.0-15.0) 06/09/18 17:40 INR 1.03 (0.83-1.16) 06/09/18 17:40 - Physical Exam Constitutional: no apparent distress, appears nourished, not in pain Eyes: PERRL, anicteric sclera, EOMI Ears, Nose, Mouth, Throat: moist mucous membranes, hearing normal, ears appear normal, no oral mucosal ulcers Cardiovascular: regular rate and rhythym, no murmur, rub, or gallop Respiratory: no respiratory distress, no rales or rhonchi, clear to auscultation Gastrointestinal: normoactive bowel sounds, soft, non-tender abdomen, no palpable masses, other (two draining fistulas drainage watery material. Skin surrounding fistulas is erythematous but does not look infected. ) Genitourinary: no bladder fullness, no bladder tenderness, no renal bruits Skin: no rashes or abrasions, no fluctuance, no induration Musculoskeletal: full muscle strength, no muscle tenderness, normal joint ROM Neurologic: AAOx3, sensation intact bilaterally Psychiatric: interacting appropriately, not anxious, not encephalopathic, thought process linear Lymph, Heme, Immunologic: no cervical LAD, no supraclavicular LAD ICD10 Worksheet Patient Problems: Problems Problem Status Onset Abdominal pain Acute Abdominal pain Acute Abdominal pain, chronic, right lower quadrant Acute Acute Crohn's disease Acute Altered mental status Acute Bronchitis Acute Constipation Acute Crohns disease Acute Crohns disease of small intestine Acute Fever Acute Intra-abdominal abscess Acute Malnutrition Acute Periumbilical hernia Acute Postoperative infection Acute Severe sepsis Acute Vomiting Acute Wound infection after surgery Acute
[2018-06-09] MEDS: TPN W/ FAMOTIDINE 1 EA BAG IV SCH (22:06)
[2018-06-10 05:52] LABS: PLATELET COUNT 430 10^3/uL (150-400)
[2018-06-10 06:02] LABS: INR 1.11 (0.83-1.16); PROTIME(PATIENT) 14.5 SEC (12.0-15.0)
--- NOTE | 2018-06-10 07:33 | PDMN ---
Medical Necessity Medical necessity: MC inflammatory bowel disease: pt admitted with enterocutaneous fistula, with sig periwound erythema from drainage, sgy consult rec. ongoing wound care and NPO with TPN until erythematous skin heals status changed to INPT 06/09/18 for ongoing med nec care, req TPN and further monitoring and tx. of wound- PICC line placed
[2018-06-10] MEDS: oxyCODONE IR 5 MG TAB PO PRN (11:11)
[2018-06-10] MEDS: PREGABALIN 100 MG CAP PO SCH ×2 (11:11→21:10)
[2018-06-10] MEDS: DULoxetine 30 MG CAP PO SCH ×2 (11:11→21:10)
[2018-06-10] MEDS: HYDROmorphONE/DILAUDID 1 MG/ML INJ IVP PRN ×3 (11:18→19:35)
--- NOTE | 2018-06-10 11:37 | SOAPPROG ---
SOAP Progress Note Assessment/Plan: Assessment: wants to be able to take her oral meds, ok for sips with meds. Needs to limit PO intake, however removed her ostomy appliance, it is uncomfortable. She just wants ABD pads for the time being. Will see if we cant get something to fit better and be more comfortable for her but dry dressings arent going to allow the skin to heal Plan: 06/10/18 11:35 Subjective: frustrated Objective: Vital Signs Temp Pulse Resp BP Pulse Ox 36.6 C 93 16 135/94 H 99 06/10/18 11:27 06/10/18 11:27 06/10/18 11:27 06/10/18 11:27 06/10/18 11:27 Microbiology 06/08/18 22:16 Urine Culture - Final Urine,Clean Catch Klebsiella Pneumoniae Ssp Pneu Laboratory Results 06/10/18 05:39 06/10/18 05:39 06/09/18 06/10/18 06/11/18 05:59 05:59 05:59 Intake Total 731 Output Total 75 Balance 731 -75 PT 14.5 SEC (12.0-15.0) 06/10/18 05:39 INR 1.11 (0.83-1.16) 06/10/18 05:39 ICD10 Worksheet Patient Problems: Problems Problem Status Onset Abdominal pain Acute Abdominal pain Acute Abdominal pain, chronic, right lower quadrant Acute Acute Crohn's disease Acute Altered mental status Acute Bronchitis Acute Constipation Acute Crohns disease Acute Crohns disease of small intestine Acute Fever Acute Intra-abdominal abscess Acute Malnutrition Acute Periumbilical hernia Acute Postoperative infection Acute Severe sepsis Acute Vomiting Acute Wound infection after surgery Acute
[2018-06-10] MEDS ORDERED: NS 1,000 ML IV SCH (13:00)
--- NOTE | 2018-06-10 15:35 | WOCRNPDOC ---
WOCRN Advanced Assessment Note - Skin Integrity Problem, Advanced Assess Abdomen Fistula Dressing Type: ABD Pad Dressing Description: Clean/Dry, Intact Integumentary Issue Intervention: Visualized Under Dressing Skin Integrity Problem Comment: Skin has massively improved since pouch placement and it holding for 24 hours. The erythema is now a dull red and skin appears much healthier. Patient however took the pouch off this morning and prefers ABD's. She didnt like how much time the pouch took and that it was itchy. Wound RN conveyed to her that her skin will be red and broken down with enzymatic drainage sitting on his skin all the time. Education done with patient regarding her options, and we discussed that the pouching will take less time as we refine which method works best, however the patient refused more pouching. Patient verbalizes understanding that her skin breakdown will continue and will not improve unless the area is pouched. Suyapa Hernandes aware. Wound care will sign off this patient.
--- NOTE | 2018-06-10 16:35 | HOSPPROG ---
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 Currently using ABDs to cover fistula, but surgery concerned that skin will not heal while covered. Will continue wound care for now, TPN. hematuria:repeat ua still with hematuria. may need to discuss with urology for cystoscopy but not necessarily something needing to be addressed while inpatient. anemia: chronic and multifactorial with chronic GI losses from Crohn's, anemia of chronic disease, currently better than usual Crohn's disease: with multiple abdominal surgeries/bowel resections 2/ that, previously required prolonged TPN, not currently on any meds for this specifically PPX- SCDs, lovenox Fluids- on TPN Lytes- WNL, monitor Nutrition- NPO now Cor- FUll Dispo- inpatient for wound care, TPN. Subjective: patient says that skin around fistulas is irritated and itchy and bell. No dysuria, fevers, chills, nausea vomiting or other symptoms. Objective: Vital Signs Temp Pulse Resp BP Pulse Ox 36.7 C 87 16 116/79 97 06/10/18 16:00 06/10/18 16:00 06/10/18 16:00 06/10/18 16:00 06/10/18 16:00 Microbiology 06/08/18 22:16 Urine Culture - Final Urine,Clean Catch Klebsiella Pneumoniae Ssp Pneu Laboratory Results 06/10/18 05:39 06/10/18 05:39 06/09/18 06/10/18 06/11/18 05:59 05:59 05:59 Intake Total 731 Output Total 75 125 Balance 731 -75 -125 PT 14.5 SEC (12.0-15.0) 06/10/18 05:39 INR 1.11 (0.83-1.16) 06/10/18 05:39 - Physical Exam Constitutional: no apparent distress, appears nourished, not in pain Eyes: PERRL, anicteric sclera, EOMI Ears, Nose, Mouth, Throat: moist mucous membranes, hearing normal, ears appear normal, no oral mucosal ulcers Cardiovascular: regular rate and rhythym, no murmur, rub, or gallop Respiratory: no respiratory distress, no rales or rhonchi, clear to auscultation Gastrointestinal: other (enterocutanous fistulas with minimal yellow watery discharge. abdomen not tender, with BS rpresent. ) Genitourinary: no bladder fullness, no bladder tenderness, no renal bruits Skin: other (abdominal skin erythematous) Musculoskeletal: full muscle strength, no muscle tenderness, normal joint ROM Neurologic: AAOx3, sensation intact bilaterally Psychiatric: interacting appropriately, not anxious, not encephalopathic, thought process linear Lymph, Heme, Immunologic: no cervical LAD, no supraclavicular LAD ICD10 Worksheet Patient Problems: Problems Problem Status Onset Abdominal pain Acute Abdominal pain Acute Abdominal pain, chronic, right lower quadrant Acute Acute Crohn's disease Acute Altered mental status Acute Bronchitis Acute Constipation Acute Crohns disease Acute Crohns disease of small intestine Acute Fever Acute Intra-abdominal abscess Acute Malnutrition Acute Periumbilical hernia Acute Postoperative infection Acute Severe sepsis Acute Vomiting Acute Wound infection after surgery Acute
[2018-06-10] MEDS: TPN W/ FAMOTIDINE 1 EA BAG IV SCH (21:10)
[2018-06-11] MEDS: HYDROmorphONE/DILAUDID 1 MG/ML INJ IVP PRN ×3 (00:04→18:16)
[2018-06-11 05:15] LABS: PLATELET COUNT 422 10^3/uL (150-400)
[2018-06-11 05:24] LABS: INR 1.06 (0.83-1.16)
--- NOTE | 2018-06-11 09:17 | SOAPPROG ---
SOAP Progress Note Assessment/Plan: Assessment: skin looks much better today, still covering with dry gauze but fistulas have drastically slowed down TPN is working, will need to cont NPO except meds ideally, will get her set up with home health, home TPN and plan for dc in next day or so she understands that she will be NPO for some time and is on board with current treatment as long as she gets her meds Plan: 06/10/18 11:35 06/11/18 09:16 Subjective: feels much better today Objective: Vital Signs Temp Pulse Resp BP Pulse Ox 36.9 C 70 16 120/66 95 06/11/18 04:00 06/11/18 04:00 06/11/18 04:00 06/11/18 04:00 06/11/18 04:00 Microbiology 06/08/18 22:16 Urine Culture - Final Urine,Clean Catch Klebsiella Pneumoniae Ssp Pneu Laboratory Results 06/11/18 05:05 06/11/18 05:05 06/10/18 06/11/18 06/12/18 05:59 05:59 05:59 Intake Total 1218 Output Total 75 525 Balance -75 693 PT 14.0 SEC (12.0-15.0) 06/11/18 05:05 INR 1.06 (0.83-1.16) 06/11/18 05:05 ICD10 Worksheet Patient Problems: Problems Problem Status Onset Abdominal pain Acute Abdominal pain Acute Abdominal pain, chronic, right lower quadrant Acute Acute Crohn's disease Acute Altered mental status Acute Bronchitis Acute Constipation Acute Crohns disease Acute Crohns disease of small intestine Acute Fever Acute Intra-abdominal abscess Acute Malnutrition Acute Periumbilical hernia Acute Postoperative infection Acute Severe sepsis Acute Vomiting Acute Wound infection after surgery Acute
[2018-06-11] MEDS: DULoxetine 30 MG CAP PO SCH ×2 (09:21→20:37)
[2018-06-11] MEDS: PREGABALIN 100 MG CAP PO SCH ×2 (09:21→20:37)
--- NOTE | 2018-06-11 13:27 | HOSPPROG ---
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 She still is covering it with abd pads. -surgery managing -cont NPO, and TPN -wound care hematuria:Urine still red, no clots but clearly with hematuria. Discussed with habilitation training specialist urology who will see patient, and asked that I order a CT urogram which is currently pending. anemia: chronic and multifactorial with chronic GI losses from Crohn's, anemia of chronic disease, currently better than usual UTI- completed course of levaquin. Never had symptoms. Culture with GNR Crohn's disease: with multiple abdominal surgeries/bowel resections 2/2 that, previously required prolonged TPN, not currently on any meds for this specifically PPX- SCDs, lovenox Fluids- on TPN Lytes- WNL, monitor Nutrition- NPO now Cor- FUll Dispo- Likely DC in the next day or so on TPN per surgery Subjective: patient wtih no complaints. no ab pain, no dysuria. No drainage from fistula today and it doesnt hurt any longer. Objective: Vital Signs Temp Pulse Resp BP Pulse Ox 36.9 C 65 16 113/64 96 06/11/18 08:00 06/11/18 08:00 06/11/18 08:00 06/11/18 08:00 06/11/18 08:00 Microbiology 06/08/18 22:16 Urine Culture - Final Urine,Clean Catch Klebsiella Pneumoniae Ssp Pneu Laboratory Results 06/11/18 05:05 06/11/18 05:05 06/10/18 06/11/18 06/12/18 05:59 05:59 05:59 Intake Total 1218 Output Total 75 525 Balance -75 693 PT 14.0 SEC (12.0-15.0) 06/11/18 05:05 INR 1.06 (0.83-1.16) 06/11/18 05:05 - Physical Exam Constitutional: no apparent distress, appears nourished, not in pain Eyes: PERRL, anicteric sclera, EOMI Ears, Nose, Mouth, Throat: moist mucous membranes, hearing normal, ears appear normal, no oral mucosal ulcers Cardiovascular: regular rate and rhythym, no murmur, rub, or gallop Respiratory: no respiratory distress, no rales or rhonchi, clear to auscultation Gastrointestinal: other (fistula with no drainage. no abdominal tenderness. BS present. erythema resolving. ) Genitourinary: no bladder fullness, no bladder tenderness, no renal bruits Skin: no rashes or abrasions, no fluctuance, no induration Musculoskeletal: full muscle strength, no muscle tenderness, normal joint ROM Neurologic: AAOx3, sensation intact bilaterally Psychiatric: interacting appropriately, not anxious, not encephalopathic, thought process linear Lymph, Heme, Immunologic: no cervical LAD, no supraclavicular LAD ICD10 Worksheet Patient Problems: Problems Problem Status Onset Abdominal pain Acute Abdominal pain Acute Abdominal pain, chronic, right lower quadrant Acute Acute Crohn's disease Acute Altered mental status Acute Bronchitis Acute Constipation Acute Crohns disease Acute Crohns disease of small intestine Acute Fever Acute Intra-abdominal abscess Acute Malnutrition Acute Periumbilical hernia Acute Postoperative infection Acute Severe sepsis Acute Vomiting Acute Wound infection after surgery Acute
[2018-06-11] MEDS ORDERED: IOPAMIDOL (ISOVUE-300) 200 ML BTL ONE (13:44)
[2018-06-11] MEDS: diphenhydrAMINE 25 MG CAP PO PRN (20:37)
[2018-06-11] MEDS: TPN W/ FAMOTIDINE 1 EA BAG IV SCH (20:37)
[2018-06-12 06:09] LABS: PLATELET COUNT 435 10^3/uL (150-400)
[2018-06-12 06:17] LABS: INR 1.07 (0.83-1.16); PROTIME(PATIENT) 14.1 SEC (12.0-15.0)
[2018-06-12] MEDS: HYDROmorphONE/DILAUDID 1 MG/ML INJ IVP PRN ×2 (08:09→11:33)
[2018-06-12] MEDS: PREGABALIN 100 MG CAP PO SCH ×2 (08:10→21:32)
[2018-06-12] MEDS: DULoxetine 30 MG CAP PO SCH ×2 (08:10→21:32)
[2018-06-12] MEDS: diphenhydrAMINE 25 MG CAP PO PRN (09:46)
--- NOTE | 2018-06-12 10:17 | HOSPPROG ---
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 No longer covering it with abd pads. appears to have closed dry continue tpn hematuria: Urine still red, no clots but clearly with hematuria. CT w no cause (images reviewed/interp by me) needs cystoscopy, has long smoking hx anemia: chronic and multifactorial with chronic GI losses from Crohn's, anemia of chronic disease, currently better than usual UTI- completed course of levaquin. Never had symptoms. Culture with GNR Crohn's disease: with multiple abdominal surgeries/bowel resections 2/2 that, previously required prolonged TPN, not currently on any meds for this specifically PPX- SCDs, lovenox Fluids- on TPN Lytes- WNL, monitor Nutrition- NPO now Cor- FUll Dispo- Likely DC in the next day or so on TPN per surgery Subjective: case d/w dr foss. no fistula output Objective: Vital Signs Temp Pulse Resp BP Pulse Ox 36.6 C 82 16 101/76 95 06/12/18 08:00 06/12/18 08:00 06/12/18 08:00 06/12/18 08:00 06/12/18 08:00 Laboratory Results 06/12/18 05:55 06/12/18 05:55 06/11/18 06/12/18 06/13/18 05:59 05:59 05:59 Intake Total 1218 3033 Output Total 525 1200 0 Balance 693 1833 0 PT 14.1 SEC (12.0-15.0) 06/12/18 05:55 INR 1.07 (0.83-1.16) 06/12/18 05:55 - Physical Exam Constitutional: no apparent distress, appears nourished Eyes: PERRL, anicteric sclera Ears, Nose, Mouth, Throat: moist mucous membranes, hearing normal Cardiovascular: regular rate and rhythym, no murmur, rub, or gallop Respiratory: no respiratory distress, no rales or rhonchi Gastrointestinal: other (multiple abdominal scars, fistula dry) Genitourinary: No au in urethra Skin: warm, normal color Musculoskeletal: full muscle strength Neurologic: AAOx3 ICD10 Worksheet Patient Problems: Problems Problem Status Onset Abdominal pain Acute Abdominal pain Acute Abdominal pain, chronic, right lower quadrant Acute Acute Crohn's disease Acute Altered mental status Acute Bronchitis Acute Constipation Acute Crohns disease Acute Crohns disease of small intestine Acute Fever Acute Intra-abdominal abscess Acute Malnutrition Acute Periumbilical hernia Acute Postoperative infection Acute Severe sepsis Acute Vomiting Acute Wound infection after surgery Acute
--- NOTE | 2018-06-12 10:59 | GCON ---
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 HISTORY OF PRESENT ILLNESS: This is a very pleasant 72-year-old female with a long history of Crohn disease, who presented and is currently in-house enterocutaneous fistulae x2, resolving with TPN and n.p.o. status. She is on the hospitalist service and the general surgeons are involved. She has bee n complaining of very dark urine and I was asked to see her regarding this, and I did order a CT urog daina to evaluate and we will plan on an office cystoscopy as an outpatient once she is discharged from the hospital. My card was given. I discussed the AUA guidelines of the management of gross hematur ia and the different possibilities of what this could be in the setting of her Crohn disease includin g an enteroureteral fistula, a colovesical fistula, or enterovesical fistula. The CT urogram was rev iewed by me and with the radiologist, and we did not see any evidence of an enteroureteral or enterov esical or colovesical fistula. Nonetheless, she still requires evaluation and will benefit from this . PAST MEDICAL HISTORY: Includes Crohn disease, gross hematuria, and hypercholesterolemia. PAST SURGICAL HISTORY: Negative for urological surgeries. MEDICATIONS: See medication rec for individual medication. Medications reviewed. SOCIAL HISTORY: She lives in [place]. Social drinking only. No smoking. PHYSICAL EXAMINATION: VITAL SIGNS: Stable. Her blood pressures were one-teens over 60s, heart rate is 72 at time of examination. Oxygen saturation is 93% on room air. She is afebrile. HEENT: Norm ocephalic, atraumatic. NECK: Trachea is midline. No lymphadenopathy. CHEST: No retractions. No cyanosis. CARDIAC: No JVD. No bilateral lower extremity edema. ABDOMEN: Abnormal. There is skin cream on her fistula sites. They are healing and closing. Skin is inflamed around these but soft a nd uninfected-looking. Her abdomen is otherwise soft, but there is some tenderness around the site o f the fistula. GENITOURINARY: External genitalia are normal. MUSCULOSKELETAL: Moving all 4 extrem ities well. INTEGUMENT: No rashes or lesions. PSYCHIATRIC: Normal mood and affect. DIAGNOSTICS: CT scan was reviewed and as described above. There is no hydronephrosis. There are so me small cysts. They are too small to characterize. There are no lesions in the kidney and no stone s in the kidney. No hydronephrosis. White count is normal. Creatinine is normal. H and H are mildly low. ASSESSMENT AND PLAN: Gross hematuria in the setting Crohn disease. CT urogram is null from a urolog ical perspective. No CT evidence of fistulas to the bladder or ureters. She will require office cys toscopy. She will call the [place] office because she does not want to drive out to my office even t sylvie she lives in [place]. She states that my office is too far away. If her cystoscopy is mikey l, then this is likely due to inflammation of the ureter due to the Crohn's or inflammation in the bl adder due to the Crohn's. We will see her in the office, card given. Thank you for allowing us to participate in the care of t his patient. /[id number]/MODL
[2018-06-12] MEDS ORDERED: HYDROmorphONE/DILAUDID 2 MG TAB PO PRN (11:48)
--- NOTE | 2018-06-12 12:58 | SOAPPROG ---
SOAP Progress Note Assessment/Plan: Assessment/Plan: 72yo F with Crohn's disease and a complicated surgical history , admitted with enterocutaneous fistula NPO and TPN - fistula has stopped draining skin healing well with barrier cream. Likely TPN x 2 weeks Seen by Urology for gross hematuria - will followup outpatient for cystoscopy Appreciate hospitalists Dispo: working on SNF placement - will need TPN. S: no new complaints this am. fistula has stopped draining >24 hours. O: Thin woman in NAD No increased WOB Abd with 2 enterocutaneous fistulas, no active drainage. Periwound erythema significantly improved No evidence of infection Multiple surgical scars Objective: Vital Signs Temp Pulse Resp BP Pulse Ox 36.6 C 82 16 101/76 95 06/12/18 08:00 06/12/18 08:00 06/12/18 08:00 06/12/18 08:00 06/12/18 08:00 Laboratory Results 06/12/18 05:55 06/12/18 05:55 06/11/18 06/12/18 06/13/18 05:59 05:59 05:59 Intake Total 1218 3033 Output Total 525 1200 0 Balance 693 1833 0 PT 14.1 SEC (12.0-15.0) 06/12/18 05:55 INR 1.07 (0.83-1.16) 06/12/18 05:55 ICD10 Worksheet Patient Problems: Problems Problem Status Onset Abdominal pain Acute Abdominal pain Acute Abdominal pain, chronic, right lower quadrant Acute Acute Crohn's disease Acute Altered mental status Acute Bronchitis Acute Constipation Acute Crohns disease Acute Crohns disease of small intestine Acute Fever Acute Intra-abdominal abscess Acute Malnutrition Acute Periumbilical hernia Acute Postoperative infection Acute Severe sepsis Acute Vomiting Acute Wound infection after surgery Acute
--- NOTE | 2018-06-12 14:22 | ASMTCMCOM ---
CM Note CM Note Notes: CM discussed patient needs with LUCAS Carl. Patient went for CT today, currently on TPN. Likely to discharge home independent on Tuesday. CM to follow. Plan: independent Date Signed: 06/11/2018 04:08 PM Electronically Signed By:Nikki Sofia
--- NOTE | 2018-06-12 14:39 | ASMTCMCOM ---
CM Note CM Note Notes: CM spoke to LUCAS Carl regarding d/c POC. Pt will need to d/c on TPN. Pt is agreeable to surgery's recommendation of going to a snf. CM met w/ pt and she would like to d/c to [facility]. Referral sent to [facility]. Pt does not need 3 midnights since pt is a [facility] client. CM to follow. Plan: SNF Date Signed: 06/12/2018 02:39 PM Electronically Signed By:YULI Cruz
--- NOTE | 2018-06-12 15:44 | ASMTCMCOM ---
CM Note CM Note Notes: Pt changed her mind about going to [facility]. Pt reports that she has been in the past and had a bad experience. Pt is requesting to go to [facility]. CM spoke w/ Lana Flores and she said that they do not have a contract w/ [facility]. Referral sent to [facility]. Date Signed: 06/12/2018 03:43 PM Electronically Signed By:YULI Cruz
[2018-06-12] MEDS: TPN W/ FAMOTIDINE 1 EA BAG IV SCH (21:29)
[2018-06-13] MEDS: DULoxetine 30 MG CAP PO SCH ×2 (08:47→20:01)
[2018-06-13] MEDS: PREGABALIN 100 MG CAP PO SCH ×2 (08:47→20:01)
[2018-06-13] MEDS ORDERED: LR 1,000 ML IV ONE (10:16)
[2018-06-13] MEDS ORDERED: LIDOCAINE 2% JELLY 20 ML (UROJECT) ONE (10:43)
--- NOTE | 2018-06-13 12:24 | POSTOPPROG ---
Post Op Note Date of Operation: 06/13/18 (dictated) Surgeon: Leo Jackson Anesthesia: Local (Specify) Pre-op Diagnosis: hematuria Procedure: cysto Findings: blood from left ureter--review of CAT noted no identifiable lesions Inf/Abcess present in the surg proc area at time of surgery?: No
--- NOTE | 2018-06-13 13:52 | GOP ---
DATE OF OPERATION: 06/13/2018 SURGEON: Leo Jackson MD PREOPERATIVE DIAGNOSIS: Hematuria. POSTOPERATIVE DIAGNOSIS: Hematuria. PROCEDURE PERFORMED: Cystoscopy under local anesthesia. FINDINGS: DESCRIPTION OF PROCEDURE: After undergoing anesthesia and appropriate time-out, prepped and draped i n normal sterile fashion. The urethra was instilled with Uro-Jet and then at that point, cystoscopy was performed, and she had normal bladder with no tumor, stones, foreign bodies, or diverticula. Rig ht ureteral orifice had clear efflux. Left ureteral orifice had some bloody efflux, so apparent is t hat she has left ureteral bleeding, and we will discuss that further. Consideration in the future un ivy general anesthesia if necessary would be to consider ureteroscopy with assessment, but at the pre sent time, the bladder has no suggestion of tumors or malignancy, and she tolerated the procedure wel floridalma, has been informed. /[id number]/MODL
--- NOTE | 2018-06-13 15:09 | HOSPPROG ---
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 No longer covering it with abd pads. appears to have closed dry continue tpn hematuria: Urine still red, no clots but clearly with hematuria. cystoscopy demonstrates this is coming from L kidney or ureter no bladder mass on cysto no L sided mass in kidney, no hydro, no stone rec outpt urology follow up + pANCA noted. likey 2/2 crohns anca vasculitis wouldnt be unilateral anemia: chronic and multifactorial with chronic GI losses from Crohn's, anemia of chronic disease, currently better than usual UTI- completed course of levaquin. Never had symptoms. Culture with GNR Crohn's disease: with multiple abdominal surgeries/bowel resections 2/ that, previously required prolonged TPN, not currently on any meds for this specifically PPX- SCDs, lovenox Fluids- on TPN Lytes- WNL, monitor Nutrition- NPO now Cor- FUll Dispo-OK to go from [facility] perspective Subjective: case d/w dr olson, dr foss. hematuria improved Objective: Vital Signs Temp Pulse Resp BP Pulse Ox 37.1 C 85 16 99/75 L 94 06/13/18 14:45 06/13/18 14:45 06/13/18 14:45 06/13/18 14:45 06/13/18 14:45 Laboratory Results 06/12/18 05:55 06/12/18 05:55 06/12/18 06/13/18 06/14/18 05:59 05:59 05:59 Intake Total 3033 0 Output Total 1200 0 Balance 1833 0 PT 14.1 SEC (12.0-15.0) 06/12/18 05:55 INR 1.07 (0.83-1.16) 06/12/18 05:55 - Physical Exam Constitutional: no apparent distress, appears nourished Eyes: PERRL, anicteric sclera Ears, Nose, Mouth, Throat: moist mucous membranes, hearing normal Cardiovascular: regular rate and rhythym, no murmur, rub, or gallop Respiratory: no respiratory distress, no rales or rhonchi Gastrointestinal: normoactive bowel sounds, soft, non-tender abdomen Genitourinary: no bladder fullness, No au in urethra Skin: warm, normal color Musculoskeletal: full muscle strength ICD10 Worksheet Patient Problems: Problems Problem Status Onset Abdominal pain Acute Abdominal pain Acute Abdominal pain, chronic, right lower quadrant Acute Acute Crohn's disease Acute Altered mental status Acute Bronchitis Acute Constipation Acute Crohns disease Acute Crohns disease of small intestine Acute Fever Acute Intra-abdominal abscess Acute Malnutrition Acute Periumbilical hernia Acute Postoperative infection Acute Severe sepsis Acute Vomiting Acute Wound infection after surgery Acute
--- NOTE | 2018-06-13 16:27 | ASMTCMCOM ---
CM Note CM Note Notes: The [facility] cannot accept pt because there isn't a pharmacist there to adjust electrolytes. CM has a call out to Veronica Flores at [facility] (P#: [phone]). Referral sent out to [facility] to see if they have a partnership w/ [facility]. Pt will need daily RN to admin TPN for 2 weeks. CM to follow. Plan: TBD Date Signed: 06/13/2018 04:26 PM Electronically Signed By:YULI Cruz
--- NOTE | 2018-06-13 17:24 | GCON ---
DATE OF CONSULTATION: 06/13/2018 REASON FOR CONSULT: Gross hematuria. HISTORY OF PRESENT ILLNESS: Briefly, this is a 72-year-old female with a complicated surgical histor y mostly related to Crohn's disease. I see that she was originally seen with increasing fistula brooke juares from her abdominal fistula that began in March. She was evaluated by Dr. Mccain during this ad mission for a failing ostomy bag, infection and erythema around the fistula from her abdominal site. She also says that this is around the time that her gross hematuria started. Says it is bright red in color and heavy volume. She states that she may have had blood in her urine in the past, although she is not sure. Denies history of kidney stones or known bladder kidney cancer and is a heavy smok er. Reports about a 60 year smoking history current. No urinary frequency, urgency, burning. No bl adder discomfort. PAST SURGICAL/MEDICAL HISTORY: Crohn's disease, chronic pain syndrome, DDD, depression, enterocutane ous fistula, SBO ostomy, reversed ostomy, pulmonary nodule, bilateral breast augmentation, cervical d iskectomy, colectomy, laminectomy. SOCIAL HISTORY: . Lives in a townhouse. Still occasionally smokes cigarettes times about 6 0 years. Regular cannabis user. Denies alcohol. 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 ALLERGIES: Penicillin, sulfa, azathioprine, budesonide, furosemide, ertapenem, fentanyl, gabapentin, infliximab, morphine. HOME MEDICATIONS: Cymbalta, Lyrica. FAMILY HISTORY: Positive for cancer. REVIEW OF SYSTEMS: A 10-point review of systems negative except as mentioned in the HPI. PHYSICAL EXAMINATION: VITAL SIGNS: Blood pressure 106/60, heart rate 65, respirations 16, O2 96 on room air, temperature 36.5. GENERAL: This is a well-developed, well-nourished female in no acute di stress. HEENT: Normocephalic, atraumatic. Extraocular movements intact. NECK: Supple. No lympha denopathy. Trachea midline. RESPIRATORY: No accessory respiratory muscle use. CARDIAC: Regular r ate and rhythm. No obvious JVD. No lower extremity edema. GI: Abdomen is soft, nondistended. Sti ll has generalized mild erythema and healing ostomy site along with abdominal incisions. : No CVA tenderness. No bladder distention or tenderness to palpation. INTEGUMENT: No obvious rashes or le sions, other than mentioned for the abdominal fistula site. MUSCULOSKELETAL: Patient is examined wh ile supine, but moving upper extremities without difficulty. NEURO: She is alert and oriented. Aff ect appropriate to situation. LABORATORY DATA: White blood cell count 7.4, hematocrit 33.6, hemoglobin 10.5, platelets 435. Chemi stry: Sodium 141, potassium 3.7, chloride 109, carbon dioxide 23, BUN 18, creatinine 0.6, glucose 92 . Urinalysis is positive for blood. Urine culture did show Klebsiella, reason for hematuria. She a lso had a CT of the abdomen and pelvis done which noted no renal or ureteral stones, known 2.8 cm cys t in the right kidney, 1.6 cm cyst in the left kidney. Left kidney is malrotated, but no obvious deborah al lesions. ASSESSMENT: Gross hematuria. PLAN: Given significant smoking history and ongoing gross hematuria despite positive urine culture, we will arrange cystoscopy to further evaluate patient. This was discussed. Recommend that we mikey wheeler do this in the office. However, she requested it be done in the operating room for convenience p urposes and this is to be arranged today. Risks and benefits were reviewed with the patient in detai l and read allowed and consent signed. /[id number]/MODL
--- NOTE | 2018-06-13 19:34 | SOAPPROG ---
SOAP Progress Note Assessment/Plan: Assessment: 72 yo well known to me crohns with fistula MUCH improved since on TPN No longer draining. Skin care Plan to DC with TPN and in a week, can try clears Awaiting placement Plan: 06/13/18 19:33 Objective: Vital Signs Temp Pulse Resp BP Pulse Ox 37.1 C 85 16 99/75 L 94 06/13/18 14:45 06/13/18 14:45 06/13/18 14:45 06/13/18 14:45 06/13/18 14:45 Laboratory Results 06/12/18 05:55 06/12/18 05:55 06/12/18 06/13/18 06/14/18 05:59 05:59 05:59 Intake Total 3033 0 Output Total 1200 0 Balance 1833 0 PT 14.1 SEC (12.0-15.0) 06/12/18 05:55 INR 1.07 (0.83-1.16) 06/12/18 05:55 ICD10 Worksheet Patient Problems: Problems Problem Status Onset Abdominal pain Acute Abdominal pain Acute Abdominal pain, chronic, right lower quadrant Acute Acute Crohn's disease Acute Altered mental status Acute Bronchitis Acute Constipation Acute Crohns disease Acute Crohns disease of small intestine Acute Fever Acute Intra-abdominal abscess Acute Malnutrition Acute Periumbilical hernia Acute Postoperative infection Acute Severe sepsis Acute Vomiting Acute Wound infection after surgery Acute
[2018-06-13] MEDS: diphenhydrAMINE 25 MG CAP PO PRN (20:01)
[2018-06-13] MEDS: TPN W/ FAMOTIDINE 1 EA BAG IV SCH (21:37)
--- NOTE | 2018-06-14 10:05 | SOAPPROG ---
SOAP Progress Note Assessment/Plan: Assessment/Plan: 72yo F with Crohn's disease and a complicated surgical history , admitted with enterocutaneous fistula NPO and TPN - fistula has stopped draining skin healing well with barrier cream. Likely TPN x 2 weeks, then advance to clears Hematuria - cystoscopy yesterday, will need outpatient follow-up Appreciate hospitalists Dispo: working on placement - will need TPN. Case management working on SNF vs home with [facility]. Seen with Dr. Yee. S: no new complaints this am. fistula has stopped draining. Skin much improved O: Thin woman in NAD No increased WOB Abd with 2 enterocutaneous fistulas, no active drainage. Periwound erythema significantly improved No evidence of infection Multiple surgical scars Objective: Vital Signs Temp Pulse Resp BP Pulse Ox 36.4 C 68 16 103/64 98 06/14/18 07:43 06/14/18 07:43 06/14/18 07:43 06/14/18 07:43 06/14/18 07:43 Laboratory Results 06/12/18 05:55 06/14/18 05:20 06/13/18 06/14/18 06/15/18 05:59 05:59 05:59 Intake Total 0 Output Total 0 600 Balance 0 -600 PT 14.1 SEC (12.0-15.0) 06/12/18 05:55 INR 1.07 (0.83-1.16) 06/12/18 05:55 ICD10 Worksheet Patient Problems: Problems Problem Status Onset Abdominal pain Acute Abdominal pain Acute Abdominal pain, chronic, right lower quadrant Acute Acute Crohn's disease Acute Altered mental status Acute Bronchitis Acute Constipation Acute Crohns disease Acute Crohns disease of small intestine Acute Fever Acute Intra-abdominal abscess Acute Malnutrition Acute Periumbilical hernia Acute Postoperative infection Acute Severe sepsis Acute Vomiting Acute Wound infection after surgery Acute
[2018-06-14] MEDS: PREGABALIN 100 MG CAP PO SCH ×2 (10:34→21:36)
[2018-06-14] MEDS: DULoxetine 30 MG CAP PO SCH ×2 (10:34→21:36)
--- NOTE | 2018-06-14 11:18 | ASMTCMCOM ---
CM Note CM Note Notes: Spoke w/September RN and Rosalva from [facility], they can take pt with daily TPN. CM spoke w/Ashley at [facility], they would still like her to go to snf but pt declines and is adamant about returning home. Pt ambulates ind and has someone who will pick her up. Pt is ok to return home per surgeon. CM also sent referral to [facility] who supplies the nutrition. DC Plan: TBD Date Signed: 06/14/2018 11:17 AM Electronically Signed By:Martha Santacruz RN
--- NOTE | 2018-06-14 12:22 | ASMTCMCOM ---
CM Note CM Note Notes: Received call from Veronica at [facility], she states that they are contracted with [facility]. CM relayed information to Sarah at [facility]. Notified RN that pt will likely not dc until tomorrow since they need time to make TPN formula. Home care and MD notified. DC Plan: [facility] + [facility] Date Signed: 06/14/2018 12:22 PM Electronically Signed By:Martha Santacruz RN
--- NOTE | 2018-06-14 15:28 | HOSPPROG ---
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 No longer covering it with abd pads. appears to have closed dry continue tpn hematuria: Urine still red, no clots but clearly with hematuria. cystoscopy demonstrates this is coming from L kidney or ureter no bladder mass on cysto no L sided mass in kidney, no hydro, no stone rec outpt urology follow up + pANCA noted. likey 2/2 crohns anca vasculitis wouldn't be unilateral needs outpt ureteroscope to complete workup anemia: chronic and multifactorial with chronic GI losses from Crohn's, anemia of chronic disease, currently better than usual UTI- completed course of levaquin. Never had symptoms. Culture with GNR Crohn's disease: with multiple abdominal surgeries/bowel resections / that, previously required prolonged TPN, not currently on any meds for this specifically PPX- SCDs, lovenox Fluids- on TPN Lytes- WNL, monitor Nutrition- NPO now Cor- FUll Dispo-OK to go from HM perspective Subjective: case d/w kathy barclay. surgery PA. hematuria decreasing Objective: Vital Signs Temp Pulse Resp BP Pulse Ox 36.4 C 68 16 103/64 98 06/14/18 07:43 06/14/18 07:43 06/14/18 07:43 06/14/18 07:43 06/14/18 07:43 Laboratory Results 06/12/18 05:55 06/14/18 05:20 06/13/18 06/14/18 06/15/18 05:59 05:59 05:59 Intake Total 0 Output Total 0 600 Balance 0 -600 PT 14.1 SEC (12.0-15.0) 06/12/18 05:55 INR 1.07 (0.83-1.16) 06/12/18 05:55 - Physical Exam Constitutional: no apparent distress, appears nourished Eyes: PERRL, anicteric sclera Ears, Nose, Mouth, Throat: moist mucous membranes, hearing normal Cardiovascular: regular rate and rhythym, no murmur, rub, or gallop Respiratory: no respiratory distress, no rales or rhonchi Gastrointestinal: normoactive bowel sounds, soft, non-tender abdomen, other ( fistula dry) Genitourinary: No au in urethra Skin: warm, normal color Musculoskeletal: full muscle strength Neurologic: AAOx3 ICD10 Worksheet Patient Problems: Problems Problem Status Onset Abdominal pain Acute Abdominal pain Acute Abdominal pain, chronic, right lower quadrant Acute Acute Crohn's disease Acute Altered mental status Acute Bronchitis Acute Constipation Acute Crohns disease Acute Crohns disease of small intestine Acute Fever Acute Intra-abdominal abscess Acute Malnutrition Acute Periumbilical hernia Acute Postoperative infection Acute Severe sepsis Acute Vomiting Acute Wound infection after surgery Acute
[2018-06-14] MEDS: TPN W/ FAMOTIDINE 1 EA BAG IV SCH (21:35)
--- NOTE | 2018-06-15 07:47 | SOAPPROG ---
SOAP Progress Note Assessment/Plan: Assessment: 72 yo well known to me chrons with fistula - sealed now that NPO. hematuria - f/u with dr olson as outpatient Worsening depression - notified Dr. Winter MUCH improved since on TPN No longer draining. Skin care Plan to DC with TPN and in a week can try clears Spoke with SUPERVISOR [employer] at [facility] and pharmacy S: Feeling more overwhelmed today O: In street clothes. Appears more sad than yesterday Abdomen MUCH improved. Not draining CTAB Regular rate Plan: 06/13/18 19:33 06/15/18 14:47 Objective: Vital Signs Temp Pulse Resp BP Pulse Ox 36.8 C 69 18 105/49 L 95 06/14/18 22:50 06/14/18 22:50 06/14/18 22:50 06/14/18 22:50 06/14/18 22:50 Laboratory Results 06/12/18 05:55 06/14/18 05:20 06/14/18 06/15/18 06/16/18 05:59 05:59 05:59 Intake Total 756 Output Total 600 Balance 156 PT 14.1 SEC (12.0-15.0) 06/12/18 05:55 INR 1.07 (0.83-1.16) 06/12/18 05:55 ICD10 Worksheet Patient Problems: Problems Problem Status Onset Abdominal pain Acute Abdominal pain Acute Abdominal pain, chronic, right lower quadrant Acute Acute Crohn's disease Acute Altered mental status Acute Bronchitis Acute Constipation Acute Crohns disease Acute Crohns disease of small intestine Acute Fever Acute Intra-abdominal abscess Acute Malnutrition Acute Periumbilical hernia Acute Postoperative infection Acute Severe sepsis Acute Vomiting Acute Wound infection after surgery Acute
--- NOTE | 2018-06-15 07:49 | PDIAF ---
- Diagnosis Diagnosis: enterocutaneous fistula and hematuria Code Status: Full Code - Medication Management Discharge Medications: electronically signed and located in the Home Medication List. PICC Care - Routine: Yes - Orders Services needed: Home Care, Registered Nurse Home Care Face to Face: I certify that this patient was under my care and that I had the required [id number] encounter meeting the encounter requirements on the discharge day. My findings support the fact that the patient is homebound as defined in Home Care Face to Face Continued: CMS Chapter 7 Medicare Benefits Manual 30.1.1 , The condition of the patient is such that there exists a normal inability to leave home and consequently, leaving home would require a considerable and taxing effort. Isolation Type: None Diet Recommendation: other (NPO) Wound Care Instructions: barrier cream to abdomen while skin healing. Monitor 2 fistula sites Additional Instructions: Do not eat or drink by mouth except to take medications On Tuesday06/21/2018 may try some clear liquids. Start with a small amount like 4-6 oz. If no leaking, may try sips throughout the day. If leaking through fistula stop. Call office on Tuesday to discuss next steps. - Labs/Radiology BMP Date: 06/21/18 CBC w/diff Date: 06/21/18 - Follow Up Care Current Providers and Referrals: Leo Jackson MD [Medical Doctor] - follow up in 2 weeks Kassy Yee MD [Medical Doctor] - Patient,NotPresent [Primary Care Provider] -
[2018-06-15] MEDS: DULoxetine 30 MG CAP PO SCH (08:16)
[2018-06-15] MEDS: PREGABALIN 100 MG CAP PO SCH (08:16)
[2018-06-15 08:24] VITALS: BP 104/74
--- NOTE | 2018-06-15 12:37 | ASMTDCNOTE ---
Case Management Discharge Discharge Order Complete? Answers: Yes Patient to Obtain Answers: Other Notes: [facility] Transportation Arranged Answers: Taxi - Self Pay Transport will Pick (Date 06/15/2018 02:00 PM & Time) Faxed Final Orders Answers: Yes Agency/Facility Transfer Answers: Yes Report Printed & Faxed to Receiving Agency Discharge Comments Notes: D/w RN, pharmacist, and Sarah from [facility]. Pharmacist will titrate pt down on TPN until at zero and she will discharge around 2pm. [facility] and [facility] will be at pt's home at 5pm. Pt eager to return home, [facility] notified. Date Signed: 06/15/2018 12:36 PM Electronically Signed By:Martha Santacruz RN
--- NOTE | 2018-06-15 14:08 | ASMTLACE ---
LACE Length of stay for Answers: 4-6 days current admission Acuity / Level of Answers: Yes Care: Did the patient have an inpatient admission? Comorbidities - select Answers: Opioid dependence all that apply / Chronic pain Other Notes: Crohn's disease # of Emergency department Answers: 3-4 visits in the last 6 months Score: 15 Date Signed: 06/15/2018 02:07 PM Electronically Signed By:Martha Santacruz RN
--- NOTE | 2018-06-16 13:33 | ASDISCHSUM ---
Discharge Information Plan Status:Home with Home Health Medically Cleared to Leave: Discharge Date:06/15/2018 02:06 PM CM D/C Disposition:Home Health Service ADT D/C Disposition:Home Health Service Projected Discharge Date:06/12/2018 11:00 AM Transportation at D/C:Friend Discharge Delay Reason: Follow-Up Date:06/12/2018 11:00 AM Discharge Slot: Final Diagnosis: Placement Information Referral Type:*Fdc/SNF Referral ID:[id number] Provider Name: Address 1: Phone Number: Address 2: Fax Number: City: Selection Factors: State: Referral Type:*Home Health Care Services Referral ID:[id number] Provider Name: Address 1: Phone Number: Address 2: Fax Number: City: Selection Factors: State: Referral Type:Home Infusion Referral ID:[id number] Provider Name:[facility] [place] Address 1:[address] [place] [address] Address 2: City:[place] Selection Factors: State:[place] Patient Contact Information Contact Name:JOAQUINA Relationship:Daughter Address:[address] City:[facility] Phone: State/Zip Code:[place] [address] Email: Financial Information Financial Class:HMO and PPO Plans Primary Plan Desc:[facility] Primary Plan Number:[id number] Secondary Plan Desc: Secondary Plan Number: Assessment Information LACE LACE Length of stay for Answers: 4-6 days current admission Acuity / Level of Answers: Yes Care: Did the patient have an inpatient admission? Comorbidities - select Answers: Opioid dependence all that apply / Chronic pain Other Notes: Crohn's disease # of Emergency department Answers: 3-4 visits in the last 6 months Score: 15 Date Signed: 06/15/2018 02:07 PM Electronically Signed By:Martha Santacruz RN [facility] CM Progress Note CM Note CM Note Notes: Pt is a 72 y/o female admitted for abdominal fistula, hematura and lgib. Pt is a [facility] client. Wound care and OT has been ordered. CM spoke to Zamzam at [facility] (P#: [phone]). Pt goes to the [facility] program 2x/week (Tuesday and Tuesday). Pts PCP is Dr. Gallagher. Needs are TBD at this time. CM to follow. Plan: [facility] Date Signed: 06/09/2018 12:19 PM Electronically Signed By:YULI Cruz [facility] CM Progress Note CM Note CM Note Notes: CM discussed patient needs with LUCAS Carl. Patient went for CT today, currently on TPN. Likely to discharge home independent on Tuesday. CM to follow. Plan: independent Date Signed: 06/11/2018 04:08 PM Electronically Signed By:Nikki Sofia [facility] CM Progress Note CM Note CM Note Notes: CM spoke to LUCAS Carl regarding d/c POC. Pt will need to d/c on TPN. Pt is agreeable to surgery's recommendation of going to a snf. CM met w/ pt and she would like to d/c to [facility]. Referral sent to [facility]. Pt does not need 3 midnights since pt is a [facility] client. CM to follow. Plan: SNF Date Signed: 06/12/2018 02:39 PM Electronically Signed By:YULI Cruz [facility] Progress Note CM Note CM Note Notes: Pt changed her mind about going to [facility]. Pt reports that she has been in the past and had a bad experience. Pt is requesting to go to [facility]. CM spoke w/ Lana Flores and she said that [facility] Referral sent to [facility]. Date Signed: 06/12/2018 03:43 PM Electronically Signed By:YULI Cruz [facility] Progress Note CM Note CM Note Notes: [facility] cannot accept pt because there isn't a pharmacist there to adjust electrolytes. CM has a call out to Veronica Flores at [facility] (P#: [phone]). Referral sent out to [facility] to see if they have a partnership w/ [facility]. Pt will need daily RN to admin TPN for 2 weeks. CM to follow. Plan: TBD Date Signed: 06/13/2018 04:26 PM Electronically Signed By:YULI Cruz [facility] CM Progress Note CM Note CM Note Notes: Spoke LUCAS and Rosalva from [facility], they can take pt with daily TPN. CM spoke w/Ashley at [facility], they would still like her to go to snf but pt declines and is adamant about returning home. Pt ambulates ind and has someone who will pick her up. Pt is ok to return home per surgeon. [facility] also sent referral to [facility] who supplies the nutrition. DC Plan: TBD Date Signed: 06/14/2018 11:17 AM Electronically Signed By:Martha Santacruz RN [facility] CM Progress Note CM Note CM Note Notes: Received call from Veronica at [facility], she states that they are contracted with [facility]. CM relayed information to Sarah at [facility]. Notified RN that pt will likely not dc until tomorrow since they need time to make TPN formula. Home care and MD notified. DC Plan: [facility] + [facility] Date Signed: 06/14/2018 12:22 PM Electronically Signed By:Martha Santacruz RN Case Management Discharge Plan Note Case Management Discharge Discharge Order Complete? Answers: Yes Patient to Obtain Answers: Other Notes: [facility] Transportation Arranged Answers: Taxi - Self Pay Transport will Pick (Date 06/15/2018 02:00 PM & Time) Faxed Final Orders Answers: Yes Agency/Facility Transfer Answers: Yes Report Printed & Faxed to Receiving Agency Discharge Comments Notes: D/w RN, pharmacist, and Sarah from [facility]. Pharmacist will titrate pt down on TPN until at zero and she will discharge around 2pm. [facility] and [facility] will be at pt's home at 5pm. Pt eager to return home, [facility] notified. Date Signed: 06/15/2018 12:36 PM Electronically Signed By:Martha Santacruz RN Intervention Information
== END 2018-06-15 14:06 | disposition home health service (06) | DRG 394 ==
LOC: F3E 13:45 → INTOOBSV 13:45 → OBSVTOIN 06-09 20:31
PROVIDERS: ADMIT Surgery; ATTEND Surgery
PROC: 02HV33Z Insertion of Infusion Device into Superior Vena Cava, Percutaneous Approach (ICD-10-PCS; principal; 2018-06-09)
PROC: 0TJB8ZZ Inspection of Bladder, Via Natural or Artificial Opening Endoscopic (ICD-10-PCS; 2018-06-13)
DX: K63.2 Fistula of intestine (principal); N39.0 Urinary tract infection, site not specified; R31.9 Hematuria, unspecified; F32.9 Major depressive disorder, single episode, unspecified; K50.90 Crohn's disease, unspecified, without complications; F17.210 Nicotine dependence, cigarettes, uncomplicated; R91.1 Solitary pulmonary nodule; D53.9 Nutritional anemia, unspecified; G89.29 Other chronic pain
CPT/HCPCS: C1751; G0378; J1170; J1956; J2060; Q9967

== ENCOUNTER 2018-06-20 10:04 | Emergency (ER) | payer OTHER ==
--- NOTE | 2018-06-20 10:00 | EDPHY ---
H & P Time Seen by Provider: 06/20/18 10:04 Constitutional: Initial Vital Signs Temperature (C) 36.6 C 06/20/18 10:08 Heart Rate 101 H 06/20/18 10:08 Respiratory Rate 18 06/20/18 10:08 Blood Pressure 101/73 06/20/18 10:08 O2 Sat (%) 96 06/20/18 10:08 O2 Delivery Mode Room Air Allergies/Adverse Reactions: Penicillins Allergy (Severe, Verified 06/20/18 10:14) SEIZURES Sulfa (Sulfonamide Antibiotics) Allergy (Severe, Verified 06/20/18 10:14) NAUSEA azathioprine Allergy (Unknown, Verified 06/20/18 10:14) Rash budesonide Allergy (Unknown, Verified 06/20/18 10:14) Rash cefuroxime Allergy (Unknown, Verified 06/20/18 10:14) Other-Enter Comments ertapenem Allergy (Unknown, Verified 06/20/18 10:14) Other-Enter Comments fentanyl Allergy (Unknown, Verified 06/20/18 10:14) MEMORY LOSS,WEIGHT LOSS, MEMORY LOSS gabapentin Allergy (Unknown, Verified 06/20/18 10:14) Rash infliximab Allergy (Unknown, Verified 06/20/18 10:14) Itching mesalamine Allergy (Unknown, Verified 06/20/18 10:14) Rash morphine Allergy (Unknown, Verified 06/20/18 10:14) PT BECOMES "MEAN" azathioprine sodium [From Imuran] Allergy (Verified 06/20/18 10:14) Rash azathioprine sodium Allergy (Unknown, Uncoded 06/15/18 11:27) Rash Home Medications: Medication Instructions Recorded DULoxetine [Cymbalta 30 MG (*)] 30 mg PO BID 04/12/18 Pregabalin [Lyrica 100mg (*)] 100 mg PO BID 04/12/18 TPN W/ Famotidine 1 ea IV DAILY #30 bag 06/15/18 [Hyperalimentation] Dilaudid 2 mg (*) 06/20/18 Medical Decision Making - Diagnostics Imaging: I viewed and interpreted images myself ED Course/Re-evaluation: CHIEF COMPLAINT: Back pain HISTORY OF PRESENT ILLNESS: The patient is a 72 y/o female with a history of scoliosis arriving via EMS complaining of worsening back pain for the past year. The patient has a history of Crohn's disease complicated by multiple intra-abdominal abscesses, multiple surgeries and multiple attempted drainages. She presents to the ED today with a complaint of increasing back pain due to carrying around her abdominal drain. Due to this back pain she has taken PO hydromorphone which have not alleviated her symptoms. She has not had any imaging for the back pain. She is not complaining of abdominal pain at this time. The patient is typically followed by Dr. Yee. She denies fever, headache, chest pain, shortness of breath, vomiting or hematemesis, numbness, paresthesias. REVIEW OF SYSTEMS: A comprehensive 10 system review of systems is otherwise negative aside from elements mentioned in the history of present illness and medical decision making. PHYSICAL EXAM: HR, BP, O2 Sat, RR. Temp noted General Appearance: Alert, well hydrated, appropriate, and non-toxic appearing. Head: Atraumatic without scalp tenderness or obvious injury Eyes: Pupils equal, round, reactive to light and accommodation, EOMI, no trauma , no injection. Ears: Clear bilaterally, no perforation, normal landmarks Nose: Atraumatic, no rhinorrhea, clear. Throat: There is no erythema or exudates, no lesions, normal tonsils, mucus membranes moist. Neck: Supple, 2+ carotid upstroke, nontender, no lymphadenopathy. Respiratory: No retractions, no distress, no wheezes, and no accessory muscle use. Lungs are clear to auscultation bilaterally. Cardiovascular: Regular rate and rhythm, no murmurs, rubs, or gallops. Bilateral carotid, radial, dorsalis pedis, and posterior tibial pulses intact. Good capillary refill all extremities. Gastrointestinal: Abdomen is soft, nontender, non-distended, no masses, no rebound, no guarding, no peritoneal signs. Musculoskeletal: Normal active ROM of all extremities, atraumatic. Neurological: Alert, appropriate, and interactive. The patient has normal DTRs and non-focal cranial nerves, motor, sensory, and cerebellar exam. Skin: No rashes, good turgor, no nodules on palpation. Past medical history: Crohns disease, scoliosis, SBO Past surgical history: Bowel resection, c-spine fusion, tubal ligation, ostomy, reverse ostomy, "13 abdominal surgeries in 15 months" Family history: Denies Social history: Lives in [facility] DIAGNOSTICS/PROCEDURES/CRITICAL CARE TIME: Lumbar spine x-ray: Severe scoliosis, no acute findings DIFFERENTIAL DIAGNOSIS: The differential diagnosis for the patient's back pain included but was not limited to scoliosis, musculoskeletal pain, epidural abscess, herniated disk, spinal fracture, and intra-abdominal causes including urinary system. MEDICAL DECISION MAKING: The patient is a 72 y/o female with a history of scoliosis, Crohn's disease complicated by multiple intra-abdominal abscesses, multiple surgeries and multiple attempted drainages arriving via EMS presenting with worsening back pain for the past year which she believes is due to carrying around her abdominal drain. Hydromorphone has not alleviated her symptoms and she has not had any imaging studies performed for this back pain. Lumbar spine x-ray ordered. 1050: I reviewed patient's lumbar spine x-ray which reveals severe scoliosis, there are no acute findings. Dr. Cheung, radiologist, agrees with my findings. 1105: Reassessed patient and discussed imaging findings. She is comfortable with being discharged home. I have referred her to Dr. Rosenbaum, neurosurgeon. I will not prescribe her any pain medication as she already has a hydromorphone prescription. Return precautions provided; patient is comfortable with this plan. Departure - Departure Disposition: Home, Routine, Self-Care Clinical Impression: Scoliosis Qualifiers: Scoliosis type: unspecified scoliosis Spinal region: thoracolumbar Qualified Code(s): M41.9 - Scoliosis, unspecified Chronic back pain Qualifiers: Back pain location: low back pain Back pain laterality: midline Sciatica presence: without sciatica Qualified Code(s): M54.5 - Low back pain Condition: Good Instructions: Acute Low Back Pain (ED), Chronic Back Pain (DC), Back Pain (ED) Additional Instructions: 1. Follow up with a neurosurgeon in the next week. 2. Return to the emergency department for severe pain, fever, numbness, difficulty walking, change in location or nature of pain or other concerns. Referrals: Cherelle Welsh MD [Primary Care Provider] - As per Instructions Jesús Rosenbaum MD [Medical Doctor] - As per Instructions Report Scribed for: Jorge Medina Report Scribed by: Kaitlyn Licona Date of Report: 06/20/18 Time of Report: 10:01
[2018-06-20 11:38] VITALS: BP 101/72
== END 2018-06-20 11:44 | disposition home or self-care (01) ==
LOC: EDBD → EDUNIT#
DX: M54.5 Low back pain (principal); M41.9 Scoliosis, unspecified; K50.90 Crohn's disease, unspecified, without complications; Z90.49 Acquired absence of other specified parts of digestive tract; Z79.899 Other long term (current) drug therapy

== ENCOUNTER 2018-07-11 18:58 | Inpatient (IN) | payer OTHER ==
[2018-07-11] MEDS ORDERED: NS 500 ML IV ONE (19:14)
[2018-07-11] MEDS ORDERED: NS 1,000 ML IV ONE (19:28)
--- NOTE | 2018-07-11 19:33 | EDPHY ---
H & P Stated Complaint: N/V/D back pain Time Seen by Provider: 07/11/18 19:29 HPI/ROS: CHIEF COMPLAINT: Diarrhea HISTORY OF PRESENT ILLNESS: 72-year-old female with Crohn's disease presents with profuse diarrhea. Onset of diarrhea 3 hr ago. Multiple episodes of watery diarrhea, associated with mild abdominal cramping and vomiting. No associated fever. Does not feel weak or dizzy. No recent antibiotics and no prior history of Cdif colitis. On TPN for several months via PICC line. Complains of low back pain secondary to caring a backpack containing TPN. REVIEW OF SYSTEMS: complete 10 point ROS reviewed and is negative except for the noted elements in the HPI - Personal History Current Tetanus/Diphtheria Vaccine: Yes Current Tetanus Diphtheria and Acellular Pertussis (TDAP): Yes Tetanus Vaccine Date: < 10 years - Medical/Surgical History Hx Asthma: No Hx Chronic Respiratory Disease: No Hx Diabetes: No Hx Cardiac Disease: No Hx Renal Disease: No Hx Cirrhosis: No Hx Alcoholism: No Hx HIV/AIDS: No Hx Splenectomy or Spleen Trauma: No Other PMH: Crohns, DD scoliosis, SBO. s/p bowel resection, breast augmentation , c-spine fusion, tubal ligation, ostomy, reverse ostomy, "13 abdominal surgeries in 15 months" - Social History Smoking Status: Current some day smoker Alcohol Use: Sober Drug Use: None - Physical Exam Exam: General Appearance: Alert, pleasant and talkative Eyes: Pupils equal and round, no conjunctival pallor ENT, Mouth: Mucous membranes moist Neck: Normal inspection Respiratory: Lungs are clear to auscultation Cardiovascular: Regular rate and rhythm Gastrointestinal: Abdomen is soft, mild diffuse tenderness Neurological: A&O, nonfocal exam Skin: Warm and dry, no rash Extremities: Normal inspection Psychiatric: Mood and affect normal Constitutional: Initial Vital Signs Temperature (C) 37.4 C 07/11/18 18:58 Heart Rate 101 H 07/11/18 18:58 Respiratory Rate 20 07/11/18 18:58 Blood Pressure 68/32 L 07/11/18 18:58 O2 Sat (%) 92 07/11/18 18:58 O2 Delivery Mode Nasal Cannula O2 (L/minute) 2 Allergies/Adverse Reactions: Penicillins Allergy (Severe, Verified 06/20/18 10:14) SEIZURES Sulfa (Sulfonamide Antibiotics) Allergy (Severe, Verified 06/20/18 10:14) NAUSEA azathioprine Allergy (Unknown, Verified 07/11/18 19:05) Rash budesonide Allergy (Unknown, Verified 07/11/18 19:05) Rash cefuroxime Allergy (Unknown, Verified 07/11/18 19:05) Other-Enter Comments ertapenem Allergy (Unknown, Verified 07/11/18 22:36) Other-Enter Comments fentanyl Allergy (Unknown, Verified 07/11/18 19:05) MEMORY LOSS,WEIGHT LOSS, MEMORY LOSS gabapentin Allergy (Unknown, Verified 07/11/18 19:05) Rash infliximab Allergy (Unknown, Verified 07/11/18 19:05) Itching mesalamine Allergy (Unknown, Verified 07/11/18 19:05) Rash morphine Allergy (Unknown, Verified 07/11/18 19:05) PT BECOMES "MEAN" tramadol Allergy (Unknown, Verified 07/11/18 22:35) Unknown azathioprine sodium [From Imuran] Allergy (Verified 07/11/18 19:05) Rash azathioprine sodium Allergy (Unknown, Uncoded 07/11/18 19:05) Rash Home Medications: Medication Instructions Recorded Pregabalin [Lyrica 100mg (*)] 100 mg PO 14,21 04/12/18 TPN W/ Famotidine 1 ea IV DAILY #30 bag 06/15/18 [Hyperalimentation] DULoxetine [Cymbalta 30 MG (*)] 30 mg PO BID 07/11/18 Pregabalin [Lyrica 100mg (*)] 200 mg PO DAILY 07/11/18 Medical Decision Making - Diagnostics EKG Interpretation: EKG interpreted by me reveals sinus tachycardia, rate 139, prolonged QT interval. Interpretation: Abnormal EKG Imaging Results: Chest X-Ray 07/11/18 21:09 Impression: 1. Query airways disease. 2. Basilar atelectasis is suspected. 3. Opacity over the right lung is presumably related to an overlying breast prosthesis. If the patient's condition allows, PA and lateral chest radiography could be considered for further assessment. ED Course/Re-evaluation: This patient presents with profuse diarrhea and dehydration. Initial blood pressure is 68/32, pt alert and talkative, asking for pain meds. Abdominal exam is benign. IV NS 1 liter ordered, will reassess. GI pathogen panel ordered. 1930: BP 92/[address] Yanet Gallagher, pt's PCP: pt just seen by Dr. Gallagher 30 min prior to onset of sx, pt well appearing and hungry at that time. Pt is seen by home health care daily. On Lyrica for chronic pain, 200mg in am, 100mg in afternoon and tad. Multiple adverse reactions to meds/abx. 2010: Pt febrile to 39, BP 121/48. Blood cultures and lactate ordered. 2145: 85/53, HR 122, has received fluids per the sepsis protocol. Lactate 2.4, repeat lactate 2.8. Levophed drip initiated. Pt has a PICC line in place, will use PICC line for Levophed. Increasing abd distention, abd is diffusely tender (increased tenderness from prior exam), CT abd/pelvis ordered to r/o intraabd infection, SBO, other etiology. The hospitalist service was consulted and will admit the patient to the ICU for septic shock. Concern for Cdif colitis, will hold antibiotics pending GI pathogen panel. 2230: Pt seen in ED by Dr. Price, discussion/decision to start abx, although we know that this may worsen pt's condition if Cdif is etiology. CT/stool studies pending on transfer to ICU. This pt utilized 45 minutes of critical care time by me exclusive of unbundled procedures. Time spent in serial reassessments, discussions with pt and consultants, ordering/review of multiple lab and imaging studies, medication decisions. Differential Diagnosis: Differential diagnosis includes though it is not limited to Cdif colitis, abscess, appendicitis, cholecystitis, diverticulitis, pyelonephritis, bowel perforation, small bowel obstruction. - Data Points Laboratory Results: Laboratory Results 07/11/18 19:19 07/11/18 19:19 Microbiology Results: MICROBIOLOGY 07/11/18 19:52 Stool Gastrointestinal Tract Panel (PCR) - Final No Organism Detected By Pcr Medications Given: Acetaminophen (Tylenol) 650 mg PO Q4HRS PRN PRN Reason: Pain, Mild/Fever, Can Take PO Stop: 01/08/19 00:00 Last Admin: 07/12/18 11:59 Dose: 650 mg Enoxaparin Sodium (Lovenox) 30 mg SC DAILY ROLANDO Stop: 01/08/19 08:59 Last Admin: 07/12/18 11:57 Dose: 30 mg Hydrocortisone (Solucortef) 100 mg IVP Q12H ROLANDO Stop: 07/13/18 16:16 Last Admin: 07/12/18 04:56 Dose: 100 mg Hydromorphone HCl (Dilaudid) 0.2 - 0.4 mg IVP Q4HRS PRN PRN Reason: Pain, Severe Unable to Take PO Stop: 07/22/18 00:00 Last Admin: 07/12/18 11:57 Dose: 0.4 mg Cefepime HCl 2 gm/ Sodium (Chloride) 100 mls @ 200 mls/hr IV Q12H ROLADNO PRN Reason: Protocol Stop: 08/10/18 23:29 Last Admin: 07/12/18 11:56 Dose: 100 mls Metronidazole/Sodium Chloride (Flagyl 500 Mg (Premix)) 100 mls @ 100 mls/hr IV Q8H ROLANDO PRN Reason: Protocol Stop: 08/10/18 23:29 Last Admin: 07/12/18 08:10 Dose: 100 mls Sodium Chloride (Ns) 1,000 mls @ 200 mls/hr IV CONT ROLANDO Stop: 01/08/19 00:00 Last Admin: 07/12/18 08:10 Dose: 1,000 mls Vasopressin 25 unit/ Sodium (Chloride) 251.25 mls @ 24 mls/hr IV CONT ROLANDO Stop: 01/08/19 00:14 Last Admin: 07/12/18 11:56 Dose: 251.25 mls Vancomycin HCl 750 mg/ (Dextrose) 150 mls @ 150 mls/hr IV Q24H ROLANDO Stop: 08/11/18 01:29 Last Admin: 07/12/18 02:00 Dose: 150 mls Norepinephrine 16 mg/ Sodium (Chloride) 266 mls @ 0 mls/hr IV CONT ROLANDO; Per Protocol PRN Reason: Protocol Stop: 01/08/19 04:29 Last Admin: 07/12/18 04:47 Dose: 266 mls Lorazepam (Ativan) 0.5 - 1 mg PO Q4HRS PRN PRN Reason: Anxiety, Able to Take PO Stop: 01/08/19 10:58 Last Admin: 07/12/18 11:56 Dose: 0.5 mg Discontinued Medications Acetaminophen (Tylenol) 650 mg PO EDNOW ONE Stop: 07/11/18 20:12 Last Admin: 07/11/18 20:26 Dose: 650 mg Hydromorphone HCl (Dilaudid) 0.4 mg IVP ONCE ONE Stop: 07/12/18 02:01 Last Admin: 07/12/18 02:39 Dose: 0.4 mg Sodium Chloride (Ns) 500 mls @ 1,000 mls/hr IV EDNOW ONE PRN Reason: Protocol Stop: 07/11/18 19:43 Last Admin: 07/11/18 19:44 Dose: 500 mls Sodium Chloride (Ns) 1,000 mls @ 0 mls/hr IV EDNOW ONE; Wide Open PRN Reason: Protocol Stop: 07/11/18 19:29 Last Admin: 07/11/18 19:20 Dose: 1,000 mls Sodium Chloride (Ns) 1,400 mls @ 2,800 mls/hr 30 ml/kg infuse over 30 min ( 1400 ml) IV EDNOW ONE PRN Reason: Protocol Stop: 07/11/18 21:37 Last Admin: 07/11/18 21:16 Dose: 1,000 mls Norepinephrine 4 mg/ Sodium (Chloride) 504 mls @ 0 mls/hr IV EDNOW ONE; Titrate PRN Reason: Protocol Stop: 07/11/18 21:51 Last Admin: 07/11/18 22:22 Dose: 504 mls Sodium Chloride (Ns) 1,000 mls @ 6,000 mls/hr IV ONCE ONE Stop: 07/12/18 00:11 Last Admin: 07/12/18 00:00 Dose: 1,000 mls Norepinephrine 4 mg/ Sodium (Chloride) 504 mls @ 0 mls/hr IV CONT ROLANDO; Per Protocol PRN Reason: Protocol Stop: 01/08/19 02:29 Last Admin: 07/12/18 02:21 Dose: 504 mls Morphine Sulfate (Morphine) 4 mg IVP EDNOW ONE Stop: 07/11/18 20:02 Last Admin: 07/11/18 20:06 Dose: 4 mg Vancomycin HCl (Vancocin Oral Liquid) 125 mg PO QID ROLANDO PRN Reason: Protocol Stop: 08/11/18 05:59 Last Admin: 07/12/18 05:47 Dose: 125 mg Departure - Departure Disposition: [facility] Acute Clinical Impression: Septic shock Crohns disease of small intestine Qualifiers: Digestive disease complication type: unspecified complication Qualified Code(s) : K50.019 - Crohn's disease of small intestine with unspecified complications Condition: Critical
[2018-07-11 19:35] LABS: PLATELET COUNT 241 10^3/uL (150-400)
[2018-07-11] MEDS ORDERED: ACETAMINOPHEN 325 MG TAB PO ONE (20:11)
[2018-07-11] MEDS ORDERED: NS 1,400 ML IV ONE (21:08)
[2018-07-11] MEDS ORDERED: NOREPINEPHRINE BITARTRATE 4 MG in NS 500 ML IV ONE (21:50)
[2018-07-11] MEDS ORDERED: IOPAMIDOL (ISOVUE 370) 100 ML BTL IV ONE (22:03)
--- NOTE | 2018-07-11 23:15 | CPEKG ---
Test Reason : OPEN Blood Pressure : / mmHG Vent. Rate : 139 BPM Atrial Rate : 139 BPM P-R Int : 096 ms QRS Dur : 085 ms QT Int : 329 ms P-R-T Axes : -08 081 060 degrees QTc Int : 501 ms Sinus tachycardia Borderline right axis deviation Prolonged QT interval Confirmed by Teresita Proctor ([id number]) on 07/11/2018 11:15:37 PM Referred By: Confirmed By:Teresita Proctor
[2018-07-11] MEDS ORDERED: VANCOMYCIN HCL/NORMAL SALINE 250 ML IV SCH (23:45)
[2018-07-11] MEDS: CEFEPIME HCL 2 GM in NS 100 ML IV SCH (23:58)
[2018-07-12] MEDS ORDERED: PROMETHAZINE HCL 25 MG/ML INJ IVP PRN
[2018-07-12] MEDS ORDERED: ONDANSETRON DISINTEGRATING 4 MG TAB PO PRN
[2018-07-12] MEDS ORDERED: NS 1,000 ML IV ONE (00:02)
[2018-07-12] MEDS ORDERED: HYDROmorphONE/DILAUDID 1 MG/ML INJ ONE (00:08)
--- NOTE | 2018-07-12 00:43 | POSTOPPROG ---
Post Op Note Date of Operation: 07/12/18 Surgeon: Bar Santizo Anesthesia: Local (Specify) (5cc 1% lidocaine) Pre-op Diagnosis: sepsis, inadequate access for pressors Post-op Diagnosis: sepsis, inadequate access for pressors Indication: sepsis, inadequate access for pressors Procedure: left subclavian central line Findings: sepsis, inadequate access for pressors Inf/Abcess present in the surg proc area at time of surgery?: No EBL: Minimal Total fluids administered: NA Complications: none Specimen(s): none
[2018-07-12] MEDS: VANCOMYCIN 750 MG in D5W 150 ML IV SCH (02:00)
[2018-07-12] MEDS ORDERED: HYDROmorphONE/DILAUDID 1 MG/ML INJ IVP ONE (02:00)
[2018-07-12] MEDS: VASOPRESSIN 25 UNIT in NS 250 ML IV SCH ×3 (02:30→23:08)
[2018-07-12] MEDS ORDERED: NOREPINEPHRINE BITARTRATE 4 MG in NS 500 ML IV SCH (02:30)
[2018-07-12] MEDS: NOREPINEPHRINE BITARTRATE 16 MG in NS 250 ML IV SCH ×2 (04:47→13:40)
[2018-07-12] MEDS: HYDROCORTISONE 100 MG/2 ML VIAL IVP SCH ×2 (04:56→15:50)
[2018-07-12] MEDS ORDERED: VANCOMYCIN 125 MG/2.5 ML UDL PO SCH (06:00)
[2018-07-12] MEDS: HYDROmorphONE/DILAUDID 1 MG/ML INJ IVP PRN ×5 (06:06→21:06)
[2018-07-12 06:33] LABS: PLATELET COUNT 262 10^3/uL (150-400)
[2018-07-12 06:34] LABS: INR 1.41 (0.83-1.16); PROTIME(PATIENT) 17.4 SEC (12.0-15.0)
[2018-07-12] MEDS: NS 1,000 ML IV SCH ×2 (08:10)
--- NOTE | 2018-07-12 08:18 | GOP ---
DATE OF OPERATION: 07/12/2018 SURGEON: Bar Santizo MD ANESTHESIA: Local (5 cc 1% xylocaine). PREOPERATIVE DIAGNOSIS: Sepsis with inadequate access for pressors. POSTOPERATIVE DIAGNOSIS: Sepsis with inadequate access for pressors. PROCEDURE PERFORMED: Placement of left subclavian central line. FINDINGS: Same. SPECIMENS: There was no specimen. ESTIMATED BLOOD LOSS: Minimal. She has been receiving fluid boluses. INDICATIONS: Same. DESCRIPTION OF PROCEDURE: A surgical consent was obtained. The procedure was verbally discussed with the patient. She has a right PICC line. Her left chest was carefully prepped and draped. Jugular venous distention is noted when she is placed in Trendelenburg. A full barrier drape was used. The skin was anesthetized with 1% Xylocaine. On the 2nd pass of a thin-walled needle, the vein was accessed. The bevel was turned 90 degrees counter clockwise so it was directed inferiorly. A guidewire was carefully passed. The skin was incised. A dilator was placed. The dilator was removed. A triple-lumen catheter which has had a Hep-Lock adapter placed on both the blue and white hubs is now brought to the field. The blue and white hubs have been flushed with saline. The catheter was advanced over the guidewire to 17 cm. Guidewire was removed. Good blood return was obtained. A third Hep-Lock adaptor was placed. The line was sutured in position. It was now flushed. A Biopatch was placed. A second suture was used to secure to the anterior chest wall. A Tegaderm was placed over the central line. An x-ray is pending. COMPLICATIONS: There were no complications. /[id number]/MODL MTDD
[2018-07-12] MEDS: CEFEPIME HCL 2 GM in NS 100 ML IV SCH ×2 (11:56→23:12)
[2018-07-12] MEDS: LORazepam 1 MG TAB PO PRN ×3 (11:56→23:17)
[2018-07-12] MEDS: ENOXAPARIN 30 MG/0.3 ML SYR SC SCH (11:57)
[2018-07-12] MEDS: ACETAMINOPHEN 325 MG TAB PO PRN (11:59)
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
--- NOTE | 2018-07-12 12:36 | ASMTCASEMG ---
Living Arrangements What is your living Answers: With Partner arrangement? Who do you live with? Type Of Residence What kind of residence do Answers: Apartment you live in? Discharge Plan Comments Coordination Status Comments Notes: Patient is a 72yo single female with a partner who has had multiple admissions with [facility]. She has a hx of Crohn's disease and presents with profuse diarrhea and abdominal cramping. Patient admitted for bronchitis, malnutrition, Crohn's, intra-abdominal abscess, and altered mental status. OT/PT evals have been ordered. Patient has [employer] insurance. The social media marketing specialist is Veronica ([phone]). CM will follow. Date Signed: 07/12/2018 12:35 PM Electronically Signed By:Joselin Bowling LCSW
--- NOTE | 2018-07-12 12:53 | HOSPPROG ---
Hospitalist Progress Note Assessment/Plan: 72yo F with Crohn's s/p bowel resection with multiple complications including enterocutaneous fistula and subsequent surgeries here with septic shock. 1. Septic shock: Suspect intra-abdominal source, likely peritonitis. - On levophed and vasopressin in addition to hydrocortisone - Continue cefepime, flagyl, vancomycin - Low threshold to add anti-fungal coverage if worsening - Follow cultures. Peel off vanco if no MRSA at 48 hours 2. Abdominal distention: Small ascites on initial CT which has likely increased in size with fluid resuscitation. - Hold on paracentesis 3. Transaminitis: Likely r/t shock liver. - Trend daily 4. Hypoxia: Due to compressive atelectasis from abdominal distention - Wean O2 as able 5. Leukocytosis: Impressive jump in setting of infection and steroids. 6. Crohn's disease with multiple complications - Has met with palliative in the past. Will monitor clinical course over coming days. If declining, would be hospice appropriate VTE ppx: LMWH Code: DNR Dispo: Remain inpatient, critically ill on pressors I spent a total of 35 minutes of critical care time assessing patient. Subjective: Tearful. Not wanting to be in the hospital again or go through invasive measures. Complaining of abdominal swelling and some shortness of breath. Objective: Vital Signs Temp Pulse Resp BP Pulse Ox 37.7 C 94 12 106/63 92 07/12/18 07:00 07/12/18 07:00 07/12/18 07:00 07/12/18 07:00 07/12/18 07:00 Laboratory Results 07/12/18 06:10 07/12/18 06:10 07/11/18 07/12/18 07/13/18 05:59 05:59 05:59 Intake Total 6563 Output Total 550 Balance 6013 PT 17.4 SEC (12.0-15.0) H 07/12/18 06:10 INR 1.41 (0.83-1.16) H 07/12/18 06:10 - Physical Exam Constitutional: uncomfortable Eyes: PERRL, anicteric sclera, EOMI Ears, Nose, Mouth, Throat: moist mucous membranes, hearing normal, ears appear normal, no oral mucosal ulcers Cardiovascular: tachycardia, No edema Respiratory: no rales or rhonchi, other (tachypneic), No expiratory wheeze Gastrointestinal: tenderness, distension, other (no drainage from fistula site) Skin: no rashes or abrasions, no fluctuance, no induration Musculoskeletal: generalized weakness Neurologic: AAOx3 Psychiatric: interacting appropriately ICD10 Worksheet Patient Problems: Problems Problem Status Onset Crohns disease of small intestine Acute Septic shock Acute Abdominal pain Acute Abdominal pain Acute Abdominal pain, chronic, right lower quadrant Acute Acute Crohn's disease Acute Altered mental status Acute Bronchitis Acute Constipation Acute Crohns disease Acute Fever Acute Intra-abdominal abscess Acute Malnutrition Acute Periumbilical hernia Acute Postoperative infection Acute Severe sepsis Acute Vomiting Acute Wound infection after surgery Acute
--- NOTE | 2018-07-12 15:04 | SOAPPROG ---
SOAP Progress Note Assessment/Plan: Assessment: Discussed case with Dr. Winter and with her daughter Annika Plan: 07/12/18 15:03 Objective: Vital Signs Temp Pulse Resp BP Pulse Ox 38.5 C H 108 H 20 114/71 97 07/12/18 14:00 07/12/18 14:00 07/12/18 14:00 07/12/18 14:00 07/12/18 14:00 Laboratory Results 07/12/18 06:10 07/12/18 06:10 07/11/18 07/12/18 07/13/18 05:59 05:59 05:59 Intake Total 6563 Output Total 550 Balance 6013 PT 17.4 SEC (12.0-15.0) H 07/12/18 06:10 INR 1.41 (0.83-1.16) H 07/12/18 06:10 ICD10 Worksheet Patient Problems: Problems Problem Status Onset Crohns disease of small intestine Acute Septic shock Acute Abdominal pain Acute Abdominal pain Acute Abdominal pain, chronic, right lower quadrant Acute Acute Crohn's disease Acute Altered mental status Acute Bronchitis Acute Constipation Acute Crohns disease Acute Fever Acute Intra-abdominal abscess Acute Malnutrition Acute Periumbilical hernia Acute Postoperative infection Acute Severe sepsis Acute Vomiting Acute Wound infection after surgery Acute
[2018-07-12] MEDS: PREGABALIN 100 MG CAP PO SCH ×2 (15:50→21:06)
--- NOTE | 2018-07-12 16:35 | PDMN ---
Medical Necessity Medical necessity: Pt meets inpt criteria per MD order and MCG M-160, Sepsis and Other Febrile Illness, without Focal Infection, A-3 days. 72 y/o w/hx Chrohns disease, subsequent resection, and mult abd surgeries. Pt has developed enterocutaneous fistulas. Pt presented to ED w/N/V/D, WBC ct of 1.34 and hypotensive (68/32), admitted w/septic shock, transaminitiis, persistently febrile w/most recent temp of 101, requiring 4 L O2, IV ABX's, IVF, IV Vasopressin, IV Norepinephrine, IV Dilaudid for pain, IV Hydrocortisone, blood and urine cultures pending, ICU monitoring, anticipate>2MN for ongoing eval/ management of above.
--- NOTE | 2018-07-12 16:39 | GCON ---
CRITICAL CARE CONSULTATION DATE OF CONSULTATION: 07/12/2018 HPI: This patient is a 72-year-old female with a longstanding history of Crohn disease and multiple abdominal surgeries in the past complicated by fistulas and other complications. She is well known t o Dr. Yee, who was in the room when I went to see her earlier today. She was admitted overnight wi th copious diarrhea and hypotension. Because of her recurrent surgeries, she had been on TPN for abo ut a month but had no recent antibiotics and no recent C difficile. Her blood pressure was 68/32 on arrival with a T-max of 39. She was true to the sepsis protocol, including IV fluids and a CT scan, which showed no surgical issues. A left subclavian catheter was placed without difficulty. She has been quite distraught about her inability to take care of herself at home. She is getting quite tire d of her multiple interventions related to her refractory Crohn disease and ongoing GI issues. She w as made a DNR this morning with Dr. Yee and is contemplating hospice, though she is not quite there yet. REVIEW OF SYSTEMS: Otherwise negative. PAST MEDICAL HISTORY: Includes Crohn disease, scoliosis, bowel obstructions. PAST SURGICAL HISTORY: Includes multiple bowel surgeries, as well as breast augmentation, C-spine glasgow rgery, tubal ligation, ostomy and reverse ostomies in the past. SOCIAL HISTORY: She is an ongoing smoker. FAMILY HISTORY: Noncontributory at this time. CURRENT MEDICATIONS: Include Tylenol; cefepime; Lovenox; Solu-Cortef; Dilaudid; Ativan; Flagyl; nore pinephrine; Zofran; Lyrica; Phenergan; vancomycin oral, which has been discontinued and vancomycin IV ; and vasopressin. PHYSICAL EXAM: VITAL SIGNS: As I said, she had a T-max of 39 and is currently afebrile. Blood pres sure 106/63, heart rate 94, respirations 12, oxygen saturation 92% on 2 L. GENERAL: She was awake, alert, and oriented x3 and able to speak in full sentences without using accessory muscles for breath ing. HEENT: Pupils equally round and reactive to light, nonicteric, non-injected. Mucous membranes are moist without erythema or exudate. NECK: Supple without adenopathy or jugular vein distention. LUNGS: Breath sounds were clear to auscultation bilaterally without wheezes, rubs or rales. HEART : Regular rate and rhythm without obvious murmurs, rubs, or gallops. ABDOMEN: Soft but markedly di stended from baseline according to both the patient and Dr. Yee with hypoactive bowel tones. Her p revious scars and incisions seem to be healing reasonably well. EXTREMITIES: Show no clubbing, cyan osis, or edema. NEUROLOGIC: Exam nonfocal, including cranial nerves and deep tendon reflexes. OBJECTIVE DATA: Includes a white count, which was 1.3 on admission, 24.2 currently with a hematocrit 26.7 after fluids, platelets of 262. Basic metabolic panel showed a creatinine of 1.1. Sodium was 138, potassium 4.2, chloride 117, bicarb 15 with anion gap of 6. That was only 13 on admission. It has gotten better. LFTs started out with AST of 216, casey to 1190, down to 997; and ALT started at 1 61, went to 738, down to 707. Total bilirubin has been normal throughout. Alk phos has been also ma rginally elevated but came down nicely. Albumin was 3.8 on admission. Urinalysis was unremarkable. Blood cultures currently are negative to date, as is urine cultures. Abdominal CT showed postoperat sally changes but no obvious obstructions or free air or abscesses. ASSESSMENT/PLAN: 1. Septic shock, probably from a gastrointestinal source, I would assume, and she is currently getti ng cefepime, Flagyl, and vancomycin. Other possibilities would be a fungemia that may take some time to grow, though she is showing some signs of slight improvement. We will continue to follow her sev ere hypotension, decrease her norepinephrine dose prior to vasopressin. In addition, I gave her an a mp of bicarb today, and hopefully, that will improve her hemodynamics as well. Once she is off her p ressors, we can start removing the hydrocortisone, which we may remove sooner should the fungus grow in her blood. 2. Transaminitis. I think this is likely due to septic shock and will resolve on its own. We discu ssed this with Dr. Yee this morning. A HIDA scan, I think, is unlikely to be helpful at this time. 3. Hypoxemia, which is very minor, likely due to atelectasis. No specific intervention is required at this time. A total of about 45 minutes of critical care time was needed to evaluate this patient. /[id number]/MODL
[2018-07-13] MEDS: VANCOMYCIN 750 MG in D5W 150 ML IV SCH (02:28)
[2018-07-13] MEDS: NOREPINEPHRINE BITARTRATE 16 MG in NS 250 ML IV SCH (02:29)
[2018-07-13] MEDS: HYDROmorphONE/DILAUDID 1 MG/ML INJ IVP PRN ×4 (03:36→21:15)
[2018-07-13] MEDS: HYDROCORTISONE 100 MG/2 ML VIAL IVP SCH (04:06)
[2018-07-13] MEDS: ENOXAPARIN 30 MG/0.3 ML SYR SC SCH (08:56)
[2018-07-13] MEDS: PREGABALIN 100 MG CAP PO SCH ×3 (08:56→20:19)
[2018-07-13] MEDS: VASOPRESSIN 25 UNIT in NS 250 ML IV SCH ×2 (08:57→18:58)
[2018-07-13] MEDS ORDERED: HYDROmorphONE/DILAUDID 1 MG/ML INJ IVP ONE (10:00)
[2018-07-13] MEDS: CEFEPIME HCL 2 GM in NS 100 ML IV SCH ×2 (11:27→23:48)
--- NOTE | 2018-07-13 16:01 | PDINTPN ---
[employer] Progress Note Assessment/Plan: 72 F with long history of Crohns disease and multiple surgeries related to it and complications such as fistulas, admitted 07/11 with copious diarrhea and hypotension. She was treated with the sepsis protocol but required high dose levophed for support, in addition to vasopressin and hydrocortisone. She expressed early that she was considering hospice given her poor overall quality of life and was made DNR on admission. She eventually grew Klebsiella in blood cultures. * Septic shock related to Klebsiella bacteremia, probably from a GI source. Her abdominal wounds have greatly improved per Dr. Yee, though there is still some purulent discharge. Her abdo CT showed only postop changes and no indication for additional surgical intervention (such as abscess drainage). Her BP has slowly improved and her levophed requirement continues to fall. Her elevated wbc probably represents hydrocortisone which was dc'd today. Vanco dc'd , but she remains on cefepime and flagyl until sensitivities can be obtained. * Transaminitis- likely from shock liver as her LFTs continue to normalize. No further workup * Atelectasis- stable O2 requirement. Pulmonary toilet. * Abdominal pain treated with dilaudid. Gave her an extra 0.2 mg this am. OOB may help. * Dispo- she is in considerable discomfort and will likely transition to hospice soon. I mentioned this possibility to her daughters today, but would defer to Dr. Yee who has a long standing relationship with the patient and family. I will gladly assist as need on this topic as well. Today we will continue efforts to de-escalate her support, provide maximum comfort, and revisit this issue depending on the clinical course. Subjective: continues to complain of diffuse body aches and discomfort. Pressors reduced today Objective: Vital Signs Temp Pulse Resp BP Pulse Ox 38.1 C 104 H 15 90/53 L 100 07/13/18 15:00 07/13/18 15:00 07/13/18 15:00 07/13/18 15:00 07/13/18 15:00 Laboratory Results 07/13/18 03:40 07/13/18 03:40 07/12/18 07/13/18 07/14/18 05:59 05:59 05:59 Intake Total 6592 2967 Output Total 550 3175 Balance 6013 -208 PT 17.4 SEC (12.0-15.0) H 07/12/18 06:10 INR 1.41 (0.83-1.16) H 07/12/18 06:10 Physical Exam - Physical Exam General Appearance: alert, moderate distress EENT: PERRL/EOMI Neck: supple Respiratory: lungs clear, normal breath sounds, decreased breath sounds, No respiratory distress, No accessory muscle use Cardiac/Chest: regular rate, rhythm, No edema Abdomen: soft, distended, guarding, other (minor purulent dc from wound), No pulsatile mass, No rigid Skin: normal color, warm/dry, No cyanosis Lymphatic: no adenopathy Extremities: No pedal edema Neuro/Psych: alert, oriented x 3 ICD10 Worksheet Patient Problems: Problems Problem Status Onset Crohns disease of small intestine Acute Septic shock Acute Abdominal pain Acute Abdominal pain Acute Abdominal pain, chronic, right lower quadrant Acute Acute Crohn's disease Acute Altered mental status Acute Bronchitis Acute Constipation Acute Crohns disease Acute Fever Acute Intra-abdominal abscess Acute Malnutrition Acute Periumbilical hernia Acute Postoperative infection Acute Severe sepsis Acute Vomiting Acute Wound infection after surgery Acute
--- NOTE | 2018-07-13 17:25 | HOSPPROG ---
Hospitalist Progress Note Assessment/Plan: 72yo F with Crohn's s/p bowel resection with multiple complications including enterocutaneous fistula and subsequent surgeries here with septic shock. 1. Septic shock: Suspect intra-abdominal source. Vasopressor requirements decreasing. - Continue levophed and vasopressin - Discontinued hydrocortisone - Continue cefepime, flagyl. Discontinue vancomycin - Low threshold to add anti-fungal coverage if worsening 2. Klebsiella bacteremia: 06/30 bottles. Likely gut translocation. Management as above. 3. Abdominal distention: Small ascites on initial CT which has increased in size with fluid resuscitation. Hold on paracentesis 4. Transaminitis: Likely r/t shock liver, improving. - Trend daily 5. Hypoxia: Due to compressive atelectasis from abdominal distention - Wean O2 as able 6. Leukocytosis: Impressive jump in setting of infection and steroids. Should improve with steroids stopped. 7. Crohn's disease with multiple complications - Has met with palliative in the past. Will monitor clinical course over coming days. If declining, would be hospice appropriate VTE ppx: LMWH Code: DNR Dispo: Remain inpatient, critically ill on pressors I spent a total of 35 minutes of critical care time assessing patient. Subjective: Worked up this morning, really down. This afternoon, in better spirits and pain better. Objective: Vital Signs Temp Pulse Resp BP Pulse Ox 38 C 101 H 13 113/62 100 07/13/18 17:00 07/13/18 17:00 07/13/18 17:00 07/13/18 17:00 07/13/18 17:00 Laboratory Results 07/13/18 03:40 07/13/18 03:40 07/12/18 07/13/18 07/14/18 05:59 05:59 05:59 Intake Total 6563 2967 Output Total 550 3175 Balance 6013 -208 PT 17.4 SEC (12.0-15.0) H 07/12/18 06:10 INR 1.41 (0.83-1.16) H 07/12/18 06:10 - Physical Exam Constitutional: uncomfortable Eyes: PERRL, anicteric sclera, EOMI Ears, Nose, Mouth, Throat: moist mucous membranes, hearing normal, ears appear normal, no oral mucosal ulcers Cardiovascular: regular rate and rhythym, no murmur, rub, or gallop Respiratory: no respiratory distress Gastrointestinal: tenderness, distension, other (fistula draining some green fluid) Genitourinary: au in urethra Skin: no rashes or abrasions, no fluctuance, no induration Musculoskeletal: generalized weakness Neurologic: AAOx3 Psychiatric: interacting appropriately ICD10 Worksheet Patient Problems: Problems Problem Status Onset Crohns disease of small intestine Acute Septic shock Acute Abdominal pain Acute Abdominal pain Acute Abdominal pain, chronic, right lower quadrant Acute Acute Crohn's disease Acute Altered mental status Acute Bronchitis Acute Constipation Acute Crohns disease Acute Fever Acute Intra-abdominal abscess Acute Malnutrition Acute Periumbilical hernia Acute Postoperative infection Acute Severe sepsis Acute Vomiting Acute Wound infection after surgery Acute
--- NOTE | 2018-07-13 17:40 | SOAPPROG ---
SOAP Progress Note Assessment/Plan: Assessment: [age]-year-old woman well known to me who has had multiple abdominal surgeries. No obvious source of abdominal complication at this time. She does have an entero atmospheric fistula which waxes and wanes. She was previously on TPN but has low output with diet. She remains in poor spirits today and appears very tired. Discussed case with her daughters Annika and Debbie. Although her pressor requirements are decreasing she remains critically ill and I am not sure if she has the stamina to overcome this illness. We will continue to support her. Hoping that she will improve over the next couple of days. If she is not then other decisions certainly need to be addressed Subjective: Sitting in chair appears weak and very tired Objective abdomen soft, more round than when I last saw her. She has scant fistulous drainage Plan: 07/12/18 15:03 07/13/18 17:38 Objective: Vital Signs Temp Pulse Resp BP Pulse Ox 38 C 101 H 13 113/62 100 07/13/18 17:00 07/13/18 17:00 07/13/18 17:00 07/13/18 17:00 07/13/18 17:00 Laboratory Results 07/13/18 03:40 07/13/18 03:40 07/12/18 07/13/18 07/14/18 05:59 05:59 05:59 Intake Total 6563 2967 Output Total 550 3175 Balance 6013 -208 PT 17.4 SEC (12.0-15.0) H 07/12/18 06:10 INR 1.41 (0.83-1.16) H 07/12/18 06:10 ICD10 Worksheet Patient Problems: Problems Problem Status Onset Crohns disease of small intestine Acute Septic shock Acute Abdominal pain Acute Abdominal pain Acute Abdominal pain, chronic, right lower quadrant Acute Acute Crohn's disease Acute Altered mental status Acute Bronchitis Acute Constipation Acute Crohns disease Acute Fever Acute Intra-abdominal abscess Acute Malnutrition Acute Periumbilical hernia Acute Postoperative infection Acute Severe sepsis Acute Vomiting Acute Wound infection after surgery Acute
[2018-07-13] MEDS: LORazepam 1 MG TAB PO PRN (20:19)
[2018-07-13] MEDS: ONDANSETRON 4 MG/2 ML VIAL IVP PRN (20:27)
[2018-07-14] MEDS: LORazepam 1 MG TAB PO PRN ×2 (01:33→08:41)
[2018-07-14] MEDS: HYDROmorphONE/DILAUDID 1 MG/ML INJ IVP PRN ×2 (01:33→08:33)
[2018-07-14] MEDS ORDERED: HYDROCORTISONE 100 MG/2 ML VIAL IVP SCH (04:00)
[2018-07-14] MEDS: PREGABALIN 100 MG CAP PO SCH ×2 (08:19→14:30)
[2018-07-14] MEDS: ENOXAPARIN 30 MG/0.3 ML SYR SC SCH (08:37)
--- NOTE | 2018-07-14 08:52 | SOAPPROG ---
SOAP Progress Note Assessment/Plan: Assessment/Plan: 72-year-old woman well known to our service who has had multiple abdominal surgeries. Admitted with abdominal pain and failure to thrive. Hypotension d/t sepsis - decreasing pressor requirements Blood cultures - klebsiella Urine cultures - polymicrobial including Citrobacter, Klebsiella, and Pseudomonas. Increased output from enterocutaneous fistula - wound care consult. do not want to re-initiate TPN yet d/t transaminitis improving Labs pending Discuss goals of care with patient and daughter Zion. If labs appear to be improving, continue on course. If no improvement, will discuss hospice. Subjective: weak and tired. No improvement Objective: General: Ill-appearing woman, uncomfortable, daughter Zion at bedside Lungs: Clear to auscultation bilaterally, No increased work of breathing Cardiac: Regular rate, no peripheral edema Abdomen: Distended, multiple surgical scars, no rebound or guarding Skin: Warm and dry. Enterocutaneous fistula with increased output. No christiano wound breakdown at this time. Psych: Appropriately tearful Objective: Vital Signs Temp Pulse Resp BP Pulse Ox 37.5 C 96 15 96/58 L 97 07/14/18 08:00 07/14/18 08:00 07/14/18 08:00 07/14/18 07:00 07/14/18 08:00 Laboratory Results 07/13/18 03:40 07/13/18 03:40 07/13/18 07/14/18 07/15/18 05:59 05:59 05:59 Intake Total 2967 2015 Output Total 3172099 Balance -208 -84 PT 17.4 SEC (12.0-15.0) H 07/12/18 06:10 INR 1.41 (0.83-1.16) H 07/12/18 06:10 ICD10 Worksheet Patient Problems: Problems Problem Status Onset Crohns disease of small intestine Acute Septic shock Acute Abdominal pain Acute Abdominal pain Acute Abdominal pain, chronic, right lower quadrant Acute Acute Crohn's disease Acute Altered mental status Acute Bronchitis Acute Constipation Acute Crohns disease Acute Fever Acute Intra-abdominal abscess Acute Malnutrition Acute Periumbilical hernia Acute Postoperative infection Acute Severe sepsis Acute Vomiting Acute Wound infection after surgery Acute
[2018-07-14 09:47] LABS: PLATELET COUNT 151 10^3/uL (150-400)
[2018-07-14] MEDS: CEFEPIME HCL 2 GM in NS 100 ML IV SCH (11:48)
[2018-07-14] MEDS ORDERED: POTASSIUM CL 20 MEQ TAB PO ONE (13:18)
--- NOTE | 2018-07-14 13:21 | HOSPPROG ---
Hospitalist Progress Note Assessment/Plan: 72yo F with Crohn's s/p bowel resection with multiple complications including enterocutaneous fistula and subsequent surgeries here with septic shock. 1. Septic shock: Suspect intra-abdominal source. Vasopressor requirements again decreasing. - Weaning levophed and vasopressin, hopefully off by end of day - Discontinued hydrocortisone - ID consultation for help with antibiotic management (d/w Dr Benitez) - Continue cefepime. Discontinue flagyl. Discontinued vancomycin 07/13 2. Klebsiella pneumoniae bacteremia: 06/30 bottles. Likely gut translocation. Management as above. 3. Polymicrobial urine culture: UA essentially normal on admit. Antibiotics as above. 4. Anemia: - Transfuse 1u PRBC today 5. Abdominal distention: Small ascites on initial CT which has increased in size with fluid resuscitation. Hold on paracentesis for now 6. Transaminitis: Likely r/t shock liver, improving. - Trend 7. Hypoxia: Due to compressive atelectasis from abdominal distention - Wean O2 as able 8. Leukocytosis: Impressive jump in setting of infection and steroids. Now improving with steroids stopped, antibiotics. 9. Crohn's disease with multiple complications - Has met with palliative in the past. Will monitor clinical course over coming days. If declining, would be hospice appropriate VTE ppx: LMWH Code: DNR Dispo: Remain inpatient, critically ill on pressors I spent a total of 35 minutes of critical care time assessing patient. Subjective: Sleepy, feeling terribly. Still with body aches. Some drainage from abdomen. No fevers, pressor requirements down. Objective: Vital Signs Temp Pulse Resp BP Pulse Ox 37.7 C 102 H 14 96/51 L 93 07/14/18 12:00 07/14/18 12:00 07/14/18 12:00 07/14/18 12:00 07/14/18 12:00 Laboratory Results 07/14/18 08:50 07/14/18 08:50 07/13/18 07/14/18 07/15/18 05:59 05:59 05:59 Intake Total 2967 2015 Output Total 3174 2099 Balance -208 -84 PT 17.4 SEC (12.0-15.0) H 07/12/18 06:10 INR 1.41 (0.83-1.16) H 07/12/18 06:10 - Physical Exam Constitutional: chronically ill appearing Eyes: PERRL, anicteric sclera, EOMI Ears, Nose, Mouth, Throat: dry mucous membranes Cardiovascular: regular rate and rhythym, no murmur, rub, or gallop, No edema Respiratory: no respiratory distress, no rales or rhonchi, clear to auscultation Gastrointestinal: tenderness, distension, No guarding Genitourinary: no bladder fullness, no bladder tenderness, no renal bruits Skin: no rashes or abrasions, no fluctuance, no induration Musculoskeletal: generalized weakness Neurologic: AAOx3 Psychiatric: interacting appropriately ICD10 Worksheet Patient Problems: Problems Problem Status Onset Crohns disease of small intestine Acute Septic shock Acute Abdominal pain Acute Abdominal pain Acute Abdominal pain, chronic, right lower quadrant Acute Acute Crohn's disease Acute Altered mental status Acute Bronchitis Acute Constipation Acute Crohns disease Acute Fever Acute Intra-abdominal abscess Acute Malnutrition Acute Periumbilical hernia Acute Postoperative infection Acute Severe sepsis Acute Vomiting Acute Wound infection after surgery Acute
--- NOTE | 2018-07-14 14:01 | WOCRNPDOC ---
TONYCRBarbara Advanced Assessment Note - Skin Integrity Problem, Advanced Assess Left Abdomen Denuded Dressing Type: Gauze, Other (medipore tape) Dressing Description: Clean/Dry, Intact Closure Description: Not Approximated Exudate Amount: Minimal Exudate Color: Yellow, Green Exudate Characteristic(s): Liquid Integumentary Issue Intervention: Dressing Changed, Barrier Cream Applied Kenzie Wound Tissue: Erythema, Painful/Tender Wound Edges: Well Defined Skin Integrity Problem Comment: Patient with long history of enterocutaneous fistula to this area. Per LUCAS Ordonez, this morning the fistula was extremely productive and wound care was notified to try to preserve the integrity of the skin. By the time I arrive, LUCAS Ordonez reports that production has decreased significantly. During the patient's last hospitalization, an attempt was made to place an ostomy appliance over the fistula to capture drainage and to protect the skin. Ultimately, the patient decided that she didn't like the appliance or the time it took to place and opted for ABDs to capture the drainage. Patient is unable to have this discussion today but her family endorses that she would not want another appliance. At this point, drainage seems manageable by a dressing. Will protect the surrounding skin with clear zinc barrier. Advised LUCAS Ordonez that if quantity of output increases, to recontact wound care. Otherwise, wound care will plan to round again later next week.
[2018-07-14] MEDS: oxyCODONE IR 5 MG TAB PO PRN ×2 (14:30→18:27)
--- NOTE | 2018-07-14 15:14 | ASMTCMCOM ---
CM Note CM Note Notes: OT/PT have recommended SNF rehab for the patient. In rounds, Dr. Yee spoke of giving the patient some more time to see if she improves. The patient may be interested in comfort measures as she is fatigued with all the medical interventions. Wound care is involved. Dr. Yee has spoken with the patient's daughters about options and will consider hospice conversation on Tuesday if there is no improvement. Discharge plan TBD depending on patient's progress and what else she wants to do. CM will follow. Date Signed: 07/14/2018 03:14 PM Electronically Signed By:Joselin Bowling LCSW
--- NOTE | 2018-07-14 16:48 | PDINTPN ---
[employer] Manager Progress Note Assessment/Plan: 72 F with long history of Crohns disease and multiple surgeries related to it and complications such as fistulas, admitted 07/11 with copious diarrhea and hypotension. She was treated with the sepsis protocol but required high dose levophed for support, in addition to vasopressin and hydrocortisone. She expressed early that she was considering hospice given her poor overall quality of life and was made DNR on admission. She eventually grew Klebsiella in blood cultures. * Septic shock related to Klebsiella bacteremia, probably from a GI source. Her abdo CT showed only postop changes and no indication for additional surgical intervention (such as abscess drainage), but she continues to ooze purulent drainage from her known fistula. Now off levophed- target SBP>90 rather than MAP to dc vasopressin. * Transaminitis- likely from shock liver as her LFTs continue to normalize. No further workup * Atelectasis- stable O2 requirement. Pulmonary toilet. * Abdominal pain treated with dilaudid. Gave her an extra 0.2 mg this am. OOB may help. * Dispo- she is in considerable discomfort and may transition to hospice soon- defer to Dr. Yee for this discussion for now. 07/14/18 16:46 Subjective: somnolent but said her pain was better controlled. Still oozing from fistula Objective: Vital Signs Temp Pulse Resp BP Pulse Ox 37.7 C 104 H 15 96/61 L 95 07/14/18 16:00 07/14/18 16:00 07/14/18 16:00 07/14/18 16:00 07/14/18 16:00 Laboratory Results 07/14/18 08:50 07/14/18 08:50 07/13/18 07/14/18 07/15/18 05:59 05:59 05:59 Intake Total 2967 2016 Output Total 3175 2100 Balance -208 -84 PT 17.4 SEC (12.0-15.0) H 07/12/18 06:10 INR 1.41 (0.83-1.16) H 07/12/18 06:10 Physical Exam - Physical Exam General Appearance: no apparent distress EENT: PERRL/EOMI Neck: supple Respiratory: lungs clear, normal breath sounds, decreased breath sounds, No respiratory distress, No accessory muscle use Cardiac/Chest: regular rate, rhythm, edema Abdomen: soft, distended, other (purulent material from fistula), No normal bowel sounds, No guarding Skin: normal color, warm/dry, No cyanosis Lymphatic: no adenopathy Extremities: pedal edema Neuro/Psych: oriented x 3, other (somnolent), No abnormal assessment specialist II-XII ICD10 Worksheet Patient Problems: Problems Problem Status Onset Crohns disease of small intestine Acute Septic shock Acute Abdominal pain Acute Abdominal pain Acute Abdominal pain, chronic, right lower quadrant Acute Acute Crohn's disease Acute Altered mental status Acute Bronchitis Acute Constipation Acute Crohns disease Acute Fever Acute Intra-abdominal abscess Acute Malnutrition Acute Periumbilical hernia Acute Postoperative infection Acute Severe sepsis Acute Vomiting Acute Wound infection after surgery Acute
--- NOTE | 2018-07-14 17:08 | GCON ---
INFECTIOUS DISEASE CONSULTATION DATE OF CONSULTATION: 07/14/2018 REFERRING PHYSICIAN: Kassy Yee MD REASON FOR CONSULTATION: Antibiotic management in the setting of severe sepsis and multiple antibiot ic allergies. HISTORY OF PRESENT ILLNESS: A 72-year-old woman with a complex medical history primarily related to Crohn disease, who has had 13 surgeries, including bowel resections in the last few years. She has d eveloped enterocutaneous fistulas, most recently admitted in mid May. On 07/11/2018, she had be en doing well but developed a sudden onset of nausea, vomiting, and profuse diarrhea. When she was e valuated in the emergency room at admission, 07/11/2018, she was found to be tachycardic and hypotens sally, and fluids were given. She became febrile, with increased abdominal distention, and a CT scan w as ordered to evaluate her pain, which showed a small amount of ascites, dilated loops of small bowel , multiple surgical clips, and mild gaseous distention of the colon, without toxic megacolon. The CT of the pelvis showed normal bladder contour and DJD of the hips. The patient was admitted to the [facility] and started on IV cefepime 2 g IV q.12 and IV Flagyl. She eventually required high-dose press ors, which have been weaned off over her hospital duration. Further, patient was found to have a matthew kopenia initially, was given high-dose steroids and developed a marked leukocytosis with prominent ba ndemia, with a white count of 24,000 and bands of 30,000. She was also noticed to have a prominent h epatitis with a peak AST of 1100 and an ALT of 738. Although patient has had some numeric improvement s, specifically, as pressors have been tapered off, white count is improving, and LFTs are improving. PAST MEDICAL HISTORY: Chronic pain, Crohn disease, DJD, depression, enterocutaneous fistula, and pul monary nodule. PAST SURGICAL HISTORY: Multiple bowel obstructions, breast augmentation, cervical diskectomy, colect jyoti, laminectomy, umbilical hernia repair. ALLERGIES: Include confusion to ertapenem, seizure to penicillin, and unknown reaction to cephalospo rins. She is unable to give a history today. She is also allergic to multiple other agents I did no t review, including azathioprine, budesonide, fentanyl, gabapentin, infliximab, mesalamine, morphine, tramadol, and azathioprine. MEDICATIONS: She is on cefepime 2 g IV q.12 and Flagyl 500 IV t.i.d. She has been weaned off steroi ds at the time of my exam. REVIEW OF SYSTEMS: With the assistance of family, a complete review of systems was performed and is negative. PHYSICAL EXAM: VITAL SIGNS: Blood pressure 98/58, heart rate 104, respiratory rate 14, saturation 9 5% on OxyMask, temperature 37.8. GENERAL: This is a chronically ill-appearing, distressed woman, ly ing on her side, complaining of diffuse body pain. HEENT: No thrush, but dry mucous membranes. Pal e conjunctivae. No conjunctival hemorrhages. NECK: Supple. CARDIOVASCULAR: Tachycardic. CHEST: Clear to auscultation bilaterally. ABDOMEN: Distended. Diffuse discomfort to palpation. Bowel beatris nds were present. EXTREMITIES: Was unable to examine her PICC line at the time of my exam. Minimal lower extremity edema. No skin rashes were noted. LABORATORY DATA: Creatinine 0.7. White count 17.6, hematocrit 21, platelets of 151, 98% neutrophils . Influenza A and B were negative. Urinalysis on admission showed trace leukocyte esterase, 10-15 W BCs, with some hyaline casts. MICROBIOLOGY: Blood cultures 1 of 2 with Klebsiella pneumoniae. Susceptibilities are pending. Urin e culture was polymicrobial with Citrobacter, Klebsiella, and Pseudomonas aeruginosa, all quantitated at 20-30,000 CFU. IMAGING: Per HPI. ASSESSMENT AND PLAN: A 72-year-old woman with chronic Crohn disease, who is admitted with septic junior ck and is found to be bacteremic with Klebsiella. Source could include bowel, urinary, PICC line ass ociated. Patient still looks quite ill on physical exam, but by other measures, has had some improve ment, including decrease in pressor requirement, improved white count and improved transaminitis. Mason morrow does have ongoing confusion, but it is difficult to assess whether this is delirium from septic shock versus a potential side effect of cefepime. 1. At this point, would discontinue metronidazole and continue cefepime, which is dosed for a creati nine clearance around 50, which is probably reasonable in this instance. 2. Will continue to follow blood cultures. 3. I will try to sort out if one of the blood cultures was drawn from her PICC line. Nonetheless, w hen available, will possibly need to place a new PICC line. 4. Due to the complexity of this case, reasonable to repeat blood cultures to establish clearance of Klebsiella. 5. Will continue to assess need for repeat imaging of the abdomen due to fairly significant pain to palpation on exam today. 6. Thank you for this consultation. Will continue to see the patient on a daily basis. /[id number]/MODL
[2018-07-14] MEDS: ACETAMINOPHEN 325 MG TAB PO PRN (17:26)
[2018-07-15] MEDS: PREGABALIN 100 MG CAP PO SCH ×4 (00:32→20:46)
[2018-07-15] MEDS: CEFEPIME HCL 2 GM in NS 100 ML IV SCH ×2 (00:32→11:55)
[2018-07-15] MEDS: HYDROmorphONE/DILAUDID 1 MG/ML INJ IVP PRN (03:52)
[2018-07-15] MEDS: LORazepam 1 MG TAB PO PRN ×2 (03:52→11:55)
[2018-07-15] MEDS: ONDANSETRON 4 MG/2 ML VIAL IVP PRN (03:59)
--- NOTE | 2018-07-15 10:29 | SOAPPROG ---
SOAP Progress Note Assessment/Plan: Assessment: Assessment/Plan: 72-year-old woman well known to our service who has had multiple abdominal surgeries. Admitted with abdominal pain and failure to thrive. Hypotension d/t sepsis -off pressors Blood cultures - klebsiella Urine cultures - polymicrobial including Citrobacter, Klebsiella, and Pseudomonas. ? contamination Acute on Chronic anemia - received PRBC yesterday Increased output from enterocutaneous fistula - diligent skin care. Do not want to re-initiate TPN yet d/t transaminitis improving I think she is a bit better today Continue course. I think would be fine in SDU Subjective: A bit better today. More alert and conversant Objective: General: Ill-appearing woman, comfortable, lying in bed daughter Zion at bedside Lungs: Clear to auscultation bilaterally, No increased work of breathing Cardiac: Regular rate, no peripheral edema Abdomen: Much less distended, multiple surgical scars, no rebound or guarding. Skin: Warm and dry. Enterocutaneous fistula with increased output. No christiano wound breakdown at this time. Psych: tired but not tearful Plan: 07/12/18 15:03 07/13/18 17:38 07/15/18 10:26 Objective: Vital Signs Temp Pulse Resp BP Pulse Ox 37.4 C 94 14 114/64 94 07/15/18 08:00 07/15/18 08:00 07/15/18 08:00 07/15/18 08:00 07/15/18 08:00 Laboratory Results 07/15/18 03:50 07/15/18 03:50 07/14/18 07/15/18 07/16/18 05:59 05:59 05:59 Intake Total 2015 2352 Output Total 2099 3474 Balance -84 -1122 PT 17.4 SEC (12.0-15.0) H 07/12/18 06:10 INR 1.41 (0.83-1.16) H 07/12/18 06:10 ICD10 Worksheet Patient Problems: Problems Problem Status Onset Crohns disease of small intestine Acute Septic shock Acute Abdominal pain Acute Abdominal pain Acute Abdominal pain, chronic, right lower quadrant Acute Acute Crohn's disease Acute Altered mental status Acute Bronchitis Acute Constipation Acute Crohns disease Acute Fever Acute Intra-abdominal abscess Acute Malnutrition Acute Periumbilical hernia Acute Postoperative infection Acute Severe sepsis Acute Vomiting Acute Wound infection after surgery Acute
[2018-07-15] MEDS: ACETAMINOPHEN 325 MG TAB PO PRN ×2 (11:17→20:47)
--- NOTE | 2018-07-15 13:24 | PDINTPN ---
Bee Breeder Progress Note Assessment/Plan: 72 F with long history of Crohns disease and multiple surgeries related to it and complications such as fistulas, admitted 07/11 with copious diarrhea and hypotension. She was treated with the sepsis protocol but required high dose levophed for support, in addition to vasopressin and hydrocortisone. She expressed early that she was considering hospice given her poor overall quality of life and was made DNR on admission. She eventually grew Klebsiella in blood cultures. * Septic shock related to Klebsiella bacteremia, probably from a GI source. Her abdo CT showed only postop changes and no indication for additional surgical intervention (such as abscess drainage), but she continues to ooze purulent drainage from her known fistula. Now off levophed- target SBP>90 rather than MAP to dc vasopressin. * Transaminitis- likely from shock liver as her LFTs continue to normalize. No further workup * Atelectasis- stable O2 requirement. Pulmonary toilet. * Abdominal pain treated with dilaudid. Gave her an extra 0.2 mg this am. OOB may help. * Dispo- she is in considerable discomfort and may transition to hospice soon- defer to Dr. Yee for this discussion for now. OK for SDU/floor 07/14/18 16:46 07/15/18 13:22 Subjective: still "feels like shit" but less somnolent Objective: Vital Signs Temp Pulse Resp BP Pulse Ox 37.1 C 94 18 120/74 93 07/15/18 11:46 07/15/18 11:46 07/15/18 11:46 07/15/18 11:46 07/15/18 11:46 Laboratory Results 07/15/18 03:50 07/15/18 03:50 07/14/18 07/15/18 07/16/18 05:59 05:59 05:59 Intake Total 2015 2352 Output Total 20995 Balance -84 -1122 PT 17.4 SEC (12.0-15.0) H 07/12/18 06:10 INR 1.41 (0.83-1.16) H 07/12/18 06:10 Physical Exam - Physical Exam General Appearance: alert, no apparent distress EENT: PERRL/EOMI Neck: supple Respiratory: lungs clear, normal breath sounds, decreased breath sounds, No respiratory distress, No accessory muscle use Cardiac/Chest: regular rate, rhythm, No edema Abdomen: normal bowel sounds, soft, distended, other (purulent drainage from fistula tract), No guarding, No rebound, No hernia Skin: normal color, warm/dry, No cyanosis Lymphatic: no adenopathy Extremities: No pedal edema Neuro/Psych: alert, normal mood/affect, oriented x 3 ICD10 Worksheet Patient Problems: Problems Problem Status Onset Crohns disease of small intestine Acute Septic shock Acute Abdominal pain Acute Abdominal pain Acute Abdominal pain, chronic, right lower quadrant Acute Acute Crohn's disease Acute Altered mental status Acute Bronchitis Acute Constipation Acute Crohns disease Acute Fever Acute Intra-abdominal abscess Acute Malnutrition Acute Periumbilical hernia Acute Postoperative infection Acute Severe sepsis Acute Vomiting Acute Wound infection after surgery Acute
--- NOTE | 2018-07-15 14:52 | PCMIDPN ---
Assessment/Plan: Assessment 1. Septic shock: Marked improvement today, off pressors, now in Step-Down Unit , T-max 38. Leukocytosis gradually improving 2. Klebsiella bacteremia, unclear source considerations include intra-abdominal versus PICC line. Doubt urinary 3. Hepatitis due to septic shock, LFTs are improving 4. Altered mental status likely related to septic shock : Resolved Plan 1. Repeat right upper quadrant ultrasound to reassess loculated fluid collections, consider tapping. 2. Narrow antibiotic coverage to ceftriaxone 1 g IV daily now that susceptibilities are known 3. Once repeat blood cultures are negative for 48 hr would exchange PICC line. (Unless IV access non longer needed) Medications Cefepime 2 g IV q.12, #2 Microbiology 07/14/18 blood culture (2): Pending 07/11/18 21:35 Urine,Clean Catch Urine Culture - Final Citrobacter Freundii Klebsiella Pneumoniae Pseudomonas Aeruginosa 07/11/18 20:45 Blood Cx /: Klebsiella Pneumoniae (only R to amp) 07/11/18 19:52 Stool GI panel negative Subjective: Denies urinary symptoms prior to admission. discussed goals of care and patient desires to get to the bottom of current acute episode. Objective: Vital Signs Temp Pulse Resp BP Pulse Ox 37.1 C 94 18 120/74 93 07/15/18 11:46 07/15/18 11:46 07/15/18 11:46 07/15/18 11:46 07/15/18 11:46 Laboratory Results 07/15/18 03:50 07/15/18 03:50 07/14/18 07/15/18 07/16/18 05:59 05:59 05:59 Intake Total 2015 2352 Output Total 20993 Balance -84 -1122 - Physical Exam General Appearance: alert, other (Remarkably more awake, very close to baseline) EENT: scleral icterus, dry mucous membranes, No thrush Respiratory: lungs clear, No accessory muscle use Neck: supple Cardiac/Chest: regular rate, rhythm Extremities: No pedal edema Abdomen: normal bowel sounds, other (protuberant but soft, fistula mid abdomen with brown material draining), No rebound, No rigid Skin: No rash Neuro/Psych: alert, normal mood/affect, oriented x 3 - Line/s RUE PICC Lines: No drainage, No erythema - Time Spent With Patient Time Spent with Patient: greater than 35 minutes (Care discussed with Dr. Kassy Yee and Dr. Sajan Perez) Time Spent with Patient: Greater than 35 minutes spent on this patients care, greater than 50% of time spent counseling, educating, and coordinating care regarding the above mentioned plan. ICD10 Worksheet Patient Problems: Problems Problem Status Onset Crohns disease of small intestine Acute Septic shock Acute Abdominal pain Acute Abdominal pain Acute Abdominal pain, chronic, right lower quadrant Acute Acute Crohn's disease Acute Altered mental status Acute Bronchitis Acute Constipation Acute Crohns disease Acute Fever Acute Intra-abdominal abscess Acute Malnutrition Acute Periumbilical hernia Acute Postoperative infection Acute Severe sepsis Acute Vomiting Acute Wound infection after surgery Acute
--- NOTE | 2018-07-15 15:14 | HOSPPROG ---
Hospitalist Progress Note Assessment/Plan: 72yo F with Crohn's s/p bowel resection with multiple complications including enterocutaneous fistula and subsequent surgeries here with septic shock. 1. Septic shock: Suspect intra-abdominal source. Vasopressors now off - ID consultation for help with antibiotic management (d/w Dr Benitez) - Continue cefepime. Discontinued vancomycin 07/13, flagyl 07/14 - Per discussion with ID, planning on repeat Abdominal US 2. Klebsiella pneumoniae bacteremia: 06/30 bottles. Likely gut translocation. Management as above. 3. Polymicrobial urine culture: UA essentially normal on admit. Antibiotics as above. 4. Anemia: - s/p 1u PRBC 07/14 with good response 5. Abdominal distention: Small ascites on initial CT which has increased in size with fluid resuscitation. Hold on paracentesis for now 6. Transaminitis: Likely r/t shock liver, improving. - Trend daily 7. Hypoxia: Due to compressive atelectasis from abdominal distention - Wean O2 as able 8. Leukocytosis: Impressive jump in setting of infection and steroids. Now improving with steroids stopped, antibiotics. 9. Crohn's disease with multiple complications - Has met with palliative in the past. Will monitor clinical course over coming days. If declining, would be hospice appropriate VTE ppx: LMWH Code: DNR Dispo: Remain inpatient I spent a total of 35 minutes of critical care time assessing patient. Subjective: Sitting up in chair today, eating breakfast. Feeling very weak. Says she is forcing herself to sit up and eat. Doesn't want to "go on." Low grade temp yesterday. Objective: Vital Signs Temp Pulse Resp BP Pulse Ox 37.1 C 94 18 120/74 93 07/15/18 11:46 07/15/18 11:46 07/15/18 11:46 07/15/18 11:46 07/15/18 11:46 Laboratory Results 07/15/18 03:50 07/15/18 03:50 07/14/18 07/15/18 07/16/18 05:59 05:59 05:59 Intake Total 2015 2352 Output Total 20992 Balance -84 -1122 PT 17.4 SEC (12.0-15.0) H 07/12/18 06:10 INR 1.41 (0.83-1.16) H 07/12/18 06:10 ICD10 Worksheet Patient Problems: Problems Problem Status Onset Crohns disease of small intestine Acute Septic shock Acute Abdominal pain Acute Abdominal pain Acute Abdominal pain, chronic, right lower quadrant Acute Acute Crohn's disease Acute Altered mental status Acute Bronchitis Acute Constipation Acute Crohns disease Acute Fever Acute Intra-abdominal abscess Acute Malnutrition Acute Periumbilical hernia Acute Postoperative infection Acute Severe sepsis Acute Vomiting Acute Wound infection after surgery Acute
[2018-07-15] MEDS: oxyCODONE IR 5 MG TAB PO PRN (16:08)
[2018-07-16] MEDS: ACETAMINOPHEN 325 MG TAB PO PRN ×3 (04:11→17:07)
[2018-07-16] MEDS: PREGABALIN 100 MG CAP PO SCH ×3 (08:19→22:02)
[2018-07-16] MEDS: NS 1,000 ML IV SCH (09:12)
[2018-07-16] MEDS ORDERED: ALTEPLASE 2 MG VIAL IVP PRN (09:59)
--- NOTE | 2018-07-16 10:02 | PCMIDPN ---
Assessment/Plan: Assessment 1. Septic shock: Marked improvement today, off pressors, now in Step-Down Unit , AF. Big improvement in leukocytosis compared to yesterday 2. Klebsiella bacteremia, unclear source considerations include intra-abdominal versus PICC line. Doubt urinary 3. Hepatitis due to septic shock, LFTs are stable to improving 4. Altered mental status likely related to septic shock : Resolved Plan 1. Repeat right upper quadrant ultrasound results pending 2. Narrow antibiotic coverage to ceftriaxone 1 g IV daily now that susceptibilities are known 3. DC PICC and central line Medications, Abx #3 ceftriaxone 1gm IV daily, #2 Microbiology 07/14/18 blood culture (2): NGTD 07/11/18 21:35 Urine,Clean Catch Urine Culture - Final Citrobacter Freundii Klebsiella Pneumoniae Pseudomonas Aeruginosa 07/11/18 20:45 Blood Cx 1/2: Klebsiella Pneumoniae (only R to amp) 07/11/18 19:52 Stool GI panel negative Subjective: continues to do well main c/o is drainage from enterocutaneous fistula Objective: Vital Signs Temp Pulse Resp BP Pulse Ox 37.0 C 89 19 113/76 98 07/16/18 07:16 07/16/18 07:16 07/16/18 07:16 07/16/18 07:16 07/16/18 07:16 Laboratory Results 07/16/18 06:00 07/16/18 06:00 07/15/18 07/16/18 07/17/18 05:59 05:59 05:59 Intake Total 2353 600 240 Output Total 3475 750 20 Balance -1122 -150 220 - Physical Exam General Appearance: alert, no apparent distress, thin, non-toxic EENT: pale conjunctiva, No scleral icterus Respiratory: lungs clear, No accessory muscle use Neck: supple Cardiac/Chest: regular rate, rhythm Extremities: No pedal edema Abdomen: normal bowel sounds, non-tender, soft, other (discomfort to deep palpation RLQ) Skin: warm/dry, pallor, No rash Neuro/Psych: alert, normal mood/affect, oriented x 3 - Time Spent With Patient Time Spent with Patient: greater than 35 minutes (care coordinated w dr foss and dr olson) Time Spent with Patient: Greater than 35 minutes spent on this patients care, greater than 50% of time spent counseling, educating, and coordinating care regarding the above mentioned plan. ICD10 Worksheet Patient Problems: Problems Problem Status Onset Bronchitis Acute Malnutrition Acute Crohns disease Acute Intra-abdominal abscess Acute Abdominal pain, chronic, right lower quadrant Acute Crohns disease of small intestine Acute Abdominal pain Acute Acute Crohn's disease Acute Altered mental status Acute Severe sepsis Acute Abdominal pain Acute Vomiting Acute Constipation Acute Fever Acute Postoperative infection Acute Periumbilical hernia Acute Wound infection after surgery Acute Septic shock Acute
--- NOTE | 2018-07-16 10:11 | HOSPPROG ---
Hospitalist Progress Note Assessment/Plan: 72yo F with Crohn's s/p bowel resection with multiple complications including enterocutaneous fistula and subsequent surgeries here with septic shock. 1. Septic shock: Suspect intra-abdominal source. Vasopressors off, hemodynamics stable. - IVF PRN 2. Klebsiella pneumoniae bacteremia: 06/30 bottles. Likely gut translocation. - ID following - Narrowed to ceftriaxone 1g qd - Repeat abdominal US results pending 3. Polymicrobial urine culture: UA essentially normal on admit. Antibiotics as above. 4. Anemia: - s/p 1u PRBC 07/14 with good response 5. Abdominal distention: Small ascites on initial CT which has increased in size with fluid resuscitation. Hold on paracentesis for now 6. Transaminitis: Likely r/t shock liver, improving. - Trend daily 7. Hypoxia: Due to compressive atelectasis from abdominal distention - Wean O2 as able 8. Leukocytosis: Impressive jump in setting of infection and steroids. Now improving with steroids stopped, antibiotics. 9. Crohn's disease with multiple complications - Has met with palliative in the past. Will monitor clinical course over coming days. If declining, would be hospice appropriate Access: ok to remove central line, will keep PICC (had for outpt TPN) as unable to get peripheral IV VTE ppx: LMWH Diet: holding TPN, regular Leiva: removed Code: DNR Dispo: Remain inpatient Subjective: Doing a little better, still extremely tired. Fistula still draining Objective: Vital Signs Temp Pulse Resp BP Pulse Ox 37.0 C 89 19 113/76 98 07/16/18 07:16 07/16/18 07:16 07/16/18 07:16 07/16/18 07:16 07/16/18 07:16 Laboratory Results 07/16/18 06:00 07/16/18 06:00 07/15/18 07/16/18 07/17/18 05:59 05:59 05:59 Intake Total 2353 600 240 Output Total 3475 750 20 Balance -1122 -150 220 PT 17.4 SEC (12.0-15.0) H 07/12/18 06:10 INR 1.41 (0.83-1.16) H 07/12/18 06:10 - Physical Exam Constitutional: no apparent distress, chronically ill appearing Eyes: PERRL Ears, Nose, Mouth, Throat: moist mucous membranes Cardiovascular: regular rate and rhythym, no murmur, rub, or gallop, No edema Respiratory: no respiratory distress, no rales or rhonchi, clear to auscultation Gastrointestinal: tenderness, distension, other (fistula) Genitourinary: no bladder fullness, no bladder tenderness, no renal bruits Skin: no rashes or abrasions, no fluctuance, no induration Musculoskeletal: generalized weakness Neurologic: AAOx3 Psychiatric: interacting appropriately ICD10 Worksheet Patient Problems: Problems Problem Status Onset Crohns disease of small intestine Acute Septic shock Acute Abdominal pain Acute Abdominal pain Acute Abdominal pain, chronic, right lower quadrant Acute Acute Crohn's disease Acute Altered mental status Acute Bronchitis Acute Constipation Acute Crohns disease Acute Fever Acute Intra-abdominal abscess Acute Malnutrition Acute Periumbilical hernia Acute Postoperative infection Acute Severe sepsis Acute Vomiting Acute Wound infection after surgery Acute
--- NOTE | 2018-07-16 11:04 | PDINTPN ---
Accounts Receivable Clerk Progress Note Assessment/Plan: 72 F with long history of Crohns disease and multiple surgeries related to it and complications such as fistulas, admitted 07/11 with copious diarrhea and hypotension. She was treated with the sepsis protocol but required high dose levophed for support, in addition to vasopressin and hydrocortisone. She expressed early that she was considering hospice given her poor overall quality of life and was made DNR on admission. She eventually grew Klebsiella in blood cultures. * Septic shock related to Klebsiella bacteremia, probably from a GI source. Her abdo CT showed only postop changes and no indication for additional surgical intervention (such as abscess drainage), but she continues to ooze purulent drainage from her known fistula. Now off levophed- target SBP>90. * Transaminitis- likely from shock liver as her LFTs continue to normalize. No further workup * Atelectasis- stable O2 requirement. Pulmonary toilet. * Abdominal pain treated with dilaudid. Gave her an extra 0.2 mg this am. OOB may help. * Enterocutaneous fistula continues to drain- plans include low volume high calorie feeds * Dispo- she is in considerable discomfort and may transition to hospice soon- defer to Dr. Yee for this discussion for now. * OK for SDU/floor Subjective: continues to improve Objective: Vital Signs Temp Pulse Resp BP Pulse Ox 37.0 C 78 14 120/69 94 07/16/18 07:16 07/16/18 10:00 07/16/18 10:00 07/16/18 10:00 07/16/18 10:00 Laboratory Results 07/16/18 06:00 07/16/18 06:00 07/15/18 07/16/18 07/17/18 05:59 05:59 05:59 Intake Total 2353 600 240 Output Total 3475 750 20 Balance -1122 -150 220 PT 17.4 SEC (12.0-15.0) H 07/12/18 06:10 INR 1.41 (0.83-1.16) H 07/12/18 06:10 Physical Exam - Physical Exam General Appearance: WD/WN, alert, no apparent distress EENT: PERRL/EOMI Neck: supple Respiratory: lungs clear, normal breath sounds, No respiratory distress, No accessory muscle use Cardiac/Chest: regular rate, rhythm, No edema Abdomen: normal bowel sounds, non-tender (mild), soft, distended, other ( fistula tract with drainage) Skin: normal color, warm/dry, No cyanosis Lymphatic: no adenopathy Extremities: No pedal edema Neuro/Psych: alert, normal mood/affect, oriented x 3 ICD10 Worksheet Patient Problems: Problems Problem Status Onset Crohns disease of small intestine Acute Septic shock Acute Abdominal pain Acute Abdominal pain Acute Abdominal pain, chronic, right lower quadrant Acute Acute Crohn's disease Acute Altered mental status Acute Bronchitis Acute Constipation Acute Crohns disease Acute Fever Acute Intra-abdominal abscess Acute Malnutrition Acute Periumbilical hernia Acute Postoperative infection Acute Severe sepsis Acute Vomiting Acute Wound infection after surgery Acute
--- NOTE | 2018-07-16 11:44 | SOAPPROG ---
SOAP Progress Note Assessment/Plan: Assessment: Assessment/Plan: 72-year-old woman well known to our service who has had multiple abdominal surgeries. Admitted with abdominal pain and failure to thrive. Hypotension d/t sepsis -off pressors Blood cultures - klebsiella Urine cultures - polymicrobial including Citrobacter, Klebsiella, and Pseudomonas. ? contamination Removing lines today Acute on Chronic anemia - received PRBC 07/15/2018 Increased output from enterocutaneous fistula - diligent skin care. Do not want to re-initiate TPN yet d/t transaminitis improving Low volume high caloric food Much improved today - biggest issue is her fistula today Subjective: Much better today. More alert and conversant Objective: General: Comfortable, lying in bed Lungs: Clear to auscultation bilaterally, No increased work of breathing Cardiac: Regular rate, no peripheral edema Abdomen: Much less distended, multiple surgical scars, no rebound or guarding. Skin: Warm and dry. Enterocutaneous fistula with increased output. Some christiano wound breakdown at this time. Psych: much improved Plan: 07/12/18 15:03 07/13/18 17:38 07/15/18 10:26 07/16/18 11:42 Objective: Vital Signs Temp Pulse Resp BP Pulse Ox 37.0 C 78 14 120/69 94 07/16/18 07:16 07/16/18 10:00 07/16/18 10:00 07/16/18 10:00 07/16/18 10:00 Laboratory Results 07/16/18 06:00 07/16/18 06:00 07/15/18 07/16/18 07/17/18 05:59 05:59 05:59 Intake Total 2353 600 240 Output Total 3475 750 20 Balance -1122 -150 220 PT 17.4 SEC (12.0-15.0) H 07/12/18 06:10 INR 1.41 (0.83-1.16) H 07/12/18 06:10 ICD10 Worksheet Patient Problems: Problems Problem Status Onset Crohns disease of small intestine Acute Septic shock Acute Abdominal pain Acute Abdominal pain Acute Abdominal pain, chronic, right lower quadrant Acute Acute Crohn's disease Acute Altered mental status Acute Bronchitis Acute Constipation Acute Crohns disease Acute Fever Acute Intra-abdominal abscess Acute Malnutrition Acute Periumbilical hernia Acute Postoperative infection Acute Severe sepsis Acute Vomiting Acute Wound infection after surgery Acute
[2018-07-16] MEDS ORDERED: NS 1,000 ML IV SCH (12:30)
[2018-07-16] MEDS: oxyCODONE IR 5 MG TAB PO PRN ×3 (13:06→22:04)
--- NOTE | 2018-07-16 14:21 | ASMTCMCOM ---
CM Note CM Note Notes: 07/16/2018 Case Management Note Discussed pt during rounds this morning. Planning on SNF discharge mid week. Discussed with [facility]. Referrals sent to SNFs required by Jeremy [facility]: [facility]. Case Management d/c poc: SNF rehab pending acceptance. Case Management to follow. Date Signed: 07/16/2018 02:21 PM Electronically Signed By:Rachna Montes RN
[2018-07-16] MEDS: LORazepam 1 MG TAB PO PRN (14:44)
[2018-07-17] MEDS: PREGABALIN 100 MG CAP PO SCH ×2 (09:00→15:15)
--- NOTE | 2018-07-17 11:51 | HOSPPROG ---
Hospitalist Progress Note Assessment/Plan: 72yo F with Crohn's s/p bowel resection with multiple complications including enterocutaneous fistula and subsequent surgeries here with septic shock. 1. Septic shock: Suspect intra-abdominal source. Vasopressors off, hemodynamics stable. - IVF PRN 2. Klebsiella pneumoniae bacteremia: 06/30 bottles. Likely gut translocation. - ID following - Narrowed to ceftriaxone 1g qd, defer to ID for duration of treatment course 3. Polymicrobial urine culture: UA essentially normal on admit. Antibiotics as above. 4. Anemia: - s/p 1u PRBC 07/14 with good response 5. Abdominal distention: Small ascites on initial CT which has increased in size with fluid resuscitation. Hold on paracentesis for now 6. Transaminitis: Likely r/t shock liver, improving. - Trend daily 7. Hypoxia: Due to compressive atelectasis from abdominal distention - Wean O2 as able 8. Leukocytosis: Impressive jump in setting of infection and steroids. Now improving with steroids stopped, antibiotics. 9. Crohn's disease with multiple complications - Has met with palliative in the past. Will monitor clinical course over coming days. If declining, would be hospice appropriate Access: ok to remove central line, will keep PICC (had for outpt TPN) as unable to get peripheral IV VTE ppx: LMWH Diet: holding TPN, regular Leiva: removed Code: DNR Dispo: Remain inpatient Subjective: Patient complains of continuing drainage from enterocutaneous fistula Objective: Vital Signs Temp Pulse Resp BP Pulse Ox 37.7 C 98 16 122/76 H 94 07/17/18 07:38 07/17/18 07:38 07/17/18 07:38 07/17/18 07:38 07/17/18 07:38 Laboratory Results 07/16/18 06:00 07/16/18 06:00 07/16/18 07/17/18 07/18/18 05:59 05:59 05:59 Intake Total 600 1420 Output Total 750 670 Balance -150 750 PT 17.4 SEC (12.0-15.0) H 07/12/18 06:10 INR 1.41 (0.83-1.16) H 07/12/18 06:10 ICD10 Worksheet Patient Problems: Problems Problem Status Onset Crohns disease of small intestine Acute Septic shock Acute Abdominal pain Acute Abdominal pain Acute Abdominal pain, chronic, right lower quadrant Acute Acute Crohn's disease Acute Altered mental status Acute Bronchitis Acute Constipation Acute Crohns disease Acute Fever Acute Intra-abdominal abscess Acute Malnutrition Acute Periumbilical hernia Acute Postoperative infection Acute Severe sepsis Acute Vomiting Acute Wound infection after surgery Acute
[2018-07-17] MEDS: oxyCODONE IR 5 MG TAB PO PRN ×2 (12:49→20:40)
--- NOTE | 2018-07-17 14:01 | ASMTCMCOM ---
CM Note CM Note Notes: Spoke with Ashley with [facility] and she would like to know the facility the patient and family picks for rehab. ([phone]) [facility] has accepted but the other 3 need further information for a decision. Left a message for Annika Lan, patient's daughter and MDPOA regarding their choice of facility for SNF rehab. CM will follow. Date Signed: 07/17/2018 02:00 PM Electronically Signed By:Joselin Bowling LCSW
[2018-07-17] MEDS: ENOXAPARIN 40 MG/0.4 ML SYR SC SCH (15:16)
--- NOTE | 2018-07-17 16:34 | PCMIDPN ---
Assessment/Plan: Assessment: 72-year-old woman with septic shock secondary to Klebsiella pneumoniae bloodstream infection with likely source translocation across sub clinically inflamed GI mucosa due to underlying Crohn's disease. Overall improvement with decreased transaminases, mental status has returned to normal, and no ongoing vasopressor support. New fever overnight, patient did not manifest the fever with symptoms and was not aware of the fever. No new focal signs or symptoms to suggest a new source of infection. 1. New fever in ICU patient without focal signs or symptoms 2. Klebsiella pneumoniae bloodstream infection 3. Septic shock secondary to 1., resolved 4. Shock liver, improved 5. Crohn's disease with enterocutaneous fistula, no immunosuppressive medications for years 6. Neutrophilic leukocytosis, improved 7. Asymptomatic bacteriuria present on admission with pyuria, pyuria resolved Plan: 1. Repeat blood cultures, UA, urine culture 2. Continue ceftriaxone 1 g daily 3. Exchange PICC line 4. Discussed antibiotic side effects to include antibiotic associated diarrhea, rash, C diff colitis 07/17/18 16:29 07/17/18 16:35 07/17/18 16:36 07/17/18 16:41 07/17/18 16:44 Subjective: Fever yesterday afternoon, not experienced by patient. No chills or diaphoresis. No rash. Loose stools per rectum continue, as well as stool output through enterocutaneous fistula. Kenzie fistula area very tender, unchanged from prior to admission. Objective: Vital Signs Temp Pulse Resp BP Pulse Ox 37.1 C 102 H 16 102/73 100 07/17/18 16:00 07/17/18 16:00 07/17/18 16:00 07/17/18 16:00 07/17/18 16:00 Laboratory Results 07/16/18 06:00 07/16/18 06:00 07/16/18 07/17/18 07/18/18 05:59 05:59 05:59 Intake Total 600 1420 Output Total 750 670 150 Balance -150 750 -150 Microbiology 07/11/18 21:35 Urine,Clean Catch Urine Culture - Final Citrobacter Freundii Klebsiella Pneumoniae Pseudomonas Aeruginosa One [place] Type 07/11/18 20:45 Blood Blood Culture - Final 07/11/18 20:45 Blood Blood Panel (PCR) - Final Klebsiella Pneumoniae Ssp Pneu Klebsiella Pneumoniae 07/11/18 20:22 Blood Blood Culture - Final 07/11/18 19:52 Stool Gastrointestinal Tract Panel (PCR) - Final No Organism Detected By Pcr Laboratory Tests 07/15/18 07/16/18 03:50 06:00 WBC 19.80 H 10.59 H Plt Count 181 165 - Physical Exam General Appearance: alert, no apparent distress, thin, non-toxic EENT: No scleral icterus Respiratory: lungs clear, normal breath sounds, No respiratory distress, No crackles, No wheezing Neck: full range of motion, supple Cardiac/Chest: regular rate, rhythm, systolic murmur Extremities: normal inspection, No inflammation, No swelling, No erythema Abdomen: normal bowel sounds, soft (Enterocutaneous fistula exit site left lower quadrant, surrounding area of erythematous skin exquisitely tender to palpation, indurated with no fluctuance) Skin: normal color, No rash Neuro/Psych: alert, depressed affect - Time Spent With Patient Time Spent with Patient: greater than 35 minutes (Greater than 35 min spent at bedtime with patient discussing source of Klebsiella bloodstream infection, treatment plan, potential antibiotic side effects, long-term planning to prevent recurrence infection) Time Spent with Patient: Greater than 35 minutes spent on this patients care, greater than 50% of time spent counseling, educating, and coordinating care regarding the above mentioned plan. ICD10 Worksheet Patient Problems: Problems Problem Status Onset Bronchitis Acute Malnutrition Acute Crohns disease Acute Intra-abdominal abscess Acute Abdominal pain, chronic, right lower quadrant Acute Crohns disease of small intestine Acute Abdominal pain Acute Acute Crohn's disease Acute Altered mental status Acute Severe sepsis Acute Abdominal pain Acute Vomiting Acute Constipation Acute Fever Acute Postoperative infection Acute Periumbilical hernia Acute Wound infection after surgery Acute Septic shock Acute
--- NOTE | 2018-07-17 16:56 | SOAPPROG ---
SOAP Progress Note Assessment/Plan: Assessment/Plan: 72-year-old woman well known to our service who has had multiple abdominal surgeries. Admitted with abdominal pain and failure to thrive. New fever overnight - ID following. Abx narrowed to ceftriaxone. Hypotension d/t sepsis - off pressors Blood cultures - klebsiella. Repeat cultures pending. Urine cultures - polymicrobial including Citrobacter, Klebsiella, and Pseudomonas. ? contamination Low volume high caloric foods - dietary consult Increased output from enterocutaneous fistula - continue diligent skin care. Do not want to re-initiate TPN yet d/t transaminitis improving Acute on chronic anemia - 1u PRBC on 07/15/18. H/H stable. Subjective: weak and tired. skin and fistula are her biggest concerns. night nurse attached suction to dressing with improvement. Objective: General: Ill-appearing woman, uncomfortable Lungs: no increased work of breathing Cardiac: no peripheral edema Abdomen: less distended, multiple surgical scars, no rebound or guarding Skin: Warm and dry. Enterocutaneous fistula with increased output. some christiano wound breakdown. Psych: improved, tearful Objective: Vital Signs Temp Pulse Resp BP Pulse Ox 37.1 C 102 H 16 102/73 100 07/17/18 16:00 07/17/18 16:00 07/17/18 16:00 07/17/18 16:00 07/17/18 16:00 Laboratory Results 07/16/18 06:00 07/16/18 06:00 07/16/18 07/17/18 07/18/18 05:59 05:59 05:59 Intake Total 600 1420 Output Total 750 670 150 Balance -150 750 -150 PT 17.4 SEC (12.0-15.0) H 07/12/18 06:10 INR 1.41 (0.83-1.16) H 07/12/18 06:10 ICD10 Worksheet Patient Problems: Problems Problem Status Onset Crohns disease of small intestine Acute Septic shock Acute Abdominal pain Acute Abdominal pain Acute Abdominal pain, chronic, right lower quadrant Acute Acute Crohn's disease Acute Altered mental status Acute Bronchitis Acute Constipation Acute Crohns disease Acute Fever Acute Intra-abdominal abscess Acute Malnutrition Acute Periumbilical hernia Acute Postoperative infection Acute Severe sepsis Acute Vomiting Acute Wound infection after surgery Acute
--- NOTE | 2018-07-17 17:07 | WOCRNPDOC ---
WOCRN Advanced Assessment Note - Skin Integrity Problem, Advanced Assess Left Lower Abdomen Surgical Wound/Incision Dressing Type: ABD Pad Dressing Description: Clean/Dry, Intact Exudate Characteristic(s): Succus Integumentary Issue Intervention: Dressing Changed Site Measurement - Head-to-Toe Length X Width X Depth (cm): 0.7x0.5 Skin Integrity Problem Comment: Kenzie fistula skin severely denuded and weeping, however it has improved in appearance since previous assessment in May. There is one active fistula at this time, as opposed to two. The fistula that is currently active is located approximately 2 cm left of the midline. The creases at 9 oclock and 3 oclock were filled with Brava paste and pieces of adapt ring after crusting lightly with skin prep and powder. One piece of adapt ring "pie" (1/4 of a small adapt ring) placed at 3 oclock to the fistula mouth. 3 inch flat drain pouch from coloplast applied. Fistula was not producing much at this time. Patient and daughter Annika in room for appliance placment. They are aware that it will take a few days for the pouches to begin adhering well. As the skin begins to heal and the drainage is kept off of it, the pouches will begin to stick better. All questions answered and patient has agreed to leave pouch intact. Wound care will follow.
[2018-07-18] MEDS: PREGABALIN 100 MG CAP PO SCH ×4 (00:30→22:06)
[2018-07-18] MEDS: ACETAMINOPHEN 325 MG TAB PO PRN (03:01)
[2018-07-18 05:49] LABS: PLATELET COUNT 179 10^3/uL (150-400)
[2018-07-18] MEDS ORDERED: POTASSIUM CL 20 MEQ TAB PO ONE (06:26)
[2018-07-18] MEDS: POTASSIUM Cl (KCl) 100 ML IV SCH ×2 (06:52→08:31)
[2018-07-18] MEDS: ENOXAPARIN 40 MG/0.4 ML SYR SC SCH (08:31)
--- NOTE | 2018-07-18 09:47 | PDIAF ---
- Diagnosis Diagnosis: Klebsiella bacteremia Code Status: Do Not Resuscitate - Medication Management Counter Former Antibiotics: Ceftriaxone 1 g IV daily Counter Former Antibiotic Stop Date: 07/20/18 Discharge Medications: electronically signed and located in the Home Medication List. PICC Care - Routine: Yes - Orders Services needed: Home Mcfp Care Face to Face: I certify that this patient was under my care and that I had the required [id number] encounter meeting the encounter requirements on the discharge day. My findings support the fact that the patient is homebound as defined in Home Care Face to Face Continued: CMS Chapter 7 Medicare Benefits Manual 30.1.1 , The condition of the patient is such that there exists a normal inability to leave home and consequently, leaving home would require a considerable and taxing effort. Isolation Type: None - Labs/Radiology Call or Fax Lab and Imaging Results to: Insert medicines - Follow Up Care Current Providers and Referrals: Yanet Winter MD [Primary Care Provider] - As per Instructions
--- NOTE | 2018-07-18 09:49 | PDIAF ---
- Diagnosis Diagnosis: Klebsiella bacteremia Code Status: Do Not Resuscitate - Medication Management Clerical Secretary Antibiotics: Ceftriaxone 1 g IV daily Clerical Secretary Antibiotic Stop Date: 07/21/18 Discharge Medications: electronically signed and located in the Home Medication List. PICC Care - Routine: Yes - Orders Services needed: Home [facility] Care Face to Face: I certify that this patient was under my care and that I had the required [id number] encounter meeting the encounter requirements on the discharge day. My findings support the fact that the patient is homebound as defined in Home Care Face to Face Continued: CMS Chapter 7 Medicare Benefits Manual 30.1.1 , The condition of the patient is such that there exists a normal inability to leave home and consequently, leaving home would require a considerable and taxing effort. Isolation Type: None - Labs/Radiology Call or Fax Lab and Imaging Results to: Insert medicines - Follow Up Care Current Providers and Referrals: Yanet Winter MD [Primary Care Provider] - As per Instructions
--- NOTE | 2018-07-18 09:49 | PCMIDPN ---
Assessment/Plan: Assessment 1. Septic shock due to bacteremia: Resolved 2. Klebsiella bacteremia, unclear source considerations include intra-abdominal source but can't completely rule out PICC. Repeat blood cultures were performed due to the complexity of patient's intra-abdominal process. Repeat ultrasound 07/15/2018 showed resolution of the complex fluid collection in the right upper quadrant. 3. Hepatitis due to septic shock, LFTs improving 4. Fever on 07/16/2018 without new localizing symptoms and continued improvement in WBC, suspect not significant. Both sets of repeat blood cultures on July 14 and July 16 are negative. 5. Leukocytosis: Resolved 6. Crohn's disease with enterocutaneous fistula . Repeat surgeries nearly impossible due to massive intra-abdominal scarring Plan 1. Complete therapy with ceftriaxone 1 g IV daily, stop 07/21/18 2. ID follow-up is not needed 3. DC PICC line at the end of ceftriaxone and unless decision made to resume TPN 4. Discharge okay from ID perspective, interagency completed Medications, Abx #7/10 ceftriaxone 1gm IV daily, #4 Microbiology 07/16/18 blood cultures (2): NGTD 07/14/18 blood culture (2): NGTD 07/11/18 21:35 Urine,Clean Catch Urine Culture - Final Citrobacter Freundii Klebsiella Pneumoniae Pseudomonas Aeruginosa 07/11/18 20:45 Blood Cx 06/28: Klebsiella Pneumoniae (only R to amp) 07/11/18 19:52 Stool GI panel negative Subjective: Feeling better, still with multiple bowel movements daily. Bothered by drainage from enterocutaneous fistula, no abdominal pain, appetite is okay. Daughter is at bedside Objective: Vital Signs Temp Pulse Resp BP Pulse Ox 36.7 C 104 H 18 98/74 L 94 07/18/18 08:00 07/18/18 08:00 07/18/18 08:00 07/18/18 08:00 07/18/18 08:00 Laboratory Results 07/18/18 05:42 07/18/18 05:42 07/17/18 07/18/18 07/19/18 05:59 05:59 05:59 Intake Total 1420 1390 Output Total 670 340 25 Balance 750 1050 -25 - Physical Exam General Appearance: alert, no apparent distress, thin, non-toxic (Cheerful), other (Sitting up and conversational) EENT: pale conjunctiva, No scleral icterus, No thrush Respiratory: lungs clear, No accessory muscle use Neck: supple Cardiac/Chest: regular rate, rhythm Extremities: No pedal edema Abdomen: other (Abdomen is less distended, soft, no tenderness, fistula mid abdomen is managed with ostomy bag.) Pelvic Exam: No au Skin: pallor, No rash Neuro/Psych: alert, normal mood/affect, oriented x 3 - Time Spent With Patient Time Spent with Patient: greater than 35 minutes (Care coordinated with hospitalist) Time Spent with Patient: Greater than 35 minutes spent on this patients care, greater than 50% of time spent counseling, educating, and coordinating care regarding the above mentioned plan. ICD10 Worksheet Patient Problems: Problems Problem Status Onset Crohns disease of small intestine Acute Septic shock Acute Abdominal pain Acute Abdominal pain Acute Abdominal pain, chronic, right lower quadrant Acute Acute Crohn's disease Acute Altered mental status Acute Bronchitis Acute Constipation Acute Crohns disease Acute Fever Acute Intra-abdominal abscess Acute Malnutrition Acute Periumbilical hernia Acute Postoperative infection Acute Severe sepsis Acute Vomiting Acute Wound infection after surgery Acute
--- NOTE | 2018-07-18 13:57 | HOSPPROG ---
Hospitalist Progress Note Assessment/Plan: 72yo F with Crohn's s/p bowel resection with multiple complications including enterocutaneous fistula and subsequent surgeries here with septic shock. 1. Septic shock: Suspect intra-abdominal source. Vasopressors off, hemodynamics stable. - Resolved 2. Klebsiella pneumoniae bacteremia: 06/30 bottles. Likely gut translocation. - ID following - Narrowed to ceftriaxone 1g qd, 10 day total course 3. Polymicrobial urine culture: UA essentially normal on admit. Antibiotics as above. 4. Anemia: - s/p 1u PRBC 07/14 with good response 5. Abdominal distention: Small ascites on initial CT which has increased in size with fluid resuscitation. Hold on paracentesis for now 6. Transaminitis: Likely r/t shock liver, improving. - Trend daily 7. Hypoxia: Due to compressive atelectasis from abdominal distention - Wean O2 as able 8. Leukocytosis: Impressive jump in setting of infection and steroids. Now improving with steroids stopped, antibiotics. 9. Crohn's disease with multiple complications - Has met with palliative in the past. Will monitor clinical course over coming days. If declining, would be hospice appropriate Access: Keep PICC (had for outpt TPN) as unable to get peripheral IV VTE ppx: LMWH Diet: holding TPN, regular Leiva: removed Code: DNR Dispo: Remain inpatient, plan for discharge tomorrow with Home Care Subjective: Patient reports feeling better this morning, drainge from fistula is now contained Objective: Vital Signs Temp Pulse Resp BP Pulse Ox 37.4 C 95 18 109/71 92 07/18/18 12:00 07/18/18 12:00 07/18/18 12:00 07/18/18 12:00 07/18/18 12:00 Laboratory Results 07/18/18 05:42 07/18/18 05:42 07/17/18 07/18/18 07/19/18 05:59 05:59 05:59 Intake Total 1420 1390 500 Output Total 670 340 25 Balance 750 1050 475 PT 17.4 SEC (12.0-15.0) H 07/12/18 06:10 INR 1.41 (0.83-1.16) H 07/12/18 06:10 - Physical Exam Constitutional: chronically ill appearing Eyes: PERRL Ears, Nose, Mouth, Throat: moist mucous membranes Cardiovascular: regular rate and rhythym Respiratory: no respiratory distress Gastrointestinal: soft, non-tender abdomen, other (enterocutaneous fistula present with ostomy bag around it) Skin: normal color Musculoskeletal: generalized weakness Neurologic: AAOx3 Psychiatric: interacting appropriately ICD10 Worksheet Patient Problems: Problems Problem Status Onset Crohns disease of small intestine Acute Septic shock Acute Abdominal pain Acute Abdominal pain Acute Abdominal pain, chronic, right lower quadrant Acute Acute Crohn's disease Acute Altered mental status Acute Bronchitis Acute Constipation Acute Crohns disease Acute Fever Acute Intra-abdominal abscess Acute Malnutrition Acute Periumbilical hernia Acute Postoperative infection Acute Severe sepsis Acute Vomiting Acute Wound infection after surgery Acute
--- NOTE | 2018-07-18 15:46 | ASMTCMCOM ---
CM Note CM Note Notes: Pt tranfered to . CM met with pt, her [facility] home care nurse September who is advocating for pt to return home with additional home care supports provided by [facility]. At this time pt and her daughter are refusing any of the SNF facilities that are contracted with [facility]. Pt's daughter is supportive but lives in [place] so cannot stay with pt. CM spoke with FERMIN Ramirez at [facility] ([phone]). CM updated [facility]. CM will need to speak confirm coverage that [facility] is able to provide and confirm with [facility]/Family that they are agreeable with plan. Plan: [facility] with unskilled care from [place]. Date Signed: 07/18/2018 03:45 PM Electronically Signed By:YULI Rai
[2018-07-18] MEDS: HYDROmorphONE/DILAUDID 1 MG/ML INJ IVP PRN (18:47)
[2018-07-19 03:46] LABS: PLATELET COUNT 223 10^3/uL (150-400)
--- NOTE | 2018-07-19 08:45 | PCMIDPN ---
Assessment/Plan: Assessment 1. Increased Diarrhea and fever, tachy. WBC remains normal. Both sets of repeat blood cultures on July 14 and July 16 are negative. 2. Klebsiella bacteremia, likely intra-abdominal source. Repeat ultrasound 2018 showed resolution of the complex fluid collection in the right upper quadrant. 3. Hepatitis due to septic shock, LFTs continue to improve 4. Crohn's disease with enterocutaneous fistula . Drainage from fistula has slowed down Plan 1. send C diff PCR, if negative discharge per primary team 2. Complete therapy with ceftriaxone 1 g IV daily, stop 07/21/18 3. ID follow-up is not needed 4. DC PICC line at the end of ceftriaxone and unless decision made to resume TPN Medications, Abx #8/10 ceftriaxone 1gm IV daily, #5 Microbiology 07/16/18 blood cultures (2): NGTD 07/14/18 blood culture (2): NGTD 07/11/18 21:35 Urine,Clean Catch Urine Culture - Final Citrobacter Freundii Klebsiella Pneumoniae Pseudomonas Aeruginosa 07/11/18 20:45 Blood Cx 06/28: Klebsiella Pneumoniae (only R to amp) 07/11/18 19:52 Stool GI panel negative Patient examined and care coordinated with Dr. Yee. Care coordinated with Dr. Price Subjective: Desperately wanting to go home but having liquid, very urgent bowel movement every 1-2 hours. No associated abdominal pain. No vomiting or nausea Objective: Vital Signs Temp Pulse Resp BP Pulse Ox 37.3 C 110 H 21 H 114/69 99 07/19/18 08:00 07/19/18 08:00 07/19/18 08:00 07/19/18 08:00 07/19/18 08:00 Laboratory Results 07/19/18 03:30 07/19/18 03:30 07/18/18 07/19/18 07/20/18 05:59 05:59 05:59 Intake Total 1390 740 Output Total 340 25 Balance 1050 715 - Physical Exam General Appearance: alert, thin, non-toxic EENT: pale conjunctiva, No scleral icterus Respiratory: lungs clear, No accessory muscle use Neck: supple Cardiac/Chest: tachycardia Extremities: No pedal edema Abdomen: normal bowel sounds, non-tender, soft, No peritoneal signs Skin: pallor, No rash Neuro/Psych: alert, normal mood/affect, oriented x 3 - Line/s RUE PICC Lines: No drainage, No erythema - Time Spent With Patient Time Spent with Patient: greater than 35 minutes Time Spent with Patient: Greater than 35 minutes spent on this patients care, greater than 50% of time spent counseling, educating, and coordinating care regarding the above mentioned plan. ICD10 Worksheet Patient Problems: Problems Problem Status Onset Crohns disease of small intestine Acute Septic shock Acute Abdominal pain Acute Abdominal pain Acute Abdominal pain, chronic, right lower quadrant Acute Acute Crohn's disease Acute Altered mental status Acute Bronchitis Acute Constipation Acute Crohns disease Acute Fever Acute Intra-abdominal abscess Acute Malnutrition Acute Periumbilical hernia Acute Postoperative infection Acute Severe sepsis Acute Vomiting Acute Wound infection after surgery Acute
--- NOTE | 2018-07-19 09:08 | SOAPPROG ---
SOAP Progress Note Assessment/Plan: Assessment: Assessment/Plan: 72-year-old woman well known to our service who has had multiple abdominal surgeries. Admitted with abdominal pain and failure to thrive. EC fistula sealed Tolerating diet Now with increased stool output about 7 times overnight C diff If positive will treat If negative, can start immodium. Dispo depending on if stool output is controlled Subjective: Wants to go home. A lot of stool output Objective: General: Comfortable, lying in bed Abdomen: Much less distended, multiple surgical scars, no rebound or guarding. SOFT Skin: Warm and dry. Enterocutaneous fistula with no output. Psych: a bit tearful Plan: 07/12/18 15:03 07/13/18 17:38 07/15/18 10:26 07/16/18 11:42 07/19/18 09:05 Objective: Vital Signs Temp Pulse Resp BP Pulse Ox 37.3 C 110 H 21 H 114/69 99 07/19/18 08:00 07/19/18 08:00 07/19/18 08:00 07/19/18 08:00 07/19/18 08:00 Laboratory Results 07/19/18 03:30 07/19/18 03:30 07/18/18 07/19/18 07/20/18 05:59 05:59 05:59 Intake Total 1390 740 Output Total 340 25 Balance 1050 715 PT 17.4 SEC (12.0-15.0) H 07/12/18 06:10 INR 1.41 (0.83-1.16) H 07/12/18 06:10 ICD10 Worksheet Patient Problems: Problems Problem Status Onset Crohns disease of small intestine Acute Septic shock Acute Abdominal pain Acute Abdominal pain Acute Abdominal pain, chronic, right lower quadrant Acute Acute Crohn's disease Acute Altered mental status Acute Bronchitis Acute Constipation Acute Crohns disease Acute Fever Acute Intra-abdominal abscess Acute Malnutrition Acute Periumbilical hernia Acute Postoperative infection Acute Severe sepsis Acute Vomiting Acute Wound infection after surgery Acute
[2018-07-19] MEDS: ENOXAPARIN 40 MG/0.4 ML SYR SC SCH (09:45)
[2018-07-19] MEDS: PREGABALIN 100 MG CAP PO SCH ×2 (09:46→15:15)
[2018-07-19 11:35] VITALS: BP 101/88
[2018-07-19] MEDS: ACETAMINOPHEN 325 MG TAB PO PRN (15:17)
[2018-07-19] MEDS ORDERED: LOPERAMIDE HCL 2 MG CAP PO ONE (15:43)
--- NOTE | 2018-07-19 15:45 | HOSPPROG ---
Hospitalist Progress Note Assessment/Plan: 72yo F with Crohn's s/p bowel resection with multiple complications including enterocutaneous fistula and subsequent surgeries here with septic shock. 1. Septic shock: Suspect intra-abdominal source. Vasopressors off, hemodynamics stable. - IVF PRN 2. Klebsiella pneumoniae bacteremia: 06/30 bottles. Likely gut translocation. - ID following - Narrowed to ceftriaxone 1g qd, defer to ID for duration of treatment course 3. Polymicrobial urine culture: UA essentially normal on admit. Antibiotics as above. 4. Anemia: - s/p 1u PRBC 07/14 with good response 5. Abdominal distention: Small ascites on initial CT which has increased in size with fluid resuscitation. Hold on paracentesis for now 6. Transaminitis: Likely r/t shock liver, improving. - Trend daily 7. Hypoxia: Due to compressive atelectasis from abdominal distention - Wean O2 as able 8. Leukocytosis: Impressive jump in setting of infection and steroids. Now improving with steroids stopped, antibiotics. 9. Crohn's disease with multiple complications - Has met with palliative in the past. Will monitor clinical course over coming days. If declining, would be hospice appropriate home today > 30 minutes see dc summary Subjective: cdiff neg. very anxious for dc Objective: Vital Signs Temp Pulse Resp BP Pulse Ox 36.8 C 100 17 101/88 H 99 07/19/18 11:27 07/19/18 11:27 07/19/18 11:27 07/19/18 11:27 07/19/18 11:27 Microbiology 07/17/18 11:50 Urine Culture - Final Urine,Clean Catch Laboratory Results 07/19/18 03:30 07/19/18 03:30 07/18/18 07/19/18 07/20/18 05:59 05:59 05:59 Intake Total 1390 740 Output Total 340 25 Balance 1050 715 PT 17.4 SEC (12.0-15.0) H 07/12/18 06:10 INR 1.41 (0.83-1.16) H 07/12/18 06:10 - Physical Exam Constitutional: no apparent distress, appears nourished Eyes: PERRL, anicteric sclera Ears, Nose, Mouth, Throat: moist mucous membranes, hearing normal, ears appear normal Cardiovascular: regular rate and rhythym, no murmur, rub, or gallop Respiratory: no respiratory distress, no rales or rhonchi Gastrointestinal: normoactive bowel sounds, soft, non-tender abdomen Genitourinary: no bladder fullness, No au in urethra Skin: warm, normal color Musculoskeletal: full muscle strength Neurologic: AAOx3 ICD10 Worksheet Patient Problems: Problems Problem Status Onset Crohns disease of small intestine Acute Septic shock Acute Abdominal pain Acute Abdominal pain Acute Abdominal pain, chronic, right lower quadrant Acute Acute Crohn's disease Acute Altered mental status Acute Bronchitis Acute Constipation Acute Crohns disease Acute Fever Acute Intra-abdominal abscess Acute Malnutrition Acute Periumbilical hernia Acute Postoperative infection Acute Severe sepsis Acute Vomiting Acute Wound infection after surgery Acute
--- NOTE | 2018-07-19 15:47 | ASMTLACE ---
LACE Length of stay for Answers: 7-13 days current admission Acuity / Level of Answers: Yes Care: Did the patient have an inpatient admission? Comorbidities - select Answers: Opioid dependence all that apply / Chronic pain Other Notes: Crohn's disease # of Emergency department Answers: 5-8 visits in the last 6 months Score: 17 Date Signed: 07/19/2018 03:47 PM Electronically Signed By:Amelia Ross RN
--- NOTE | 2018-07-19 15:51 | ASMTDCNOTE ---
Case Management Discharge Discharge Order Complete? Answers: Yes Patient to Obtain Answers: via Family Medications Transportation Arranged Answers: Family/Friends Faxed Final Orders Answers: Yes Agency/Facility Transfer Answers: Yes Report Printed & Faxed to Receiving Agency Family Notified Answers: Yes Discharge Comments Notes: Patient medically cleared for discharge. Jeremy Pace notified, [facility] and [facility] Date Signed: 07/19/2018 03:51 PM Electronically Signed By:Amelia Ross RN
--- NOTE | 2018-07-19 15:57 | PDIAF ---
- Diagnosis Diagnosis: Klebsiella bacteremia Code Status: Do Not Resuscitate - Medication Management Smoke Inspector Antibiotics: Ceftriaxone 1 g IV daily Smoke Inspector Antibiotic Stop Date: 07/21/18 Discharge Medications: electronically signed and located in the Home Medication List. PICC Care - Routine: Yes - Orders Services needed: Home Penitentiary Care Face to Face: I certify that this patient was under my care and that I had the required [id number] encounter meeting the encounter requirements on the discharge day. My findings support the fact that the patient is homebound as defined in Home Care Face to Face Continued: CMS Chapter 7 Medicare Benefits Manual 30.1.1 , The condition of the patient is such that there exists a normal inability to leave home and consequently, leaving home would require a considerable and taxing effort. Isolation Type: None - Labs/Radiology Call or Fax Lab and Imaging Results to: Insert medicines - Follow Up Care Current Providers and Referrals: Yanet Winter MD [Primary Care Provider] - As per Instructions
--- NOTE | 2018-07-20 09:40 | ASDISCHSUM ---
Discharge Information Plan Status:IV ABX/Infusion Medically Cleared to Leave:07/18/2018 Discharge Date:07/19/2018 05:13 PM D/C Disposition:Home Health Service ADT D/C Disposition:Home Health Service Projected Discharge Date:07/18/2018 11:00 AM Transportation at D/C: Discharge Delay Reason: Follow-Up Date:07/18/2018 11:00 AM Discharge Slot: Final Diagnosis: Placement Information Referral Type:*Long-Term/SNF Referral ID:[id number] Provider Name: Address 1: Phone Number: Address 2: Fax Number: City: Selection Factors: State: Referral Type:Home Infusion Referral ID:[id number] Provider Name:[facility] Address 1:[address] Address 2: City:[place] Selection Factors: State:[place] Referral Type:*Home Health Care Services Referral ID:[id number] Provider Name:[facility] Address 1:[address] [facility] [address] Address 2: City:[place] Selection Factors: State:[place] Patient Contact Information Contact Name:JOAQUINA Relationship:Daughter Address:[address] [place] City:[facility] Phone: [facility]/Zip Code:[place] [address] Email: Financial Information Financial Class:HMO and PPO Plans Primary Plan Desc:[employer] Primary Plan Number:[id number] Secondary Plan Desc: Secondary Plan Number: Assessment Information LACE LACE Length of stay for Answers: 7-13 days current admission Acuity / Level of Answers: Yes Care: Did the patient have an inpatient admission? Comorbidities - select Answers: Opioid dependence all that apply / Chronic pain Other Notes: Crohn's disease # of Emergency department Answers: 5-8 visits in the last 6 months Score: 17 Date Signed: 07/19/2018 03:47 PM Electronically Signed By:Amelia Ross RN [facility] Initial CM Assessment Living Arrangements What is your living Answers: With Partner arrangement? Who do you live with? Type Of Residence What kind of residence do Answers: Apartment you live in? Discharge Plan Comments Coordination Status Comments Notes: Patient is a 72yo single female with a partner who has had multiple admissions with [facility]. She has a hx of Crohn's disease and presents with profuse diarrhea and abdominal cramping. Patient admitted for bronchitis, malnutrition, Crohn's, intra-abdominal abscess, and altered mental status. OT/PT evals have been ordered. Patient has [employer] insurance. The protective services social worker is Veronica ([phone]). CM will follow. Date Signed: 07/12/2018 12:35 PM Electronically Signed By:Joselin Bowling LCSW [facility] CM Progress Note CM Note CM Note Notes: OT/PT have recommended SNF rehab for the patient. In rounds, Dr. Yee spoke of giving the patient some more time to see if she improves. The patient may be interested in comfort measures as she is fatigued with all the medical interventions. Wound care is involved. Dr. Yee has spoken with the patient's daughters about options and will consider hospice conversation on Tuesday if there is no improvement. Discharge plan TBD depending on patient's progress and what else she wants to do. CM will follow. Date Signed: 07/14/2018 03:14 PM Electronically Signed By:Joselin Bowling LCSW [facility] CM Progress Note CM Note CM Note Notes: 07/16/2018 Case Management Note Discussed pt during rounds this morning. Planning on SNF discharge mid week. Discussed with [facility]. Referrals sent to SNFs required by [facility]: [facility], [facility] and [facility]. Case Management d/c poc: SNF rehab pending acceptance. Case Management to follow. Date Signed: 07/16/2018 02:21 PM Electronically Signed By:Rachna Montes RN [facility] CM Progress Note CM Note CM Note Notes: Spoke with Ashley with [facility] and she would like to know the facility the patient and family picks for rehab. ([phone]) [facility] accepted but the other 3 need further information for a decision. Left a message for Annika Lan, patient's daughter and [facility]DPBHARATI regarding their choice of facility for SNF rehab. CM will follow. Date Signed: 07/17/2018 02:00 PM Electronically Signed By:Joselin Bowling LCSW [facility] CM Progress Note CM Note CM Note Notes: Pt tranfered to . FERMIN met with pt, her [facility] home care nurse September who is advocating for pt to return home with additional home care supports provided by [facility]. At this time pt and her daughter are refusing any of the SNF facilities that are contracted with [facility]. Pt's daughter is supportive but lives in [place] so cannot stay with pt. CM spoke with FERMIN Ramirez at [facility] ([phone]). CM updated [facility]. CM will need to speak confirm coverage that [facility] is able to provide and confirm with [facility]/Family that they are agreeable with plan. Plan: [facility] with unskilled care from [facility]. Date Signed: 07/18/2018 03:45 PM Electronically Signed By:YULI Rai Case Management Discharge Plan Note Case Management Discharge Discharge Order Complete? Answers: Yes Patient to Obtain Answers: via Family Medications Transportation Arranged Answers: Family/Friends Faxed Final Orders Answers: Yes Agency/Facility Transfer Answers: Yes Report Printed & Faxed to Receiving Agency Family Notified Answers: Yes Discharge Comments Notes: Patient medically cleared for discharge. [facility]iz[facility]ina notified, [facility] and [facility] Date Signed: 07/19/2018 03:51 PM Electronically Signed By:Amelia Ross RN Intervention Information
== END 2018-07-19 17:13 | disposition home health service (06) | DRG 871 ==
LOC: EDUNIT# → F2N 23:27 → F1N 07-17 17:36
PROVIDERS: ADMIT Internal Medicine; ATTEND Internal Medicine
PROC: 02HV33Z Insertion of Infusion Device into Superior Vena Cava, Percutaneous Approach (ICD-10-PCS; principal; 2018-07-12)
PROC: 30243N1 Transfusion of Nonautologous Red Blood Cells into Central Vein, Percutaneous Approach (ICD-10-PCS; 2018-07-14)
PROC: 02HV33Z Insertion of Infusion Device into Superior Vena Cava, Percutaneous Approach (ICD-10-PCS; 2018-07-17)
DX: A41.89 Other specified sepsis (principal); R65.21 Severe sepsis with septic shock; B96.1 Klebsiella pneumoniae [K. pneumoniae] as the cause of diseases classified elsewhere; K50.913 Crohn's disease, unspecified, with fistula; K72.00 Acute and subacute hepatic failure without coma; J98.11 Atelectasis; R18.8 Other ascites; D64.9 Anemia, unspecified; R82.71 Bacteriuria; Z98.1 Arthrodesis status; Z66 Do not resuscitate; Z88.1 Allergy status to other antibiotic agents; Z88.5 Allergy status to narcotic agent; Z72.0 Tobacco use
CPT/HCPCS: 96374; 97116-GP; 97162-GP; 97166-GO; 97530-GO; 97530-GP; 97535-GO; C1751; J0692; J0696; J1170; J1650; J1720; J2405; J3370; J3480; P9016; Q9967

== ENCOUNTER 2018-07-27 11:22 | Inpatient (IN) | payer OTHER ==
--- NOTE | 2018-07-27 11:45 | EDPHY ---
HPI/HX/ROS/PE/MDM Narrative: CHIEF COMPLAINT: Chills, rigors HISTORY OF PRESENT ILLNESS: The patient is a 72 y/o with a history of Crohn's disease status post multiple bowel resections with multiple complications and a reported 13 abdominal surgeries who was admitted here 2 weeks ago with Klebsiella bacteremia causing septic shock. They suspected this was from an intraabdominal source due to increasing ascites seen on CT. She was discharged home a few days ago not on antibiotics as far as she knows. She presents today with chills and rigors onset this morning that feel exactly the same as symptoms preceding her recent episode of septic shock. She has unchanged right- sided abdominal pain and denies significant discharge from her fistula. She inspects the area and changes the bandage regularly. She developed an occasional cough during her prior admission that is still present. She reports diarrhea and insomnia at baseline. Dr. Yanet Winter did call the emergency department to inform me of the patient' s history as well as the fact that she was returning to the emergency department. She reported that on the phone, the patient was having such shaking chills that Dr. Winter could hear her teeth chattering. No fever, chest pain, shortness of breath, palpitations, vomiting, urinary complaints, headache, lightheadedness. REVIEW OF SYSTEMS: Aside from elements discussed in the HPI, a comprehensive 10-point review of systems was reviewed and is negative. PAST MEDICAL HISTORY: Crohn's disease, bowel resections ("13 surgeries") with multiple complications including enterocutaneous fistula, admission for septic shock 07/11/18, chronic pain, degenerative disc disease, depression, breast augmentation, cervical diskectomy, colectomy, umbilical hernia repair. SOCIAL HISTORY: Lives in [place]. Retired. Surgeon: Dr. Yee. Patient's primary care physician, Dr. Yanet Winter, did call the emergency department to inform me of the patient's eminent arrival. Reviewed prior medical records including admission 07/11/18 for abdominal pain and septic shock. VITAL SIGNS: Reviewed by me. Afebrile, normal heart rate, normal blood pressure. GENERAL: Well-developed, well-nourished, resting comfortably in no respiratory distress. HEENT: Atraumatic. Eyes: No icterus, no injection. Mouth: moist mucous membranes. No erythema or lesions. Neck: supple with no adenopathy. LUNGS: Clear to auscultation bilaterally, no wheezes, rhonchi or rales. CARDIAC: Regular rate and rhythm, no rubs, murmurs or gallops. ABDOMEN: Soft, right-sided tenderness, nondistended. Enterocutaneous fistula is present in the left lower quadrant. Small amount of drainage is visible. There is a small amount of drainage on the patient's dressing as well. Area is mildly tender especially to the midline aspect of the fistula. No significant tenderness, rebound, or guarding. Patient reports the amount of discharge she is seeing on the dressings is somewhat less than usual. BACK: No CVA tenderness. EXTREMITIES: No trauma. No edema. Range of motion is normal throughout. NEURO: Alert and oriented, grossly nonfocal. SKIN: Warm and dry, no rash. PSYCHIATRIC: Normal mentation, no agitation. Portions of this note were transcribed by a medical field representative. I personally performed a history, physical exam, medical decision making, and confirmed accuracy of information the transcribed note. ED Course: This is a 72 y/o female with a complicated medical history including Crohn's disease with multiple abdominal surgeries and complications who returns 4 days after discharge for septic shock with a few-hour history of chills and rigors. It does not sound like she was discharged on antibiotics. Concern for recurrent infection. Labs unremarkable. UA pending. Chest x-ray: No infiltrate. Patient's urinalysis does demonstrate significant positive leukocyte esterase, white cells and bacteria but also has trace epithelial cells, mucus, and crystals. At this point we will culture the urine. Blood cultures are pending at this time. Antibiotics were deferred till evaluated by hospitalist service as well as by ID. Course discussed briefly with Dr. Joselito cook who was in the operating room. She will follow the patient in the hospital. At this point no repeat abdominal imaging was ordered. Given the patient's significant history of septicemia with Klebsiella infection , her ongoing drainage from a enterocutaneous fistula, and her history of shaking chills at home, patient will be admitted to the hospital for evaluation by Dr. Clifton cook as well as close observation for fever, low blood pressure, and monitoring of the patient's blood cultures. Spoke with hospitalist service. Dr. Peres accepts admission. Sepsis Evaluation Note: The patient presents to the ED with potential infection identified as septicemia. The patient did have concerning history of chills but no fever. She has no other indications of sepsis, normal heart rate, normal respiratory rate, and normal WBC. There is no evidence of severe sepsis, specifically patient had a normal lactic acid, normal INR, platelets which were not decreased , normal bilirubin, normal creatinine, and remained with a systolic blood pressure greater than 90 throughout her emergency department course. Patient did received ceftriaxone and Flagyl in the emergency department after evaluated by the hospitalist service. MDM: Differential diagnoses for the patient's symptom complex was considered including but not limited to septicemia, intra-abdominal abscess, urinary tract infection, hypothermia. - Data Points Imaging Results: Imaging Impressions Chest X-Ray 07/27/18 12:09 Impression: 1. Mild bronchitis/airways disease. 2. No definite focal pneumonia. Imaging: I viewed and interpreted images myself Laboratory Results: Laboratory Results 07/27/18 11:35 07/27/18 11:35 07/27/18 07/27/18 07/27/18 12:30 12:25 12:19 WBC RBC Hgb Hct MCV MCH MCHC RDW Plt Count MPV Neut % (Auto) Lymph % (Auto) Placer % (Auto) Eos % (Auto) Baso % (Auto) Nucleat RBC Rel Count Absolute Neuts (auto) Absolute Lymphs (auto) Absolute Monos (auto) Absolute Eos (auto) Absolute Basos (auto) Absolute Nucleated RBC Immature Gran % Immature Gran # ESR PT 13.9 SEC SEC (12.0-15.0) INR 1.05 (0.83-1.16) APTT 33.0 SEC SEC (23.0-38.0) VBG Lactic Acid Cancelled Sodium Potassium Chloride Carbon Dioxide Anion Gap BUN Creatinine Estimated GFR Glucose Calcium Total Bilirubin Conjugated Bilirubin Unconjugated Bilirubin AST ALT Alkaline Phosphatase Total Protein Albumin Urine Color COSMO Urine Appearance HAZY Urine pH 5.0 (5.0-7.5) Ur Specific [place] 1.023 (1.002-1.030) Urine Protein 1+ H (NEGATIVE) Urine Ketones NEGATIVE (NEGATIVE) Urine Blood NEGATIVE (NEGATIVE) Urine Nitrate NEGATIVE (NEGATIVE) Urine Bilirubin NEGATIVE (NEGATIVE) Urine Urobilinogen NEGATIVE EU EU (0.2-1.0) Ur Leukocyte Esterase 1+ H (NEGATIVE) Urine RBC 5-10 /hpf H /hpf (0-3) Urine WBC 25-50 /hpf H /hpf (0-3) Ur Epithelial Cells TRACE /lpf /lpf (NONE-1+) Calcium Oxalate Crystal PRESENT /hpf /hpf (NONE-1+) Urine Bacteria TRACE /hpf H /hpf (NONE SEEN) Hyaline Casts 15-25 /lpf H /lpf (0-1) Urine Mucus 4+ /lpf H /lpf (NONE-1+) Urine Glucose NEGATIVE (NEGATIVE) 07/27/18 07/27/18 07/27/18 11:35 11:35 11:35 WBC RBC Hgb Hct 36.5 % L % (38.0-47.0) MCV MCH MCHC RDW Plt Count MPV Neut % (Auto) Lymph % (Auto) Placer % (Auto) Eos % (Auto) Baso % (Auto) Nucleat RBC Rel Count Absolute Neuts (auto) Absolute Lymphs (auto) Absolute Monos (auto) Absolute Eos (auto) Absolute Basos (auto) Absolute Nucleated RBC Immature Gran % Immature Gran # ESR Pending PT INR APTT VBG Lactic Acid Sodium 139 mEq/L mEq/L (135-145) Potassium 4.1 mEq/L mEq/L (3.5-5.2) Chloride 110 mEq/L mEq/L (97-110) Carbon Dioxide 20 mEq/l L mEq/l (22-31) Anion Gap 9 mEq/L mEq/L (6-14) BUN 23 mg/dL mg/dL (7-23) Creatinine 0.7 mg/dL mg/dL (0.6-1.0) Estimated GFR > 60 Glucose 87 mg/dL mg/dL (70-100) Calcium 9.7 mg/dL mg/dL (8.5-10.4) Total Bilirubin 0.7 mg/dL mg/dL (0.1-1.4) Conjugated Bilirubin 0.4 mg/dL mg/dL (0.0-0.5) Unconjugated Bilirubin 0.3 mg/dL mg/dL (0.0-1.1) AST 32 IU/L IU/L (14-46) ALT 49 IU/L IU/L (9-52) Alkaline Phosphatase 187 IU/L H IU/L (38-126) Total Protein 7.5 g/dL g/dL (6.3-8.2) Albumin 4.1 g/dL g/dL (3.5-5.0) Urine Color Urine Appearance Urine pH Ur Specific [place] Urine Protein Urine Ketones Urine Blood Urine Nitrate Urine Bilirubin Urine Urobilinogen Ur Leukocyte Esterase Urine RBC Urine WBC Ur Epithelial Cells Calcium Oxalate Crystal Urine Bacteria Hyaline Casts Urine Mucus Urine Glucose 07/27/18 07/27/18 07/27/18 11:35 11:35 11:33 WBC 6.02 10^3/uL 10^3/uL (3.80-9.50) RBC 4.32 10^6/uL 10^6/uL (4.18-5.33) Hgb 11.3 g/dL L g/dL (12.6-16.3) Hct 35.5 % L % (38.0-47.0) MCV 82.2 fL fL (81.5-99.8) MCH 26.2 pg L pg (27.9-34.1) MCHC 31.8 g/dL L g/dL (32.4-36.7) RDW 20.5 % H % (11.5-15.2) Plt Count 865 10^3/uL H 10^3/uL (150-400) MPV 9.9 fL fL (8.7-11.7) Neut % (Auto) 56.8 % % (39.3-74.2) Lymph % (Auto) 28.6 % % (15.0-45.0) Placer % (Auto) 10.1 % % (4.5-13.0) Eos % (Auto) 2.5 % % (0.6-7.6) Baso % (Auto) 1.7 % % (0.3-1.7) Nucleat RBC Rel Count 0.0 % % (0.0-0.2) Absolute Neuts (auto) 3.42 10^3/uL 10^3/uL (1.70-6.50) Absolute Lymphs (auto) 1.72 10^3/uL 10^3/uL (1.00-3.00) Absolute Monos (auto) 0.61 10^3/uL 10^3/uL (0.30-0.80) Absolute Eos (auto) 0.15 10^3/uL 10^3/uL (0.03-0.40) Absolute Basos (auto) 0.10 10^3/uL 10^3/uL (0.02-0.10) Absolute Nucleated RBC 0.00 10^3/uL 10^3/uL (0-0.01) Immature Gran % 0.3 % % (0.0-1.1) Immature Gran # 0.02 10^3/uL 10^3/uL (0.00-0.10) ESR PT INR APTT VBG Lactic Acid 1.1 mmol/L mmol/L (0.7-2.1) Sodium Potassium Chloride Carbon Dioxide Anion Gap BUN Creatinine Estimated GFR Glucose Calcium Total Bilirubin 0.7 mg/dL mg/dL (0.1-1.4) Conjugated Bilirubin Unconjugated Bilirubin AST ALT Alkaline Phosphatase Total Protein Albumin Urine Color Urine Appearance Urine pH Ur Specific [place] Urine Protein Urine Ketones Urine Blood Urine Nitrate Urine Bilirubin Urine Urobilinogen Ur Leukocyte Esterase Urine RBC Urine WBC Ur Epithelial Cells Calcium Oxalate Crystal Urine Bacteria Hyaline Casts Urine Mucus Urine Glucose Medications Given: Discontinued Medications Sodium Chloride (Ns) 1,400 mls @ 2,800 mls/hr 30 ml/kg infuse over 30 min ( 1400 ml) IV EDNOW ONE PRN Reason: Protocol Stop: 07/27/18 12:37 Last Admin: 07/27/18 12:31 Dose: 1,400 mls General Time Seen by Provider: 07/27/18 11:35 Initial Vital Signs: Initial Vital Signs Temperature (C) 37.2 C 07/27/18 11:41 Heart Rate 89 07/27/18 11:41 Respiratory Rate 16 07/27/18 11:41 Blood Pressure 105/75 07/27/18 11:41 O2 Sat (%) 98 07/27/18 11:41 O2 Delivery Mode Room Air Allergies/Adverse Reactions: Penicillins Allergy (Severe, Verified 07/27/18 11:43) SEIZURES Sulfa (Sulfonamide Antibiotics) Allergy (Severe, Verified 07/27/18 11:43) NAUSEA azathioprine Allergy (Unknown, Verified 07/27/18 11:43) Rash budesonide Allergy (Unknown, Verified 07/27/18 11:43) Rash cefuroxime Allergy (Unknown, Verified 07/27/18 11:43) Other-Enter Comments ertapenem Allergy (Unknown, Verified 07/27/18 11:43) Other-Enter Comments fentanyl Allergy (Unknown, Verified 01/31/19 11:43) MEMORY LOSS,WEIGHT LOSS, MEMORY LOSS gabapentin Allergy (Unknown, Verified 07/27/18 11:43) Rash infliximab Allergy (Unknown, Verified 07/27/18 11:43) Itching mesalamine Allergy (Unknown, Verified 07/27/18 11:43) Rash morphine Allergy (Unknown, Verified 07/27/18 11:43) PT BECOMES "MEAN" tramadol Allergy (Unknown, Verified 07/27/18 11:43) Unknown azathioprine sodium [From Imuran] Allergy (Verified 07/27/18 11:43) Rash azathioprine sodium Allergy (Unknown, Uncoded 07/27/18 11:43) Rash Home Medications: Medication Instructions Recorded Pregabalin [Lyrica 100mg (*)] 100 mg PO ,04/12/18 DULoxetine [Cymbalta 30 MG (*)] 30 mg PO BID 07/11/18 Pregabalin [Lyrica 100mg (*)] 200 mg PO DAILY 07/11/18 Departure - Departure Disposition: [facility] Acute Clinical Impression: Rigors, Chills, Possible urinary tract infection, Abdominal pain, chronic, right lower quadrant Condition: Fair Report Scribed for: Treasure Ritchie Report Scribed by: Angie Tsai Date of Report: 07/27/18 Time of Report: 11:46
[2018-07-27 11:55] LABS: PLATELET COUNT 865 10^3/uL (150-400)
[2018-07-27] MEDS ORDERED: NS 1,400 ML IV ONE (12:08)
[2018-07-27 12:32] LABS: INR 1.05 (0.83-1.16); PROTIME(PATIENT) 13.9 SEC (12.0-15.0)
[2018-07-27] MEDS ORDERED: ONDANSETRON DISINTEGRATING 4 MG TAB PO PRN (15:46)
[2018-07-27] MEDS ORDERED: HYDROCODONE/APAP 5/325 TAB PO PRN (15:46)
[2018-07-27] MEDS ORDERED: ONDANSETRON 4 MG/2 ML VIAL IVP PRN (15:46)
[2018-07-27] MEDS ORDERED: ACETAMINOPHEN 325 MG TAB PO PRN (15:46)
--- NOTE | 2018-07-27 15:56 | PDGENHP ---
History and Physical - Chief Complaint rigors - History of Present Illness 72 yo female with h/o crohn's disease and 13 abdominal surgeries over past few years, with complications including enterocutaneous fistula, presents to ED with rigors. She was admitted earlier this month after presenting in septic shock. She was found to have Klebsiella bacteremia, thought likely due to an intra-abdominal source, with a poly-microbial urine culture. She completed a course of IV Ceftriaxone on 07/21/2018. She has felt well since then, living at home with her son. Today, she developed shaking chills and notes this felt similar to her previous episode of septic shock. She denies other preceding symptoms such as abdominal pain, N/V, dysuria, frequency, urgency or diarrhea. She denies abnormal drainage from her fistula. She does not feel her abdominal distention is any worse than her baseline. No fevers, just the rigors. No CP, SOB or upper respiratory symptoms. No headaches or neck pain. In the ED, her platelet count is quite high, but wbc's are normal and she is afebrile with normal BP and HR. She received a 1.5 L NS fluid bolus. There was concern that her UA may be suggestive of a UTI. She is admitted to the hospital for further management. History Information - Allergies/Home Medication List Allergies/Adverse Reactions: Penicillins Allergy (Severe, Verified 07/27/18 11:43) SEIZURES Sulfa (Sulfonamide Antibiotics) Allergy (Severe, Verified 07/27/18 11:43) NAUSEA azathioprine Allergy (Unknown, Verified 07/27/18 11:43) Rash budesonide Allergy (Unknown, Verified 07/27/18 11:43) Rash cefuroxime Allergy (Unknown, Verified 07/27/18 11:43) Other-Enter Comments ertapenem Allergy (Unknown, Verified 07/27/18 11:43) Other-Enter Comments fentanyl Allergy (Unknown, Verified 07/27/18 11:43) MEMORY LOSS,WEIGHT LOSS, MEMORY LOSS gabapentin Allergy (Unknown, Verified 07/27/18 11:43) Rash infliximab Allergy (Unknown, Verified 07/27/18 11:43) Itching mesalamine Allergy (Unknown, Verified 07/27/18 11:43) Rash morphine Allergy (Unknown, Verified 07/27/18 11:43) PT BECOMES "MEAN" tramadol Allergy (Unknown, Verified 07/27/18 11:43) Unknown azathioprine sodium [From Imuran] Allergy (Verified 07/27/18 11:43) Rash azathioprine sodium Allergy (Unknown, Uncoded 07/27/18 11:43) Rash Home Medications: Pregabalin [Lyrica 100mg (*)] 100 mg PO ,04/12/18 [Last Taken 07/26/18 21: 00] DULoxetine [Cymbalta 30 MG (*)] 30 mg PO BID 07/11/18 [Last Taken 07/27/18] Pregabalin [Lyrica 100mg (*)] 200 mg PO DAILY 07/11/18 [Last Taken 07/27/18] I have personally reviewed and updated: family history, medical history, social history, surgical history - Past Medical History Crohn's Disease Additional medical history: Crohn's disease with multiple abdominal surgeries. Klebsiella bacteremia 06/2018. Degenerative disc disease. Depression - Surgical History Additional surgical history: Colectemy s/p ostomy and takedown. 13 abdominal surgeries for crohn's disease with enterocutaneous fistula. Discectomy. umbilical hernia repair - Family History Positive for: cancer, father with history of CAD younger than 55, myocardial infarction - Social History Smoking Status: Current some day smoker Alcohol Use: None Drug Use: None Additional social history: Lives at home, son is currently staying with her Review of Systems Review of Systems: ROS: 10pt was reviewed & negative except for what was stated in HPI & below Physical Exam Physical Exam: Temp Pulse Resp BP Pulse Ox 37.5 C 87 18 106/72 100 07/27/18 14:04 07/27/18 14:04 07/27/18 14:04 07/27/18 14:04 07/27/18 14:04 Constitutional: no apparent distress Eyes: PERRL Ears, Nose, Mouth, Throat: moist mucous membranes Cardiovascular: regular rate and rhythym Respiratory: no respiratory distress, clear to auscultation Gastrointestinal: other (soft, mild distention, non-tender, fistula has minimal drainage (normal per pt)) Skin: warm Musculoskeletal: full muscle strength Neurologic: AAOx3 Psychiatric: interacting appropriately Lab Data & Imaging Review 07/27/18 11:35 07/27/18 11:35 WBC 6.02 10^3/uL (3.80-9.50) 07/27/18 11:35 RBC 4.32 10^6/uL (4.18-5.33) 07/27/18 11:35 Hgb 11.3 g/dL (12.6-16.3) L 07/27/18 11:35 Hct 35.5 % (38.0-47.0) L 07/27/18 11:35 MCV 82.2 fL (81.5-99.8) 07/27/18 11:35 MCH 26.2 pg (27.9-34.1) L 07/27/18 11:35 MCHC 31.8 g/dL (32.4-36.7) L 07/27/18 11:35 RDW 20.5 % (11.5-15.2) H 07/27/18 11:35 Plt Count 865 10^3/uL (150-400) H 07/27/18 11:35 MPV 9.9 fL (8.7-11.7) 07/27/18 11:35 Neut % (Auto) 56.8 % (39.3-74.2) 07/27/18 11:35 Lymph % (Auto) 28.6 % (15.0-45.0) 07/27/18 11:35 [place] % (Auto) 10.1 % (4.5-13.0) 07/27/18 11:35 Eos % (Auto) 2.5 % (0.6-7.6) 07/27/18 11:35 Baso % (Auto) 1.7 % (0.3-1.7) 07/27/18 11:35 Nucleat RBC Rel Count 0.0 % (0.0-0.2) 07/27/18 11:35 Absolute Neuts (auto) 3.42 10^3/uL (1.70-6.50) 07/27/18 11:35 Absolute Lymphs (auto) 1.72 10^3/uL (1.00-3.00) 07/27/18 11:35 Absolute Monos (auto) 0.61 10^3/uL (0.30-0.80) 07/27/18 11:35 Absolute Eos (auto) 0.15 10^3/uL (0.03-0.40) 07/27/18 11:35 Absolute Basos (auto) 0.10 10^3/uL (0.02-0.10) 07/27/18 11:35 Absolute Nucleated RBC 0.00 10^3/uL (0-0.01) 07/27/18 11:35 Immature Gran % 0.3 % (0.0-1.1) 07/27/18 11:35 Immature Gran # 0.02 10^3/uL (0.00-0.10) 07/27/18 11:35 PT 13.9 SEC (12.0-15.0) 07/27/18 12:25 INR 1.05 (0.83-1.16) 07/27/18 12:25 APTT 33.0 SEC (23.0-38.0) 07/27/18 12:25 VBG Lactic Acid 1.1 mmol/L (0.7-2.1) 07/27/18 11:35 Sodium 139 mEq/L (135-145) 07/27/18 11:35 Potassium 4.1 mEq/L (3.5-5.2) 07/27/18 11:35 Chloride 110 mEq/L (97-110) 07/27/18 11:35 Carbon Dioxide 20 mEq/l (22-31) L 07/27/18 11:35 Anion Gap 9 mEq/L (6-14) 07/27/18 11:35 BUN 23 mg/dL (7-23) 07/27/18 11:35 Creatinine 0.7 mg/dL (0.6-1.0) 07/27/18 11:35 Estimated GFR > 60 07/27/18 11:35 Glucose 87 mg/dL (70-100) 07/27/18 11:35 Calcium 9.7 mg/dL (8.5-10.4) 07/27/18 11:35 Total Bilirubin 0.7 mg/dL (0.1-1.4) 07/27/18 11:33 Urine Color COSMO 07/27/18 12:30 Urine Appearance HAZY 07/27/18 12:30 Urine pH 5.0 (5.0-7.5) 07/27/18 12:30 Ur Specific [place] 1.023 (1.002-1.030) 07/27/18 12:30 Urine Protein 1+ (NEGATIVE) H 07/27/18 12:30 Urine Ketones NEGATIVE (NEGATIVE) 07/27/18 12:30 Urine Blood NEGATIVE (NEGATIVE) 07/27/18 12:30 Urine Nitrate NEGATIVE (NEGATIVE) 07/27/18 12:30 Urine Bilirubin NEGATIVE (NEGATIVE) 07/27/18 12:30 Urine Urobilinogen NEGATIVE EU (0.2-1.0) 07/27/18 12:30 Ur Leukocyte Esterase 1+ (NEGATIVE) H 07/27/18 12:30 Urine RBC 5-10 /hpf (0-3) H 07/27/18 12:30 Urine WBC 25-50 /hpf (0-3) H 07/27/18 12:30 Ur Epithelial Cells TRACE /lpf (NONE-1+) 07/27/18 12:30 Calcium Oxalate Crystal PRESENT /hpf (NONE-1+) 07/27/18 12:30 Urine Bacteria TRACE /hpf (NONE SEEN) H 07/27/18 12:30 Hyaline Casts 15-25 /lpf (0-1) H 07/27/18 12:30 Urine Mucus 4+ /lpf (NONE-1+) H 07/27/18 12:30 Urine Glucose NEGATIVE (NEGATIVE) 07/27/18 12:30 Visualized and Interpreted Chest x-ray results: Yes Chest X-Ray results: no infiltrate Assessment & Plan Assessment: Rigors - concerning for recurrent bacteremia given similar symptoms prior to last episode of septic shock earlier this month. She completed treatment for Klebsiella bacteremia with IV Ceftriaxone. Today, she is afebrile, has normal wbc's and normal lactate, but plts >800 which could be an APR. She does not meet sepsis criteria. UA shows pyuria, but no urinary symptoms. Her abdominal exam is non-tender. I reviewed her CT and U/S images from mid-June and there was a complex fluid collection in the RUQ, which resolved on f/u imaging. -given severity and rapidity of prior episode of septic shock, will cover with Ceftriaxone and Flagyl for possible intra-abdominal or urinary source of infxn -check PCT, CRP and ESR -trend wbc's and plts -follow Cx data, BCx's and UCx pending -check LFT's, will obtain u/s if elevated. With benign exam, defer CT for now -ID consult in am given complex hx and recent bacteremia -surgeon, Dr. Yee, aware of admission Crohn's disease with h/o 13 abdominal surgeries and enterocutaneous fistula - at risk for intra-abdominal infection, no evidence of active flare -atbx as above Thrombocytosis - suspect elevated plts are APR, concerning for recurrent infectious process -trend Neuropathy - Cont Lyrica Depression - Cont Cymbalta Dispo - admit to inpt, anticipate >48 hrs hospitalization for further evaluation of rigors and concern for recurrent bacteremia
[2018-07-27] MEDS ORDERED: cefTRIAXone 1 GM/DEXTROSE 1 GM/50 ML BAG IV ONE (17:49)
[2018-07-27] MEDS: PREGABALIN 100 MG CAP PO SCH (20:02)
[2018-07-27] MEDS: DULoxetine 30 MG CAP PO SCH (20:02)
--- NOTE | 2018-07-27 21:00 | SOAPPROG ---
SOAP Progress Note Assessment/Plan: Assessment: 72 year old well known to me. Recently discharged recovering from sepsis. Had rigors today. Re-admitted Abdomen softer than previous discharge. Very little drainage. Clinically looks similar to her discharge. Don't think abdomen needs imaging Will follow Plan: 07/27/18 20:58 Objective: Vital Signs Temp Pulse Resp BP Pulse Ox 37.2 C 79 13 101/60 95 07/27/18 19:41 07/27/18 19:41 07/27/18 19:41 07/27/18 19:41 07/27/18 19:41 07/26/18 07/27/18 07/28/18 05:59 05:59 05:59 Intake Total 1400 Balance 1400 PT 13.9 SEC (12.0-15.0) 07/27/18 12:25 INR 1.05 (0.83-1.16) 07/27/18 12:25 ICD10 Worksheet Patient Problems: Problems Problem Status Onset Abdominal pain, chronic, right lower quadrant Acute Chills Acute Possible urinary tract infection Acute Rigors Acute Abdominal pain Acute Abdominal pain Acute Acute Crohn's disease Acute Altered mental status Acute Bronchitis Acute Constipation Acute Crohns disease Acute Crohns disease of small intestine Acute Fever Acute Intra-abdominal abscess Acute Malnutrition Acute Periumbilical hernia Acute Postoperative infection Acute Septic shock Acute Severe sepsis Acute Vomiting Acute Wound infection after surgery Acute
[2018-07-28 05:38] LABS: PLATELET COUNT 724 10^3/uL (150-400)
[2018-07-28] MEDS: DULoxetine 30 MG CAP PO SCH ×2 (07:47→20:57)
[2018-07-28] MEDS: PREGABALIN 100 MG CAP PO SCH ×3 (07:47→20:57)
[2018-07-28] MEDS: ENOXAPARIN 40 MG/0.4 ML SYR SC SCH (07:50)
--- NOTE | 2018-07-28 09:05 | SOAPPROG ---
SOAP Progress Note Assessment/Plan: Assessment/Plan: 72yo F well known to our service. Admitted with rigors UTI ID seeing Abd soft and nontender - no abd CT at this time Appreciate hospitalists Will follow peripherally Objective: Vital Signs Temp Pulse Resp BP Pulse Ox 37.1 C 73 16 123/72 H 98 07/28/18 07:57 07/28/18 07:57 07/28/18 07:57 07/28/18 07:57 07/28/18 07:57 Laboratory Results 07/28/18 04:31 07/28/18 04:31 07/27/18 07/28/18 07/29/18 05:59 05:59 05:59 Intake Total 1750 Balance 1750 PT 13.9 SEC (12.0-15.0) 07/27/18 12:25 INR 1.05 (0.83-1.16) 07/27/18 12:25 ICD10 Worksheet Patient Problems: Problems Problem Status Onset Abdominal pain, chronic, right lower quadrant Acute Chills Acute Possible urinary tract infection Acute Rigors Acute Abdominal pain Acute Abdominal pain Acute Acute Crohn's disease Acute Altered mental status Acute Bronchitis Acute Constipation Acute Crohns disease Acute Crohns disease of small intestine Acute Fever Acute Intra-abdominal abscess Acute Malnutrition Acute Periumbilical hernia Acute Postoperative infection Acute Septic shock Acute Severe sepsis Acute Vomiting Acute Wound infection after surgery Acute
--- NOTE | 2018-07-28 11:37 | PDMN ---
Medical Necessity Medical necessity: Pt meets inpt criteria per MD order and Systemic or Infectious condition GRG. 72 y/o w/hx Crohns disease and multiple abd surgeries/ complications, presented to ED w/rigors, earlier admission in Jun 2018 w/septic shock/Klebsiella bacteremia, also +UA suggestive of UTI, platelets elevated at 865. IV Ceftriaxone and IV Flagyl, IVF, surg consult, ID consult pending, urine and bl cultures pending. Given pt's complex hx and recent bacteremia, anticipate >2MN for further eval/management of rigors and concern for recurrent bacteremia.
--- NOTE | 2018-07-28 14:07 | HOSPPROG ---
Hospitalist Progress Note Assessment/Plan: Rigors - concerning for recurrent bacteremia given similar symptoms prior to last episode of septic shock earlier this month. She completed treatment for Klebsiella bacteremia with IV Ceftriaxone on 07/21. She remains afebrile, witn normal wbc's and normal lactate. She does not meet sepsis criteria. Plts trending down, ESR elevated. UCx not c/w UTI. Her abdominal exam remains relatively benign. I reviewed her CT and U/S images from mid-June and there was a complex fluid collection in the RUQ, which resolved on f/u imaging. LFT' s normal here. PCT slightly elevated, at risk for localized bacterial infection. -given severity and rapidity of prior episode of septic shock, will cover with Ceftriaxone and Flagyl for possible intra-abdominal infection -follow Cx data, BCx's pending -repeat PCT in am -ID consulted given complex hx and recent bacteremia -surgeon, Dr. Yee, aware of admission Crohn's disease with h/o 13 abdominal surgeries and enterocutaneous fistula - at risk for intra-abdominal infection, no evidence of active flare -atbx as above, likely dc within next 1-2 days if cultures remains neg Thrombocytosis - suspect elevated plts are APR, concerning for recurrent infectious process -trending down, cont to follow Neuropathy - Cont Lyrica Depression - Cont Cymbalta Dispo - Cont inpt Subjective: Pt feels better. No fevers. No more rigors. No abdominal pain, actually much less distended today. No drainage from fistula. No N/V. Tolerating po. She is tired. Objective: Vital Signs Temp Pulse Resp BP Pulse Ox 37.2 C 78 16 109/63 95 07/28/18 13:00 07/28/18 13:00 07/28/18 13:00 07/28/18 13:00 07/28/18 13:00 Laboratory Results 07/28/18 04:31 07/28/18 04:31 07/27/18 07/28/18 07/29/18 05:59 05:59 05:59 Intake Total 1750 Balance 1750 PT 13.9 SEC (12.0-15.0) 07/27/18 12:25 INR 1.05 (0.83-1.16) 07/27/18 12:25 - Physical Exam Constitutional: no apparent distress Eyes: PERRL Ears, Nose, Mouth, Throat: moist mucous membranes Cardiovascular: regular rate and rhythym Respiratory: no respiratory distress, clear to auscultation Gastrointestinal: other (soft, minimal distention (improved!), non-tender, +BS) Skin: warm Musculoskeletal: full muscle strength Neurologic: AAOx3 Psychiatric: interacting appropriately ICD10 Worksheet Patient Problems: Problems Problem Status Onset Abdominal pain, chronic, right lower quadrant Acute Chills Acute Possible urinary tract infection Acute Rigors Acute Abdominal pain Acute Abdominal pain Acute Acute Crohn's disease Acute Altered mental status Acute Bronchitis Acute Constipation Acute Crohns disease Acute Crohns disease of small intestine Acute Fever Acute Intra-abdominal abscess Acute Malnutrition Acute Periumbilical hernia Acute Postoperative infection Acute Septic shock Acute Severe sepsis Acute Vomiting Acute Wound infection after surgery Acute
--- NOTE | 2018-07-28 14:21 | ASMTCMCOM ---
CM Note CM Note Notes: Patient admitted for Rigors/UTI - ID to consult. Patient recently discharged from [facility] on 07/19. She lives at home and is a part of the [facility] program. Spoke with Ashley at [facility] #[phone] - updated on patient's current status. Upon last d/c patient went home with [facility] and [facility] for TPN infusions. Spoke with [facility] - alerted them of patient's admission, will likely need to resume HC services on this discharge. [facility] wondering about a possible SNF discharge (of note, on last admission, patient refused to go to SNF, does not like the contracted [facility] SNFs). CM met with patient today to discuss d/c plan. Patient states she has everything with [facility] set to how she likes it. She attends therapy at [facility] on [address]. [facility] RN has been following. Patient's son has recently moved in with her from [place] - she is optimistic about the extra support in the home. Patient continues to decline SNF and states, "I am NOT going to one of those places." This will be relayed back to [facility]. Plan: Likely return home with [facility] RN and [facility]. CM will follow for further needs. Date Signed: 07/28/2018 02:20 PM Electronically Signed By:Steffi White RN
--- NOTE | 2018-07-28 15:37 | PCMIDPN ---
Assessment/Plan: Assessment: Patient with known Crohn's disease and recent admission for enterocutaneous fistula and sepsis due to Klebsiella pneumoniae who has been out of the hospital in off treatment for approximately 1 week readmitted for fevers and rigors. Patient was started empirically on ceftriaxone and metronidazole. She has not had a measured fever during this repeat presentation and she feels clinically better. At this point I feel that imaging would be unlikely to reveal much considering she just had a CT 2 weeks ago and an abdominal ultrasound last week which was reassuring. If she remains clinically stable would change her to oral antibiotics to complete a 7 day course and discharge home. Would use 48 hr from admission as a reasonable time point. Plan: 1. Continue IV ceftriaxone and Flagyl at present. 2. Monitor clinical status over the next 24 hr. If stable and lab results remain stable will plan on discharging on oral antibiotic. Subjective: Patient is resting in her hospital bed. She has no new or increased complaint. She states that she feels tired but otherwise okay. Objective: Ceftriaxone # 1 Flagyl # 1 Vital Signs Temp Pulse Resp BP Pulse Ox 37.2 C 78 16 109/63 95 07/28/18 13:00 07/28/18 13:00 07/28/18 13:00 07/28/18 13:00 07/28/18 13:00 Laboratory Results 07/28/18 04:31 07/28/18 04:31 07/27/18 07/28/18 07/29/18 05:59 05:59 05:59 Intake Total 1750 Balance 1750 ESR 91 MM/HR (0-30) H 07/27/18 11:35 C-Reactive Protein 6.6 mg/L (<10.0) 07/27/18 11:35 - Physical Exam General Appearance: WD/WN, alert, no apparent distress, non-toxic Cardiac/Chest: regular rate, rhythm, No tachycardia Extremities: non-tender, normal inspection Abdomen: non-tender, soft Skin: normal color, warm/dry, No rash Neuro/Psych: alert, normal mood/affect, oriented x 3 ICD10 Worksheet Patient Problems: Problems Problem Status Onset Abdominal pain, chronic, right lower quadrant Acute Chills Acute Possible urinary tract infection Acute Rigors Acute Abdominal pain Acute Abdominal pain Acute Acute Crohn's disease Acute Altered mental status Acute Bronchitis Acute Constipation Acute Crohns disease Acute Crohns disease of small intestine Acute Fever Acute Intra-abdominal abscess Acute Malnutrition Acute Periumbilical hernia Acute Postoperative infection Acute Septic shock Acute Severe sepsis Acute Vomiting Acute Wound infection after surgery Acute
[2018-07-29 08:31] VITALS: BP 122/76
[2018-07-29] MEDS: ENOXAPARIN 40 MG/0.4 ML SYR SC SCH (08:51)
[2018-07-29] MEDS: PREGABALIN 100 MG CAP PO SCH (08:51)
[2018-07-29] MEDS: DULoxetine 30 MG CAP PO SCH (08:51)
--- NOTE | 2018-07-29 12:15 | ASMTLACE ---
DIPESH Length of stay for Answers: 2 days current admission Acuity / Level of Answers: Yes Care: Did the patient have an inpatient admission? Comorbidities - select Answers: Opioid dependence all that apply / Chronic pain Other Notes: Crohn's disease # of Emergency department Answers: 5-8 visits in the last 6 months Social determinants Answers: Mental health diagnosis (anxiety, depression, pers onality disorders, etc.) Score: 17 Date Signed: 07/29/2018 12:15 PM Electronically Signed By:HANNAH Little
--- NOTE | 2018-07-29 12:28 | PCMIDPN ---
Assessment/Plan: Assessment: Patient with known Crohn's disease and recent admission for enterocutaneous fistula and sepsis due to Klebsiella pneumoniae who has been out of the hospital in off treatment for approximately 1 week readmitted for fevers and rigors. Patient was started empirically on ceftriaxone and metronidazole. She is remained afebrile since admission and clinically feels well. At this point I think she can go home on oral Levaquin 750 mg daily. Total treatment course of 7 days. Plan: 1. Change therapy to oral Levaquin 750 mg daily. 2. Discharge home. Follow-up in office when needed. 07/29/18 12:26 Subjective: Patient is feeling well this morning. She felt well overnight. No return of fevers or chills. No abdominal pain or complaints of drainage. Objective: Ceftriaxone # 2 Flagyl # 2 Vital Signs Temp Pulse Resp BP Pulse Ox 36.8 C 69 14 122/76 H 98 07/29/18 08:00 07/29/18 08:00 07/29/18 08:00 07/29/18 08:00 07/29/18 08:00 Laboratory Results 07/29/18 05:56 07/29/18 05:56 07/28/18 07/29/18 07/30/18 05:59 05:59 05:59 Intake Total 1750 1340 Balance 1750 1340 ESR 52 MM/HR (0-30) H 07/29/18 05:56 C-Reactive Protein 6.6 mg/L (<10.0) 07/27/18 11:35 - Physical Exam General Appearance: WD/WN, alert, no apparent distress, non-toxic Respiratory: lungs clear, normal breath sounds, No respiratory distress Cardiac/Chest: regular rate, rhythm, No tachycardia Skin: normal color, warm/dry, No rash Neuro/Psych: alert, normal mood/affect, oriented x 3 ICD10 Worksheet Patient Problems: Problems Problem Status Onset Bronchitis Acute Malnutrition Acute Crohns disease Acute Intra-abdominal abscess Acute Abdominal pain, chronic, right lower quadrant Acute Crohns disease of small intestine Acute Abdominal pain Acute Acute Crohn's disease Acute Altered mental status Acute Severe sepsis Acute Abdominal pain Acute Vomiting Acute Constipation Acute Fever Acute Postoperative infection Acute Periumbilical hernia Acute Wound infection after surgery Acute Septic shock Acute Rigors Acute Chills Acute Possible urinary tract infection Acute
--- NOTE | 2018-07-29 13:09 | ASMTDCNOTE ---
Case Management Discharge Discharge Order Complete? Answers: Yes Patient to Obtain Answers: via Family Medications Transportation Arranged Answers: Family/Friends Discharge Comments Notes: Spoke with family re transportation through [facility]. She asked her daughter to pick her up. Also spoke with Rosalva from [facility] - pt was open with them for RN prior to admission. Referral sent via [employer]. Pt okay with Tuesday start of care as she would prefer September RN. Notified [facility] and faxed history/physical and ID note at their request. Date Signed: 07/29/2018 01:08 PM Electronically Signed By:HANNAH Little
--- NOTE | 2018-07-29 15:52 | PDIAF ---
- Diagnosis Diagnosis: crohn's Code Status: Full Code - Medication Management Discharge Medications: electronically signed and located in the Home Medication List. PICC Care - Routine: N/A - Orders Services needed: Home Care, Registered Nurse Home Care Face to Face: I certify that this patient was under my care and that I had the required [id number] encounter meeting the encounter requirements on the discharge day. My findings support the fact that the patient is homebound as defined in Home Care Face to Face Continued: CMS Chapter 7 Medicare Benefits Manual 30.1.1 , The condition of the patient is such that there exists a normal inability to leave home and consequently, leaving home would require a considerable and taxing effort. Isolation Type: None Diet Recommendation: no restrictions on diet Additional Instructions: Follow up with Dr. Yee. Follow up at the [facility] (for hematology services) for follow up on your elevated platelet count in 2 weeks. - Follow Up Care Current Providers and Referrals: Kassy Yee MD [Medical Doctor] - Gonzalez Woodard MD [Medical Doctor] - Patient,NotPresent [Unknown] - As per Instructions
--- NOTE | 2018-07-29 19:02 | GDS ---
[f rep st] DISCHARGE SUMMARY DISCHARGE DIAGNOSES: 1. Rigors. 2. Crohn disease with history of multiple abdominal surgeries and enterocutaneous fistula. 3. Recent hospitalization for septic shock and Klebsiella pneumoniae, completed treatment course of ceftriaxone on July 21. 4. Thrombocytosis, possibly an acute-phase reactant. 5. Neuropathy. 6. Depression. CONSULTANTS: Dr. Jorge Knox, Infectious Disease. HISTORY OF DETAILS: Please see History and Physical dated July 27, 2018. In brief, the patient i s a 72-year-old female with history of Crohn disease and multiple abdominal surgeries as described ab cheryl who was recently admitted to the hospital for septic shock secondary to Klebsiella pneumoniae. O ne week after completing her treatment course of IV ceftriaxone, she developed acute shaking rigors a nd returned to the emergency department as this is how her previous episode of septic shock started. She was admitted to the hospital for further evaluation. HOSPITAL COURSE: Patient was admitted to a med/surg bed. Her rigors were certainly concerning for r ecurrent bacteremia. Blood cultures were drawn, and she was started on empiric ceftriaxone and Flagy l due to concern for an intraabdominal source. Her abdominal exam was relatively benign. She had no drainage from her enterocutaneous fistula. She was evaluated by her surgeon. She had normal liver enzymes, normal white blood cell counts. However, her procalcitonin was elevated at 0.28 with a sed rate of 91 and I also note her platelet count was 865,000. These may be inflammatory markers suggest sally of an early infectious process. Given her benign exam, imaging was not pursued. Her blood cultu res remained negative for greater than 48 hours at the time of discharge. She did grow Enterococcus faecalis in her urine culture though this was a low colony count of just 8000. It was also noted she had polymicrobial urine culture during her previous hospitalization. She remained afebrile for grea ter than 48 hours. Her vital signs remained stable. She had no elevation of her white blood cell co unt. Her sed rate trended down from 90 to 52. Her platelet count also slightly trended down from 86 5 to 800 on the day of discharge. In addition, her procalcitonin trended down from 0.28 to 0.19. Th e patient's condition remained stable. Infectious Disease consult was obtained given her complex his tory. On the day of discharge, Infectious Disease recommended she discharge home with 1 week of oral Levaquin. She should have close followup with her surgeon, and home health services will be re-initi ated. DISPOSITION: Patient is discharged home in stable condition with home health services to continue in rk [facility]. FOLLOWUP: 1. Dr. Maryanne Yee, General Surgery. 2. Dr. Gonzalez Woodard for followup on her elevated platelet count. DISCHARGE MEDICATIONS: Please see [facility] completed outpatient medication list. New medications on discharge include Levaquin 750 mg p.o. daily, #7, no refills; Flagyl 500 mg p.o. t.i.d., #21, no ref ills. /[id number]/MODL
== END 2018-07-29 14:02 | disposition home or self-care (01) | DRG 864 ==
LOC: EDUNIT# → OBSVTOIN 15:50 → F3N 18:15
PROVIDERS: ADMIT Hospitalist; ATTEND Hospitalist
DX: R50.9 Fever, unspecified (principal); D47.3 Essential (hemorrhagic) thrombocythemia; K50.90 Crohn's disease, unspecified, without complications; G62.9 Polyneuropathy, unspecified; F32.9 Major depressive disorder, single episode, unspecified
CPT/HCPCS: 96374; J0696; J1650

== ENCOUNTER 2018-08-02 17:18 | Emergency (ER) | payer OTHER ==
--- NOTE | 2018-08-02 18:03 | EDPHY ---
H & P Time Seen by Provider: 08/02/18 17:42 HPI/ROS: Chief complaint. Fever HPI. 72-year-old female presents emergency department with fever. She saw her PCP today and apparently was diagnosed with UTI. Patient had fever to 100.2 degrees. No cough or shortness of breath. No chest pain. She has had some abdominal distension today but no vomiting or abdominal pain. She has no urinary frequency or does urea. The patient was admitted for about 2 weeks mid June 2018 for Klebsiella bacteremia sepsis. She has a history of Crohn's with ostomy and then reverse ostomy. Multiple abdominal surgeries. ROS 10 systems were reviewed and negative with the exception of the elements mentioned in the history of present illness Past Medical/Surgical History: Crohn's, DD scoliosis, SBO status post bowel resection, breast augmentation, C- spine fusion, ostomy Social History: , daily smoker, no alcohol Smoking Status: Current some day smoker Physical Exam: General Appearance: Alert well-developed female mild distress vital signs significant for temp 37.4 degrees Eyes: Pupils equal and round no pallor or injection. ENT, Mouth: Mucous membranes are moist. Respiratory: There are no retractions, lungs are clear to auscultation. Cardiovascular: Regular rate and rhythm. Gastrointestinal: Abdomen is soft with some distention. Nontender. Normal bowel sounds. Drainage from ostomy reversal site Neurological: Awake and alert, sensory and motor exams grossly normal. Skin: Warm and dry, no rashes. Musculoskeletal: Neck is supple nontender. Extremities symmetrical, full range of motion. Psychiatric: Patient is oriented X 3, there is no agitation. Constitutional: Initial Vital Signs Temperature (C) 37.4 C 08/02/18 17:24 Heart Rate 95 08/02/18 17:24 Respiratory Rate 18 08/02/18 17:24 Blood Pressure 107/63 08/02/18 17:24 O2 Sat (%) 93 08/02/18 17:24 O2 Delivery Mode Room Air Allergies/Adverse Reactions: Penicillins Allergy (Severe, Verified 08/02/18 17:23) SEIZURES Sulfa (Sulfonamide Antibiotics) Allergy (Severe, Verified 08/02/18 17:23) NAUSEA azathioprine Allergy (Unknown, Verified 08/02/18 17:23) Rash budesonide Allergy (Unknown, Verified 08/02/18 17:23) Rash ertapenem Allergy (Unknown, Verified 08/02/18 17:23) Other-Enter Comments fentanyl Allergy (Unknown, Verified 08/02/18 17:23) MEMORY LOSS,WEIGHT LOSS, MEMORY LOSS gabapentin Allergy (Unknown, Verified 08/02/18 17:23) Rash infliximab Allergy (Unknown, Verified 08/02/18 17:23) Itching mesalamine Allergy (Unknown, Verified 08/02/18 17:23) Rash morphine Allergy (Unknown, Verified 08/02/18 17:23) PT BECOMES "MEAN" tramadol Allergy (Unknown, Verified 08/02/18 17:23) Unknown azathioprine sodium [From Imuran] Allergy (Verified 08/02/18 17:23) Rash azathioprine sodium Allergy (Unknown, Uncoded 07/27/18 11:43) Rash Home Medications: Medication Instructions Recorded Pregabalin [Lyrica 100mg (*)] 100 mg PO 18 DULoxetine [Cymbalta 30 MG (*)] 30 mg PO BID 07/11/18 Pregabalin [Lyrica 100mg (*)] 200 mg PO DAILY 07/11/18 levOFLOXACIN [Levaquin] 500 mg PO DAILY #5 tablet 08/02/18 Medical Decision Making - Diagnostics Imaging Results: Imaging Impressions Chest X-Ray 08/02/18 18:05 Impression: Stable airways disease. No pneumonia. Abdomen X-Ray 08/02/18 18:13 Impression: Consistent with diarrhea. Abdomen CT 08/02/18 19:23 Impression: 1. Suspect postoperative scarring in the anterior right lower abdomen-upper pelvis. If occult to exclude a thin crescentic abscess in this area. Please see above. If clinically indicated repeat CT after copious oral contrast might be considered. 2. No evidence for bowel obstruction. 3. Stable dilatation of the pancreatic and common bile ducts. This is potentially the sequela of remote pancreatitis in a patient with pancreas divisum anatomy. 4. Fluid throughout the colon consistent with either diarrhea or recent enema. 5. Coronary artery disease. Results discussed with Dr. Karthik Mchugh at 8:14 PM. General information for patients regarding this examination can be found at [email or web address]. If you have questions or comments about this report, please contact me at (hospital) or [phone] (cell). Upright abdominal x-ray shows multiple air-fluid levels Chest x-ray interpreted by me shows pneumonia CT abdomen pelvis with IV contrast shows no evidence of small-bowel obstruction Procedures: IV normal saline. Sepsis workup ED Course/Re-evaluation: Recheck 7:20 p.m. Patient is stable. She and I discussed imaging and lab results. We discussed treatment plan including recommendation for CT looking for small-bowel obstruction. Levaquin in the emergency department for UTI. Urine is sent for culture and sensitivity Patient and I discussed imaging lab results. We discussed treatment plan including criteria for return importance of follow-up and further evaluation. She expresses understanding and agreement. She feels well to be discharged. Differential Diagnosis: I considered sepsis, UTI, pneumonia. - Data Points Laboratory Results: Laboratory Results 08/02/18 18:20 08/02/18 18:20 08/02/18 08/02/18 08/02/18 18:20 18:20 18:20 WBC 7.72 10^3/uL 10^3/uL (3.80-9.50) RBC 3.65 10^6/uL L 10^6/uL (4.18-5.33) Hgb 9.3 g/dL L g/dL (12.6-16.3) Hct 29.3 % L % (38.0-47.0) MCV 80.3 fL L fL (81.5-99.8) MCH 25.5 pg L pg (27.9-34.1) MCHC 31.7 g/dL L g/dL (32.4-36.7) RDW 20.4 % H % (11.5-15.2) Plt Count 486 10^3/uL H 10^3/uL (150-400) MPV 9.6 fL fL (8.7-11.7) Neut % (Auto) 62.0 % % (39.3-74.2) Lymph % (Auto) 24.0 % % (15.0-45.0) [place] % (Auto) 10.4 % % (4.5-13.0) Eos % (Auto) 2.5 % % (0.6-7.6) Baso % (Auto) 0.8 % % (0.3-1.7) Nucleat RBC Rel Count 0.0 % % (0.0-0.2) Absolute Neuts (auto) 4.80 10^3/uL 10^3/uL (1.70-6.50) Absolute Lymphs (auto) 1.85 10^3/uL 10^3/uL (1.00-3.00) Absolute Monos (auto) 0.80 10^3/uL 10^3/uL (0.30-0.80) Absolute Eos (auto) 0.19 10^3/uL 10^3/uL (0.03-0.40) Absolute Basos (auto) 0.06 10^3/uL 10^3/uL (0.02-0.10) Absolute Nucleated RBC 0.00 10^3/uL 10^3/uL (0-0.01) Immature Gran % 0.3 % % (0.0-1.1) Immature Gran # 0.02 10^3/uL 10^3/uL (0.00-0.10) PT 15.5 SEC H SEC (12.0-15.0) INR 1.21 H (0.83-1.16) APTT 34.7 SEC SEC (23.0-38.0) VBG Lactic Acid 0.9 mmol/L mmol/L (0.7-2.1) Sodium Potassium Chloride Carbon Dioxide Anion Gap BUN Creatinine Estimated GFR Glucose Calcium Total Bilirubin Urine Color Urine Appearance Urine pH Ur Specific [place] Urine Protein Urine Ketones Urine Blood Urine Nitrate Urine Bilirubin Urine Urobilinogen Ur Leukocyte Esterase Urine RBC Urine WBC Ur Epithelial Cells Urine Bacteria Hyaline Casts Urine Mucus Urine Glucose 08/02/18 08/02/18 08/02/18 18:20 17:26 17:26 WBC RBC Hgb Hct MCV MCH MCHC RDW Plt Count MPV Neut % (Auto) Lymph % (Auto) [place] % (Auto) Eos % (Auto) Baso % (Auto) Nucleat RBC Rel Count Absolute Neuts (auto) Absolute Lymphs (auto) Absolute Monos (auto) Absolute Eos (auto) Absolute Basos (auto) Absolute Nucleated RBC Immature Gran % Immature Gran # PT INR APTT VBG Lactic Acid Sodium 136 mEq/L mEq/L (135-145) Potassium 3.1 mEq/L L mEq/L (3.5-5.2) Chloride 108 mEq/L mEq/L (97-110) Carbon Dioxide 18 mEq/l L mEq/l (22-31) Anion Gap 10 mEq/L mEq/L (6-14) BUN 21 mg/dL mg/dL (7-23) Creatinine 0.9 mg/dL mg/dL (0.6-1.0) Estimated GFR > 60 Glucose 77 mg/dL mg/dL (70-100) Calcium 9.0 mg/dL mg/dL (8.5-10.4) Total Bilirubin 0.4 mg/dL mg/dL (0.1-1.4) Urine Color YELLOW Urine Appearance CLEAR Urine pH 6.0 (5.0-7.5) Ur Specific [place] 1.013 (1.002-1.030) Urine Protein NEGATIVE (NEGATIVE) Urine Ketones NEGATIVE (NEGATIVE) Urine Blood NEGATIVE (NEGATIVE) Urine Nitrate NEGATIVE (NEGATIVE) Urine Bilirubin NEGATIVE (NEGATIVE) Urine Urobilinogen NEGATIVE EU EU (0.2-1.0) Ur Leukocyte Esterase 1+ H (NEGATIVE) Urine RBC 3-5 /hpf H /hpf (0-3) Urine WBC 10-15 /hpf H /hpf (0-3) Ur Epithelial Cells TRACE /lpf /lpf (NONE-1+) Urine Bacteria TRACE /hpf H /hpf (NONE SEEN) Hyaline Casts 1-5 /lpf /lpf (0-1) Urine Mucus TRACE /lpf /lpf (NONE-1+) Urine Glucose NEGATIVE (NEGATIVE) Medications Given: Discontinued Medications Sodium Chloride (Ns) 1,000 mls @ 0 mls/hr IV EDNOW ONE; Wide Open PRN Reason: Protocol Stop: 08/02/18 18:05 Last Admin: 08/02/18 18:42 Dose: 1,000 mls Sodium Chloride (Ns) 1,000 mls @ 0 mls/hr IV EDNOW ONE; Wide Open PRN Reason: Protocol Stop: 08/02/18 18:05 Last Admin: 08/02/18 18:42 Dose: 1,000 mls Levofloxacin (Levaquin) 750 mg PO EDNOW ONE PRN Reason: Protocol Stop: 08/02/18 19:24 Last Admin: 08/02/18 19:56 Dose: 750 mg Departure - Departure Disposition: Home, Routine, Self-Care Clinical Impression: Urinary tract infection Qualifiers: Urinary tract infection type: site unspecified Hematuria presence: without hematuria Qualified Code(s): N39.0 - Urinary tract infection, site not specified Condition: Good Instructions: Urinary Tract Infection in Women (ED) Additional Instructions: Drink plenty of fluids and stay hydrated Continue antibiotics. I will write you a prescription for 5 more days Levaquin for the urinary tract infection Return for worsening symptoms Follow-up with Dr. Mccain for continuing treatment of your abdomen and drainage. Recheck in 2 days if not improved Referrals: Yanet Winter MD [Primary Care Provider] - 2-3 days, if not improved Prescriptions: levOFLOXACIN [Levaquin] 500 mg PO DAILY #5 tablet
[2018-08-02] MEDS ORDERED: NS 1,000 ML IV ONE ×2 (18:04)
[2018-08-02 18:45] LABS: PLATELET COUNT 486 10^3/uL (150-400)
[2018-08-02 18:53] LABS: INR 1.21 (0.83-1.16); PROTIME(PATIENT) 15.5 SEC (12.0-15.0)
[2018-08-02] MEDS ORDERED: IOHEXOL 300 mgI/ML (OMNIPAQUE) 150 ML BTL IV ONE (19:32)
[2018-08-02 20:39] VITALS: BP 122/76
== END 2018-08-02 20:38 | disposition home or self-care (01) ==
DX: N39.0 Urinary tract infection, site not specified (principal)
CPT/HCPCS: Q9967

== ENCOUNTER 2018-10-31 17:40 | Inpatient (IN) | payer OTHER ==
--- NOTE | 2018-10-31 18:04 | EDPHY ---
H & P Stated Complaint: patient of dr. foss, thinks ostomy is infected, red swollen and bleeding Time Seen by Provider: 10/31/18 18:04 HPI/ROS: HPI CHIEF COMPLAINT: Worsening lower abdominal pain, worsening high output ostomy HISTORY OF PRESENT ILLNESS: This is a 73-year-old female she has a history of Crohn's disease, presents emergency room with lower abdominal pain, fever, and concerned about her ostomy site. She reports to me over the last 48-72 hours she has had lower abdominal pain. Temperature at home T-max 100 degrees. She complaining worsening ostomy pain as well as right lower quadrant abdominal pain. Of note this patient has had history of septic shock, intra-abdominal abscesses. Also has had history of enterocutaneous fistula. Past Medical History: History of Crohn's disease, intra-abdominal abscess, septic shock, Klebsiella pneumonia Past Surgical History: Multiple abdominal surgeries Social History: Denies drugs alcohol tobacco. Family History: Noncontributory ROS REVIEW OF SYSTEMS: 10 Systems were reviewed and negative with the exception of the elements mentioned in the history of present illness. Exam Constitutional triage nursing summary reviewed, vital signs reviewed, awake/ alert. 38.3 temp. Eyes normal conjunctivae and sclera, EOMI, PERRLA. HENT normal inspection, atraumatic, moist mucus membranes, no epistaxis, neck supple/ no meningismus, no raccoon eyes. Respiratory clear to auscultation bilaterally, normal breath sounds, no respiratory distress, no wheezing. Cardiovascular rate normal, regular rhythm, no murmur, no edema, distal pulses normal. Gastrointestinal mildly tender palpation right lower quadrant and left lower quadrant and around her ostomy site, erythema around the ostomy site appears to be chronic skin changes Genitourinary no CVA tenderness. Musculoskeletal no midline vertebral tenderness, full range of motion, no calf swelling, no tenderness of extremities, no meningismus, good pulses, neurovascularly intact. Skin pink, warm, & dry, no rash, skin atraumatic. Neurologic awake, alert and oriented x 3, AAOx3, moves all 4 extremities equally, motor intact, sensory intact, CN II-XII intact, normal cerebellar, normal vision, normal speech. Psychiatric normal mood/affect. Heme/Lymph/Immune no lymphadenopathy. Differential Diagnosis: Differential diagnosis includes but is not limited to and in no particular order: Bowel obstruction, appendicitis, gallbladder disease, diverticulitis, colitis, enteritis, perforated viscus, gastritis, GERD , esophagitis, urinary tract infection, pyelonephritis, kidney stones Medical Decision Making: Plan for this patient IV establishment with blood draw , blood cultures, lactic acid, basic labs, gentle IV fluids, CT scan abdomen pelvis with IV contrast to help delineate the lower abdominal pain. Re-evaluation: CT scan abdomen pelvis with IV contrast shows possible intra-abdominal abscess. Called to me by Dr. Morgan. Labs reviewed. Plan for admission to the hospitalist service. Additionally 2020: I did consult Dr. Potter. Will plan on a consult in the morning. Admit to medicine, Abdominal pain, abscess. Dr. Kamara Consulted. Agrees for admission patient agrees for admission. Source: Patient - Personal History Current Tetanus/Diphtheria Vaccine: No Current Tetanus Diphtheria and Acellular Pertussis (TDAP): No Tetanus Vaccine Date: < 10 years - Medical/Surgical History Hx Asthma: No Hx Chronic Respiratory Disease: No Hx Diabetes: No Hx Cardiac Disease: No Hx Renal Disease: No Hx Cirrhosis: No Hx Alcoholism: No Hx HIV/AIDS: No Hx Splenectomy or Spleen Trauma: No Other PMH: Crohns, DD scoliosis, SBO. s/p bowel resection, breast augmentation , c-spine fusion, tubal ligation, ostomy, reverse ostomy, "13 abdominal surgeries in 15 months" - Social History Smoking Status: Current some day smoker Constitutional: Initial Vital Signs Temperature (C) 38.3 C 10/31/18 17:43 Heart Rate 90 10/31/18 17:43 Respiratory Rate 14 10/31/18 17:43 Blood Pressure 122/75 H 10/31/18 17:43 O2 Sat (%) 97 10/31/18 17:43 O2 Delivery Mode Room Air O2 (L/minute) 2 Allergies/Adverse Reactions: Penicillins Allergy (Severe, Verified 08/02/18 17:23) SEIZURES Sulfa (Sulfonamide Antibiotics) Allergy (Severe, Verified 08/02/18 17:23) NAUSEA azathioprine Allergy (Unknown, Verified 08/02/18 17:23) Rash budesonide Allergy (Unknown, Verified 08/02/18 17:23) Rash ertapenem Allergy (Unknown, Verified 08/02/18 17:23) Other-Enter Comments fentanyl Allergy (Unknown, Verified 02/06/19 17:23) MEMORY LOSS,WEIGHT LOSS, MEMORY LOSS gabapentin Allergy (Unknown, Verified 08/02/18 17:23) Rash infliximab Allergy (Unknown, Verified 08/02/18 17:23) Itching mesalamine Allergy (Unknown, Verified 08/02/18 17:23) Rash morphine Allergy (Unknown, Verified 08/02/18 17:23) PT BECOMES "MEAN" tramadol Allergy (Unknown, Verified 08/02/18 17:23) Unknown azathioprine sodium [From Imuran] Allergy (Verified 08/02/18 17:23) Rash azathioprine sodium Allergy (Unknown, Uncoded 07/27/18 11:43) Rash Home Medications: Medication Instructions Recorded Cholecalciferol Vit D3 [Vitamin D3 1,000 units PO DAILY 10/31/18 (*)] Cyanocobalamin [Vitamin B12 (*)] 500 mcg PO DAILY 10/31/18 DULoxetine [Cymbalta 30 MG (*)] 30 mg PO BID 10/31/18 Herbals/Supplements -Info Only 1 ea PO DAILY 10/31/18 Potassium Cl [Klor-Con 20 meq (*)] 20 meq PO DAILY 10/31/18 Pregabalin [Lyrica 100mg (*)] 200 mg PO BID 10/31/18 busPIRone [Buspar (*)] 5 mg PO TID 10/31/18 Medical Decision Making - Data Points Laboratory Results: Laboratory Results 10/31/18 18:20 10/31/18 18:20 Medications Given: Discontinued Medications Acetaminophen (Tylenol) 1,000 mg PO EDNOW ONE Stop: 10/31/18 18:11 Last Admin: 10/31/18 18:16 Dose: 1,000 mg Buspirone HCl (Buspar) 5 mg PO TID [facility] Stop: 04/29/19 21:59 Last Admin: 11/01/18 07:50 Dose: 5 mg Cholecalciferol (Vitamin D) 1,000 units PO DAILY [facility] Stop: 04/30/19 08:59 Last Admin: 11/01/18 07:51 Dose: 1,000 units Duloxetine HCl (Cymbalta) 30 mg PO BID [facility] Stop: 04/29/19 20:59 Last Admin: 11/01/18 07:50 Dose: 30 mg Enoxaparin Sodium (Lovenox) 40 mg SC DAILY [facility] Stop: 04/30/19 08:59 Last Admin: 11/01/18 07:51 Dose: 40 mg Hydromorphone HCl (Dilaudid) 1 mg IVP EDNOW ONE Stop: 10/31/18 18:10 Last Admin: 10/31/18 18:16 Dose: 1 mg Sodium Chloride (Ns) 1,000 mls @ 0 mls/hr IV EDNOW ONE; Wide Open PRN Reason: Protocol Stop: 10/31/18 18:10 Last Admin: 10/31/18 18:16 Dose: 1,000 mls Ceftriaxone Sodium/Dextrose (Rocephin 1 Gm (Premix)) 50 mls @ 100 mls/hr IV EDNOW ONE PRN Reason: Protocol Stop: 10/31/18 20:44 Last Admin: 10/31/18 20:23 Dose: 50 mls Metronidazole/Sodium Chloride (Flagyl 500 Mg (Premix)) 100 mls @ 100 mls/hr IV EDNOW ONE PRN Reason: Protocol Stop: 10/31/18 21:14 Last Admin: 10/31/18 20:46 Dose: 100 mls Potassium Chloride/Dextrose/Sod Cl (D5w 1/2 Ns W/ 20 Kcl/L) 1,000 mls @ 125 mls /hr IV CONT [facility] Stop: 04/29/19 20:59 Last Admin: 11/01/18 07:47 Dose: 1,000 mls Metronidazole/Sodium Chloride (Flagyl 500 Mg (Premix)) 100 mls @ 100 mls/hr IV Q8H [facility] PRN Reason: Protocol Stop: 12/01/18 04:59 Last Admin: 11/01/18 12:44 Dose: 100 mls Oxycodone HCl (Oxycodone Ir) 5 - 10 mg PO Q4 PRN PRN Reason: Pain, Severe Able to Take PO Stop: 11/10/18 20:58 Last Admin: 10/31/18 21:53 Dose: 5 mg Potassium Chloride (Klor-Con) 20 meq PO DAILY [facility] Stop: 04/30/19 08:59 Last Admin: 11/01/18 07:51 Dose: 20 meq Pregabalin (Lyrica) 200 mg PO BID [facility] Stop: 04/29/19 20:59 Last Admin: 11/01/18 07:50 Dose: 200 mg Vitamin B Complex (Vitamin B12) 500 mcg PO DAILY [facility] Stop: 04/30/19 08:59 Last Admin: 11/01/18 07:51 Dose: 500 mcg Departure - Departure Disposition: [facility] Inpatient Acute Clinical Impression: Intra-abdominal abscess Acute Crohn's disease Qualifiers: Digestive disease complication type: with fistula Qualified Code(s): K50.913 - Crohn's disease, unspecified, with fistula Abdominal pain Qualifiers: Abdominal location: unspecified location Qualified Code(s): R10.9 - Unspecified abdominal pain Condition: Serious
[2018-10-31] MEDS ORDERED: NS 1,000 ML IV ONE (18:09)
[2018-10-31] MEDS ORDERED: HYDROmorphONE/DILAUDID 2 MG/ML INJ IVP ONE (18:09)
[2018-10-31] MEDS ORDERED: ACETAMINOPHEN 500 MG TAB PO ONE (18:10)
[2018-10-31 18:34] LABS: PLATELET COUNT 441 10^3/uL (150-400)
[2018-10-31 18:43] LABS: INR 1.05 (0.83-1.16); PROTIME(PATIENT) 13.3 SEC (12.0-15.0)
--- NOTE | 2018-10-31 20:49 | PDGENHP ---
History and Physical - Chief Complaint Abdominal pain and fever - History of Present Illness This is a 73-year-old female with Crohn's disease presenting with increased left upper quadrant redness, pain and fever. The pain is described as a 10/10. She has not been able to use her ostomy appliance since it has been leaking. Her appetite is described as poor. Her temperature was 100 degrees F per her reading earlier today. Pain is described as unbearable. She feels very down and depressed at home. Her quality of life is severely diminished due to pain. History Information - Allergies/Home Medication List Allergies/Adverse Reactions: Penicillins Allergy (Severe, Verified 08/02/18 17:23) SEIZURES Sulfa (Sulfonamide Antibiotics) Allergy (Severe, Verified 08/02/18 17:23) NAUSEA azathioprine Allergy (Unknown, Verified 08/02/18 17:23) Rash budesonide Allergy (Unknown, Verified 08/02/18 17:23) Rash ertapenem Allergy (Unknown, Verified 08/02/18 17:23) Other-Enter Comments fentanyl Allergy (Unknown, Verified 08/02/18 17:23) MEMORY LOSS,WEIGHT LOSS, MEMORY LOSS gabapentin Allergy (Unknown, Verified 08/02/18 17:23) Rash infliximab Allergy (Unknown, Verified 08/02/18 17:23) Itching mesalamine Allergy (Unknown, Verified 08/02/18 17:23) Rash morphine Allergy (Unknown, Verified 08/02/18 17:23) PT BECOMES "MEAN" tramadol Allergy (Unknown, Verified 08/02/18 17:23) Unknown azathioprine sodium [From Imuran] Allergy (Verified 08/02/18 17:23) Rash azathioprine sodium Allergy (Unknown, Uncoded 07/27/18 11:43) Rash Home Medications: Cholecalciferol Vit D3 [Vitamin D3 (*)] 1,000 units PO DAILY 10/31/18 [Last Taken 10/31/18] Cyanocobalamin [Vitamin B12 (*)] 500 mcg PO DAILY 10/31/18 [Last Taken 10/31/18] DULoxetine [Cymbalta 30 MG (*)] 30 mg PO BID 10/31/18 [Last Taken 10/31/18] Herbals/Supplements -Info Only 1 ea PO DAILY 10/31/18 [Last Taken 10/30/18] Potassium Cl [Klor-Con 20 meq (*)] 20 meq PO DAILY 10/31/18 [Last Taken 10/31/18 ] Pregabalin [Lyrica 100mg (*)] 200 mg PO BID 10/31/18 [Last Taken 10/31/18] busPIRone [Buspar (*)] 5 mg PO TID 10/31/18 [Last Taken 10/31/18] I have personally reviewed and updated: family history, medical history, social history, surgical history Past Medical History: See HPI List - Past Medical History Crohn's Disease Additional medical history: Crohn's disease with multiple abdominal surgeries. Klebsiella bacteremia 06/2018. Degenerative disc disease. Depression - Surgical History Additional surgical history: Colectemy s/p ostomy and takedown. 13 abdominal surgeries for crohn's disease with enterocutaneous fistula. Discectomy. umbilical hernia repair - Family History Positive for: cancer, father with history of CAD younger than 55, myocardial infarction - Social History Smoking Status: Current some day smoker Additional social history: Lives at home, son is currently staying with her Review of Systems Review of Systems: ROS: 10pt was reviewed & negative except for what was stated in HPI & below Physical Exam Physical Exam: Temp Pulse Resp BP Pulse Ox 38.3 C 83 16 101/75 95 10/31/18 17:43 10/31/18 20:24 10/31/18 20:24 10/31/18 20:24 10/31/18 20:24 Constitutional: no apparent distress, chronically ill appearing, uncomfortable Eyes: PERRL, anicteric sclera, EOMI Ears, Nose, Mouth, Throat: moist mucous membranes, hearing normal, ears appear normal, no oral mucosal ulcers Cardiovascular: regular rate and rhythym, no murmur, rub, or gallop, No edema Respiratory: no respiratory distress, no rales or rhonchi, clear to auscultation , No respiratory distress, No rhonchi Gastrointestinal: normoactive bowel sounds, tenderness (Diffuse), guarding, other (Left upper quadrant ostomy site is red with some mucopurulent discharge no obvious abscess), No rebound Genitourinary: no bladder fullness, no bladder tenderness Skin: warm, normal color, no fluctuance, no induration, other (see abdominal exam), No mottled Musculoskeletal: full muscle strength, no muscle tenderness, normal joint ROM, no joint effusions Neurologic: AAOx3, CN II-XII Intact, No facial droop Psychiatric: interacting appropriately, not anxious, not encephalopathic, thought process linear, depressed Lymph, Heme, Immunologic: no cervical LAD, no supraclavicular LAD Lab Data & Imaging Review 10/31/18 18:20 10/31/18 18:20 WBC 8.50 10^3/uL (3.80-9.50) 10/31/18 18:20 RBC 4.60 10^6/uL (4.18-5.33) 10/31/18 18:20 Hgb 11.4 g/dL (12.6-16.3) L 10/31/18 18:20 Hct 36.8 % (38.0-47.0) L 10/31/18 18:20 MCV 80.0 fL (81.5-99.8) L 10/31/18 18:20 MCH 24.8 pg (27.9-34.1) L 10/31/18 18:20 MCHC 31.0 g/dL (32.4-36.7) L 10/31/18 18:20 RDW 18.3 % (11.5-15.2) H 10/31/18 18:20 Plt Count 441 10^3/uL (150-400) H 10/31/18 18:20 MPV 9.9 fL (8.7-11.7) 10/31/18 18:20 Neut % (Auto) 66.6 % (39.3-74.2) 10/31/18 18:20 Lymph % (Auto) 18.6 % (15.0-45.0) 10/31/18 18:20 [place] % (Auto) 11.2 % (4.5-13.0) 10/31/18 18:20 Eos % (Auto) 2.8 % (0.6-7.6) 10/31/18 18:20 Baso % (Auto) 0.6 % (0.3-1.7) 10/31/18 18:20 Nucleat RBC Rel Count 0.0 % (0.0-0.2) 10/31/18 18:20 Absolute Neuts (auto) 5.66 10^3/uL (1.70-6.50) 10/31/18 18:20 Absolute Lymphs (auto) 1.58 10^3/uL (1.00-3.00) 10/31/18 18:20 Absolute Monos (auto) 0.95 10^3/uL (0.30-0.80) H 10/31/18 18:20 Absolute Eos (auto) 0.24 10^3/uL (0.03-0.40) 10/31/18 18:20 Absolute Basos (auto) 0.05 10^3/uL (0.02-0.10) 10/31/18 18:20 Absolute Nucleated RBC 0.00 10^3/uL (0-0.01) 10/31/18 18:20 Immature Gran % 0.2 % (0.0-1.1) 10/31/18 18:20 Immature Gran # 0.02 10^3/uL (0.00-0.10) 10/31/18 18:20 PT 13.3 SEC (12.0-15.0) 10/31/18 18:20 INR 1.05 (0.83-1.16) 10/31/18 18:20 APTT 36.0 SEC (23.0-38.0) 10/31/18 18:20 VBG Lactic Acid 1.0 mmol/L (0.7-2.1) 10/31/18 18:20 Sodium 137 mEq/L (135-145) 10/31/18 18:20 Potassium 5.1 mEq/L (3.5-5.2) 10/31/18 18:20 Chloride 100 mEq/L (97-110) 10/31/18 18:20 Carbon Dioxide 26 mEq/l (22-31) 10/31/18 18:20 Anion Gap 11 mEq/L (6-14) 10/31/18 18:20 BUN 29 mg/dL (7-23) H 10/31/18 18:20 Creatinine 0.9 mg/dL (0.6-1.0) 10/31/18 18:20 Estimated GFR > 60 10/31/18 18:20 Glucose 87 mg/dL (70-100) 10/31/18 18:20 Calcium 9.7 mg/dL (8.5-10.4) 10/31/18 18:20 Total Bilirubin 0.3 mg/dL (0.1-1.4) 10/31/18 18:20 Conjugated Bilirubin 0.0 mg/dL (0.0-0.5) 10/31/18 18:20 Unconjugated Bilirubin 0.3 mg/dL (0.0-1.1) 10/31/18 18:20 AST 18 IU/L (14-46) 10/31/18 18:20 ALT 31 IU/L (9-52) 10/31/18 18:20 Alkaline Phosphatase 92 IU/L (38-126) 10/31/18 18:20 Total Protein 6.9 g/dL (6.3-8.2) 10/31/18 18:20 Albumin 4.2 g/dL (3.5-5.0) 10/31/18 18:20 Lipase 112 IU/L (23-300) 10/31/18 18:20 Urine Color PALE YELLOW 10/31/18 19:45 Urine Appearance CLEAR 10/31/18 19:45 Urine pH 5.0 (5.0-7.5) 10/31/18 19:45 Ur Specific [place] > 1.035 (1.002-1.030) H 10/31/18 19:45 Urine Protein NEGATIVE (NEGATIVE) 10/31/18 19:45 Urine Ketones NEGATIVE (NEGATIVE) 10/31/18 19:45 Urine Blood NEGATIVE (NEGATIVE) 10/31/18 19:45 Urine Nitrate NEGATIVE (NEGATIVE) 10/31/18 19:45 Urine Bilirubin NEGATIVE (NEGATIVE) 10/31/18 19:45 Urine Urobilinogen NEGATIVE EU (0.2-1.0) 10/31/18 19:45 Ur Leukocyte Esterase NEGATIVE (NEGATIVE) 10/31/18 19:45 Urine Glucose NEGATIVE (NEGATIVE) 10/31/18 19:45 Imaging Review: CT Abd/Pelvis Impression: 1. Limited due to lack of oral contrast and significant right anterior abdominal wall and mesenteric scarring. 2. Possible right lower quadrant anterior abscess or fluid collection extending into the right anterior abdominal musculature measuring 6 x 1.1 cm, although this would be better evaluated with oral contrast throughout the gastrointestinal tract. 3. Several fluid-filled loops of small bowel, although no definite obstruction. Recommendation: Repeat study with significant oral contrast to opacify all the loops of bowel, when the patient's medical condition permits. Assessment & Plan Assessment: 73-year-old female with history of Crohn's status post multiple abdominal surgeries including ostomy presenting with: 1. Abdominal pain with CT scan concerning for possible right lower quadrant abscess Plan: Patient will be admitted to the medical-surgical floor. General surgery has been consulted by the emergency department. Will continue ceftriaxone and Flagyl for now. Will also consult wound care for skin an ostomy care. 2. Suspected dehydration with prerenal azotemia Plan: Start IV fluids and repeat metabolic panel in the morning 3. Uncontrolled abdominal pain Plan: This pain could be from chemical burn at her ostomy site versus underlying abscess. Will order p.o. Vicodin and monitor the patient's pain. Patient requests to be DNR status
[2018-10-31] MEDS ORDERED: ONDANSETRON 4 MG/2 ML VIAL IVP PRN (20:59)
[2018-10-31] MEDS ORDERED: ACETAMINOPHEN 325 MG TAB PO PRN (20:59)
[2018-10-31] MEDS: DULoxetine 30 MG CAP PO SCH (21:12)
[2018-10-31] MEDS: busPIRone 5 MG TAB PO SCH (21:12)
[2018-10-31] MEDS: oxyCODONE IR 5 MG TAB PO PRN ×2 (21:12→21:53)
[2018-10-31] MEDS: PREGABALIN 100 MG CAP PO SCH (21:12)
[2018-10-31] MEDS: D5W 1/2 NS W/ 20 KCl/L 1,000 ML IV SCH (21:54)
[2018-11-01 05:11] LABS: PLATELET COUNT 336 10^3/uL (150-400)
[2018-11-01] MEDS: D5W 1/2 NS W/ 20 KCl/L 1,000 ML IV SCH (07:47)
[2018-11-01] MEDS: DULoxetine 30 MG CAP PO SCH (07:50)
[2018-11-01] MEDS: busPIRone 5 MG TAB PO SCH (07:50)
[2018-11-01] MEDS: PREGABALIN 100 MG CAP PO SCH (07:50)
[2018-11-01] MEDS ORDERED: POTASSIUM CL 20 MEQ TAB PO SCH (09:00)
[2018-11-01] MEDS ORDERED: CYANO/VITAMIN B12 1000 MCG TAB PO SCH (09:00)
[2018-11-01] MEDS ORDERED: Herbals/Supplements -Info Only PO SCH (09:00)
[2018-11-01] MEDS ORDERED: ENOXAPARIN 40 MG/0.4 ML SYR SC SCH (09:00)
[2018-11-01] MEDS ORDERED: CHOLECALCIFEROL VIT D3 1,000 UNITS TAB PO SCH (09:00)
--- NOTE | 2018-11-01 10:28 | ASMTCMCOM ---
CM Note CM Note Notes: Pts case discussed w/ Dr. Villa. Pt is a 73 y/o female admitted for abdominal pain and abscess. Pt is a [facility] client. CM spoke to pts social service worker, Ashley (P#: [phone]). Ashley reports that pt goes to the [facility]. Pt gets housekeeping 3x/wk for 2 hrs each time. Surgery has been consulted. PT have been ordered and awaiting recommendations. Needs are TBD at this time. CM to follow. Plan: TBD Date Signed: 11/01/2018 10:27 AM Electronically Signed By:YULI Cruz
--- NOTE | 2018-11-01 11:15 | PDMN ---
Medical Necessity Medical necessity: [facility] M565 Inflammatory Bowel Disease, A-2 days: 73 yo w/ LUQ abd pain at ostomy site, redness, drainage and fever in setting of known Crohn' s disease. Pt w/ hx multi abd surg for Crohn's, klebsiella bacteremia 2019, colectomy s/p ostomy and takedown, enterocutaneous fistula. Eval concerning for abscess, pt w/ severe pain, pt dehydrated w/ prerenal azotemia. Hypotensive overnight. Gen surg consult. IV antibx, wound care consult. IVF. Meets IP criteria for M565 w/ hemodynamic instability, poss abdominal abscess, severe pain, hx bacteremia.
--- NOTE | 2018-11-01 12:36 | SOAPPROG ---
SOAP Progress Note Assessment/Plan: Assessment: Full consult note to follow Review CT with radiology - usure if fluid collection is abscess vs. fistula without PO contrast Given surgical history this is likely a fistula that will eventually open through the skin and drain spontaneously. No surgical intervention at this time OK to DC home and follow-up with us outpatient if needed Currently draining LLQ fistula - gauze and tape with barrier cream Objective: Vital Signs Temp Pulse Resp BP Pulse Ox 36.6 C 75 15 99/68 L 96 11/01/18 08:00 11/01/18 08:00 11/01/18 08:00 11/01/18 08:00 11/01/18 08:00 Laboratory Results 11/01/18 04:55 11/01/18 04:55 PT 13.3 SEC (12.0-15.0) 10/31/18 18:20 INR 1.05 (0.83-1.16) 10/31/18 18:20 ICD10 Worksheet Patient Problems: Problems Problem Status Onset Abdominal pain Acute Acute Crohn's disease Acute Abdominal pain Acute Abdominal pain, chronic, right lower quadrant Acute Altered mental status Acute Bronchitis Acute Chills Acute Constipation Acute Crohns disease Acute Crohns disease of small intestine Acute Fever Acute Intra-abdominal abscess Acute Malnutrition Acute Periumbilical hernia Acute Possible urinary tract infection Acute Postoperative infection Acute Rigors Acute Septic shock Acute Severe sepsis Acute Vomiting Acute Wound infection after surgery Acute
[2018-11-01 12:49] VITALS: BP 104/66
--- NOTE | 2018-11-01 13:01 | WOCRNPDOC ---
[facility] Advanced Assessment Note - Skin Integrity Problem, Advanced Assess Left Lower Abdomen Maceration Dressing Type: Gauze, Other Other Dressing Type: Medipore tape Dressing Description: Intact, Shadowed Closure Description: Not Approximated Exudate Color: Yellow, Green Exudate Characteristic(s): Liquid Integumentary Issue Intervention: Dressing Changed Kenzie Wound Tissue: Erythema, Denuded Wound Bed Color: [place], Red Wound Bed Constitution: Red/[place] - Non Granular Tissue Wound Edges: Attached, Irregular Skin Integrity Problem Comment: This patient is well known to wound care. She has a percutaneous fistula that leaks onto her skin causing breakdown. In prior hospitalizations we have tried everything from pouching the fistula with an ostomy appliance to applying barrier cream. The patient has not been in favor of much of any of it and prefers her current method of gauze and tape changed at her discretion. Dressing taken down and area cleaned with NS and dried. Skin appears better, less broken down than in many of my previous encounters. Farnaz wishes to continue to manage the dressing by herself during this hospitalization. I asked her to request wound care if her needs change. Wound care will not continue to round.
--- NOTE | 2018-11-01 13:58 | PDDCSUM ---
Discharge Summary Discharge Summary: Date of Admission: 10/31/2018 Date of Discharge: 11/01/2018 Consults: Surgery, Wound Care Procedures: CT A/P Followup: PCP, Surgery Hospital Course Problem List: 73-year-old female with history of Crohn's status post multiple abdominal surgeries including ostomy presenting with: 1. Abdominal pain with CT scan concerning for possible right lower quadrant abscess - General surgery consulted who believe this is likely a fistula that will eventually open and drain spontaneously, no surgical intervention recommended - Afebrile overnight, no leukocytosis, will d/c abx, was placed on Ceftriaxone and Flagyl on admission - Consulted wound care 2. Suspected dehydration with prerenal azotemia S/p IVF fluids with improvement in BUN and Cr 3. Uncontrolled abdominal pain -S/p PO Vicodin as IP with improvement in pain Time spent on discharge was >35 minutes with >50% of time spent on patient education and counseling. Patient initially admitted under inpatient status but is being discharged due to rapid improvement that was unexpected and no surgical intervention recommended.
--- NOTE | 2018-11-01 14:46 | GCON ---
[f rep st] CONSULTATION DATE OF CONSULTATION: 11/01/2018 CHIEF COMPLAINT: Abdominal pain, possible abscess. HISTORY OF PRESENT ILLNESS: The patient is a 73-year-old woman well known to me. She has a complica reyna medical history with Crohn disease, and she has had 13 surgeries in a few short years. She has d eveloped enterocutaneous fistulas. She has them draining on the left-hand side. She is mainly able to eat and drink as tolerated and will change her dressing periodically. She was seen by [facility] ye sterday with a fever and was sent to the emergency room. She reports that she has long-standing achi ng on the right abdomen and drainage on the left abdomen. She is feeling very well today. PAST MEDICAL HISTORY: Chronic pain, Crohn disease, degenerative disk disease, depression, enterocuta neous fistulas, pulmonary nodule. PAST SURGICAL HISTORY: Bowel obstructions, breast augmentation, cervical diskectomy, colectomy, lami nectomy, umbilical hernia, plus multiple abdominal surgeries. ALLERGIES: Reviewed. FAMILY HISTORY: Lung cancer in her mother, heart disease in her father. SOCIAL HISTORY: She reports that she is doing very well outpatient with some assistance. REVIEW OF SYSTEMS: Depression, anxiety. Otherwise feeling quite well other than a recent fever. PHYSICAL EXAM: VITAL SIGNS: 36.9, 71, 104/66, 16, 90% on room air. GENERAL: Pleasant, well-nourish ed, well-groomed woman lying on bed, appears very bright and well. HEENT: Normocephalic. No gross hearing deficits. Mucous membranes moist. Pupils equal and round. No scleral icterus. LUNGS: Oni ar to auscultation bilaterally. No increased work of breathing. CARDIAC: Regular rate. ABDOMEN: On the right side of her abdomen, she has faint erythema. It is slightly tender to palpation. On th e left side of her abdomen, she has an obvious enterocutaneous fistula with surrounding erythema. Th e area was cleansed. Barrier cream applied and gauze. PSYCH: Very cheery. NEURO: Grossly intact. LAB RESULTS: I personally reviewed her CT scan. It was done without contrast. On the right side, t here appears to be abscess versus fistula coming into the rectus. This is a suboptimal study. IMPRESSION AND PLAN: The patient is a 73-year-old woman with history of multiple abdominal surgeries with a fever that has since resolved. She is feeling very, very well. We could repeat the CT scan with oral contrast. However, I am not sure that this would change her management. I explained to th e patient that likely this fistula could grow and release and she may have multiple fistulas. We als o discussed if she would get increasing cellulitis, she would need to be seen. She needs to do barri er cream and change the dressing frequently on the fistula on her left abdomen. /[id number]/MODL
--- NOTE | 2018-11-01 14:49 | ASMTLACE ---
DIPESH Length of stay for Answers: 1 day current admission Acuity / Level of Answers: Yes Care: Did the patient have an inpatient admission? Comorbidities - select Answers: Opioid dependence all that apply / Chronic pain Other Notes: Crohn's disease # of Emergency department Answers: 5-8 visits in the last 6 months Social determinants Answers: Mental health diagnosis (anxiety, depression, pers onality disorders, etc.) Score: 16 Date Signed: 11/01/2018 02:48 PM Electronically Signed By:YULI Cruz
--- NOTE | 2018-11-01 14:50 | ASMTCMCOM ---
CM Note CM Note Notes: Pt is being d/c'd today. CM notified Gideon at [facility] of the d/c. Per LUCAS Carl pt is independent. CM available for changes. Date Signed: 11/01/2018 02:49 PM Electronically Signed By:YULI Cruz
== END 2018-11-01 14:46 | disposition home or self-care (01) | DRG 387 ==
LOC: F3E 20:57 → OBSVTOIN 21:00
PROVIDERS: ADMIT Family Medicine; ATTEND Family Medicine
DX: K50.913 Crohn's disease, unspecified, with fistula (principal); E86.0 Dehydration; R79.89 Other specified abnormal findings of blood chemistry; G89.29 Other chronic pain; Z93.4 Other artificial openings of gastrointestinal tract status; Z66 Do not resuscitate; Z90.49 Acquired absence of other specified parts of digestive tract; Z72.0 Tobacco use; Z88.0 Allergy status to penicillin
CPT/HCPCS: 96365; J0696; J1170; J1650